=== PATIENT | male | born 1950 | race Caucasian/White ===

== ENCOUNTER 2019-12-11 05:08 | Day surgery (SDC) | payer MEDICARE, SELFPAY ==
[2019-12-11] VITALS (9 sets, daily range): BP systolic 143–160; BP diastolic 74–98; PULSE 62–81; RESP 12–20; TEMP 36.6; O2SAT 94–100; BMI 32.5
--- NOTE | 2019-12-11 10:00 | ECG_ITS ---
Measurements Intervals [place] Rate: 74 P: AL: 0 QRS: 44 QRSD: 105 T: 105 QT: 418 QTc: 464 Interpretive Statements ATRIAL FIBRILLATION VENTRICULAR PREMATURE COMPLEX ANTEROSEPTAL INFARCT, AGE INDETERMINATE BORDERLINE ST-T WAVE ABNORMALITY- INF/LAT LEADS BASELINE ARTIFACT- I, II, III, V1-V3 ABNORMAL ECG Electronically Signed On 12-11-2019 10:48:56 [employer] by Eliot Lacy D.O.
--- NOTE | 2019-12-11 10:02 | SUR.PREOP ---
1000 PATIENT ARRIVES TO [facility] [address] MAHAJAN. AND FAMILY AT BEDSIDE. ORIENTED TO UNIT, PROCEDURE EXPLAINED, ALL QUESTIONS ANSWERED, IV STARTED, LABS DRAWN AND SENT, VITALS OBTAINED, AND CONSENT SIGNED.
--- NOTE | 2019-12-11 10:20 | ECG_ITS ---
Measurements Intervals [place] Rate: 62 P: 39 CT: 211 QRS: 35 QRSD: 108 T: 80 QT: 476 QTc: 485 Interpretive Statements SINUS RHYTHM WITH FIRST DEGREE AV BLOCK VENTRICULAR PREMATURE COMPLEXES LEFT ATRIAL ENLARGEMENT ANTEROSEPTAL INFARCT, AGE INDETERMINATE BORDERLINE ST-T WAVE ABNORMALITY- LATERAL LEADS ABNORMAL ECG Electronically Signed On 12-11-2019 13:23:54 [employer] INTELLIGENCE by Eliot Lacy D.O.
[2019-12-11 10:33] LABS: Basophils Absolute Auto 0.1 K/mm3 (0.0-0.1); Basophils Percent Auto 0.7 % (0.2-1.2); Eosinophils Absolute Auto 0.4 K/mm3 (0-0.3); Eosinophils Percent Auto 5.4 % (0-4.4); Hematocrit 42.7 % (42.0-52.0); Hemoglobin 13.7 g/dL (14.0-18.0); Immature Granulocyte Absolute 0.01 K/mm3 (0.00-0.031); Immature Granulocyte Percent A 0.1 % (0-0.5); Lymphocytes Absolute Auto 1.43 K/mm3 (0.9-3.2); Lymphocytes Percent Auto 21.3 % (18.3-44.2); Mean Corpuscular HGB Conc 32.1 g/dl (32-36); Mean Corpuscular Hemoglobin 30.7 pg (26-34); Mean Corpuscular Volume 95.7 fl (80-100); Mean Platelet Volume 9.9 fl (7.4-10.4); Monocytes Absolute Auto 0.6 K/mm3 (0.1-0.6); Monocytes Percent Auto 9.1 % (2.6-8.5); Neutrophils Absolute Auto 4.3 K/mm3 (1.3-6.7); Neutrophils Percent Auto 63.4 % (45.5-73.1); Platelet Count Result 191 k/mm3 (150-375); Red Blood Count 4.46 M/mm3 (4.6-6.20); Red Cell Distribution Width 13.5 % (11.5-14.5); White Blood Count 6.7 K/mm3 (4.5-10.0)
[2019-12-11 11:19] LABS: Blood Urea Nitrogen 49 mg/dL (9-20); Calcium 8.6 mg/dL (8.4-10.2); Carbon Dioxide 21 mmol/L (22-30); Chloride 110 mmol/L (98-107); Estimated CRCL calculation 36 ml/min; Estimated Glomerular Filt Rate 27; Glucose 105 mg/dL (75-110); Potassium 4.6 mmol/L (3.4-5.0); Sodium 141 mmol/L (137-145)
--- NOTE | 2019-12-11 12:25 | P.HPUP_ITS ---
History and Physical Update Update Date/Time: 12/11/19 12:25 Patient who had cardioversion in July, successfully, but later went back and AFib in complained of feeling sluggish and having some ZAVALETA. He has been started on amiodarone and is here for another cardioversion. He has been compliant with the Eliquis and has not missed any doses. History of CAD, CABG, CKD. Reviewed risks and benefits of cardioversion. Risks include breathing problems, stroke. History and Physical has been reviewed, including an updated exam of the patient. There are NO changes in the patient's condition. Risks, benefits, and alternatives have been discussed and questions answered. Angel ryder agrees to proceed with procedure.
--- NOTE | 2019-12-11 12:26 | WPDMODSED ---
Moderate Sedation Note-Pt Data Patient Data Allergies Allergy/AdvReac Type Severity Reaction Status Date / Time morphine Allergy Mild TREMORS Unverified 07/18/19 13:52 Home Medications Medication Instructions Recorded Confirmed Type amiodarone 200 mg PO DAILY 12/11/19 12/11/19 History amlodipine 10 mg PO DAILY 12/11/19 12/11/19 History apixaban [Eliquis] 5 mg PO BID 12/11/19 12/11/19 History aspirin 81 mg PO DAILY 12/11/19 12/11/19 History atorvastatin 40 mg PO HS 12/11/19 12/11/19 History carvedilol 25 mg PO BID 12/11/19 12/11/19 History insulin lispro [Humalog U-100 See Rx Instructions .ROUTE .COMPLEX 12/11/19 12/11/19 History Insulin] losartan 100 mg PO DAILY 12/11/19 12/11/19 History torsemide 20 mg PO QAM 12/11/19 12/11/19 History Current Medications: Active Medications Sodium Chloride (Normal Saline Iv) 1,000 mls @ 30 mls/hr IV CONT .Q24H AURELIO Sedation/Anesthesia: No previous sedation/anesthesia problems (including family history). [facility] Social History Social History Spiritual care concerns: No Mod Sed Physical Exam Physical Exam Pre Procedural Exam: Normal: Appearance, Eyes, Ears, Nose, Neck, Throat, Airway, Lungs, Heart Size, Heart Rate, Heart Rhythm (Irregular), Neuro Exam, Abdomen, Extremities and Skin and Variation: Heart Rhythm (Irregular) Hours since solid foods: 12 Hours since liquid intake: 12 Internal Medicine - PN: Obj Da Vital Signs Vital Signs: Vital Signs - 24 hr 12/11/19 10:30 12/11/19 12:20 Temperature 36.6 C Pulse Rate 81 76 Respiratory Rate 12 17 Blood Pressure 158/98 H 160/92 H Pulse Oximetry 99 100 Meds/Results Medications: Active Medications Generic Name Dose Route Start Last Admin Trade Name Freq PRN Reason Stop Dose Admin Sodium Chloride 1,000 mls @ 30 mls/hr 12/11/19 06:25 Normal Saline Iv IV CONT .Q24H [facility] Labs CBC & Chem 7: 12/11/19 10:25 12/11/19 10:57 Labs: Laboratory Results - last 24 hr 12/11/19 12/11/19 10:25 10:57 WBC 6.7 RBC 4.46 L Hgb 13.7 L Hct 42.7 MCV 95.7 MCH 30.7 MCHC 32.1 RDW 13.5 Plt Count 191 MPV 9.9 Immature Gran % (Auto) 0.1 Neut % (Auto) 63.4 Lymph % (Auto) 21.3 [place] % (Auto) 9.1 H Eos % (Auto) 5.4 H Baso % (Auto) 0.7 Lymph # (Auto) 1.43 [place] # (Auto) 0.6 Eos # (Auto) 0.4 H Baso # (Auto) 0.1 Abs Immat Gran (auto) 0.01 Absolute Neuts (auto) 4.3 Absolute Nucleated RBC 0.0 Nucleated RBC % 0.0 Sodium 141 Potassium 4.6 Chloride 110 H Carbon Dioxide 21 L BUN 49 H Creatinine 2.40 H Estim Creat Clear Calc 36 Estimated GFR 27 L Glucose 105 Calcium 8.6 Magnesium 2.0 ASA Classification/Sedation ASA Classification/Sedation ASA Class: III Emergent: No Risks: Risks, benefits and alternatives explained and patient/family accepted plan for sedation. Patient re-evaluated immediately prior to sedation.
--- NOTE | 2019-12-11 12:42 | PM.PROC ---
Procedure Note - Detailed Date of procedure: 12/11/19 Pre-op diagnosis: A-FIB Post-op diagnosis: other (Successful cardioversion to NSR) Procedure performed: Conscious sedation new line elective electrical cardioversion Description of procedure: Conscious sedation: Assessment: The patient has no history of anesthesia problems. The patient's oropharynx is clear. The patient was deemed to be a good candidate for conscious sedation. The patient had continuous hemodynamic monitoring during the procedure. Start time: 1231 Completion time: 1241 Total conscious sedation time: 10 minutes Medications: Versed 3 mg, fentanyl 75 mcg IV push Trained observer: Bereket Maciel RN Outcome: The patient tolerated the procedure well with no complications. Cardioversion: After informed consent and the above conscious sedation, the patient underwent elective electrical synchronized cardioversion with 200 joules of biphasic energy and converted to normal sinus rhythm. There were no complications. Anesthesia: other (Conscious sedation) Surgeon: Shayna Matta MD Estimated blood loss (mL): 0 Drains: No Packing: No Pathology: none sent Complications: No immediate complications Condition: stable Disposition: observation Findings: Status post successful cardioversion from atrial fibrillation to sinus rhythm. 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 Hopefully will maintain NSR on amiodarone.
--- NOTE | 2019-12-11 14:00 | SUR.PHASEII ---
8261 Detailed written and verbal discharge instructions reviewed w patient and family at bedside, all verbalize understanding. IV dc'd. 1400 Pt taken out in wheelchair.
== END 2019-12-11 14:00 | disposition home or self-care (01) ==
PROVIDERS: PCP Nurse Practitioner Adult Health; Visit Provider Internal Medicine Cardiovascular Disease
PROC: 5A2204Z Restoration of Cardiac Rhythm, Single (ICD-10-PCS; principal; 2019-12-11 11:30)
DX: I48.0 Paroxysmal atrial fibrillation (principal); I25.10 Atherosclerotic heart disease of native coronary artery without angina pectoris; R06.09 Other forms of dyspnea; I12.9 Hypertensive chronic kidney disease with stage 1 through stage 4 chronic kidney disease, or unspecified chronic kidney disease; N18.4 Chronic kidney disease, stage 4 (severe); E11.22 Type 2 diabetes mellitus with diabetic chronic kidney disease; I25.2 Old myocardial infarction; I25.5 Ischemic cardiomyopathy; I49.3 Ventricular premature depolarization; E78.5 Hyperlipidemia, unspecified; Z79.4 Long term (current) use of insulin; Z79.82 Long term (current) use of aspirin; Z79.01 Long term (current) use of anticoagulants; Z95.1 Presence of aortocoronary bypass graft; Z79.02 Long term (current) use of antithrombotics/antiplatelets
CPT/HCPCS: 36415; 80048; 83735; 85025; 92960; 93005; J2250; J3010; J7040

== ENCOUNTER 2019-12-13 11:00 | Outpatient (RCR) | payer MEDICARE, SELFPAY ==
[2019-10-04 08:08] VITALS: BMI 34.3
[2019-10-04 08:10] VITALS: BMI 34.3
[2019-12-13 10:50] VITALS: BMI 34.3
[2019-12-13 10:54] VITALS: BMI 34.3
== END 2019-12-18 23:59 | disposition home or self-care (01) ==
LOC: ANHDMC 11:00
PROVIDERS: PCP Nurse Practitioner Adult Health; Visit Provider Internal Medicine Endocrinology, Diabetes & Metabolism
DX: E11.65 Type 2 diabetes mellitus with hyperglycemia (principal); Z71.3 Dietary counseling and surveillance; Z71.89 Other specified counseling
CPT/HCPCS: 97802; 97803; G0108; G0109

== ENCOUNTER 2019-12-20 14:30 | Outpatient (RCR) | payer MEDICARE, SELFPAY | END 2020-03-19 23:59 | disposition home or self-care (01) | LOC: ANHDMC 14:30 | PROVIDERS: PCP Nurse Practitioner Adult Health; Visit Provider Internal Medicine Endocrinology, Diabetes & Metabolism | DX: E11.65 Type 2 diabetes mellitus with hyperglycemia (principal); Z71.89 Other specified counseling | CPT/HCPCS: G0108 ==

== ENCOUNTER 2020-01-14 09:17 | Outpatient (CLI) | payer MEDICARE, SELFPAY ==
--- NOTE | 2020-01-16 23:19 | WPDPFTINT ---
PFT Interpretation PFT Interpretation: DOS: 01/14/2020 REQUESTING: Lindy León NP REASON FOR TESTING: Amiodarone monitoring; ZAVALETA PULMONARY FUNCTION TESTS Results are reproducible. Spirometry: Mild decrease in FEV1, 73% predicted, 2.4 L. Mild decrease in FVC, 68%. Normal FEV1%. No bronchodilator was given. Lung volumes: Normal TLC, 100%. Increased residual volume 147% consistent with moderate air trapping. Increased airway resistance. Diffusion: DLCO73%, mildly decreased. Flow volume loop: Unremarkable. IMPRESSION: Mild ventilatory impairment with moderate air trapping and increased airway resistance which suggests an obstructive process. Mild diffusion impairment. There is no prior testing to compare. A trial of bronchodilator therapy can be considered for dyspnea. Annmarie Valenzuela MD
== END 2020-01-14 09:18 | disposition home or self-care (01) ==
PROVIDERS: PCP Nurse Practitioner Adult Health; Visit Provider Nurse Practitioner Adult Health
DX: Z51.81 Encounter for therapeutic drug level monitoring (principal); Z79.899 Other long term (current) drug therapy; R94.2 Abnormal results of pulmonary function studies
CPT/HCPCS: 94375; 94726; 94729

== ENCOUNTER 2020-03-27 09:58 | Outpatient (CLI) | payer MEDICARE, SELFPAY ==
[2020-03-27 10:13] LABS: Basophils Absolute Auto 0.1 K/mm3 (0.0-0.1); Basophils Percent Auto 1.1 % (0.2-1.2); Eosinophils Absolute Auto 0.5 K/mm3 (0-0.3); Eosinophils Percent Auto 7.1 % (0-4.4); Hematocrit 40.9 % (42.0-52.0); Hemoglobin 13.4 g/dL (14.0-18.0); Immature Granulocyte Absolute 0.03 K/mm3 (0.00-0.031); Immature Granulocyte Percent A 0.5 % (0-0.5); Lymphocytes Absolute Auto 1.52 K/mm3 (0.9-3.2); Mean Corpuscular HGB Conc 32.8 g/dl (32-36); Mean Corpuscular Hemoglobin 31.2 pg (26-34); Mean Corpuscular Volume 95.3 fl (80-100); Mean Platelet Volume 9.4 fl (7.4-10.4); Monocytes Absolute Auto 0.8 K/mm3 (0.1-0.6); Monocytes Percent Auto 11.8 % (2.6-8.5); Neutrophils Absolute Auto 3.5 K/mm3 (1.3-6.7); Neutrophils Percent Auto 55.5 % (45.5-73.1); Platelet Count Result 171 k/mm3 (150-375); Red Blood Count 4.29 M/mm3 (4.6-6.20); Red Cell Distribution Width 14.2 % (11.5-14.5); White Blood Count 6.3 K/mm3 (4.5-10.0)
== END 2020-03-27 09:59 | disposition home or self-care (01) ==
LOC: ANHLAB 10:01
PROVIDERS: PCP Nurse Practitioner Adult Health; Visit Provider Nurse Practitioner Adult Health
DX: Z79.01 Long term (current) use of anticoagulants (principal)
CPT/HCPCS: 36415; 85025

== ENCOUNTER 2020-12-31 09:00 | Outpatient (RCR) | payer MEDICARE, SELFPAY ==
[2020-10-02 12:20] VITALS: PULSE 63
[2020-10-13 17:35] LABS: Glucose Point of Care 107 (65-105)
[2020-10-16 07:14] LABS: Glucose Point of Care 132 (65-105)
[2020-10-16 07:14] LABS: Glucose Point of Care 105 (65-105)
[2020-10-16 07:14] LABS: Glucose Point of Care 81 (65-105)
[2020-10-16 17:42] LABS: Glucose Point of Care 198 (65-105)
[2020-10-16 17:42] LABS: Glucose Point of Care 157 (65-105)
[2020-11-05 15:06] LABS: Glucose Point of Care 88 (65-105)
[2020-11-05 15:06] LABS: Glucose Point of Care 118 (65-105)
--- NOTE | 2020-12-04 07:55 | PCCPR ---
Miguel Ritchie called states having some plumbing work done at home will not make it in today.
[2020-12-17 10:42] LABS: Glucose Point of Care 320 (65-105)
--- NOTE | 2020-12-29 08:15 | PCCPR ---
absent today due to inclement weather
== END 2020-12-31 23:59 | disposition home or self-care (01) ==
LOC: ANHCPREHAB 09:00
PROVIDERS: PCP Nurse Practitioner Adult Health; Visit Provider Nurse Practitioner Adult Health
DX: Z95.5 Presence of coronary angioplasty implant and graft (principal)
CPT/HCPCS: 82948; 93798

== ENCOUNTER 2021-01-01 09:55 | Outpatient (RCR) | payer MEDICARE, SELFPAY ==
[2021-01-01 00:04] VITALS: PULSE 63
== END 2021-01-01 11:10 | disposition home or self-care (01) ==
LOC: ANHCPREHAB 09:55
PROVIDERS: PCP Nurse Practitioner Adult Health; Visit Provider Nurse Practitioner Adult Health
DX: Z95.5 Presence of coronary angioplasty implant and graft (principal)
CPT/HCPCS: 93798

== ENCOUNTER 2022-11-11 12:53 | Emergency (ER) | payer MEDICARE, SELFPAY ==
--- NOTE | 2022-11-11 13:15 | ED.URI ---
HPI - URI/Sore Throat General Chief Complaint: Upper Respiratory Infection Stated Complaint: flu Time Seen by Provider: 11/11/22 14:20 Source: patient, RN notes reviewed and old records reviewed Mode of arrival: ambulatory Limitations: no limitations History of Present Illness HPI Narrative: 72-year-old male presents to the [facility] with complaints of body aches, chills, generalized not feeling well for 5 to 6 days. Was told by his dialysis center he needed to ?find out what it is. ? Patient stating that he is feeling a little bit better than he has been. Related Data Home Medications Medication Instructions Recorded Confirmed amiodarone 200 mg tablet 200 mg PO DAILY 12/11/19 12/11/19 amlodipine 10 mg tablet 10 mg PO DAILY 12/11/19 12/11/19 apixaban 5 mg tablet (Eliquis) 5 mg PO BID 12/11/19 12/11/19 aspirin 81 mg chewable tablet 81 mg PO DAILY 12/11/19 12/11/19 atorvastatin 40 mg tablet 40 mg PO HS 12/11/19 12/11/19 carvedilol 25 mg tablet 37.5 mg PO BID 12/11/19 10/02/20 insulin lispro 100 unit/mL See Rx Instructions .Route .COMPLEX 12/11/19 12/11/19 subcutaneous solution (Humalog U-100 Insulin) bumetanide 1 mg tablet 1 mg 10/02/20 finasteride 5 mg tablet 5 mg DAILY 10/02/20 10/02/20 sodium bicarbonate 650 mg tablet 650 mg PO BID 10/02/20 10/02/20 tamsulosin 0.4 mg capsule 0.4 mg PO 10/02/20 tramadol 50 mg tablet 50 mg PO PRN Pain 10/02/20 chlorthalidone 25 mg tablet 25 mg PO DAILY 11/11/22 11/11/22 Allergies Allergy/AdvReac Type Severity Reaction Status Date / Time morphine Allergy Mild TREMORS Unverified 11/11/22 13:41 Review of Systems Review of Systems: All systems reviewed & are unremarkable except as noted in HPI and below Constitutional: Constitutional: Reports as per HPI, Reports chills and Reports fatigue Eyes: Eyes: Reports no additional eye complaints ENT: Reports system reviewed and no additional complaints, except as documented Cardiovascular: Cardiovascular: Reports no additional cardiovascular complaints, Denies chest pain and Denies dyspnea Respiratory: Respiratory: Reports no additional respiratory complaints, Denies chest congestion, Denies cough and Denies dyspnea Gastrointestinal: Gastrointestinal: Reports no additional gastrointestinal complaints, Denies abdominal pain, Denies nausea and Denies vomiting Musculoskeletal: Musculoskeletal: Reports no additional musculoskeletal complaints Integumentary/Breasts: Skin/Breast: Reports system reviewed and no additional complaints, except as docu Neurologic: Reports system reviewed and no additional complaints, except as documented Psychiatric: Psychiatric: Reports no additional psychiatric complaints Allergic/Immunologic: Allergic/Immunologic: Reports no additional allergic/immunologic complaints PMFSH Family History Family History Father No problems noted. Sibling Hypertension Cancer Grandparent Hypertension Diabetes mellitus Mother Ovarian cancer Sibling Cancer Social History Social History Smoking status: Never smoker Spiritual care concerns: No Comments At the time of my signature, I reviewed and agree with the nursing past medical, surgical, social, and family history. There is no relevant family history pertinent to the patient complaint. Exam Const: General: cooperative, healthy appearing, comfortable, no acute distress, well developed, alert and well nourished Nutritional Appearance: well nourished and obese Orientation/consciousness: patient oriented x3 Limitations: no limitations HENMT: Head: normal to inspection Ears: hearing grossly normal bilaterally and external ears normal Face/Nose/Sinus: Normal external nose present, Normal nares present, Normal nasal mucous membranes and turbinates present and normal facial exam Face and sinus: normal facial exam Mouth: Yes Normal oral and jordon
[2022-11-11 13:27] VITALS: BP 116/60; PULSE 68; RESP 23; TEMP 36.7; O2SAT 98
== END 2022-11-11 14:27 | disposition home or self-care (01) ==
PROVIDERS: Emergency Provider Nurse Practitioner; PCP Internal Medicine Nephrology
DX: J10.1 Influenza due to other identified influenza virus with other respiratory manifestations (principal); Z20.822 Contact with and (suspected) exposure to COVID-19; Z79.82 Long term (current) use of aspirin; I25.10 Atherosclerotic heart disease of native coronary artery without angina pectoris; Z95.5 Presence of coronary angioplasty implant and graft; E78.00 Pure hypercholesterolemia, unspecified; I25.2 Old myocardial infarction; J44.9 Chronic obstructive pulmonary disease, unspecified; I13.11 Hypertensive heart and chronic kidney disease without heart failure, with stage 5 chronic kidney disease, or end stage renal disease; E11.22 Type 2 diabetes mellitus with diabetic chronic kidney disease; N18.6 End stage renal disease; Z99.2 Dependence on renal dialysis; Z79.4 Long term (current) use of insulin
CPT/HCPCS: 87426; 87804; 99213; C9803; G0463

== ENCOUNTER 2023-02-11 09:26 | Outpatient (CLI) | payer MEDICARE, SELFPAY ==
--- NOTE | 2023-02-11 | ECHO_ITS ---
Patient Info Name: Erma Harmon Age: 72 years : 1950 Gender: Male Ht: 73 in Wt: 225 lbs BSA: 2.31 m2 HR: 87 bpm BP: 110 / 65 mmHg Heart Rhythm: Sinus Rhythm Exam Date: 02/11/2023 10:04 AM Exam Location: [facility] Patient Status: Outpatient Admit Date: 02/11/2023 Staff Ordering Physician: Shayna Matta MD Patron Attendant: Rafael Fleming, THEA, RT Attending Provider: Shayna Matta MD Referring Physician: Sigrid DUNCAN; Exam Type: CA echo doppler color flow Study Info Indications I35.0 - Nonrheumatic aortic (valve) stenosis Complete two-dimensional, color flow and Doppler transthoracic echocardiogram is performed. Strain analysis performed. Summary 1. Complete two-dimensional, color flow and Doppler transthoracic echocardiogram is performed. 2. Moderate concentric LVH with good systolic function and grade 1 diastolic noncompliance. 3. Mild aortic valve stenosis with calcification and immobilization of the right coronary cusp. 4. Overall mild aortic stenosis valve area of approximately 1.6 cm2. 5. Grade 1 diastolic noncompliance. Left Ventricle Left ventricular chamber dimension is normal. Left ventricular systolic function is normal, estimated at 55-60%. There is moderate concentric increased left ventricular wall thickness. The left ventricular diastolic function is grade I diastolic dysfunction. Right Ventricle Right ventricular chamber dimension is normal. Left Atria Left atrial chamber dimension is normal. Right Atria Right atrial chamber dimension is normal. Aortic Valve The aortic valve is trileaflet. There is mild aortic valve stenosis with a peak velocity of 240 cm/s, mean gradient of 14 mmHg, and aortic valve area of 1.9 cm2. There is no aortic valve regurgitation. Pulmonic Valve The pulmonic valve is not well visualized. Mitral Valve The mitral valve has normal leaflets. The mitral valve annulus is mildly calcified. Tricuspid Valve The tricuspid valve leaflets are normal. Pericardium/Pleural The pericardium appears normal. Aorta The aortic root size at the sinus of Valsalva is normal. Left Ventricular Outflow Tract Name Value Normal LVOT 2D LVOT Diameter 2.1 cm LVOT Doppler LVOT Peak Gradient 7 mmHg LVOT Mean Gradient 4 mmHg LVOT VTI 24 cm LVOT VTI/AV VTI Ratio 0.6 LVOT Stroke Volume 81 ml LVOT CO 6.5 l/min LVOT CI 2.8 l/min/m2 Mitral Valve Name Value Normal MV Doppler MV Decel [place] 357 cm/s2 MV PHT 52 ms MV Area (PHT) 4.2 cm2 4.0-5.0 MV Diastolic Function ---------
== END 2023-02-11 09:27 | disposition home or self-care (01) ==
PROVIDERS: Visit Provider Internal Medicine Cardiovascular Disease
DX: I35.0 Nonrheumatic aortic (valve) stenosis (principal)
CPT/HCPCS: 93306

== ENCOUNTER 2023-03-03 12:44 | Inpatient (IN) | payer MEDICARE, SELFPAY ==
--- NOTE | ~2023-03-03 | CT_ITS ---
Non-contrast CT scan of the Abdomen and Pelvis Clinical indication: Pain Technique: 2.5 mm axial scans were obtained through the abdomen and pelvis without intravenous or or al contrast. Dose reduction technique was used on this scan by utilizing automated exposure control a nd iterative reconstruction technique. The dose-length product (DLP) was 1330.69 mGy-cm. COMPARISON: 10/02/2019 Findings: Images through the lung bases reveal chronic scarring or atelectasis at the right middle l obe, unchanged. There is no evidence of renal or ureteral calculi. The kidneys and the ureters are nondilated. The liver, spleen, pancreas, and adrenals appear normal. Probable post cholecystectomy change versus contracted gallbladder with small stones. There is no aortic aneurysm. There is no evidence of bowel obstruction. Images through the pelvis were performed. There is no evidence of ascites or lymphadenopathy. There i s present in the urinary bladder. Prostate gland minimally enlarged. Advanced degenerative spondylosi s of the lumbar spine noted. Impression: Air in the urinary bladder. Correlate for iatrogenic air versus any possibility of infectious process . No distinct evidence to suggest fistula, but this would be an alternative consideration as well. Reviewed, dictated and finalized at location . Impression: Air in the urinary bladder. Correlate for iatrogenic air versus any possibility of infectious process. No distinct evidence to suggest fistula, but this would be an alternative consideration as well.
--- NOTE | ~2023-03-03 | CT_ITS ---
EXAMINATION: CT lumbar spine wo con DATE: 03/06/2023 12:49 INDICATION: Right-sided lumbar radiculopathy. TECHNIQUE: Computed tomography (CT) of the lumbar spine was performed without intravenous contrast. A utomated exposure control and iterative reconstruction technique were employed. The dose-length produ ct was 1302.71 mGy-cm. COMPARISON: None FINDINGS: There is 12 degrees levoscoliosis of lumbar spine. There is 3 mm retrolisthesis of L4 on L5 and L5 on S1. Vertebral body heights are normal. There is severely decreased disc height from L2-L3 through L5-S1 with endplate remodeling. Osseous central spinal canal is developmentally small in lumb ar spine. The following disc levels are specifically discussed: L1-L2: The disc is bulging. There is moderate bilateral facet joint osteoarthritis. There is mild jose daniel ateral neural foraminal stenosis. There is mild central canal stenosis. L2-L3: The disc is bulging. There is severe bilateral facet joint osteoarthritis. There is moderate b ilateral neural foraminal stenosis. There is moderate central canal stenosis. L3-L4: The disc is bulging. There is severe bilateral facet joint osteoarthritis. There is moderate b ilateral neural foraminal stenosis. There is severe central canal stenosis. L4-L5: The disc is bulging. There is severe bilateral facet joint osteoarthritis. There is moderate b ilateral neural foraminal stenosis. There is severe central canal stenosis. L5-S1: The disc is bulging. There is severe bilateral facet joint osteoarthritis. There is moderate b ilateral neural foraminal stenosis. There is moderate central canal stenosis. IMPRESSION: 1. Severe lumbar spondylosis. Reviewed, dictated and finalized at location A.
--- NOTE | ~2023-03-03 | XR_ITS ---
EXAM: XR hip RT min 2V DATE: 03/06/2023 12:55 HISTORY: pain, right hip radiating, no injury . COMPARISON: None available. FINDINGS: Normal mineralization. No fracture or dislocation. No lytic or blastic lesion. Severe supe rior right hip joint space narrowing, with likely [id number] contact. Moderate right hip osteophyto sis. Mild scattered pelvic enthesopathy. Degenerative change in the lower lumbar spine. No erosion or periosteal change. Atherosclerotic vascular calcification. IMPRESSION: Severe right hip osteoarthritis. Reviewed, dictated and finalized at location K.
[2023-03-03 13:19] VITALS: BP 122/64; PULSE 72; RESP 18; TEMP 35.7; O2SAT 96
[2023-03-03 15:03] LABS: Basophils Absolute Auto 0.1 K/mm3 (0.0-0.1); Basophils Percent Auto 1.2 % (0.2-1.2); Eosinophils Absolute Auto 0.3 K/mm3 (0-0.3); Eosinophils Percent Auto 4.2 % (0-4.4); Hematocrit 34.8 % (42.0-52.0); Hemoglobin 11.3 g/dL (14.0-18.0); Immature Granulocyte Absolute 0.03 K/mm3 (0.00-0.031); Immature Granulocyte Percent A 0.4 % (0-0.5); Lymphocytes Absolute Auto 1.42 K/mm3 (0.9-3.2); Lymphocytes Percent Auto 20.8 % (18.3-44.2); Mean Corpuscular HGB Conc 32.5 g/dl (32-36); Mean Corpuscular Hemoglobin 33.6 pg (26-34); Mean Corpuscular Volume 103.6 fl (80-100); Mean Platelet Volume 9.6 fl (7.4-10.4); Monocytes Absolute Auto 0.6 K/mm3 (0.1-0.6); Monocytes Percent Auto 8.6 % (2.6-8.5); Neutrophils Absolute Auto 4.4 K/mm3 (1.3-6.7); Neutrophils Percent Auto 64.8 % (45.5-73.1); Platelet Count Result 147 k/mm3 (150-375); Red Blood Count 3.36 M/mm3 (4.6-6.20); White Blood Count 6.8 K/mm3 (4.5-10.0)
[2023-03-03] MEDS: ACETAMINOPHEN 500 MG TABLET 1000 MG PO (15:09)
[2023-03-03] MEDS: CYCLOBENZAPRINE HCL 5 MG TABLET PO (15:09)
[2023-03-03 15:36] LABS: Appearance Urine Turbid (Clear); Bacteria Urine 4+ /hpf; Bilirubin Urine Negative (Negative); Blood Urine 2+ (Negative); Color Urine Yellow (Yellow); Glucose Urine UA Negative (Negative); Ketones Urine Negative (Negative); Leukocyte Esterase Ur 3+ LEU/UL (Negative); Mucus Urine Present /lpf; Need Manual Microscopic Reviewed; Nitrate Urine Negative (Negative); Non Pathogenic Casts >20; Protein Urine 2+ mg/dL (Negative); RBC Urine 0-2 /hpf (0-2); Specific Grav Ur 1.016 (1.001-1.035); Squamous Epithelial Cell Urine Few /hpf (Few); WBC Urine >100 /hpf; pH Urine 6.5 (5.0-9.0)
[2023-03-03 15:38] LABS: Add Urine Microscopic? YES
--- NOTE | 2023-03-03 15:56 | ED.GENADULT ---
HPI - General Adult General Chief complaint: Unspecified <TALYA Corral Last Filed: 03/03/23 19:37> Stated complaint: severe buttock pain, sciatica <TALYA Corral Last Filed: 03/03/23 19:37> Time Seen by Provider: 03/03/23 13:33 <TALYA Corral Last Filed: 03/03/23 19:37> Source: patient <TALYA Corral Last Filed: 03/03/23 19:37> Mode of arrival: ambulatory <TALYA Corral Last Filed: 03/03/23 19:37> Limitations: no limitations <TALYA Corral Last Filed: 03/03/23 19:37> History of Present Illness HPI narrative: Patient is a 73 y/o male who presents to the ED with c/o right lower back pain. Patient reports having intermittent pain in his right lower back, extending down his buttock and posterior leg for the past 2 weeks. He states pain is worse with standing upright, in the mornings, and with walking. He denies any fall or injury. He has been taking ibuprofen for this which does provide relief of the pain temporarily. Denies any fever, abdominal pain, nausea, vomiting. Denies any saddle anesthesia, numbness, weakness, bowel or bladder incontinence. Denies known history of sciatica. He does report history of end-stage renal disease on hemodialysis MWF, awaiting kidney transplant, history of numerous kidney stones and kidney infections. <TALYA Corral Last Filed: 03/03/23 19:37> Related Data Home medications: Home Medications Medication Instructions Recorded Confirmed amiodarone 200 mg tablet 200 mg PO HS 12/11/19 03/03/23 atorvastatin 40 mg tablet 40 mg PO HS 12/11/19 03/03/23 carvedilol 25 mg tablet 25 mg PO BID 12/11/19 03/03/23 insulin lispro 100 unit/mL See Rx Instructions .Route .COMPLEX 12/11/19 03/03/23 subcutaneous solution (Humalog U-100 Insulin) finasteride 5 mg tablet 5 mg PO HS 10/02/20 03/03/23 tamsulosin 0.4 mg capsule 0.4 mg PO HS 10/02/20 03/03/23 tramadol 50 mg tablet 50 mg PO DAILY PRN Pain 10/02/20 03/03/23 citalopram 20 mg tablet 20 mg PO DAILY 03/03/23 03/03/23 pramipexole 0.5 mg tablet 0.5 mg PO BID 03/03/23 03/03/23 sevelamer carbonate 800 mg tablet 800 mg PO TID 03/03/23 03/03/23 torsemide 20 mg tablet 40 mg PO DAILY 03/03/23 03/03/23 warfarin 5 mg tablet 5 mg PO HS 03/03/23 03/03/23 <Brenda Le PA-C - Last Filed: 03/03/23 19:37> Allergies/adverse reactions: Allergies Allergy/AdvReac Type Severity Reaction Status Date / Time morphine Allergy Mild TREMORS Verified 03/03/23 13:29 <Brenda Le PA-C - Last Filed: 03/03/23 19:37> Review of Systems Review of Systems: CONSTITUTIONAL: Denies fever, chills, or sweats. CARDIOVASCULAR: Denies chest pain. RESPIRATORY: Denies dyspnea. GASTROINTESTINAL: Denies abdominal pain, nausea, vomiting, or diarrhea. GENITOURINARY: See HPI. SKIN: Denies rash or itching. MUSCULOSKELETAL: See HPI. NEUROLOGIC: Denies tingling, numbness, or weakness. <TALYA Corral Last Filed: 03/03/23 19:37> All systems reviewed & are unremarkable except as noted in HPI and below <TALYA Corral Last Filed: 03/03/23 19:37> [facility] Past Medical History Medical History: Medical History Atrial fibrillation AV fistula 3 attempts BPH (benign prostatic hyperplasia) DM2 (diabetes mellitus, type 2) ESRD (end stage renal disease) on dialysis HLD (hyperlipidemia) HTN (hypertension) Obstructive sleep apnea Seizure disorder <TALYA Corral Last Filed: 03/03/23 19:37> Surgical History Surgical History: Surgical History H/O carpal tunnel repair H/O cataract extraction H/O cystoscopy H/O eye surgery H/O four vessel coronary artery bypass graft H/O heart artery stent X3 H/O shoulder surgery Left shoulder History of back surgery X3 History
[2023-03-03 16:06] LABS: Alanine Aminotransferase 18 U/L (6-50); Albumin Level 3.6 g/dL (3.5-5.1); Alkaline Phosphatase 66 U/L (38-126); Anion Gap 9 mmol/L (8-16); Aspartate Amino Transferase 19 U/L (17-59); Bilirubin,Total 0.6 mg/dL (0.2-1.3); Blood Urea Nitrogen 34 mg/dL (9-20); Calcium 7.4 mg/dL (8.4-10.2); Carbon Dioxide 27 mmol/L (22-30); Chloride 103 mmol/L (98-107); Estimated CRCL calculation 17 ml/min; Estimated Glomerular Filt Rate 14; Glucose 97 mg/dL (65-110); Potassium 4.2 mmol/L (3.4-5.0); Sodium 139 mmol/L (137-145)
[2023-03-03] MEDS: SODIUM CHLORIDE 0.9% IV 500 ML 999 ML IV CONT (17:28)
--- NOTE | 2023-03-03 17:28 | PC.NURSE ---
no cultures needed per provider before antibiotics.
[2023-03-03 18:41] VITALS: BP 128/79; PULSE 75; RESP 19; O2SAT 100
[2023-03-03 19:48] VITALS: BP 132/69; PULSE 75; O2SAT 95
[2023-03-03 20:40] VITALS: BP 143/63; PULSE 74; RESP 20; TEMP 36.7; O2SAT 97; BMI 27.9
--- NOTE | 2023-03-03 21:22 | PM.IMHP ---
H&P: HPI History of Present Illness Date/Time: 03/03/23 21:22 Chief Complaint: Severe buttock pain Narrative: This is a 73-year-old male patient who has end-stage renal disease he has dialysis on Tuesday. The patient stated they came to the emergency room for complaint of right lower back pain. He has been intermittent to his right lower back and extending down to his buttocks and posterior leg for the past 2 weeks. It is worse when he stands up and in the mornings of while walking. Patient denies any falls or injuries. The patient has been taking ibuprofen which does provide some relief but only temporary. The patient does have dialysis 3 days a week and is awaiting a renal transplant. Patient denies any nausea vomiting or diarrhea. He has no fever chills. Patient has had numerous kidney stones and kidney infections in the past. His H&H is 11.3 and 34.8. MCV is 103.6. Platelets are 147. The patient usually has an Omnipod for insulin but it was taken off today. The patient does not have his continues glucose monitor on today. Patient's BUN is 34 creatinine 4.2. His GFR is 14. The patient now has a Huizar catheter and is draining cloudy yellow urine. Patient has 3+ leukocyte esterase and greater than 100 rbc's. 4+ bacteria. Abdominal pelvis CT was read as air in the urinary bladder. Correlate for I a tonic air versus any possibility of infectious process. No distinct evidence to suggest fistula but this would be an alternative consideration as well. Urology and Nephrology have been consulted. The patient was started on Rocephin. He was given Tylenol, Flexeril and a L of IV fluids. The patient is being admitted to observation status on the date of service of 03/03/2023. Review of Systems Review of Systems: All systems reviewed & are unremarkable except as noted in HPI and below Constitutional: Constitutional: Reports as per HPI and Reports no additional constitutional complaints Eyes: Eyes: Reports as per HPI and Reports no additional eye complaints ENT: Reports system reviewed and no additional complaints, except as documented and Reports Normal hearing present Cardiovascular: Cardiovascular: Reports no additional cardiovascular complaints Respiratory: Respiratory: Reports no additional respiratory complaints and Reports no additional respiratory complaints Gastrointestinal: Gastrointestinal: Reports as per HPI and Reports no additional gastrointestinal complaints Musculoskeletal: Musculoskeletal: Reports no additional musculoskeletal complaints Integumentary/Breasts: Skin/Breast: Reports system reviewed and no additional complaints, except as docu and Reports as per HPI Neurologic: Reports system reviewed and no additional complaints, except as documented, Reports as per HPI and Reports Normal hearing present Psychiatric: Psychiatric: Reports no additional psychiatric complaints and Reports as per HPI Endocrine: Endocrine: Reports no additional endocrine complaints Hematologic/Lymphatic: Hematologic/Lymphatic: Reports no additional hematologic/lymphatic complaints Allergic/Immunologic: Allergic/Immunologic: Reports no additional allergic/immunologic complaints [facility] Past Medical History Medical History (Updated 03/03/23 @ 23:55 by Josette Washington NP) Atrial fibrillation AV fistula 3 attempts BPH (benign prostatic hyperplasia) DM2 (diabetes mellitus, type 2) ESRD (end stage renal disease) on dialysis HLD (hyperlipidemia) HTN (hypertension) Obstructive sleep apnea Seizure disorder Surgical History Surgical History (Updated 03/03/23 @ 23:57 by Josette Washington NP) H/O carpal tunnel repair H/O cataract extraction H/O cystoscopy H/O eye surgery H/O four vessel coronary artery bypass graft H/O heart artery stent X3 H/O shoulder surgery Left shoulder History of back surgery X3 History of bladder surgery History of parathyroid surgery S/P cubital tunnel release Family Histor
--- NOTE | 2023-03-03 21:30 | ADMGEN ---
This patient, Erma Harmon, was admitted to [facility] Surg Room 305-02. Patient/family oriented to hospital policies and general routines including ID bracelet, bed and alarms, visiting hours, pain management, procedures, bathroom and other care routines, personal items, smoking policy, room service/diet, and visiting hours. Information on how to activate the Rapid Response Team has been discussed. Patient/Family are encouraged to report perceived risks to care and to ask questions if they do not understand what they are told or what they should do.
[2023-03-03 22:42] LABS: Glucose Point of Care 167 mg/dl (65-105)
[2023-03-04] VITALS (19 sets, daily range): BP systolic 87–157; BP diastolic 48–99; PULSE 48–93; RESP 14–20; TEMP 36–37.2; O2SAT 94–99; BMI 27.9
[2023-03-04 00:16] LABS: INR 1.7; Prothrombin Time 19.3 Seconds (11.1-14.7)
[2023-03-04] MEDS: FINASTERIDE 5 MG TABLET PO ×2 (00:16→21:35)
[2023-03-04] MEDS: PRAMIPEXOLE 0.5 MG TABLET PO ×3 (00:16→16:01)
[2023-03-04] MEDS: ATORVASTATIN 40 MG TABLET PO ×2 (00:17→21:35)
[2023-03-04] MEDS: TAMSULOSIN HCL 0.4 MG CAPSULE PO ×2 (00:17→21:35)
[2023-03-04] MEDS: carvediloL 25 MG TABLET PO ×2 (00:17→08:57)
[2023-03-04] MEDS: WARFARIN (*PBKC) 5 MG TABLET PO ×2 (01:20→16:01)
[2023-03-04 07:07] LABS: Basophils Absolute Auto 0.1 K/mm3 (0.0-0.1); Eosinophils Absolute Auto 0.3 K/mm3 (0-0.3); Hematocrit 32.2 % (42.0-52.0); Hemoglobin 10.6 g/dL (14.0-18.0); Immature Granulocyte Absolute 0.03 K/mm3 (0.00-0.031); Immature Granulocyte Percent A 0.4 % (0-0.5); Lymphocytes Absolute Auto 1.21 K/mm3 (0.9-3.2); Lymphocytes Percent Auto 17.4 % (18.3-44.2); Mean Corpuscular HGB Conc 32.9 g/dl (32-36); Mean Corpuscular Hemoglobin 33.1 pg (26-34); Mean Corpuscular Volume 100.6 fl (80-100); Mean Platelet Volume 9.4 fl (7.4-10.4); Monocytes Absolute Auto 0.5 K/mm3 (0.1-0.6); Monocytes Percent Auto 7.6 % (2.6-8.5); Neutrophils Absolute Auto 4.8 K/mm3 (1.3-6.7); Neutrophils Percent Auto 69.6 % (45.5-73.1); Platelet Count Result 127 k/mm3 (150-375); Red Cell Distribution Width 14.9 % (11.5-14.5)
[2023-03-04 07:14] LABS: Hemoglobin A1C 6.9 % (<5.7)
[2023-03-04 07:17] LABS: Lactic Acid Reflex 0.6 mmol/L (0.7-2.0)
[2023-03-04 07:19] LABS: INR 1.8
[2023-03-04 07:22] LABS: Alanine Aminotransferase 22 U/L (6-50); Albumin Level 4.2 g/dL (3.5-5.1); Alkaline Phosphatase 77 U/L (38-126); Anion Gap 12 mmol/L (8-16); Aspartate Amino Transferase 21 U/L (17-59); Bilirubin,Total 0.6 mg/dL (0.2-1.3); Blood Urea Nitrogen 46 mg/dL (9-20); Calcium 8.5 mg/dL (8.4-10.2); Carbon Dioxide 30 mmol/L (22-30); Chloride 97 mmol/L (98-107); Estimated CRCL calculation 11 ml/min; Estimated Glomerular Filt Rate 9; Glucose 126 mg/dL (65-110); Magnesium 2.2 mg/dL (1.6-2.3); Potassium 4.9 mmol/L (3.4-5.0); Sodium 139 mmol/L (137-145)
[2023-03-04 07:49] LABS: Thyroid Stimulating Hormone Reflex 0.478 uIU/mL (0.465-4.68)
[2023-03-04 08:05] LABS: Glucose Point of Care 132 mg/dl (65-105)
[2023-03-04 08:06] LABS: Hepatitis B Surface Antigen Negative (Negative)
[2023-03-04 08:11] LABS: HAV RESULT Negative (Negative); Hepatitis B Core IgM Result Negative (Negative)
[2023-03-04 08:23] LABS: Hepatitis B Surface Anti Res Negative; Hepatitis C Virus Antibody Negative (Negative)
[2023-03-04] MEDS: SEVELAMER CARBONATE 800 MG TABLET PO ×2 (08:58→16:01)
[2023-03-04] MEDS: CITALOPRAM HYDROBROMIDE 20 MG TABLET PO (08:58)
[2023-03-04] MEDS: TORSEMIDE 20 MG TABLET 40 MG PO (08:58)
--- NOTE | 2023-03-04 09:58 | WPDURCON ---
Assessment and Plan Assessment and plan (1) Abnormal urinalysis: Code(s): R82.90 - Unspecified abnormal findings in urine Status: Acute Assessment and Plan: Huizar catheter is in place. Awaiting urine culture. When culture returns could likely be sent home on 10 days of oral antibiotics without a Huizar catheter (2) Pneumaturia: Code(s): R39.89 - Other symptoms and signs involving the genitourinary system Status: Acute Assessment and Plan: I viewed the radiology imaging. He has air within his bladder lumen. I am not so sure there was actually air within the bladder wall. The bladder is quite decompressed. He is clinically stable and not ill-appearing. See plan above Outpatient cystoscopy Urology Consult Note HPI Date Seen: 03/04/23 Requesting Physician: Rosangela Albert DO Primary Care Provider: Adri Singh, PLUMBING ENGINEER Consult Narrative Narrative: Erma Harmon is a 73 year old male whom think the request of the hospitalist and the ER for a radiologic abnormality. He came into the hospital with worsening pain in his hip which he felt was consistent with his sciatica. Upon further questioning he endorsed pneumaturia. This led to a CT scan showing air within the urinary bladder. I view the imaging myself. The bladder was rude decompressed. There was definitely air within the bladder lumen. It is very difficult to tell if there is air within the bladder wall which would be consistent with emphysematoius cystitis. He really has no significant urinary symptoms. He denies dysuria. He makes very little urine as he is on dialysis 3 times weekly. He has not endorsed fecal urea. He has no history of diverticulitis. He does note pneumoturia. He has had no fevers chills. He has had no blood in the urine Review of Systems Review of Systems: All systems reviewed & are unremarkable except as noted in HPI and below PMFSH Past Medical History Medical History Atrial fibrillation AV fistula 3 attempts BPH (benign prostatic hyperplasia) DM2 (diabetes mellitus, type 2) ESRD (end stage renal disease) on dialysis HLD (hyperlipidemia) HTN (hypertension) Obstructive sleep apnea Seizure disorder Surgical History Surgical History H/O carpal tunnel repair H/O cataract extraction H/O cystoscopy H/O eye surgery H/O four vessel coronary artery bypass graft H/O heart artery stent X3 H/O shoulder surgery Left shoulder History of back surgery X3 History of bladder surgery History of parathyroid surgery S/P cubital tunnel release Family History Family History Father No problems noted. Sibling Hypertension Cancer Grandparent Hypertension Diabetes mellitus Mother Ovarian cancer Sibling Cancer Social History Social History Social History: The patient has 5 children in the last child has Down syndrome. That child lives with him and his . 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 Code status full code Smoking status: Never smoker Alcohol intake: former Substance use: former Lack of Transportation: No Lack of Food: Never True Current Housing: I Have Housing Concerned About Future Housing: No Difficulty Paying Gas/Electric Bills: No Difficulty Paying for Meds: YES Currently Unemployed: No Education: High School Diploma/GED Difficulty w/ Childcare or Family Care: No Spiritual care concerns: No Meds Home Medications and Allergies Home Medications Medication Instructions Recorded Confirmed Type amiodarone 200 mg tablet 200 mg PO HS 12/11/19 03/03/23 History atorvastatin 40 mg tablet 40 m
--- NOTE | 2023-03-04 11:50 | PM.CNNEP ---
Assessment and Plan Assessment and plan (1) End stage renal disease: Code(s): N18.6 - End stage renal disease Status: Chronic Assessment and Plan: HD today continue M/W/F dialysis schedule while hospitalized follow electrolytes, volume status, and clearance (2) Urinary tract infection: Qualifiers: Hematuria presence: without hematuria Urinary tract infection type: acute cystitis Qualified Code(s): N30.00 - Acute cystitis without hematuria Code(s): N39.0 - Urinary tract infection, site not specified Status: Acute Assessment and Plan: as evidened by admission UA complicated by air in bladder as noted by imaging Urology recommendations noted follow culture data on antibiotic therapy (3) HTN (hypertension): Code(s): I10 - Essential (primary) hypertension Status: Chronic Assessment and Plan: reasonable control at this time follow trend of hemodynamics (4) Acute right-sided low back pain with right-sided sciatica: Code(s): M54.41 - Lumbago with sciatica, right side Status: Acute Assessment and Plan: pain control PT/OT as tolerated (5) Atrial fibrillation: Code(s): I48.91 - Unspecified atrial fibrillation Status: Chronic Assessment and Plan: continue rate control strategy on anticoagulation - follow INR (on coumadin) (6) DM2 (diabetes mellitus, type 2): Code(s): E11.9 - Type 2 diabetes mellitus without complications Status: Acute Assessment and Plan: follow accuchecks glycemic control per hospitalists I have continued to follow the patient with you while he remains hospitalized and make further recommendations during his hospital course. Thank you for allowing me to participate in the care this patient. History of Present Illness Reason for Consult Consult date: 03/04/23 Reason for consult: end stage renal disease Chief Complaint Chief complaint: emphysematous cystitis,esrd on hemodialysis History of Present Illness Narrative: The patient is a 73-year-old male with a past medical history as outlined below who presented to [facility] Emergency room with complaints of right lower back pain. The patient reports that he has been having right lower back pain that extends down to his buttocks and right posterior leg on and off for the last two weeks. He reports worsening of symptoms whenever he stands up in the morning as as well as with walking in general. He reports no recent falls or injuries and does state that the pain is mildly improved if he takes ibuprofen. No other reported subjective symptoms with regard to fevers, chills, nausea, vomiting, dizziness, or lightheadedness. Given the persistence of the symptoms as well as the worsening symptoms more recently, he presented to the emergency room for further assessment. Workup and evaluation in the emergency room demonstrated the patient to be hemodynamically stable and in no acute distress other than his mild pain issues. Routine blood test demonstrated labs consistent with his known history of end-stage renal disease with his CBC being unremarkable. His urinalysis was highly suggestive of a urinary tract infection with 3+ leukocyte esterase and greater than 100 red blood cells with 4+ bacteria. Imaging in the form of a CT scan of the Enalapril abdomen and pelvis demonstrated air in the urinary bladder with no evidence a fistula. After appropriate cultures were obtained, a Huizar catheter was placed and he was started on broad-spectrum IV antibiotic therapy. Urology was consulted from the ER given the imaging findings as mentioned. He was subsequently admitted to the hospital for further evaluation and therapy. Renal consultation was requested due to his end-stage renal disease. The patient normally dialyzes on a Tuesday, Tuesday, Tuesday dialysis schedule on care of Dr. Wesley Santiago at [facility]
--- NOTE | 2023-03-04 12:30 | P.PNIM_ITS ---
Progress Note: A&P Assessment and Plan (1) Urinary tract infection: Qualifiers: Hematuria presence: without hematuria Urinary tract infection type: acute cystitis Qualified Code(s): N30.00 - Acute cystitis without hematuria Code(s): N39.0 - Urinary tract infection, site not specified Status: Acute Assessment and Plan: * UA appeared infectious * Continue Rocephin for now * Blood and urine cultures are pending. * Abdominal pelvis CT was read as Air in the urinary bladder. Correlate for iatrogenic air versus any possibility of infectious process. No distinct evidence to suggest fistula, but this would be an alternative consideration as well. * Tailor antibiotics according to cultures and sensitivities * Check lactic. * Urology has been consulted (2) DM2 (diabetes mellitus, type 2): Code(s): E11.9 - Type 2 diabetes mellitus without complications Status: Acute Assessment and Plan: * Glucose 126 * Accu-Cheks AC and HS * sliding scale insulin * A1c 6.9 * Diabetes education * Hypoglycemic protocol * trend glucose * adjust therapy as indicated (3) Atrial fibrillation: Code(s): I48.91 - Unspecified atrial fibrillation Status: Acute Assessment and Plan: * Currently in normal sinus rhythm * Continue with amiodarone, Coreg, and Coumadin * PT 20.0 INR 1.8 * Continue to trend labs * Adjust therapy as indicated (4) Obstructive sleep apnea: Code(s): G47.33 - Obstructive sleep apnea (adult) (pediatric) Status: Acute Assessment and Plan: * Continue with home settings for BiPAP/CPAP (5) BPH (benign prostatic hyperplasia): Code(s): N40.0 - Benign prostatic hyperplasia without lower urinary tract symptoms Status: Acute Assessment and Plan: * Continue with Flomax and Proscar * Trend urine output * adjust therapy as indicated (6) Acute right-sided low back pain with right-sided sciatica: Code(s): M54.41 - Lumbago with sciatica, right side Status: Acute Assessment and Plan: * Tylenol, mirapex * Add tizanidine * Trend pain levels * add norco for further pain control (7) HLD (hyperlipidemia): Code(s): E78.5 - Hyperlipidemia, unspecified Status: Acute Assessment and Plan: * Continue with Lipitor (8) ESRD (end stage renal disease) on dialysis: Code(s): N18.6 - End stage renal disease; Z99.2 - Dependence on renal dialysis Status: Acute Assessment and Plan: * Nephrology has been consulted. * Dialysis is on Tuesday. * Continue to trend labs * BUN/Cr 46/6.40 * nephrology on board and to manage (9) HTN (hypertension): Code(s): I10 - Essential (primary) hypertension Status: Acute Assessment and Plan: * BP 97/48 * Continue with Coreg, Pacerone, Demadex * Trend BP * Adjust therapy as indicated Time Spent With Patient Time: 48 minutes Time with patient: Greater than 35 minutes Subjective Date/time seen: 03/04/23 1230 Interval history: 03/04/231229 patient was in dialysis when I went to see him. He c
--- NOTE | 2023-03-04 12:30 | PM.IMPN ---
Progress Note: A&P Assessment and Plan (1) Urinary tract infection: Qualifiers: Hematuria presence: without hematuria Urinary tract infection type: acute cystitis Qualified Code(s): N30.00 - Acute cystitis without hematuria Code(s): N39.0 - Urinary tract infection, site not specified Status: Acute Assessment and Plan: UA appeared infectious Continue Rocephin for now Blood and urine cultures are pending. Abdominal pelvis CT was read as Air in the urinary bladder. Correlate for iatrogenic air versus any possibility of infectious process. No distinct evidence to suggest fistula, but this would be an alternative consideration as well. Tailor antibiotics according to cultures and sensitivities Check lactic. Urology has been consulted (2) DM2 (diabetes mellitus, type 2): Code(s): E11.9 - Type 2 diabetes mellitus without complications Status: Acute Assessment and Plan: Glucose 126 Accu-Cheks AC and HS sliding scale insulin A1c 6.9 Diabetes education Hypoglycemic protocol trend glucose adjust therapy as indicated (3) Atrial fibrillation: Code(s): I48.91 - Unspecified atrial fibrillation Status: Acute Assessment and Plan: Currently in normal sinus rhythm Continue with amiodarone, Coreg, and Coumadin PT 20.0 INR 1.8 Continue to trend labs Adjust therapy as indicated (4) Obstructive sleep apnea: Code(s): G47.33 - Obstructive sleep apnea (adult) (pediatric) Status: Acute Assessment and Plan: Continue with home settings for BiPAP/CPAP (5) BPH (benign prostatic hyperplasia): Code(s): N40.0 - Benign prostatic hyperplasia without lower urinary tract symptoms Status: Acute Assessment and Plan: Continue with Flomax and Proscar Trend urine output adjust therapy as indicated (6) Acute right-sided low back pain with right-sided sciatica: Code(s): M54.41 - Lumbago with sciatica, right side Status: Acute Assessment and Plan: Tylenol, mirapex Add tizanidine Trend pain levels add norco for further pain control (7) HLD (hyperlipidemia): Code(s): E78.5 - Hyperlipidemia, unspecified Status: Acute Assessment and Plan: Continue with Lipitor (8) ESRD (end stage renal disease) on dialysis: Code(s): N18.6 - End stage renal disease; Z99.2 - Dependence on renal dialysis Status: Acute Assessment and Plan: Nephrology has been consulted. Dialysis is on Tuesday. Continue to trend labs BUN/Cr 46/6.40 nephrology on board and to manage (9) HTN (hypertension): Code(s): I10 - Essential (primary) hypertension Status: Acute Assessment and Plan: BP 97/48 Continue with Coreg, Pacerone, Demadex Trend BP Adjust therapy as indicated Time Spent With Patient Time: 48 minutes Time with patient: Greater than 35 minutes Subjective Date/time seen: 03/04/23 1230 Interval history: 03/04/231229 patient was in dialysis when I went to see him. He currently denies any current chest pain, shortness a breath, nausea, vomiting, diarrhea constipation. He is more focused on his sciatica pain which starts in his left buttocks and goes down his leg. He stated that he has not got much relief from it. Currently he is doing okay. Will at some further medications for better control. 03/03/23? 21:22 This is a 73-year-old male patient who has end-stage renal disease he has dialysis on Tuesday.? The patient stated they came to the emergency room for complaint of right lower back pain.? He has been intermittent to his right lower back and extending down to his buttocks and posterior leg for the past 2 weeks.? It is worse when he stands up and in the mornings of while wal
[2023-03-04] MEDS: ALBUMIN HUMAN 25% 12.5 GM/50ML 50 ML IVPB (13:19)
[2023-03-04 14:33] LABS: Glucose Point of Care 100 mg/dl (65-105)
[2023-03-04] MEDS: TIZANIDINE HCL 2 MG TABLET PO ×2 (15:59→21:33)
[2023-03-04 16:58] LABS: Glucose Point of Care 160 mg/dl (65-105)
[2023-03-04 21:26] LABS: Glucose Point of Care 186 mg/dl (65-105)
[2023-03-05] VITALS (7 sets, daily range): BP systolic 137–142; BP diastolic 62–69; PULSE 65–72; RESP 14–20; TEMP 36.1–36.8; O2SAT 94–98
[2023-03-05] MEDS: TIZANIDINE HCL 2 MG TABLET PO ×3 (04:35→18:28)
[2023-03-05 06:49] LABS: Basophils Absolute Auto 0.1 K/mm3 (0.0-0.1); Basophils Percent Auto 0.9 % (0.2-1.2); Eosinophils Absolute Auto 0.2 K/mm3 (0-0.3); Eosinophils Percent Auto 3.7 % (0-4.4); Hematocrit 29.9 % (42.0-52.0); Hemoglobin 9.7 g/dL (14.0-18.0); Immature Granulocyte Absolute 0.03 K/mm3 (0.00-0.031); Immature Granulocyte Percent A 0.5 % (0-0.5); Lymphocytes Absolute Auto 1.13 K/mm3 (0.9-3.2); Lymphocytes Percent Auto 17.4 % (18.3-44.2); Mean Corpuscular HGB Conc 32.4 g/dl (32-36); Mean Corpuscular Hemoglobin 33.6 pg (26-34); Mean Corpuscular Volume 103.5 fl (80-100); Mean Platelet Volume 9.2 fl (7.4-10.4); Monocytes Absolute Auto 0.6 K/mm3 (0.1-0.6); Monocytes Percent Auto 9.9 % (2.6-8.5); Neutrophils Absolute Auto 4.4 K/mm3 (1.3-6.7); Neutrophils Percent Auto 67.6 % (45.5-73.1); Platelet Count Result 114 k/mm3 (150-375); Red Blood Count 2.89 M/mm3 (4.6-6.20); Red Cell Distribution Width 14.9 % (11.5-14.5); White Blood Count 6.5 K/mm3 (4.5-10.0)
[2023-03-05 07:08] LABS: Prothrombin Time 21.6 Seconds (11.1-14.7)
[2023-03-05 08:38] LABS: Glucose Point of Care 130 mg/dl (65-105)
[2023-03-05 08:40] LABS: Alanine Aminotransferase 19 U/L (6-50); Albumin Level 3.7 g/dL (3.5-5.1); Alkaline Phosphatase 64 U/L (38-126); Anion Gap 6 mmol/L (8-16); Aspartate Amino Transferase 20 U/L (17-59); Bilirubin,Total 0.6 mg/dL (0.2-1.3); Blood Urea Nitrogen 31 mg/dL (9-20); Calcium 8.2 mg/dL (8.4-10.2); Carbon Dioxide 34 mmol/L (22-30); Chloride 99 mmol/L (98-107); Estimated CRCL calculation 15 ml/min; Estimated Glomerular Filt Rate 12; Glucose 133 mg/dL (65-110); Magnesium 2.1 mg/dL (1.6-2.3); Potassium 4.6 mmol/L (3.4-5.0); Sodium 139 mmol/L (137-145)
[2023-03-05] MEDS: INSULIN GLARGINE (*BKC) 100 UNITS/ML 12 UNITS SUB-Q (09:20)
[2023-03-05] MEDS: TORSEMIDE 20 MG TABLET 40 MG PO (09:23)
[2023-03-05] MEDS: CITALOPRAM HYDROBROMIDE 20 MG TABLET PO (09:24)
[2023-03-05] MEDS: SEVELAMER CARBONATE 800 MG TABLET PO ×3 (09:24→18:28)
[2023-03-05] MEDS: PRAMIPEXOLE 0.5 MG TABLET PO ×2 (09:24→18:28)
[2023-03-05] MEDS: carvediloL 25 MG TABLET PO ×2 (09:24→20:03)
--- NOTE | 2023-03-05 10:00 | PM.IMPN ---
Progress Note: A&P Assessment and Plan (1) Urinary tract infection: Qualifiers: Hematuria presence: without hematuria Urinary tract infection type: acute cystitis Qualified Code(s): N30.00 - Acute cystitis without hematuria Code(s): N39.0 - Urinary tract infection, site not specified Status: Acute Assessment and Plan: UA appeared infectious Continue Rocephin Blood culture no growth to date urine cultures grew ecoli Abdominal pelvis CT was read as Air in the urinary bladder. Correlate for iatrogenic air versus any possibility of infectious process. No distinct evidence to suggest fistula, but this would be an alternative consideration as well. Tailor antibiotics according to cultures and sensitivities Lactic acid 0.6 Urology has been consulted for air noted in the bladder Urology wants her to be treated for UTI (2) DM2 (diabetes mellitus, type 2): Code(s): E11.9 - Type 2 diabetes mellitus without complications Status: Acute Assessment and Plan: Glucose 133 Accu-Cheks AC and HS sliding scale insulin A1c 6.9 Diabetes education Hypoglycemic protocol trend glucose adjust therapy as indicated (3) Atrial fibrillation: Code(s): I48.91 - Unspecified atrial fibrillation Status: Chronic Assessment and Plan: Currently in normal sinus rhythm Continue with amiodarone, Coreg, and Coumadin PT 20.0 INR 1.8 Continue to trend labs Adjust therapy as indicated (4) Obstructive sleep apnea: Code(s): G47.33 - Obstructive sleep apnea (adult) (pediatric) Status: Acute Assessment and Plan: Continue with home settings for BiPAP/CPAP (5) BPH (benign prostatic hyperplasia): Code(s): N40.0 - Benign prostatic hyperplasia without lower urinary tract symptoms Status: Acute Assessment and Plan: Continue with Flomax and Proscar Trend urine output adjust therapy as indicated (6) Acute right-sided low back pain with right-sided sciatica: Code(s): M54.41 - Lumbago with sciatica, right side Status: Acute Assessment and Plan: Tylenol, mirapex Add tizanidine Trend pain levels add norco for further pain control Added gabapentin as well for neuropathic pain (7) HLD (hyperlipidemia): Code(s): E78.5 - Hyperlipidemia, unspecified Status: Acute Assessment and Plan: Continue with Lipitor (8) ESRD (end stage renal disease) on dialysis: Code(s): N18.6 - End stage renal disease; Z99.2 - Dependence on renal dialysis Status: Acute Assessment and Plan: Nephrology has been consulted. Dialysis is on Tuesday. Continue to trend labs BUN/Cr currently at 31/4.70 nephrology on board and to manage (9) HTN (hypertension): Code(s): I10 - Essential (primary) hypertension Status: Chronic Assessment and Plan: BP 137/62 Continue with Coreg, Pacerone, Demadex Trend BP Adjust therapy as indicated Time Spent With Patient Time: 51 minutes Time with patient: Greater than 35 minutes Subjective Date/time seen: 03/05/23 1000 Interval history: 03/05/23 1000 Patient stated that he is still having that sharp stabbing pain in his Right gluteal area that travels down his right leg. he did state that usually when he gets UTI he does feel in his groin area and has the same kind of pain. He also has some back pain. He denies any chest pain, shortness a breath, nausea, vomiting, diarrhea constipation. He is more worried that all of this is going to cause him not to get the kidney that he has been waiting for he also stated that he is still having some weakness. Cultures did grow E coli. Will start the patient on gabapentin for further comfort and support. 03/04/23 1230 patient was in
--- NOTE | 2023-03-05 10:00 | P.PNIM_ITS ---
Progress Note: A&P Assessment and Plan (1) Urinary tract infection: Qualifiers: Hematuria presence: without hematuria Urinary tract infection type: acute cystitis Qualified Code(s): N30.00 - Acute cystitis without hematuria Code(s): N39.0 - Urinary tract infection, site not specified Status: Acute Assessment and Plan: * UA appeared infectious * Continue Rocephin * Blood culture no growth to date * urine cultures grew ecoli * Abdominal pelvis CT was read as Air in the urinary bladder. Correlate for iatrogenic air versus any possibility of infectious process. No distinct evidence to suggest fistula, but this would be an alternative consideration as well. * Tailor antibiotics according to cultures and sensitivities * Lactic acid 0.6 * Urology has been consulted for air noted in the bladder * Urology wants her to be treated for UTI (2) DM2 (diabetes mellitus, type 2): Code(s): E11.9 - Type 2 diabetes mellitus without complications Status: Acute Assessment and Plan: * Glucose 133 * Accu-Cheks AC and HS * sliding scale insulin * A1c 6.9 * Diabetes education * Hypoglycemic protocol * trend glucose * adjust therapy as indicated (3) Atrial fibrillation: Code(s): I48.91 - Unspecified atrial fibrillation Status: Chronic Assessment and Plan: * Currently in normal sinus rhythm * Continue with amiodarone, Coreg, and Coumadin * PT 20.0 INR 1.8 * Continue to trend labs * Adjust therapy as indicated (4) Obstructive sleep apnea: Code(s): G47.33 - Obstructive sleep apnea (adult) (pediatric) Status: Acute Assessment and Plan: * Continue with home settings for BiPAP/CPAP (5) BPH (benign prostatic hyperplasia): Code(s): N40.0 - Benign prostatic hyperplasia without lower urinary tract symptoms Status: Acute Assessment and Plan: * Continue with Flomax and Proscar * Trend urine output * adjust therapy as indicated (6) Acute right-sided low back pain with right-sided sciatica: Code(s): M54.41 - Lumbago with sciatica, right side Status: Acute Assessment and Plan: * Tylenol, mirapex * Add tizanidine * Trend pain levels * add norco for further pain control * Added gabapentin as well for neuropathic pain (7) HLD (hyperlipidemia): Code(s): E78.5 - Hyperlipidemia, unspecified Status: Acute Assessment and Plan: * Continue with Lipitor (8) ESRD (end stage renal disease) on dialysis: Code(s): N18.6 - End stage renal disease; Z99.2 - Dependence on renal dialysis Status: Acute Assessment and Plan: * Nephrology has been consulted. * Dialysis is on Tuesday. * Continue to trend labs * BUN/Cr currently at 31/4.70 * nephrology on board and to manage (9) HTN (hypertension): Code(s): I10 - Essential (primary) hypertension Status: Chronic Assessment and Plan: * BP 137/62 * Continue with Coreg, Pacerone, Demadex * Trend BP * Adjust therapy as indicated Time Spent With Patient Time: 51 minutes Time with patient: Greater than 35 minutes
--- NOTE | 2023-03-05 10:35 | PM.PNNEP ---
Progress Note: A&P Assessment and Plan (1) End stage renal disease: Code(s): N18.6 - End stage renal disease Status: Chronic Assessment and Plan: HD due on Tuesday. continue M/W/ dialysis schedule while hospitalized Volume status looks okay. Electrolytes are good. (2) Urinary tract infection: Qualifiers: Hematuria presence: without hematuria Urinary tract infection type: acute cystitis Qualified Code(s): N30.00 - Acute cystitis without hematuria Code(s): N39.0 - Urinary tract infection, site not specified Status: Acute Assessment and Plan: as evidened by admission UA complicated by air in bladder as noted by imaging Urology recommendations noted Urine grew E coli. Sensitivities pending. on Ceftriaxone (3) HTN (hypertension): Code(s): I10 - Essential (primary) hypertension Status: Chronic Assessment and Plan: reasonable control at this time blood pressure ranging from 88-137. The 88 was at the end of his dialysis yesterday. Most blood pressures are in a reasonable range (4) Acute right-sided low back pain with right-sided sciatica: Code(s): M54.41 - Lumbago with sciatica, right side Status: Acute Assessment and Plan: pain control PT/OT as tolerated (5) Atrial fibrillation: Code(s): I48.91 - Unspecified atrial fibrillation Status: Chronic Assessment and Plan: continue rate control strategy INR 2.0 today (6) DM2 (diabetes mellitus, type 2): Code(s): E11.9 - Type 2 diabetes mellitus without complications Status: Acute Assessment and Plan: follow accuchecks glycemic control per hospitalists Subjective Date/time seen: 03/05/23 10:35 Interval history: patient feels okay except for his back pain. It starts in the right superior aspect of his buttock and radiates down the right leg. No shortness of breath or chest pain. Eating okay. He do well on dialysis yesterday. He is due for his next treatment on Tuesday Review of Systems Cardiovascular: Cardiovascular: Reports no additional cardiovascular complaints Respiratory: Respiratory: Reports no additional respiratory complaints Gastrointestinal: Gastrointestinal: Reports no additional gastrointestinal complaints Genitourinary: Genitourinary: Reports no additional male genitourinary complaints Exam Narrative: WDWN in NAD skin no rash head ncat lungs clear cor reg no rub abd BS+ nontender and soft ext no edema. Objective Data Vital Signs Vital Signs: Vital Signs - 24 hr 03/04/23 11:13 03/04/23 11:23 03/04/23 11:40 Temperature 97.9 F Pulse Rate 64 64 88 Respiratory Rate 14 Blood Pressure 124/69 110/66 100/64 Pulse Oximetry Oxygen Delivery 03/04/23 12:00 03/04/23 12:20 03/04/23 12:40 Temperature Pulse Rate 62 63 59 L Respiratory Rate Blood Pressure 124/60 87/56 L 88/52 L Pulse Oximetry Oxygen Delivery 03/04/23 13:00 03/04/23 13:20 03/04/23 14:00 Temperature Pulse Rate 61 63 74 Respiratory Rate Blood Pressure 97/48 L 110/60 147/58 H Pulse Oximetry Oxygen Delivery 03/04/23 13:40 03/04/23 14:20 03/04/23 14:40 Temperature Pulse Rate 80 78 92 Respiratory Rate Blood Pressure 122/99 H 122/75 141/97 H Pulse Oximetry Oxygen Delivery 03/04/23 15:02 03/04/23 15:42 03/04/23 14:00 Temperature 97.2 F L 97.6 F Pulse Rate 93 68 52 L Respiratory Rate 16 20 Blood Pressure 157/92 H 88/67 L 124/55 L Pulse Oximetry 95 Oxygen Delivery 03/04/23 21:45 03/04/23 21:45 03/04/23 20:00 Temperature 98.9 F Pulse Rate 51 L 48 L 48 L Respiratory Rate 16 16 Blood Pressure 105/57 L Pulse Oximetry 99 99 Oxygen Delivery Room Air 03/05/23 05:22 03/05/23 09:24 Temperature 98.3 F Pulse Rate 71 72 Respiratory Rate 14 Blood Pressure 137/62 Pulse Oximetry 98 Oxygen Delivery Intake/Output
[2023-03-05 12:06] LABS: Glucose Point of Care 152 mg/dl (65-105)
--- NOTE | 2023-03-05 12:26 | WPDUROPN2 ---
Progress Note: A&P Assessment and Plan (1) End stage renal disease: Code(s): N18.6 - End stage renal disease Status: Chronic Assessment and Plan: Per Nephrology (2) Urinary tract infection: Qualifiers: Hematuria presence: without hematuria Urinary tract infection type: acute cystitis Qualified Code(s): N30.00 - Acute cystitis without hematuria Code(s): N39.0 - Urinary tract infection, site not specified Status: Acute Assessment and Plan: DC Huizar, trial of void. Patient reports he voids 3-4x/day. Antibiotics per primary service preference, recommend 10 day course Follow up in office for cystoscopy. Subjective Subjective Date/Time Seen: 03/05/23 12:26 ELIZ, reports sciatica. He is excited for Huizar removal. Exam Narrative: Shawna WELLINGTON&Ox3 RRR eWOB S/NT/ND Huizar in place and draining clear yellow-tinged urine. Objective Data Vital Signs Vital Signs: Vital Signs - 24 hr 03/04/23 12:40 03/04/23 13:00 03/04/23 13:20 Temperature Pulse Rate 59 L 61 63 Respiratory Rate Blood Pressure 88/52 L 97/48 L 110/60 Pulse Oximetry Oxygen Delivery 03/04/23 14:00 03/04/23 13:40 03/04/23 14:20 Temperature Pulse Rate 74 80 78 Respiratory Rate Blood Pressure 147/58 H 122/99 H 122/75 Pulse Oximetry Oxygen Delivery 03/04/23 14:40 03/04/23 15:02 03/04/23 15:42 Temperature 97.2 F L Pulse Rate 92 93 68 Respiratory Rate 16 Blood Pressure 141/97 H 157/92 H 88/67 L Pulse Oximetry Oxygen Delivery 03/04/23 14:00 03/04/23 21:45 03/04/23 21:45 Temperature 97.6 F 98.9 F Pulse Rate 52 L 51 L 48 L Respiratory Rate 20 16 Blood Pressure 124/55 L 105/57 L Pulse Oximetry 95 99 Oxygen Delivery 03/04/23 20:00 03/05/23 05:22 03/05/23 09:24 Temperature 98.3 F Pulse Rate 48 L 71 72 Respiratory Rate 16 14 Blood Pressure 137/62 Pulse Oximetry 99 98 Oxygen Delivery Room Air Intake/Output Intake/Output: Intake & Output 03/02/23 03/03/23 03/04/23 03/05/23 23:59 23:59 23:59 23:59 Intake Total 550 470 440 Output Total 1066 50 Balance 550 -596 390 Meds/Results Medications: Active Medications Generic Name Dose Route Start Last Admin Trade Name Freq PRN Reason Stop Dose Admin Hydrocodone Bitart/Acetaminophen 1 tab 03/04/23 13:26 Hydrocodone/Acetaminophen (*Crx) 5-325 Mg Tablet PO Q4H PRN Pain Rated 4-10 Amiodarone HCl 200 mg 03/04/23 21:00 03/04/23 21:34 Amiodarone Hcl 200 Mg Tablet PO Not Given HS AURELIO Atorvastatin Calcium 40 mg 03/03/23 23:40 03/04/23 21:35 Atorvastatin 40 Mg Tablet PO 40 mg HS AURELIO Administration Carvedilol 25 mg 03/03/23 23:40 03/05/23 09:24 Carvedilol 25 Mg Tablet PO 25 mg Q12HR AURELIO Administration Citalopram Hydrobromide 20 mg 03/04/23 09:00 03/05/23 09:24 Citalopram Hydrobromide 20 Mg Tablet PO 20 mg DAILY AURELIO Administration Dextrose 12.5 gm 03/03/23 23:41 Dextrose 50% 25 Gm/50 Ml Syringe IV PUSH PRN PRN Hypoglycemia Protocol Finasteride 5 mg 03/03/23 23:40 03/04/23 21:35 Finasteride 5 Mg Tablet PO 5 mg HS AURELIO Administration Gabapentin 100 mg 03/05/23 13:00 Gabapentin 100 Mg Capsule PO TID AURELIO Glucagon 1 mg 03/03/23 23:41 Glucagon For Inj 1 Mg Vial IM PRN PRN Hypoglycemia Protocol Glucose 15 gm 03/03/23 23:41 Glucose Oral Gel 15 Gm Of Glucse In 37.5 Gm Tube PO PRN PRN Hypoglycemia Protocol Dextrose 1,000 mls @ 100 mls/hr 03/03/23 23:41 Dextrose 5% 1,000 Ml IVPB PRN PRN Hypoglycemia Protocol Ceftriaxone Sodium 1 gm in 50 mls @ 100 mls/hr 03/04/23 17:00 03/04/23 16:58 Rocephin 1 Gm/Ns 50 Ml IVPB Infused Q24H AURELIO Infusion Insulin Aspart 2 - 5 units 03/04/23 08:00 04/21/23 16:57 Insulin Aspart (*Bkc) 100 Units/Ml SUB-Q Not Given TIDWM [facility] Protocol Insulin Glargine 12 units 03/05
[2023-03-05] MEDS: GABAPENTIN 100 MG CAPSULE PO ×2 (13:29→18:28)
[2023-03-05 16:32] LABS: Glucose Point of Care 119 mg/dl (65-105)
[2023-03-05] MEDS: WARFARIN (*PBKC) 5 MG TABLET PO (18:28)
[2023-03-05] MEDS: AMIODARONE HCL 200 MG TABLET PO (19:59)
[2023-03-05] MEDS: FINASTERIDE 5 MG TABLET PO (19:59)
[2023-03-05] MEDS: HYDROcodone/acetaminophen (*CRX) 5-325 MG TABLET 1 TAB PO (20:01)
[2023-03-05] MEDS: ATORVASTATIN 40 MG TABLET PO (20:03)
[2023-03-05] MEDS: TAMSULOSIN HCL 0.4 MG CAPSULE PO (20:03)
[2023-03-05 20:18] LABS: Glucose Point of Care 157 mg/dl (65-105)
[2023-03-06] VITALS (7 sets, daily range): BP systolic 105–119; BP diastolic 55–63; PULSE 54–72; RESP 14–20; TEMP 35.9–37.1; O2SAT 93–98
[2023-03-06 06:13] LABS: Basophils Percent Auto 0.8 % (0.2-1.2); Eosinophils Absolute Auto 0.3 K/mm3 (0-0.3); Eosinophils Percent Auto 5.5 % (0-4.4); Hematocrit 30.1 % (42.0-52.0); Hemoglobin 9.6 g/dL (14.0-18.0); Immature Granulocyte Absolute 0.01 K/mm3 (0.00-0.031); Immature Granulocyte Percent A 0.2 % (0-0.5); Lymphocytes Absolute Auto 1.42 K/mm3 (0.9-3.2); Lymphocytes Percent Auto 28.7 % (18.3-44.2); Mean Corpuscular HGB Conc 31.9 g/dl (32-36); Mean Corpuscular Hemoglobin 33.3 pg (26-34); Mean Corpuscular Volume 104.5 fl (80-100); Mean Platelet Volume 9.7 fl (7.4-10.4); Monocytes Absolute Auto 0.6 K/mm3 (0.1-0.6); Monocytes Percent Auto 11.1 % (2.6-8.5); Neutrophils Absolute Auto 2.7 K/mm3 (1.3-6.7); Neutrophils Percent Auto 53.7 % (45.5-73.1); Platelet Count Result 120 k/mm3 (150-375); Red Blood Count 2.88 M/mm3 (4.6-6.20); Red Cell Distribution Width 14.9 % (11.5-14.5)
[2023-03-06 06:23] LABS: INR 2.1; Prothrombin Time 22.7 Seconds (11.1-14.7)
[2023-03-06 06:35] LABS: Alanine Aminotransferase 18 U/L (6-50); Albumin Level 3.9 g/dL (3.5-5.1); Alkaline Phosphatase 65 U/L (38-126); Anion Gap 10 mmol/L (8-16); Aspartate Amino Transferase 20 U/L (17-59); Bilirubin,Total 0.5 mg/dL (0.2-1.3); Blood Urea Nitrogen 47 mg/dL (9-20); Calcium 8.1 mg/dL (8.4-10.2); Carbon Dioxide 30 mmol/L (22-30); Chloride 99 mmol/L (98-107); Estimated CRCL calculation 13 ml/min; Estimated Glomerular Filt Rate 9; Glucose 100 mg/dL (65-110); Magnesium 2.3 mg/dL (1.6-2.3); Potassium 4.1 mmol/L (3.4-5.0); Sodium 139 mmol/L (137-145)
[2023-03-06 07:54] LABS: Glucose Point of Care 97 mg/dl (65-105)
[2023-03-06] MEDS: CITALOPRAM HYDROBROMIDE 20 MG TABLET PO (08:24)
[2023-03-06] MEDS: carvediloL 25 MG TABLET PO ×2 (08:24→21:30)
[2023-03-06] MEDS: GABAPENTIN 100 MG CAPSULE PO (08:24)
[2023-03-06] MEDS: PRAMIPEXOLE 0.5 MG TABLET PO ×2 (08:25→16:45)
[2023-03-06] MEDS: TORSEMIDE 20 MG TABLET 40 MG PO (08:25)
[2023-03-06] MEDS: HYDROcodone/acetaminophen (*CRX) 5-325 MG TABLET 1 TAB PO ×3 (08:25→21:32)
[2023-03-06] MEDS: SEVELAMER CARBONATE 800 MG TABLET PO ×3 (08:25→16:45)
--- NOTE | 2023-03-06 09:45 | P.PNIM_ITS ---
Progress Note: A&P Assessment and Plan (1) Urinary tract infection: Qualifiers: Hematuria presence: without hematuria Urinary tract infection type: acute cystitis Qualified Code(s): N30.00 - Acute cystitis without hematuria Code(s): N39.0 - Urinary tract infection, site not specified Status: Acute Assessment and Plan: * UA appeared infectious * Continue Rocephin * Blood culture no growth to date * urine cultures grew ecoli * Abdominal pelvis CT was read as Air in the urinary bladder. Correlate for iatrogenic air versus any possibility of infectious process. No distinct evidence to suggest fistula, but this would be an alternative consideration as well. * Tailor antibiotics according to cultures and sensitivities * Lactic acid 0.6 * Urology has been consulted for air noted in the bladder * Urology wants her to be treated for UTI (2) DM2 (diabetes mellitus, type 2): Code(s): E11.9 - Type 2 diabetes mellitus without complications Status: Acute Assessment and Plan: * Glucose 100 * Accu-Cheks AC and HS * sliding scale insulin * A1c 6.9 * Diabetes education * Hypoglycemic protocol * trend glucose * adjust therapy as indicated (3) Atrial fibrillation: Code(s): I48.91 - Unspecified atrial fibrillation Status: Chronic Assessment and Plan: * Currently in normal sinus rhythm * Continue with amiodarone, Coreg, and Coumadin * PT 20.0 INR 1.8 * Continue to trend labs * Adjust therapy as indicated (4) Obstructive sleep apnea: Code(s): G47.33 - Obstructive sleep apnea (adult) (pediatric) Status: Acute Assessment and Plan: * Continue with home settings for BiPAP/CPAP (5) BPH (benign prostatic hyperplasia): Code(s): N40.0 - Benign prostatic hyperplasia without lower urinary tract symptoms Status: Acute Assessment and Plan: * Continue with Flomax and Proscar * Trend urine output * adjust therapy as indicated (6) Acute right-sided low back pain with right-sided sciatica: Code(s): M54.41 - Lumbago with sciatica, right side Status: Acute Assessment and Plan: * Tylenol, mirapex * Continue tizanidine * Trend pain levels * continue norco for further pain control * continue gabapentin as well for neuropathic pain * hip pain still present * hip xray and lumbar spine ordered * encourage out of bed activities (7) HLD (hyperlipidemia): Code(s): E78.5 - Hyperlipidemia, unspecified Status: Acute Assessment and Plan: * Continue with Lipitor (8) ESRD (end stage renal disease) on dialysis: Code(s): N18.6 - End stage renal disease; Z99.2 - Dependence on renal dialysis Status: Acute Assessment and Plan: * Nephrology has been consulted. * Dialysis is on Tuesday. * Continue to trend labs * BUN/Cr currently at 47/6.10 * nephrology on board and to manage (9) HTN (hypertension): Code(s): I10 - Essential (primary) hypertension Status: Chronic Assessment and Plan: * BP 114/63 * Continue with Coreg, Pacerone, Demadex * Trend BP * Adjust therapy as indicated
--- NOTE | 2023-03-06 09:45 | PM.IMPN ---
Progress Note: A&P Assessment and Plan (1) Urinary tract infection: Qualifiers: Hematuria presence: without hematuria Urinary tract infection type: acute cystitis Qualified Code(s): N30.00 - Acute cystitis without hematuria Code(s): N39.0 - Urinary tract infection, site not specified Status: Acute Assessment and Plan: UA appeared infectious Continue Rocephin Blood culture no growth to date urine cultures grew ecoli Abdominal pelvis CT was read as Air in the urinary bladder. Correlate for iatrogenic air versus any possibility of infectious process. No distinct evidence to suggest fistula, but this would be an alternative consideration as well. Tailor antibiotics according to cultures and sensitivities Lactic acid 0.6 Urology has been consulted for air noted in the bladder Urology wants her to be treated for UTI (2) DM2 (diabetes mellitus, type 2): Code(s): E11.9 - Type 2 diabetes mellitus without complications Status: Acute Assessment and Plan: Glucose 100 Accu-Cheks AC and HS sliding scale insulin A1c 6.9 Diabetes education Hypoglycemic protocol trend glucose adjust therapy as indicated (3) Atrial fibrillation: Code(s): I48.91 - Unspecified atrial fibrillation Status: Chronic Assessment and Plan: Currently in normal sinus rhythm Continue with amiodarone, Coreg, and Coumadin PT 20.0 INR 1.8 Continue to trend labs Adjust therapy as indicated (4) Obstructive sleep apnea: Code(s): G47.33 - Obstructive sleep apnea (adult) (pediatric) Status: Acute Assessment and Plan: Continue with home settings for BiPAP/CPAP (5) BPH (benign prostatic hyperplasia): Code(s): N40.0 - Benign prostatic hyperplasia without lower urinary tract symptoms Status: Acute Assessment and Plan: Continue with Flomax and Proscar Trend urine output adjust therapy as indicated (6) Acute right-sided low back pain with right-sided sciatica: Code(s): M54.41 - Lumbago with sciatica, right side Status: Acute Assessment and Plan: Tylenol, mirapex Continue tizanidine Trend pain levels continue norco for further pain control continue gabapentin as well for neuropathic pain hip pain still present hip xray and lumbar spine ordered encourage out of bed activities (7) HLD (hyperlipidemia): Code(s): E78.5 - Hyperlipidemia, unspecified Status: Acute Assessment and Plan: Continue with Lipitor (8) ESRD (end stage renal disease) on dialysis: Code(s): N18.6 - End stage renal disease; Z99.2 - Dependence on renal dialysis Status: Acute Assessment and Plan: Nephrology has been consulted. Dialysis is on Tuesday. Continue to trend labs BUN/Cr currently at 47/6.10 nephrology on board and to manage (9) HTN (hypertension): Code(s): I10 - Essential (primary) hypertension Status: Chronic Assessment and Plan: BP 114/63 Continue with Coreg, Pacerone, Demadex Trend BP Adjust therapy as indicated Time Spent With Patient Time: 48 minutes Time with patient: Greater than 35 minutes Subjective Date/time seen: 03/06/23944 Interval history: 03/06/23944 patient is resting in bed. Patient states that he still having some pretty significant pain in the right gluteal area that goes down to his knee. He states that the pain is worse when he sits. Once again tried to massage the lower back area with no success of pain control. He denies any current chest pain, shortness a breath, nausea, vomiting, diarrhea constipation. Urine culture did grow E coli. Ordered heating pad and a CT. 03/05/23 1000 Patient stated that he is still having that sharp stabbing pain in his Right glut
--- NOTE | 2023-03-06 10:21 | P.PNNP_ITS ---
Progress Note: A&P Assessment and Plan (1) End stage renal disease: Code(s): N18.6 - End stage renal disease Status: Chronic Assessment and Plan: * HD due tomorrow * continue M/W/F dialysis schedule while hospitalized * Volume status looks okay. * Electrolytes are good. (2) Urinary tract infection: Qualifiers: Hematuria presence: without hematuria Urinary tract infection type: acute cystitis Qualified Code(s): N30.00 - Acute cystitis without hematuria Code(s): N39.0 - Urinary tract infection, site not specified Status: Acute Assessment and Plan: * as evidened by admission UA * complicated by air in bladder as noted by imaging * Urology recommendations noted * Urine grew E coli. * pansensitive. He is on Ceftriaxone (3) HTN (hypertension): Code(s): I10 - Essential (primary) hypertension Status: Chronic Assessment and Plan: * reasonable control at this time * blood pressure ranging from 88-137. The 88 was at the end of his dialysis yesterday. Most blood pressures are in a reasonable range (4) Acute right-sided low back pain with right-sided sciatica: Code(s): M54.41 - Lumbago with sciatica, right side Status: Acute Assessment and Plan: * pain control * PT/OT as tolerated (5) Atrial fibrillation: Code(s): I48.91 - Unspecified atrial fibrillation Status: Chronic Assessment and Plan: * continue rate control strategy * INR 2.1 today (6) DM2 (diabetes mellitus, type 2): Code(s): E11.9 - Type 2 diabetes mellitus without complications Status: Acute Assessment and Plan: * follow accuchecks * glycemic control per hospitalists Subjective Date/time seen: 03/06/23 10:21 Interval history: patient feels okay except for his back pain. It starts in the right superior aspect of his buttock and radiates down the right leg. he has had this before. Injections worked in the past. He went to [facility] for these. No shortness of breath or chest pain. Eating okay. He is due for dialysis tomorrow Exam Narrative: WDWN in NAD skin no rash head ncat lungs clear cor reg no rub abd BS+ nontender and soft ext no edema. Objective Data Vital Signs Vital Signs: Vital Signs - 24 hr 03/05/23 14:00 03/05/23 19:59 03/05/23 20:03 Temperature 97.0 F L Pulse Rate 65 67 67 Respiratory Rate 20 Blood Pressure 142/66 H Pulse Oximetry 98 Oxygen Delivery 03/05/23 22:00 03/05/23 23:17 03/06/23 01:54 Temperature 97.7 F Pulse Rate 67 67 72 Respiratory Rate 18 16 14 Blood Pressure 137/69 Pulse Oximetry 98 94 93 Oxygen Delivery Room Air Room Air 03/06/23 05:19 03/06/23 08:24 03/06/23 08:00 Temperature 98.8 F Pulse Rate 60 64 Respiratory Rate 16 Blood Pressure 114/63 Pulse Oximetry 94 Oxygen Delivery Room Air Intake/Output Intake/Output: Intake & Output 03/03/23 03/04/23 03/05/23 03/06/23 23:59 23:59 23:59 23:59 Intake Total 419 954 3974 500 Output Total 1066 450 0 Balance 550 -596 265 500 Meds/Results M
--- NOTE | 2023-03-06 10:21 | PM.PNNEP ---
Progress Note: A&P Assessment and Plan (1) End stage renal disease: Code(s): N18.6 - End stage renal disease Status: Chronic Assessment and Plan: HD due tomorrow continue M/W/F dialysis schedule while hospitalized Volume status looks okay. Electrolytes are good. (2) Urinary tract infection: Qualifiers: Hematuria presence: without hematuria Urinary tract infection type: acute cystitis Qualified Code(s): N30.00 - Acute cystitis without hematuria Code(s): N39.0 - Urinary tract infection, site not specified Status: Acute Assessment and Plan: as evidened by admission UA complicated by air in bladder as noted by imaging Urology recommendations noted Urine grew E coli. pansensitive. He is on Ceftriaxone (3) HTN (hypertension): Code(s): I10 - Essential (primary) hypertension Status: Chronic Assessment and Plan: reasonable control at this time blood pressure ranging from 88-137. The 88 was at the end of his dialysis yesterday. Most blood pressures are in a reasonable range (4) Acute right-sided low back pain with right-sided sciatica: Code(s): M54.41 - Lumbago with sciatica, right side Status: Acute Assessment and Plan: pain control PT/OT as tolerated (5) Atrial fibrillation: Code(s): I48.91 - Unspecified atrial fibrillation Status: Chronic Assessment and Plan: continue rate control strategy INR 2.1 today (6) DM2 (diabetes mellitus, type 2): Code(s): E11.9 - Type 2 diabetes mellitus without complications Status: Acute Assessment and Plan: follow accuchecks glycemic control per hospitalists Subjective Date/time seen: 03/06/23 10:21 Interval history: patient feels okay except for his back pain. It starts in the right superior aspect of his buttock and radiates down the right leg. he has had this before. Injections worked in the past. He went to [email or web address] for these. No shortness of breath or chest pain. Eating okay. He is due for dialysis tomorrow Exam Narrative: WDWN in NAD skin no rash head ncat lungs clear cor reg no rub abd BS+ nontender and soft ext no edema. Objective Data Vital Signs Vital Signs: Vital Signs - 24 hr 03/05/23 14:00 03/05/23 19:59 03/05/23 20:03 Temperature 97.0 F L Pulse Rate 65 67 67 Respiratory Rate 20 Blood Pressure 142/66 H Pulse Oximetry 98 Oxygen Delivery 03/05/23 22:00 03/05/23 23:17 03/06/23 01:54 Temperature 97.7 F Pulse Rate 67 67 72 Respiratory Rate 18 16 14 Blood Pressure 137/69 Pulse Oximetry 98 94 93 Oxygen Delivery Room Air Room Air 03/06/23 05:19 03/06/23 08:24 03/06/23 08:00 Temperature 98.8 F Pulse Rate 60 64 Respiratory Rate 16 Blood Pressure 114/63 Pulse Oximetry 94 Oxygen Delivery Room Air Intake/Output Intake/Output: Intake & Output 03/03/23 03/04/23 03/05/23 03/06/23 23:59 23:59 23:59 23:59 Intake Total 244 290 6551 500 Output Total 1066 450 0 Balance 550 -596 780 500 Meds/Results Medications: Active Medications Generic Name Dose Route Start Last Admin Trade Name Freq PRN Reason Stop Dose Admin Hydrocodone Bitart/Acetaminophen 1 tab 03/04/23 13:26 03/06/23 08:25 Hydrocodone/Acetaminophen (*Crx) 5-325 Mg Tablet PO 1 tab Q4H PRN Administration Pain Rated 4-10 Amiodarone HCl 200 mg 03/04/23 21:00 03/05/23 19:59 Amiodarone Hcl 200 Mg Tablet PO 200 mg HS AURELIO Administration Atorvastatin Calcium 40 mg 03/03/23 23:40 03/05/23 20:03 Atorvastatin 40 Mg Tablet PO 40 mg HS AURELIO Administration Carvedilol 25 mg 03/03/23 23:40 03/06/23 08:24 Carvedilol 25 Mg Tablet PO 25 mg Q12HR AURELIO Administration Citalopram Hydrobromide 20 mg 03/04/23 09:00 03/06/23 08:24 Citalopram Hydrobromide 20 Mg Tablet PO 20 mg DAILY AURELIO Administration Dextrose 12.5 gm 03/03/23 23:41
[2023-03-06 11:42] LABS: Glucose Point of Care 148 mg/dl (65-105)
[2023-03-06] MEDS: GABAPENTIN 100 MG CAPSULE 200 MG PO ×2 (12:14→16:45)
[2023-03-06] MEDS: INSULIN GLARGINE (*BKC) 100 UNITS/ML 12 UNITS SUB-Q (12:14)
[2023-03-06] MEDS: TIZANIDINE HCL 2 MG TABLET PO ×3 (12:15→21:32)
[2023-03-06] MEDS: WARFARIN (*PBKC) 5 MG TABLET PO (16:43)
[2023-03-06 16:51] LABS: Glucose Point of Care 138 mg/dl (65-105)
[2023-03-06 20:20] LABS: Glucose Point of Care 153 mg/dl (65-105)
[2023-03-06] MEDS: AMIODARONE HCL 200 MG TABLET PO (21:30)
[2023-03-06] MEDS: ATORVASTATIN 40 MG TABLET PO (21:30)
[2023-03-06] MEDS: FINASTERIDE 5 MG TABLET PO (21:30)
[2023-03-06] MEDS: TAMSULOSIN HCL 0.4 MG CAPSULE PO (21:30)
[2023-03-07] VITALS (17 sets, daily range): BP systolic 105–152; BP diastolic 51–103; PULSE 51–75; RESP 14–20; TEMP 35.8–37; O2SAT 94–98
[2023-03-07] MEDS: HYDROcodone/acetaminophen (*CRX) 5-325 MG TABLET 1 TAB PO (05:31)
[2023-03-07 06:24] LABS: Basophils Absolute Auto 0.1 K/mm3 (0.0-0.1); Basophils Percent Auto 1.2 % (0.2-1.2); Eosinophils Absolute Auto 0.3 K/mm3 (0-0.3); Eosinophils Percent Auto 5.8 % (0-4.4); Hematocrit 31.2 % (42.0-52.0); Hemoglobin 9.9 g/dL (14.0-18.0); Immature Granulocyte Absolute 0.02 K/mm3 (0.00-0.031); Immature Granulocyte Percent A 0.4 % (0-0.5); Lymphocytes Absolute Auto 1.33 K/mm3 (0.9-3.2); Lymphocytes Percent Auto 25.5 % (18.3-44.2); Mean Corpuscular HGB Conc 31.7 g/dl (32-36); Mean Corpuscular Hemoglobin 33.3 pg (26-34); Mean Corpuscular Volume 105.1 fl (80-100); Mean Platelet Volume 9.6 fl (7.4-10.4); Monocytes Absolute Auto 0.4 K/mm3 (0.1-0.6); Monocytes Percent Auto 8.3 % (2.6-8.5); Neutrophils Absolute Auto 3.1 K/mm3 (1.3-6.7); Neutrophils Percent Auto 58.8 % (45.5-73.1); Platelet Count Result 118 k/mm3 (150-375); Red Blood Count 2.97 M/mm3 (4.6-6.20); Red Cell Distribution Width 14.8 % (11.5-14.5); White Blood Count 5.2 K/mm3 (4.5-10.0)
[2023-03-07 06:27] LABS: INR 2.4; Prothrombin Time 25.6 Seconds (11.1-14.7)
[2023-03-07 06:34] LABS: Alanine Aminotransferase 18 U/L (6-50); Alkaline Phosphatase 62 U/L (38-126); Anion Gap 12 mmol/L (8-16); Aspartate Amino Transferase 18 U/L (17-59); Bilirubin,Total 0.5 mg/dL (0.2-1.3); Blood Urea Nitrogen 63 mg/dL (9-20); Calcium 8.1 mg/dL (8.4-10.2); Carbon Dioxide 26 mmol/L (22-30); Chloride 100 mmol/L (98-107); Estimated CRCL calculation 11 ml/min; Estimated Glomerular Filt Rate 7; Glucose 92 mg/dL (65-110); Magnesium 2.3 mg/dL (1.6-2.3); Phosphorus 8.5 mg/dL (2.5-4.5); Potassium 4.4 mmol/L (3.4-5.0); Sodium 138 mmol/L (137-145)
[2023-03-07 07:37] LABS: Glucose Point of Care 85 mg/dl (65-105)
--- NOTE | 2023-03-07 08:45 | PM.DS ---
DS: Admitting Diagnosis Discharge Date 03/07/23 0845 Admitting Diagnosis Acute UTI, degenerative disc and joint disease DS: Discharge Diagnosis Discharge Diagnosis (1) Urinary tract infection: Qualifiers: Hematuria presence: without hematuria Urinary tract infection type: acute cystitis Qualified Code(s): N30.00 - Acute cystitis without hematuria Code(s): N39.0 - Urinary tract infection, site not specified Status: Acute Assessment and Plan: UA appeared infectious Continue Rocephin Blood culture no growth to date urine cultures grew ecoli Abdominal pelvis CT was read as Air in the urinary bladder. Correlate for iatrogenic air versus any possibility of infectious process. No distinct evidence to suggest fistula, but this would be an alternative consideration as well. Tailor antibiotics according to cultures and sensitivities Lactic acid 0.6 Urology has been consulted for air noted in the bladder Urology wants her to be treated for UTI (2) DM2 (diabetes mellitus, type 2): Code(s): E11.9 - Type 2 diabetes mellitus without complications Status: Acute Assessment and Plan: Glucose 85 Accu-Cheks AC and HS sliding scale insulin A1c 6.9 Diabetes education Hypoglycemic protocol trend glucose adjust therapy as indicated (3) Atrial fibrillation: Code(s): I48.91 - Unspecified atrial fibrillation Status: Chronic Assessment and Plan: Currently in normal sinus rhythm Continue with amiodarone, Coreg, and Coumadin PT 20.0 INR 2.4 Continue to trend labs Adjust therapy as indicated (4) Obstructive sleep apnea: Code(s): G47.33 - Obstructive sleep apnea (adult) (pediatric) Status: Acute Assessment and Plan: Continue with home settings for BiPAP/CPAP (5) BPH (benign prostatic hyperplasia): Code(s): N40.0 - Benign prostatic hyperplasia without lower urinary tract symptoms Status: Acute Assessment and Plan: Continue with Flomax and Proscar Trend urine output adjust therapy as indicated (6) Acute right-sided low back pain with right-sided sciatica: Code(s): M54.41 - Lumbago with sciatica, right side Status: Acute Assessment and Plan: Tylenol, mirapex Continue tizanidine Trend pain levels continue norco for further pain control continue gabapentin as well for neuropathic pain hip pain still present hip xray shows severe osteoarthritis lumbar spine showed Severe lumbar spondylosis. encourage out of bed activities Start steroids (7) HLD (hyperlipidemia): Code(s): E78.5 - Hyperlipidemia, unspecified Status: Acute Assessment and Plan: Continue with Lipitor (8) ESRD (end stage renal disease) on dialysis: Code(s): N18.6 - End stage renal disease; Z99.2 - Dependence on renal dialysis Status: Acute Assessment and Plan: Nephrology has been consulted. Dialysis is on Tuesday. Continue to trend labs BUN/Cr currently at 63/7.40 nephrology on board and to manage (9) HTN (hypertension): Code(s): I10 - Essential (primary) hypertension Status: Chronic Assessment and Plan: BP 138/62 Continue with Coreg, Pacerone, Demadex Trend BP Adjust therapy as indicated DS: Summary Hospital Course Hospital Course: patient is a 73-year-old male with past medical history of end-stage renal disease on hemodialysis hypertension AFib who presented to the ED with complaints of right lower back pain. Patient patient stated that his back pain has been intermittent has been radiating down to his knee. It is mostly worse in the morning and when he gets up to sit up. CT of the lumbar spine along with hip x-ray was performed and showed severe osteoma arthritis and spondylolysis.
--- NOTE | 2023-03-07 08:45 | P.DS_ITS ---
DS: Admitting Diagnosis Discharge Date 03/07/23 0845 Admitting Diagnosis Acute UTI, degenerative disc and joint disease DS: Discharge Diagnosis Discharge Diagnosis (1) Urinary tract infection: Qualifiers: Hematuria presence: without hematuria Urinary tract infection type: acute cystitis Qualified Code(s): N30.00 - Acute cystitis without hematuria Code(s): N39.0 - Urinary tract infection, site not specified Status: Acute Assessment and Plan: * UA appeared infectious * Continue Rocephin * Blood culture no growth to date * urine cultures grew ecoli * Abdominal pelvis CT was read as Air in the urinary bladder. Correlate for iatrogenic air versus any possibility of infectious process. No distinct evidence to suggest fistula, but this would be an alternative consideration as well. * Tailor antibiotics according to cultures and sensitivities * Lactic acid 0.6 * Urology has been consulted for air noted in the bladder * Urology wants her to be treated for UTI (2) DM2 (diabetes mellitus, type 2): Code(s): E11.9 - Type 2 diabetes mellitus without complications Status: Acute Assessment and Plan: * Glucose 85 * Accu-Cheks AC and HS * sliding scale insulin * A1c 6.9 * Diabetes education * Hypoglycemic protocol * trend glucose * adjust therapy as indicated (3) Atrial fibrillation: Code(s): I48.91 - Unspecified atrial fibrillation Status: Chronic Assessment and Plan: * Currently in normal sinus rhythm * Continue with amiodarone, Coreg, and Coumadin * PT 20.0 INR 2.4 * Continue to trend labs * Adjust therapy as indicated (4) Obstructive sleep apnea: Code(s): G47.33 - Obstructive sleep apnea (adult) (pediatric) Status: Acute Assessment and Plan: * Continue with home settings for BiPAP/CPAP (5) BPH (benign prostatic hyperplasia): Code(s): N40.0 - Benign prostatic hyperplasia without lower urinary tract symptoms Status: Acute Assessment and Plan: * Continue with Flomax and Proscar * Trend urine output * adjust therapy as indicated (6) Acute right-sided low back pain with right-sided sciatica: Code(s): M54.41 - Lumbago with sciatica, right side Status: Acute Assessment and Plan: * Tylenol, mirapex * Continue tizanidine * Trend pain levels * continue norco for further pain control * continue gabapentin as well for neuropathic pain * hip pain still present * hip xray shows severe osteoarthritis * lumbar spine showed Severe lumbar spondylosis. * encourage out of bed activities * Start steroids (7) HLD (hyperlipidemia): Code(s): E78.5 - Hyperlipidemia, unspecified Status: Acute Assessment and Plan: * Continue with Lipitor (8) ESRD (end stage renal disease) on dialysis: Code(s): N18.6 - End stage renal disease; Z99.2 - Dependence on renal dialysis Status: Acute Assessment and Plan: * Nephrology has been consulted. * Dialysis is on Tuesday. * Continue to trend labs * BUN/Cr currently at 63/7.40 * nephrology on board and to manage (9) HTN (hypertension): Code(s): I10 - Essential (primary) hypertens
[2023-03-07] MEDS: methylPREDNISolone SOD SUCC 40 MG VIAL IV PUSH (09:35)
--- NOTE | 2023-03-07 10:07 | PM.PNNEP ---
Progress Note: A&P Assessment and Plan (1) End stage renal disease: Code(s): N18.6 - End stage renal disease Status: Chronic Assessment and Plan: HD today continue M/W/F dialysis schedule while hospitalized follow electrolytes, volume status, and clearance (2) Urinary tract infection: Qualifiers: Hematuria presence: without hematuria Urinary tract infection type: acute cystitis Qualified Code(s): N30.00 - Acute cystitis without hematuria Code(s): N39.0 - Urinary tract infection, site not specified Status: Acute Assessment and Plan: as evidened by admission UA complicated by air in bladder as noted by imaging Urology recommendations noted urine culture with E coli on antibiotics (3) HTN (hypertension): Code(s): I10 - Essential (primary) hypertension Status: Chronic Assessment and Plan: reasonable control at this time follow trend of hemodynamics (4) Acute right-sided low back pain with right-sided sciatica: Code(s): M54.41 - Lumbago with sciatica, right side Status: Acute Assessment and Plan: pain control PT/OT as tolerated (5) Atrial fibrillation: Code(s): I48.91 - Unspecified atrial fibrillation Status: Chronic Assessment and Plan: continue rate control strategy on coumadin - follow INR (6) DM2 (diabetes mellitus, type 2): Code(s): E11.9 - Type 2 diabetes mellitus without complications Status: Acute Assessment and Plan: follow accuchecks glycemic control per hospitalists Not opposed to discharge from renal perspective if otherwise medically stable. Will continue to follow. Subjective Date/time seen: 03/07/23 10:07 Chart reviewed since last seen -- tolerating dialysis treatment at the time of my visit (seen on HD at ~ 10:00AM); no apparent distress noted; no issues/events overnight or earlier this AM; still with some sciatic pain. Exam Narrative: General: elderly but WD/WN male in NAD Heart: normal S1 and S2; no rub Lungs: clear to auscultation Abdomen: soft, nontender, nondistended, positive bowel sounds Extremities: no cyanosis or clubbing; no edema Skin: warm and dry Objective Data Vital Signs Vital Signs: Vital Signs Temp Pulse Resp BP Pulse Ox O2 Del Method 03/07/23 08:00 Room Air 03/07/23 06:00 96.4 F L 54 L 20 138/62 98 03/07/23 04:31 75 14 94 Room Air 03/06/23 23:30 69 14 96 03/06/23 22:00 96.6 F L 57 L 20 119/55 L 98 03/06/23 21:30 57 L 03/06/23 21:30 57 L 03/06/23 14:00 98.0 F 54 L 16 105/63 96 Intake/Output Intake/Output: Intake & Output 03/04/23 03/05/23 03/06/23 03/07/23 23:59 23:59 23:59 23:59 Intake Total 470 1280 1110 220 Output Total 1066 450 290 400 Balance -596 830 820 -180 Meds/Results Medications: Active Medications Generic Name Dose Route Start Last Admin Trade Name Freq PRN Reason Stop Dose Admin Hydrocodone Bitart/Acetaminophen 1 tab 03/04/23 13:26 03/07/23 05:31 Hydrocodone/Acetaminophen (*Crx) 5-325 Mg Tablet PO 1 tab Q4H PRN Administration Pain Rated 4-10 Amiodarone HCl 200 mg 03/04/23 21:00 03/06/23 21:30 Amiodarone Hcl 200 Mg Tablet PO 200 mg HS AURELIO Administration Atorvastatin Calcium 40 mg 03/03/23 23:40 03/06/23 21:30 Atorvastatin 40 Mg Tablet PO 40 mg HS AURELIO Administration Carvedilol 25 mg 03/03/23 23:40 03/06/23 21:30 Carvedilol 25 Mg Tablet PO 25 mg Q12HR AURELIO Administration Citalopram Hydrobromide 20 mg 03/04/23 09:00 03/06/23 08:24 Citalopram Hydrobromide 20 Mg Tablet PO 20 mg DAILY AURELIO Administration Dextrose 12.5 gm 03/03/23 23:41 Dextrose 50% 25 Gm/50 Ml Syringe IV PUSH PRN PRN Hypoglycemia Protocol Epoetin Sunil-epbx 10,000 units 03/07/23 18:55 Epoetin Sunil-Epbx 10,000 Units/Ml Vial IV PUSH 03/07/23 18:56 ONCE ONE
[2023-03-07 11:42] LABS: Glucose Point of Care 81 mg/dl (65-105)
[2023-03-07] MEDS: EPOETIN ALFA-EPBX 10,000 UNITS/ML VIAL 10000 UNITS IV PUSH (12:18)
[2023-03-07] MEDS: SODIUM CHLORIDE 0.9% IV 1,000 ML 999 ML IV CONT (12:19)
[2023-03-07] MEDS: CITALOPRAM HYDROBROMIDE 20 MG TABLET PO (14:12)
[2023-03-07] MEDS: SEVELAMER CARBONATE 800 MG TABLET PO (14:12)
[2023-03-07] MEDS: TORSEMIDE 20 MG TABLET 40 MG PO (14:13)
[2023-03-07] MEDS: PRAMIPEXOLE 0.5 MG TABLET PO (14:13)
[2023-03-07] MEDS: carvediloL 25 MG TABLET PO (14:13)
[2023-03-07] MEDS: INSULIN GLARGINE (*BKC) 100 UNITS/ML 12 UNITS SUB-Q (14:13)
[2023-03-07] MEDS: GABAPENTIN 100 MG CAPSULE 200 MG PO (14:17)
== END 2023-03-07 14:35 | disposition home or self-care (01) | DRG 689 ==
LOC: ANHED 17:32 → ANH3MEDSUR 19:45
PROVIDERS: Internal Medicine Nephrology; Nurse Practitioner; Admitting Provider Student in an Organized Health Care Education/Training Program; Emergency Provider Physician Assistant; PCP Nurse Practitioner Family; Visit Provider Nurse Practitioner
DX: N39.0 Urinary tract infection, site not specified (principal); N18.6 End stage renal disease; I12.0 Hypertensive chronic kidney disease with stage 5 chronic kidney disease or end stage renal disease; I48.20 Chronic atrial fibrillation, unspecified; B96.20 Unspecified Escherichia coli [E. coli] as the cause of diseases classified elsewhere; G47.33 Obstructive sleep apnea (adult) (pediatric); E11.22 Type 2 diabetes mellitus with diabetic chronic kidney disease; G40.909 Epilepsy, unspecified, not intractable, without status epilepticus; N40.0 Benign prostatic hyperplasia without lower urinary tract symptoms; M54.41 Lumbago with sciatica, right side; M16.11 Unilateral primary osteoarthritis, right hip; M47.816 Spondylosis without myelopathy or radiculopathy, lumbar region; E78.5 Hyperlipidemia, unspecified; Z99.2 Dependence on renal dialysis; Z79.4 Long term (current) use of insulin; Z95.1 Presence of aortocoronary bypass graft; Z95.5 Presence of coronary angioplasty implant and graft
CPT/HCPCS: 36415; 72131; 73502; 74176; 80053; 80074; 81001; 82728; 82948; 83036; 83605; 83735; 84100; 84443; 85025; 85610; 86706; 87040; 87077; 87086; 87088; 87186; 87340; 96365; 96366; 96375; 99285; A9270; G0257; G0378; J0131; J0696; J1815; J2920; J7030; J7040; P9047; Q5105

== ENCOUNTER 2023-05-27 08:46 | Inpatient (IN) | payer MEDICARE, SELFPAY ==
[2023-05-27] VITALS (30 sets, daily range): BP systolic 91–119; BP diastolic 56–102; PULSE 89–103; RESP 15–35; TEMP 36.3–37; O2SAT 90–98; BMI 28.9
--- NOTE | ~2023-05-27 | CT_ITS ---
EXAMINATION: CT brain wo con DATE: 05/28/2023 17:55 INDICATION: Confusion. TECHNIQUE: Computed tomography (CT) of the head was performed without intravenous contrast. The mA wa s adjusted according to patient size. Iterative reconstruction technique was employed. The dose-lengt h product was 1135.00 mGy-cm. COMPARISON: Head CT 05/27/2023 FINDINGS: There is mild motion artifact. There is no intracranial hemorrhage, acute infarction, or ab normal intracranial mass lesion. There are scattered areas of low attenuation in the cerebral white m atter, which is within normal limits for the patient's age. The ventricles are normal in size. There are likely changes of ocular lens replacement surgeries. There is mild mucosal thickening in the para nasal sinuses. The mastoid air cells are normal. IMPRESSION: 1. Normal aging brain. Reviewed, dictated and finalized at location E. IMPRESSION: 1. Normal aging brain.
--- NOTE | ~2023-05-27 | XR_ITS ---
EXAMINATION: XR knee RT 3V DATE: 05/27/2023 09:51 INDICATION: Right knee pain TECHNIQUE: Three views of the right knee were obtained. COMPARISON: None. FINDINGS: Alignment is normal. No fracture or osteochondral lesion. There is tricompartmental osteoar thritis, moderate to severe in the medial compartment and moderate in the patellofemoral compartment. There is a large knee joint effusion. There is moderate medial soft tissue swelling of the knee. IMPRESSION: 1. Large knee joint effusion. 2. Tricompartmental osteoarthritis. 3. Medial knee soft tissue swelling. Reviewed, dictated and finalized at location B.
--- NOTE | ~2023-05-27 | CT_ITS ---
EXAMINATION: CT brain wo con DATE: 05/27/2023 09:40 INDICATION: Weakness. Frequent falls while on blood thinners. TECHNIQUE: Computed tomography (CT) of the head was performed without intravenous contrast. Sagittal and coronal reconstructions were performed. The mA was adjusted according to patient size. Iterative reconstruction technique was employed. The dose-length product was 681.00 mGy-cm. COMPARISON: head CT dated 06/28/2011 FINDINGS: No fracture. No acute intracranial hemorrhage, acute infarction or abnormal extra axial fluid collect ion. There is mild scattered white matter hypoattenuation consistent with chronic small vessel ischem ic disease. Ventricles are normal and symmetric. No mass/mass effect. Mild mucosal thickening scatte red throughout the paranasal sinuses with small mucous retention cyst in the right maxillary sinus. C hanges of bilateral intraocular lens replacement. The orbits and mastoid air cells are normal. Intra cranial calcified cerebral atherosclerosis is noted. IMPRESSION: 1. No fracture or acute intracranial process. 2. Mild scattered white matter hypoattenuation consistent with chronic small vessel ischemic disease. Reviewed, dictated and finalized at location A. IMPRESSION: 1. No fracture or acute intracranial process. 2. Mild scattered white matter hypoattenuation consistent with chronic small ve ssel ischemic disease.
--- NOTE | ~2023-05-27 | MR_ITS ---
EXAMINATION: MR brain/brain stem wo con DATE: 06/02/2023 13:54 INDICATION: Confusion. TECHNIQUE: Magnetic resonance imaging (MRI) of the brain and brainstem was performed without intraven ous contrast. COMPARISON: Head CT 05/28/2023 FINDINGS: There are scattered areas of nonspecific increased T2-weighted signal intensity in the cere bral white matter. There is no intracranial hemorrhage, acute infarction, or abnormal intracranial ma ss lesion. The ventricles are normal in size. There is a mucous retention cyst in right maxillary sin us. There is mild mucosal thickening in the ethmoid sinuses. The mastoid air cells are normal. There are likely changes of ocular lens replacement surgeries. IMPRESSION: 1. Mild nonspecific cerebral white matter disease, which likely represents chronic small vessel ische james disease. Reviewed, dictated and finalized at location A. IMPRESSION: 1. Mild nonspecific cerebral white matter disease, which likely represents egg separator jolie small vessel ischemic disease.
--- NOTE | ~2023-05-27 | XR_ITS ---
EXAMINATION: XR tibia fibula RT 2V INDICATION: Right leg pain after fall TECHNIQUE: Two views of the right tibia and fibula are obtained on four radiographs. COMPARISON: None available FINDINGS: Bone alignment is normal. There is no acute fracture. Mild deformity of the proximal fibula suggests prior fracture. There is tricompartmental osteoarthritis of the knee. Calcified atheroscler osis is noted. There is mild osteoarthritis of the ankle. IMPRESSION: 1. No acute osseous abnormality. Reviewed, dictated and finalized at location B.
--- NOTE | 2023-05-27 09:03 | ECG_ITS ---
Measurements Intervals [place] Rate: 87 P: 38 [place]: 204 QRS: 16 QRSD: 107 T: 74 QT: 373 QTc: 451 Interpretive Statements SINUS RHYTHM POSSIBLE LEFT ATRIAL ENLARGEMENT CANNOT RULE OUT SEPTAL INFARCT, AGE INDETERMINATE CONSIDER INFERIOR INFARCT, AGE INDETERMINATE BORDERLINE T WAVE ABNORMALITY- HIGH LATERAL LEADS BASELINE ARTIFACT- I, II, III, AVR, AVL, AVF, V1-V2 ABNORMAL ECG COMPARED TO ECG 12/11/2019 12:46:32 NO SIGNIFICANT CHANGES Electronically Signed On 05-30-2023 12:59:08 CDT by Eliot Lacy D.O.
--- NOTE | 2023-05-27 09:10 | ED.GENADULT ---
HPI - General Adult General Chief complaint: Weakness Stated complaint: weakness/ dialysis ? Time Seen by Provider: 05/27/23 08:54 Source: patient Mode of arrival: EMS Limitations: no limitations History of Present Illness HPI narrative: This is a 73-year-old male with PMH ESRD, A-fib, DM type II, HTN who presents to the ED with chief complaint of frequent falls over the past week. Patient states that specifically his right leg has been feeling weaker and causing him to fall while he transitions. He states that on Tuesday night he was trying to get out of the bathtub and he suffered a fall onto the right knee due to the weakness. He states has been going on for many years but certainly worse in the past week. He now reports right knee pain and right lower leg pain. He has history of neuropathy states he always has some sensory deficits in the bilateral lower extremities. He states that these episodes are not associated with any shortness of breath or chest pain. Denies any recent fevers, chills, cough, nausea, vomiting, abdominal pain, diarrhea, speech changes, LOC, vision changes. Denies any further site of pain or injury. Per chart review he has seizure disorder and his medical history, however he states this was as a child and he does not take any medications and has not had any seizures. States he is taking warfarin nightly. Patient sees a cap inspector in [place], Dr. Wesley Santiago. He participates in dialysis M// and is due today. Related Data Home Medications Medication Instructions Recorded Confirmed amiodarone 200 mg tablet 200 mg PO HS 12/11/19 05/27/23 atorvastatin 40 mg tablet 40 mg PO HS 12/11/19 05/27/23 insulin lispro 100 unit/mL See Rx Instructions .Route .COMPLEX 12/11/19 05/27/23 subcutaneous solution (Humalog U-100 Insulin) finasteride 5 mg tablet 5 mg PO HS 10/02/20 05/27/23 tamsulosin 0.4 mg capsule 0.4 mg PO HS 10/02/20 05/27/23 citalopram 20 mg tablet 20 mg PO DAILY 03/03/23 05/27/23 sevelamer carbonate 800 mg tablet 800 mg PO TID 03/03/23 05/27/23 warfarin 5 mg tablet 5 mg PO HS 03/03/23 05/27/23 Hectorol 2 mcg IV USEASDIRECTD 05/27/23 05/27/23 Mircera 60 mcg [id number] 05/27/23 05/27/23 ergocalciferol (vitamin D2) 1,250 1,250 unit PO WEEKLY 05/27/23 05/27/23 mcg (50,000 unit) capsule lidocaine 5 % topical patch 1 patch transdermal DAILY PRN Pain 05/27/23 05/27/23 pregabalin 50 mg capsule 50 mg PO DAILY 05/27/23 05/27/23 Allergies Allergy/AdvReac Type Severity Reaction Status Date / Time morphine Allergy Mild TREMORS Verified 05/27/23 08:54 [facility] Past Medical History Medical History (Updated 05/27/23 @ 16:08 by Josette Washington NP) Atrial fibrillation AV fistula 3 attempts BPH (benign prostatic hyperplasia) Depression with anxiety DM2 (diabetes mellitus, type 2) ESRD (end stage renal disease) on dialysis HLD (hyperlipidemia) HTN (hypertension) Obstructive sleep apnea Seizure disorder Surgical History Surgical History (Updated 05/27/23 @ 15:48 by Josette [place] NP) H/O carpal tunnel repair H/O cataract extraction H/O cystoscopy H/O eye surgery H/O four vessel coronary artery bypass graft H/O heart artery stent X3 H/O shoulder surgery Left shoulder History of back surgery X3 History of bladder surgery History of parathyroid surgery Hx of nephrostomy Many years ago S/P cubital tunnel release Family History Family History Father No problems noted. Sibling Hypertension Cancer Grandparent Hypertension Diabetes mellitus Mother Ovarian cancer Sibling Cancer Social History Social History Social History: The patient has 5 children in the last child has Down syndrome. That child lives with him and his . 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 His last
[2023-05-27 10:08] LABS: Basophils Percent Auto 0.1 % (0.2-1.2); Hematocrit 34.2 % (42.0-52.0); Hemoglobin 11.2 g/dL (14.0-18.0); Immature Granulocyte Absolute 0.04 K/mm3 (0.00-0.031); Immature Granulocyte Percent A 0.5 % (0-0.5); Lymphocytes Percent Auto 6.6 % (18.3-44.2); Mean Corpuscular HGB Conc 32.7 g/dl (32-36); Mean Corpuscular Hemoglobin 32.5 pg (26-34); Mean Corpuscular Volume 99.1 fl (80-100); Mean Platelet Volume 9.7 fl (7.4-10.4); Monocytes Absolute Auto 0.5 K/mm3 (0.1-0.6); Neutrophils Absolute Auto 6.5 K/mm3 (1.3-6.7); Neutrophils Percent Auto 85.8 % (45.5-73.1); Platelet Count Result 145 k/mm3 (150-375); Red Blood Count 3.45 M/mm3 (4.6-6.20); Red Cell Distribution Width 14.5 % (11.5-14.5); White Blood Count 7.6 K/mm3 (4.5-10.0)
[2023-05-27 10:12] LABS: INR 1.6; Prothrombin Time 20.6 Seconds (11.1-14.7)
[2023-05-27 10:13] LABS: Magnesium 2.1 mg/dL (1.6-2.3); Partial Thromboplastin Time 38.3 SECONDS (22.3-36.8)
[2023-05-27 10:14] LABS: Alanine Aminotransferase 158 U/L (6-50); Albumin Level 4.1 g/dL (3.5-5.1); Alkaline Phosphatase 127 U/L (38-126); Anion Gap 13 mmol/L (8-16); Aspartate Amino Transferase 74 U/L (17-59); Bilirubin,Total 1.2 mg/dL (0.2-1.3); Blood Urea Nitrogen 63 mg/dL (9-20); Calcium 8.5 mg/dL (8.4-10.2); Carbon Dioxide 27 mmol/L (22-30); Chloride 92 mmol/L (98-107); Estimated CRCL calculation 10 ml/min; Estimated Glomerular Filt Rate 8; Glucose 112 mg/dL (65-110); Potassium 4.5 mmol/L (3.4-5.0); Sodium 132 mmol/L (137-145)
--- NOTE | 2023-05-27 11:13 | PC.NURSE ---
Patient report received from CHARLETTE Mosqueda. All questions answered and care of patient assumed.
[2023-05-27 12:40] LABS: Appearance Urine Turbid (Clear); Bacteria Urine 4+ /hpf; Bilirubin Urine Negative (Negative); Blood Urine 2+ (Negative); Color Urine Yellow (Yellow); Glucose Urine UA Negative (Negative); Ketones Urine Negative (Negative); Leukocyte Esterase Ur 3+ LEU/UL (Negative); Nitrate Urine Negative (Negative); Non Pathogenic Casts 0-2; Protein Urine 2+ mg/dL (Negative); RBC Urine 0-2 /hpf (0-2); Specific Grav Ur 1.012 (1.001-1.035); Squamous Epithelial Cell Urine Occasional /hpf (Few); WBC Urine >100 /hpf; pH Urine 7.5 (5.0-9.0)
[2023-05-27 13:01] LABS: Add Urine Microscopic? YES
--- NOTE | 2023-05-27 13:07 | PM.IMHP ---
H&P: HPI History of Present Illness Date/Time: 05/27/23 13:07 Chief Complaint: Weakness Narrative: This is a 73-year-old male patient who has end-stage renal disease and has dialysis on Tuesday. The patient has not had his dialysis yet today. The patient has multiple scabs on his toes and tells me that he has been tripping and falling recently. The patient states that his right leg feels weaker than usual and he has been falling quite frequently. The patient was trying to get out of the bathtub on Tuesday and suffered a fall and landed on his right knee. The patient stated that he has been weak for years but the last week has been worse than normal. Patient denies any shortness of breath or chest pain. No fever chills. No nausea vomiting diarrhea. Patient takes Coumadin nightly. He denies hitting his head. H&H is limb 11.2-34.2. Platelets 145. BUN 63 and 7.0. AST 74, ALT 158, and alkaline phosphatase 127. His urine has 3+ leukocyte esterase and greater than 100 wbc's. The patient was started on Rocephin. The patient is being admitted to observation status on the date of service is 05/27/2023. Review of Systems Review of Systems: All systems reviewed & are unremarkable except as noted in HPI and below Constitutional: Constitutional: Reports as per HPI and Reports no additional constitutional complaints Eyes: Eyes: Reports as per HPI and Reports no additional eye complaints ENT: Reports system reviewed and no additional complaints, except as documented and Reports Normal hearing present Cardiovascular: Cardiovascular: Reports no additional cardiovascular complaints Respiratory: Respiratory: Reports no additional respiratory complaints and Reports no additional respiratory complaints Gastrointestinal: Gastrointestinal: Reports as per HPI and Reports no additional gastrointestinal complaints Musculoskeletal: Musculoskeletal: Reports no additional musculoskeletal complaints Integumentary/Breasts: Skin/Breast: Reports system reviewed and no additional complaints, except as docu and Reports as per HPI Neurologic: Reports system reviewed and no additional complaints, except as documented, Reports as per HPI and Reports Normal hearing present Psychiatric: Psychiatric: Reports no additional psychiatric complaints and Reports as per HPI Endocrine: Endocrine: Reports no additional endocrine complaints Hematologic/Lymphatic: Hematologic/Lymphatic: Reports no additional hematologic/lymphatic complaints Allergic/Immunologic: Allergic/Immunologic: Reports no additional allergic/immunologic complaints [facility] Past Medical History Medical History (Updated 05/27/23 @ 16:08 by Josette Washington NP) Atrial fibrillation AV fistula 3 attempts BPH (benign prostatic hyperplasia) Depression with anxiety DM2 (diabetes mellitus, type 2) ESRD (end stage renal disease) on dialysis HLD (hyperlipidemia) HTN (hypertension) Obstructive sleep apnea Seizure disorder Surgical History Surgical History (Updated 05/27/23 @ 15:48 by Josette Washington NP) H/O carpal tunnel repair H/O cataract extraction H/O cystoscopy H/O eye surgery H/O four vessel coronary artery bypass graft H/O heart artery stent X3 H/O shoulder surgery Left shoulder History of back surgery X3 History of bladder surgery History of parathyroid surgery Hx of nephrostomy Many years ago S/P cubital tunnel release Family History Family History Father No problems noted. Sibling Hypertension Cancer Grandparent Hypertension Diabetes mellitus Mother Ovarian cancer Sibling Cancer Social History Social History Social History: The patient has 5 children in the last child has Down syndrome. That child lives with him and his . 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
--- NOTE | 2023-05-27 15:41 | ADMGEN ---
This patient, Erma Harmon, was admitted to [facility] Room 306-01. Patient/family oriented to hospital policies and general routines including ID bracelet, bed and alarms, visiting hours, pain management, procedures, bathroom and other care routines, personal items, smoking policy, room service/diet, and visiting hours. Information on how to activate the Rapid Response Team has been discussed. Patient/Family are encouraged to report perceived risks to care and to ask questions if they do not understand what they are told or what they should do.
--- NOTE | 2023-05-27 16:07 | PCDIET ---
Nutrition note: Screen MST 3, -14-23 lb, +poor appetite. Per EMR, pt showing -10 lb weight loss/3 months, 4%/3 m - not meeting ASPEN criteria for malnutrition. Hemo dialysis pt. Ordering Nepro BID for poor appetite. Full assessment to follow.
[2023-05-27 16:27] LABS: Glucose Point of Care 119 mg/dl (65-105)
[2023-05-27 21:12] LABS: Glucose Point of Care 150 mg/dl (65-105)
[2023-05-27] MEDS: TAMSULOSIN HCL 0.4 MG CAPSULE PO (21:36)
[2023-05-27] MEDS: AMIODARONE HCL 200 MG TABLET PO (21:36)
[2023-05-27] MEDS: ATORVASTATIN 40 MG TABLET PO (21:36)
[2023-05-27] MEDS: FINASTERIDE 5 MG TABLET PO (21:36)
[2023-05-27] MEDS: WARFARIN (*PBKC) 5 MG TABLET PO (21:36)
[2023-05-28] VITALS (30 sets, daily range): BP systolic 88–128; BP diastolic 46–101; PULSE 81–151; RESP 18–22; TEMP 35.5–37.5; O2SAT 88–95
[2023-05-28 05:51] LABS: Hematocrit 28.3 % (42.0-52.0); Hemoglobin 9.6 g/dL (14.0-18.0); Mean Corpuscular HGB Conc 33.9 g/dl (32-36); Mean Corpuscular Hemoglobin 32.8 pg (26-34); Mean Corpuscular Volume 96.6 fl (80-100); Platelet Count Result 140 k/mm3 (150-375); Red Blood Count 2.93 M/mm3 (4.6-6.20); Red Cell Distribution Width 14.6 % (11.5-14.5); White Blood Count 6.9 K/mm3 (4.5-10.0)
[2023-05-28 06:01] LABS: INR 1.7; Prothrombin Time 20.7 Seconds (11.1-14.7)
[2023-05-28 06:10] LABS: Alanine Aminotransferase 90 U/L (6-50); Albumin Level 3.3 g/dL (3.5-5.1); Alkaline Phosphatase 84 U/L (38-126); Anion Gap 14 mmol/L (8-16); Aspartate Amino Transferase 57 U/L (17-59); Bilirubin,Total 0.9 mg/dL (0.2-1.3); Blood Urea Nitrogen 85 mg/dL (9-20); Calcium 8.1 mg/dL (8.4-10.2); Carbon Dioxide 26 mmol/L (22-30); Chloride 93 mmol/L (98-107); Estimated CRCL calculation 9 ml/min; Estimated Glomerular Filt Rate 7; Glucose 144 mg/dL (65-110); Magnesium 2.1 mg/dL (1.6-2.3); Phosphorus 7.3 mg/dL (2.5-4.5); Potassium 4.5 mmol/L (3.4-5.0); Sodium 133 mmol/L (137-145)
[2023-05-28 06:50] LABS: Band Neutrophils Percent 20 % (0-6); Lymphocytes Absolute Manual 0.27 K/mm3 (1.1-4.5); Monocytes Absolute Manual 0.34 K/mm3 (0.1-0.90); Monocytes Percent Manual 5 % (3-9); Neutrophils Absolute Manual 6.27 K/mm3 (1.3-6.7); Neutrophils Percent Manual 71 % (46-73); Platelet Estimate Adequate (Adequate); Total Cells Counted 100
[2023-05-28 06:51] LABS: Burr Cells 1+ (NORMAL); Schistocytes None Seen (NORMAL)
[2023-05-28 07:03] LABS: Thyroid Stimulating Hormone Reflex 0.365 uIU/mL (0.465-4.68)
[2023-05-28 07:19] LABS: Glucose Point of Care 147 mg/dl (65-105)
[2023-05-28 07:27] LABS: Hemoglobin A1C 6.9 % (<5.7)
[2023-05-28] MEDS: CITALOPRAM HYDROBROMIDE 20 MG TABLET PO (08:31)
[2023-05-28] MEDS: PREGABALIN (*CRX) 50 MG CAPSULE PO (08:32)
[2023-05-28] MEDS: SEVELAMER CARBONATE 800 MG TABLET PO ×3 (08:32→18:36)
[2023-05-28 10:51] LABS: Toxigenic C. Diff NEGATIVE (NEGATIVE)
[2023-05-28 11:39] LABS: Glucose Point of Care 150 mg/dl (65-105)
--- NOTE | 2023-05-28 12:20 | PM.CNNEP ---
Assessment and Plan Assessment and plan (1) ESRD (end stage renal disease) on dialysis: Code(s): N18.6 - End stage renal disease; Z99.2 - Dependence on renal dialysis Status: Acute Assessment and Plan: The patient has end-stage renal disease. This is most likely due to diabetes and hypertension. He was due for dialysis yesterday and came in because is unable to get to dialysis. He has been admitted and is getting physical therapy and occupational therapy and possibly placement. His electrolytes are okay. Volume status looks okay on exam. Will do dialysis today. Will do a 3K bath and will take off a little bit of fluid. (2) Acute right-sided low back pain with right-sided sciatica: Code(s): M54.41 - Lumbago with sciatica, right side Status: Acute Assessment and Plan: Patient has sciatica with right leg weakness. He is being evaluated for this. (3) HTN (hypertension): Code(s): I10 - Essential (primary) hypertension Status: Chronic Assessment and Plan: The patient has hypertension. His blood pressure is actually on the low side. He is not on any blood pressure medicines as an outpatient. His echo in January looked pretty good. Will check TSH and cortisol levels (4) Urinary tract infection: Qualifiers: Hematuria presence: without hematuria Urinary tract infection type: acute cystitis Qualified Code(s): N30.00 - Acute cystitis without hematuria Code(s): N39.0 - Urinary tract infection, site not specified Status: Acute Assessment and Plan: He has pyuria. He is getting antibiotics. Blood culture and urine cultures are pending (5) DM2 (diabetes mellitus, type 2): Code(s): E11.9 - Type 2 diabetes mellitus without complications Status: Acute Assessment and Plan: Management per hospitalists (6) Erythropoietin deficiency anemia: Code(s): D63.1 - Anemia in chronic kidney disease Status: Acute Assessment and Plan: Hemoglobin 9.6. Will give him some Epogen with dialysis (7) Renal osteodystrophy: Code(s): N25.0 - Renal osteodystrophy Status: Acute Assessment and Plan: Will check a phosphorus in the morning History of Present Illness Reason for Consult Consult date: 05/28/23 Chief Complaint Chief complaint: Right Leg Weakness/Frequent Falls History of Present Illness Narrative: Erma is a very pleasant 73-year-old gentleman who has multiple medical problems including end-stage renal disease on dialysis 3 times a week, av fistula, heart disease with coronary artery bypass graft in the past and a myocardial infarction in the past, atrial fibrillation, sleep apnea, seizure disorder. He normally dialyzes on Wednesdays and Fridays. He lives at home he has noted that his right leg is been weaker over the last few months. He has had more more trouble getting out of a chair and getting out of bed and so came to the emergency room. The patient did not get his dialysis yesterday. His labs were okay so he was admitted he is getting a social service consult for placement and is due for dialysis today. Patient denies any shortness of breath or chest pain. No skin rash or joint pains. No ENT or neurologic issues other than his weak right leg. He does have hyperlipidemia and is on atorvastatin for this. He has diabetes and is getting insulin for this. He has renal osteodystrophy and is getting sevelamer for this. He has atrial fibrillation in the and is getting his warfarin for this. His heart rate is under good control. Review of Systems Constitutional: Constitutional: Reports no additional constitutional complaints Eyes: Eyes: Reports no additional eye complaints ENT: Reports system reviewed and no additional complaints, except as documented Cardiovascular: Cardiovascular: Reports no additional cardiovascular complaints Respiratory: Respiratory: Reports no additional resp
[2023-05-28 12:27] LABS: Free T4 Free Thyroxine Reflex 2.84 ng/dL (0.78-2.19)
[2023-05-28 13:24] LABS: Hepatitis B Surface Antigen Negative (Negative)
--- NOTE | 2023-05-28 13:41 | PM.PNNEP ---
Subjective Date/time seen: 05/28/23 13:41 Interval history: patient is on dialysis and tolerating it well. Was seen at 1:15 p.m.. Objective Data Vital Signs Vital Signs: Vital Signs - 24 hr 05/27/23 14:55 05/27/23 16:01 05/27/23 15:48 Temperature 98.6 F Pulse Rate 92 90 Respiratory Rate 22 H Blood Pressure 91/65 L Pulse Oximetry 90 Oxygen Delivery Room Air 05/27/23 21:36 05/27/23 22:00 05/27/23 20:00 Temperature 97.4 F L Pulse Rate 93 93 Respiratory Rate 20 Blood Pressure 119/60 Pulse Oximetry 92 Oxygen Delivery Room Air 05/27/23 20:00 05/28/23 00:00 05/27/23 21:30 Temperature Pulse Rate 95 96 Respiratory Rate 19 Blood Pressure Pulse Oximetry Oxygen Delivery Autopap 05/28/23 02:25 05/28/23 04:00 05/28/23 06:00 Temperature 99.5 F Pulse Rate 95 85 Respiratory Rate 20 Blood Pressure 100/54 L Pulse Oximetry 94 Oxygen Delivery Autopap 05/28/23 08:30 05/28/23 08:32 05/28/23 08:01 Temperature Pulse Rate 94 Respiratory Rate Blood Pressure Pulse Oximetry Oxygen Delivery Room Air Room Air 05/28/23 12:48 05/28/23 13:10 05/28/23 12:40 Temperature 98.4 F Pulse Rate 95 118 H 94 Respiratory Rate 20 Blood Pressure 107/57 L 124/101 H 98/58 L Pulse Oximetry Oxygen Delivery Intake/Output Intake/Output: Intake & Output 05/25/23 05/26/23 05/27/23 05/28/23 23:59 23:59 23:59 23:59 Intake Total 100 240 Output Total 0 0 Balance 100 240 Meds/Results Medications: Active Medications Generic Name Dose Route Start Last Admin Trade Name Freq PRN Reason Stop Dose Admin Acetaminophen 650 mg 05/27/23 13:01 Acetaminophen 325 Mg Tablet PO Q4H PRN Mild Pain (1-3) or Fever Amiodarone HCl 200 mg 05/27/23 21:00 05/27/23 21:36 Amiodarone Hcl 200 Mg Tablet PO 200 mg HS AURELIO Administration Atorvastatin Calcium 40 mg 05/27/23 21:00 05/27/23 21:36 Atorvastatin 40 Mg Tablet PO 40 mg HS AURELIO Administration Citalopram Hydrobromide 20 mg 05/28/23 09:00 05/28/23 08:31 Citalopram Hydrobromide 20 Mg Tablet PO 20 mg DAILY AURELIO Administration Dextrose 12.5 gm 05/27/23 16:00 Dextrose 50% 25 Gm/50 Ml Syringe IV PUSH PRN PRN Hypoglycemia Protocol Epoetin Sunil-epbx 8,000 units 05/28/23 15:00 Epoetin Sunil-Epbx 4,000 Units/Ml Vial IV PUSH MOWEFR AURELIO Epoetin Sunil-epbx 2,000 units 05/28/23 15:00 Epoetin Sunil-Epbx 2,000 Units/Ml Vial IV PUSH MOWEFR AURELIO Ergocalciferol 1,250 units 06/01/23 09:00 Ergocalciferol 50,000 Units Capsule PO We@0900 AURELIO Finasteride 5 mg 05/27/23 21:00 05/27/23 21:36 Finasteride 5 Mg Tablet PO 5 mg HS AURELIO Administration Glucagon 1 mg 05/27/23 16:00 Glucagon For Inj 1 Mg Vial IM PRN PRN Hypoglycemia Protocol Glucose 15 gm 05/27/23 16:00 Glucose Oral Gel 15 Gm Of Glucse In 37.5 Gm Tube PO PRN PRN Hypoglycemia Protocol Ceftriaxone Sodium 1 gm in 50 mls @ 100 mls/hr 05/28/23 12:00 Rocephin 1 Gm/Ns 50 Ml IVPB NOON AURELIO Dextrose 1,000 mls @ 100 mls/hr 05/27/23 16:00 Dextrose 5% 1,000 Ml IVPB PRN PRN Hypoglycemia Protocol Albumin Human 50 mls @ 999 mls/hr 05/28/23 11:50 Albutein IVPB 05/29/23 11:49 Q10M PRN HYPOTENSION Insulin Aspart 1 - 2 units 05/27/23 21:00 05/27/23 21:30 Insulin Aspart (*Bkc) 100 Units/Ml SUB-Q Not Given HS AURELIO Protocol Insulin Aspart 2 - 5 units 05/27/23 17:00 05/28/23 11:52 Insulin Aspart (*Bkc) 100 Units/Ml SUB-Q Not Given TIDWM AURELIO Protocol Lidocaine 1 patch 05/27/23 19:41 Lidocaine 5% Patch TRANSDERM DAILY PRN Pain Lorazepam 0.5 mg 05/27/23 19:42 Lorazepam Inj (*Crx) 2 Mg/Ml Vial IV PUSH Q6H PRN Anxiety Pregabalin 50 mg 05/28/23 09:00 05/28/23 08:32 Pregabalin (*Crx) 50 Mg Capsule PO 50 mg DAILY AURELIO
[2023-05-28 13:46] LABS: Hepatitis B Surface Anti Res Positive
--- NOTE | 2023-05-28 14:02 | PM.IMPN ---
Progress Note: A&P Assessment and Plan (1) Urinary tract infection: Qualifiers: Hematuria presence: without hematuria Urinary tract infection type: acute cystitis Qualified Code(s): N30.00 - Acute cystitis without hematuria Code(s): N39.0 - Urinary tract infection, site not specified Status: Acute Assessment and Plan: Blood and urine cultures are pending. The patient was started on Rocephin. (2) DM2 (diabetes mellitus, type 2): Code(s): E11.9 - Type 2 diabetes mellitus without complications Status: Acute Assessment and Plan: Accu-Cheks AC and HS with sliding scale insulin. Continue with gabapentin for neuropathy. (3) Obstructive sleep apnea: Code(s): G47.33 - Obstructive sleep apnea (adult) (pediatric) Status: Acute Assessment and Plan: Continue with BiPAP/CPAP as per home settings. (4) BPH (benign prostatic hyperplasia): Code(s): N40.0 - Benign prostatic hyperplasia without lower urinary tract symptoms Status: Acute Assessment and Plan: Continue with Flomax (5) End stage renal disease: Code(s): N18.6 - End stage renal disease Status: Chronic Assessment and Plan: The patient has end-stage renal disease and is supposed to receive dialysis today. Nephrology has been consulted. (6) Frequent falls: Code(s): R29.6 - Repeated falls Status: Acute Assessment and Plan: PT OT evaluation of greatly be appreciated (7) HTN (hypertension): Code(s): I10 - Essential (primary) hypertension Status: Chronic Assessment and Plan: Continue with Coreg, amiodarone, (8) HLD (hyperlipidemia): Code(s): E78.5 - Hyperlipidemia, unspecified Status: Acute Assessment and Plan: Continue with atorvastatin (9) Atrial fibrillation: Code(s): I48.91 - Unspecified atrial fibrillation Status: Chronic Assessment and Plan: Patient's heart rate is controlled today. Continue with amiodarone and Coumadin. Daily PT INR. Patient's PT is 20.6 INR is 1.6. The patient is not therapeutic as of yet. Repeat daily PT INR. Give Coumadin tonight. (10) Depression with anxiety: Code(s): F41.8 - Other specified anxiety disorders Status: Acute Assessment and Plan: Continue with citalopram Plan 05/28/2023: Patient presented with frequent falls over past week. History of peripheral neuropathy. End-stage renal disease on hemodialysis Tuesday AFib type 2 diabetes hypertension anxiety depression obstructive sleep apnea seizure disorder on anticoagulation warfarin chronic right lower leg weakness evaluation reveals stable anemia which x-ray right and a large knee effusion tricompartmental arthritis. Medial knee soft tissue swelling. A CT with old ischemia without any acute abnormality. Admitted for PT OT evaluation UA with 3+ leukocyte esterase and greater than 100 wbc's. Started on Rocephin. Urine culture pending mild thrombocytopenia which is chronic. Subtherapeutic INR. Adjust Coumadin dosing. TSH mildly low. Mildly elevated LFTs as improved. Intermittently confused. Check ammonia level. A1c is 6.9. Subjective Date/time seen: 05/28/23 14:02 Interval history: Patient presented with frequent falls over past week. History of peripheral neuropathy. End-stage renal disease on hemodialysis Tuesday AFib type 2 diabetes hypertension anxiety depression obstructive sleep apnea seizure disorder on anticoagulation warfarin chronic right lower leg weakness evaluation reveals stable anemia which x-ray right and a large knee effusion tricompartmental arthritis. Medial knee soft tissue swelling. A CT with old ischemia without any acute abnormality. Admitted for PT OT evaluation UA with 3+ leukocyte esterase and greater than 100 wbc's. Started on Rocephin. Review of Systems Review of Systems: All systems reviewed & are unremarkable except
[2023-05-28] MEDS: SODIUM CHLORIDE 0.9% IV 1,000 ML 999 ML IV CONT (14:30)
[2023-05-28] MEDS: ALBUMIN HUMAN 25% 12.5 GM/50ML 50 ML 100 GM (14:30)
[2023-05-28] MEDS: EPOETIN ALFA-EPBX 4,000 UNITS/ML VIAL 8000 UNITS IV PUSH (14:30)
[2023-05-28] MEDS: EPOETIN ALFA-EPBX 2,000 UNITS/ML VIAL 2000 UNITS IV PUSH (14:31)
[2023-05-28 14:47] LABS: Ammonia < 9 umol/L (9-30)
[2023-05-28 15:35] LABS: Thyroid Stimulating Hormone Reflex 0.389 uIU/mL (0.465-4.68)
--- NOTE | 2023-05-28 15:58 | ECG_ITS ---
Measurements Intervals [place] Rate: 126 P: [place]: 0 QRS: -12 QRSD: 120 T: 79 QT: 304 QTc: 442 Interpretive Statements ATRIAL FIBRILLATION WITH RAPID VENTRICULAR RESPONSE INTRAVENTRICULAR CONDUCTION DELAY DELAYED PRECORDIAL R/S TRANSITION BORDERLINE ST-T WAVE ABNORMALITY- HIGH LATERAL LEADS BASELINE ARTIFACT- I, III, AVL, AVF ABNORMAL ECG COMPARED TO ECG 05/28/2023 16:24:02 ST (T WAVE) DEVIATION NOW PRESENT Electronically Signed On 05-29-2023 8:10:20 CDT by Eliot Lacy D.O.
[2023-05-28 16:39] LABS: Glucose Point of Care 114 mg/dl (65-105)
[2023-05-28 16:45] LABS: Free T4 Free Thyroxine Reflex 2.43 ng/dL (0.78-2.19)
[2023-05-28 17:13] LABS: Alveolar/Arterial O2 Gradient 92.4 mmHg; Base Excess ABG -3.1 mEq/l (+/-2.0); Fractional Inspired Oxygen 28 %; HCO3 ABG 20.3 mEq/l (22.0-26.0); Oxyhemoglobin 92.6 % THb (90.0-100.0); PCO2 ABG 30.8 mmHg (35.0-45.0); PO2 ABG 70.9 mmHg (80.0-100.0); PO2 FiO2 Ratio Arterial Blood 2.53 %; Total Hemoglobin 11.5 g/dL (12.0-18.0); pH ABG 7.436 (7.350-7.450)
[2023-05-28 17:15] LABS: Site Drawn RIGHT BRACHIAL
[2023-05-28] MEDS: ALBUMIN HUMAN 25% 25 GM/100 ML 100 ML IVPB (17:24)
[2023-05-28] MEDS: AMIODARONE HCL 200 MG TABLET PO (18:35)
--- NOTE | 2023-05-28 19:48 | PC.NURSE ---
Pt was A&O1 this morning. Pt ate minimal breakfast, and took medications without issue. Pt denied any pain and was resting well. Pt Vitals were within normal limits. Pt called and was concerned about dialysis. Provider was notified and provider stated he had already alerted dialysis that pt was here and needed to be dialyzed. Pt went to dialysis where they removed 1.5L. Pt was more confused and than earlier in the shift. Pt heart rate was up to 130's and 140's. Pt O2 was checked and pt was 88%. Pt blood pressure was taken and pt was 99/46. Pt had EKG done that showed Afib with RVR. Provider was notified by charge nurse. Pt was transferred to room and placed on 2L O2. Pt was also placed on continuous pulse ox. Pt heart rate continues to be high. Pt was given PO amiodarone and pt continues to have elevated heart rate. Pt had head CT done. Pt has albumin running. Pt did not receive antibiotic at noon due to being in dialysis. Pt has been assessed by hospitalist, Dr. Esquivel, orders per hospitalist. Pt was monitored for any other changes in status.
[2023-05-28] MEDS: WARFARIN (*PBKC) 5 MG TABLET PO (20:34)
[2023-05-28] MEDS: TAMSULOSIN HCL 0.4 MG CAPSULE PO (20:34)
[2023-05-28] MEDS: ATORVASTATIN 40 MG TABLET PO (20:34)
[2023-05-28] MEDS: FINASTERIDE 5 MG TABLET PO (20:34)
[2023-05-28 20:59] LABS: Glucose Point of Care 129 mg/dl (65-105)
--- NOTE | 2023-05-28 21:16 | ECG_ITS ---
Measurements Intervals [place] Rate: 120 P: [place]: 0 QRS: 5 QRSD: 114 T: 58 QT: 319 QTc: 451 Interpretive Statements ATRIAL FIBRILLATION WITH RAPID VENTRICULAR RESPONSE INTRAVENTRICULAR CONDUCTION DELAY DELAYED PRECORDIAL R/S TRANSITION CONSIDER INFERIOR INFARCT, AGE INDETERMINATE BASELINE ARTIFACT- I, II, III, AVR, AVL, AVF, V1-V3 ABNORMAL ECG COMPARED TO ECG 05/27/2023 09:03:55 ATRIAL FIBRILLATION NOW PRESENT Electronically Signed On 05-29-2023 7:53:53 CDT by Eliot aLcy D.O.
[2023-05-28] MEDS: AMIODARONE 360 MG/D5W 200 ML 360 MG/200 ML BAG 33.33 MG IV CONT (22:46)
[2023-05-28] MEDS: AMIODARONE 150 MG/D5W 100 ML 150 MG/100 ML BAG 600 MG IV CONT (22:47)
--- NOTE | 2023-05-28 23:15 | PM.EVENT ---
Event Note Event Note Event Note: S: Following dialysis the patient went into atrial fibrillation with rapid ventricular response blood pressures were soft. He was given IV albumin with improvement blood pressures however heart rate has been fluctuating between the 120s to 140s despite receiving p.o. amiodarone. O: Chronically ill-appearing gentleman in the semi-Peterson position in bed. He appears to be hallucinating, picking at things in the room. Pupils are approximately 3 mm and are reactive. Extraocular motions intact. Sclerae anicteric. Irregularly irregular rate and rhythm with rates in the 140s. Abdomen is soft and nontender with positive bowel sounds. No significant edema noted. Left upper extremity fistula with palpable thrill and bruit. A: Atrial fibrillation with rapid ventricular response and soft blood pressures. P: Transferred IMU for amiodarone bolus and drip. A total 35 minutes critical care time was spent attention of this patient.
--- NOTE | 2023-05-28 23:25 | PC.NURSE ---
This patient, Erma Harmon, was received from [[id number] ] on 05/28/23 at 2236 for iv antiarrythmic. Report received from Sherri OVALLES. Patient/family oriented to unit policies and routines.
[2023-05-29] VITALS (19 sets, daily range): BP systolic 95–114; BP diastolic 47–74; PULSE 62–128; RESP 18–22; TEMP 36–37.4; O2SAT 92–99
[2023-05-29 02:01] LABS: Glucose Point of Care 185 mg/dl (65-105)
[2023-05-29] MEDS: AMIODARONE 360 MG/D5W 200 ML 360 MG/200 ML BAG 16.67 MG IV CONT ×2 (04:26→16:05)
[2023-05-29 04:39] LABS: Basophils Percent Auto 0.4 % (0.2-1.2); Eosinophils Percent Auto 0.1 % (0-4.4); Hemoglobin 9.6 g/dL (14.0-18.0); Immature Granulocyte Absolute 0.03 K/mm3 (0.00-0.031); Immature Granulocyte Percent A 0.4 % (0-0.5); Lymphocytes Absolute Auto 0.37 K/mm3 (0.9-3.2); Lymphocytes Percent Auto 5.4 % (18.3-44.2); Mean Corpuscular HGB Conc 33.1 g/dl (32-36); Mean Corpuscular Hemoglobin 32.5 pg (26-34); Mean Corpuscular Volume 98.3 fl (80-100); Mean Platelet Volume 9.7 fl (7.4-10.4); Monocytes Absolute Auto 0.8 K/mm3 (0.1-0.6); Neutrophils Absolute Auto 5.6 K/mm3 (1.3-6.7); Neutrophils Percent Auto 82.7 % (45.5-73.1); Platelet Count Result 154 k/mm3 (150-375); Red Blood Count 2.95 M/mm3 (4.6-6.20); White Blood Count 6.8 K/mm3 (4.5-10.0)
[2023-05-29 05:00] LABS: Alanine Aminotransferase 89 U/L (6-50); Albumin Level 3.9 g/dL (3.5-5.1); Alkaline Phosphatase 84 U/L (38-126); Anion Gap 17 mmol/L (8-16); Aspartate Amino Transferase 157 U/L (17-59); Blood Urea Nitrogen 58 mg/dL (9-20); Calcium 8.7 mg/dL (8.4-10.2); Carbon Dioxide 23 mmol/L (22-30); Chloride 97 mmol/L (98-107); Estimated CRCL calculation 13 ml/min; Estimated Glomerular Filt Rate 11; Glucose 191 mg/dL (65-110); Magnesium 2.2 mg/dL (1.6-2.3); Potassium 4.2 mmol/L (3.4-5.0); Sodium 137 mmol/L (137-145)
--- NOTE | 2023-05-29 08:22 | PCPTNOTE ---
The patient treatment was not able to be completed on 05/29/23 08:22 due to elevated heart rate 122 bpm at rest. Will reassess as able to initiate therapy services
[2023-05-29 08:44] LABS: INR 2.3; Prothrombin Time 26.9 Seconds (11.1-14.7)
[2023-05-29 08:50] LABS: Glucose Point of Care 218 mg/dl (65-105)
[2023-05-29] MEDS: INSULIN ASPART (*BKC) 100 UNITS/ML SUB-Q ×4 (09:13→21:04)
[2023-05-29] MEDS: SEVELAMER CARBONATE 800 MG TABLET PO ×3 (09:14→17:49)
[2023-05-29] MEDS: CITALOPRAM HYDROBROMIDE 20 MG TABLET PO (09:14)
--- NOTE | 2023-05-29 11:52 | PM.PNNEP ---
Progress Note: A&P Assessment and Plan (1) ESRD (end stage renal disease) on dialysis: Code(s): N18.6 - End stage renal disease; Z99.2 - Dependence on renal dialysis Status: Acute Assessment and Plan: The patient has end-stage renal disease. This is most likely due to diabetes and hypertension. He is due for dialysis on Tuesday. He has been admitted and is getting physical therapy and occupational therapy and possibly placement. His pain is better. His electrolytes are okay. Volume status looks okay on exam. (2) Acute right-sided low back pain with right-sided sciatica: Code(s): M54.41 - Lumbago with sciatica, right side Status: Acute Assessment and Plan: Patient has sciatica with right leg weakness. He is being evaluated for this. Pain is improved (3) HTN (hypertension): Code(s): I10 - Essential (primary) hypertension Status: Chronic Assessment and Plan: The patient has hypertension. His blood pressure is actually on the low side. He is not on any blood pressure medicines as an outpatient. His echo in January looked pretty good. TSH is a little low. T4 is slightly high. The left hospitalists evaluate this. Cortisol levels are good. (4) Urinary tract infection: Qualifiers: Hematuria presence: without hematuria Urinary tract infection type: acute cystitis Qualified Code(s): N30.00 - Acute cystitis without hematuria Code(s): N39.0 - Urinary tract infection, site not specified Status: Acute Assessment and Plan: He has pyuria. He is getting Ceftriaxone Blood cultures are negative. Urine cultures show zabala sensitive E coli (5) DM2 (diabetes mellitus, type 2): Code(s): E11.9 - Type 2 diabetes mellitus without complications Status: Acute Assessment and Plan: Management per hospitalists (6) Erythropoietin deficiency anemia: Code(s): D63.1 - Anemia in chronic kidney disease Status: Acute Assessment and Plan: Hemoglobin 9.6. Will give him some Epogen with dialysis (7) Renal osteodystrophy: Code(s): N25.0 - Renal osteodystrophy Status: Acute Assessment and Plan: phosphorus level 6. He is getting sevelamer. Will follow this along Subjective Date/time seen: 05/29/23 11:52 Interval history: Erma is feeling better today. His pain is better. Eating pretty well. Review of Systems Cardiovascular: Cardiovascular: Reports no additional cardiovascular complaints Respiratory: Respiratory: Reports no additional respiratory complaints Gastrointestinal: Gastrointestinal: Reports no additional gastrointestinal complaints Genitourinary: Genitourinary: Reports no additional male genitourinary complaints Exam Narrative: WDWN in NAD skin no rash head ncat lungs clear cor reg no rub abd BS+ nontender and soft ext no edema. Objective Data Vital Signs Vital Signs: Vital Signs - 24 hr 05/28/23 12:48 05/28/23 13:10 05/28/23 12:40 Temperature 98.4 F Pulse Rate 95 118 H 94 Respiratory Rate 20 Blood Pressure 107/57 L 124/101 H 98/58 L Pulse Oximetry Oxygen Delivery Oxygen Flow Rate Fraction of Inspired Oxygen 05/28/23 13:30 05/28/23 13:50 05/28/23 12:03 Temperature Pulse Rate 125 H 91 100 Respiratory Rate Blood Pressure 126/97 H 128/53 L Pulse Oximetry Oxygen Delivery Oxygen Flow Rate Fraction of Inspired Oxygen 05/28/23 14:00 05/28/23 14:10 05/28/23 14:30 Temperature 98.4 F Pulse Rate 118 H 90 98 Respiratory Rate 20 Blood Pressure 124/101 H 96/49 L 107/55 L Pulse Oximetry 92 Oxygen Delivery Oxygen Flow Rate Fraction of Inspired Oxygen 05/28/23 14:50 05/28/23 15:10 05/28/23 15:30 Temperature Pulse Rate 98 99 99 Respiratory Rate Blood Pressure 103/63 101/60 94/50 L Pulse Oximetry Oxygen Delivery Oxygen Flow Rate Fraction of Inspired Ox
--- NOTE | 2023-05-29 12:12 | P.PNIM_ITS ---
Progress Note: A&P Assessment and Plan (1) Urinary tract infection: Qualifiers: Hematuria presence: without hematuria Urinary tract infection type: acute cystitis Qualified Code(s): N30.00 - Acute cystitis without hematuria Code(s): N39.0 - Urinary tract infection, site not specified Status: Acute (2) DM2 (diabetes mellitus, type 2): Code(s): E11.9 - Type 2 diabetes mellitus without complications Status: Acute (3) Obstructive sleep apnea: Code(s): G47.33 - Obstructive sleep apnea (adult) (pediatric) Status: Acute (4) BPH (benign prostatic hyperplasia): Code(s): N40.0 - Benign prostatic hyperplasia without lower urinary tract symptoms Status: Acute (5) End stage renal disease: Code(s): N18.6 - End stage renal disease Status: Chronic (6) Frequent falls: Code(s): R29.6 - Repeated falls Status: Acute (7) HTN (hypertension): Code(s): I10 - Essential (primary) hypertension Status: Chronic (8) HLD (hyperlipidemia): Code(s): E78.5 - Hyperlipidemia, unspecified Status: Acute (9) Atrial fibrillation: Code(s): I48.91 - Unspecified atrial fibrillation Status: Chronic (10) Depression with anxiety: Code(s): F41.8 - Other specified anxiety disorders Status: Acute Plan 05/28/2023: Patient presented with frequent falls over past week. History of peripheral neuropathy. End-stage renal disease on hemodialysis Tuesday AFib type 2 diabetes hypertension anxiety depression obstructive sleep apnea seizure disorder on anticoagulation warfarin chronic right lower leg weakness evaluation reveals stable anemia which x-ray right and a large knee effusion tricompartmental arthritis. Medial knee soft tissue swelling. A CT with old ischemia without any acute abnormality. Admitted for PT OT evaluation UA with 3+ leukocyte esterase and greater than 100 wbc's. Started on Rocephin. Urine culture pending mild thrombocytopenia which is chronic. Subtherapeutic INR. Adjust Coumadin dosing. TSH mildly low. Mildly elevated LFTs as improved. Intermittently confused. Check ammonia level. A1c is 6.9. 05/29/2023: Patient presented with frequent falls over past week. History of peripheral neuropathy. End-stage renal disease on hemodialysis Tuesday AFib type 2 diabetes hypertension anxiety depression obstructive sleep apnea seizure disorder on anticoagulation warfarin chronic right lower leg weakness evaluation reveals stable anemia which x-ray right and a large knee effusion tricompartmental arthritis. Medial knee soft tissue swelling. A CT with old ischemia without any acute abnormality. Admitted for PT OT evaluation UA with 3+ leukocyte esterase and greater than 100 wbc's. Started on Rocephin. Urine culture with E coli sensitive to ceftriaxone. Mild thrombocytopenia which is chronic. Subtherapeutic INR. Adjust Coumadin dosing. INR therapeutic today.. TSH mildly low. Mildly elevated LFTs as improved. Intermittently con fused. Ammonia level is negative. CT head is negative. A1c is 6.9. Post dialysis patient went into AFib with RVR. Hypotensive as well. TSH 0.389 his been taken off of carvedilol per family. Started amiodarone drip due to hypotension cardiology to see. Echo 02/11/2023 with moderate concentric LVH with grade 1 diastolic dysfunction mild aortic stenosis. Subjective Date/time seen: 05/29/23 12:12 Interval history: Patient presented with frequent falls over past week. History of peripheral neuropathy. End-stage renal disease on hemodialysis Tuesday AFib
--- NOTE | 2023-05-29 12:17 | PM.CNCAR ---
Assessment and Plan Assessment and plan (1) Atrial fibrillation: Code(s): I48.91 - Unspecified atrial fibrillation Status: Chronic Plan This is a 73-year-old man with underlying coronary artery disease surgical revascularization and paroxysmal atrial fibrillation. Condition is very complicated as he also has end-stage renal disease has renal transplant evaluation at [place] and is actually being scheduled for a living related donor transplant next month. He enters the hospital with severe lower extremity weakness resulting in frequent falling which is obviously very dangerous especially since he is anticoagulated. He was in sinus rhythm when he came into the hospital and has now gone back into atrial fib with which he appears to be hemodynamically not significantly embarrassed. Since he is chronically anticoagulated I would recommend continuing IV amiodarone for the time being. If he persists in atrial fib we will anticipate cardioverting him electrically during this hospitalization. Further evaluation of his lower extremity weakness is per the primary team. The possibility of amiodarone related peripheral neuropathy of course needs to be considered. He did have a follow-up left heart catheterization at [facility] in January of this year in anticipation at a/part of his transplant workup that procedure showed him to be well revascularized with patency of all of his grafts. Elie Martin MD [facility] History of Present Illness History of Present Illness Consult date/time: 05/29/23 12:17 Reason For Visit: Right Leg Weakness/Frequent Falls Narrative: This is a 73-year-old patient unknown to me prior to this encounter he is well known to my partner, Dr. Smith with a history of coronary artery disease with previous surgical revascularization and atrial fibrillation. 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 The patient was brought to the hospital several days ago by the family because of worsening problems with severe weakness of his lower extremities resulting in frequent falling that began with within the last several weeks. His is with him in the room and indicates that he has been falling about 5 or 6 times per week. He is extremely weak and his legs simply cannot hold him up any longer. His also indicates that his mental status seems to have changed he is a bit more confused and not lucid as far as his mental status is concerned. Because of these issues he was hospitalized several days ago. The etiology of the falling is not entirely known at this time. The patient was in sinus rhythm when he came to the hospital yesterday he reverted into atrial fib with RVR. With this he appears to be asymptomatic. He is receiving intravenous amiodarone and he has chronically anticoagulated with warfarin. In this setting I am asked to see him in consultation. The patient does respond to questions and is alert but is not entirely lucid. His provides a more reasonable history. His history of coronary disease dates back to 2018 when he was evaluated for exertional shortness of breath and was found to have significantly abnormal stress testing. Catheterization was done following which surgical revascularization was recommended. He received an TERENCE graft to the LAD a radial artery graft to the OM, saphenous vein graft to the PDA and a saphenous vein graft to the diagonal as a Y-graft constructed from the radial. He also has a history of atrial fibrillation which was initially felt to be a postop phenomenon and then has become more problematic. He has been maintained on amiodarone and has undergone cardioversion by Dr. Kessler back in November of 2019. Because of diabetes he has end-stage renal disease and is on hemodialysis. He is evaluated is a candidate for transplant at [facility]
[2023-05-29 12:31] LABS: Glucose Point of Care 253 mg/dl (65-105)
[2023-05-29] MEDS: PREGABALIN (*CRX) 50 MG CAPSULE PO (12:40)
[2023-05-29 17:44] LABS: Glucose Point of Care 250 mg/dl (65-105)
[2023-05-29 20:47] LABS: Glucose Point of Care 233 mg/dl (65-105)
[2023-05-29] MEDS: ATORVASTATIN 40 MG TABLET PO (20:56)
[2023-05-29] MEDS: WARFARIN (*PBKC) 5 MG TABLET PO (20:56)
[2023-05-29] MEDS: TAMSULOSIN HCL 0.4 MG CAPSULE PO (20:56)
[2023-05-29] MEDS: FINASTERIDE 5 MG TABLET PO (20:57)
[2023-05-30] VITALS (30 sets, daily range): BP systolic 87–120; BP diastolic 43–84; PULSE 76–118; RESP 14–22; TEMP 35.8–37.1; O2SAT 94–99; BMI 28.9
[2023-05-30] MEDS: AMIODARONE 360 MG/D5W 200 ML 360 MG/200 ML BAG 16.67 MG IV CONT ×2 (02:53→16:36)
[2023-05-30 04:56] LABS: Basophils Percent Auto 0.4 % (0.2-1.2); Eosinophils Absolute Auto 0.1 K/mm3 (0-0.3); Eosinophils Percent Auto 0.8 % (0-4.4); Hematocrit 30.6 % (42.0-52.0); Hemoglobin 10.4 g/dL (14.0-18.0); Immature Granulocyte Percent A 1.3 % (0-0.5); Lymphocytes Absolute Auto 0.47 K/mm3 (0.9-3.2); Lymphocytes Percent Auto 6.3 % (18.3-44.2); Mean Corpuscular Hemoglobin 32.8 pg (26-34); Mean Corpuscular Volume 96.5 fl (80-100); Mean Platelet Volume 9.5 fl (7.4-10.4); Monocytes Absolute Auto 0.9 K/mm3 (0.1-0.6); Monocytes Percent Auto 12.4 % (2.6-8.5); Neutrophils Absolute Auto 5.9 K/mm3 (1.3-6.7); Neutrophils Percent Auto 78.8 % (45.5-73.1); Platelet Count Result 164 k/mm3 (150-375); Red Blood Count 3.17 M/mm3 (4.6-6.20); Red Cell Distribution Width 14.7 % (11.5-14.5); White Blood Count 7.5 K/mm3 (4.5-10.0)
[2023-05-30 05:04] LABS: INR 2.3; Prothrombin Time 27.5 Seconds (11.1-14.7)
[2023-05-30 05:26] LABS: Alanine Aminotransferase 94 U/L (6-50); Albumin Level 3.5 g/dL (3.5-5.1); Alkaline Phosphatase 85 U/L (38-126); Anion Gap 22 mmol/L (8-16); Aspartate Amino Transferase 203 U/L (17-59); Bilirubin,Total 0.8 mg/dL (0.2-1.3); Blood Urea Nitrogen 86 mg/dL (9-20); Calcium 8.6 mg/dL (8.4-10.2); Carbon Dioxide 21 mmol/L (22-30); Chloride 95 mmol/L (98-107); Estimated CRCL calculation 10 ml/min; Estimated Glomerular Filt Rate 8; Glucose 195 mg/dL (65-110); Magnesium 2.4 mg/dL (1.6-2.3); Phosphorus 7.2 mg/dL (2.5-4.5); Potassium 3.9 mmol/L (3.4-5.0); Sodium 138 mmol/L (137-145)
[2023-05-30 08:01] LABS: Glucose Point of Care 191 mg/dl (65-105)
--- NOTE | 2023-05-30 08:11 | PM.PNNEP ---
Progress Note: A&P Assessment and Plan (1) ESRD (end stage renal disease) on dialysis: Code(s): N18.6 - End stage renal disease; Z99.2 - Dependence on renal dialysis Status: Acute Assessment and Plan: The patient has end-stage renal disease. This is most likely due to diabetes and hypertension. He is due for dialysis today. Orders were written and nurse has been notified. His electrolytes are okay. Volume status looks okay on exam. (2) Acute right-sided low back pain with right-sided sciatica: Code(s): M54.41 - Lumbago with sciatica, right side Status: Acute Assessment and Plan: Patient has sciatica with right leg weakness. He is being evaluated for this. Pain is improved (3) HTN (hypertension): Code(s): I10 - Essential (primary) hypertension Status: Chronic Assessment and Plan: The patient has hypertension. His blood pressure is actually on the low side. He is not on any blood pressure medicines as an outpatient. His echo in January looked pretty good. TSH is a little low. T4 is slightly high. I will let hospitalists evaluate this. Cortisol levels are good. (4) Urinary tract infection: Qualifiers: Hematuria presence: without hematuria Urinary tract infection type: acute cystitis Qualified Code(s): N30.00 - Acute cystitis without hematuria Code(s): N39.0 - Urinary tract infection, site not specified Status: Acute Assessment and Plan: He has pyuria. He is getting Ceftriaxone Blood cultures are negative. Urine cultures show zabala sensitive E coli (5) DM2 (diabetes mellitus, type 2): Code(s): E11.9 - Type 2 diabetes mellitus without complications Status: Acute Assessment and Plan: Management per hospitalists (6) Erythropoietin deficiency anemia: Code(s): D63.1 - Anemia in chronic kidney disease Status: Acute Assessment and Plan: Hemoglobin 9.6. Will give him some Epogen with dialysis (7) Renal osteodystrophy: Code(s): N25.0 - Renal osteodystrophy Status: Acute Assessment and Plan: phosphorus level 6. He is getting sevelamer. Will increase the dose to 1600. (8) Encephalopathy: Code(s): G93.40 - Encephalopathy, unspecified Status: Acute Assessment and Plan: He has waxing and waning mental status. Hold the Lyrica. Subjective Date/time seen: 05/30/23 08:11 Interval history: Erma is lying in bed. He is a little hard to awaken and is a little confused. His confusion has been waxing and waning over the last few days. I talked with Nursing. His is worried about the Lyrica which turns out to be a relatively new medication. I would agree with holding this. Exam Narrative: WDWN in NAD skin no rash or subQ nodules head ncat lungs clear cor reg no rub or gallop abd BS+ nontender and soft ext no edema. Objective Data Vital Signs Vital Signs: Vital Signs - 24 hr 05/29/23 08:26 05/29/23 10:00 05/29/23 11:58 Temperature Pulse Rate 118 H 113 H Respiratory Rate 22 H Blood Pressure Pulse Oximetry 92 92 Oxygen Delivery Nasal Cannula Nasal Cannula Oxygen Flow Rate 2 2 Fraction of Inspired Oxygen 28 05/29/23 12:00 05/29/23 16:05 05/29/23 16:00 Temperature Pulse Rate 94 108 H 111 H Respiratory Rate Blood Pressure Pulse Oximetry Oxygen Delivery Oxygen Flow Rate Fraction of Inspired Oxygen 05/29/23 16:00 05/29/23 16:00 05/29/23 12:05 Temperature 97.2 F L 97 F L Pulse Rate 111 H 102 H 110 H Respiratory Rate 20 20 22 H Blood Pressure 105/74 110/70 Pulse Oximetry 94 96 97 Oxygen Delivery Nasal Cannula Oxygen Flow Rate 2 Fraction of Inspired Oxygen 05/29/23 18:00 05/29/23 20:00 05/29/23 20:00 Temperature 99.2 F Pulse Rate 112 H 113 H Respiratory Rate 18 Blood Pressure 102/47 L Pulse Oximetry 96 96 Oxygen Delivery Nasal Cannula
--- NOTE | 2023-05-30 08:52 | PCPTNOTE ---
spoke with Dr. Barrios, who OK DC of bedrest orders. Will make RN aware.
--- NOTE | 2023-05-30 08:57 | PCPTNOTE ---
Attempted PT evaluation, patient is at dialysis. Will follow.
[2023-05-30] MEDS: SODIUM CHLORIDE 0.9% IV 1,000 ML 999 ML IV CONT (10:09)
[2023-05-30] MEDS: EPOETIN ALFA-EPBX 2,000 UNITS/ML VIAL 2000 UNITS IV PUSH (10:10)
[2023-05-30] MEDS: EPOETIN ALFA-EPBX 4,000 UNITS/ML VIAL 8000 UNITS IV PUSH (10:10)
[2023-05-30 12:41] LABS: Glucose Point of Care 114 mg/dl (65-105)
--- NOTE | 2023-05-30 15:20 | PM.IMPN ---
Progress Note: A&P Assessment and Plan (1) Urinary tract infection: Qualifiers: Hematuria presence: without hematuria Urinary tract infection type: acute cystitis Qualified Code(s): N30.00 - Acute cystitis without hematuria Code(s): N39.0 - Urinary tract infection, site not specified Status: Acute (2) DM2 (diabetes mellitus, type 2): Code(s): E11.9 - Type 2 diabetes mellitus without complications Status: Acute (3) Obstructive sleep apnea: Code(s): G47.33 - Obstructive sleep apnea (adult) (pediatric) Status: Acute (4) BPH (benign prostatic hyperplasia): Code(s): N40.0 - Benign prostatic hyperplasia without lower urinary tract symptoms Status: Acute (5) End stage renal disease: Code(s): N18.6 - End stage renal disease Status: Chronic (6) Frequent falls: Code(s): R29.6 - Repeated falls Status: Acute (7) HTN (hypertension): Code(s): I10 - Essential (primary) hypertension Status: Chronic (8) HLD (hyperlipidemia): Code(s): E78.5 - Hyperlipidemia, unspecified Status: Acute (9) Atrial fibrillation: Code(s): I48.91 - Unspecified atrial fibrillation Status: Chronic (10) Depression with anxiety: Code(s): F41.8 - Other specified anxiety disorders Status: Acute Plan 05/28/2023: Patient presented with frequent falls over past week. History of peripheral neuropathy. End-stage renal disease on hemodialysis Tuesday AFib type 2 diabetes hypertension anxiety depression obstructive sleep apnea seizure disorder on anticoagulation warfarin chronic right lower leg weakness evaluation reveals stable anemia which x-ray right and a large knee effusion tricompartmental arthritis. Medial knee soft tissue swelling. A CT with old ischemia without any acute abnormality. Admitted for PT OT evaluation UA with 3+ leukocyte esterase and greater than 100 wbc's. Started on Rocephin. Urine culture pending mild thrombocytopenia which is chronic. Subtherapeutic INR. Adjust Coumadin dosing. TSH mildly low. Mildly elevated LFTs as improved. Intermittently confused. Check ammonia level. A1c is 6.9. 05/29/2023: Patient presented with frequent falls over past week. History of peripheral neuropathy. End-stage renal disease on hemodialysis Tuesday AFib type 2 diabetes hypertension anxiety depression obstructive sleep apnea seizure disorder on anticoagulation warfarin chronic right lower leg weakness evaluation reveals stable anemia which x-ray right and a large knee effusion tricompartmental arthritis. Medial knee soft tissue swelling. A CT with old ischemia without any acute abnormality. Admitted for PT OT evaluation UA with 3+ leukocyte esterase and greater than 100 wbc's. Started on Rocephin. Urine culture with E coli sensitive to ceftriaxone. Mild thrombocytopenia which is chronic. Subtherapeutic INR. Adjust Coumadin dosing. INR therapeutic today.. TSH mildly low. Mildly elevated LFTs as improved. Intermittently confused. Ammonia level is negative. CT head is negative. A1c is 6.9. Post dialysis patient went into AFib with RVR. Hypotensive as well. TSH 0.389 his been taken off of carvedilol per family. Started amiodarone drip due to hypotension cardiology to see. Echo 02/11/2023 with moderate concentric LVH with grade 1 diastolic dysfunction mild aortic stenosis. 05/30/2023: Patient presented with frequent falls over past week. History of peripheral neuropathy. End-stage renal disease on hemodialysis Tuesday AFib type 2 diabetes hypertension anxiety depression obstructive sleep apnea seizure disorder on anticoagulation warfarin chronic right lower leg weakness evaluation reveals stable anemia which x-ray right and a large knee effusion tricompartmental arthritis. Medial knee soft tissue swelling. A CT with old ischemia without any acute abnormality. Admitted for PT OT
[2023-05-30 15:47] LABS: Glucose Point of Care 139 mg/dl (65-105)
[2023-05-30] MEDS: SEVELAMER CARBONATE 800 MG TABLET 1600 MG PO (17:34)
[2023-05-30] MEDS: AMOXICILLIN/CLAVULANATE K 500-125 MG TAB 1 TABLET PO ×2 (17:34→20:34)
[2023-05-30 20:30] LABS: Glucose Point of Care 237 mg/dl (65-105)
[2023-05-30] MEDS: ATORVASTATIN 40 MG TABLET PO (20:34)
[2023-05-30] MEDS: FINASTERIDE 5 MG TABLET PO (20:34)
[2023-05-30] MEDS: WARFARIN (*PBKC) 5 MG TABLET PO (20:34)
[2023-05-30] MEDS: TAMSULOSIN HCL 0.4 MG CAPSULE PO (20:34)
[2023-05-30] MEDS: INSULIN ASPART (*BKC) 100 UNITS/ML SUB-Q (20:35)
[2023-05-31] VITALS (17 sets, daily range): BP systolic 101–152; BP diastolic 47–66; PULSE 85–149; RESP 16–22; TEMP 36.2–36.7; O2SAT 93–100
[2023-05-31] MEDS: AMIODARONE 360 MG/D5W 200 ML 360 MG/200 ML BAG 16.67 MG IV CONT ×2 (03:39→13:34)
[2023-05-31 05:18] LABS: Basophils Percent Auto 0.3 % (0.2-1.2); Eosinophils Absolute Auto 0.2 K/mm3 (0-0.3); Hematocrit 29.4 % (42.0-52.0); Hemoglobin 10.2 g/dL (14.0-18.0); Immature Granulocyte Percent A 1.3 % (0-0.5); Lymphocytes Absolute Auto 0.61 K/mm3 (0.9-3.2); Mean Corpuscular HGB Conc 34.7 g/dl (32-36); Mean Corpuscular Hemoglobin 32.5 pg (26-34); Mean Corpuscular Volume 93.6 fl (80-100); Mean Platelet Volume 9.7 fl (7.4-10.4); Monocytes Absolute Auto 0.9 K/mm3 (0.1-0.6); Monocytes Percent Auto 11.7 % (2.6-8.5); Neutrophils Absolute Auto 5.7 K/mm3 (1.3-6.7); Neutrophils Percent Auto 75.7 % (45.5-73.1); Platelet Count Result 168 k/mm3 (150-375); Red Blood Count 3.14 M/mm3 (4.6-6.20); Red Cell Distribution Width 15.1 % (11.5-14.5); White Blood Count 7.6 K/mm3 (4.5-10.0)
[2023-05-31 05:27] LABS: INR 3.5; Prothrombin Time 38.1 Seconds (11.1-14.7)
[2023-05-31 05:32] LABS: Alanine Aminotransferase 98 U/L (6-50); Albumin Level 3.2 g/dL (3.5-5.1); Alkaline Phosphatase 85 U/L (38-126); Anion Gap 13 mmol/L (8-16); Aspartate Amino Transferase 186 U/L (17-59); Bilirubin,Total 0.8 mg/dL (0.2-1.3); Blood Urea Nitrogen 57 mg/dL (9-20); Calcium 8.5 mg/dL (8.4-10.2); Carbon Dioxide 24 mmol/L (22-30); Chloride 98 mmol/L (98-107); Estimated CRCL calculation 16 ml/min; Estimated Glomerular Filt Rate 13; Glucose 175 mg/dL (65-110); Magnesium 2.2 mg/dL (1.6-2.3); Phosphorus 4.9 mg/dL (2.5-4.5); Sodium 135 mmol/L (137-145)
[2023-05-31] MEDS: AMOXICILLIN/CLAVULANATE K 500-125 MG TAB 1 TABLET PO ×2 (08:16→20:45)
[2023-05-31] MEDS: CITALOPRAM HYDROBROMIDE 20 MG TABLET PO (08:16)
[2023-05-31] MEDS: SEVELAMER CARBONATE 800 MG TABLET 1600 MG PO ×2 (08:16→11:44)
[2023-05-31 08:25] LABS: Glucose Point of Care 197 mg/dl (65-105)
[2023-05-31] MEDS: INSULIN ASPART (*BKC) 100 UNITS/ML SUB-Q ×3 (11:50→21:33)
[2023-05-31 11:51] LABS: Glucose Point of Care 280 mg/dl (65-105)
--- NOTE | 2023-05-31 12:21 | PM.PNCARD ---
Progress Note: A&P Assessment and Plan (1) Atrial fibrillation: Code(s): I48.91 - Unspecified atrial fibrillation Status: Chronic Assessment and Plan: Paroxysmal atrial fibrillation on IV amiodarone now for several days. He remains in atrial fibrillation with rate generally in the low 100's. Since he is undergoing a living donor kidney transplant next month, preference would be to restore sinus rhythm. As such, plan is to proceed with cardioversion tomorrow with anesthesia. He does not require CHERYL as he is chronically anticoagulated. NPO after midnight in anticipation of this procedure tomorrow. Subjective Date/time seen: 05/31/23 12:21 Cardiology follow up for atrial fibrillation Interval history: Complaining of fatigue. Denies any palpitations, chest pain, shortness of breath. Review of Systems Review of Systems: All systems reviewed & are unremarkable except as noted in HPI and below Exam Const: General: comfortable Other: Well-developed well-nourished white male appears older than his stated age he is alert and responsive but is somewhat delirious HENMT: Mouth: Yes moist mucous membranes Eyes: Sclera: sclerae normal Neck: Neck: supple and no JVD Other: Carotid pulses bilaterally are unremarkable Resp: Effort & Inspection: normal respiratory effort Auscultation: clear to auscultation bilaterally Cardio: Rate: tachycardic Rhythm: abnormal rhythm irregularly irregular GI: Auscultation: normal bowel sounds Skin: General skin exam: normal color Neuro: Other: Alert and oriented x3 Extrem: Other: Adequate perfusion distally Objective Data Vital Signs Vital Signs: Vital Signs - 24 hr 05/30/23 14:00 05/30/23 15:49 05/30/23 16:00 Temperature 36.4 C Pulse Rate 91 87 101 H Respiratory Rate 20 Blood Pressure 118/71 Pulse Oximetry 96 Oxygen Delivery Oxygen Flow Rate 05/30/23 16:00 05/30/23 18:00 05/30/23 21:14 Temperature Pulse Rate 86 89 Respiratory Rate 20 Blood Pressure Pulse Oximetry 98 96 Oxygen Delivery Nasal Cannula Autopap Oxygen Flow Rate 2 05/30/23 20:00 05/31/23 00:00 05/31/23 00:00 Temperature 36.3 C L Pulse Rate 95 Respiratory Rate 20 Blood Pressure 113/54 L Pulse Oximetry 98 98 Oxygen Delivery Nasal Cannula CPAP Oxygen Flow Rate 2 05/30/23 20:00 05/31/23 01:28 05/30/23 22:00 Temperature Pulse Rate 93 93 Respiratory Rate 16 Blood Pressure Pulse Oximetry Oxygen Delivery Autopap Oxygen Flow Rate 05/31/23 00:00 05/31/23 02:00 05/31/23 04:00 Temperature Pulse Rate 89 95 90 Respiratory Rate Blood Pressure Pulse Oximetry Oxygen Delivery Oxygen Flow Rate 05/31/23 04:00 05/31/23 04:00 05/31/23 06:00 Temperature 36.7 C Pulse Rate 99 98 Respiratory Rate 22 H Blood Pressure 104/59 L Pulse Oximetry 98 93 Oxygen Delivery Nasal Cannula Oxygen Flow Rate 2 05/31/23 08:00 05/31/23 08:48 05/31/23 08:00 Temperature 36.6 C Pulse Rate 95 Respiratory Rate 18 Blood Pressure 115/57 L Pulse Oximetry 100 100 Oxygen Delivery Nasal Cannula Nasal Cannula Oxygen Flow Rate 2 2 05/31/23 08:00 05/31/23 10:00 Temperature Pulse Rate 102 H 102 H Respiratory Rate Blood Pressure Pulse Oximetry Oxygen Delivery Oxygen Flow Rate Intake/Output Intake/Output: Intake & Output 05/28/23 05/29/23 05/30/23 05/31/23 23:59 23:59 23:59 23:59 Intake Total 240 980 640 540 Output Total 1500 0 1200 350 Balance -1260 980 -560 190 Meds/Results Medications: Active Medications Generic Name Dose Route Start Last Admin Trade Name Freq PRN Reason Stop Dose Admin Acetaminophen 650 mg 05/27/23 13:01 Acetaminophen 325 Mg Tablet PO Q4H PRN Mild Pain (1-3) or Fever Amoxicillin/Clavulanate Potassium 1 tablet 05/30/23 12:30 05/31/23 08:16 Amoxicillin/Clavulanate K 500-125 Mg Tab PO 06/02/23
[2023-05-31] MEDS: HALOPERIDOL LACTATE 5 MG/ML VIAL 2 MG IM (12:43)
--- NOTE | 2023-05-31 13:00 | PC.NURSE ---
Pt became very combative and agitated after lunch trying to kick nursing staff became very physical with staff trying to climb out of his bed very not, is a very high fall risk has no safety awareness refusing education not re-directable telling nursing staff you are evil devils trying to harm me , pulling off all lines and tele throwing things, this nurse called Son Juvenal is at bedside at this time this nurse called Dr Esquivel made him aware and gave x1 order for Haloperidol 2 mg x1 IM to help clam him down, pt was refusing all vitals and lunch is aware of the medication that was given, aware of all risk of med as well. Pt is resting in bed now last BP 119/45, HR 112, SPO2 is 96% on 2 L NC.
--- NOTE | 2023-05-31 13:19 | PCPTNOTE ---
On 05/31/23, the student, BENY Redmond, provided care and completed [facility] documentation on this patient. I have reviewed the student's documentation and agree with the findings.
--- NOTE | 2023-05-31 14:37 | PC.NURSE ---
Re Byrd has been made aware of pt HR has been sustaining in the high 120s to 150s just now and CHAIR CANER will look at pt meds and put something in for him for better rate control, CHAIR CANER stated he is scheduled for a cardioversion in the am, so she doesnt want to be very aggressive at this time.
--- NOTE | 2023-05-31 15:26 | PM.PNNEP ---
Progress Note: A&P Assessment and Plan (1) ESRD (end stage renal disease) on dialysis: Code(s): N18.6 - End stage renal disease; Z99.2 - Dependence on renal dialysis Status: Acute Assessment and Plan: The patient has end-stage renal disease. This is most likely due to diabetes and hypertension. He is due for dialysis tomorrow. Volume status looks okay. His potassium and bicarbonate are okay. Will remove some fluid tomorrow, 1-2 L as tolerated. (2) Acute right-sided low back pain with right-sided sciatica: Code(s): M54.41 - Lumbago with sciatica, right side Status: Acute Assessment and Plan: Patient has sciatica with right leg weakness. He is being evaluated for this. Pain is better he is. He is mostly disturbed about his restless legs though. (3) HTN (hypertension): Code(s): I10 - Essential (primary) hypertension Status: Chronic Assessment and Plan: The patient has hypertension. His blood pressure has risen a bit. Now ranging about 100-120. His echo in January looked pretty good. TSH is a little low. T4 is slightly high. I will let hospitalists evaluate this. Cortisol levels are good. (4) Urinary tract infection: Qualifiers: Hematuria presence: without hematuria Urinary tract infection type: acute cystitis Qualified Code(s): N30.00 - Acute cystitis without hematuria Code(s): N39.0 - Urinary tract infection, site not specified Status: Acute Assessment and Plan: He has pyuria. Blood cultures are negative. Urine cultures show zabala sensitive E coli He is on ceftriaxone. He is afebrile. His white count is okay. (5) DM2 (diabetes mellitus, type 2): Code(s): E11.9 - Type 2 diabetes mellitus without complications Status: Acute Assessment and Plan: Management per hospitalists (6) Erythropoietin deficiency anemia: Code(s): D63.1 - Anemia in chronic kidney disease Status: Acute Assessment and Plan: Hemoglobin 9.6. He is getting Epogen epogen with dialysis (7) Renal osteodystrophy: Code(s): N25.0 - Renal osteodystrophy Status: Acute Assessment and Plan: phosphorus level is down to 4.9. He is on sevelamer 1600mg with meals. (8) Encephalopathy: Code(s): G93.40 - Encephalopathy, unspecified Status: Acute Assessment and Plan: Mental status seems better off the Lyrica. Subjective Date/time seen: 05/31/23 15:26 Interval history: Erma is lying in bed. is in the room. He is awake and alert and seems oriented but very fidgety. He usually takes ropinirole for his restless legs. Exam Narrative: WDWN in NAD skin no rash or subQ nodules head ncat lungs clear bilaterally cor reg no rub or gallop abd BS+ nontender and soft ext no edema or cyanosis. Objective Data Vital Signs Vital Signs: Vital Signs - 24 hr 05/30/23 15:49 05/30/23 16:00 05/30/23 16:00 Temperature 97.6 F Pulse Rate 87 101 H Respiratory Rate 20 Blood Pressure 118/71 Pulse Oximetry 96 98 Oxygen Delivery Nasal Cannula Oxygen Flow Rate 2 05/30/23 18:00 05/30/23 21:14 05/30/23 20:00 Temperature Pulse Rate 86 89 Respiratory Rate 20 Blood Pressure Pulse Oximetry 96 98 Oxygen Delivery Autopap Nasal Cannula Oxygen Flow Rate 2 05/31/23 00:00 05/31/23 00:00 05/30/23 20:00 Temperature 97.3 F L Pulse Rate 95 93 Respiratory Rate 20 Blood Pressure 113/54 L Pulse Oximetry 98 Oxygen Delivery CPAP Oxygen Flow Rate 05/31/23 01:28 05/30/23 22:00 05/31/23 00:00 Temperature Pulse Rate 93 89 Respiratory Rate 16 Blood Pressure Pulse Oximetry Oxygen Delivery Autopap Oxygen Flow Rate 05/31/23 02:00 05/31/23 04:00 05/31/23 04:00 Temperature Pulse Rate 95 90 Respiratory Rate Blood Pressure Pulse Oximetry 98 Oxygen Delivery Nasal Cannula Oxygen Fl
[2023-05-31 17:13] LABS: Glucose Point of Care 276 mg/dl (65-105)
[2023-05-31 20:30] LABS: Glucose Point of Care 294 mg/dl (65-105)
[2023-05-31] MEDS: ATORVASTATIN 40 MG TABLET PO (20:45)
[2023-05-31] MEDS: TAMSULOSIN HCL 0.4 MG CAPSULE PO (20:45)
[2023-05-31] MEDS: FINASTERIDE 5 MG TABLET PO (20:45)
[2023-05-31] MEDS: LORazepam INJ (*CRX) 2 MG/ML VIAL 1 MG IV PUSH (20:47)
[2023-05-31] MEDS: rOPINIRole HCL 0.25 MG TABLET PO (20:54)
[2023-06-01] VITALS (29 sets, daily range): BP systolic 90–164; BP diastolic 41–108; PULSE 55–123; RESP 18–30; TEMP 35.7–37; O2SAT 93–98
[2023-06-01] MEDS: AMIODARONE 360 MG/D5W 200 ML 360 MG/200 ML BAG 16.67 MG IV CONT (02:55)
[2023-06-01 05:41] LABS: Basophils Absolute Auto 0.1 K/mm3 (0.0-0.1); Basophils Percent Auto 0.5 % (0.2-1.2); Eosinophils Absolute Auto 0.2 K/mm3 (0-0.3); Eosinophils Percent Auto 1.7 % (0-4.4); Hemoglobin 10.2 g/dL (14.0-18.0); Immature Granulocyte Absolute 0.31 K/mm3 (0.00-0.031); Immature Granulocyte Percent A 2.9 % (0-0.5); Lymphocytes Percent Auto 8.5 % (18.3-44.2); Mean Corpuscular HGB Conc 35.2 g/dl (32-36); Mean Corpuscular Hemoglobin 32.2 pg (26-34); Mean Corpuscular Volume 91.5 fl (80-100); Mean Platelet Volume 10.1 fl (7.4-10.4); Monocytes Absolute Auto 0.9 K/mm3 (0.1-0.6); Monocytes Percent Auto 8.9 % (2.6-8.5); Neutrophils Absolute Auto 8.2 K/mm3 (1.3-6.7); Neutrophils Percent Auto 77.5 % (45.5-73.1); Platelet Count Result 197 k/mm3 (150-375); Red Blood Count 3.17 M/mm3 (4.6-6.20); Red Cell Distribution Width 15.2 % (11.5-14.5); White Blood Count 10.5 K/mm3 (4.5-10.0)
[2023-06-01 06:08] LABS: Alanine Aminotransferase 87 U/L (6-50); Albumin Level 3.3 g/dL (3.5-5.1); Alkaline Phosphatase 129 U/L (38-126); Anion Gap 19 mmol/L (8-16); Aspartate Amino Transferase 114 U/L (17-59); Bilirubin,Total 0.9 mg/dL (0.2-1.3); Blood Urea Nitrogen 84 mg/dL (9-20); Calcium 8.6 mg/dL (8.4-10.2); Carbon Dioxide 20 mmol/L (22-30); Chloride 93 mmol/L (98-107); Estimated CRCL calculation 11 ml/min; Estimated Glomerular Filt Rate 9; Glucose 280 mg/dL (65-110); Magnesium 2.3 mg/dL (1.6-2.3); Phosphorus 4.8 mg/dL (2.5-4.5); Potassium 4.1 mmol/L (3.4-5.0); Sodium 132 mmol/L (137-145)
[2023-06-01 06:18] LABS: Vancomycin Random 15.7 ug/mL (10-20)
[2023-06-01] MEDS: rOPINIRole HCL 0.25 MG TABLET PO ×3 (06:29→21:21)
--- NOTE | 2023-06-01 07:05 | PC.NURSE ---
The patient called and advised nursing that she would be taking her home medications because she can't wait an hour and that she can tell she is about to kick into afib. Myself and the CCT Daxa went in to attempt to convince the patient not to take it. She was very firm and took the meds despite being advised that it is against hospital policy and potentially harmful. Meds taken were reported to be sotalol 120mg and Diltiazem 240mg from her purse.
[2023-06-01 08:17] LABS: INR 5.1
--- NOTE | 2023-06-01 08:58 | PCPTNOTE ---
The patient treatment was not able to be completed on 06/01/2023 due to patient out of room. Will plan to continue treatment per plan of care.
[2023-06-01] MEDS: HEPARIN SODIUM 1,000 UNITS/ML VIAL 1000 UNITS IV PUSH (09:10)
[2023-06-01] MEDS: SODIUM CHLORIDE 0.9% IV 1,000 ML 999 ML IV CONT ×2 (09:12)
[2023-06-01] MEDS: HEPARIN SODIUM 1,000 UNITS/ML VIAL 500 UNITS IV PUSH ×2 (09:13→09:14)
[2023-06-01 09:21] LABS: Glucose Point of Care 294 mg/dl (65-105)
--- NOTE | 2023-06-01 10:48 | PM.IMPN ---
Progress Note: A&P Assessment and Plan (1) Atrial fibrillation: Code(s): I48.91 - Unspecified atrial fibrillation Status: Chronic Assessment and Plan: Appreciate cardiology input. Per Cardiology note from yesterday: Paroxysmal atrial fibrillation on IV amiodarone now for several days.? He remains in atrial fibrillation with rate generally in the low 100's.? Since he is undergoing a living donor kidney transplant next month, preference would be to restore sinus rhythm.? As such, plan is to proceed with cardioversion tomorrow with anesthesia.? He does not require CHERYL as he is chronically anticoagulated.? NPO after midnight in anticipation of this procedure tomorrow. 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 Will discuss with Cardiology regarding stopping amiodarone. (3) ESRD (end stage renal disease) on dialysis: Code(s): N18.6 - End stage renal disease; Z99.2 - Dependence on renal dialysis Status: Acute Assessment and Plan: The patient has end-stage renal disease. This is most likely due to diabetes and hypertension. Nephrology on board. Patient getting dialysis (4) HTN (hypertension): Code(s): I10 - Essential (primary) hypertension Status: Chronic Assessment and Plan: The patient has hypertension. His blood pressure has risen a bit. Now ranging about 100-120. His echo in January looked pretty good. TSH is a little low. T4 is slightly high. I will let hospitalists evaluate this. Cortisol levels are good. (5) Urinary tract infection: Qualifiers: Hematuria presence: without hematuria Urinary tract infection type: acute cystitis Qualified Code(s): N30.00 - Acute cystitis without hematuria Code(s): N39.0 - Urinary tract infection, site not specified Status: Acute Assessment and Plan: Blood cultures are negative. Urine cultures show zabala sensitive E coli He is on p.o. 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 States he is doing okay but appears uncomfortable to me Review of Systems Review of Systems: All systems reviewed & are unremarkable except as noted in HPI and below Exam Narrative: GENERAL: Well-appearing, well-nourished HEAD: Normocephalic, atraumatic. EYES: PERRLA and EOMI. ENT: Nares clear, no rhinorrhea or epistaxis.? Mucous membranes dry.? NECK: Supple.? No adenopathy or masses.? CHEST: No respiratory distress. Clear to auscultation. No wheezes rales or rhonchi HEART: Regular rate and rhythm.? No murmur heard.? Normal peripheral pulses. ABDOMEN: Soft, nontender, nondistended, normal active bowel sounds. MSK: RLE: Mild effusion to the right knee.? Mild bruising.? Moderate tenderness throughout the knee joint.? Mild tenderness to the anterior tibia distally.? No warmth or erythema.? No lesions or drainage. LLE: Benign SKIN: Warm, dry, mild bruising lower extremity. NEURO: Alert, No focal motor deficits PSYCH: Normal mood and affect. Objective Data Vital Signs Vital Signs: Vital Signs - 24 hr 05/31/23 12:00 05/31/23 12:00 05/31/23 14:00 Temperature Pulse Rate 112 H 131 H Respiratory Rate Blood Pressure Pulse Oximetry 93 Oxygen Delivery Nasal Cannula
[2023-06-01] MEDS: EPOETIN ALFA-EPBX 4,000 UNITS/ML VIAL 8000 UNITS IV PUSH (11:00)
[2023-06-01] MEDS: EPOETIN ALFA-EPBX 2,000 UNITS/ML VIAL 2000 UNITS IV PUSH (11:01)
[2023-06-01] MEDS: VANCOMYCIN 1,000 MG/NS 250 ML BAG 250 MG IVPB (11:01)
--- NOTE | 2023-06-01 11:40 | PM.PNCARD ---
Progress Note: A&P Assessment and Plan (1) Atrial fibrillation: Code(s): I48.91 - Unspecified atrial fibrillation Status: Chronic Assessment and Plan: Patient is in atrial fibrillation but will not do a cardioversion today the patient is already scheduled for a living donor renal transplant in less than 4 weeks. Therefore, I should not perform a cardioversion to restore sinus rhythm on him since he will not be able to complete his typical duration of recommended anticoagulation following cardioversion. He also has evidence of hyperthyroidism which may be related to amiodarone use. Will discontinue amiodarone and start him on some metoprolol for rate control starting at 25 mg p.o. b.i.d.. 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 (2) Supratherapeutic INR: Code(s): R79.1 - Abnormal coagulation profile Status: Acute Assessment and Plan: Will hold warfarin today as his INR is greater than 5. No active bleeding issues (3) ESRD (end stage renal disease) on dialysis: Code(s): N18.6 - End stage renal disease; Z99.2 - Dependence on renal dialysis Status: Acute (4) HTN (hypertension): Code(s): I10 - Essential (primary) hypertension Status: Chronic Assessment and Plan: Generally controlled Subjective Date/time seen: 06/01/23 11:40 Interval history: 73-year-old with complaining of fatigue. Date of service 06/01/2023: No chest pain, shortness of breath. Appears confused today. Seen in dialysis Review of Systems Constitutional: Constitutional: Denies body ache(s) ENT: Reports Normal hearing present Cardiovascular: Cardiovascular: Denies chest pain Respiratory: Respiratory: Denies dyspnea Gastrointestinal: Gastrointestinal: Denies abdominal pain Psychiatric: Psychiatric: Reports confusion Hematologic/Lymphatic: Hematologic/Lymphatic: Denies easy bleeding Exam Narrative: Appears older than stated age Const: General: comfortable Other: Well-developed well-nourished white male appears older than his stated age he is alert and responsive but is somewhat delirious HENMT: Mouth: Yes moist mucous membranes Eyes: Sclera: sclerae normal Neck: Neck: supple and no JVD Other: Carotid pulses bilaterally are unremarkable Resp: Effort & Inspection: normal respiratory effort Auscultation: clear to auscultation bilaterally Other: Breath sounds are grossly clear examination is somewhat difficult as he can not sit up for posterior auscultation Cardio: Rate: tachycardic Rhythm: abnormal rhythm irregularly irregular GI: Auscultation: normal bowel sounds Skin: General skin exam: normal color Neuro: Other: Alert and oriented x3 Extrem: Other: Adequate perfusion distally Objective Data Vital Signs Vital Signs: Vital Signs - 24 hr 05/31/23 12:00 05/31/23 12:00 05/31/23 14:00 Temperature Pulse Rate 112 H 131 H Respiratory Rate Blood Pressure Pulse Oximetry 93 Oxygen Delivery Nasal Cannula Oxygen Flow Rate 2 05/31/23 16:00 05/31/23 16:00 05/31/23 16:00 Temperature 36.4 C Pulse Rate 113 H 149 H Respiratory Rate 20 Blood Pressure 114/65 Pulse Oximetry 98 100 Oxygen Delivery Nasal Cannula Oxygen Flow Rate 2 05/31/23 18:00 05/31/23 20:39 05/31/23 21:42 Temperature 36.2 C L Pulse Rate 121 H 127 H Respiratory Rate 18 Blood Pressure 152/62 H 104/47 L Pulse Oximetry 97 Oxygen Delivery Oxygen Flow Rate 05/31/23 20:00 05/31/23 22:51 05/31/23 23:26 Temperature 36.3 C L Pulse Rate 85 96 Respiratory Rate 18 18 Blood Pressure 101/66 Pulse Oximetry 97 97 96 Oxygen Delivery Nasal Cannula Autopap Oxygen Flow Rate 2 05/31/23 20:00 05/31/23 22:00 06/01/23 00:00 Temperature
--- NOTE | 2023-06-01 13:21 | PM.PNNEP ---
Progress Note: A&P Assessment and Plan (1) ESRD (end stage renal disease) on dialysis: Code(s): N18.6 - End stage renal disease; Z99.2 - Dependence on renal dialysis Status: Acute Assessment and Plan: The patient has end-stage renal disease. This is most likely due to diabetes and hypertension. dialysis is underway. Volume status looks okay. Taking a small amount of fluid off. His potassium and bicarbonate are okay. (2) Acute right-sided low back pain with right-sided sciatica: Code(s): M54.41 - Lumbago with sciatica, right side Status: Acute Assessment and Plan: Patient has sciatica with right leg weakness. He is being evaluated for this. His pain is better. (3) HTN (hypertension): Code(s): I10 - Essential (primary) hypertension Status: Chronic Assessment and Plan: The patient has hypertension. His blood pressure Doing well in the 120s. (4) Urinary tract infection: Qualifiers: Hematuria presence: without hematuria Urinary tract infection type: acute cystitis Qualified Code(s): N30.00 - Acute cystitis without hematuria Code(s): N39.0 - Urinary tract infection, site not specified Status: Acute Assessment and Plan: UTI being treated with Augmentin (5) DM2 (diabetes mellitus, type 2): Code(s): E11.9 - Type 2 diabetes mellitus without complications Status: Acute Assessment and Plan: Management per hospitalists (6) Erythropoietin deficiency anemia: Code(s): D63.1 - Anemia in chronic kidney disease Status: Acute Assessment and Plan: Hemoglobin 10.2. He is getting Epogen epogen with dialysis (7) Renal osteodystrophy: Code(s): N25.0 - Renal osteodystrophy Status: Acute Assessment and Plan: phosphorus level is down to 4.8. He is on sevelamer 1600mg with meals. (8) Encephalopathy: Code(s): G93.40 - Encephalopathy, unspecified Status: Acute Assessment and Plan: Mental status waxes and wanes. on no suspicious medications. Ammonia level normal. CT brain unremarkable. Etiology unclear. Will let hospitalists evaluate this further Subjective Date/time seen: 06/01/23 13:21 Interval history: Erma is lying in bed. he is in dialysis and tolerating it well. He was seen at 10:10 a.m.. Blood pressure is doing pretty well. He is going for a CHERYL today so may have to come off early. Where being conservative with fluid removal today because we do not want to drop his pressure before the procedure. He is a bit confused today. Exam Narrative: WDWN confused male in NAD skin no rash or subQ nodules head ncat lungs clear bilaterally cor reg no rub or gallop abd BS+ nontender and soft ext no edema or cyanosis. Objective Data Vital Signs Vital Signs: Vital Signs - 24 hr 05/31/23 14:00 05/31/23 16:00 05/31/23 16:00 Temperature 97.6 F Pulse Rate 131 H 113 H Respiratory Rate 20 Blood Pressure 114/65 Pulse Oximetry 98 100 Oxygen Delivery Nasal Cannula Oxygen Flow Rate 2 05/31/23 16:00 05/31/23 18:00 05/31/23 20:39 Temperature 97.2 F L Pulse Rate 149 H 121 H 127 H Respiratory Rate 18 Blood Pressure 152/62 H Pulse Oximetry 97 Oxygen Delivery Oxygen Flow Rate 05/31/23 21:42 05/31/23 20:00 05/31/23 22:51 Temperature Pulse Rate 85 Respiratory Rate 18 Blood Pressure 104/47 L Pulse Oximetry 97 97 Oxygen Delivery Nasal Cannula Autopap Oxygen Flow Rate 2 05/31/23 23:26 05/31/23 20:00 05/31/23 22:00 Temperature 97.3 F L Pulse Rate 96 122 H 106 H Respiratory Rate 18 Blood Pressure 101/66 Pulse Oximetry 96 Oxygen Delivery Oxygen Flow Rate 06/01/23 00:00 06/01/23 00:00 06/01/23 01:25 Temperature Pulse Rate 113 H 88 Respiratory Rate 18 Blood Pressure Pulse Oximetry 96 96 Oxygen Delivery Autopap Autopap Oxygen Flow Rate
[2023-06-01] MEDS: SEVELAMER CARBONATE 800 MG TABLET 1600 MG PO ×2 (13:46→18:17)
[2023-06-01 13:50] LABS: Glucose Point of Care 131 mg/dl (65-105)
[2023-06-01] MEDS: CITALOPRAM HYDROBROMIDE 20 MG TABLET PO (14:53)
[2023-06-01] MEDS: ceFAZolin 1 GM/NS 50 ML 1 GM/50 ML BAG IVPB (14:54)
[2023-06-01 17:57] LABS: Glucose Point of Care 151 mg/dl (65-105)
[2023-06-01] MEDS: ERGOCALCIFEROL 50,000 UNITS CAPSULE 50000 UNITS PO (18:17)
[2023-06-01 20:11] LABS: Glucose Point of Care 245 mg/dl (65-105)
[2023-06-01] MEDS: ATORVASTATIN 40 MG TABLET PO (21:20)
[2023-06-01] MEDS: METOPROLOL TARTRATE 25 MG TABLET PO (21:21)
[2023-06-01] MEDS: INSULIN ASPART (*BKC) 100 UNITS/ML SUB-Q (21:21)
[2023-06-01] MEDS: TAMSULOSIN HCL 0.4 MG CAPSULE PO (21:21)
[2023-06-01] MEDS: FINASTERIDE 5 MG TABLET PO (21:21)
[2023-06-02] VITALS (14 sets, daily range): BP systolic 92–112; BP diastolic 48–88; PULSE 79–120; RESP 16–24; TEMP 36.4–37.2; O2SAT 86–96
[2023-06-02 04:53] LABS: INR 4.9; Prothrombin Time 50.1 Seconds (11.1-14.7)
[2023-06-02 05:18] LABS: Anion Gap 11 mmol/L (8-16); Blood Urea Nitrogen 57 mg/dL (9-20); Calcium 8.3 mg/dL (8.4-10.2); Carbon Dioxide 33 mmol/L (22-30); Chloride 93 mmol/L (98-107); Estimated CRCL calculation 18 ml/min; Estimated Glomerular Filt Rate 15; Glucose 279 mg/dL (65-110); Phosphorus 4.3 mg/dL (2.5-4.5); Potassium 3.9 mmol/L (3.4-5.0); Sodium 137 mmol/L (137-145)
[2023-06-02 08:02] LABS: Glucose Point of Care 267 mg/dl (65-105)
--- NOTE | 2023-06-02 08:35 | PM.IMPN ---
Progress Note: A&P Assessment and Plan (1) Atrial fibrillation: Code(s): I48.91 - Unspecified atrial fibrillation Status: Chronic Assessment and Plan: Appreciate cardiology input. Per Cardiology note from yesterday: Paroxysmal atrial fibrillation on IV amiodarone now for several days.? He remains in atrial fibrillation with rate generally in the low 100's.? Since he is undergoing a living donor kidney transplant next month, preference would be to restore sinus rhythm.? As such, plan is to proceed with cardioversion tomorrow with anesthesia.? He does not require CHERYL as he is chronically anticoagulated.? NPO after midnight in anticipation of this procedure tomorrow. 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 up to Cardiology evaluation regarding stopping amiodarone. (3) ESRD (end stage renal disease) on dialysis: Code(s): N18.6 - End stage renal disease; Z99.2 - Dependence on renal dialysis Status: Acute Assessment and Plan: The patient has end-stage renal disease. This is most likely due to diabetes and hypertension. Nephrology on board. Patient getting dialysis (4) HTN (hypertension): Code(s): I10 - Essential (primary) hypertension Status: Chronic Assessment and Plan: The patient has hypertension. His blood pressure has risen a bit. Now ranging about 100-120. His echo in January looked pretty good. TSH is a little low. T4 is slightly high. I will let hospitalists evaluate this. Cortisol levels are good. (5) Urinary tract infection: Qualifiers: Hematuria presence: without hematuria Urinary tract infection type: acute cystitis Qualified Code(s): N30.00 - Acute cystitis without hematuria Code(s): N39.0 - Urinary tract infection, site not specified Status: Acute Assessment and Plan: Blood cultures are negative. Urine cultures show zabala sensitive E coli He is on p.o. Augmentin now (6) DM2 (diabetes mellitus, type 2): Code(s): E11.9 - Type 2 diabetes mellitus without complications Status: Acute Assessment and Plan: Sliding scale insulin with Accu-Cheks AC and HS (7) Erythropoietin deficiency anemia: Code(s): D63.1 - Anemia in chronic kidney disease Status: Acute Assessment and Plan: He is getting Epogen epogen with dialysis Subjective Date/time seen: 06/02/23 08:35 Interval history: pt has no new issues or events o/n no sob and afeb. 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 Exam Narrative: GENERAL: Well-appearing, well-nourished HEAD: Normocephalic, atraumatic. EYES: PERRLA and EOMI. ENT: Nares clear, no rhinorrhea or epistaxis.? Mucous membranes dry.? NECK: Supple.? No adenopathy or masses.? CHEST: No respiratory distress. Clear to auscultation. No wheezes rales or rhonchi HEART: Regular rate and rhythm.? No murmur heard.? Normal peripheral pulses. ABDOMEN: Soft, nontender, nondistended, normal active bowel sounds. MSK: RLE: Mild effusion to the right knee.? Mild bruising.? Moderate tenderness throughout the knee joint.? Mild tenderness to the anterior tibia distally.? No warmth or erythema.? No lesions or drainage. LLE: Benign SKIN: Warm, dry, mild bruising lower extremity. NEURO: Alert, No focal motor deficits PSYCH: Normal mood and affect. Objective Data Vital Signs Vital Signs: Vital Signs - 24 hr 06/01/23 09:04 06/01/23 09:20 06/01/23 09:40 Temperature Pulse Rate 92 110 H 90 Respiratory Rate Blood Pressure 101/68 106/62 112/58 L Pulse Oximetry Oxygen Delivery Oxygen Flow Rate Fraction of Inspired Oxygen 06/01/23 10:00 0
[2023-06-02] MEDS: METOPROLOL TARTRATE 25 MG TABLET PO ×2 (10:06→21:16)
[2023-06-02] MEDS: CITALOPRAM HYDROBROMIDE 20 MG TABLET PO (10:07)
--- NOTE | 2023-06-02 10:45 | PM.PNCARD ---
Progress Note: A&P Assessment and Plan (1) Atrial fibrillation: Code(s): I48.91 - Unspecified atrial fibrillation Status: Chronic Assessment and Plan: Heart rate is reasonably controlled on metoprolol. Continue metoprolol tartrate 25 mg p.o. b.i.d.. Amiodarone was discontinued yesterday because of hyperthyroidism. Will not do a cardioversion as the patient is already scheduled for a living donor renal transplant in less than 4 weeks. Therefore, I should not perform a cardioversion to restore sinus rhythm on him since he will not be able to complete his typical duration of recommended anticoagulation following cardioversion. (2) Supratherapeutic INR: Code(s): R79.1 - Abnormal coagulation profile Status: Acute Assessment and Plan: INR still supratherapeutic but trending down to 4.9 today. Continue to hold warfarin. No active bleeding issues (3) ESRD (end stage renal disease) on dialysis: Code(s): N18.6 - End stage renal disease; Z99.2 - Dependence on renal dialysis Status: Acute (4) HTN (hypertension): Code(s): I10 - Essential (primary) hypertension Status: Chronic Assessment and Plan: Generally controlled Subjective Date/time seen: 06/02/23 10:45 Interval history: 73-year-old with complaining of fatigue. Date of service 06/01/2023: No chest pain, shortness of breath. Appears confused today. Seen in dialysis Date of service 06/02/2023: Still confused but more conversant and awake today. Denies any chest pain or shortness of breath Review of Systems Review of Systems: All systems reviewed & are unremarkable except as noted in HPI and below Constitutional: Constitutional: Denies body ache(s) ENT: Reports Normal hearing present Cardiovascular: Cardiovascular: Denies chest pain and Denies dyspnea Respiratory: Respiratory: Denies dyspnea Gastrointestinal: Gastrointestinal: Denies abdominal pain Neurologic: Reports Normal hearing present and Reports confusion Psychiatric: Psychiatric: Reports confusion Hematologic/Lymphatic: Hematologic/Lymphatic: Denies easy bleeding Exam Narrative: Appears older than stated age Const: General: comfortable and confusion Orientation/consciousness: confusion Other: Well-developed well-nourished white male appears older than his stated age he is alert and responsive but is somewhat delirious HENMT: Mouth: Yes moist mucous membranes Eyes: Sclera: sclerae normal Neck: Neck: supple and no JVD Other: Carotid pulses bilaterally are unremarkable Resp: Effort & Inspection: normal respiratory effort Auscultation: clear to auscultation bilaterally Other: Breath sounds are grossly clear examination is somewhat difficult as he can not sit up for posterior auscultation Cardio: Rate: regular rate Rhythm: abnormal rhythm irregularly irregular GI: Auscultation: normal bowel sounds Skin: General skin exam: normal color Neuro: General: confusion Cranial nerves: Yes Normal hearing present Other: Alert and oriented x3 Extrem: Other: Adequate perfusion distally Objective Data Vital Signs Vital Signs: Vital Signs - 24 hr 06/01/23 11:00 06/01/23 11:20 06/01/23 11:40 Temperature Pulse Rate 85 102 H 120 H Respiratory Rate Blood Pressure 99/41 L 95/67 L 117/99 H Pulse Oximetry Oxygen Delivery Oxygen Flow Rate Fraction of Inspired Oxygen 06/01/23 12:00 06/01/23 12:20 06/01/23 12:43 Temperature Pulse Rate 55 L 101 H 98 Respiratory Rate Blood Pressure 107/43 L 90/58 L 123/95 H Pulse Oximetry Oxygen Delivery Oxygen Flow Rate Fraction of Inspired Oxygen 06/01/23 13:16 06/01/23 12:00 06/01/23 12:00 Temperature 36.7 C Pulse Rate 94 117 H Respiratory Rate 20 Blood Pressure 120/93 H Pulse Oximetry 93 Oxygen Delivery Nasal Cannula Oxygen Flow Rate 2 Fraction of Inspired Oxygen 06/01/23 14:00 07
[2023-06-02 12:06] LABS: Glucose Point of Care 257 mg/dl (65-105)
[2023-06-02] MEDS: INSULIN ASPART (*BKC) 100 UNITS/ML SUB-Q ×3 (13:11→21:18)
[2023-06-02] MEDS: SEVELAMER CARBONATE 800 MG TABLET 1600 MG PO ×2 (13:12→17:29)
--- NOTE | 2023-06-02 13:35 | PM.PNNEP ---
Progress Note: A&P Assessment and Plan (1) ESRD (end stage renal disease) on dialysis: Code(s): N18.6 - End stage renal disease; Z99.2 - Dependence on renal dialysis Status: Acute Assessment and Plan: The patient has end-stage renal disease. This is most likely due to diabetes and hypertension. Due for dialysis tomorrow. Volume status looks okay. His potassium and bicarbonate are okay. (2) Acute right-sided low back pain with right-sided sciatica: Code(s): M54.41 - Lumbago with sciatica, right side Status: Acute Assessment and Plan: Patient has sciatica with right leg weakness. He is being evaluated for this. His pain is better. (3) HTN (hypertension): Code(s): I10 - Essential (primary) hypertension Status: Chronic Assessment and Plan: The patient has hypertension. Systolic is running between 90 and 120. (4) Urinary tract infection: Qualifiers: Hematuria presence: without hematuria Urinary tract infection type: acute cystitis Qualified Code(s): N30.00 - Acute cystitis without hematuria Code(s): N39.0 - Urinary tract infection, site not specified Status: Acute Assessment and Plan: UTI being treated with Augmentin (5) DM2 (diabetes mellitus, type 2): Code(s): E11.9 - Type 2 diabetes mellitus without complications Status: Acute Assessment and Plan: Management per hospitalists (6) Erythropoietin deficiency anemia: Code(s): D63.1 - Anemia in chronic kidney disease Status: Acute Assessment and Plan: Hemoglobin 10.2. He is getting Epogen epogen with dialysis (7) Renal osteodystrophy: Code(s): N25.0 - Renal osteodystrophy Status: Acute Assessment and Plan: phosphorus level is down to 4.3. He is on sevelamer 1600mg with meals. (8) Encephalopathy: Code(s): G93.40 - Encephalopathy, unspecified Status: Acute Assessment and Plan: Mental status waxes and wanes. on no suspicious medications. Ammonia level normal. CT brain unremarkable. Etiology unclear. Will let hospitalists evaluate this further. Subjective Date/time seen: 06/02/23 13:35 Interval history: Erma is lying in bed. He is flat in bed and his eyes are closed. He is not very interactive. Exam Narrative: WDWN confused male in NAD skin no rash or subQ nodules head ncat lungs clear to auscultation cor reg no rub or gallop abd BS+ nontender and soft ext no edema Objective Data Vital Signs Vital Signs: Vital Signs - 24 hr 06/01/23 14:00 06/01/23 14:10 06/01/23 16:00 Temperature 97.9 F 98.3 F Pulse Rate 123 H 115 H 115 H Respiratory Rate 20 20 Blood Pressure 90/53 L 110/61 Pulse Oximetry 93 96 Oxygen Delivery Oxygen Flow Rate Fraction of Inspired Oxygen 06/01/23 16:00 06/01/23 16:00 06/01/23 18:00 Temperature Pulse Rate 113 H 117 H Respiratory Rate Blood Pressure Pulse Oximetry 96 Oxygen Delivery Nasal Cannula Oxygen Flow Rate 2 Fraction of Inspired Oxygen 06/01/23 20:14 06/01/23 21:21 06/01/23 20:00 Temperature 97.1 F L Pulse Rate 119 H 90 Respiratory Rate 18 Blood Pressure 110/62 Pulse Oximetry 96 96 Oxygen Delivery Nasal Cannula Oxygen Flow Rate 2 Fraction of Inspired Oxygen 06/02/23 00:00 06/01/23 23:00 06/02/23 00:00 Temperature 99 F Pulse Rate 102 H 83 Respiratory Rate 22 H 30 H Blood Pressure 112/58 L Pulse Oximetry 96 98 96 Oxygen Delivery Autopap Nasal Cannula Oxygen Flow Rate 2 Fraction of Inspired Oxygen 06/01/23 20:00 06/02/23 00:00 06/01/23 23:00 Temperature Pulse Rate 100 79 Respiratory Rate Blood Pressure Pulse Oximetry 93 Oxygen Delivery Nasal Cannula Oxygen Flow Rate 2 Fraction of Inspired Oxygen 06/02/23 04:00 06/02/23 04:00 06/02/23 04:00 Temperature 98 F Pulse Rate 102 H 92 Respiratory
[2023-06-02 16:01] LABS: Glucose Point of Care 286 mg/dl (65-105)
[2023-06-02] MEDS: ceFAZolin 1 GM/NS 50 ML 1 GM/50 ML BAG IVPB (16:16)
[2023-06-02] MEDS: rOPINIRole HCL 0.25 MG TABLET PO ×2 (16:17→21:16)
[2023-06-02 19:37] LABS: Glucose Point of Care 294 mg/dl (65-105)
[2023-06-02] MEDS: ATORVASTATIN 40 MG TABLET PO (21:16)
[2023-06-02] MEDS: FINASTERIDE 5 MG TABLET PO (21:16)
[2023-06-02] MEDS: TAMSULOSIN HCL 0.4 MG CAPSULE PO (21:18)
[2023-06-03] VITALS (25 sets, daily range): BP systolic 86–167; BP diastolic 48–139; PULSE 67–141; RESP 15–20; TEMP 36.3–37; O2SAT 91–95
--- NOTE | 2023-06-03 07:06 | PC.NURSE ---
Paper documentation exists on this patient due to [facility] downtime on 06/03/23 from [id number] .
[2023-06-03 08:07] LABS: Glucose Point of Care 262 mg/dl (65-105)
--- NOTE | 2023-06-03 10:23 | PCPTNOTE ---
Attempted to see patient for PT, however patient was out of the room for dialysis.
--- NOTE | 2023-06-03 10:47 | PM.IMPN ---
Progress Note: A&P Assessment and Plan (1) Atrial fibrillation: Code(s): I48.91 - Unspecified atrial fibrillation Status: Chronic Assessment and Plan: Appreciate cardiology input. Heart rate is reasonably controlled on metoprolol.? Continue metoprolol tartrate 25 mg p.o. b.i.d..? Amiodarone was discontinued because of hyperthyroidism.? Milk Route Deliverer will not do a cardioversion as the patient is already scheduled for a living donor renal transplant in less than 4 weeks, should not perform a cardioversion to restore sinus rhythm on him since he will not be able to complete his typical duration of recommended anticoagulation following cardioversion. 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 Milk Route Deliverer stopped amiodarone. Will follow-up TSH and free T4 (3) ESRD (end stage renal disease) on dialysis: Code(s): N18.6 - End stage renal disease; Z99.2 - Dependence on renal dialysis Status: Acute Assessment and Plan: The patient has end-stage renal disease. This is most likely due to diabetes and hypertension. Nephrology on board. Patient getting dialysis (4) HTN (hypertension): Code(s): I10 - Essential (primary) hypertension Status: Chronic Assessment and Plan: The patient has hypertension. His echo in January looked pretty good. Currently blood pressure is soft None on hypertension medication (5) Urinary tract infection: Qualifiers: Hematuria presence: without hematuria Urinary tract infection type: acute cystitis Qualified Code(s): N30.00 - Acute cystitis without hematuria Code(s): N39.0 - Urinary tract infection, site not specified Status: Acute Assessment and Plan: Blood cultures are negative. Urine cultures show zabala sensitive E coli He is on p.o. Augmentin now (6) DM2 (diabetes mellitus, type 2): Code(s): E11.9 - Type 2 diabetes mellitus without complications Status: Acute Assessment and Plan: Sliding scale insulin with Accu-Cheks AC and HS (7) Erythropoietin deficiency anemia: Code(s): D63.1 - Anemia in chronic kidney disease Status: Acute Assessment and Plan: He is getting Epogen epogen with dialysis (8) Acute encephalopathy: Code(s): G93.40 - Encephalopathy, unspecified Status: Acute Assessment and Plan: Patient mental status fluctuates Neck today resulting from uremia, UTI, polypharmacy, dehydration Hold medication with sedative effect Treat UTI Patient underwent dialysis 06/03 Gentle IV fluid normal saline 50 mL/hour, monitor sign and symptom of fluid overload Subjective Date/time seen: 06/03/23 10:47 Interval history: pt has no new issues or events o/n no sob and afeb. Patient is a confused, patient looks dehydrated, dry mucous membrane, blood pressure soft Exam Narrative: GENERAL: Well-appearing, well-nourished HEAD: Normocephalic, atraumatic. EYES: PERRLA and EOMI. ENT: Nares clear, no rhinorrhea or epistaxis.? Mucous membranes dry.? NECK: Supple.? No adenopathy or masses.? CHEST: No respiratory distress. Clear to auscultation. No wheezes rales or rhonchi HEART: Regular rate and rhythm.? No murmur heard.? Normal peripheral pulses. ABDOMEN: Soft, nontender, nondistended, normal active bowel sounds. MSK: RLE: Mild effusion to the right knee.? Mild bruising.? Moderate tenderness throughout the knee joint.? Mild tenderness to the anterior tibia distally.? No warmth or erythema.? No lesions or drainage. LLE: Benign SKIN: Warm, dry, mild bruising lower extremity. NEURO: Alert, not orientated x3 today No focal motor deficits PSYCH: Normal mood and affect.
--- NOTE | 2023-06-03 11:06 | PM.PNNEP ---
Progress Note: A&P Assessment and Plan (1) ESRD (end stage renal disease) on dialysis: Code(s): N18.6 - End stage renal disease; Z99.2 - Dependence on renal dialysis Status: Acute Assessment and Plan: The patient has end-stage renal disease. This is most likely due to diabetes and hypertension. Dialysis is underway Volume status looks okay. If anything he might be a little dry. His potassium and bicarbonate are okay. (2) Acute right-sided low back pain with right-sided sciatica: Code(s): M54.41 - Lumbago with sciatica, right side Status: Acute Assessment and Plan: No complaints of pain right now (3) HTN (hypertension): Code(s): I10 - Essential (primary) hypertension Status: Chronic Assessment and Plan: The patient has hypertension. Systolic is running between 90 and 120. (4) Urinary tract infection: Qualifiers: Hematuria presence: without hematuria Urinary tract infection type: acute cystitis Qualified Code(s): N30.00 - Acute cystitis without hematuria Code(s): N39.0 - Urinary tract infection, site not specified Status: Acute Assessment and Plan: UTI being treated with Augmentin (5) DM2 (diabetes mellitus, type 2): Code(s): E11.9 - Type 2 diabetes mellitus without complications Status: Acute Assessment and Plan: Management per hospitalists (6) Erythropoietin deficiency anemia: Code(s): D63.1 - Anemia in chronic kidney disease Status: Acute Assessment and Plan: Hemoglobin 10.2. He is getting Epogen epogen with dialysis (7) Renal osteodystrophy: Code(s): N25.0 - Renal osteodystrophy Status: Acute Assessment and Plan: phosphorus level is down to 4.3. He is on sevelamer 1600mg with meals. (8) Encephalopathy: Code(s): G93.40 - Encephalopathy, unspecified Status: Acute Assessment and Plan: Mental status waxes and wanes. on no suspicious medications. Ammonia level normal. CT brain unremarkable. on no narcotics. Etiology unclear. Discussed with Dr Cleary. Subjective Date/time seen: 06/03/23 11:06 Interval history: Erma is lying in bed. He is flat in bed and his eyes are closed. He answers 1 word questions but that is all. He is on dialysis and tolerating it well. He was seen at 10:10 a.m. not much fluid is being removed. I do not think he is eating very much because of his mental status. He has no swelling in his lungs are clear. Exam Narrative: WDWN confused male in NAD skin no rash or subQ nodules head ncat lungs clear to auscultation cor reg no rub abd BS+ nontender and soft ext no edema or cyanosis Objective Data Vital Signs Vital Signs: Vital Signs - 24 hr 06/02/23 12:00 06/02/23 12:00 06/02/23 16:00 Temperature 97.5 F L 97.6 F Pulse Rate 101 H 120 H Respiratory Rate 24 H 18 Blood Pressure 106/88 92/48 L Pulse Oximetry 95 95 86 L Oxygen Delivery Nasal Cannula Oxygen Flow Rate 2 06/02/23 16:00 06/02/23 12:00 06/02/23 16:00 Temperature Pulse Rate 95 84 Respiratory Rate Blood Pressure Pulse Oximetry 96 Oxygen Delivery Nasal Cannula Oxygen Flow Rate 2 06/02/23 18:00 06/02/23 19:59 06/02/23 20:00 Temperature 97.9 F Pulse Rate 99 100 Respiratory Rate 22 H Blood Pressure 103/54 L Pulse Oximetry 94 94 Oxygen Delivery Nasal Cannula Oxygen Flow Rate 2 06/02/23 21:16 06/02/23 20:00 06/02/23 23:06 Temperature Pulse Rate 111 H 93 Respiratory Rate Blood Pressure Pulse Oximetry 94 Oxygen Delivery Nasal Cannula Oxygen Flow Rate 2 06/02/23 23:10 06/03/23 00:00 06/02/23 23:15 Temperature 97.9 F Pulse Rate 94 95 88 Respiratory Rate 18 22 H Blood Pressure 105/56 L Pulse Oximetry 95 96 Oxygen Delivery Autopap Oxygen Flow Rate 06/03/23 05:48 06/03/23 07:58 06/03/23 08:00 Temperature 97.9 F 97.
[2023-06-03] MEDS: EPOETIN ALFA 10,000 UNITS/ML VIAL 10000 UNITS IV PUSH (11:22)
[2023-06-03] MEDS: METOPROLOL TARTRATE 25 MG TABLET PO (11:30)
[2023-06-03 12:28] LABS: Glucose Point of Care 167 mg/dl (65-105)
--- NOTE | 2023-06-03 14:48 | PCPTNOTE ---
Attempted to see patient for PT, however patient was drowsy and having trouble keeping eyes open. Patient reported he had to go to the bathroom, however patient too drowsy to get up to commode. Assisted patient on bed zabala. Nursing aware.
[2023-06-03] MEDS: ceFAZolin 1 GM/NS 50 ML 1 GM/50 ML BAG IVPB (16:30)
[2023-06-03] MEDS: SODIUM CHLORIDE 0.9% IV 1,000 ML 50 ML IV CONT (16:31)
[2023-06-03 17:45] LABS: Glucose Point of Care 141 mg/dl (65-105)
--- NOTE | 2023-06-07 07:39 | PM.TDS ---
Transfer Discharge Sum: Prov Provider Date of admission: 05/28/23 17:56 Primary care physician: Adri Singh, REFUSE COLLECTOR SUPERVISOR Admitting clinician: Brandt Alberto MD Consults: 05/27/23 13:03 Consult to Physician Routine Comment: Consulting Provider: Mahad Domingo Reason for consultation: ESRD, dialysis M/W/F Has provider been notified: Yes 05/29/23 07:57 Consult to Physician Routine Comment: Consulting Provider: Elie Martin body recall instructor/MD group to consult: cardiology Reason for consultation: afib rvr Has provider been notified: Yes DS: Admitting Diagnosis Discharge Date 06/03/23 Admitting Diagnosis Atrial fibrillation, end-stage renal disease on dialysis, UTI, type 2 diabetes, DS: Discharge Diagnosis Discharge Diagnosis (1) Atrial fibrillation: Code(s): I48.91 - Unspecified atrial fibrillation Status: Chronic Assessment and Plan: Appreciate cardiology input. Heart rate is reasonably controlled on metoprolol.? Continue metoprolol tartrate 25 mg p.o. b.i.d..? Amiodarone was discontinued because of hyperthyroidism.? Tooth Polisher will not do a cardioversion as the patient is already scheduled for a living donor renal transplant in less than 4 weeks, should not perform a cardioversion to restore sinus rhythm on him since he will not be able to complete his typical duration of recommended anticoagulation following cardioversion. 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 Tooth Polisher stopped amiodarone. Will follow-up TSH and free T4 (3) ESRD (end stage renal disease) on dialysis: Code(s): N18.6 - End stage renal disease; Z99.2 - Dependence on renal dialysis Status: Acute Assessment and Plan: The patient has end-stage renal disease. This is most likely due to diabetes and hypertension. Nephrology on board. Patient getting dialysis (4) HTN (hypertension): Code(s): I10 - Essential (primary) hypertension Status: Chronic Assessment and Plan: The patient has hypertension. His echo in January looked pretty good. Currently blood pressure is soft None on hypertension medication (5) Urinary tract infection: Qualifiers: Hematuria presence: without hematuria Urinary tract infection type: acute cystitis Qualified Code(s): N30.00 - Acute cystitis without hematuria Code(s): N39.0 - Urinary tract infection, site not specified Status: Acute Assessment and Plan: Blood cultures are negative. Urine cultures show zabala sensitive E coli He is on p.o. Augmentin now (6) DM2 (diabetes mellitus, type 2): Code(s): E11.9 - Type 2 diabetes mellitus without complications Status: Acute Assessment and Plan: Sliding scale insulin with Accu-Cheks AC and HS (7) Erythropoietin deficiency anemia: Code(s): D63.1 - Anemia in chronic kidney disease Status: Acute Assessment and Plan: He is getting Epogen epogen with dialysis (8) Acute encephalopathy: Code(s): G93.40 - Encephalopathy, unspecified Status: Acute Assessment and Plan: Patient mental status fluctuates Neck today resulting from uremia, UTI, polypharmacy, dehydration Hold medication with sedative effect Treat UTI Patient underwent dialysis 06/03 Gentle IV fluid normal saline 50 mL/hour, monitor sign and symptom of fluid overload Transfer Discharge Sum: Med Medications Active and Home Medications: Home Medications amiodarone 200 mg tablet 200 mg PO HS 12/11/19 [History Confirmed 05/27/23] atorvastatin 40 mg tablet 40 mg PO HS 12/11/19 [History Confirmed 05/27/23] insulin lispro 100 unit/mL subcutane
== END 2023-06-03 18:55 | disposition short-term general hospital (02) | DRG 308 ==
LOC: ANHED 13:01 → ANH3MEDSUR 14:35 → ANHIMU 05-28 22:37
PROVIDERS: Internal Medicine; Internal Medicine Nephrology; Nurse Practitioner; Admitting Provider Family Medicine; Emergency Provider Physician Assistant; PCP Nurse Practitioner Family; Visit Provider Hospitalist
DX: I48.0 Paroxysmal atrial fibrillation (principal); N18.6 End stage renal disease; N39.0 Urinary tract infection, site not specified; I12.0 Hypertensive chronic kidney disease with stage 5 chronic kidney disease or end stage renal disease; G93.49 Other encephalopathy; D63.1 Anemia in chronic kidney disease; G47.33 Obstructive sleep apnea (adult) (pediatric); N25.0 Renal osteodystrophy; E11.22 Type 2 diabetes mellitus with diabetic chronic kidney disease; B96.20 Unspecified Escherichia coli [E. coli] as the cause of diseases classified elsewhere; E05.90 Thyrotoxicosis, unspecified without thyrotoxic crisis or storm; E86.0 Dehydration; T46.2X5A Adverse effect of other antidysrhythmic drugs, initial encounter; E11.42 Type 2 diabetes mellitus with diabetic polyneuropathy; E78.5 Hyperlipidemia, unspecified; Z53.09 Procedure and treatment not carried out because of other contraindication; G40.909 Epilepsy, unspecified, not intractable, without status epilepticus; R79.1 Abnormal coagulation profile; R29.6 Repeated falls; F41.8 Other specified anxiety disorders; M54.41 Lumbago with sciatica, right side; N40.0 Benign prostatic hyperplasia without lower urinary tract symptoms; Z99.2 Dependence on renal dialysis; Z95.5 Presence of coronary angioplasty implant and graft; Z95.1 Presence of aortocoronary bypass graft; I25.2 Old myocardial infarction
CPT/HCPCS: 36415; 36600; 70450; 70551; 73562; 73590; 80053; 80069; 80202; 81001; 82140; 82533; 82805; 82948; 83036; 83605; 83735; 84100; 84439; 84443; 85025; 85610; 85730; 86706; 87040; 87077; 87086; 87088; 87186; 87340; 87493; 93005; 96374; 96375; 97162; 97530; 99285; A9270; G0257; G0378; J0282; J0690; J0696; J1630; J1644; J1815; J2060; J3370; J7030; P9047; Q4081; Q5105

== ENCOUNTER 2023-09-08 13:11 | Inpatient (IN) | payer MEDICARE, SELFPAY ==
[2023-09-08] VITALS (42 sets, daily range): BP systolic 95–155; BP diastolic 53–113; PULSE 61–142; RESP 14–35; TEMP 33.3–36.4; O2SAT 92–100; BMI 22.3
--- NOTE | 2023-09-08 | ECG_ITS ---
Measurements Intervals [place] Rate: 128 P: [place]: 0 QRS: 28 QRSD: 115 T: -28 QT: 360 QTc: 526 Interpretive Statements ATRIAL FLUTTER/TACHYCARDIA WITH RAPID VENTRICULAR RESPONSE LOW QRS VOLTAGE IN EXTREMITY LEADS [QRS DEFLECTION < 0.5 mV IN LIMB LEADS] MODERATE T-WAVE ABNORMALITY, CONSIDER INFERIOR ISCHEMIA [-0.1+ mV T WAVE IN II/aVF] COMPARED TO ECG 05/28/2023 21:34:05 ATRIAL FLUTTER REPLACES ATRIAL FIBRILLATION Electronically Signed On 09-09-2023 7:27:14 CDT by Elie Martin M.D.
--- NOTE | ~2023-09-08 | XR_ITS ---
EXAMINATION: XR abdomen gastric tube insert DATE: 09/15/2023 10:52 INDICATION: Nasogastric tube placement. TECHNIQUE: A semierect view of the abdomen was obtained. COMPARISON: CT abdomen and pelvis 09/15/2023 FINDINGS: The nasogastric tube tip is in the stomach. Median sternotomy wires are noted. There is dis tention of the stomach, small bowel, and large bowel. IMPRESSION: 1. Nasogastric tube tip in the stomach. 2. Distention of the stomach and bowel, which may be secondary to adynamic ileus or less likely anal obstruction.. Reviewed, dictated and finalized at location E. IMPRESSION: 1. Nasogastric tube tip in the stomach. 2. Distention of the stomach and bowel, which may be secondary to adynamic ileu s or less likely anal obstruction..
--- NOTE | ~2023-09-08 | CT_ITS ---
EXAMINATION: CT brain wo con DATE: 09/09/2023 13:57 INDICATION: Altered mental status. TECHNIQUE: Computed tomography (CT) of the head was performed without intravenous contrast. The mA wa s adjusted according to patient size. Iterative reconstruction technique was employed. The dose-lengt h product was 605.33 mGy-cm. COMPARISON: Head CT 05/28/2023, brain MRI 06/02/2023 FINDINGS: There are scattered areas of low attenuation in the cerebral white matter. There is no intr acranial hemorrhage, acute infarction, or abnormal intracranial mass lesion. The ventricles are lisa l in size. There are likely changes of ocular lens replacement surgeries. There is a mucous retention cyst in right maxillary sinus. The mastoid air cells are normal. IMPRESSION: 1. Stable mild nonspecific cerebral white matter disease, which likely represents chronic small vesse l ischemic disease. Reviewed, dictated and finalized at location E. IMPRESSION: 1. Stable mild nonspecific cerebral white matter disease, which likely represen ts chronic small vessel ischemic disease.
--- NOTE | ~2023-09-08 | CT_ITS ---
EXAMINATION: CT abdomen pelvis wo con DATE: 09/15/2023 05:26 INDICATION: Vomiting. TECHNIQUE: Computed tomography (CT) of the abdomen and pelvis was performed without intravenous contr ast. Automated exposure control and iterative reconstruction technique were employed. The dose-length product was 1018.24 mGy-cm. COMPARISON: CT abdomen and pelvis 03/03/2023 FINDINGS: The visualized portions of the lung bases demonstrate mild atelectasis. There is bronchiect asis bilaterally. There is mild elevation of right hemidiaphragm. There is a trace right pleural effu mariusz. There is left atrial enlargement of the heart. There are coronary artery calcifications. There are changes of coronary artery bypass grafting. No pericardial effusion. There are calcifications of the aortic valve. The liver and spleen are normal. There are calcifications in the pancreas, consiste nt with chronic pancreatitis. The adrenal glands are normal. There is moderate atrophy of the kidneys . There is a 1.6 cm cyst in right kidney. There is diverticulosis of the colon without evidence of di verticulitis. The colon is distended. The appendix is not visualized. There are multiple dilated loop s of small bowel. The stomach is distended. There are widespread arterial calcifications. There are n o pathologically enlarged lymph nodes. There is no free intraperitoneal fluid. There is severe lumbar spondylosis. There are erosions at L2-L3. Lumbar levoscoliosis is noted. There is severe osteoarthri tis of the hips. IMPRESSION: 1. New erosions at L2-L3, consistent with discitis/osteomyelitis. 2. Dilated stomach and bowel, likely adynamic ileus. Rectal exam is recommended to exclude anal obstr uction. Reviewed, dictated and finalized at location E. IMPRESSION: 1. New erosions at L2-L3, consistent with discitis/osteomyelitis. 2. Dilated stomach and bowel, likely adynamic ileus. Rectal exam is recommended to exclude anal obstruction.
--- NOTE | ~2023-09-08 | CT_ITS ---
EXAMINATION: CT abdomen pelvis wo con DATE: 09/22/2023 12:49 INDICATION: Lower abdominal pain abdomen and pelvis TECHNIQUE: Computed tomography (CT) of the abdomen and pelvis was performed without intravenous contr ast. The dose-length product (DLP) was 1028.73 mGy-cm. Automated exposure control and iterative recon struction technique were employed. COMPARISON: 09/15/2023 FINDINGS: There are small pleural effusions, right greater than left, with associated passive atelect asis in the visualized lung bases. Cardiomegaly is noted. There are changes of coronary artery bypass grafting. The liver, spleen, and adrenal glands are normal. There are changes of cholecystectomy. Pu nctate calcifications of the pancreas are consistent with chronic pancreatitis. There is moderate atr ophy of the kidneys. There is calcified atherosclerosis of the aorta and many of the other arteries. No pathologically enlarged abdominal or pelvic lymph nodes are identified. Previously described stoma ch and small bowel distention has largely resolved. There is persistent moderate distention of the co mya with air-fluid levels. There is no free intraperitoneal gas. There is a small volume of ascites. Discitis with osteomyelitis is again noted at L2-3. There is severe lumbar spondylosis. IMPRESSION: 1. Persistent colonic distention with air-fluid levels which could reflect adynamic ileus. 2. Small pleural effusions with associated passive atelectasis in the visualized lung bases. Reviewed, dictated and finalized at location L. R SLICER IMPRESSION: 1. Persistent colonic distention with air-fluid levels which could reflect adyn amic ileus. 2. Small pleural effusions with associated passive atelectasis in the visualize d lung bases.
--- NOTE | ~2023-09-08 | XR_ITS ---
EXAMINATION: XR chest 2V DATE: 09/21/2023 14:57 INDICATION: Shortness of breath TECHNIQUE: Frontal and lateral views of the chest are obtained COMPARISON: 09/08/2023 FINDINGS: There are airspace opacities of the lung bases and right midlung zone with slight increase. There are small pleural effusions. No pneumothorax is identified. Cardiomegaly is noted. Median ster notomy wires and mediastinal surgical clips are seen, likely from prior coronary artery bypass grafti ng. There is moderate gaseous distention of the colon. IMPRESSION: 1. Small pleural effusions with airspace opacities of the lung bases and right midlung zone, consiste nt with atelectasis versus pneumonia. Reviewed, dictated and finalized at location B. PEDDLER IMPRESSION: 1. Small pleural effusions with airspace opacities of the lung bases and right midlung zone, consistent with atelectasis versus pneumonia.
--- NOTE | ~2023-09-08 | MR_ITS ---
EXAMINATION: MR lumbar spine wo con DATE: 09/18/2023 14:58 INDICATION: Low back pain with osteomyelitis. TECHNIQUE: Magnetic resonance imaging (MRI) of the lumbar spine was performed without intravenous con trast. Sequences included sagittal T2-weighted FSE, sagittal T2-weighted FS FSE, sagittal T1-weighted FSE, and axial T2-weighted FSE. COMPARISON: Lumbar spine CT dated 02/14/[address] abdomen and pelvis dated 09/15/2023 FINDINGS: 17 degrees lumbar levoscoliosis. Unchanged 3 mm retrolisthesis L4 on L5 and L5 on S1. There is homoge neous fluid signal replacing the disc in the widened L2-L3 disc space. There is geographic loss of th e normal T1 hyperintense marrow fat signal throughout the majority of the L2 and L3 vertebral bodies which along with the endplate erosions seen on the more recent CT consistent with discitis and osteom yelitis. Prominent increased fluid signal in the bilateral psoas muscles which may either reactive ed gela or myositis. No evident associated paraspinal or epidural abscess. Unchanged severe disc height l oss at L3-L4 and L4-L5, the former also with increased fluid signal and could not exclude additional early discitis. There is however no evident endplate erosions on prior CT or loss of T1 fat signal in the immediately adjacent bone to suggest additional osteomyelitis. Mild disc height loss at T11-T12 and T12-L1 and moderate disc height loss at L5-S1. The conus medullaris terminates at L1. There is no rmal signal in the caudal spinal cord. Likely postoperative scarring with a few foci of susceptibilit y artifact slightly to left of midline posterior to the lower lumbar spine with left-sided hemilamino tomies at L4-L5 and L5-S1. The following disc levels are specifically discussed: T11-T12: The disc does not extend beyond the endplate margin. There is moderate bilateral facet osteo arthritis. There is minimal bilateral neural foraminal stenosis. There is no central canal stenosis. T12-L1: Annular fissure and small left paracentral disc extrusion with disc material extending 5 mm c audal to the level of the superior endplate of L1. There is mild bilateral facet joint osteoarthritis . There is mild left neural foraminal stenosis. There is mild central canal stenosis. L1-L2: The disc does not extend beyond the endplate margin. There is hypertrophy of the ligamentum flavum. There is mild left and moderate right facet joint ost eoarthritis. There is mild bilateral neural foraminal stenosis. There is minimal central canal stenos is. L2-L3: There is mild bulging posteriorly of the intact peripheral margin of the disc. There is hypert rophy of the ligamentum flavum. There is mild left and moderate right facet joint osteoarthritis. The re is small amount of fluid within the bilateral facet joint spaces which could be reactive or relate d to associated septic arthritis. There is moderate left and moderate to severe right neural foramina l stenosis. There is moderate central canal stenosis. L3-L4: Disc is bulging. There is hypertrophy of the ligamentum flavum. There is moderate left and sev ere right facet joint osteoarthritis. There is moderate to severe left and moderate right neural fora melany stenosis. There is severe central canal stenosis. L4-L5: Posterior disc osteophyte complex with prominent central osteophyte arising from the posterior endplate of L4. There is hypertrophy of the right ligamentum flavum with left-sided hemilaminotomy w ith posterior decompression. There is moderate bilateral facet joint osteoarthritis. There is moderat e right and moderate to severe left neural foraminal stenosis. There is moderate central canal stenos is. L5-S1: Disc is bulging. There is severe bilateral facet joint osteoarthritis. There is a bilateral ne ural foraminal stenosis. Left-sided hemilaminotomy with posterior decompression. There is mild centra l canal stenosis along with narrowing of the lateral rec
--- NOTE | ~2023-09-08 | XR_ITS ---
XR foot LT 2V 09/08/2023 14:03 Indication: Left foot infection Procedure: 3 views left foot Comparison: No prior studies for comparison. Findings: Osteopenia. There is extensive atherosclerosis. Mild polyarticular osteoarthritis. Lisfranc joint intact. There are degenerative calcaneal enthesophytes. No fracture or traumatic malalignment. No evidence for osteomyelitis. Impression: 1: No acute bone or joint abnormality. Reviewed, dictated and finalized at location L. Impression: 1: No acute bone or joint abnormality.
--- NOTE | ~2023-09-08 | MR_ITS ---
EXAMINATION: MR thoracic spine wo con DATE: 09/18/2023 14:57 INDICATION: Low back pain concerning for osteomyelitis. TECHNIQUE: Magnetic resonance imaging (MRI) of the thoracic spine was performed without intravenous c ontrast. Sagittal localizer T1-weighted FSE of the cervicothoracic spine was obtained. Thoracic spine sequences included sagittal T2-weighted FSE, sagittal T1-weighted SE, Sagittal T2-weighted FS FSE, a nd axial T2-weighted FSE. COMPARISON: None FINDINGS: Alignment is normal. Minimal chronic likely physiologic anterior wedging at T10-T12 which is unchange d since abdomen CT dated 10/02/2019. Normal marrow signal. There are bridging osteophytes at multiple levels consistent with diffuse idiopathic skeletal hyperostosis (DISH). Mild disc height loss at T3- T4 through T9-T10 and disc desiccation without disc height loss [id number].Small left paracentral disc protrusion resulting in mild central canal stenosis at T1-T2. Moderate-sized right paracentral disc protrusions at T7-T8, T8-T9 which results in additional mild central canal stenosis with indentation of the right ventral surface of the cord at these levels. Multilevel moderate upper thoracic and mild lower thoracic facet osteoarthritis resulting in mild neural foraminal stenosis a few levels in the upper thoracic spine. There is normal spinal cord signal. Small right pleural effusion. Nonspecific l antione disease with increased signal in the dependent lower lobes. IMPRESSION: 1. Mild thoracic spondylosis. No evident osteomyelitis or other pathologic marrow replacing process. 2. Nonspecific lung disease in the bilateral lower lobes, most likely atelectasis and/or pneumonia wi th small right pleural effusion. Reviewed, dictated and finalized at location A. DRIER TENDER IMPRESSION: 1. Mild thoracic spondylosis. No evident osteomyelitis or other pathologic maico ow replacing process. 2. Nonspecific lung disease in the bilateral lower lobes, most likely atelectas is and/or pneumonia with small right pleural effusion.
--- NOTE | ~2023-09-08 | XR_ITS ---
XR chest 1V portable 09/08/2023 14:03 Indication: Altered mental status Procedure: AP portable chest Comparison: 06/03/2019 Findings: Status post median sternotomy for CABG. Patchy bilateral airspace disease. There is fissura l thickening on the right. Small right pleural effusion. Heart size normal. Impression: 1: Bilateral airspace disease predominantly basilar, suspicious for pneumonia. 2: Small right pleural effusion. 3: Chronic elevation of the right diaphragm. Reviewed, dictated and finalized at location L. Impression: 1: Bilateral airspace disease predominantly basilar, suspicious for pneumonia. 2: Small right pleural effusion. 3: Chronic elevation of the right diaphragm.
--- NOTE | ~2023-09-08 | US_ITS ---
EXAMINATION: US art doppler w lilly CESAR DATE: 09/08/2023 17:16 INDICATION: Discoloration of the left foot TECHNIQUE: Doppler waveforms of the arteries in the bilateral lower limbs as well as a left great toe pressure were obtained. Right great toe pressure and waveforms in the right lower leg were unable to be obtained due to right [id number] amputation. Pressures were not obtained at the brachial forrest nereida were in the lower extremities as negative the patient nor his were able to confirm or deny any prior asbestos surgery or stenting in the extremities. COMPARISON: None. FINDINGS: Biphasic waveforms with brisk systolic upstrokes are seen in the right common femoral and right super ficial femoral arteries. In the left lower limb biphasic waveforms with brisk systolic upstrokes are seen in the left common femoral, superficial femoral, popliteal, posterior tibial and dorsalis pedis arteries. Left great toe pressure of 59 mmHg. IMPRESSION: 1. Limited study as no history was obtained of potential prior vascular stenting to allow for obtaini ng of segmental pressures. Aphasic waveforms seen throughout the arteries of the left lower limb and the arteries of the right thigh with left great toe pressure of 59 mmHg. 2. Cardiac arrhythmia is present. Correlate with EKG. Reviewed, dictated and finalized at location A. IMPRESSION: 1. Limited study as no history was obtained of potential prior vascular stentin g to allow for obtaining of segmental pressures. Aphasic waveforms seen through out the arteries of the left lower limb and the arteries of the right thigh wit h left great toe pressure of 59 mmHg. 2. Cardiac arrhythmia is present. Correlate with EKG.
[2023-09-08] MEDS: LACTATED RINGERS 1,000 ML 999 ML IV CONT (13:40)
--- NOTE | 2023-09-08 13:40 | PC.NURSE ---
pt is restless and cannot currently comprehend staying still for ekg. unable to get accurate ekg at this time.
[2023-09-08 14:10] LABS: Appearance Urine Cloudy (Clear); Bacteria Urine None Seen /hpf; Bilirubin Urine Negative (Negative); Blood Urine 2+ (Negative); Color Urine Dark Yellow (Yellow); Glucose Urine UA Negative (Negative); Ketones Urine Negative (Negative); Leukocyte Esterase Ur 1+ LEU/UL (Negative); Need Manual Microscopic Reviewed; Nitrate Urine Negative (Negative); Non Pathogenic Casts 0-2; Protein Urine 2+ mg/dL (Negative); Specific Grav Ur 1.016 (1.001-1.035); Squamous Epithelial Cell Urine Occasional /hpf (Few); WBC Urine 0-5 /hpf; pH Urine 5.5 (5.0-9.0)
[2023-09-08 14:13] LABS: Add Urine Microscopic? YES
[2023-09-08] MEDS: LORazepam INJ (*CRX) 2 MG/ML VIAL 1 MG IV PUSH (14:26)
[2023-09-08 15:13] LABS: Basophils Absolute Auto 0.1 K/mm3 (0.0-0.1); Basophils Percent Auto 1.2 % (0.2-1.2); Eosinophils Absolute Auto 0.3 K/mm3 (0-0.3); Eosinophils Percent Auto 2.8 % (0-4.4); Hematocrit 36.3 % (42.0-52.0); Hemoglobin 11.1 g/dL (14.0-18.0); Immature Granulocyte Absolute 0.09 K/mm3 (0.00-0.031); Immature Granulocyte Percent A 0.9 % (0-0.5); Lymphocytes Absolute Auto 1.34 K/mm3 (0.9-3.2); Mean Corpuscular HGB Conc 30.6 g/dl (32-36); Mean Corpuscular Hemoglobin 32.2 pg (26-34); Mean Corpuscular Volume 105.2 fl (80-100); Mean Platelet Volume 8.7 fl (7.4-10.4); Monocytes Absolute Auto 0.6 K/mm3 (0.1-0.6); Monocytes Percent Auto 6.3 % (2.6-8.5); Neutrophils Absolute Auto 7.1 K/mm3 (1.3-6.7); Neutrophils Percent Auto 74.8 % (45.5-73.1); Platelet Count Result 374 k/mm3 (150-375); Red Blood Count 3.45 M/mm3 (4.6-6.20); Red Cell Distribution Width 18.2 % (11.5-14.5); White Blood Count 9.5 K/mm3 (4.5-10.0)
[2023-09-08 15:21] LABS: Alanine Aminotransferase 19 U/L (6-50); Alkaline Phosphatase 99 U/L (38-126); Anion Gap 20 mmol/L (8-16); Aspartate Amino Transferase 29 U/L (17-59); Bilirubin,Total 0.7 mg/dL (0.2-1.3); Blood Urea Nitrogen 75 mg/dL (9-20); Calcium 10.6 mg/dL (8.4-10.2); Carbon Dioxide 20 mmol/L (22-30); Chloride 106 mmol/L (98-107); Estimated CRCL calculation 9 ml/min; Estimated Glomerular Filt Rate 7; Glucose 162 mg/dL (65-110); Potassium 3.5 mmol/L (3.4-5.0); Sodium 146 mmol/L (137-145)
[2023-09-08 15:29] LABS: INR 2.2; Prothrombin Time 25.7 Seconds (11.1-14.7)
[2023-09-08 15:31] LABS: Partial Thromboplastin Time 37.3 SECONDS (22.3-36.8)
[2023-09-08 15:33] LABS: Anisocytosis 1+ (NORMAL); Macrocytosis 1+ (NORMAL); Platelet Estimate Adequate (Adequate)
[2023-09-08 15:34] LABS: Ovalocytes 1+ (NORMAL); Schistocytes None Seen (NORMAL)
[2023-09-08 15:48] LABS: Influenza A QL RT-PCR Negative (Negative); Influenza B QL RT-PCR Negative (Negative); RSV RNA, RT-PCR Negative (Negative); SARS-CoV-2 RNA PCR Negative (Negative)
[2023-09-08] MEDS: AZITHROMYCIN 500 MG/NS 250 ML 500 MG/250 ML BAG 250 MG IVPB (17:25)
--- NOTE | 2023-09-08 19:03 | PC.NURSE ---
pt has unstaged bed sore on coccyx. dressing was last changed @1900 09/08.
--- NOTE | 2023-09-08 19:06 | ED.AMS ---
HPI - Altered Mental Status General Chief Complaint: Altered Mental Status Stated Complaint: AMS Time Seen by Provider: 09/08/23 13:15 History of Present Illness HPI narrative: Patient recently been discharged from rehab 2 days ago and went home, since he had been home his has been having a lot of trouble trying to take care of him and he has become more confused and difficult to take care of. Related Data Home Medications Medication Instructions Recorded Confirmed amiodarone 200 mg tablet 200 mg PO HS 12/11/19 05/27/23 atorvastatin 40 mg tablet 40 mg PO HS 12/11/19 05/27/23 insulin lispro 100 unit/mL See Rx Instructions .Route .COMPLEX 12/11/19 05/27/23 subcutaneous solution (Humalog U-100 Insulin) finasteride 5 mg tablet 5 mg PO HS 10/02/20 05/27/23 tamsulosin 0.4 mg capsule 0.4 mg PO HS 10/02/20 05/27/23 citalopram 20 mg tablet 20 mg PO DAILY 03/03/23 05/27/23 sevelamer carbonate 800 mg tablet 800 mg PO TID 03/03/23 05/27/23 warfarin 5 mg tablet 5 mg PO HS 03/03/23 05/27/23 Hectorol 2 mcg IV USEASDIRECTD 05/27/23 05/27/23 Mircera 60 mcg E1LYEXN 05/27/23 05/27/23 ergocalciferol (vitamin D2) 1,250 1,250 unit PO WEEKLY 05/27/23 05/27/23 mcg (50,000 unit) capsule lidocaine 5 % topical patch 1 patch transdermal DAILY PRN Pain 05/27/23 05/27/23 pregabalin 50 mg capsule 50 mg PO DAILY 05/27/23 05/27/23 Allergies Allergy/AdvReac Type Severity Reaction Status Date / Time morphine Allergy Mild TREMORS Verified 05/27/23 08:54 Review of Systems Review of Systems: CONST: No fever. HEENT: No sore throat C/V: No chest pain RESP: No cough GI: No abdominal pain BACK: Back pain, chronic : No dysuria. M/S: No joint pain. SKIN: Darkened skin left foot NEURO: [No headache or focal numbness or weakness] PSYCH: [No depression] [facility] Past Medical History Medical History Atrial fibrillation AV fistula 3 attempts BPH (benign prostatic hyperplasia) Depression with anxiety DM2 (diabetes mellitus, type 2) ESRD (end stage renal disease) on dialysis HLD (hyperlipidemia) HTN (hypertension) Obstructive sleep apnea Seizure disorder Surgical History Surgical History H/O carpal tunnel repair H/O cataract extraction H/O cystoscopy H/O eye surgery H/O four vessel coronary artery bypass graft H/O heart artery stent X3 H/O shoulder surgery Left shoulder History of back surgery X3 History of bladder surgery History of parathyroid surgery Hx of nephrostomy Many years ago S/P cubital tunnel release Family History Family History Father No problems noted. Sibling Hypertension Cancer Grandparent Hypertension Diabetes mellitus Mother Ovarian cancer Sibling Cancer Social History Social History Social History: The patient has 5 children in the last child has Down syndrome. That child lives with him and his . 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 Code status full code Smoking status: Never smoker Alcohol intake: former Substance use: never Lack of Transportation: No Lack of Food: Sometimes True Current Housing: I Have Housing Concerned About Future Housing: No Difficulty Paying Gas/Electric Bills: YES Difficulty Paying for Meds: YES Currently Unemployed: No Education: High School Diploma/GED Difficulty w/ Childcare or Family Care: YES Spiritual care concerns: No Exam Narrative: EXAMINATION OF ORGAN SYSTEMS/BODY AREAS: Constitutional: Vital signs per nursing GENERAL: Appears uncomfortable, moaning HEAD: Normal with no signs of head trauma. EYES: EOMI, conjunctiva normal ENT: Hearing grossly intact LUNGS: No
--- NOTE | 2023-09-08 19:24 | PM.IMHP ---
H&P: HPI History of Present Illness Date/Time: 09/08/23 19:24 Chief Complaint: Altered mental status Narrative: This is a 73-year-old male with past medical history significant for coronary artery disease status post coronary artery bypass grafting, end-stage renal disease on hemodialysis, atrial fibrillation, type 2 diabetes mellitus, obstructive sleep apnea, seizure disorder. Patient was brought for evaluation to the emergency room due to altered mental status, generalized weakness, states that has becoming increasingly taxing and cumbersome to care for him at home. At the time of my visit I was unable to obtain any history as patient is stuporous. Blood preliminary workup was significant for chest x-ray with infiltrates. Patient also with left lower extremity distal wounds necrotic ulcers. Patient has been admitted for further evaluation management and treatment. XR chest 1V portable 09/08/2023 14:03 Indication: Altered mental status Procedure: AP portable chest Comparison: 06/03/2019 Findings: Status post median sternotomy for CABG. Patchy bilateral airspace disease. There is fissural thickening on the right. Small right pleural effusion. Heart size normal. Impression: 1: Bilateral airspace disease predominantly basilar, suspicious for pneumonia. 2:? Small right pleural effusion. 3: Chronic elevation of the right diaphragm. XR foot LT 2V 09/08/2023 14:03 Indication: Left foot infection Procedure: 3 views left foot Comparison: No prior studies for comparison. Findings: Osteopenia. There is extensive atherosclerosis. Mild polyarticular osteoarthritis. Lisfranc joint intact. There are degenerative calcaneal enthesophytes. No fracture or traumatic malalignment. No evidence for osteomyelitis. Impression: 1: No acute bone or joint abnormality. EXAMINATION: US art doppler w press LE DATE: 09/08/2023 17:16 INDICATION: Discoloration of the left foot TECHNIQUE: Doppler waveforms of the arteries in the bilateral lower limbs as well as a left great toe pressure were obtained. Right great toe pressure and waveforms in the right lower leg were unable to be obtained due to right [id number] amputation. Pressures were not obtained at the brachial arteries were in the lower extremities as negative the patient nor his were able to confirm or deny any prior asbestos surgery or stenting in the extremities. COMPARISON: None. FINDINGS: Biphasic waveforms with brisk systolic upstrokes are seen in the right common femoral and right superficial femoral arteries. In the left lower limb biphasic waveforms with brisk systolic upstrokes are seen in the left common femoral, superficial femoral, popliteal, posterior tibial and dorsalis pedis arteries. Left great toe pressure of 59 mmHg. IMPRESSION: 1. Limited study as no history was obtained of potential prior vascular stenting to allow for obtaining of segmental pressures. Aphasic waveforms seen throughout the arteries of the left lower limb and the arteries of the right thigh with left great toe pressure of 59 mmHg. 2. Cardiac arrhythmia is present. Correlate with EKG. Review of Systems Review of Systems: ROS unobtainable: Yes unobtainable due to mental status (Stuporous) [facility] Past Medical History Medical History Atrial fibrillation AV fistula 3 attempts BPH (benign prostatic hyperplasia) Depression with anxiety DM2 (diabetes mellitus, type 2) ESRD (end stage renal disease) on dialysis HLD (hyperlipidemia) HTN (hypertension) Obstructive sleep apnea Seizure disorder Surgical History Surgical History H/O carpal tunnel repair H/O cataract extraction H/O cystoscopy H/O eye surgery H/O four vessel coronary artery bypass graft H/O heart artery stent X3 H/O shoulder surgery Left shoulder History of back surgery X3 History of bladder jannet
[2023-09-08] MEDS: LORazepam INJ (*CRX) 2 MG/ML VIAL 0.5 MG IV PUSH (19:35)
--- NOTE | 2023-09-08 21:54 | ADMGEN ---
This patient, Erma Harmon, was admitted to [facility] Surg Room 324-01. Patient/family oriented to hospital policies and general routines including ID bracelet, bed and alarms, visiting hours, pain management, procedures, bathroom and other care routines, personal items, smoking policy, room service/diet, and visiting hours. Information on how to activate the Rapid Response Team has been discussed. Patient/Family are encouraged to report perceived risks to care and to ask questions if they do not understand what they are told or what they should do.
[2023-09-09] VITALS (22 sets, daily range): BP systolic 93–137; BP diastolic 30–90; PULSE 64–135; RESP 16–22; TEMP 36.4–37.6; O2SAT 95–100; BMI 22.3
[2023-09-09] MEDS: AZITHROMYCIN 500 MG/NS 250 ML 500 MG/250 ML BAG 250 MG IVPB (03:47)
[2023-09-09] MEDS: CEFEPIME 0.5 GM in DEXTROSE 5% IN WATER 50 ML IVPB (05:06)
[2023-09-09 06:28] LABS: MRSA (PCR) NOT DETECTED (NOT DETECTE)
[2023-09-09 06:49] LABS: Basophils Absolute Auto 0.1 K/mm3 (0.0-0.1); Basophils Percent Auto 0.8 % (0.2-1.2); Eosinophils Absolute Auto 0.3 K/mm3 (0-0.3); Eosinophils Percent Auto 3.4 % (0-4.4); Hematocrit 32.1 % (42.0-52.0); Hemoglobin 9.8 g/dL (14.0-18.0); Immature Granulocyte Absolute 0.07 K/mm3 (0.00-0.031); Immature Granulocyte Percent A 0.7 % (0-0.5); Lymphocytes Absolute Auto 1.97 K/mm3 (0.9-3.2); Lymphocytes Percent Auto 20.7 % (18.3-44.2); Mean Corpuscular HGB Conc 30.5 g/dl (32-36); Mean Corpuscular Hemoglobin 32.3 pg (26-34); Mean Corpuscular Volume 105.9 fl (80-100); Monocytes Absolute Auto 0.6 K/mm3 (0.1-0.6); Monocytes Percent Auto 6.7 % (2.6-8.5); Neutrophils Absolute Auto 6.4 K/mm3 (1.3-6.7); Neutrophils Percent Auto 67.7 % (45.5-73.1); Platelet Count Result 355 k/mm3 (150-375); Red Blood Count 3.03 M/mm3 (4.6-6.20); Red Cell Distribution Width 18.2 % (11.5-14.5); White Blood Count 9.5 K/mm3 (4.5-10.0)
[2023-09-09 07:13] LABS: Alanine Aminotransferase 17 U/L (6-50); Albumin Level 3.7 g/dL (3.5-5.1); Alkaline Phosphatase 76 U/L (38-126); Anion Gap 19 mmol/L (8-16); Aspartate Amino Transferase 34 U/L (17-59); Bilirubin,Total 0.8 mg/dL (0.2-1.3); Blood Urea Nitrogen 85 mg/dL (9-20); Calcium 9.7 mg/dL (8.4-10.2); Carbon Dioxide 17 mmol/L (22-30); Chloride 109 mmol/L (98-107); Estimated CRCL calculation 8 ml/min; Estimated Glomerular Filt Rate 6; Glucose 167 mg/dL (65-110); Potassium 3.9 mmol/L (3.4-5.0); Sodium 145 mmol/L (137-145)
[2023-09-09 07:30] LABS: Platelet Estimate Adequate (Adequate)
[2023-09-09 07:31] LABS: Anisocytosis 1+ (NORMAL); Macrocytosis 1+ (NORMAL); Schistocytes None Seen (NORMAL)
[2023-09-09 07:48] LABS: Hepatitis B Surface Antigen Negative (Negative)
[2023-09-09 08:06] LABS: Hepatitis B Surface Anti Res Negative
[2023-09-09] MEDS: MICONAZOLE NITRATE 2% CREAM 30 GM TUBE 1 APPLIC TOPICAL ×2 (08:21→21:08)
[2023-09-09] MEDS: ASPIRIN 81 MG ENTERIC TABLET PO (08:21)
[2023-09-09] MEDS: APIXABAN 5 MG TABLET PO ×2 (08:21→21:08)
[2023-09-09] MEDS: ACETAMINOPHEN 500 MG TABLET PO (08:21)
[2023-09-09] MEDS: SENNA/DOCUSATE SODIUM TABLET 1 TAB PO ×2 (08:21→21:08)
[2023-09-09] MEDS: SEVELAMER CARBONATE 800 MG TABLET PO ×2 (08:21→17:00)
[2023-09-09] MEDS: PRAMIPEXOLE 0.5 MG TABLET PO ×2 (08:24→21:08)
--- NOTE | 2023-09-09 09:30 | P.CONNP_ITS ---
Assessment and Plan Assessment and plan (1) End stage renal disease: Code(s): N18.6 - End stage renal disease Status: Chronic Assessment and Plan: * HD today * continue outpatient schedule of // * missed treatment on Tuesday this week (did no have appropriate equipment for parish lift to be moved to chair in dialysis unit) * outpatient dialysis done at [facility] under the care of Dr. Wesley Santiago * follow electrolytes, volume status, and clearance (2) Altered mental status: Code(s): R41.82 - Altered mental status, unspecified Status: Acute Assessment and Plan: * thought to be secondary to infection (pneumonia +/- left foot wounds +/- decubitus ulcer) * possible component of uremia (since missed a dialysis treatment)? * follow culture data * on antibiotics * check CT of head * follow mentation (3) Pneumonia: Code(s): J18.9 - Pneumonia, unspecified organism Status: Acute Assessment and Plan: * suspect based on imaging to date * on broad-spectrum antibiotics * follow cultures * monitor respiratory status (4) Atrial fibrillation: Code(s): I48.91 - Unspecified atrial fibrillation Status: Chronic Assessment and Plan: * rate control strategy * already on anticoagulation (5) Anemia: Code(s): D64.9 - Anemia, unspecified Status: Chronic Assessment and Plan: * due to ESRD and acute illness * Epogen with HD * follow trend of H/H (6) HTN (hypertension): Code(s): I10 - Essential (primary) hypertension Status: Chronic Assessment and Plan: * reasonable control * follow trend of hemodynaics (7) DM2 (diabetes mellitus, type 2): Code(s): E11.9 - Type 2 diabetes mellitus without complications Status: Chronic Assessment and Plan: * follow accu-cheks * glycemic control per hospitalists I will continue to follow the patient with you while he remains hospitalized and make further recommendations as deemed necessary. Thank you for allowing me to participate in the care of this patient. History of Present Illness Reason for Consult Consult date: 09/09/23 Reason for consult: end stage renal disease Chief Complaint Chief complaint: Decub Ulcer, PNA History of Present Illness Narrative: Most of the information that I have obtained is from review of the electronic medical record as well as discussion with his outpatient dialysis unit as the patient is confused and unable to provide me with much history regarding the events that led to his presentation to [facility] Emergency Room. The patient is a 73-year-old male with a past medical history as outlined below who presented to [facility] Emergency room for further assessment of altered mental status and generalized weakness. The patient was just recently discharged from rehab after extensive hospitaliza tions over the last three months. 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 In any case, I believe he was last in rehab in [facility] where they
--- NOTE | 2023-09-09 09:30 | PM.CNNEP ---
Assessment and Plan Assessment and plan (1) End stage renal disease: Code(s): N18.6 - End stage renal disease Status: Chronic Assessment and Plan: HD today continue outpatient schedule of M/W/F missed treatment on Tuesday this week (did no have appropriate equipment for parish lift to be moved to chair in dialysis unit) outpatient dialysis done at [facility] under the care of Dr. Wesley Santiago follow electrolytes, volume status, and clearance (2) Altered mental status: Code(s): R41.82 - Altered mental status, unspecified Status: Acute Assessment and Plan: thought to be secondary to infection (pneumonia +/- left foot wounds +/- decubitus ulcer) possible component of uremia (since missed a dialysis treatment)? follow culture data on antibiotics check CT of head follow mentation (3) Pneumonia: Code(s): J18.9 - Pneumonia, unspecified organism Status: Acute Assessment and Plan: suspect based on imaging to date on broad-spectrum antibiotics follow cultures monitor respiratory status (4) Atrial fibrillation: Code(s): I48.91 - Unspecified atrial fibrillation Status: Chronic Assessment and Plan: rate control strategy already on anticoagulation (5) Anemia: Code(s): D64.9 - Anemia, unspecified Status: Chronic Assessment and Plan: due to ESRD and acute illness Epogen with HD follow trend of H/H (6) HTN (hypertension): Code(s): I10 - Essential (primary) hypertension Status: Chronic Assessment and Plan: reasonable control follow trend of hemodynaics (7) DM2 (diabetes mellitus, type 2): Code(s): E11.9 - Type 2 diabetes mellitus without complications Status: Chronic Assessment and Plan: follow accu-cheks glycemic control per hospitalists I will continue to follow the patient with you while he remains hospitalized and make further recommendations as deemed necessary. Thank you for allowing me to participate in the care of this patient. History of Present Illness Reason for Consult Consult date: 09/09/23 Reason for consult: end stage renal disease Chief Complaint Chief complaint: Decub Ulcer, PNA History of Present Illness Narrative: Most of the information that I have obtained is from review of the electronic medical record as well as discussion with his outpatient dialysis unit as the patient is confused and unable to provide me with much history regarding the events that led to his presentation to [facility] Emergency Room. The patient is a 73-year-old male with a past medical history as outlined below who presented to [facility] Emergency room for further assessment of altered mental status and generalized weakness. The patient was just recently discharged from rehab after extensive hospitalizations over the last three months. 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 In any case, I believe he was last in rehab in [facility] where they were doing his dialysis treatments at the facility due to his bed-bound status. His last reported dialysis treatment therapy was on Tuesday prior to his discharge. Since he has been at home, his family has noted that his mentation is not where it should be and his overall physical status has worsened despite the fact that he was just discharged from acute rehabilitation. His has been unable to care for him due to h
--- NOTE | 2023-09-09 09:52 | PC.NURSE ---
Pt's , Megan, called wanting an update. I returned her call at the earliest opportunity. I answered her questions. She was concerned about a list of pt's meds and said she would bring it in again this afternoon.
--- NOTE | 2023-09-09 10:03 | PM.IMPN ---
Progress Note: A&P Assessment and Plan (1) Altered mental status: Code(s): R41.82 - Altered mental status, unspecified Status: Acute (2) Pneumonia: Code(s): J18.9 - Pneumonia, unspecified organism Status: Acute (3) Acute encephalopathy: Code(s): G93.40 - Encephalopathy, unspecified Status: Acute Plan 73M w/ PMH BPH, HTN, NIDDM, ESRD MWF, HLD, DWAYNE, seizure disorder, a fib on eliquis, depression and anxiety presents from home. He was released a few days prior from rehab, was in our facility prior to that for weakness. He is again weak, and altered. The reports she cannot care for him, this has been going on for 4 months and she is tired. The pt admitted for weakness and HCAP. 1) acute encephalopathy - toxic likely. will also obtain CT head as that was not done on admission 2) HCAP - cefepime vancomycin started 09/08. continue. - f/u blood cultures 3) weakness - when more alert, consult PT/OT and prepare for d/c to rehab again. if not, will consult hospice as he does qualify. I spoke with the who reports she cannot care for him anymore. she has a disabled daughter as well. the son is helping out at home. she also did clarify the pt would like to be DNR 4) HTN - resume home meds 5) ESRD MWF - resume dialysis, received today. - nephrology on consult 6) seizure disorder - ctm 7) a fib on eliquis - cont tele monitor. cont eliquis 8) NIDDM - accuchecks and sliding scale. FEN: saline lock IV GI prophylaxis: not indicated DVT prophylaxis: on eliquis Lines: pIV and fistula Code Status: DNR Dispo: guarded. hospice discussion started with , will revisit based on his course here. More than 35 minutes spent on chart review, patient interaction and assessment and plan. Subjective Date/time seen: 09/09/23 10:03 Interval history: NAOE. pt seen in dialysis room. he appears extremely lethargic. he can barely utter his name to me, does not know where he is. he cannot produce complaints otherwise. Review of Systems Review of Systems: All systems reviewed & are unremarkable except as noted in HPI and below Exam Const: General: no acute distress HENMT: Mouth: Yes dry mucous membranes Other: poor dentition. unkempt Eyes: Pupils: Equal, round and reactive pupils present Resp: Effort & Inspection: abnormal respiratory effort Other: poor respiratory effort Cardio: Rate: regular rate Rhythm: regular rhythm GI: GI Palp: Yes Soft to palpation and No Tenderness to palpation present (GI) Auscultation: normal bowel sounds Extrem: General: no edema Objective Data Vital Signs Vital Signs: Vital Signs - 24 hr 09/08/23 13:10 09/08/23 13:10 09/08/23 13:39 Temperature 97.5 F L Pulse Rate 142 H 129 H Respiratory Rate 32 H 20 Blood Pressure 122/84 Pulse Oximetry 92 92 Oxygen Delivery Nasal Cannula Nasal Cannula Oxygen Flow Rate 4 4 09/08/23 13:45 09/08/23 13:46 09/08/23 13:47 Temperature Pulse Rate 137 H 128 H 141 H Respiratory Rate 25 H 24 H 26 H Blood Pressure 123/106 H Pulse Oximetry 96 96 95 Oxygen Delivery Oxygen Flow Rate 09/08/23 14:19 09/08/23 14:18 09/08/23 15:24 Temperature Pulse Rate 125 H 134 H Respiratory Rate 27 H 16 Blood Pressure 120/55 L Pulse Oximetry 100 100 Oxygen Delivery Oxygen Flow Rate 09/08/23 15:00 09/08/23 15:46 09/08/23 15:49 Temperature Pulse Rate 123 H 114 H Respiratory Rate 17 Blood Pressure 136/68 Pulse Oximetry 100 Oxygen Delivery Oxygen Flow Rate 09/08/23 16:00 09/08/23 16:03 09/08/23 16:15 Temperature Pulse Rate 97 122 H 97 Respiratory Rate 16 18 14 Blood Pressure 95/65 L Pulse Oximetry 100 100 100 Oxygen Delivery Oxygen Flow Rate 09/08/23 16:16 09/08/23 16:17 09/08/23 16:30 Temperature Pulse Rate 96 98 104 H Respiratory Rate 15 14 14 Blood Pressure 96/53 L Pulse Oximetry 100 100 100 Oxygen Delivery
--- NOTE | 2023-09-09 10:22 | PC.NURSE ---
I contacted Dr. Castillo to clarify his order for pt to be placed on telemetry. I explained that we do not have a tele spot open on our unit. Additionally, I explained that med-surg does Q4 tele and IMU does Q2. Dr. Castillo had concerns about the fact that the tele was not being continuously monitored by a staff member and that he could not order for a pt to be placed on telemetry at any given time. I explained that we can see if some of the other pts could be removed from tele to free up a space at which time pt could be placed on tele; however, there is no spot for pt at this time. I made the charge nurse aware of the situation. Dr. Castillo clearly stated that he did not want the tele order discontinued but it was permissible to change it to Q4 so tht pt may remain in med-surg.
[2023-09-09] MEDS: EPOETIN ALFA-EPBX 10,000 UNITS/ML VIAL 10000 UNITS IV PUSH (10:44)
[2023-09-09 13:04] LABS: Glucose Point of Care 104 mg/dl (65-105)
[2023-09-09 16:23] LABS: Glucose Point of Care 134 mg/dl (65-105)
[2023-09-09] MEDS: MIDODRINE HCL 10 MG TABLET 20 MG PO (17:00)
[2023-09-09 18:58] LABS: Vancomycin Random 11.8 ug/mL (10-20)
[2023-09-09] MEDS: VANCOMYCIN 750 MG/NS 250 ML 750 MG/250 ML BAG 250 MG IVPB (20:41)
[2023-09-09 20:49] LABS: Glucose Point of Care 273 mg/dl (65-105)
[2023-09-09] MEDS: ATORVASTATIN 40 MG TABLET PO (21:08)
[2023-09-09] MEDS: FINASTERIDE 5 MG TABLET PO (21:08)
[2023-09-10] VITALS (10 sets, daily range): BP systolic 129–148; BP diastolic 63–79; PULSE 87–130; RESP 16–18; TEMP 35.9–36.3; O2SAT 94–100
[2023-09-10] MEDS: CEFEPIME 0.5 GM in DEXTROSE 5% IN WATER 50 ML IVPB (05:14)
[2023-09-10 06:57] LABS: Basophils Absolute Auto 0.1 K/mm3 (0.0-0.1); Eosinophils Absolute Auto 0.3 K/mm3 (0-0.3); Eosinophils Percent Auto 3.3 % (0-4.4); Hematocrit 33.2 % (42.0-52.0); Immature Granulocyte Absolute 0.06 K/mm3 (0.00-0.031); Immature Granulocyte Percent A 0.7 % (0-0.5); Lymphocytes Absolute Auto 2.08 K/mm3 (0.9-3.2); Lymphocytes Percent Auto 23.4 % (18.3-44.2); Mean Corpuscular HGB Conc 30.1 g/dl (32-36); Mean Corpuscular Hemoglobin 31.8 pg (26-34); Mean Corpuscular Volume 105.7 fl (80-100); Mean Platelet Volume 8.8 fl (7.4-10.4); Monocytes Percent Auto 10.7 % (2.6-8.5); Neutrophils Absolute Auto 5.4 K/mm3 (1.3-6.7); Neutrophils Percent Auto 60.9 % (45.5-73.1); Platelet Count Result 353 k/mm3 (150-375); Red Blood Count 3.14 M/mm3 (4.6-6.20); Red Cell Distribution Width 18.1 % (11.5-14.5); White Blood Count 8.9 K/mm3 (4.5-10.0)
[2023-09-10 07:25] LABS: Anion Gap 12 mmol/L (8-16); Blood Urea Nitrogen 33 mg/dL (9-20); Carbon Dioxide 25 mmol/L (22-30); Chloride 105 mmol/L (98-107); Estimated CRCL calculation 15 ml/min; Estimated Glomerular Filt Rate 14; Glucose 167 mg/dL (65-110); Potassium 2.8 mmol/L (3.4-5.0); Sodium 142 mmol/L (137-145)
[2023-09-10 07:46] LABS: Glucose Point of Care 159 mg/dl (65-105)
[2023-09-10 08:10] LABS: Anisocytosis 1+ (NORMAL); Burr Cells 1+ (NORMAL); Platelet Estimate Adequate (Adequate); Schistocytes None Seen (NORMAL)
[2023-09-10] MEDS: AZITHROMYCIN 500 MG/NS 250 ML 500 MG/250 ML BAG 250 MG IVPB (08:14)
[2023-09-10 08:40] LABS: Procalcitonin 1.6 ng/mL
[2023-09-10] MEDS: MIDODRINE HCL 10 MG TABLET 20 MG PO ×3 (11:26→18:42)
[2023-09-10] MEDS: ASPIRIN 81 MG ENTERIC TABLET PO (11:27)
[2023-09-10] MEDS: SENNA/DOCUSATE SODIUM TABLET 1 TAB PO ×2 (11:27→20:23)
[2023-09-10] MEDS: SEVELAMER CARBONATE 800 MG TABLET PO ×3 (11:27→18:42)
[2023-09-10] MEDS: PRAMIPEXOLE 0.5 MG TABLET PO ×2 (11:28→20:23)
[2023-09-10] MEDS: APIXABAN 5 MG TABLET PO ×2 (11:28→20:23)
[2023-09-10 11:29] LABS: Glucose Point of Care 261 mg/dl (65-105)
[2023-09-10] MEDS: INSULIN ASPART (*BKC) 100 UNITS/ML SUB-Q (11:39)
--- NOTE | 2023-09-10 13:16 | PM.PNNEP ---
Progress Note: A&P Assessment and Plan (1) End stage renal disease: Code(s): N18.6 - End stage renal disease Status: Chronic Assessment and Plan: HD yesterday continue outpatient schedule of M/W/F missed treatment on Tuesday (09/07) this week (did no have appropriate equipment for parish lift to be moved to chair in dialysis unit) outpatient dialysis done at [facility] under the care of Dr. Wesley Santiago follow electrolytes, volume status, and clearance (2) Altered mental status: Code(s): R41.82 - Altered mental status, unspecified Status: Acute Assessment and Plan: still confused but more awake/alert thought to be secondary to infection (pneumonia +/- left foot wounds +/- decubitus ulcer) possible component of uremia (since missed a dialysis treatment)? follow culture data on antibiotics CT of head noted follow mentation (3) Pneumonia: Code(s): J18.9 - Pneumonia, unspecified organism Status: Acute Assessment and Plan: suspect based on imaging to date on broad-spectrum antibiotics follow cultures monitor respiratory status (4) Atrial fibrillation: Code(s): I48.91 - Unspecified atrial fibrillation Status: Chronic Assessment and Plan: rate control strategy already on anticoagulation (5) Anemia: Code(s): D64.9 - Anemia, unspecified Status: Chronic Assessment and Plan: due to ESRD and acute illness Epogen with HD follow trend of H/H (6) HTN (hypertension): Code(s): I10 - Essential (primary) hypertension Status: Chronic Assessment and Plan: reasonable control follow trend of hemodynaics (7) DM2 (diabetes mellitus, type 2): Code(s): E11.9 - Type 2 diabetes mellitus without complications Status: Chronic Assessment and Plan: follow accu-cheks glycemic control per hospitalists Will continue to follow. Subjective Date/time seen: 09/10/23 13:26 Interval history: Follow-up for end stage renal disease on hemodialysis. Tolerated hemodialysis yesterday although fluid removal was limited due to intradialytic hypotension; still confused but more awake/alert at the time of my visit; no apparent distress voiced at this time; no issues/eents overnight or earlier this morning. Exam Narrative: General: chronically ill appearing male in NAD Heart: normal S1 and S2; no rub Lungs: coarse breath sounds Abdomen: soft, nontender, nondistended, positive bowel sounds Extremities: no cyanosis or clubbing; right AKA Skin: left foot dark with necrotic toe wounds Objective Data Vital Signs Vital Signs: Vital Signs Temp Pulse Resp BP Pulse Ox O2 Del Method O2 Flow Rate 09/10/23 13:00 97.3 F L 94 18 148/66 H 100 09/10/23 07:56 94 Room Air 09/10/23 06:00 97 F L 119 H 18 137/79 98 09/10/23 04:00 112 H 09/10/23 00:00 109 H 09/09/23 20:00 128 H 09/09/23 20:00 135 H 16 100 Nasal Cannula 4 09/09/23 22:00 97.8 F 135 H 16 132/76 100 Intake/Output Intake/Output: Intake & Output 09/07/23 09/08/23 09/09/23 09/10/23 23:59 23:59 23:59 23:59 Intake Total 1300 965 950 Output Total 40 908 Balance 1260 57 950 Meds/Results Medications: Active Medications Generic Name Dose Route Start Last Admin Trade Name Freq PRN Reason Stop Dose Admin Acetaminophen 500 mg 09/09/23 01:19 09/10/23 13:59 Acetaminophen 500 Mg Tablet PO 500 mg Q6H PRN Administration Pain 1-6 Apixaban 5 mg 09/09/23 09:00 09/10/23 11:28 Apixaban 5 Mg Tablet PO 5 mg Q12HR AURELIO Administration Aspirin 81 mg 09/09/23 09:00 09/10/23 11:27 Aspirin 81 Mg Enteric Tablet PO 10/09/23 08:59 81 mg DAILY AURELIO Administration Atorvastatin Calcium 40 mg 09/09/23 21:00 09/09/23 21:08 Atorvastatin 40 Mg Tablet PO 40 mg HS AURELIO Administration Dextrose 12.5
--- NOTE | 2023-09-10 13:16 | P.PNNP_ITS ---
Progress Note: A&P Assessment and Plan (1) End stage renal disease: Code(s): N18.6 - End stage renal disease Status: Chronic Assessment and Plan: * HD yesterday * continue outpatient schedule of // * missed treatment on Tuesday (09/07) this week (did no have appropriate equipment for parish lift to be moved to chair in dialysis unit) * outpatient dialysis done at [facility] under the care of Dr. Wesley Santiago * follow electrolytes, volume status, and clearance (2) Altered mental status: Code(s): R41.82 - Altered mental status, unspecified Status: Acute Assessment and Plan: * still confused but more awake/alert * thought to be secondary to infection (pneumonia +/- left foot wounds +/- decubitus ulcer) * possible component of uremia (since missed a dialysis treatment)? * follow culture data * on antibiotics * CT of head noted * follow mentation (3) Pneumonia: Code(s): J18.9 - Pneumonia, unspecified organism Status: Acute Assessment and Plan: * suspect based on imaging to date * on broad-spectrum antibiotics * follow cultures * monitor respiratory status (4) Atrial fibrillation: Code(s): I48.91 - Unspecified atrial fibrillation Status: Chronic Assessment and Plan: * rate control strategy * already on anticoagulation (5) Anemia: Code(s): D64.9 - Anemia, unspecified Status: Chronic Assessment and Plan: * due to ESRD and acute illness * Epogen with HD * follow trend of H/H (6) HTN (hypertension): Code(s): I10 - Essential (primary) hypertension Status: Chronic Assessment and Plan: * reasonable control * follow trend of hemodynaics (7) DM2 (diabetes mellitus, type 2): Code(s): E11.9 - Type 2 diabetes mellitus without complications Status: Chronic Assessment and Plan: * follow accu-cheks * glycemic control per hospitalists Will continue to follow. Subjective Date/time seen: 09/10/23 13:26 Interval history: Follow-up for end stage renal disease on hemodialysis. Tolerated hemodialysis yesterday although fluid removal was limited due to intradialytic hypotension; still confused but more awake/alert at the time of my visit; no apparent distress voiced at this time; no issues/eents overnight or earlier this morning. Exam Narrative: General: chronically ill appearing male in NAD Heart: normal S1 and S2; no rub Lungs: coarse breath sounds Abdomen: soft, nontender, nondistended, positive bowel sounds Extremities: no cyanosis or clubbing; right AKA Skin: left foot dark with necrotic toe wounds Objective Data Vital Signs Vital Signs: Vital Signs Temp Pulse Resp BP Pulse Ox O2 Del Method O2 Flow Rate 09/10/23 13:00 97.3 F L 94 18 148/66 H 100 09/10/23 07:56 94 Room Air 09/10/23 06:00 97 F L 119 H 18 137/79 98 09/10/23 04:00 112 H 09/10/23 00:00 109 H 09/09/23 20:00 128 H 09/09/23 20:00 135 H 16 100 Nasal Cannula 4 09/09/23 22:00 97.8 F 135 H 16 132/76 100 Intake/Output Intake/Output: Intake & Output 09/07/23 09/08/23 09/09/23 09/10/23 23:59 23:59 23:59 23:59 Intake Tota
--- NOTE | 2023-09-10 13:34 | PM.IMPN ---
Progress Note: A&P Assessment and Plan (1) Altered mental status: Code(s): R41.82 - Altered mental status, unspecified Status: Acute (2) Anemia: Code(s): D64.9 - Anemia, unspecified Status: Chronic (3) ESRD (end stage renal disease) on dialysis: Code(s): N18.6 - End stage renal disease; Z99.2 - Dependence on renal dialysis Status: Acute (4) Pneumonia: Code(s): J18.9 - Pneumonia, unspecified organism Status: Acute Plan Plan 73M w/ PMH BPH, HTN, NIDDM, ESRD MWF, HLD, DWAYNE, seizure disorder, a fib on eliquis, depression and anxiety presents from home. He was released a few days prior from rehab, was in our facility prior to that for weakness. He is again weak, and altered. The reports she cannot care for him, this has been going on for 4 months and she is tired. His cognition has also decline for many months. The pt admitted for weakness and HCAP. 1) acute encephalopathy - no evidence of acute CVA on CT head - likely 2/2 to pneumonia. mental status greatly improved, not quite yet back to baseline, but he has been declining progressively over the months. 2) HCAP - cefepime vancomycin started 09/08. continue. - procalcitonin 1.5 today. repeat in AM and consider de escalating if he continues to improve - f/u blood cultures 3) weakness - improved. PT/OT and plan for SNF placement for rehab. 4) HTN - resume home meds 5) ESRD MWF - resume dialysis, received on 09/09 - hypokalemia. suggested by nephrology to give 40meq PO one time dose. will recheck this evening and again in the AM - nephrology on consult 6) seizure disorder - ctm, no seizure activity 7) a fib on eliquis - cont tele monitor. cont eliquis 8) NIDDM - accuchecks and sliding scale. FEN: saline lock IV GI prophylaxis: not indicated DVT prophylaxis: on eliquis Lines: pIV and fistula Code Status: DNR Dispo: guarded. hospice discussion started with . he has improved so will continue with PT/OT and hope to d'c him to SNF for rehab. More than 35 minutes spent on chart review, patient interaction and assessment and plan. Subjective Date/time seen: 09/10/23 13:34 Interval history: NAOE. patient is greatly improved. A&Ox1 only, but his stupor has resolved. he has no complaints. daughter and in room. discussion held for at least 15 minutes. reports she would like him to go to rehab to get stronger. he has had a progressive decline in cognitive function for many months now since his right leg amputation. Review of Systems Review of Systems: All systems reviewed & are unremarkable except as noted in HPI and below Exam Const: General: comfortable Other: very weak. will not sit up or even roll to participate with lung exam. Resp: Effort & Inspection: normal respiratory effort Cardio: Rate: regular rate Rhythm: regular rhythm GI: GI Palp: Yes Soft to palpation Auscultation: normal bowel sounds Extrem: General: no edema Objective Data Vital Signs Vital Signs: Vital Signs - 24 hr 09/09/23 14:00 09/09/23 16:00 09/09/23 22:00 Temperature 99.6 F 97.8 F Pulse Rate 135 H 116 H 135 H Respiratory Rate 18 16 Blood Pressure 101/65 132/76 Pulse Oximetry 100 100 Oxygen Delivery Oxygen Flow Rate Fraction of Inspired Oxygen 09/09/23 20:00 09/09/23 20:00 09/10/23 00:00 Temperature Pulse Rate 135 H 128 H 109 H Respiratory Rate 16 Blood Pressure Pulse Oximetry 100 Oxygen Delivery Nasal Cannula Oxygen Flow Rate 4 Fraction of Inspired Oxygen 09/10/23 04:00 09/10/23 06:00 09/10/23 07:56 Temperature 97 F L Pulse Rate 112 H 119 H Respiratory Rate 18 Blood Pressure 137/79 Pulse Oximetry 98 94 Oxygen Delivery Room Air Oxygen Flow Rate Fraction of Inspired Oxygen 21 Intake/Output Intake/Output: Intake & Output 09/07/23 09/08/23 09/09/23 09/10/23 23:59 23:59 23:59 23:59 Intake Total 1300 965 950 Output Total 40
[2023-09-10] MEDS: POTASSIUM CHLORIDE 20 MEQ ER TABLET PO (13:56)
[2023-09-10] MEDS: ACETAMINOPHEN 500 MG TABLET PO (13:59)
[2023-09-10 16:15] LABS: Glucose Point of Care 134 mg/dl (65-105)
[2023-09-10 19:40] LABS: Anion Gap 12 mmol/L (8-16); Blood Urea Nitrogen 41 mg/dL (9-20); Calcium 10.2 mg/dL (8.4-10.2); Carbon Dioxide 25 mmol/L (22-30); Chloride 105 mmol/L (98-107); Estimated CRCL calculation 13 ml/min; Estimated Glomerular Filt Rate 11; Glucose 174 mg/dL (65-110); Potassium 2.9 mmol/L (3.4-5.0); Sodium 142 mmol/L (137-145)
[2023-09-10] MEDS: FINASTERIDE 5 MG TABLET PO (20:23)
[2023-09-10] MEDS: ATORVASTATIN 40 MG TABLET PO (20:23)
[2023-09-10 21:33] LABS: Glucose Point of Care 282 mg/dl (65-105)
[2023-09-11] VITALS (10 sets, daily range): BP systolic 124–138; BP diastolic 66–76; PULSE 69–105; RESP 16–18; TEMP 36.1–36.6; O2SAT 97–99
[2023-09-11] MEDS: CEFEPIME 0.5 GM in DEXTROSE 5% IN WATER 50 ML IVPB (03:12)
[2023-09-11] MEDS: AZITHROMYCIN 500 MG/NS 250 ML 500 MG/250 ML BAG 250 MG IVPB (05:43)
[2023-09-11 07:24] LABS: Basophils Absolute Auto 0.1 K/mm3 (0.0-0.1); Basophils Percent Auto 0.9 % (0.2-1.2); Eosinophils Absolute Auto 0.5 K/mm3 (0-0.3); Eosinophils Percent Auto 4.8 % (0-4.4); Hematocrit 32.2 % (42.0-52.0); Hemoglobin 9.8 g/dL (14.0-18.0); Immature Granulocyte Absolute 0.05 K/mm3 (0.00-0.031); Immature Granulocyte Percent A 0.5 % (0-0.5); Lymphocytes Percent Auto 23.1 % (18.3-44.2); Mean Corpuscular HGB Conc 30.4 g/dl (32-36); Mean Corpuscular Hemoglobin 31.7 pg (26-34); Mean Corpuscular Volume 104.2 fl (80-100); Mean Platelet Volume 8.8 fl (7.4-10.4); Monocytes Percent Auto 10.1 % (2.6-8.5); Neutrophils Absolute Auto 5.8 K/mm3 (1.3-6.7); Neutrophils Percent Auto 60.6 % (45.5-73.1); Platelet Count Result 358 k/mm3 (150-375); Red Blood Count 3.09 M/mm3 (4.6-6.20); Red Cell Distribution Width 17.8 % (11.5-14.5); White Blood Count 9.5 K/mm3 (4.5-10.0)
[2023-09-11 07:33] LABS: Anion Gap 14 mmol/L (8-16); Blood Urea Nitrogen 44 mg/dL (9-20); Carbon Dioxide 21 mmol/L (22-30); Chloride 107 mmol/L (98-107); Estimated CRCL calculation 11 ml/min; Estimated Glomerular Filt Rate 9; Glucose 153 mg/dL (65-110); Magnesium 2.4 mg/dL (1.6-2.3); Potassium 2.9 mmol/L (3.4-5.0); Sodium 142 mmol/L (137-145)
[2023-09-11 07:54] LABS: Glucose Point of Care 148 mg/dl (65-105)
[2023-09-11 08:08] LABS: Procalcitonin 1.7 ng/mL
[2023-09-11] MEDS: SENNA/DOCUSATE SODIUM TABLET 1 TAB PO ×2 (09:48→21:09)
[2023-09-11] MEDS: SEVELAMER CARBONATE 800 MG TABLET PO ×3 (09:48→16:55)
[2023-09-11] MEDS: PRAMIPEXOLE 0.5 MG TABLET PO ×2 (09:48→21:09)
[2023-09-11] MEDS: APIXABAN 5 MG TABLET PO ×2 (09:48→21:09)
[2023-09-11] MEDS: ASPIRIN 81 MG ENTERIC TABLET PO (09:49)
[2023-09-11] MEDS: MIDODRINE HCL 10 MG TABLET 20 MG PO ×3 (09:49→16:55)
--- NOTE | 2023-09-11 10:01 | PM.IMPN ---
Progress Note: A&P Assessment and Plan (1) Altered mental status: Code(s): R41.82 - Altered mental status, unspecified Status: Acute (2) Anemia: Code(s): D64.9 - Anemia, unspecified Status: Chronic (3) ESRD (end stage renal disease) on dialysis: Code(s): N18.6 - End stage renal disease; Z99.2 - Dependence on renal dialysis Status: Acute (4) Pneumonia: Code(s): J18.9 - Pneumonia, unspecified organism Status: Acute Plan Plan 73M w/ PMH BPH, HTN, NIDDM, ESRD MWF, HLD, DWAYNE, seizure disorder, a fib on eliquis, depression and anxiety presents from home. He was released a few days prior from rehab, was in our facility prior to that for weakness. He is again weak, and altered. The reports she cannot care for him, this has been going on for 4 months and she is tired. His cognition has also decline for many months. The pt admitted for weakness and HCAP. 1) acute encephalopathy - no evidence of acute CVA on CT head - likely 2/2 to pneumonia. mental status has come back to baseline over 3 days whereas on admission he couldn't even repeat his name. magnificent improvement. 2) HCAP - cefepime vancomycin started 09/08. continue for another day considering procal went up. check procal again in AM - f/u blood cultures, NGTD 3) weakness - improved. PT/OT and plan for SNF placement for rehab. 4) HTN - resume home meds 5) ESRD MWF - resume dialysis, received on 09/09 - hypokalemia on 09/10. again low on 09/11, give another KCL tab 20meq and recheck in PM. dialysis tomorrow. - nephrology on consult 6) seizure disorder - ctm, no seizure activity 7) a fib on eliquis - cont tele monitor. cont eliquis 8) NIDDM - accuchecks and sliding scale. FEN: saline lock IV GI prophylaxis: not indicated DVT prophylaxis: on eliquis Lines: pIV and fistula Code Status: DNR Dispo: stable and improved. plan for d/c to rehab. More than 35 minutes spent on chart review, patient interaction and assessment and plan. Subjective Date/time seen: 09/11/23 10:01 Interval history: NAOE. son is in the room today. he is agreeable with plan after discussion was held. pt, as his usual, claims he will go home, but is redirected by myself and son that he is in dire need of acute rehab or he will not be able to sustain fpc. pt then agrees. much less confused than yesterday as well. Review of Systems Review of Systems: All systems reviewed & are unremarkable except as noted in HPI and below Exam Const: General: comfortable and no acute distress Other: A&Ox4 today Neck: Neck: supple Resp: Effort & Inspection: normal respiratory effort Auscultation: rales (scant, diffuse) Cardio: Rate: regular rate Rhythm: regular rhythm GI: GI Palp: Yes Soft to palpation Auscultation: normal bowel sounds Extrem: General: no edema Objective Data Vital Signs Vital Signs: Vital Signs - 24 hr 09/10/23 14:00 09/10/23 10:50 09/10/23 12:00 Temperature 97.3 F L Pulse Rate 94 112 H Respiratory Rate 18 Blood Pressure 148/66 H Pulse Oximetry 100 Oxygen Delivery Room Air Fraction of Inspired Oxygen 09/10/23 16:00 09/10/23 22:00 09/11/23 00:00 Temperature 96.6 F L Pulse Rate 107 H 87 91 Respiratory Rate 16 Blood Pressure 129/63 Pulse Oximetry 97 Oxygen Delivery Fraction of Inspired Oxygen 09/10/23 20:00 09/10/23 20:00 09/11/23 00:35 Temperature Pulse Rate 107 H 91 Respiratory Rate 16 Blood Pressure Pulse Oximetry 97 97 Oxygen Delivery Room Air Fraction of Inspired Oxygen 21 09/11/23 04:00 09/11/23 05:05 Temperature 96.9 F L Pulse Rate 105 H 70 Respiratory Rate 16 Blood Pressure 124/67 Pulse Oximetry 99 Oxygen Delivery Fraction of Inspired Oxygen Intake/Output Intake/Output: Intake & Output 09/08/23 09/09/23 09/10/23 09/11/23 23:59 23:59 23:59 23:59 Intake Total 0156 104 3469 250 Output Total 40 908 Bal
[2023-09-11 11:16] LABS: Glucose Point of Care 262 mg/dl (65-105)
--- NOTE | 2023-09-11 12:30 | P.PNNP_ITS ---
Progress Note: A&P Assessment and Plan (1) End stage renal disease: Code(s): N18.6 - End stage renal disease Status: Chronic Assessment and Plan: * HD yesterday * continue outpatient schedule of // * missed treatment on Tuesday (09/07) this week (did no have appropriate equipment for parish lift to be moved to chair in dialysis unit) * outpatient dialysis done at [facility] under the care of Dr. Wesley Santiago * follow electrolytes, volume status, and clearance (2) Altered mental status: Code(s): R41.82 - Altered mental status, unspecified Status: Acute Assessment and Plan: * still confused but much more awake/alert * thought to be secondary to infection (pneumonia +/- left foot wounds +/- decubitus ulcer) * possible component of uremia (since missed a dialysis treatment)? * follow culture data * on antibiotics * CT of head noted * follow mentation (3) Pneumonia: Code(s): J18.9 - Pneumonia, unspecified organism Status: Acute Assessment and Plan: * suspect based on imaging to date * on broad-spectrum antibiotics * follow cultures * monitor respiratory status (4) Atrial fibrillation: Code(s): I48.91 - Unspecified atrial fibrillation Status: Chronic Assessment and Plan: * rate control strategy * already on anticoagulation (5) Anemia: Code(s): D64.9 - Anemia, unspecified Status: Chronic Assessment and Plan: * due to ESRD and acute illness * Epogen with HD * follow trend of H/H (6) HTN (hypertension): Code(s): I10 - Essential (primary) hypertension Status: Chronic Assessment and Plan: * reasonable control * follow trend of hemodynaics (7) DM2 (diabetes mellitus, type 2): Code(s): E11.9 - Type 2 diabetes mellitus without complications Status: Chronic Assessment and Plan: * follow accu-cheks * glycemic control per hospitalists Will continue to follow. Subjective Date/time seen: 09/11/23 12:30 Interval history: Follow-up for end stage renal disease on hemodialysis. Mental status has improved significantly -- more awake and alert as well as conversive but still somewhat confused; and daughter confirm this; no issues/events overnight or earlier today; no apparent distress noted; states did not eat much of his lunch but nursing reports he did eat better with breakfast. Exam Narrative: General: chronically ill appearing male in NAD Heart: normal S1 and S2; no rub Lungs: coarse breath sounds Abdomen: soft, nontender, nondistended, positive bowel sounds Extremities: no cyanosis or clubbing; right AKA Skin: left foot dark with necrotic toe wounds Objective Data Vital Signs Vital Signs: Vital Signs Temp Pulse Resp BP Pulse Ox O2 Del Method FiO2 09/11/23 12:00 97.9 F 69 17 138/66 98 09/11/23 05:05 96.9 F L 70 16 124/67 99 09/11/23 04:00 105 H 09/11/23 00:35 97 09/10/23 20:00 91 16 97 Room Air 21 09/10/23 20:00 107 H 09/11/23 00:00 91 09/10/23 22:00 96.6 F L 87 16 129/63 97 09/10/23 16:00 107 H Intake/Output Intake/Output: Intake & Output 09/08/23 09/09/23 10
--- NOTE | 2023-09-11 12:30 | PM.PNNEP ---
Progress Note: A&P Assessment and Plan (1) End stage renal disease: Code(s): N18.6 - End stage renal disease Status: Chronic Assessment and Plan: HD yesterday continue outpatient schedule of M/W/F missed treatment on Tuesday (09/07) this week (did no have appropriate equipment for parish lift to be moved to chair in dialysis unit) outpatient dialysis done at [facility] under the care of Dr. Wesley Santiago follow electrolytes, volume status, and clearance (2) Altered mental status: Code(s): R41.82 - Altered mental status, unspecified Status: Acute Assessment and Plan: still confused but much more awake/alert thought to be secondary to infection (pneumonia +/- left foot wounds +/- decubitus ulcer) possible component of uremia (since missed a dialysis treatment)? follow culture data on antibiotics CT of head noted follow mentation (3) Pneumonia: Code(s): J18.9 - Pneumonia, unspecified organism Status: Acute Assessment and Plan: suspect based on imaging to date on broad-spectrum antibiotics follow cultures monitor respiratory status (4) Atrial fibrillation: Code(s): I48.91 - Unspecified atrial fibrillation Status: Chronic Assessment and Plan: rate control strategy already on anticoagulation (5) Anemia: Code(s): D64.9 - Anemia, unspecified Status: Chronic Assessment and Plan: due to ESRD and acute illness Epogen with HD follow trend of H/H (6) HTN (hypertension): Code(s): I10 - Essential (primary) hypertension Status: Chronic Assessment and Plan: reasonable control follow trend of hemodynaics (7) DM2 (diabetes mellitus, type 2): Code(s): E11.9 - Type 2 diabetes mellitus without complications Status: Chronic Assessment and Plan: follow accu-cheks glycemic control per hospitalists Will continue to follow. Subjective Date/time seen: 09/11/23 12:30 Interval history: Follow-up for end stage renal disease on hemodialysis. Mental status has improved significantly -- more awake and alert as well as conversive but still somewhat confused; and daughter confirm this; no issues/events overnight or earlier today; no apparent distress noted; states did not eat much of his lunch but nursing reports he did eat better with breakfast. Exam Narrative: General: chronically ill appearing male in NAD Heart: normal S1 and S2; no rub Lungs: coarse breath sounds Abdomen: soft, nontender, nondistended, positive bowel sounds Extremities: no cyanosis or clubbing; right AKA Skin: left foot dark with necrotic toe wounds Objective Data Vital Signs Vital Signs: Vital Signs Temp Pulse Resp BP Pulse Ox O2 Del Method FiO2 09/11/23 12:00 97.9 F 69 17 138/66 98 09/11/23 05:05 96.9 F L 70 16 124/67 99 09/11/23 04:00 105 H 09/11/23 00:35 97 09/10/23 20:00 91 16 97 Room Air 21 09/10/23 20:00 107 H 09/11/23 00:00 91 09/10/23 22:00 96.6 F L 87 16 129/63 97 09/10/23 16:00 107 H Intake/Output Intake/Output: Intake & Output 09/08/23 09/09/23 09/10/23 09/11/23 23:59 23:59 23:59 23:59 Intake Total 1454 790 9115 250 Output Total 40 908 500 Balance 1260 57 1772 -250 Meds/Results Medications: Active Medications Generic Name Dose Route Start Last Admin Trade Name Freq PRN Reason Stop Dose Admin Acetaminophen 500 mg 09/09/23 01:19 09/11/23 12:56 Acetaminophen 500 Mg Tablet PO 500 mg Q6H PRN Administration Pain 1-6 Apixaban 5 mg 09/09/23 09:00 09/11/23 09:48 Apixaban 5 Mg Tablet PO 5 mg Q12HR AURELIO Administration Aspirin 81 mg 09/09/23 09:00 09/11/23 09:49 Aspirin 81 Mg Enteric Tablet PO 10/09/23 08:59 81 mg DAILY AURELIO Administration Atorvastatin Calcium 40 mg 09/09/23 21:00 09/10/23 20:23 Atorvastat
[2023-09-11] MEDS: POTASSIUM CHLORIDE 20 MEQ ER TABLET PO ×3 (12:44→16:57)
[2023-09-11] MEDS: INSULIN ASPART (*BKC) 100 UNITS/ML SUB-Q (12:46)
[2023-09-11] MEDS: ACETAMINOPHEN 500 MG TABLET PO (12:56)
[2023-09-11 15:10] LABS: Phosphorus 3.6 mg/dL (2.5-4.5)
[2023-09-11 16:39] LABS: Glucose Point of Care 118 mg/dl (65-105)
[2023-09-11 20:55] LABS: Glucose Point of Care 139 mg/dl (65-105)
[2023-09-11] MEDS: ATORVASTATIN 40 MG TABLET PO (21:09)
[2023-09-11] MEDS: FINASTERIDE 5 MG TABLET PO (21:09)
[2023-09-12] VITALS (29 sets, daily range): BP systolic 82–172; BP diastolic 37–157; PULSE 66–157; RESP 16–22; TEMP 36–37.4; O2SAT 97–100
[2023-09-12] MEDS: CEFEPIME 0.5 GM in DEXTROSE 5% IN WATER 50 ML IVPB (04:42)
[2023-09-12 06:36] LABS: Hematocrit 33.5 % (42.0-52.0); Hemoglobin 10.5 g/dL (14.0-18.0); Mean Corpuscular HGB Conc 31.3 g/dl (32-36); Mean Corpuscular Hemoglobin 32.7 pg (26-34); Mean Corpuscular Volume 104.4 fl (80-100); Platelet Count Result 356 k/mm3 (150-375); Red Blood Count 3.21 M/mm3 (4.6-6.20); Red Cell Distribution Width 17.5 % (11.5-14.5); White Blood Count 10.7 K/mm3 (4.5-10.0)
[2023-09-12 06:37] LABS: Basophils Absolute Auto 0.1 K/mm3 (0.0-0.1); Basophils Percent Auto 1.2 % (0.2-1.2); Eosinophils Absolute Auto 0.6 K/mm3 (0-0.3); Eosinophils Percent Auto 5.4 % (0-4.4); Immature Granulocyte Absolute 0.06 K/mm3 (0.00-0.031); Immature Granulocyte Percent A 0.6 % (0-0.5); Lymphocytes Absolute Auto 2.77 K/mm3 (0.9-3.2); Mean Platelet Volume 8.8 fl (7.4-10.4); Monocytes Absolute Auto 0.9 K/mm3 (0.1-0.6); Monocytes Percent Auto 8.1 % (2.6-8.5); Neutrophils Absolute Auto 6.3 K/mm3 (1.3-6.7); Neutrophils Percent Auto 58.7 % (45.5-73.1)
[2023-09-12 06:51] LABS: Albumin Level 3.5 g/dL (3.5-5.1); Anion Gap 13 mmol/L (8-16); Blood Urea Nitrogen 55 mg/dL (9-20); Calcium 9.9 mg/dL (8.4-10.2); Carbon Dioxide 21 mmol/L (22-30); Chloride 108 mmol/L (98-107); Estimated CRCL calculation 9 ml/min; Estimated Glomerular Filt Rate 7; Glucose 134 mg/dL (65-110); Magnesium 2.5 mg/dL (1.6-2.3); Phosphorus 4.3 mg/dL (2.5-4.5); Potassium 3.5 mmol/L (3.4-5.0); Sodium 142 mmol/L (137-145)
[2023-09-12 07:06] LABS: Vancomycin Random 9.4 ug/mL (10-20)
[2023-09-12 07:48] LABS: Glucose Point of Care 137 mg/dl (65-105)
--- NOTE | 2023-09-12 08:52 | PC.NURSE ---
Dr Castillo on floor ans notified of patient in dialysis on tele with Hr fluctuating 130's 140's afib/flutter. Bp 137/81.
--- NOTE | 2023-09-12 09:31 | P.PNNP_ITS ---
Progress Note: A&P Assessment and Plan (1) End stage renal disease: Code(s): N18.6 - End stage renal disease Status: Chronic Assessment and Plan: * HD today * continue outpatient schedule of M/W/ * outpatient dialysis done at [facility] under the care of Dr. Wesley Santiago * follow electrolytes, volume status, and clearance (2) Altered mental status: Code(s): R41.82 - Altered mental status, unspecified Status: Acute Assessment and Plan: * still confused (and continues to fluctuate) * thought to be secondary to infection (pneumonia +/- left foot wounds +/- decubitus ulcer) * possible component of uremia (since missed a dialysis treatment)? * follow culture data * on antibiotics * CT of head noted * follow mentation (3) Pneumonia: Code(s): J18.9 - Pneumonia, unspecified organism Status: Acute Assessment and Plan: * suspect based on imaging to date * on broad-spectrum antibiotics * follow cultures * monitor respiratory status (4) Atrial fibrillation: Code(s): I48.91 - Unspecified atrial fibrillation Status: Chronic Assessment and Plan: * rate control strategy * already on anticoagulation (5) Anemia: Code(s): D64.9 - Anemia, unspecified Status: Chronic Assessment and Plan: * due to ESRD and acute illness * Epogen with HD * follow trend of H/H (6) HTN (hypertension): Code(s): I10 - Essential (primary) hypertension Status: Chronic Assessment and Plan: * reasonable control * follow trend of hemodynaics (7) DM2 (diabetes mellitus, type 2): Code(s): E11.9 - Type 2 diabetes mellitus without complications Status: Chronic Assessment and Plan: * follow accu-cheks * glycemic control per hospitalists Will continue to follow. Subjective Date/time seen: 09/12/23 09:31 Interval history: Follow-up for end stage renal disease on hemodialysis. Tolerating dialysis treatment at the time my visit (seen on HD at 9:15AM); fluctuating hemodynamics and heart rate at this time and doing better with small fluid boluses; confused currently but in no apparent distress. Exam Narrative: General: chronically ill appearing male in NAD Heart: normal S1 and S2; no rub Lungs: clear anteriorly Abdomen: soft, nontender, nondistended, positive bowel sounds Extremities: no cyanosis or clubbing; right AKA Skin: left foot dark with necrotic toe wounds noted Objective Data Vital Signs Vital Signs: Vital Signs Temp Pulse Resp BP Pulse Ox O2 Del Method 09/12/23 09:30 120 H 82/51 L 09/12/23 10:03 123 H 172/157 H 09/12/23 09:00 124 H 123/81 09/12/23 09:03 146 H 09/12/23 10:15 147 H 149/94 H 09/12/23 09:45 120 H 111/69 09/12/23 08:45 143 H 127/37 L 09/12/23 08:38 87 137/81 09/12/23 08:35 98.1 F 85 18 132/68 09/12/23 08:00 100 Room Air 09/12/23 06:00 96.8 F L 66 16 147/77 H 100 09/12/23 04:00 90 09/11/23 22:00 97.2 F L 96 18 132/76 99 09/11/23 20:00 84 09/11/23 16:09 90 09/11/23 16:01 98 09/11/23 14:00 97.9 F 69 17 138/66 98 Intake/Output Intake/Output
--- NOTE | 2023-09-12 09:31 | PM.PNNEP ---
Progress Note: A&P Assessment and Plan (1) End stage renal disease: Code(s): N18.6 - End stage renal disease Status: Chronic Assessment and Plan: HD today continue outpatient schedule of M/W/ outpatient dialysis done at [facility] under the care of Dr. Wesley Santiago follow electrolytes, volume status, and clearance (2) Altered mental status: Code(s): R41.82 - Altered mental status, unspecified Status: Acute Assessment and Plan: still confused (and continues to fluctuate) thought to be secondary to infection (pneumonia +/- left foot wounds +/- decubitus ulcer) possible component of uremia (since missed a dialysis treatment)? follow culture data on antibiotics CT of head noted follow mentation (3) Pneumonia: Code(s): J18.9 - Pneumonia, unspecified organism Status: Acute Assessment and Plan: suspect based on imaging to date on broad-spectrum antibiotics follow cultures monitor respiratory status (4) Atrial fibrillation: Code(s): I48.91 - Unspecified atrial fibrillation Status: Chronic Assessment and Plan: rate control strategy already on anticoagulation (5) Anemia: Code(s): D64.9 - Anemia, unspecified Status: Chronic Assessment and Plan: due to ESRD and acute illness Epogen with HD follow trend of H/H (6) HTN (hypertension): Code(s): I10 - Essential (primary) hypertension Status: Chronic Assessment and Plan: reasonable control follow trend of hemodynaics (7) DM2 (diabetes mellitus, type 2): Code(s): E11.9 - Type 2 diabetes mellitus without complications Status: Chronic Assessment and Plan: follow accu-cheks glycemic control per hospitalists Will continue to follow. Subjective Date/time seen: 09/12/23 09:31 Interval history: Follow-up for end stage renal disease on hemodialysis. Tolerating dialysis treatment at the time my visit (seen on HD at 9:15AM); fluctuating hemodynamics and heart rate at this time and doing better with small fluid boluses; confused currently but in no apparent distress. Exam Narrative: General: chronically ill appearing male in NAD Heart: normal S1 and S2; no rub Lungs: clear anteriorly Abdomen: soft, nontender, nondistended, positive bowel sounds Extremities: no cyanosis or clubbing; right AKA Skin: left foot dark with necrotic toe wounds noted Objective Data Vital Signs Vital Signs: Vital Signs Temp Pulse Resp BP Pulse Ox O2 Del Method 09/12/23 09:30 120 H 82/51 L 09/12/23 10:03 123 H 172/157 H 09/12/23 09:00 124 H 123/81 09/12/23 09:03 146 H 09/12/23 10:15 147 H 149/94 H 09/12/23 09:45 120 H 111/69 09/12/23 08:45 143 H 127/37 L 09/12/23 08:38 87 137/81 09/12/23 08:35 98.1 F 85 18 132/68 09/12/23 08:00 100 Room Air 09/12/23 06:00 96.8 F L 66 16 147/77 H 100 09/12/23 04:00 90 09/11/23 22:00 97.2 F L 96 18 132/76 99 09/11/23 20:00 84 09/11/23 16:09 90 09/11/23 16:01 98 09/11/23 14:00 97.9 F 69 17 138/66 98 Intake/Output Intake/Output: Intake & Output 09/09/23 09/10/23 09/11/23 09/12/23 23:59 23:59 23:59 23:59 Intake Total 965 1772 1050 100 Output Total 908 500 Balance 57 1772 550 100 Meds/Results Medications: Active Medications Generic Name Dose Route Start Last Admin Trade Name Ammonq PRN Reason Stop Dose Admin Acetaminophen 500 mg 09/09/23 01:19 09/11/23 12:56 Acetaminophen 500 Mg Tablet PO 500 mg Q6H PRN Administration Pain 1-6 Apixaban 5 mg 09/09/23 09:00 09/11/23 21:09 Apixaban 5 Mg Tablet PO 5 mg Q12HR AURELIO Administration Aspirin 81 mg 09/09/23 09:00 09/11/23 09:49 Aspirin 81 Mg Enteric Tablet PO 10/09/23 08:59 81 mg DAILY AURELIO Administration Atorvastatin Calcium 40 mg 09/09/23 21:0
--- NOTE | 2023-09-12 10:43 | PM.IMPN ---
Progress Note: A&P Assessment and Plan (1) Altered mental status: Code(s): R41.82 - Altered mental status, unspecified Status: Acute (2) Anemia: Code(s): D64.9 - Anemia, unspecified Status: Chronic (3) ESRD (end stage renal disease) on dialysis: Code(s): N18.6 - End stage renal disease; Z99.2 - Dependence on renal dialysis Status: Acute (4) Pneumonia: Code(s): J18.9 - Pneumonia, unspecified organism Status: Acute Plan Plan 73M w/ PMH BPH, HTN, NIDDM, ESRD MWF, HLD, DWAYNE, seizure disorder, a fib on eliquis, depression and anxiety presents from home. Pt was released recenlty from rehab and then returned home. noted he was too weak to get up again. She notes he has been progressively declining for many months and doesn't think she can take care of him anymore. They have a special needs child at home as well. Admitted on 09/08 for weakness and HCAP 1) acute encephalopathy - no evidence of acute CVA on CT head - likely 2/2 to pneumonia and multiple comorbiddites. he waxes and wanes and is sensitive to blood pressure changes and dehydration. overall he is improved. 2) HCAP - cefepime vancomycin started 09/08. continue for another day considering procal went up and leukocytosis again on 09/12. check procal again in AM - f/u blood cultures, NGTD 3) weakness - improved. PT/OT and plan for SNF placement for rehab. 4) HTN - resume home meds 5) ESRD MWF - resume dialysis, received on 09/09 and 09/12 - 09/12 during dialysis low BP and a fib w/ RVR to 150. he responded to small 250cc bolus, gave 500cc total ultimately. no fluid taken off during dialysis, decision made with Dr. Jaquez - hypokalemia, gave gentle doses of PO KCL. resolved. - nephrology on consult 6) seizure disorder - ctm, no seizure activity 7) a fib on eliquis - cont tele monitor. cont eliquis - 09/12 developed a fib rvr 2/2 hypovolemia. responded to fluids. 8) hypovolemia - cautious IV fluid administration. responded to fluids on 09/12. monitor tele and vitals. 9) NIDDM - accuchecks and sliding scale. FEN: saline lock IV GI prophylaxis: not indicated DVT prophylaxis: on eliquis Lines: pIV and fistula Code Status: DNR Dispo: improved, but needs more monitoring of HCAP, leukocytosis, volume status. plan to d/c to rehab again. More than 35 minutes spent on chart review, patient interaction and assessment and plan. Subjective Date/time seen: 09/12/23 10:43 Interval history: patient seen in dialysis. he is slightly confused again, appears very dry at the mouth. a fib with RVR into 140's with low BP. his BP and HR improved with small 250cc bolus. he is a poor historian at the moment but denies complaints including chest pain or shortness of breath Review of Systems Review of Systems: All systems reviewed & are unremarkable except as noted in HPI and below Exam Const: General: comfortable and no acute distress HENMT: Mouth: No moist mucous membranes and Yes dry mucous membranes Eyes: Pupils: Equal, round and reactive pupils present Resp: Effort & Inspection: normal respiratory effort Auscultation: clear to auscultation bilaterally Cardio: Rate: tachycardic GI: GI Palp: Yes Soft to palpation Auscultation: normal bowel sounds Extrem: General: no edema Objective Data Vital Signs Vital Signs: Vital Signs - 24 hr 09/11/23 14:00 09/11/23 16:01 09/11/23 16:09 Temperature 97.9 F Pulse Rate 69 98 90 Respiratory Rate 17 Blood Pressure 138/66 Pulse Oximetry 98 Oxygen Delivery 09/11/23 20:00 09/11/23 22:00 09/12/23 04:00 Temperature 97.2 F L Pulse Rate 84 96 90 Respiratory Rate 18 Blood Pressure 132/76 Pulse Oximetry 99 Oxygen Delivery 09/12/23 06:00 09/12/23 08:00 09/12/23 08:35 Temperature 96.8 F L 98.1 F Pulse Rate 66 85 Respiratory Rate 16 18 Blood Pressure 147/77 H 132/68 Pulse Oximetry 100 100 Oxygen Delivery Room Air 09/12/23 0
[2023-09-12 11:31] LABS: Glucose Point of Care 105 mg/dl (65-105)
[2023-09-12] MEDS: EPOETIN ALFA-EPBX 10,000 UNITS/ML VIAL 10000 UNITS IV PUSH (11:55)
[2023-09-12] MEDS: SODIUM CHLORIDE 0.9% IV 1,000 ML 999 ML IV CONT (11:56)
[2023-09-12] MEDS: PRAMIPEXOLE 0.5 MG TABLET PO ×2 (12:28→21:07)
[2023-09-12] MEDS: SENNA/DOCUSATE SODIUM TABLET 1 TAB PO ×2 (12:28→21:09)
[2023-09-12] MEDS: ASPIRIN 81 MG ENTERIC TABLET PO (12:28)
[2023-09-12] MEDS: MIDODRINE HCL 10 MG TABLET 20 MG PO ×2 (12:28→16:45)
[2023-09-12] MEDS: APIXABAN 5 MG TABLET PO ×2 (12:28→21:08)
[2023-09-12] MEDS: SEVELAMER CARBONATE 800 MG TABLET PO ×2 (12:29→16:45)
[2023-09-12] MEDS: SODIUM CHLORIDE 0.9% IV 250 ML 999 ML IV CONT (13:22)
--- NOTE | 2023-09-12 13:39 | PC.NURSE ---
1315 Dr Castillo notified of patient back from dialysis and heart rate still in 140's bp 96/72 RA sat 95%. Patient restless and agitated, keeps picking at iv and left hand dressing. at bedside.
[2023-09-12] MEDS: METOPROLOL TARTRATE INJ 5 MG/5 ML VIAL 2.5 MG IV PUSH (15:05)
[2023-09-12 16:29] LABS: Glucose Point of Care 104 mg/dl (65-105)
[2023-09-12] MEDS: VANCOMYCIN 750 MG/NS 250 ML 750 MG/250 ML BAG 250 MG IVPB (16:46)
[2023-09-12] MEDS: METOPROLOL TARTRATE 12.5 MG TABLET PO (21:08)
[2023-09-12] MEDS: FINASTERIDE 5 MG TABLET PO (21:09)
[2023-09-12] MEDS: ATORVASTATIN 40 MG TABLET PO (21:09)
[2023-09-12 21:26] LABS: Glucose Point of Care 149 mg/dl (65-105)
[2023-09-13] VITALS (7 sets, daily range): BP systolic 106–126; BP diastolic 59–91; PULSE 64–115; RESP 12–20; TEMP 36.4–36.8; O2SAT 97–98
[2023-09-13] MEDS: CEFEPIME 0.5 GM in DEXTROSE 5% IN WATER 50 ML IVPB (04:37)
[2023-09-13] MEDS: METOPROLOL TARTRATE 12.5 MG TABLET PO ×2 (08:00→21:03)
[2023-09-13] MEDS: APIXABAN 5 MG TABLET PO ×2 (08:00→21:02)
[2023-09-13] MEDS: SENNA/DOCUSATE SODIUM TABLET 1 TAB PO ×2 (08:00→21:06)
[2023-09-13] MEDS: MIDODRINE HCL 10 MG TABLET 20 MG PO ×3 (08:00→16:05)
[2023-09-13] MEDS: ASPIRIN 81 MG ENTERIC TABLET PO (08:00)
[2023-09-13] MEDS: SEVELAMER CARBONATE 800 MG TABLET PO ×3 (08:00→16:05)
[2023-09-13] MEDS: PRAMIPEXOLE 0.5 MG TABLET PO ×2 (08:00→21:06)
[2023-09-13 08:02] LABS: Glucose Point of Care 186 mg/dl (65-105)
[2023-09-13 09:22] LABS: Basophils Absolute Auto 0.1 K/mm3 (0.0-0.1); Eosinophils Absolute Auto 0.3 K/mm3 (0-0.3); Eosinophils Percent Auto 3.3 % (0-4.4); Hematocrit 37.6 % (42.0-52.0); Hemoglobin 11.4 g/dL (14.0-18.0); Immature Granulocyte Absolute 0.04 K/mm3 (0.00-0.031); Immature Granulocyte Percent A 0.5 % (0-0.5); Lymphocytes Absolute Auto 2.07 K/mm3 (0.9-3.2); Lymphocytes Percent Auto 24.7 % (18.3-44.2); Mean Corpuscular HGB Conc 30.3 g/dl (32-36); Mean Corpuscular Hemoglobin 32.4 pg (26-34); Mean Corpuscular Volume 106.8 fl (80-100); Monocytes Absolute Auto 0.7 K/mm3 (0.1-0.6); Monocytes Percent Auto 8.6 % (2.6-8.5); Neutrophils Absolute Auto 5.2 K/mm3 (1.3-6.7); Neutrophils Percent Auto 61.9 % (45.5-73.1); Platelet Count Result 371 k/mm3 (150-375); Red Blood Count 3.52 M/mm3 (4.6-6.20); Red Cell Distribution Width 18.4 % (11.5-14.5); White Blood Count 8.4 K/mm3 (4.5-10.0)
[2023-09-13 09:34] LABS: Albumin Level 3.7 g/dL (3.5-5.1); Anion Gap 10 mmol/L (8-16); Blood Urea Nitrogen 31 mg/dL (9-20); Calcium 9.6 mg/dL (8.4-10.2); Carbon Dioxide 31 mmol/L (22-30); Chloride 99 mmol/L (98-107); Estimated CRCL calculation 16 ml/min; Estimated Glomerular Filt Rate 14; Glucose 169 mg/dL (65-110); Potassium 2.7 mmol/L (3.4-5.0); Sodium 140 mmol/L (137-145)
--- NOTE | 2023-09-13 10:09 | PM.PNNEP ---
Progress Note: A&P Assessment and Plan (1) End stage renal disease: Code(s): N18.6 - End stage renal disease Status: Chronic Assessment and Plan: HD tomorrow continue outpatient schedule of M/W/ outpatient dialysis done at [facility] under the care of Dr. Wesley Santiago follow electrolytes, volume status, and clearance (2) Altered mental status: Code(s): R41.82 - Altered mental status, unspecified Status: Acute Assessment and Plan: still confused (and continues to fluctuate) thought to be secondary to infection (pneumonia +/- left foot wounds +/- decubitus ulcer) possible component of uremia (since missed a dialysis treatment)? follow culture data on antibiotics CT of head noted follow mentation (3) Hypokalemia: Code(s): E87.6 - Hypokalemia Status: Acute Assessment and Plan: suspect due to poor oral intake liberalize diet replete PRN follow repeat K+ levels (4) Pneumonia: Code(s): J18.9 - Pneumonia, unspecified organism Status: Acute Assessment and Plan: suspect based on imaging to date on broad-spectrum antibiotics follow cultures monitor respiratory status (5) Atrial fibrillation: Code(s): I48.91 - Unspecified atrial fibrillation Status: Chronic Assessment and Plan: rate control strategy already on anticoagulation (6) Anemia: Code(s): D64.9 - Anemia, unspecified Status: Chronic Assessment and Plan: due to ESRD and acute illness Epogen with HD follow trend of H/H (7) HTN (hypertension): Code(s): I10 - Essential (primary) hypertension Status: Chronic Assessment and Plan: reasonable control follow trend of hemodynaics (8) DM2 (diabetes mellitus, type 2): Code(s): E11.9 - Type 2 diabetes mellitus without complications Status: Chronic Assessment and Plan: follow accu-cheks glycemic control per hospitalists Will continue to follow. Subjective Date/time seen: 09/13/23 10:09 Interval history: Follow-up for end stage renal disease on hemodialysis. Tolerated dialysis treatment yesterday but had issues with tachycaridac (afib) and hypotension that seems to improve with fluid boluses during HD treatment; still confused at the time of my visit but still more awake/alert than on admission. Exam Narrative: General: chronically ill appearing male in [place] Heart: normal S1 and S2; no rub Lungs: clear anteriorly Abdomen: soft, nontender, nondistended, positive bowel sounds Extremities: no cyanosis or clubbing; right AKA Skin: left foot - dark with necrotic toe wounds present Objective Data Vital Signs Vital Signs: Vital Signs Temp Pulse Resp BP Pulse Ox O2 Del Method 09/13/23 08:00 85 09/13/23 08:00 Room Air 09/13/23 08:00 88 09/13/23 06:00 97.8 F 90 20 125/59 L 98 09/13/23 04:00 95 09/13/23 00:00 115 H 09/12/23 21:08 103 H 09/12/23 21:12 97.6 F 72 16 114/60 97 09/12/23 21:08 72 09/12/23 16:00 91 09/12/23 15:05 115 H 09/12/23 14:26 112/80 09/12/23 14:00 88/75 L 09/12/23 12:00 156 H 09/12/23 12:46 98/72 L 09/12/23 12:07 98.1 F 157 H 22 H 129/92 H 09/12/23 12:02 141 H 126/60 09/12/23 11:45 155 H 98/69 L Intake/Output Intake/Output: Intake & Output 09/10/23 09/11/23 09/12/23 09/13/23 23:59 23:59 23:59 23:59 Intake Total 1772 1050 980 220 Output Total 500 390 Balance 1772 550 590 220 Meds/Results Medications: Active Medications Generic Name Dose Route Start Last Admin Trade Name Freq PRN Reason Stop Dose Admin Acetaminophen 500 mg 09/09/23 01:19 09/11/23 12:56 Acetaminophen 500 Mg Tablet PO 500 mg Q6H PRN Administration Pain 1-6 Apixaban 5 mg 09/09/23 09:00 09/13/23 08:00 Apixaban 5 Mg Tablet PO 5 mg Q
--- NOTE | 2023-09-13 10:09 | P.PNNP_ITS ---
Progress Note: A&P Assessment and Plan (1) End stage renal disease: Code(s): N18.6 - End stage renal disease Status: Chronic Assessment and Plan: * HD tomorrow * continue outpatient schedule of M// * outpatient dialysis done at [facility] under the care of Dr. Wesley Santiago * follow electrolytes, volume status, and clearance (2) Altered mental status: Code(s): R41.82 - Altered mental status, unspecified Status: Acute Assessment and Plan: * still confused (and continues to fluctuate) * thought to be secondary to infection (pneumonia +/- left foot wounds +/- decubitus ulcer) * possible component of uremia (since missed a dialysis treatment)? * follow culture data * on antibiotics * CT of head noted * follow mentation (3) Hypokalemia: Code(s): E87.6 - Hypokalemia Status: Acute Assessment and Plan: * suspect due to poor oral intake * liberalize diet * replete PRN * follow repeat K+ levels (4) Pneumonia: Code(s): J18.9 - Pneumonia, unspecified organism Status: Acute Assessment and Plan: * suspect based on imaging to date * on broad-spectrum antibiotics * follow cultures * monitor respiratory status (5) Atrial fibrillation: Code(s): I48.91 - Unspecified atrial fibrillation Status: Chronic Assessment and Plan: * rate control strategy * already on anticoagulation (6) Anemia: Code(s): D64.9 - Anemia, unspecified Status: Chronic Assessment and Plan: * due to ESRD and acute illness * Epogen with HD * follow trend of H/H (7) HTN (hypertension): Code(s): I10 - Essential (primary) hypertension Status: Chronic Assessment and Plan: * reasonable control * follow trend of hemodynaics (8) DM2 (diabetes mellitus, type 2): Code(s): E11.9 - Type 2 diabetes mellitus without complications Status: Chronic Assessment and Plan: * follow accu-cheks * glycemic control per hospitalists Will continue to follow. Subjective Date/time seen: 09/13/23 10:09 Interval history: Follow-up for end stage renal disease on hemodialysis. Tolerated dialysis treatment yesterday but had issues with tachycaridac (afib) and hypotension that seems to improve with fluid boluses during HD treatment; still confused at the time of my visit but still more awake/alert than on admission. Exam 2 Narrative: General: chronically ill appearing male in NAD Heart: normal S1 and S2; no rub Lungs: clear anteriorly Abdomen: soft, nontender, nondistended, positive bowel sounds Extremities: no cyanosis or clubbing; right AKA Skin: left foot - dark with necrotic toe wounds present Objective Data Vital Signs Vital Signs: Vital Signs Temp Pulse Resp BP Pulse Ox O2 Del Method 09/13/23 08:00 85 09/13/23 08:00 Room Air 09/13/23 08:00 88 09/13/23 06:00 97.8 F 90 20 125/59 L 98 09/13/23 04:00 95 09/13/23 00:00 115 H 09/12/23 21:08 103 H 09/12/23 21:12 97.6 F 72 16 114/60 97 09/12/23 21:08 72 09/12/23 16:00 91 09/12/23 15:05 115 H 09/12/23 14:26 112/80 09/12/23 14:00 88/75 L 09/12/23 1
[2023-09-13 10:11] LABS: Procalcitonin 1.6 ng/mL
[2023-09-13] MEDS: POTASSIUM CHLORIDE 20 MEQ PACKET (FOR LIQUID) 40 MEQ PO ×2 (10:22→16:05)
--- NOTE | 2023-09-13 10:40 | PCNFU ---
Nutrition Follow-Up Complete: Increased nutrient needs related to dialysis as evidenced by ESRD with hemodialysis Goal:PO intake 75% of meals Pt progressing towards goal. Continue with same goal. Pt current nutrition is Heart healthy, ensure compact BID, nutrition ice cream BID. Nutrition recommendation: Add BALBINA BID for wound healing Last recorded weight is 76 kg. Bowel Motility: +BM 09/09 Labs Reviewed: BUN:31, CR:4.3, Glu:169 Meds Noted: novolog, eliquis Skin: new pressure area to sacrum Additional Notes: Pt continues on a heart healthy diet, intake varied from 25-75%, noted supplements in place. Also noted new area of skin breakdown. Recommend BALBINA BID for wound healing. Monitor intake, wt, labs. Follow up in 5 days.
[2023-09-13 11:03] LABS: Anisocytosis 1+ (NORMAL); Platelet Estimate Adequate (Adequate); Schistocytes None Seen (NORMAL)
[2023-09-13 12:14] LABS: Glucose Point of Care 200 mg/dl (65-105)
--- NOTE | 2023-09-13 13:40 | PM.IMPN ---
Progress Note: A&P Assessment and Plan (1) Altered mental status: Code(s): R41.82 - Altered mental status, unspecified Status: Acute Assessment and Plan: SEE BELOW (2) Anemia: Code(s): D64.9 - Anemia, unspecified Status: Chronic (3) ESRD (end stage renal disease) on dialysis: Code(s): N18.6 - End stage renal disease; Z99.2 - Dependence on renal dialysis Status: Acute (4) Pneumonia: Code(s): J18.9 - Pneumonia, unspecified organism Status: Acute Plan 1) acute encephalopathy - no evidence of acute CVA on CT head - likely 2/2 to pneumonia - slow improvement - pt is on iv vanc and cef 2) HCAP - cefepime vancomycin started 09/08. - f/u blood cultures 3) weakness - improved. PT/OT and plan for SNF placement for rehab. 4) HTN - resume home meds 5) ESRD MWF - resume dialysis, received on 09/09 and 09/12 - nephrology on consult 6) seizure disorder - no seizure activity 7) a fib on eliquis - cont tele monitor. cont eliquis - 09/12 developed a fib rvr 2/2 hypovolemia. responded to fluids. 9) NIDDM - accuchecks and sliding scale. 10) Severe hypokalemia add potassium supplements rpt BMP in 4 hours 11) H/o Of left lower extremity wounds old and drying up Subjective Date/time seen: 09/13/23 13:40 Interval history: 73-year-old male with past medical history significant for coronary artery disease status post coronary artery bypass grafting, end-stage renal disease on hemodialysis, atrial fibrillation, type 2 diabetes mellitus, obstructive sleep apnea, seizure disorder.? Patient was brought for evaluation to the emergency room due to altered mental status, generalized weakness, states that has becoming increasingly taxing and cumbersome to care for him at home.? Admitted on 09/08 for weakness and HCAP Pt still appears confused today Review of Systems Review of Systems: Disoriented x3 Exam Const: General: comfortable, no acute distress, well developed, ill appearing, average body habitus, underweight and other (Stuporous) Nutritional Appearance: average body habitus and underweight Orientation/consciousness: patient oriented x3 Other: A&Ox4 today Eyes: General: appearance normal, both eyes and all related structures Pupils: Equal, round and reactive pupils present EOM: EOMs intact bilaterally Resp: Effort & Inspection: normal respiratory effort and able to speak in complete sentences Auscultation: clear to auscultation bilaterally and rales (scant, diffuse) Other: poor respiratory effort Cardio: Jugular venous distension: no JVD Rate: regular rate and tachycardic Rhythm: regular rhythm Heart sounds: S1 normal heart sound present and S2 normal heart sound present GI: Inspection: scaphoid Auscultation: normal bowel sounds Skin: General skin exam: wounds noted (Left lower extremity distal necrotic ulcers to the toes) Rashes: no rashes Wounds: wounds noted (Left lower extremity distal necrotic ulcers to the toes) Neuro: General: patient oriented x3, no focal motor deficits, Unable to assess gait and other (Stuporous) Cranial nerves: Yes Equal, round and reactive pupils present, Yes Bilaterally intact EOM present, Yes facial symmetry and Yes Midline tongue present Cognition (Neuro): abnormal cognition (Stuporous) Gait exam (Neuro): Unable to assess gait Motor exam (neuro): abnormal movements noted Extrem: General: normal to inspection, full ROM, no joint enlargement, no pedal edema and no edema Other: Right AKA Left lower extremity distal necrotic wounds to the toes Objective Data Vital Signs Vital Signs: Vital Signs - 24 hr 09/12/23 14:00 09/12/23 14:26 09/12/23 15:05 Temperature Pulse Rate 115 H Respiratory Rate Blood Pressure 88/75 L 112/80 Pulse Oximetry Oxygen Delivery 09/12/23 16:00 09/12/23 21:08 09/12/23 21:12 Temperature 36.4 C Pulse Rate 91 72 72
[2023-09-13 16:51] LABS: Glucose Point of Care 172 mg/dl (65-105)
[2023-09-13 17:15] LABS: Anion Gap 13 mmol/L (8-16); Blood Urea Nitrogen 38 mg/dL (9-20); Calcium 9.7 mg/dL (8.4-10.2); Carbon Dioxide 27 mmol/L (22-30); Chloride 102 mmol/L (98-107); Estimated CRCL calculation 14 ml/min; Estimated Glomerular Filt Rate 12; Glucose 168 mg/dL (65-110); Potassium 4.4 mmol/L (3.4-5.0); Sodium 142 mmol/L (137-145)
[2023-09-13 20:25] LABS: Glucose Point of Care 203 mg/dl (65-105)
[2023-09-13] MEDS: FINASTERIDE 5 MG TABLET PO (21:06)
[2023-09-13] MEDS: ATORVASTATIN 40 MG TABLET PO (21:06)
[2023-09-14] VITALS (23 sets, daily range): BP systolic 83–160; BP diastolic 56–86; PULSE 54–139; RESP 14–20; TEMP 36.2–37.2; O2SAT 96–99
[2023-09-14] MEDS: CEFEPIME 0.5 GM in DEXTROSE 5% IN WATER 50 ML IVPB (03:04)
[2023-09-14 06:46] LABS: Albumin Level 3.9 g/dL (3.5-5.1); Anion Gap 10 mmol/L (8-16); Blood Urea Nitrogen 43 mg/dL (9-20); Calcium 9.9 mg/dL (8.4-10.2); Carbon Dioxide 29 mmol/L (22-30); Chloride 99 mmol/L (98-107); Estimated CRCL calculation 12 ml/min; Estimated Glomerular Filt Rate 10; Glucose 186 mg/dL (65-110); Phosphorus 4.9 mg/dL (2.5-4.5); Potassium 3.2 mmol/L (3.4-5.0); Sodium 138 mmol/L (137-145)
[2023-09-14 07:14] LABS: Vancomycin Random 14.4 ug/mL (10-20)
[2023-09-14 08:05] LABS: Glucose Point of Care 183 mg/dl (65-105)
[2023-09-14] MEDS: MIDODRINE HCL 10 MG TABLET 20 MG PO ×3 (08:38→18:44)
[2023-09-14 11:43] LABS: Glucose Point of Care 121 mg/dl (65-105)
[2023-09-14] MEDS: SODIUM CHLORIDE 0.9% IV 1,000 ML 999 ML IV CONT (11:54)
--- NOTE | 2023-09-14 12:01 | P.PNNP_ITS ---
Progress Note: A&P Assessment and Plan (1) End stage renal disease: Code(s): N18.6 - End stage renal disease Status: Chronic Assessment and Plan: * HD today * continue outpatient schedule of M/W/ * outpatient dialysis done at [facility] under the care of Dr. Wesley Santiago * follow electrolytes, volume status, and clearance (2) Altered mental status: Code(s): R41.82 - Altered mental status, unspecified Status: Acute Assessment and Plan: * still confused (and continues to fluctuate) * thought to be secondary to infection (pneumonia +/- left foot wounds +/- decubitus ulcer) * possible component of uremia (since missed a dialysis treatment)? * follow culture data * on antibiotics * CT of head noted * follow mentation (3) Hypokalemia: Code(s): E87.6 - Hypokalemia Status: Acute Assessment and Plan: * suspect due to poor oral intake * liberalize diet * replete PRN and adjust dialysis to compensate * follow repeat K+ levels (4) Pneumonia: Code(s): J18.9 - Pneumonia, unspecified organism Status: Acute Assessment and Plan: * suspect based on imaging to date * on antibiotics * follow cultures * monitor respiratory status (5) Atrial fibrillation: Code(s): I48.91 - Unspecified atrial fibrillation Status: Chronic Assessment and Plan: * rate control strategy * already on anticoagulation (6) Anemia: Code(s): D64.9 - Anemia, unspecified Status: Chronic Assessment and Plan: * due to ESRD and acute illness * Epogen with HD * follow trend of H/H (7) HTN (hypertension): Code(s): I10 - Essential (primary) hypertension Status: Chronic Assessment and Plan: * reasonable control * follow trend of hemodynaics (8) DM2 (diabetes mellitus, type 2): Code(s): E11.9 - Type 2 diabetes mellitus without complications Status: Chronic Assessment and Plan: * follow accu-cheks * glycemic control per hospitalists Will continue to follow. Subjective Date/time seen: 09/14/23 12:01 Interval history: Follow-up for end stage renal disease on hemodialysis. Tolerating dialysis treatment at the time of my visit (seen on HD at 11:50AM); still remains confused and with poor oral intake; no apparent distress noted; no issues/events overnight or earlier this morning. Exam Narrative: General: chronically ill appearing male in NAD Heart: normal S1 and S2; no rub Lungs: clear anteriorly Abdomen: soft, nontender, nondistended, positive bowel sounds Extremities: no cyanosis or clubbing; right AKA Skin: left foot - dark with necrotic toe wounds apparent Objective Data Vital Signs Vital Signs: Vital Signs Temp Pulse Resp BP Pulse Ox O2 Del Method 09/14/23 12:00 90 101/78 09/14/23 11:45 86 160/70 H 09/14/23 11:30 76 129/86 09/14/23 11:15 104 H 98/58 L 09/14/23 08:30 Room Air 09/14/23 10:45 92 106/64 09/14/23 10:00 82 97/68 L 09/14/23 11:00 67 86/60 L 09/14/23 10:15 65 113/64 09/14/23 10:30 82 97/68 L 09/14/23 09:45 67 114/63 09/14/23 09:30 77 99/77 L 09/14/23 09:15 82 117/76
--- NOTE | 2023-09-14 12:01 | PM.PNNEP ---
Progress Note: A&P Assessment and Plan (1) End stage renal disease: Code(s): N18.6 - End stage renal disease Status: Chronic Assessment and Plan: HD today continue outpatient schedule of M// outpatient dialysis done at [facility] under the care of Dr. Wesley Santiago follow electrolytes, volume status, and clearance (2) Altered mental status: Code(s): R41.82 - Altered mental status, unspecified Status: Acute Assessment and Plan: still confused (and continues to fluctuate) thought to be secondary to infection (pneumonia +/- left foot wounds +/- decubitus ulcer) possible component of uremia (since missed a dialysis treatment)? follow culture data on antibiotics CT of head noted follow mentation (3) Hypokalemia: Code(s): E87.6 - Hypokalemia Status: Acute Assessment and Plan: suspect due to poor oral intake liberalize diet replete PRN and adjust dialysis to compensate follow repeat K+ levels (4) Pneumonia: Code(s): J18.9 - Pneumonia, unspecified organism Status: Acute Assessment and Plan: suspect based on imaging to date on antibiotics follow cultures monitor respiratory status (5) Atrial fibrillation: Code(s): I48.91 - Unspecified atrial fibrillation Status: Chronic Assessment and Plan: rate control strategy already on anticoagulation (6) Anemia: Code(s): D64.9 - Anemia, unspecified Status: Chronic Assessment and Plan: due to ESRD and acute illness Epogen with HD follow trend of H/H (7) HTN (hypertension): Code(s): I10 - Essential (primary) hypertension Status: Chronic Assessment and Plan: reasonable control follow trend of hemodynaics (8) DM2 (diabetes mellitus, type 2): Code(s): E11.9 - Type 2 diabetes mellitus without complications Status: Chronic Assessment and Plan: follow accu-cheks glycemic control per hospitalists Will continue to follow. Subjective Date/time seen: 09/14/23 12:01 Interval history: Follow-up for end stage renal disease on hemodialysis. Tolerating dialysis treatment at the time of my visit (seen on HD at 11:50AM); still remains confused and with poor oral intake; no apparent distress noted; no issues/events overnight or earlier this morning. Exam Narrative: General: chronically ill appearing male in NAD Heart: normal S1 and S2; no rub Lungs: clear anteriorly Abdomen: soft, nontender, nondistended, positive bowel sounds Extremities: no cyanosis or clubbing; right AKA Skin: left foot - dark with necrotic toe wounds apparent Objective Data Vital Signs Vital Signs: Vital Signs Temp Pulse Resp BP Pulse Ox O2 Del Method 09/14/23 12:00 90 101/78 09/14/23 11:45 86 160/70 H 09/14/23 11:30 76 129/86 09/14/23 11:15 104 H 98/58 L 09/14/23 08:30 Room Air 09/14/23 10:45 92 106/64 09/14/23 10:00 82 97/68 L 09/14/23 11:00 67 86/60 L 09/14/23 10:15 65 113/64 09/14/23 10:30 82 97/68 L 09/14/23 09:45 67 114/63 09/14/23 09:30 77 99/77 L 09/14/23 09:15 82 117/76 09/14/23 08:50 97.5 F L 83 14 125/76 09/14/23 08:58 74 102/72 09/14/23 06:00 97.1 F L 63 16 125/71 99 09/13/23 22:00 98.3 F 67 18 126/91 H 97 09/13/23 21:03 64 Intake/Output Intake/Output: Intake & Output 09/11/23 09/12/23 09/13/23 09/14/23 23:59 23:59 23:59 23:59 Intake Total 1050 980 810 268 Output Total 500 390 0 Balance 550 590 810 268 Meds/Results Medications: Active Medications Generic Name Dose Route Start Last Admin Trade Name Freq PRN Reason Stop Dose Admin Acetaminophen 500 mg 09/09/23 01:19 09/11/23 12:56 Acetaminophen 500 Mg Tablet PO 500 mg Q6H PRN Administration Pain 1-6 Apixaban 5 mg 09/09/23 09:00 09/14/23 13:16 Ap
[2023-09-14] MEDS: ASPIRIN 81 MG ENTERIC TABLET PO (13:15)
[2023-09-14] MEDS: SEVELAMER CARBONATE 800 MG TABLET PO ×2 (13:15→18:44)
[2023-09-14] MEDS: METOPROLOL TARTRATE 12.5 MG TABLET PO (13:16)
[2023-09-14] MEDS: APIXABAN 5 MG TABLET PO ×2 (13:16→20:14)
[2023-09-14] MEDS: PRAMIPEXOLE 0.5 MG TABLET PO ×2 (13:17→20:14)
[2023-09-14] MEDS: SENNA/DOCUSATE SODIUM TABLET 1 TAB PO ×2 (13:17→20:14)
[2023-09-14] MEDS: CITALOPRAM HYDROBROMIDE 20 MG TABLET PO (13:17)
[2023-09-14] MEDS: POTASSIUM CHLORIDE 20 MEQ PACKET (FOR LIQUID) 40 MEQ PO ×2 (13:18→18:44)
--- NOTE | 2023-09-14 14:26 | PM.IMPN ---
Progress Note: A&P Assessment and Plan (1) Altered mental status: Code(s): R41.82 - Altered mental status, unspecified Status: Acute Assessment and Plan: SEE BELOW (2) Anemia: Code(s): D64.9 - Anemia, unspecified Status: Chronic (3) ESRD (end stage renal disease) on dialysis: Code(s): N18.6 - End stage renal disease; Z99.2 - Dependence on renal dialysis Status: Acute (4) Pneumonia: Code(s): J18.9 - Pneumonia, unspecified organism Status: Acute Plan 1) acute encephalopathy - no evidence of acute CVA on CT head - likely 2/2 to pneumonia - slow improvement - pt is on iv vanc and cef will transition to iv zosyn - consult neurology for ongoing confusion 2) HCAP - cefepime vancomycin started 09/08. transition to iv zosyn - f/u blood cultures 3) weakness - improved. PT/OT and plan for SNF placement for rehab. 4) HTN - resume home meds 5) ESRD MWF - resume dialysis, received on 09/09 and 09/12 - nephrology on consult 6) seizure disorder - no seizure activity 7) a fib on eliquis - cont tele monitor. cont eliquis - 09/12 developed a fib rvr 2/2 hypovolemia. responded to fluids. 9) NIDDM - accuchecks and sliding scale. 10) Severe hypokalemia add potassium supplements rpt BMP in 4 hours pt has ESRD 11) H/o Of left lower extremity wounds old and drying up Subjective Date/time seen: 09/14/23 14:26 Interval history: 73-year-old male with past medical history significant for coronary artery disease status post coronary artery bypass grafting, end-stage renal disease on hemodialysis, atrial fibrillation, type 2 diabetes mellitus, obstructive sleep apnea, seizure disorder.? Patient was brought for evaluation to the emergency room due to altered mental status, generalized weakness, states that has becoming increasingly taxing and cumbersome to care for him at home.? Admitted on 09/08 for weakness and HCAP Pt still appears confused today neurology consulted to see patient Pt seen in dialysis pt still appears confused tried contacting her voice mail is full Review of Systems Review of Systems: Ongoing confusion Exam Const: General: comfortable, no acute distress, well developed, ill appearing, average body habitus, underweight and other (Stuporous) Nutritional Appearance: average body habitus and underweight Orientation/consciousness: patient oriented x3 Other: A&Ox4 today Resp: Effort & Inspection: normal respiratory effort and able to speak in complete sentences Auscultation: clear to auscultation bilaterally and rales (scant, diffuse) Other: poor respiratory effort Cardio: Jugular venous distension: no JVD Rate: regular rate and tachycardic Rhythm: regular rhythm Heart sounds: S1 normal heart sound present and S2 normal heart sound present GI: Inspection: scaphoid Auscultation: normal bowel sounds Skin: General skin exam: wounds noted (Left lower extremity distal necrotic ulcers to the toes) Rashes: no rashes Wounds: wounds noted (Left lower extremity distal necrotic ulcers to the toes) Neuro: General: patient oriented x3, no focal motor deficits, Unable to assess gait and other (Stuporous) Cranial nerves: Yes Equal, round and reactive pupils present, Yes Bilaterally intact EOM present, Yes facial symmetry and Yes Midline tongue present Cognition (Neuro): abnormal cognition (Stuporous) Gait exam (Neuro): Unable to assess gait Motor exam (neuro): abnormal movements noted Extrem: General: normal to inspection, full ROM, no joint enlargement, no pedal edema and no edema Other: Right AKA Left lower extremity distal necrotic wounds to the toes Objective Data Vital Signs Vital Signs: Vital Signs - 24 hr 09/13/23 21:03 09/13/23 22:00 09/14/23 06:00 Temperature 36.8 C 36.2 C L Pulse Rate 64 67 63 Respiratory Rate 18 16 Blood Pressure 126/91 H 125/71 Pulse Oximetry 97 99 O
--- NOTE | 2023-09-14 14:32 | PM.IMPN ---
Progress Note: A&P Assessment and Plan (1) Altered mental status: Code(s): R41.82 - Altered mental status, unspecified Status: Acute Assessment and Plan: SEE BELOW (2) Anemia: Code(s): D64.9 - Anemia, unspecified Status: Chronic (3) ESRD (end stage renal disease) on dialysis: Code(s): N18.6 - End stage renal disease; Z99.2 - Dependence on renal dialysis Status: Acute (4) Pneumonia: Code(s): J18.9 - Pneumonia, unspecified organism Status: Acute Plan 1) acute encephalopathy - no evidence of acute CVA on CT head - likely 2/2 to pneumonia - slow improvement - pt was on iv vanc and cef now on iv zosyn - consult neurology for ongoing confusion 2) HCAP - cefepime vancomycin started 09/08. transition to iv zosyn - f/u blood cultures, cultures rpted on 09/15 3) weakness - improved. PT/OT and plan for SNF placement for rehab once medically better 4) HTN - resume home meds 5) ESRD MWF - resume dialysis, received on 09/09 and 09/12 - nephrology on consult 6) seizure disorder - no seizure activity 7) a fib on eliquis - cont tele monitor. cont eliquis 9) NIDDM - accuchecks and sliding scale. 10) Severe hypokalemia add potassium supplements pt has ESRD 11) H/o Of left lower extremity wounds old and drying up 12) ileus NG tube inserted to wall suction NPO IV fluids at a slow rate pt had ct abdomen and pelvis Surgery consulted 13) Likely OM in spine MRI spine when more stable BCx2 Echo ordered Cardiology consult for possible CHERYL Subjective Date/time seen: 09/14/23 14:32 Interval history: 73-year-old male with past medical history significant for coronary artery disease status post coronary artery bypass grafting, end-stage renal disease on hemodialysis, atrial fibrillation, type 2 diabetes mellitus, obstructive sleep apnea, seizure disorder.? Patient was brought for evaluation to the emergency room due to altered mental status, generalized weakness, states that has becoming increasingly taxing and cumbersome to care for him at home.? Admitted on 09/08 for weakness and HCAP Pt still appears confused today Pt has been vomiting all night Abdomen is distended Pt had urgent CT abdomen Surgery also seen patient ct abdomen shows New erosions at L2-L3, consistent with discitis/osteomyelitis. Pt will need work up for OM Review of Systems Review of Systems: Confused poor historian Exam Const: General: comfortable, no acute distress, well developed, ill appearing, average body habitus, underweight and other (Stuporous) Nutritional Appearance: average body habitus and underweight Orientation/consciousness: patient oriented x3 Other: A&Ox4 today Eyes: General: appearance normal, both eyes and all related structures Pupils: Equal, round and reactive pupils present EOM: EOMs intact bilaterally Resp: Effort & Inspection: normal respiratory effort and able to speak in complete sentences Auscultation: clear to auscultation bilaterally and rales (scant, diffuse) Other: poor respiratory effort Cardio: Jugular venous distension: no JVD Rate: regular rate and tachycardic Rhythm: regular rhythm Heart sounds: S1 normal heart sound present and S2 normal heart sound present GI: Inspection: scaphoid Auscultation: normal bowel sounds Skin: General skin exam: wounds noted (Left lower extremity distal necrotic ulcers to the toes) Rashes: no rashes Wounds: wounds noted (Left lower extremity distal necrotic ulcers to the toes) Neuro: General: patient oriented x3, no focal motor deficits, Unable to assess gait and other (Stuporous) Cranial nerves: Yes Equal, round and reactive pupils present, Yes Bilaterally intact EOM present, Yes facial symmetry and Yes Midline tongue present Cognition (Neuro): abnormal cognition (Stuporous) Gait exam (Neuro): Unable to assess gait Motor exam (neuro): abnormal move
--- NOTE | 2023-09-14 14:52 | WPDNEURCNPN ---
Consult date: 09/14/23 HPI: Erma Harmon is a 73 year old male Admitted to the hospital on September 08, 2023 with information that he was discharged from rehab 2 days ago and has been experiencing significant difficulties in taking care of himself and has also become increasingly confused. He has been taking multiple medications particularly amiodarone 200 mg at night atorvastatin 40 mg at night lispro insulin finasteride 5 mg at night tamsulosin 0.4 mg at night citalopram 20 mg daily Coumadin 5 mg at night Ms. Samuels 60 microvolt amplitude 2 weeks and pregabalin 50 mg capsules daily. He is reportedly allergic to morphine has ongoing history of atrial fibrillation, type 2 diabetes mellitus, anxiety with depression, hypertension, obstructive sleep apnea, and seizure disorder, his never a smoker, former alcohol intake her, and initial exam in the emergency room documented him to be with anxious affect and being uncomfortable, his vital signs were normal particularly he was afebrile, CBC revealed WBC 9.5 and hemoglobin 11.1, basic metabolic panel was with BUN of 75 creatinine of 7.90 and glucose 162, his radiological investigations included CT scan of the head on 09/09 with nonspecific white matter disease but no bleed no hydrocephalus no space-occupying lesion and Doppler study of the lower extremities were limited and cardiac arrhythmia was noted during the study. He has had MRI of the brain in May of this year which was negative. At present he is being continued on apixaban 5 mg q.12 hours with aspirin 81 mg daily, atorvastatin 40 mg daily ,in addition to Mirapex 0.5 mg q.12 hours ,midodrine 20 mg 3 times a day metoprolol 12.5 mg q.12 hours citalopram 20 mg daily and insulin accordingly. since admission he has had nephrology consultation for ongoing end-stage renal disease with change in the mental status is attributed to infection recently had been advised to continue the dialysis which will be done tomorrow but he has been noted Henny confused raising the possibility of secondary intracranial bleed or metabolic encephalopathy or infection infection. His most recent blood culture has been negative. Neuro consult has been obtained for the altered mental status in addition to all other underlying medical problems as outlined. He is already on Zosyn 2.25 g q.8 hours and has been taken of cefepime, vancomycin, Hilda drain, Review of Systems Review of Systems: All systems reviewed & are unremarkable except as noted in HPI and below PMFSH Past Medical History Medical History Atrial fibrillation AV fistula 3 attempts BPH (benign prostatic hyperplasia) Depression with anxiety DM2 (diabetes mellitus, type 2) ESRD (end stage renal disease) on dialysis HLD (hyperlipidemia) HTN (hypertension) Obstructive sleep apnea Seizure disorder Surgical History Surgical History H/O carpal tunnel repair H/O cataract extraction H/O cystoscopy H/O eye surgery H/O four vessel coronary artery bypass graft H/O heart artery stent X3 H/O shoulder surgery Left shoulder History of back surgery X3 History of bladder surgery History of parathyroid surgery Hx of nephrostomy Many years ago S/P cubital tunnel release Family History Family History Father No problems noted. Sibling Hypertension Cancer Grandparent Hypertension Diabetes mellitus Mother Ovarian cancer Sibling Cancer Social History Social History Social History: The patient has 5 children in the last child has Down syndrome. That child lives with him and his . 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 Code status full code Smoking status: Luis A
--- NOTE | 2023-09-14 15:24 | WPDNEURCNPN ---
Assessment and Plan Assessment and plan (1) Altered mental status: Code(s): R41.82 - Altered mental status, unspecified Status: Acute Plan Considering that he is receiving multiple medications including baclofen, citalopram, pramipexole, I would be reluctant to add any medication as his family already think that is improving followup mental status examination if any worsening as documented we can try different medication but for the time being I did not make any changes Consult date: 09/14/23 HPI: Erma Harmon is a 73 year old male [facility] Past Medical History Medical History Atrial fibrillation AV fistula 3 attempts BPH (benign prostatic hyperplasia) Depression with anxiety DM2 (diabetes mellitus, type 2) ESRD (end stage renal disease) on dialysis HLD (hyperlipidemia) HTN (hypertension) Obstructive sleep apnea Seizure disorder Surgical History Surgical History H/O carpal tunnel repair H/O cataract extraction H/O cystoscopy H/O eye surgery H/O four vessel coronary artery bypass graft H/O heart artery stent X3 H/O shoulder surgery Left shoulder History of back surgery X3 History of bladder surgery History of parathyroid surgery Hx of nephrostomy Many years ago S/P cubital tunnel release Family History Family History Father No problems noted. Sibling Hypertension Cancer Grandparent Hypertension Diabetes mellitus Mother Ovarian cancer Sibling Cancer Social History Social History Social History: The patient has 5 children in the last child has Down syndrome. That child lives with him and his . 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 Code status full code Smoking status: Never smoker Alcohol intake: never Substance use: never Lack of Transportation: No Lack of Food: Sometimes True Current Housing: I Have Housing Concerned About Future Housing: No Difficulty Paying Gas/Electric Bills: YES Difficulty Paying for Meds: YES Currently Unemployed: No Education: High School Diploma/GED Difficulty w/ Childcare or Family Care: YES Spiritual care concerns: No Meds Home Medications and Allergies Home Medications Medication Instructions Recorded Confirmed Type atorvastatin 40 mg tablet 40 mg PO HS 12/11/19 09/08/23 History finasteride 5 mg tablet 5 mg PO HS 10/02/20 09/08/23 History citalopram 20 mg tablet 20 mg PO DAILY 03/03/23 09/08/23 History sevelamer carbonate 800 mg tablet 800 mg PO TID 03/03/23 09/08/23 History acetaminophen 500 mg tablet 500 mg PO Q6H PRN Pain 1-6 09/08/23 09/08/23 History apixaban 5 mg tablet (Eliquis) 5 mg PO BID 09/08/23 09/08/23 History aspirin 81 mg tablet 81 mg PO DAILY 09/08/23 09/08/23 History baclofen 5 mg tablet 5 mg PO BID 09/08/23 09/08/23 History epoetin albert-epbx 3,000 unit/mL 3,000 unit subcut 3XW anemia 09/08/23 09/08/23 History injection solution (Retacrit) miconazole nitrate 2 % topical 1 applic topical BID 09/08/23 09/08/23 History cream potassium chloride 20 mEq 20 meq PO BID 09/08/23 09/08/23 History tablet,extended release pramipexole 0.5 mg tablet (Mirapex) 0.5 mg PO BID 09/08/23 09/08/23 History sennosides 8.6 mg-docusate sodium 1 tab-cap PO BID 09/08/23 09/08/23 History 50 mg tablet tramadol 50 mg tablet 50 mg PO Q8H PRN Pain 4-10 09/08/23 09/08/23 History midodrine 10 mg tablet 20 mg PO TID 09/09/23 09/09/23 History Allergies Allergy/AdvReac Type Severity Reaction Status Date / Time morphine Allergy Mild TREMORS Verified 05/27/23 08:54 Vital Signs Vital Signs - 24 hr 09/13/23 21:03 09/13/23 22:00 09/14/23 06:00 Temperature
[2023-09-14 16:49] LABS: Glucose Point of Care 164 mg/dl (65-105)
[2023-09-14] MEDS: ONDANSETRON INJ 4 MG/2 ML VIAL IV PUSH ×2 (18:42→23:27)
--- NOTE | 2023-09-14 19:17 | PC.NURSE ---
On 09/14/23, the GREASER OPERATOR, Amanda Mar, provided care and completed [employer] documentation on this patient. I have reviewed the GREASER OPERATOR's documentation and agree with the findings.
[2023-09-14] MEDS: ATORVASTATIN 40 MG TABLET PO (20:14)
[2023-09-14] MEDS: FINASTERIDE 5 MG TABLET PO (20:14)
[2023-09-14 21:12] LABS: Glucose Point of Care 166 mg/dl (65-105)
[2023-09-14] MEDS: PIPERACILLIN/TAZ 2.25G/NS 50ML 2.25 GM/50 ML BAG IVPB (21:34)
--- NOTE | 2023-09-14 23:49 | PC.NURSE ---
pt continues to forcefully vomit, zofran given with no relieve, call MD Canas inquired about promethazine 25 mg IM once for vomiting.
[2023-09-15] VITALS (11 sets, daily range): BP systolic 102–121; BP diastolic 69–93; PULSE 86–130; RESP 18–24; TEMP 35.9–36.5; O2SAT 97–100
--- NOTE | 2023-09-15 | ECHO_ITS ---
Patient Info Name: Erma Harmon Age: 73 years : 1950 Gender: Male Ht: 72 in Wt: 166 lbs BSA: 1.95 m2 HR: 133 bpm BP: 162 / 86 mmHg Heart Rhythm: Sinus Rhythm Technical Quality: Poor Exam Date: 09/15/2023 4:19 PM Exam Location: Echo Lab Exam Room: 324 Patient Status: Inpatient Admit Date: 09/08/2023 Staff Ordering Physician: Shabnam Foss MD Field Contact Technician: Tessa Bradley RDCS Attending Provider: Calin Peoples MD Referring Physician: Prudence PABON; Exam Type: CA echo limited w contrast Study Info Indications - eval for possible leonid OM IN BACK CAD CABG AMS Limited two-dimensional transthoracic echocardiogram is performed with contrast. Contrast/Agitated Saline Contrast/Ag. Saline: Definity Amount: 2.00 ml Administered By: Tessa Bradley [facility] Existing IV Access: Yes IV Access Condition: patent with no signs of infiltration Reason for Poor Study: patient body habitus Summary 1. Left ventricular systolic function is low normal, estimated at 50-55%. 2. Left ventricular chamber dimension is normal. 3. There is mildly increased left ventricular wall thickness. 4. There is moderate aortic valve stenosis with a peak velocity of 204 cm/s, mean gradient of 10 mmHg, and aortic valve area of 1.4 cm2. 5. There is severe aortic valve calcification. 6. The mitral valve has thickened leaflets. 7. There is mild mitral valve regurgitation. 8. There is mild tricuspid valve regurgitation. Left Ventricle Left ventricular systolic function is low normal, estimated at 50-55%. Left ventricular chamber dimension is normal. There is mildly increased left ventricular wall thickness. Right Ventricle Right ventricular chamber dimension is normal. Right ventricular systolic function is normal. Left Atria Left atrial chamber dimension is normal. Right Atria Right atrial chamber dimension is normal. Atrial Septum Intact interatrial septum visualized by color flow imaging. Aortic Valve The aortic valve is trileaflet. There is moderate aortic valve stenosis with a peak velocity of 204 cm/s, mean gradient of 10 mmHg, and aortic valve area of 1.4 cm2. There is trace aortic valve regurgitation. There is severe aortic valve calcification. Pulmonic Valve The pulmonic valve is normal. Mitral Valve The mitral valve has thickened leaflets. There is mild mitral valve regurgitation. Tricuspid Valve The tricuspid valve leaflets are normal. There is mild tricuspid valve regurgitation. Pericardium/Pleural The pericardium appears normal. There is no pericardial effusion. Aorta The aortic root size at the sinus of Valsalva is normal. Left Ventricular Outflow Tract Name Value Normal LVOT 2D LVOT Diameter 2.1 cm LVOT Doppler LVOT Peak Gradient 3 mmHg LVOT Mean Gradient 2 mmHg LVOT VTI 10 cm LVOT VTI/AV VTI Ratio 0.4 LVOT Stroke Volume 37 ml LVOT CO 12.5 l/min LVOT CI 6.4 l/min/m2 Aortic Valve
[2023-09-15] MEDS: PROMETHAZINE HCL 25 MG/ML AMPUL IM (00:03)
[2023-09-15] MEDS: ONDANSETRON INJ 4 MG/2 ML VIAL IV PUSH (04:26)
--- NOTE | 2023-09-15 04:55 | PC.NURSE ---
increase HR 122 reported to Md Canas pt continues to have n&v, Iv metoprolol 5mg IV once ordered, Iv benadryl 12.5 mg once, and reglan 10 mg once IV ordered for patient.
[2023-09-15] MEDS: METOCLOPRAMIDE HCL INJ 10 MG/2 ML VIAL IV PUSH (05:04)
[2023-09-15] MEDS: PIPERACILLIN/TAZ 2.25G/NS 50ML 2.25 GM/50 ML BAG IVPB ×3 (05:04→22:03)
[2023-09-15] MEDS: diphenhydrAMINE HCl INJ 50 MG/ML VIAL 12.5 MG IV PUSH (05:04)
[2023-09-15] MEDS: METOPROLOL TARTRATE INJ 5 MG/5 ML VIAL IV PUSH (05:04)
--- NOTE | 2023-09-15 05:31 | PC.NURSE ---
ct scan completed for persistent vomiting this shift.
--- NOTE | 2023-09-15 06:06 | PC.NURSE ---
informed MD Canas about CT abdomen results
[2023-09-15 06:17] LABS: Basophils Percent Auto 0.3 % (0.2-1.2); Eosinophils Percent Auto 0.3 % (0-4.4); Hematocrit 40.2 % (42.0-52.0); Hemoglobin 12.1 g/dL (14.0-18.0); Immature Granulocyte Absolute 0.05 K/mm3 (0.00-0.031); Immature Granulocyte Percent A 0.3 % (0-0.5); Lymphocytes Absolute Auto 1.71 K/mm3 (0.9-3.2); Lymphocytes Percent Auto 11.7 % (18.3-44.2); Mean Corpuscular HGB Conc 30.1 g/dl (32-36); Mean Corpuscular Hemoglobin 32.4 pg (26-34); Mean Corpuscular Volume 107.5 fl (80-100); Mean Platelet Volume 8.7 fl (7.4-10.4); Monocytes Absolute Auto 0.7 K/mm3 (0.1-0.6); Monocytes Percent Auto 4.7 % (2.6-8.5); Neutrophils Percent Auto 82.7 % (45.5-73.1); Platelet Count Result 382 k/mm3 (150-375); Red Blood Count 3.74 M/mm3 (4.6-6.20); Red Cell Distribution Width 18.5 % (11.5-14.5); White Blood Count 14.6 K/mm3 (4.5-10.0)
--- NOTE | 2023-09-15 06:23 | PC.NURSE ---
pt seen at bedside by Md Canas
[2023-09-15 06:33] LABS: Anion Gap 13 mmol/L (8-16); Blood Urea Nitrogen 25 mg/dL (9-20); Calcium 9.6 mg/dL (8.4-10.2); Carbon Dioxide 31 mmol/L (22-30); Chloride 96 mmol/L (98-107); Estimated CRCL calculation 19 ml/min; Estimated Glomerular Filt Rate 17; Glucose 223 mg/dL (65-110); Magnesium 2.1 mg/dL (1.6-2.3); Phosphorus 4.1 mg/dL (2.5-4.5); Potassium 3.9 mmol/L (3.4-5.0); Sodium 140 mmol/L (137-145)
[2023-09-15 06:42] LABS: Anisocytosis 2+ (NORMAL); Macrocytosis 1+ (NORMAL); Platelet Estimate Adequate (Adequate); Schistocytes None Seen (NORMAL)
--- NOTE | 2023-09-15 07:10 | P.PNCROSS_ITS ---
Event Note Event Note Event Note: patient had about 2-3 episodes of vomiting at night and he was given Zofran, Ph energan and Reglan. After the last episode, CT scan fo the abdomen was done raz to abdominal distension which i'm sure if this is worsening, and results showed dilated loops of small bowl with stomach with no obvious obstruction suspicious of adynamic ileus, also showed discitis of the L2/L3 that is new. patient has been stable since he received Reglan, Abdomen is not tender, i recommended General surgery consult and also to pass NG tube if patient vomits again. Considering Discitis, patient is already on broad spectrum antibiotics. Consider bone biopsy if this is in keeping with patient's goal of care.
[2023-09-15 07:28] LABS: Glucose Point of Care 205 mg/dl (65-105)
[2023-09-15 11:37] LABS: Glucose Point of Care 235 mg/dl (65-105)
--- NOTE | 2023-09-15 12:51 | PM.CNGS ---
Assessment and Plan Assessment and plan (1) Ileus: Code(s): K56.7 - Ileus, unspecified Status: Acute Assessment and Plan: Patient developed vomiting overnight and had a CT scan of the abdomen and pelvis that showed dilated stomach, small bowel, and large bowel consistent with an ileus, but cannot rule out anal obstruction. No significant findings on rectal exam. I was unable to reach any firm stool to disimpact and no palpable mass. I discussed the case with Dr. Jara. We will continue NG tube decompression and bowel rest for now. Could consider bowel stimulation versus proceeding with a Hypaque enema. Dr. Jara will be evaluating the patient as well. Will continue to follow along. (2) Ulcer of left foot: Code(s): L97.529 - Non-pressure chronic ulcer of other part of left foot with unspecified severity Status: Acute Assessment and Plan: Patient has a right AKA and he has multiple small ulcers on the 1st through 4th toe and foot that have a firm, dry black eschar. There are no signs of infection and they appear to be stable. Continue local wound care for now. Continue waffle boot. (3) Pneumonia: Code(s): J18.9 - Pneumonia, unspecified organism Status: Acute Assessment and Plan: Continue antibiotics per primary service. (4) ESRD (end stage renal disease) on dialysis: Code(s): N18.6 - End stage renal disease; Z99.2 - Dependence on renal dialysis Status: Acute Assessment and Plan: Nephrology following. (5) Discitis of lumbar region: Code(s): M46.46 - Discitis, unspecified, lumbar region Status: Acute Assessment and Plan: Noted on CT abdomen and pelvis as a new finding since February, management per primary service. (6) Anemia: Code(s): D64.9 - Anemia, unspecified Status: Chronic (7) DM2 (diabetes mellitus, type 2): Code(s): E11.9 - Type 2 diabetes mellitus without complications Status: Chronic (8) Atrial fibrillation: Code(s): I48.91 - Unspecified atrial fibrillation Status: Chronic (9) Anticoagulant long-term use: Code(s): Z79.01 - half-way (current) use of anticoagulants Status: Acute Plan I have discussed the patient's case and plan of care with Dr. Jara. History of Present Illness Consult details Consult date: 09/15/23 Reason for consult: other (Ileus) Requesting physician: Latisha Canas MD Narrative: This is a 73-year-old man with a history of atrial fibrillation on Eliquis, CAD s/p CABG, type 2 diabetes mellitus, ESRD on hemodialysis, and multiple other medical problems, who we have been asked to see in surgical consultation for an ileus. The patient was brought to the ER for altered mental status from home and admitted on 09/08/23 for community-acquired pneumonia. He also has a history of a right above knee amputation and was found to have multiple ulcers on his left foot. He apparently was recently discharged from rehab to home with his and she was having issues taking care of him on her own. He has been receiving dialysis for his ESRD and being treated for the pneumonia with IV antibiotics. Wound care was consulted for his left foot ulcers and they are doing dressing changes with Vaseline gauze and covered with dry kerlex gauze. Last night, the patient began vomiting and subsequently a CT scan of the abdomen and pelvis was ordered. This showed stomach, small bowel, and large bowel dilation consistent with an ileus, but cannot exclude anal obstruction, and new erosions at L2-L3 consistent with discitis/osteomyelitis. Recommended digital rectal exam. Our service has been consulted. NG tube ordered and has been placed. He has had over 1 liter out of his NG tube already this morning. He denies flatus, but he is also confused and history is limited. Per nursing, he did have a bowel movement 2 days ago. He is not currently receiving any narcotics. He is basically bedridden with his amputat
--- NOTE | 2023-09-15 13:50 | PM.PNNEP ---
Progress Note: A&P Assessment and Plan (1) End stage renal disease: Code(s): N18.6 - End stage renal disease Status: Chronic Assessment and Plan: HD tomorrow continue outpatient schedule of M// outpatient dialysis done at [facility] under the care of Dr. Wesley Santiago follow electrolytes, volume status, and clearance (2) Altered mental status: Code(s): R41.82 - Altered mental status, unspecified Status: Acute Assessment and Plan: still confused (and continues to fluctuate) thought to be secondary to infection (pneumonia +/- left foot wounds +/- decubitus ulcer) follow culture data on antibiotics CT of head noted follow mentation (3) Hypokalemia: Code(s): E87.6 - Hypokalemia Status: Acute Assessment and Plan: suspect due to poor oral intake liberalize diet replete PRN and adjust dialysis to compensate follow repeat K+ levels (4) Ileus: Code(s): K56.7 - Ileus, unspecified Status: Acute Assessment and Plan: as noted by recent imaging NGT in place Surgery following (5) Discitis of lumbar region: Code(s): M46.46 - Discitis, unspecified, lumbar region Status: Acute Assessment and Plan: incidental finding of CT imaging already on antibiotic therapy culture data noted further testing needed -- bone biopsy? (6) Pneumonia: Code(s): J18.9 - Pneumonia, unspecified organism Status: Acute Assessment and Plan: suspect based on imaging to date on antibiotics follow cultures monitor respiratory status (7) Atrial fibrillation: Code(s): I48.91 - Unspecified atrial fibrillation Status: Chronic Assessment and Plan: rate control strategy already on anticoagulation (8) Anemia: Code(s): D64.9 - Anemia, unspecified Status: Chronic Assessment and Plan: due to ESRD and acute illness Epogen with HD follow trend of H/H (9) HTN (hypertension): Code(s): I10 - Essential (primary) hypertension Status: Chronic Assessment and Plan: reasonable control follow trend of hemodynaics (10) DM2 (diabetes mellitus, type 2): Code(s): E11.9 - Type 2 diabetes mellitus without complications Status: Chronic Assessment and Plan: follow accu-cheks glycemic control per hospitalists Will continue to follow. Subjective Date/time seen: 09/15/23 13:50 Interval history: Follow-up for end stage renal disease on hemodialysis. Tolerated dialysis treatment yesterday without any issues or problems; overnight, persistent nausea and vomiting despite IV antiemetics; subsequet CT scan of abd/pelvis suggestive of ileus along with incidental finding of discitis; NG tube placed with ~ 1L output; Surgery consulted with recommendations noted. Exam Narrative: General: chronically ill appearing male in NAD Heart: normal S1 and S2; no rub Lungs: clear anteriorly Abdomen: soft, nontender, distended, hypoactive bowel sounds Extremities: no cyanosis or clubbing; right AKA Skin: left foot - dark with necrotic toe wounds apparent Objective Data Vital Signs Vital Signs: Vital Signs Temp Pulse Resp BP Pulse Ox O2 Del Method FiO2 09/15/23 13:50 97.7 F 130 H 20 102/86 100 09/15/23 12:14 110/70 09/15/23 11:28 110/70 09/15/23 08:00 100 Room Air 09/15/23 06:06 96.7 F L 86 24 H 121/93 H 100 Room Air 09/15/23 05:04 122 H 09/15/23 04:56 96.7 F L 122 H 24 H 121/93 H 100 Room Air 09/15/23 04:48 122 H 09/15/23 04:45 96.7 F L 24 H 121/93 H 100 09/14/23 19:46 54 L 18 96 Room Air 21 09/14/23 19:36 54 L 09/14/23 19:35 97.7 F 54 L 18 111/56 L 96 Intake/Output Intake/Output: Intake & Output 09/12/23 09/13/23 09/14/23 09/15/23 23:59 23:59 23:59 23:59 Intake Total 980 810 436 972 Output Total 390
--- NOTE | 2023-09-15 13:50 | P.PNNP_ITS ---
Progress Note: A&P Assessment and Plan (1) End stage renal disease: Code(s): N18.6 - End stage renal disease Status: Chronic Assessment and Plan: * HD tomorrow * continue outpatient schedule of // * outpatient dialysis done at [facility] under the care of Dr. Wesley Santiago * follow electrolytes, volume status, and clearance (2) Altered mental status: Code(s): R41.82 - Altered mental status, unspecified Status: Acute Assessment and Plan: * still confused (and continues to fluctuate) * thought to be secondary to infection (pneumonia +/- left foot wounds +/- decubitus ulcer) * follow culture data * on antibiotics * CT of head noted * follow mentation (3) Hypokalemia: Code(s): E87.6 - Hypokalemia Status: Acute Assessment and Plan: * suspect due to poor oral intake * liberalize diet * replete PRN and adjust dialysis to compensate * follow repeat K+ levels (4) Ileus: Code(s): K56.7 - Ileus, unspecified Status: Acute Assessment and Plan: * as noted by recent imaging * NGT in place * Surgery following (5) Discitis of lumbar region: Code(s): M46.46 - Discitis, unspecified, lumbar region Status: Acute Assessment and Plan: * incidental finding of CT imaging * already on antibiotic therapy * culture data noted * further testing needed -- bone biopsy? (6) Pneumonia: Code(s): J18.9 - Pneumonia, unspecified organism Status: Acute Assessment and Plan: * suspect based on imaging to date * on antibiotics * follow cultures * monitor respiratory status (7) Atrial fibrillation: Code(s): I48.91 - Unspecified atrial fibrillation Status: Chronic Assessment and Plan: * rate control strategy * already on anticoagulation (8) Anemia: Code(s): D64.9 - Anemia, unspecified Status: Chronic Assessment and Plan: * due to ESRD and acute illness * Epogen with HD * follow trend of H/H (9) HTN (hypertension): Code(s): I10 - Essential (primary) hypertension Status: Chronic Assessment and Plan: * reasonable control * follow trend of hemodynaics (10) DM2 (diabetes mellitus, type 2): Code(s): E11.9 - Type 2 diabetes mellitus without complications Status: Chronic Assessment and Plan: * follow accu-cheks * glycemic control per hospitalists Will continue to follow. Subjective Date/time seen: 09/15/23 13:50 Interval history: Follow-up for end stage renal disease on hemodialysis. Tolerated dialysis treatment yesterday without any issues or problems; overnight, persistent nausea and vomiting despite IV antiemetics; subsequet CT s can of abd/pelvis suggestive of ileus along with incidental finding of discitis; NG tube placed with ~ 1L output; Surgery consulted with recommendations noted. Exam Narrative: General: chronically ill appearing male in NAD Heart: normal S1 and S2; no rub Lungs: clear anteriorly Abdomen: soft, nontender, distended, hypoactive bowel sounds Extremities: no cyanosis or clubbing; right AKA Skin: left foot - dark with necrotic toe wounds apparent Objective Data Vital Signs Vital Signs: Vital Signs Temp Pulse Resp BP Pulse Ox O2 Del Method FiO2 09/15/23
--- NOTE | 2023-09-15 15:01 | PC.NURSE ---
Dr Jara on floor and notified of ng tube slightly dark blood tinged in line.
[2023-09-15] MEDS: SODIUM CHLORIDE 0.9% IV 1,000 ML 50 ML IV CONT (15:09)
--- NOTE | 2023-09-15 16:03 | PC.NURSE ---
Dr Foss notified of heart rate 120-130 and unable to do mri screening patient is confused and is unsue of what surgeries patient has had and if he has any metal in his body.
[2023-09-15] MEDS: METOPROLOL TARTRATE INJ 5 MG/5 ML VIAL 2.5 MG IV PUSH (16:30)
[2023-09-15] MEDS: PERFLUTREN LIPID MICROSPHERES 1.5 ML VIAL DILUTED TO 10 ML TOTAL VOLUME IV PUSH (16:40)
[2023-09-15 16:42] LABS: Glucose Point of Care 205 mg/dl (65-105)
--- NOTE | 2023-09-15 16:49 | IVDEFINITY ---
Prior to administration of IV Definity the patient was educated on the risks and benefits of the imaging enhancing agent including potential adverse side effects. The patient verbalized understanding. Allergies were verified. No exclusion criteria were identified and at least one of the following inclusion criteria were met: 1) physician request, 2) patient technically difficult to image (per the [place] [employer] guidelines of two or more segments not discernable within the apical view), or 3) questionable left ventricular function. ?
[2023-09-15 20:13] LABS: Glucose Point of Care 180 mg/dl (65-105)
[2023-09-15] MEDS: APIXABAN 5 MG TABLET PO (22:04)
[2023-09-15] MEDS: PANTOPRAZOLE SODIUM IV 40 MG VIAL IV PUSH (22:04)
[2023-09-15] MEDS: SENNA/DOCUSATE SODIUM TABLET 1 TAB PO (22:05)
[2023-09-15] MEDS: ATORVASTATIN 40 MG TABLET PO (22:05)
[2023-09-15] MEDS: PRAMIPEXOLE 0.5 MG TABLET PO (22:05)
[2023-09-15] MEDS: METOPROLOL TARTRATE 12.5 MG TABLET PO (22:05)
[2023-09-15] MEDS: FINASTERIDE 5 MG TABLET PO (22:06)
[2023-09-16] VITALS (22 sets, daily range): BP systolic 88–145; BP diastolic 22–77; PULSE 115–136; RESP 17–20; TEMP 7.4–37.2; O2SAT 95–100
[2023-09-16] MEDS: PIPERACILLIN/TAZ 2.25G/NS 50ML 2.25 GM/50 ML BAG IVPB ×3 (06:02→22:24)
[2023-09-16 06:59] LABS: Hematocrit 33.5 % (42.0-52.0); Hemoglobin 10.7 g/dL (14.0-18.0); Mean Corpuscular HGB Conc 31.9 g/dl (32-36); Mean Corpuscular Hemoglobin 33.9 pg (26-34); Mean Platelet Volume 9.2 fl (7.4-10.4); Platelet Count Result 321 k/mm3 (150-375); Red Blood Count 3.16 M/mm3 (4.6-6.20); Red Cell Distribution Width 18.6 % (11.5-14.5); White Blood Count 10.9 K/mm3 (4.5-10.0)
[2023-09-16 07:13] LABS: Alanine Aminotransferase 14 U/L (6-50); Albumin Level 3.4 g/dL (3.5-5.1); Alkaline Phosphatase 85 U/L (38-126); Anion Gap 14 mmol/L (8-16); Aspartate Amino Transferase 23 U/L (17-59); Bilirubin,Total 0.8 mg/dL (0.2-1.3); Blood Urea Nitrogen 43 mg/dL (9-20); Calcium 9.1 mg/dL (8.4-10.2); Carbon Dioxide 26 mmol/L (22-30); Chloride 102 mmol/L (98-107); Estimated CRCL calculation 13 ml/min; Estimated Glomerular Filt Rate 11; Glucose 182 mg/dL (65-110); Potassium 3.6 mmol/L (3.4-5.0); Sodium 142 mmol/L (137-145)
--- NOTE | 2023-09-16 07:23 | PC.NURSE ---
PT. pulled out NG tube about 0400 this morning called GI exchange and was told to leave NG out for now. PT. now has a sitter in room.
[2023-09-16 07:46] LABS: CRP 16.6 mg/dL (<1.0)
[2023-09-16 07:51] LABS: Procalcitonin 1.9 ng/mL
[2023-09-16 08:12] LABS: Glucose Point of Care 160 mg/dl (65-105)
[2023-09-16] MEDS: PANTOPRAZOLE SODIUM IV 40 MG VIAL IV PUSH ×2 (10:53→20:36)
--- NOTE | 2023-09-16 10:58 | PC.NURSE ---
Dr Foss on floor and notified og hr in 130's and bp 90/60. Did not give prn ib lopressor dur to low bp
--- NOTE | 2023-09-16 11:32 | PM.CNCAR ---
Assessment and Plan Assessment and plan (1) Altered mental status: Code(s): R41.82 - Altered mental status, unspecified Status: Acute Assessment and Plan: Likely related to underlying pneumonia, sacral decubitus ulcer, possible sepsis (2) Discitis of lumbar region: Code(s): M46.46 - Discitis, unspecified, lumbar region Status: Acute Assessment and Plan: He likely needs neurosurgical evaluation. Continue antibiotics. Regarding need for CHERYL, will obviously need long-term antibiotics anyway.. Await blood cultures. Echocardiogram is personally reviewed and is a Difficult quality study and there is certainly thickening of the aortic and mitral valves but no obvious vegetation. I question if a CHERYL is going to change much in his particular case but can perform when more stable. He obviously has a multitude of sources for possible bacteremia (3) Anticoagulant long-term use: Code(s): Z79.01 - long term care administrator (current) use of anticoagulants Status: Acute Assessment and Plan: On Eliquis (4) ESRD (end stage renal disease) on dialysis: Code(s): N18.6 - End stage renal disease; Z99.2 - Dependence on renal dialysis Status: Acute Assessment and Plan: On dialysis (5) Atrial fibrillation: Code(s): I48.91 - Unspecified atrial fibrillation Status: Chronic Assessment and Plan: On anticoagulation (6) CAD (coronary artery disease): Code(s): I25.10 - Atherosclerotic heart disease of [place] coronary artery without angina pectoris Status: Acute Assessment and Plan: No clear anginal symptoms at present. Resume statin when able History of Present Illness History of Present Illness Consult date/time: 09/16/23 11:32 Requesting physician: Shabnam Foss MD Consult reason: Other (Diskitis, osteomyelitis, consider CHERYL) Reason For Visit: Decub Ulcer, PNA Narrative: Reason for consultation: Osteomyelitis and diskitis, consider CHERYL Requesting provider: Dr. Foss Date of service 09/16/2023 History 73-year-old male with a multitude of health problems including coronary disease status post revascularization, PAF, end-stage renal disease, status post renal transplant, status post right AKA, chronic decubitus ulcers, of lower extremity foot wounds who presented to the hospital because of altered mental status. He also has generalized weakness. Patient's states he has been increasingly more difficult to take care of the home. Patient himself does answer questions but is confused and obviously somewhat delirious. The process of having an initial workup though was noted to be issues at L2 and L3 and concern for diskitis/osteomyelitis. Cardiology consultation is therefore requested for consideration of a CHERYL. Patient denies any chest pain, shortness of breath. No syncope or presyncope. Patient was found have an ileus had an NG in place is currently on broad-spectrum antibiotics. Review of Systems Review of Systems: All systems reviewed & are unremarkable except as noted in HPI and below Constitutional: Constitutional: Reports weakness Eyes: Eyes: Denies blurry vision ENT: Reports Normal hearing present Cardiovascular: Cardiovascular: Denies chest pain Respiratory: Respiratory: Denies hemoptysis Gastrointestinal: Gastrointestinal: Denies abdominal pain and Reports bloating Genitourinary: Genitourinary: Denies hematuria Musculoskeletal: Musculoskeletal: Denies arthralgias Integumentary/Breasts: Skin/Breast: Reports wounds Neurologic: Reports Abnormal speech present Psychiatric: Psychiatric: Reports confusion Endocrine: Endocrine: Denies excessive sweating Hematologic/Lymphatic: Hematologic/Lymphatic: Denies easy bleeding Allergic/Immunologic: Allergic/Immunologic: Denies GI upset with certain foods PMFSH Past Medical History Medical History Atrial fibrillat
--- NOTE | 2023-09-16 11:50 | PCOTNOTE ---
Per RN, Patient has a sitter, has been hallucinating and not appropriate for therapy services this date.
--- NOTE | 2023-09-16 12:06 | PM.PNGS ---
Progress Note: A&P Assessment and Plan (1) Ileus: Code(s): K56.7 - Ileus, unspecified Status: Acute Assessment and Plan: Although still a little distended, he is much improved. He has some bowel sounds and is having bowel movements. He is hungry and would like to eat. Will go ahead and try him on full liquids. Subjective Subjective Date/Time Seen: 09/16/23 12:06 Patient reports: feels better, pain is less (Denies abdominal pain), bowel movement and afebrile Interval history: Patient pulled out NG tube last night. It was not replaced per hospitalist order. Patient has had bowel movement today and does feel better. He is hungry and would like to eat. Review of Systems Review of Systems: All systems reviewed & are unremarkable except as noted in HPI and below (HPI) Exam Const: General: comfortable, no acute distress and awake GI: Inspection: distended and other (Less distended than yesterday.) GI Palp: Yes Soft to palpation, Yes Tenderness to palpation present (GI) (Mild diffuse tenderness, no guarding or rebound), No Guarding due to palpation present (GI), Yes No hepatosplenomegaly present, No Hernia present, No Palpable mass present and No Rebound tenderness present Auscultation: normal bowel sounds Objective Data Vital Signs Vital Signs: Vital Signs - 24 hr 09/15/23 12:14 09/15/23 13:58 09/15/23 16:30 Temperature 36.5 C Pulse Rate 130 H 130 H Respiratory Rate 20 Blood Pressure 110/70 102/86 Pulse Oximetry 100 Oxygen Delivery 09/15/23 21:00 09/16/23 04:51 09/16/23 08:59 Temperature 36.5 C 36.6 C Pulse Rate 130 H 131 H 131 H Respiratory Rate 18 18 Blood Pressure 107/69 111/77 90/60 L Pulse Oximetry 97 95 Oxygen Delivery 09/16/23 08:00 Temperature Pulse Rate Respiratory Rate Blood Pressure Pulse Oximetry 95 Oxygen Delivery Room Air Intake/Output Intake/Output: Intake & Output 09/13/23 09/14/23 09/15/23 09/16/23 23:59 23:59 23:59 23:59 Intake Total 640 449 9922 Output Total 0 900 Balance 810 436 122 Meds/Results Medications: Active Medications Generic Name Dose Route Start Last Admin Trade Name Beth PRN Reason Stop Dose Admin Acetaminophen 500 mg 09/09/23 01:19 09/11/23 12:56 Acetaminophen 500 Mg Tablet PO 500 mg Q6H PRN Administration Pain 1-6 Apixaban 5 mg 09/09/23 09:00 09/16/23 10:49 Apixaban 5 Mg Tablet PO Not Given Q12HR AURELIO Aspirin 81 mg 09/09/23 09:00 09/16/23 10:49 Aspirin 81 Mg Enteric Tablet PO 10/09/23 08:59 Not Given DAILY AURELIO Atorvastatin Calcium 40 mg 09/09/23 21:00 09/15/23 22:05 Atorvastatin 40 Mg Tablet PO 40 mg HS AURELIO Administration Citalopram Hydrobromide 20 mg 09/14/23 09:00 09/16/23 10:49 Citalopram Hydrobromide 20 Mg Tablet PO Not Given DAILY AURELIO Dextrose 12.5 gm 09/09/23 10:11 Dextrose 50% 25 Gm/50 Ml Syringe IV PUSH PRN PRN Hypoglycemia Protocol Finasteride 5 mg 09/09/23 21:00 09/15/23 22:06 Finasteride 5 Mg Tablet PO 5 mg HS AURELIO Administration Glucagon 1 mg 09/09/23 10:11 Glucagon For Inj 1 Mg Vial IM PRN PRN Hypoglycemia Protocol Glucose 15 gm 09/09/23 10:11 Glucose Oral Gel 15 Gm Of Glucse In 37.5 Gm Tube PO PRN PRN Hypoglycemia Protocol Albumin Human 50 mls @ 999 mls/hr 09/09/23 06:29 Albutein IVPB 10/09/23 06:28 Q10M PRN HYPOTENSION Dextrose 1,000 mls @ 100 mls/hr 09/09/23 10:11 Dextrose 5% 1,000 Ml IVPB PRN PRN Hypoglycemia Protocol Piperacillin Sod/Tazobactam Sod 2.25 gm in 50 mls @ 100 mls/hr 09/14/23 22:00 09/16/23 06:02 Zosyn 2.25 Gm/Ns 50 Ml IVPB 100 mls/hr Q8HR AURELIO Administration Sodium Chloride 1,000 mls @ 50 mls/hr 09/15/23 15:00 09/15/23 15:09 Normal Saline Iv IV CONT 50 mls/hr .Q20H AURELIO Administration Insulin Aspart 2 - 5 units 09/09/23 12:00 09/16/23 08:57 Insulin Aspart (*[facility])
[2023-09-16 12:08] LABS: Glucose Point of Care 143 mg/dl (65-105)
[2023-09-16] MEDS: SEVELAMER CARBONATE 800 MG TABLET PO ×2 (12:20→17:43)
[2023-09-16] MEDS: MIDODRINE HCL 10 MG TABLET 20 MG PO ×2 (12:20→17:43)
--- NOTE | 2023-09-16 13:31 | PM.IMPN ---
Progress Note: A&P Assessment and Plan (1) Altered mental status: Code(s): R41.82 - Altered mental status, unspecified Status: Acute Assessment and Plan: SEE BELOW (2) Anemia: Code(s): D64.9 - Anemia, unspecified Status: Chronic (3) ESRD (end stage renal disease) on dialysis: Code(s): N18.6 - End stage renal disease; Z99.2 - Dependence on renal dialysis Status: Acute (4) Pneumonia: Code(s): J18.9 - Pneumonia, unspecified organism Status: Acute Plan 1) acute encephalopathy - no evidence of acute CVA on CT head - likely 2/2 to pneumonia - and OM just found out ! - slow improvement - consult neurology for ongoing confusion - Echo completed, MRI back awaiting. - pt started on iv vancomycin and continued on iv zosyn 2) HCAP - see above - f/u blood cultures, cultures rpted on 09/15 3) weakness - improved. PT/OT and plan for SNF placement for rehab once medically better 4) HTN - resume home meds 5) ESRD MWF - resume dialysis, received on 09/09 and 09/12 - nephrology on consult 6) seizure disorder - no seizure activity 7) a fib on eliquis - cont tele monitor. cont eliquis 9) NIDDM - accuchecks and sliding scale. 10) Severe hypokalemia add potassium supplements pt has ESRD 11) H/o Of left lower extremity wounds old and drying up 12) ileus Pt pulled out his NG NPO IV fluids at a slow rate pt had ct abdomen and pelvis Surgery consulted 13) Likely OM in spine MRI spine when more stable BCx2 Echo ordered Cardiology consult for possible CHERYL started on iv vancomycin Subjective Date/time seen: 09/16/23 13:31 Interval history: 73-year-old male with past medical history significant for coronary artery disease status post coronary artery bypass grafting, end-stage renal disease on hemodialysis, atrial fibrillation, type 2 diabetes mellitus, obstructive sleep apnea, seizure disorder.? Patient was brought for evaluation to the emergency room due to altered mental status, generalized weakness. D/w son stating pt has been in hospitals for 3 months had his amputation roughly one month ago Admitted here on 09/08 for weakness and HCAP Pt still appears confused today Pt has been vomiting all night Abdomen is distended Pt had urgent CT abdomen Surgery also seen patient treated for ileus pt pulled out his NG doing ok on iv fluids still npo Ct abdomen also showed New erosions at L2-L3, consistent with discitis/osteomyelitis. Sp echocardiogram, cardiology consult for CHERYL, MRI back ordered IV vancomycin started Review of Systems Review of Systems: Confused Multiple comorbidities Exam Const: General: comfortable, no acute distress, well developed, ill appearing, average body habitus, underweight and other (Stuporous) Nutritional Appearance: average body habitus and underweight Orientation/consciousness: patient oriented x3 Other: A&Ox4 today Eyes: General: appearance normal, both eyes and all related structures Pupils: Equal, round and reactive pupils present EOM: EOMs intact bilaterally Resp: Effort & Inspection: normal respiratory effort and able to speak in complete sentences Auscultation: clear to auscultation bilaterally and rales (scant, diffuse) Other: poor respiratory effort Cardio: Jugular venous distension: no JVD Rate: regular rate and tachycardic Rhythm: regular rhythm Heart sounds: S1 normal heart sound present and S2 normal heart sound present GI: Inspection: scaphoid Auscultation: normal bowel sounds Skin: General skin exam: wounds noted (Left lower extremity distal necrotic ulcers to the toes) Rashes: no rashes Wounds: wounds noted (Left lower extremity distal necrotic ulcers to the toes) Neuro: General: patient oriented x3, no focal motor deficits, Unable to assess gait and other (Stuporous) Cranial nerves: Yes Equal, round and reactive pupils present, Yes Bilat
--- NOTE | 2023-09-16 13:35 | PCPTNOTE ---
The patient treatment was not able to be completed today. RN advised PT patient was not appropriate to be seen due to increased confusion and inability to follow directions. Will plan to continue treatment per plan of care.
[2023-09-16] MEDS: ALBUMIN HUMAN 25% 12.5 GM/50ML 50 ML IVPB (13:57)
--- NOTE | 2023-09-16 14:15 | P.PNNP_ITS ---
Progress Note: A&P Assessment and Plan (1) End stage renal disease: Code(s): N18.6 - End stage renal disease Status: Chronic Assessment and Plan: * HD today * continue outpatient schedule of // * outpatient dialysis done at [facility] under the care of Dr. Wesley Santiago * follow electrolytes, volume status, and clearance (2) Altered mental status: Code(s): R41.82 - Altered mental status, unspecified Status: Acute Assessment and Plan: * still confused (and continues to fluctuate) * thought to be secondary to infection (pneumonia +/- left foot wounds +/- decubitus ulcer) * follow culture data * on antibiotics * CT of head noted * follow mentation (3) Hypokalemia: Code(s): E87.6 - Hypokalemia Status: Acute Assessment and Plan: * suspect due to poor oral intake * liberalize diet * replete PRN and adjust dialysis to compensate * follow repeat K+ levels (4) Ileus: Code(s): K56.7 - Ileus, unspecified Status: Acute Assessment and Plan: * as noted by recent imaging * NGT was in place but patient removed it overnight * plan advancement in diet * Surgery following (5) Discitis of lumbar region: Code(s): M46.46 - Discitis, unspecified, lumbar region Status: Acute Assessment and Plan: * incidental finding of CT imaging * already on antibiotic therapy * culture data noted * further testing needed?? (6) Pneumonia: Code(s): J18.9 - Pneumonia, unspecified organism Status: Acute Assessment and Plan: * suspect based on imaging to date * on antibiotics * follow cultures * monitor respiratory status (7) Atrial fibrillation: Code(s): I48.91 - Unspecified atrial fibrillation Status: Chronic Assessment and Plan: * rate control strategy * already on anticoagulation (8) Anemia: Code(s): D64.9 - Anemia, unspecified Status: Chronic Assessment and Plan: * due to ESRD and acute illness * Epogen with HD * follow trend of H/H (9) HTN (hypertension): Code(s): I10 - Essential (primary) hypertension Status: Chronic Assessment and Plan: * reasonable control * follow trend of hemodynaics (10) DM2 (diabetes mellitus, type 2): Code(s): E11.9 - Type 2 diabetes mellitus without complications Status: Chronic Assessment and Plan: * follow accu-cheks * glycemic control per hospitalists Will continue to follow. Subjective Date/time seen: 09/16/23 14:15 Interval history: Follow-up for end stage renal disease on hemodialysis. Tolerating dialysis treatment at the time of my visit (seen on HD at 2:05PM); still remains confused currently; pulled his NG tube out overnight -- however, abdomen seems less distended so diet being slowly advanced. Exam Narrative: General: chronically ill appearing male in NAD Heart: normal S1 and S2; no rub Lungs: clear anteriorly Abdomen: soft, nontender, mildly distended, hypoactive bowel sounds Extremities: no cyanosis or clubbing; right AKA Skin: left foot - dark with necrotic toe wounds apparent Objective Data Vital Signs Vital Signs: Vital Signs Temp Pulse Resp BP Pulse Ox O2 Del Method O2 Flow Rate 09/16/23 14:15 136 H 101/47 L
--- NOTE | 2023-09-16 14:15 | PM.PNNEP ---
Progress Note: A&P Assessment and Plan (1) End stage renal disease: Code(s): N18.6 - End stage renal disease Status: Chronic Assessment and Plan: HD today continue outpatient schedule of M/W/ outpatient dialysis done at [facility] under the care of Dr. Wesley Santiago follow electrolytes, volume status, and clearance (2) Altered mental status: Code(s): R41.82 - Altered mental status, unspecified Status: Acute Assessment and Plan: still confused (and continues to fluctuate) thought to be secondary to infection (pneumonia +/- left foot wounds +/- decubitus ulcer) follow culture data on antibiotics CT of head noted follow mentation (3) Hypokalemia: Code(s): E87.6 - Hypokalemia Status: Acute Assessment and Plan: suspect due to poor oral intake liberalize diet replete PRN and adjust dialysis to compensate follow repeat K+ levels (4) Ileus: Code(s): K56.7 - Ileus, unspecified Status: Acute Assessment and Plan: as noted by recent imaging NGT was in place but patient removed it overnight plan advancement in diet Surgery following (5) Discitis of lumbar region: Code(s): M46.46 - Discitis, unspecified, lumbar region Status: Acute Assessment and Plan: incidental finding of CT imaging already on antibiotic therapy culture data noted further testing needed?? (6) Pneumonia: Code(s): J18.9 - Pneumonia, unspecified organism Status: Acute Assessment and Plan: suspect based on imaging to date on antibiotics follow cultures monitor respiratory status (7) Atrial fibrillation: Code(s): I48.91 - Unspecified atrial fibrillation Status: Chronic Assessment and Plan: rate control strategy already on anticoagulation (8) Anemia: Code(s): D64.9 - Anemia, unspecified Status: Chronic Assessment and Plan: due to ESRD and acute illness Epogen with HD follow trend of H/H (9) HTN (hypertension): Code(s): I10 - Essential (primary) hypertension Status: Chronic Assessment and Plan: reasonable control follow trend of hemodynaics (10) DM2 (diabetes mellitus, type 2): Code(s): E11.9 - Type 2 diabetes mellitus without complications Status: Chronic Assessment and Plan: follow accu-cheks glycemic control per hospitalists Will continue to follow. Subjective Date/time seen: 09/16/23 14:15 Interval history: Follow-up for end stage renal disease on hemodialysis. Tolerating dialysis treatment at the time of my visit (seen on HD at 2:05PM); still remains confused currently; pulled his NG tube out overnight -- however, abdomen seems less distended so diet being slowly advanced. Exam Narrative: General: chronically ill appearing male in NAD Heart: normal S1 and S2; no rub Lungs: clear anteriorly Abdomen: soft, nontender, mildly distended, hypoactive bowel sounds Extremities: no cyanosis or clubbing; right AKA Skin: left foot - dark with necrotic toe wounds apparent Objective Data Vital Signs Vital Signs: Vital Signs Temp Pulse Resp BP Pulse Ox O2 Del Method O2 Flow Rate 09/16/23 14:15 136 H 101/47 L 09/16/23 14:00 133 H 105/57 L 09/16/23 13:44 130 H 97/55 L 09/16/23 13:34 98.2 F 130 H 18 95/22 L 09/16/23 13:34 0 09/16/23 08:00 95 Room Air 09/16/23 08:59 131 H 90/60 L 09/16/23 04:51 97.9 F 131 H 18 111/77 95 09/15/23 21:00 97.7 F 130 H 18 107/69 97 Intake/Output Intake/Output: Intake & Output 09/13/23 09/14/23 09/15/23 09/16/23 23:59 23:59 23:59 23:59 Intake Total 021 306 8269 980 Output Total 0 900 0 Balance 810 436 122 980 Meds/Results Medications: Active Medications Generic Name Dose Route Start Last Admin Trade Name Freq PRN Reason Stop Dose Admin Acetaminophe
[2023-09-16] MEDS: ALBUMIN HUMAN 25% 12.5 GM/50ML 150 ML 50 GM (14:16)
[2023-09-16 14:51] LABS: Vancomycin Random 8.3 ug/mL (10-20)
[2023-09-16] MEDS: POTASSIUM CHLORIDE 20 MEQ PACKET (FOR LIQUID) 40 MEQ PO (17:43)
[2023-09-16 17:56] LABS: Glucose Point of Care 98 mg/dl (65-105)
[2023-09-16] MEDS: VANCOMYCIN 1,000 MG/NS 250 ML 1,000 MG/250 ML BAG 100 MG IVPB (18:10)
[2023-09-16 20:35] LABS: Glucose Point of Care 105 mg/dl (65-105)
[2023-09-16] MEDS: APIXABAN 5 MG TABLET PO (20:37)
[2023-09-16] MEDS: ATORVASTATIN 40 MG TABLET PO (20:38)
[2023-09-16] MEDS: SODIUM CHLORIDE 0.9% IV 1,000 ML 50 ML IV CONT (22:23)
[2023-09-16] MEDS: METOPROLOL TARTRATE 12.5 MG TABLET PO (22:24)
[2023-09-17] VITALS (8 sets, daily range): BP systolic 96–112; BP diastolic 61–80; PULSE 93–104; RESP 16–20; TEMP 35.6–36.8; O2SAT 96–98
[2023-09-17] MEDS: PIPERACILLIN/TAZ 2.25G/NS 50ML 2.25 GM/50 ML BAG IVPB ×3 (05:04→21:07)
[2023-09-17 08:09] LABS: Glucose Point of Care 86 mg/dl (65-105)
--- NOTE | 2023-09-17 09:35 | PM.PNGS ---
Progress Note: A&P Assessment and Plan (1) Ileus: Code(s): K56.7 - Ileus, unspecified Status: Acute Assessment and Plan: improving, exam benign, ADAT Subjective Subjective Date/Time Seen: 09/17/23 09:35 Interval history: no acute issues, a little lethargic, confused this am (?baseline), no abd pain, no N/V Review of Systems Review of Systems: All systems reviewed & are unremarkable except as noted in HPI and below Exam Const: General: cooperative, no acute distress, confusion, ill appearing, lethargic and tired appearing Resp: Auscultation: clear to auscultation bilaterally Cardio: Rate: regular rate Rhythm: regular rhythm GI: Inspection: normal to inspection and distended GI Palp: No abdominal tenderness, Yes Soft to palpation, No Tenderness to palpation present (GI), No Guarding due to palpation present (GI) and No Rigid due to palpation Objective Data Vital Signs Vital Signs: Vital Signs - 24 hr 09/16/23 13:34 09/16/23 13:34 09/16/23 13:44 Temperature 36.8 C Pulse Rate 130 H 130 H Respiratory Rate 18 Blood Pressure 95/22 L 97/55 L Pulse Oximetry Oxygen Delivery Oxygen Flow Rate 0 Fraction of Inspired Oxygen 0 09/16/23 14:00 09/16/23 14:20 09/16/23 14:40 Temperature Pulse Rate 133 H 136 H 135 H Respiratory Rate Blood Pressure 105/57 L 101/47 L 102/72 Pulse Oximetry Oxygen Delivery Oxygen Flow Rate Fraction of Inspired Oxygen 09/16/23 15:00 09/16/23 15:20 09/16/23 15:40 Temperature Pulse Rate 133 H 132 H 133 H Respiratory Rate Blood Pressure 104/62 92/55 L 92/62 L Pulse Oximetry Oxygen Delivery Oxygen Flow Rate Fraction of Inspired Oxygen 09/16/23 16:00 09/16/23 16:20 09/16/23 16:40 Temperature Pulse Rate 135 H 135 H 120 H Respiratory Rate Blood Pressure 88/40 L 108/57 L 125/55 L Pulse Oximetry Oxygen Delivery Oxygen Flow Rate Fraction of Inspired Oxygen 09/16/23 17:00 09/16/23 17:15 09/16/23 17:40 Temperature 36.9 C Pulse Rate 136 H 131 H 130 H Respiratory Rate 18 Blood Pressure 145/65 H 99/59 L 90/49 L Pulse Oximetry Oxygen Delivery Oxygen Flow Rate Fraction of Inspired Oxygen 09/16/23 17:55 09/16/23 20:00 09/16/23 21:08 Temperature 37.2 C Pulse Rate 115 H Respiratory Rate 17 Blood Pressure 100/61 96/56 L Pulse Oximetry 100 Oxygen Delivery Room Air Oxygen Flow Rate Fraction of Inspired Oxygen 0 09/16/23 22:24 09/16/23 22:00 09/16/23 20:40 Temperature 35.7 C L Pulse Rate 120 H 127 H Respiratory Rate 20 Blood Pressure 92/57 L Pulse Oximetry 100 100 Oxygen Delivery Room Air Oxygen Flow Rate Fraction of Inspired Oxygen 09/17/23 00:57 09/17/23 00:58 09/17/23 05:01 Temperature 35.9 C L Pulse Rate 104 H 93 Respiratory Rate 20 Blood Pressure 96/61 L 102/62 Pulse Oximetry 96 Oxygen Delivery Oxygen Flow Rate Fraction of Inspired Oxygen Intake/Output Intake/Output: Intake & Output 09/14/23 09/15/23 09/16/23 09/17/23 23:59 23:59 23:59 23:59 Intake Total 436 1022 2440 25 Output Total 0 900 0 Balance 296 322 8857 25 Meds/Results Medications: Active Medications Generic Name Dose Route Start Last Admin Trade Name Freq PRN Reason Stop Dose Admin Acetaminophen 500 mg 09/09/23 01:19 09/11/23 12:56 Acetaminophen 500 Mg Tablet PO 500 mg Q6H PRN Administration Pain 1-6 Apixaban 5 mg 09/09/23 09:00 09/16/23 20:37 Apixaban 5 Mg Tablet PO 5 mg Q12HR AURELIO Administration Aspirin 81 mg 09/09/23 09:00 09/16/23 10:49 Aspirin 81 Mg Enteric Tablet PO 10/09/23 08:59 Not Given DAILY AURELIO Atorvastatin Calcium 40 mg 09/09/23 21:00 09/16/23 20:38 Atorvastatin 40 Mg Tablet PO 40 mg HS AURELIO Administration Citalopram Hydrobromide 20 mg 09/14/23 09:00 09/16/23 10:49 Citalopram Hydrobromide 20 Mg Tablet PO Not Given DAILY AURELIO Dextrose
--- NOTE | 2023-09-17 10:14 | PM.PNCARD ---
Progress Note: A&P Assessment and Plan (1) Altered mental status: Code(s): R41.82 - Altered mental status, unspecified Status: Acute Assessment and Plan: Likely related to underlying pneumonia, sacral decubitus ulcer, possible sepsis (2) Discitis of lumbar region: Code(s): M46.46 - Discitis, unspecified, lumbar region Status: Acute Assessment and Plan: He likely needs neurosurgical evaluation. Continue antibiotics. Regarding need for CHERYL, will obviously need long-term antibiotics anyway.. MRI of spine has been performed but results pending. Await blood cultures. Echocardiogram is personally reviewed and is a Difficult quality study and there is certainly thickening of the aortic and mitral valves but no obvious vegetation. I question if a CHERYL is going to change much in his particular case but can perform when more stable. 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 Continue metoprolol and up titrate as need be (6) CAD (coronary artery disease): Code(s): I25.10 - Atherosclerotic heart disease of [place] coronary artery without angina pectoris Status: Acute Assessment and Plan: No clear anginal symptoms at present. Back on statin since taking p.o. Subjective Date/time seen: 09/17/23 10:14 Interval history: 73-year-old admitted for altered mental status Date of service 05/17/2023: Still confused. No chest pain. Review of Systems Review of Systems: All systems reviewed & are unremarkable except as noted in HPI and below Constitutional: Constitutional: Denies excessive sweating and Reports weakness Eyes: Eyes: Denies blurry vision ENT: Reports Normal hearing present Cardiovascular: Cardiovascular: Denies chest pain Respiratory: Respiratory: Denies hemoptysis Gastrointestinal: Gastrointestinal: Denies abdominal pain and Reports bloating Genitourinary: Genitourinary: Denies hematuria Musculoskeletal: Musculoskeletal: Denies arthralgias Integumentary/Breasts: Skin/Breast: Reports wounds Neurologic: Reports Normal hearing present, Reports Abnormal speech present, Reports confusion and Reports weakness Psychiatric: Psychiatric: Reports confusion Endocrine: Endocrine: Denies excessive sweating Hematologic/Lymphatic: Hematologic/Lymphatic: Denies easy bleeding Allergic/Immunologic: Allergic/Immunologic: Denies GI upset with certain foods Exam Narrative: Patient is awake alert but confused. Appears older than stated age Const: General: comfortable, no acute distress and confusion Orientation/consciousness: confusion HENMT: Face/Nose/Sinus: Normal nares present Mouth: Yes dry mucous membranes Eyes: Sclera: sclerae normal Neck: Neck: supple and no JVD Carotids: no bruits Chest: Other: No reproducible chest wall pain to palpation Resp: Effort & Inspection: normal respiratory effort Auscultation: crackles Cardio: Rate: regular rate Rhythm: abnormal rhythm irregularly irregular Heart sounds: Murmur heart sound present GI: Inspection: non-distended Skin: General skin exam: normal color and wounds noted Wounds: wounds noted Neuro: General: confusion Cranial nerves: Yes Normal hearing present Speech: normal speech (Mumbled speech) and Abnormal speech present Motor exam (neuro): Abnormal motor strength present (Decreased strength overall) Extrem: General: no edema Other: Status post right AKA.
[2023-09-17] MEDS: MIDODRINE HCL 10 MG TABLET 20 MG PO ×3 (10:19→17:20)
[2023-09-17] MEDS: POTASSIUM CHLORIDE 20 MEQ PACKET (FOR LIQUID) 40 MEQ PO ×2 (10:19→17:20)
[2023-09-17] MEDS: PRAMIPEXOLE 0.5 MG TABLET PO ×2 (10:20→20:31)
[2023-09-17] MEDS: METOPROLOL TARTRATE 12.5 MG TABLET PO ×2 (10:20→20:31)
[2023-09-17] MEDS: CITALOPRAM HYDROBROMIDE 20 MG TABLET PO (10:20)
[2023-09-17] MEDS: ASPIRIN 81 MG ENTERIC TABLET PO (10:20)
[2023-09-17] MEDS: SENNA/DOCUSATE SODIUM TABLET 1 TAB PO ×2 (10:20→20:31)
[2023-09-17] MEDS: SEVELAMER CARBONATE 800 MG TABLET PO ×3 (10:20→17:20)
[2023-09-17] MEDS: APIXABAN 5 MG TABLET PO ×2 (10:20→20:31)
[2023-09-17 12:10] LABS: Glucose Point of Care 187 mg/dl (65-105)
--- NOTE | 2023-09-17 12:50 | WPDNEURCNPN ---
Consult date: 09/17/23 HPI: Erma Harmon is a 73 year old male Seen initially on September 14, 2023 for the complaints of change in the mental status at that particular time he was receiving multiple medications. Also had the history of atrial fibrillation, av fistula, end-stage renal disease for which he is on on dialysis, and obstructive sleep apnea, and also seizure disorder. At present is saving apixaban 5 mg twice a day with aspirin 81 mg daily and atorvastatin 40 mg at night in addition to baclofen, citalopram, Sherrie drain, pramipexole, at present he is CBC shows no leukocytosis hemoglobin is 10.7 with platelet count of 321 but his MCV is 106.0 with RBCs 3.16 and hemoglobin 10.7 he is scheduled to have the lumbar spine MRI for the suspicions of the disc infection. Patient has been raised regarding the possibility of change in mental status. Renal ch he has end-stage renal disease on dialysis on a Tuesday and Tuesday PMF Past Medical History Medical History Atrial fibrillation AV fistula 3 attempts BPH (benign prostatic hyperplasia) Depression with anxiety DM2 (diabetes mellitus, type 2) ESRD (end stage renal disease) on dialysis HLD (hyperlipidemia) HTN (hypertension) Obstructive sleep apnea Seizure disorder Surgical History Surgical History H/O carpal tunnel repair H/O cataract extraction H/O cystoscopy H/O eye surgery H/O four vessel coronary artery bypass graft H/O heart artery stent X3 H/O shoulder surgery Left shoulder History of back surgery X3 History of bladder surgery History of parathyroid surgery Hx of nephrostomy Many years ago S/P cubital tunnel release Family History Family History Father No problems noted. Sibling Hypertension Cancer Grandparent Hypertension Diabetes mellitus Mother Ovarian cancer Sibling Cancer Social History Social History Social History: The patient has 5 children in the last child has Down syndrome. That child lives with him and his . 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 Code status full code Smoking status: Never smoker Alcohol intake: never Substance use: never Lack of Transportation: No Lack of Food: Sometimes True Current Housing: I Have Housing Concerned About Future Housing: No Difficulty Paying Gas/Electric Bills: YES Difficulty Paying for Meds: YES Currently Unemployed: No Education: High School Diploma/GED Difficulty w/ Childcare or Family Care: YES Spiritual care concerns: No Meds Home Medications and Allergies Home Medications Medication Instructions Recorded Confirmed Type atorvastatin 40 mg tablet 40 mg PO HS 12/11/19 09/08/23 History finasteride 5 mg tablet 5 mg PO HS 10/02/20 09/08/23 History citalopram 20 mg tablet 20 mg PO DAILY 03/03/23 09/08/23 History sevelamer carbonate 800 mg tablet 800 mg PO TID 03/03/23 09/08/23 History acetaminophen 500 mg tablet 500 mg PO Q6H PRN Pain 1-6 09/08/23 09/08/23 History apixaban 5 mg tablet (Eliquis) 5 mg PO BID 09/08/23 09/08/23 History aspirin 81 mg tablet 81 mg PO DAILY 09/08/23 09/08/23 History baclofen 5 mg tablet 5 mg PO BID 09/08/23 09/08/23 History epoetin albert-epbx 3,000 unit/mL 3,000 unit subcut 3XW anemia 09/08/23 09/08/23 History injection solution (Retacrit) miconazole nitrate 2 % topical 1 applic topical BID 09/08/23 09/08/23 History cream potassium chloride 20 mEq 20 meq PO BID 09/08/23 09/08/23 History tablet,extended release pramipexole 0.5 mg tablet (Mirapex) 0.5 mg PO BID 09/08/23 09/08/23 History sennosides 8.6 mg-docusate sodium 1 tab-cap PO BID 09/08/23 09/08/23 History 52
[2023-09-17] MEDS: PANTOPRAZOLE SODIUM IV 40 MG VIAL IV PUSH ×2 (12:55→21:07)
--- NOTE | 2023-09-17 14:25 | P.PNNP_ITS ---
Progress Note: A&P Assessment and Plan (1) End stage renal disease: Code(s): N18.6 - End stage renal disease Status: Chronic Assessment and Plan: * HD was done yesterday. * Will do the next 1 per his outpatient schedule on Tuesday. * outpatient dialysis done at [facility] under the care of Dr. Wesley Santiago * Volume status looks okay. * Potassium has been fine. * Will check labs in the morning (2) Altered mental status: Code(s): R41.82 - Altered mental status, unspecified Status: Acute Assessment and Plan: * still confused (and continues to fluctuate) * thought to be secondary to infection (pneumonia +/- left foot wounds +/- decubitus ulcer) * Blood cultures are negative * on vancomycin plus Zosyn. * CT of head shows nothing acute * follow mentation (3) Hypokalemia: Code(s): E87.6 - Hypokalemia Status: Acute Assessment and Plan: * suspect due to poor oral intake * On a regular diet. * Check a potassium tomorrow. (4) Ileus: Code(s): K56.7 - Ileus, unspecified Status: Acute Assessment and Plan: * as noted by recent imaging * NGT was in place but patient removed it overnight * Dietary orders per surgery. * Surgery following (5) Discitis of lumbar region: Code(s): M46.46 - Discitis, unspecified, lumbar region Status: Acute Assessment and Plan: * incidental finding of CT imaging * already on antibiotic therapy * culture data noted * further testing needed?? (6) Pneumonia: Code(s): J18.9 - Pneumonia, unspecified organism Status: Acute Assessment and Plan: * suspect based on imaging to date * on above meds as listed. * monitor respiratory status (7) Atrial fibrillation: Code(s): I48.91 - Unspecified atrial fibrillation Status: Chronic Assessment and Plan: * rate control strategy * Rhythm is regular today. * already on anticoagulation (8) Anemia: Code(s): D64.9 - Anemia, unspecified Status: Chronic Assessment and Plan: * due to ESRD and acute illness * Epogen with HD * Hemoglobin target at 10.7 yesterday. (9) HTN (hypertension): Code(s): I10 - Essential (primary) hypertension Status: Chronic Assessment and Plan: * Systolic ranging between 96 and 1 O2 today. (10) DM2 (diabetes mellitus, type 2): Code(s): E11.9 - Type 2 diabetes mellitus without complications Status: Chronic Assessment and Plan: * follow accu-cheks * glycemic control per hospitalists Subjective Date/time seen: 09/17/23 14:25 Interval history: Patient is comfortable in bed. He seems confused. is in the room. Exam Narrative: General: chronically ill appearing male in NAD Heart: normal S1 and S2; no rub or gallop Lungs: clear anteriorly Abdomen: soft, nontender, mildly distended, hypoactive bowel sounds Extremities: right AKA Skin: left foot - dark with necrotic toe wounds apparent Objective Data Vital Signs Vital Signs: Vital Signs - 24 hr 09/16/23 14:40 09/16/23 15:00 09/16/23 15:20 Temperature Pulse Rate 135 H 133 H 132 H Respiratory Rate Blood Pressure 102/72 104/62 92/55 L Pulse Oximetry Oxygen Delivery Fraction of Inspired Ox
--- NOTE | 2023-09-17 14:25 | PM.PNNEP ---
Progress Note: A&P Assessment and Plan (1) End stage renal disease: Code(s): N18.6 - End stage renal disease Status: Chronic Assessment and Plan: HD was done yesterday. Will do the next 1 per his outpatient schedule on Tuesday. outpatient dialysis done at [facility] under the care of Dr. Wesley Santiago Volume status looks okay. Potassium has been fine. Will check labs in the morning (2) Altered mental status: Code(s): R41.82 - Altered mental status, unspecified Status: Acute Assessment and Plan: still confused (and continues to fluctuate) thought to be secondary to infection (pneumonia +/- left foot wounds +/- decubitus ulcer) Blood cultures are negative on vancomycin plus Zosyn. CT of head shows nothing acute follow mentation (3) Hypokalemia: Code(s): E87.6 - Hypokalemia Status: Acute Assessment and Plan: suspect due to poor oral intake On a regular diet. Check a potassium tomorrow. (4) Ileus: Code(s): K56.7 - Ileus, unspecified Status: Acute Assessment and Plan: as noted by recent imaging NGT was in place but patient removed it overnight Dietary orders per surgery. Surgery following (5) Discitis of lumbar region: Code(s): M46.46 - Discitis, unspecified, lumbar region Status: Acute Assessment and Plan: incidental finding of CT imaging already on antibiotic therapy culture data noted further testing needed?? (6) Pneumonia: Code(s): J18.9 - Pneumonia, unspecified organism Status: Acute Assessment and Plan: suspect based on imaging to date on above meds as listed. monitor respiratory status (7) Atrial fibrillation: Code(s): I48.91 - Unspecified atrial fibrillation Status: Chronic Assessment and Plan: rate control strategy Rhythm is regular today. already on anticoagulation (8) Anemia: Code(s): D64.9 - Anemia, unspecified Status: Chronic Assessment and Plan: due to ESRD and acute illness Epogen with HD Hemoglobin target at 10.7 yesterday. (9) HTN (hypertension): Code(s): I10 - Essential (primary) hypertension Status: Chronic Assessment and Plan: Systolic ranging between 96 and 1 O2 today. (10) DM2 (diabetes mellitus, type 2): Code(s): E11.9 - Type 2 diabetes mellitus without complications Status: Chronic Assessment and Plan: follow accu-cheks glycemic control per hospitalists Subjective Date/time seen: 09/17/23 14:25 Interval history: Patient is comfortable in bed. He seems confused. is in the room. Exam Narrative: General: chronically ill appearing male in NAD Heart: normal S1 and S2; no rub or gallop Lungs: clear anteriorly Abdomen: soft, nontender, mildly distended, hypoactive bowel sounds Extremities: right AKA Skin: left foot - dark with necrotic toe wounds apparent Objective Data Vital Signs Vital Signs: Vital Signs - 24 hr 09/16/23 14:40 09/16/23 15:00 09/16/23 15:20 Temperature Pulse Rate 135 H 133 H 132 H Respiratory Rate Blood Pressure 102/72 104/62 92/55 L Pulse Oximetry Oxygen Delivery Fraction of Inspired Oxygen 09/16/23 15:40 09/16/23 16:00 09/16/23 16:20 Temperature Pulse Rate 133 H 135 H 135 H Respiratory Rate Blood Pressure 92/62 L 88/40 L 108/57 L Pulse Oximetry Oxygen Delivery Fraction of Inspired Oxygen 09/16/23 16:40 09/16/23 17:00 09/16/23 17:15 Temperature Pulse Rate 120 H 136 H 131 H Respiratory Rate Blood Pressure 125/55 L 145/65 H 99/59 L Pulse Oximetry Oxygen Delivery Fraction of Inspired Oxygen 09/16/23 17:40 09/16/23 17:55 09/16/23 20:00 Temperature 98.5 F 99.0 F Pulse Rate 130 H 115 H Respiratory Rate 18 17 Blood Pressure 90/49 L 100/61 Pulse Oximetry 100 Oxygen Delivery Room Air Fraction of
--- NOTE | 2023-09-17 15:27 | PM.IMPN ---
Progress Note: A&P Assessment and Plan (1) Pneumonia: Code(s): J18.9 - Pneumonia, unspecified organism Status: Acute Assessment and Plan: Continue vancomycin and Zosyn (2) Encephalopathy: Code(s): G93.40 - Encephalopathy, unspecified Status: Acute Assessment and Plan: Likely due to acute infection and end-stage renal disease (3) DM2 (diabetes mellitus, type 2): Code(s): E11.9 - Type 2 diabetes mellitus without complications Status: Chronic Assessment and Plan: 09/17/2023 blood sugar control adequate (4) Ileus: Code(s): K56.7 - Ileus, unspecified Status: Acute Assessment and Plan: Likely due to acute infection Clinically resolving (5) Discitis of lumbar region: Code(s): M46.46 - Discitis, unspecified, lumbar region Status: Acute Assessment and Plan: Continue vancomycin and Zosyn MRI of LS spine pending (6) ESRD (end stage renal disease) on dialysis: Code(s): N18.6 - End stage renal disease; Z99.2 - Dependence on renal dialysis Status: Acute Assessment and Plan: Continue dialysis Tuesday (7) Ulcer of left foot: Code(s): L97.529 - Non-pressure chronic ulcer of other part of left foot with unspecified severity Status: Acute Assessment and Plan: Continue dressing changes and antibiotics (8) CAD (coronary artery disease): Code(s): I25.10 - Atherosclerotic heart disease of [place] coronary artery without angina pectoris Status: Acute Assessment and Plan: Without anginal symptoms at present (9) Atrial fibrillation: Code(s): I48.91 - Unspecified atrial fibrillation Status: Chronic Assessment and Plan: Continue long-term anticoagulation Subjective Date/time seen: 09/17/23 15:27 Interval history: Still confused. Denied pain is of breath. Tolerating full liquids. Bowels moved yesterday. Denied complains of some discomfort in his hip girdle but mild and somewhat aggravated by light better with changing position. Review of Systems Review of Systems: All systems reviewed & are unremarkable except as noted in HPI and below Exam Narrative: Elderly gentleman lying comfortably in his hospital bed. Right AKA stump intact. Bandaging over the and toes of left lower extremity. Head normocephalic. Sclerae nonicteric. Pupils equal and reactive. Oral mucosa pink and moist. Neck without JVD. Chest with slightly coarse breath sounds and normal effort. Heart with normal S1 and S2, regular rate, soft 2/6 systolic ejection murmur right upper sternal border. Extremities without edema. Abdomen protuberant but soft with bowel sounds present, nontender, no palpable mass or organomegaly. Musculoskeletal right AKA otherwise no significant deformities. Neurologic cranial nerves intact to inspection. Tone and strength symmetric both upper extremities intact in left lower extremity as well. Psychiatric alert. Oriented to person only. Thought the year was 193. Objective Data Vital Signs Vital Signs: Vital Signs - 24 hr 09/16/23 15:40 09/16/23 16:00 09/16/23 16:20 Temperature Pulse Rate 133 H 135 H 135 H Respiratory Rate Blood Pressure 92/62 L 88/40 L 108/57 L Pulse Oximetry Oxygen Delivery Fraction of Inspired Oxygen 09/16/23 16:40 09/16/23 17:00 09/16/23 17:15 Temperature Pulse Rate 120 H 136 H 131 H Respiratory Rate Blood Pressure 125/55 L 145/65 H 99/59 L Pulse Oximetry Oxygen Delivery Fraction of Inspired Oxygen 09/16/23 17:40 09/16/23 17:55 09/16/23 20:00 Temperature 98.5 F 99.0 F Pulse Rate 130 H 115 H Respiratory Rate 18 17 Blood Pressure 90/49 L 100/61 Pulse Oximetry 100 Oxygen Delivery Room Air Fraction of Inspired Oxygen 0 09/16/23 21:08 09/16/23 22:24 09/16/23 22:00 Temperature 96.3 F L Pulse Rate 120 H 127 H Respiratory Rate 20 Blood Pressure
[2023-09-17 18:26] LABS: Glucose Point of Care 139 mg/dl (65-105)
[2023-09-17] MEDS: FINASTERIDE 5 MG TABLET PO (20:31)
[2023-09-17] MEDS: ATORVASTATIN 40 MG TABLET PO (20:31)
[2023-09-17 20:44] LABS: Glucose Point of Care 171 mg/dl (65-105)
[2023-09-17] MEDS: SODIUM CHLORIDE 0.9% IV 1,000 ML 50 ML IV CONT (21:28)
[2023-09-18] VITALS (7 sets, daily range): BP systolic 104–125; BP diastolic 64–72; PULSE 56–98; RESP 16–28; TEMP 35.9–37.1; O2SAT 96–100
--- NOTE | 2023-09-18 01:20 | PC.NURSE ---
Daylight Savings Time For Daylight Savings Time Ending in the Fall - Clocks are moved back. For Daylight Savings Time Beginning in the Spring - Clocks are moved ahead. For [facility], the time of change occurs at 0200 hrs. Time is taken from the cafeteria food server. This entry on the patient's chart recognizes the change in time reflected during documentation. Example: 2 entries for vital signs may be charted for 0200 hrs.
[2023-09-18] MEDS: PIPERACILLIN/TAZ 2.25G/NS 50ML 2.25 GM/50 ML BAG IVPB ×3 (05:18→21:04)
--- NOTE | 2023-09-18 05:50 | PC.NURSE ---
kirstin informed this Rn that RR 32, rechecked RR 24, paused fluids and informed MD Laird.
[2023-09-18 06:47] LABS: Hematocrit 36.7 % (42.0-52.0); Hemoglobin 11.1 g/dL (14.0-18.0); Mean Corpuscular HGB Conc 30.2 g/dl (32-36); Mean Corpuscular Hemoglobin 32.6 pg (26-34); Mean Corpuscular Volume 107.9 fl (80-100); Platelet Count Result 275 k/mm3 (150-375); White Blood Count 8.6 K/mm3 (4.5-10.0)
[2023-09-18 07:07] LABS: Albumin Level 3.3 g/dL (3.5-5.1); Anion Gap 11 mmol/L (8-16); Blood Urea Nitrogen 30 mg/dL (9-20); Calcium 8.7 mg/dL (8.4-10.2); Carbon Dioxide 26 mmol/L (22-30); Chloride 106 mmol/L (98-107); Estimated CRCL calculation 18 ml/min; Estimated Glomerular Filt Rate 16; Glucose 146 mg/dL (65-110); Phosphorus 3.2 mg/dL (2.5-4.5); Potassium 3.1 mmol/L (3.4-5.0); Sodium 143 mmol/L (137-145)
[2023-09-18 08:10] LABS: Glucose Point of Care 135 mg/dl (65-105)
--- NOTE | 2023-09-18 09:18 | PM.PNGS ---
Progress Note: A&P Assessment and Plan (1) Ileus: Code(s): K56.7 - Ileus, unspecified Status: Acute Assessment and Plan: resolving, estefanía full liquids, exam benign, will ADAT, no acute surgical issues, will s/o, call c?s, issues Subjective Subjective Date/Time Seen: 09/18/23 09:18 Interval history: feels ok, estefanía full liquids, +bowel fxn Review of Systems Review of Systems: All systems reviewed & are unremarkable except as noted in HPI and below Exam Const: General: cooperative, comfortable and no acute distress Resp: Auscultation: diminished lung sounds Cardio: Rate: regular rate Rhythm: regular rhythm GI: Inspection: normal to inspection and distended GI Palp: No abdominal tenderness, Yes Soft to palpation, No Tenderness to palpation present (GI), No Guarding due to palpation present (GI) and No Rigid due to palpation Objective Data Vital Signs Vital Signs: Vital Signs - 24 hr 09/17/23 14:05 09/17/23 19:25 09/17/23 20:31 Temperature 36.8 C Pulse Rate 99 98 Respiratory Rate 16 Blood Pressure 106/80 Pulse Oximetry 98 98 Oxygen Delivery Room Air Fraction of Inspired Oxygen 0 09/17/23 20:07 09/18/23 04:50 Temperature 35.6 C L 35.9 C L Pulse Rate 98 91 Respiratory Rate 20 20 Blood Pressure 112/77 123/72 Pulse Oximetry 97 98 Oxygen Delivery Fraction of Inspired Oxygen Intake/Output Intake/Output: Intake & Output 09/15/23 09/16/23 09/17/23 09/18/23 23:59 23:59 23:59 22:59 Intake Total 1022 2440 2265 50 Output Total 900 0 Balance 122 2440 2265 50 Meds/Results Medications: Active Medications Generic Name Dose Route Start Last Admin Trade Name Freq PRN Reason Stop Dose Admin Acetaminophen 500 mg 09/09/23 01:19 09/11/23 12:56 Acetaminophen 500 Mg Tablet PO 500 mg Q6H PRN Administration Pain 1-6 Apixaban 5 mg 09/09/23 09:00 09/17/23 20:31 Apixaban 5 Mg Tablet PO 5 mg Q12HR AURELIO Administration Aspirin 81 mg 09/09/23 09:00 09/17/23 10:20 Aspirin 81 Mg Enteric Tablet PO 10/09/23 08:59 81 mg DAILY AURELIO Administration Atorvastatin Calcium 40 mg 09/09/23 21:00 09/17/23 20:31 Atorvastatin 40 Mg Tablet PO 40 mg HS AURELIO Administration Citalopram Hydrobromide 20 mg 09/14/23 09:00 09/17/23 10:20 Citalopram Hydrobromide 20 Mg Tablet PO 20 mg DAILY AURELIO Administration Dextrose 12.5 gm 09/09/23 10:11 Dextrose 50% 25 Gm/50 Ml Syringe IV PUSH PRN PRN Hypoglycemia Protocol Finasteride 5 mg 09/09/23 21:00 09/17/23 20:31 Finasteride 5 Mg Tablet PO 5 mg HS AURELIO Administration Glucagon 1 mg 09/09/23 10:11 Glucagon For Inj 1 Mg Vial IM PRN PRN Hypoglycemia Protocol Glucose 15 gm 09/09/23 10:11 Glucose Oral Gel 15 Gm Of Glucse In 37.5 Gm Tube PO PRN PRN Hypoglycemia Protocol Albumin Human 50 mls @ 999 mls/hr 09/09/23 06:29 09/16/23 13:57 Albutein IVPB 10/09/23 06:28 999 mls/hr Q10M PRN Administration HYPOTENSION Dextrose 1,000 mls @ 100 mls/hr 09/09/23 10:11 Dextrose 5% 1,000 Ml IVPB PRN PRN Hypoglycemia Protocol Piperacillin Sod/Tazobactam Sod 2.25 gm in 50 mls @ 100 mls/hr 09/14/23 22:00 09/18/23 05:18 Zosyn 2.25 Gm/Ns 50 Ml IVPB 100 mls/hr Q8HR AURELIO Administration Sodium Chloride 1,000 mls @ 50 mls/hr 09/15/23 15:00 09/17/23 21:28 Normal Saline Iv IV CONT 50 mls/hr .Q20H AURELIO Administration Insulin Aspart 2 - 5 units 09/09/23 12:00 09/17/23 18:12 Insulin Aspart (*Bkc) 100 Units/Ml SUB-Q Not Given TIDWM AURELIO Protocol Metoprolol Tartrate 12.5 mg 09/12/23 21:00 09/17/23 20:31 Metoprolol Tartrate 12.5 Mg Tablet PO 12.5 mg Q12HR AURELIO Administration Metoprolol Tartrate 2.5 mg 09/15/23 16:01 09/15/23 16:30 Metoprolol Tartrate Inj 5 Mg/5 Ml Vial IV PUSH 2.5 mg Q6H PRN Administration Tachyarrhythmias Miconazole Nitrate 1 applic 09/09/
[2023-09-18] MEDS: ASPIRIN 81 MG ENTERIC TABLET PO (09:45)
[2023-09-18] MEDS: CITALOPRAM HYDROBROMIDE 20 MG TABLET PO (09:45)
[2023-09-18] MEDS: POTASSIUM CHLORIDE 20 MEQ ER TABLET 40 MEQ PO (09:45)
[2023-09-18] MEDS: MIDODRINE HCL 10 MG TABLET 20 MG PO ×3 (09:46→16:33)
[2023-09-18] MEDS: SENNA/DOCUSATE SODIUM TABLET 1 TAB PO (09:46)
[2023-09-18] MEDS: APIXABAN 5 MG TABLET PO ×2 (09:46→20:28)
[2023-09-18] MEDS: PRAMIPEXOLE 0.5 MG TABLET PO ×2 (09:46→20:28)
[2023-09-18] MEDS: SEVELAMER CARBONATE 800 MG TABLET PO ×3 (09:46→16:33)
[2023-09-18] MEDS: POTASSIUM CHLORIDE 20 MEQ PACKET (FOR LIQUID) 40 MEQ PO ×2 (09:46→16:34)
[2023-09-18] MEDS: METOPROLOL TARTRATE 12.5 MG TABLET PO ×2 (09:47→20:28)
[2023-09-18] MEDS: PANTOPRAZOLE SODIUM IV 40 MG VIAL IV PUSH ×2 (09:53→21:04)
[2023-09-18 12:34] LABS: Glucose Point of Care 164 mg/dl (65-105)
--- NOTE | 2023-09-18 12:48 | PM.IMPN ---
Progress Note: A&P Assessment and Plan (1) Pneumonia: Code(s): J18.9 - Pneumonia, unspecified organism Status: Acute Assessment and Plan: Continue vancomycin and Zosyn (2) Encephalopathy: Code(s): G93.40 - Encephalopathy, unspecified Status: Acute Assessment and Plan: Likely due to acute infection and end-stage renal disease (3) DM2 (diabetes mellitus, type 2): Code(s): E11.9 - Type 2 diabetes mellitus without complications Status: Chronic Assessment and Plan: 09/17/2023 blood sugar control adequate (4) Ileus: Code(s): K56.7 - Ileus, unspecified Status: Acute Assessment and Plan: Likely due to acute infection Clinically resolving (5) Discitis of lumbar region: Code(s): M46.46 - Discitis, unspecified, lumbar region Status: Acute Assessment and Plan: Continue vancomycin and Zosyn MRI of t-spine and LS spine reports pending (6) ESRD (end stage renal disease) on dialysis: Code(s): N18.6 - End stage renal disease; Z99.2 - Dependence on renal dialysis Status: Acute Assessment and Plan: Continue dialysis Tuesday (7) Ulcer of left foot: Code(s): L97.529 - Non-pressure chronic ulcer of other part of left foot with unspecified severity Status: Acute Assessment and Plan: Continue dressing changes and antibiotics (8) CAD (coronary artery disease): Code(s): I25.10 - Atherosclerotic heart disease of [place] coronary artery without angina pectoris Status: Acute Assessment and Plan: Without anginal symptoms at present (9) Atrial fibrillation: Code(s): I48.91 - Unspecified atrial fibrillation Status: Chronic Assessment and Plan: Continue long-term anticoagulation Subjective Date/time seen: 09/18/23 12:48 Interval history: Still confused. Denied chest pain or dyspnea. Tolerating full liquids. Bowels moved. C/o of some discomfort in his hip girdle but mild and somewhat aggravated by lying still and better with changing position. Review of Systems Review of Systems: All systems reviewed & are unremarkable except as noted in HPI and below Exam Narrative: Elderly gentleman lying comfortably in his hospital bed. Right AKA stump intact. Bandaging over the and toes of left lower extremity. Head normocephalic. Sclerae nonicteric. Pupils equal and reactive. Oral mucosa pink and moist. Neck without JVD. Chest with slightly coarse breath sounds and normal effort. Heart with normal S1 and S2, regular rate, soft 2/6 systolic ejection murmur right upper sternal border. Extremities without edema. Abdomen protuberant but soft with bowel sounds present, nontender, no palpable mass or organomegaly. Musculoskeletal right AKA otherwise no significant deformities. Neurologic cranial nerves intact to inspection. Tone and strength symmetric both upper extremities intact in left lower extremity as well. Psychiatric alert. Oriented to person only. But pleasant and cooperative. Objective Data Vital Signs Vital Signs: Vital Signs - 24 hr 09/17/23 14:05 09/17/23 19:25 09/17/23 20:31 Temperature 98.2 F Pulse Rate 99 98 Respiratory Rate 16 Blood Pressure 106/80 Pulse Oximetry 98 98 Oxygen Delivery Room Air Fraction of Inspired Oxygen 0 09/17/23 20:07 09/18/23 04:50 09/18/23 09:47 Temperature 96.1 F L 96.7 F L Pulse Rate 98 91 68 Respiratory Rate 20 20 Blood Pressure 112/77 123/72 Pulse Oximetry 97 98 Oxygen Delivery Fraction of Inspired Oxygen 09/18/23 09:35 Temperature Pulse Rate Respiratory Rate Blood Pressure Pulse Oximetry 96 Oxygen Delivery Room Air Fraction of Inspired Oxygen Intake/Output Intake/Output: Intake & Output 09/15/23 09/16/23 09/17/23 09/18/23 23:59 23:59 23:59 22:59 Intake Total 1022 2440 2265 290 Output Total 900 0 Balance 122 2440 2265 290 Meds/Resu
[2023-09-18] MEDS: ACETAMINOPHEN 500 MG TABLET PO (12:52)
[2023-09-18] MEDS: SODIUM CHLORIDE 0.9% IV 1,000 ML 50 ML IV CONT (13:35)
--- NOTE | 2023-09-18 13:42 | P.PNNP_ITS ---
Progress Note: A&P Assessment and Plan (1) End stage renal disease: Code(s): N18.6 - End stage renal disease Status: Chronic Assessment and Plan: * HD was done Tuesday. * Will write orders for dialysis for tomorrow. * outpatient dialysis done at [facility] under the care of Dr. Wesley Santiago * Volume status looks okay. * Potassium 3.1 today. Probably because he is not eating well. * He is getting potassium supplements. * Will check labs in the morning (2) Altered mental status: Code(s): R41.82 - Altered mental status, unspecified Status: Acute Assessment and Plan: * still confused (and continues to fluctuate) * thought to be secondary to infection (pneumonia +/- left foot wounds +/- decubitus ulcer) * Blood cultures are negative * on vancomycin plus Zosyn. * CT of head shows nothing acute * Mentation is about the same. (3) Hypokalemia: Code(s): E87.6 - Hypokalemia Status: Acute Assessment and Plan: * suspect due to poor oral intake * On a regular diet. * Getting potassium supplement * Check level in the morning (4) Ileus: Code(s): K56.7 - Ileus, unspecified Status: Acute Assessment and Plan: * as noted by recent imaging * NGT was in place but patient removed it overnight * Dietary orders per surgery. * Surgery following (5) Discitis of lumbar region: Code(s): M46.46 - Discitis, unspecified, lumbar region Status: Acute Assessment and Plan: * On antibiotics (6) Pneumonia: Code(s): J18.9 - Pneumonia, unspecified organism Status: Acute Assessment and Plan: * suspect based on imaging to date * on above meds as listed. * Seems to be breathing comfortably right now. (7) Atrial fibrillation: Code(s): I48.91 - Unspecified atrial fibrillation Status: Chronic Assessment and Plan: * Heart rate is good. * Rhythm is regular * already on anticoagulation (8) Anemia: Code(s): D64.9 - Anemia, unspecified Status: Chronic Assessment and Plan: * due to ESRD and acute illness * Epogen with HD * Hemoglobin 11.1 today * if still high consider holding EPO tomorrow (9) HTN (hypertension): Code(s): I10 - Essential (primary) hypertension Status: Chronic Assessment and Plan: * Systolic ranging between 102 and 123 today. (10) DM2 (diabetes mellitus, type 2): Code(s): E11.9 - Type 2 diabetes mellitus without complications Status: Chronic Assessment and Plan: * follow accu-cheks * glycemic control per hospitalists Subjective Date/time seen: 09/18/23 13:42 Interval history: Patient is resting comfortably in bed. His is in the room. The patient has worn out because he had an MRI this morning. He has lunch in front of him but has not started eating. He does not have a very good appetite. Exam Narrative: General: chronically ill appearing male in NAD Heart: normal S1 and S2; no rub or gallop Lungs: clear bilaterally Abdomen: soft, nontender, mildly distended, hypoactive bowel sounds Extremities: right AKA Skin: left foot bandaged Objective Data Vital Signs Vital Signs: Vital Signs - 24 hr 09/17/23 19:25 09/17/23 20:31 09/17/23 20:07 Temperature 96.1 F L Pulse Rate 98
--- NOTE | 2023-09-18 13:42 | PM.PNNEP ---
Progress Note: A&P Assessment and Plan (1) End stage renal disease: Code(s): N18.6 - End stage renal disease Status: Chronic Assessment and Plan: HD was done Tuesday. Will write orders for dialysis for tomorrow. outpatient dialysis done at [facility] under the care of Dr. Wesley Santiago Volume status looks okay. Potassium 3.1 today. Probably because he is not eating well. He is getting potassium supplements. Will check labs in the morning (2) Altered mental status: Code(s): R41.82 - Altered mental status, unspecified Status: Acute Assessment and Plan: still confused (and continues to fluctuate) thought to be secondary to infection (pneumonia +/- left foot wounds +/- decubitus ulcer) Blood cultures are negative on vancomycin plus Zosyn. CT of head shows nothing acute Mentation is about the same. (3) Hypokalemia: Code(s): E87.6 - Hypokalemia Status: Acute Assessment and Plan: suspect due to poor oral intake On a regular diet. Getting potassium supplement Check level in the morning (4) Ileus: Code(s): K56.7 - Ileus, unspecified Status: Acute Assessment and Plan: as noted by recent imaging NGT was in place but patient removed it overnight Dietary orders per surgery. Surgery following (5) Discitis of lumbar region: Code(s): M46.46 - Discitis, unspecified, lumbar region Status: Acute Assessment and Plan: On antibiotics (6) Pneumonia: Code(s): J18.9 - Pneumonia, unspecified organism Status: Acute Assessment and Plan: suspect based on imaging to date on above meds as listed. Seems to be breathing comfortably right now. (7) Atrial fibrillation: Code(s): I48.91 - Unspecified atrial fibrillation Status: Chronic Assessment and Plan: Heart rate is good. Rhythm is regular already on anticoagulation (8) Anemia: Code(s): D64.9 - Anemia, unspecified Status: Chronic Assessment and Plan: due to ESRD and acute illness Epogen with HD Hemoglobin 11.1 today if still high consider holding EPO tomorrow (9) HTN (hypertension): Code(s): I10 - Essential (primary) hypertension Status: Chronic Assessment and Plan: Systolic ranging between 102 and 123 today. (10) DM2 (diabetes mellitus, type 2): Code(s): E11.9 - Type 2 diabetes mellitus without complications Status: Chronic Assessment and Plan: follow accu-cheks glycemic control per hospitalists Subjective Date/time seen: 09/18/23 13:42 Interval history: Patient is resting comfortably in bed. His is in the room. The patient has worn out because he had an MRI this morning. He has lunch in front of him but has not started eating. He does not have a very good appetite. Exam Narrative: General: chronically ill appearing male in NAD Heart: normal S1 and S2; no rub or gallop Lungs: clear bilaterally Abdomen: soft, nontender, mildly distended, hypoactive bowel sounds Extremities: right AKA Skin: left foot bandaged Objective Data Vital Signs Vital Signs: Vital Signs - 24 hr 09/17/23 19:25 09/17/23 20:31 09/17/23 20:07 Temperature 96.1 F L Pulse Rate 98 98 Respiratory Rate 20 Blood Pressure 112/77 Pulse Oximetry 98 97 Oxygen Delivery Room Air Fraction of Inspired Oxygen 0 09/18/23 04:50 09/18/23 09:47 09/18/23 09:35 Temperature 96.7 F L Pulse Rate 91 68 Respiratory Rate 20 Blood Pressure 123/72 Pulse Oximetry 98 96 Oxygen Delivery Room Air Fraction of Inspired Oxygen Intake/Output Intake/Output: Intake & Output 09/15/23 09/16/23 09/17/23 09/18/23 23:59 23:59 23:59 22:59 Intake Total 1022 2440 2265 1340 Output Total 900 0 Balance 122 2440 2265 1340 Meds/Results Medications: Active Medications Generic Name Dose Route Start Last
[2023-09-18 16:47] LABS: Glucose Point of Care 147 mg/dl (65-105)
[2023-09-18] MEDS: FINASTERIDE 5 MG TABLET PO (20:28)
[2023-09-18] MEDS: ATORVASTATIN 40 MG TABLET PO (20:28)
[2023-09-18 20:29] LABS: Glucose Point of Care 210 mg/dl (65-105)
[2023-09-19] VITALS (21 sets, daily range): BP systolic 91–125; BP diastolic 37–76; PULSE 51–135; RESP 16–20; TEMP 35.6–37; O2SAT 95–98
[2023-09-19] MEDS: PIPERACILLIN/TAZ 2.25G/NS 50ML 2.25 GM/50 ML BAG IVPB ×2 (05:02→13:25)
[2023-09-19 05:39] LABS: Hemoglobin 11.8 g/dL (14.0-18.0); Mean Corpuscular HGB Conc 30.3 g/dl (32-36); Mean Corpuscular Hemoglobin 32.9 pg (26-34); Mean Corpuscular Volume 108.6 fl (80-100); Mean Platelet Volume 8.6 fl (7.4-10.4); Platelet Count Result 276 k/mm3 (150-375); Red Blood Count 3.59 M/mm3 (4.6-6.20); Red Cell Distribution Width 17.3 % (11.5-14.5); White Blood Count 8.8 K/mm3 (4.5-10.0)
[2023-09-19 05:53] LABS: Albumin Level 3.2 g/dL (3.5-5.1); Anion Gap 13 mmol/L (8-16); Blood Urea Nitrogen 37 mg/dL (9-20); Calcium 8.4 mg/dL (8.4-10.2); Carbon Dioxide 16 mmol/L (22-30); Chloride 111 mmol/L (98-107); Estimated CRCL calculation 15 ml/min; Estimated Glomerular Filt Rate 13; Glucose 135 mg/dL (65-110); Magnesium 2.2 mg/dL (1.6-2.3); Phosphorus 3.4 mg/dL (2.5-4.5); Potassium 3.4 mmol/L (3.4-5.0); Sodium 140 mmol/L (137-145)
[2023-09-19 06:01] LABS: Vancomycin Random 13.7 ug/mL (10-20)
[2023-09-19 07:57] LABS: Glucose Point of Care 131 mg/dl (65-105)
[2023-09-19] MEDS: MIDODRINE HCL 10 MG TABLET 20 MG PO ×3 (08:36→17:29)
[2023-09-19] MEDS: ALBUMIN HUMAN 25% 12.5 GM/50ML 50 ML IVPB ×2 (09:01→10:25)
--- NOTE | 2023-09-19 09:26 | PM.IMPN ---
Progress Note: A&P Assessment and Plan (1) Pneumonia: Code(s): J18.9 - Pneumonia, unspecified organism Status: Acute Assessment and Plan: Continue vancomycin and Zosyn (2) Encephalopathy: Code(s): G93.40 - Encephalopathy, unspecified Status: Acute Assessment and Plan: Likely due to acute infection and end-stage renal disease (3) DM2 (diabetes mellitus, type 2): Code(s): E11.9 - Type 2 diabetes mellitus without complications Status: Chronic Assessment and Plan: 09/17/2023 blood sugar control adequate (4) Ileus: Code(s): K56.7 - Ileus, unspecified Status: Acute Assessment and Plan: Likely due to acute infection Clinically resolving (5) Discitis of lumbar region: Code(s): M46.46 - Discitis, unspecified, lumbar region Status: Acute Assessment and Plan: Continue vancomycin and Zosyn MRI of t-spine 1. Mild thoracic spondylosis. No evident osteomyelitis or other pathologic marrow replacing process. 2. Nonspecific lung disease in the bilateral lower lobes, most likely atelectasis and/or pneumonia with small right pleural effusion. LS spine reports 1. L2-L3 discitis with osteolysis involving significant portions of the L2 and L3 vertebral bodies. No evident paraspinal or epidural abscess. 2. Severe lumbar spondylosis Consult orthopedic surgeon for evaluation and management (6) ESRD (end stage renal disease) on dialysis: Code(s): N18.6 - End stage renal disease; Z99.2 - Dependence on renal dialysis Status: Acute Assessment and Plan: Continue dialysis Tuesday (7) Ulcer of left foot: Code(s): L97.529 - Non-pressure chronic ulcer of other part of left foot with unspecified severity Status: Acute Assessment and Plan: Continue dressing changes and antibiotics (8) CAD (coronary artery disease): Code(s): I25.10 - Atherosclerotic heart disease of [place] coronary artery without angina pectoris Status: Acute Assessment and Plan: Without anginal symptoms at present (9) Atrial fibrillation: Code(s): I48.91 - Unspecified atrial fibrillation Status: Chronic Assessment and Plan: Continue long-term anticoagulation Subjective Date/time seen: 09/19/23 09:26 Interval history: I saw exam patient today when patient was on dialysis. Patient denies chest pain dyspnea, but still has back pain, worse with movement. patient denies focal weakness Exam Narrative: Elderly gentleman lying comfortably in his hospital bed. Right AKA stump intact. Bandaging over the and toes of left lower extremity. Head normocephalic. Sclerae nonicteric. Pupils equal and reactive. Oral mucosa pink and moist. Neck without JVD. Chest with slightly coarse breath sounds and normal effort. Heart with normal S1 and S2, regular rate, soft 2/6 systolic ejection murmur right upper sternal border. Extremities without edema. Abdomen protuberant but soft with bowel sounds present, nontender, no palpable mass or organomegaly. Musculoskeletal right AKA otherwise no significant deformities. Neurologic cranial nerves intact to inspection. Tone and strength symmetric both upper extremities intact in left lower extremity as well. Psychiatric alert. Oriented to person only. But pleasant and cooperative. Objective Data Vital Signs Vital Signs: Vital Signs - 24 hr 09/18/23 09:47 09/18/23 09:35 09/18/23 14:00 Temperature 97.7 F Pulse Rate 68 98 Respiratory Rate 28 H Blood Pressure 104/67 Pulse Oximetry 96 100 Oxygen Delivery Room Air Fraction of Inspired Oxygen 09/18/23 19:30 09/18/23 20:28 09/18/23 22:00 Temperature 98.7 F Pulse Rate 74 56 L Respiratory Rate 16 Blood Pressure 125/64 Pulse Oximetry 100 99 Oxygen Delivery Room Air Fraction of Inspired Oxygen 0 09/19/23 06:00 Temperature 96.1 F L Pulse Rate 91 Respiratory Rat
--- NOTE | 2023-09-19 10:00 | PM.PNNEP ---
Progress Note: A&P Assessment and Plan (1) End stage renal disease: Code(s): N18.6 - End stage renal disease Status: Chronic Assessment and Plan: HD today continue M/W/ outpatient dialysis schedule outpatient dialysis done at [facility] under the care of Dr. Wesley Santiago follow electrolytes, volume status, and clearance (2) Altered mental status: Code(s): R41.82 - Altered mental status, unspecified Status: Acute Assessment and Plan: still confused (and continues to fluctuate) thought to be secondary to infection (pneumonia +/- left foot wounds +/- decubitus ulcer) blood cultures are negative on antibiotics CT of head shows nothing acute continue supportive therapy (3) Hypokalemia: Code(s): E87.6 - Hypokalemia Status: Acute Assessment and Plan: suspect due to poor oral intake on a regular diet getting potassium supplement adjust dialysis to compensate as well follow trend (4) Ileus: Code(s): K56.7 - Ileus, unspecified Status: Acute Assessment and Plan: better if not resolved as noted by recent imaging advance diet as tolerated Surgery signed off (5) Discitis of lumbar region: Code(s): M46.46 - Discitis, unspecified, lumbar region Status: Acute Assessment and Plan: on antibiotics lumbar MRI results notef further intervention?? (6) Pneumonia: Code(s): J18.9 - Pneumonia, unspecified organism Status: Acute Assessment and Plan: suspect based on imaging on admission on antibiotics respiratory status stable (7) Atrial fibrillation: Code(s): I48.91 - Unspecified atrial fibrillation Status: Chronic Assessment and Plan: rate control strategy already on anticoagulation (8) Anemia: Code(s): D64.9 - Anemia, unspecified Status: Chronic Assessment and Plan: due to ESRD and acute illness Epogen with HD follow trend of H/H (9) HTN (hypertension): Code(s): I10 - Essential (primary) hypertension Status: Chronic Assessment and Plan: well controlled follow trend of hemodynamics (10) DM2 (diabetes mellitus, type 2): Code(s): E11.9 - Type 2 diabetes mellitus without complications Status: Chronic Assessment and Plan: follow accu-cheks glycemic control per hospitalists Will continue to follow. Subjective Date/time seen: 09/19/23 10:00 Interval history: Follow-up for end stage renal disease on hemodialysis. Tolerating dialysis treatment at the time of my visit (seen on HD at 9:50PAM); still remains confused currently but in no apparent distress; respiratory status seems stable; no issues/events overnight or earlier this morning. Exam Narrative: General: chronically ill appearing male in NAD Heart: normal S1 and S2; no rub Lungs: clear bilaterally Abdomen: soft, nontender, mildly distended, hypoactive bowel sounds Extremities: no cyanosis or clubbing; s/p right AKA Skin: left foot dressing in place Objective Data Vital Signs Vital Signs: Vital Signs Temp Pulse Resp BP Pulse Ox O2 Del Method O2 Flow Rate 09/19/23 08:43 97.5 F L 113 H 16 108/75 09/19/23 08:43 0 09/19/23 06:00 96.1 F L 91 18 122/73 96 09/18/23 22:00 98.7 F 56 L 16 125/64 99 09/18/23 20:28 74 09/18/23 19:30 100 Room Air 09/18/23 14:00 97.7 F 98 28 H 104/67 100 Intake/Output Intake/Output: Intake & Output 09/17/23 09/18/23 09/18/23 09/19/23 00:59 00:59 23:59 23:59 Intake Total 350 Output Total Balance 350 Meds/Results Medications: Active Medications Generic Name Dose Route Start Last Admin Trade Name Freq PRN Reason Stop Dose Admin Acetaminophen 500 mg 09/09/23 01:19 09/18/23 12:52 Acetaminophen 500 Mg Tablet PO 500 mg Q6H PRN Administration Pain 1-6 Apixaban 5 m
--- NOTE | 2023-09-19 10:00 | P.PNNP_ITS ---
Progress Note: A&P Assessment and Plan (1) End stage renal disease: Code(s): N18.6 - End stage renal disease Status: Chronic Assessment and Plan: * HD today * continue M// outpatient dialysis schedule * outpatient dialysis done at [facility] under the care of Dr. Wesley Santiago * follow electrolytes, volume status, and clearance (2) Altered mental status: Code(s): R41.82 - Altered mental status, unspecified Status: Acute Assessment and Plan: * still confused (and continues to fluctuate) * thought to be secondary to infection (pneumonia +/- left foot wounds +/- decubitus ulcer) * blood cultures are negative * on antibiotics * CT of head shows nothing acute * continue supportive therapy (3) Hypokalemia: Code(s): E87.6 - Hypokalemia Status: Acute Assessment and Plan: * suspect due to poor oral intake * on a regular diet * getting potassium supplement * adjust dialysis to compensate as well * follow trend (4) Ileus: Code(s): K56.7 - Ileus, unspecified Status: Acute Assessment and Plan: * better if not resolved * as noted by recent imaging * advance diet as tolerated * Surgery signed off (5) Discitis of lumbar region: Code(s): M46.46 - Discitis, unspecified, lumbar region Status: Acute Assessment and Plan: * on antibiotics * lumbar MRI results notef * further intervention?? (6) Pneumonia: Code(s): J18.9 - Pneumonia, unspecified organism Status: Acute Assessment and Plan: * suspect based on imaging on admission * on antibiotics * respiratory status stable (7) Atrial fibrillation: Code(s): I48.91 - Unspecified atrial fibrillation Status: Chronic Assessment and Plan: * rate control strategy * already on anticoagulation (8) Anemia: Code(s): D64.9 - Anemia, unspecified Status: Chronic Assessment and Plan: * due to ESRD and acute illness * Epogen with HD * follow trend of H/H (9) HTN (hypertension): Code(s): I10 - Essential (primary) hypertension Status: Chronic Assessment and Plan: * well controlled * follow trend of hemodynamics (10) DM2 (diabetes mellitus, type 2): Code(s): E11.9 - Type 2 diabetes mellitus without complications Status: Chronic Assessment and Plan: * follow accu-cheks * glycemic control per hospitalists Will continue to follow. Subjective Date/time seen: 09/19/23 10:00 Interval history: Follow-up for end stage renal disease on hemodialysis. Tolerating dialysis treatment at the time of my visit (seen on HD at 9:50PAM); still remains confused currently but in no apparent distress; respiratory status seems stable; no issues/events overnight or earlier this morning. Exam Narrative: General: chronically ill appearing male in NAD Heart: normal S1 and S2; no rub Lungs: clear bilaterally Abdomen: soft, nontender, mildly distended, hypoactive bowel sounds Extremities: no cyanosis or clubbing; s/p right AKA Skin: left foot dressing in place Objective Data Vital Signs Vital Signs: Vital Signs Temp Pulse Resp BP Pulse Ox O2 Del Method O2 Flow Rate 09/19/23 08:43 97.5 F L 113 H 16 108/75 09/19/23 08:43 0
--- NOTE | 2023-09-19 10:43 | PCPTNOTE ---
The patient treatment was not able to be completed at this time due to patient out of room in dialysis. Will plan to continue treatment per plan of care.
--- NOTE | 2023-09-19 11:18 | PCNFU ---
Nutrition Follow-Up Complete: Increased nutrient needs related to dialysis as evidenced by ESRD with hemodialysis Goal:PO intake 75% of meals. Pt is occassionally meeting goal, continue with same goal. Pt current nutrition is Diabetic consistent carb, Ensure compact BID. Nutrition recommendation: continue with current plan of care Last recorded weight is 80.5 kg. Bowel Motility: +BM 09/18 Labs Reviewed: Hgb:11.8, HCT:39, Alb:3.2, BUN:37, Cr:4.6, Glu:131 Meds Noted: eliquis, novolog, zofran, KCL Skin: multiple diabetic ulcers, friction to sacrum Additional Notes: Pt is on a diabetic consistent carb diet, intake varied from 25-75% of meals, Pt is dialysis during assessment. Encourage po intake of meals and supplements. Monitor intake, wt, labs. Follow up in 5 days.
[2023-09-19] MEDS: POTASSIUM CHLORIDE 20 MEQ PACKET (FOR LIQUID) 40 MEQ PO ×2 (13:05→17:29)
[2023-09-19] MEDS: APIXABAN 5 MG TABLET PO ×2 (13:06→20:27)
[2023-09-19] MEDS: METOPROLOL TARTRATE 12.5 MG TABLET PO ×2 (13:06→20:27)
[2023-09-19] MEDS: PRAMIPEXOLE 0.5 MG TABLET PO ×2 (13:06→20:27)
[2023-09-19] MEDS: CITALOPRAM HYDROBROMIDE 20 MG TABLET PO (13:06)
[2023-09-19] MEDS: ASPIRIN 81 MG ENTERIC TABLET PO (13:09)
[2023-09-19] MEDS: SENNA/DOCUSATE SODIUM TABLET 1 TAB PO ×2 (13:09→20:27)
[2023-09-19] MEDS: SEVELAMER CARBONATE 800 MG TABLET PO ×2 (13:10→17:29)
[2023-09-19] MEDS: PANTOPRAZOLE SODIUM IV 40 MG VIAL IV PUSH ×2 (13:10→20:28)
[2023-09-19 13:15] LABS: Glucose Point of Care 135 mg/dl (65-105)
[2023-09-19 16:45] LABS: Glucose Point of Care 160 mg/dl (65-105)
[2023-09-19] MEDS: VANCOMYCIN 1,000 MG/NS 250 ML 1,000 MG/250 ML BAG 250 MG IVPB (17:29)
--- NOTE | 2023-09-19 17:47 | PC.NURSE ---
Dr. Cleary notified that Neurosurgery did not accept the consult. He recommended the patient be transferred to a hospital with an infectious disease doctor where he can have more testing. Dr. Cleary notified of this.
[2023-09-19] MEDS: CEFEPIME 1 GM/NS 50 ML 1 GM/50 ML BAG IVPB (19:56)
[2023-09-19] MEDS: FINASTERIDE 5 MG TABLET PO (20:28)
[2023-09-19] MEDS: SODIUM CHLORIDE 0.9% INJ 10 ML (20:28)
[2023-09-19] MEDS: ATORVASTATIN 40 MG TABLET PO (20:28)
[2023-09-19] MEDS: ACETAMINOPHEN 500 MG TABLET PO (20:33)
[2023-09-19 22:02] LABS: Glucose Point of Care 113 mg/dl (65-105)
[2023-09-20 06:00] VITALS: BP 119/69; PULSE 87; RESP 16; TEMP 36.2; O2SAT 95
[2023-09-20 07:14] LABS: Basophils Absolute Auto 0.1 K/mm3 (0.0-0.1); Basophils Percent Auto 0.9 % (0.2-1.2); Eosinophils Absolute Auto 0.5 K/mm3 (0-0.3); Eosinophils Percent Auto 5.3 % (0-4.4); Hematocrit 38.4 % (42.0-52.0); Hemoglobin 11.2 g/dL (14.0-18.0); Immature Granulocyte Absolute 0.12 K/mm3 (0.00-0.031); Immature Granulocyte Percent A 1.3 % (0-0.5); Lymphocytes Absolute Auto 2.22 K/mm3 (0.9-3.2); Lymphocytes Percent Auto 24.2 % (18.3-44.2); Mean Corpuscular HGB Conc 29.2 g/dl (32-36); Mean Corpuscular Hemoglobin 32.1 pg (26-34); Monocytes Absolute Auto 0.9 K/mm3 (0.1-0.6); Monocytes Percent Auto 9.5 % (2.6-8.5); Neutrophils Absolute Auto 5.4 K/mm3 (1.3-6.7); Neutrophils Percent Auto 58.8 % (45.5-73.1); Platelet Count Result 282 k/mm3 (150-375); Red Blood Count 3.49 M/mm3 (4.6-6.20); Red Cell Distribution Width 17.5 % (11.5-14.5); White Blood Count 9.2 K/mm3 (4.5-10.0)
[2023-09-20 07:27] LABS: Alanine Aminotransferase 11 U/L (6-50); Albumin Level 3.3 g/dL (3.5-5.1); Alkaline Phosphatase 70 U/L (38-126); Anion Gap 10 mmol/L (8-16); Aspartate Amino Transferase 21 U/L (17-59); Bilirubin,Total 0.7 mg/dL (0.2-1.3); Blood Urea Nitrogen 22 mg/dL (9-20); Calcium 8.3 mg/dL (8.4-10.2); Carbon Dioxide 21 mmol/L (22-30); Chloride 108 mmol/L (98-107); Estimated CRCL calculation 21 ml/min; Estimated Glomerular Filt Rate 19; Glucose 96 mg/dL (65-110); Potassium 3.3 mmol/L (3.4-5.0); Sodium 139 mmol/L (137-145)
[2023-09-20 08:38] LABS: Glucose Point of Care 84 mg/dl (65-105)
[2023-09-20 08:49] VITALS: PULSE 107
[2023-09-20] MEDS: CITALOPRAM HYDROBROMIDE 20 MG TABLET PO (08:49)
[2023-09-20] MEDS: MIDODRINE HCL 10 MG TABLET 20 MG PO ×3 (08:49→17:06)
[2023-09-20] MEDS: POTASSIUM CHLORIDE 20 MEQ PACKET (FOR LIQUID) 40 MEQ PO ×2 (08:49→17:07)
[2023-09-20] MEDS: PRAMIPEXOLE 0.5 MG TABLET PO ×2 (08:49→20:46)
[2023-09-20] MEDS: SENNA/DOCUSATE SODIUM TABLET 1 TAB PO ×2 (08:49→20:46)
[2023-09-20] MEDS: METOPROLOL TARTRATE 12.5 MG TABLET PO ×2 (08:49→20:46)
[2023-09-20] MEDS: APIXABAN 5 MG TABLET PO ×2 (08:49→20:46)
[2023-09-20] MEDS: SEVELAMER CARBONATE 800 MG TABLET PO ×3 (08:49→17:07)
[2023-09-20] MEDS: ASPIRIN 81 MG ENTERIC TABLET PO (08:49)
[2023-09-20] MEDS: PANTOPRAZOLE SODIUM IV 40 MG VIAL IV PUSH ×2 (08:52→20:54)
--- NOTE | 2023-09-20 09:04 | PM.IMPN ---
Progress Note: A&P Assessment and Plan (1) Pneumonia: Code(s): J18.9 - Pneumonia, unspecified organism Status: Acute Assessment and Plan: Continue vancomycin and Zosyn (2) Encephalopathy: Code(s): G93.40 - Encephalopathy, unspecified Status: Acute Assessment and Plan: Likely due to acute infection and end-stage renal disease (3) DM2 (diabetes mellitus, type 2): Code(s): E11.9 - Type 2 diabetes mellitus without complications Status: Chronic Assessment and Plan: 09/17/2023 blood sugar control adequate (4) Ileus: Code(s): K56.7 - Ileus, unspecified Status: Acute Assessment and Plan: Likely due to acute infection Clinically resolving (5) Discitis of lumbar region: Code(s): M46.46 - Discitis, unspecified, lumbar region Status: Acute Assessment and Plan: on vancomycin started on 09/21 and zosyn on 09/14- change to cefepime 09/19 Blood culture May 27 grew Staphylococcus aureus, susceptible to vancomycin Blood cultures on 06/01 09/08 and 09/15 have been negative MRI of t-spine 1. Mild thoracic spondylosis. No evident osteomyelitis or other pathologic marrow replacing process. 2. Nonspecific lung disease in the bilateral lower lobes, most likely atelectasis and/or pneumonia with small right pleural effusion. LS spine reports 1. L2-L3 discitis with osteolysis involving significant portions of the L2 and L3 vertebral bodies. No evident paraspinal or epidural abscess. 2. Severe lumbar spondylosis Consult neurosurgeon for evaluation and management (6) ESRD (end stage renal disease) on dialysis: Code(s): N18.6 - End stage renal disease; Z99.2 - Dependence on renal dialysis Status: Acute Assessment and Plan: Continue dialysis Tuesday (7) Ulcer of left foot: Code(s): L97.529 - Non-pressure chronic ulcer of other part of left foot with unspecified severity Status: Acute Assessment and Plan: stage II sacral to be good ulcer Continue dressing changes per wound care (8) CAD (coronary artery disease): Code(s): I25.10 - Atherosclerotic heart disease of [place] coronary artery without angina pectoris Status: Acute Assessment and Plan: Without anginal symptoms at present (9) Atrial fibrillation: Code(s): I48.91 - Unspecified atrial fibrillation Status: Chronic Assessment and Plan: Continue long-term anticoagulation Eliquis 5 mg q.12 hours p.o. metoprolol 12.5 mg b.i.d. p.o., the Subjective Date/time seen: 09/20/23 09:04 Interval history: I saw and examined patient today. Patient still has back pain, patient denies chest pain, shortness of breath, Patient is afebrile over the night. Patient also denies abdomen pain, nausea vomiting diarrhea Exam Narrative: No obvious distress, Sclerae nonicteric. Pupils equal and reactive. Oral mucosa pink and moist. PERRLA Neck without JVD. Chest with slightly coarse breath sounds and normal effort. Heart with normal S1 and S2, regular rate, soft 2/6 systolic ejection murmur right upper sternal border. Extremities without edema. Right above knee amputation Abdomen protuberant but soft with bowel sounds present, nontender, no palpable mass or organomegaly. Skin: Sacral stage II decubitus ulcer Musculoskeletal right AKA otherwise no significant deformities. Low back tenderness Neurologic cranial nerves intact to inspection. Tone and strength symmetric both upper extremities intact in left lower extremity as well. Psychiatric alert. Oriented to person only. But pleasant and cooperative. Objective Data Vital Signs Vital Signs: Vital Signs - 24 hr 09/19/23 09:20 09/19/23 09:40 09/19/23 10:00 Temperature Pulse Rate 104 H 129 H 81 Respiratory Rate Blood Pressure 100/60 107/70 92/43 L Pulse Oximetry Oxygen Delivery 09/19/23 10:20 09/19/23 10:40 09/19/23
--- NOTE | 2023-09-20 10:55 | P.PNNP_ITS ---
Progress Note: A&P Assessment and Plan (1) End stage renal disease: Code(s): N18.6 - End stage renal disease Status: Chronic Assessment and Plan: * HD tomorrow * continue M// outpatient dialysis schedule * outpatient dialysis done at [facility] under the care of Dr. Wesley Santiago * follow electrolytes, volume status, and clearance (2) Altered mental status: Code(s): R41.82 - Altered mental status, unspecified Status: Acute Assessment and Plan: * still confused (and continues to fluctuate) * thought to be secondary to infection (pneumonia +/- left foot wounds +/- decubitus ulcer) * blood cultures are negative * on antibiotics * CT of head shows nothing acute * continue supportive therapy (3) Hypokalemia: Code(s): E87.6 - Hypokalemia Status: Acute Assessment and Plan: * suspect due to poor oral intake * on a regular diet * getting potassium supplements * adjust dialysis to compensate as well * follow trend (4) Ileus: Code(s): K56.7 - Ileus, unspecified Status: Acute Assessment and Plan: * better if not resolved * as noted by previous imaging * advance diet as tolerated * Surgery signed off (5) Discitis of lumbar region: Code(s): M46.46 - Discitis, unspecified, lumbar region Status: Acute Assessment and Plan: * on antibiotics * lumbar MRI results notef * further intervention?? (6) Pneumonia: Code(s): J18.9 - Pneumonia, unspecified organism Status: Acute Assessment and Plan: * suspect based on imaging on admission * on antibiotics * respiratory status stable (7) Atrial fibrillation: Code(s): I48.91 - Unspecified atrial fibrillation Status: Chronic Assessment and Plan: * rate control strategy * already on anticoagulation (8) Anemia: Code(s): D64.9 - Anemia, unspecified Status: Chronic Assessment and Plan: * due to ESRD and acute illness * Epogen with HD * follow trend of H/H (9) HTN (hypertension): Code(s): I10 - Essential (primary) hypertension Status: Chronic Assessment and Plan: * well controlled * follow trend of hemodynamics (10) DM2 (diabetes mellitus, type 2): Code(s): E11.9 - Type 2 diabetes mellitus without complications Status: Chronic Assessment and Plan: * follow accu-cheks * glycemic control per hospitalists Will continue to follow. Subjective Date/time seen: 09/20/23 10:24 Interval history: Follow-up for end stage renal disease on hemodialysis. Tolerated dialysis treatment yesterday without any issues or problems; no acute distress but still with on/off confusion at the time of my visit; no issues/events overnight or earlier this morning. Exam Narrative: General: chronically ill appearing male in NAD Heart: normal S1 and S2; no rub Lungs: clear bilaterally Abdomen: soft, nontender, hypoactive bowel sounds Extremities: no cyanosis or clubbing; s/p right AKA Skin: left foot dressing present Objective Data Vital Signs Vital Signs: Vital Signs Temp Pulse Resp BP Pulse Ox O2 Del Method 09/20/23 08:49 107 H 09/20/23 06:00 97.2 F L 87 16 119/69 95 09/19/23 20:00 95 Room Air
--- NOTE | 2023-09-20 10:55 | PM.PNNEP ---
Progress Note: A&P Assessment and Plan (1) End stage renal disease: Code(s): N18.6 - End stage renal disease Status: Chronic Assessment and Plan: HD tomorrow continue M/W/ outpatient dialysis schedule outpatient dialysis done at [facility] under the care of Dr. Wesley Santiago follow electrolytes, volume status, and clearance (2) Altered mental status: Code(s): R41.82 - Altered mental status, unspecified Status: Acute Assessment and Plan: still confused (and continues to fluctuate) thought to be secondary to infection (pneumonia +/- left foot wounds +/- decubitus ulcer) blood cultures are negative on antibiotics CT of head shows nothing acute continue supportive therapy (3) Hypokalemia: Code(s): E87.6 - Hypokalemia Status: Acute Assessment and Plan: suspect due to poor oral intake on a regular diet getting potassium supplements adjust dialysis to compensate as well follow trend (4) Ileus: Code(s): K56.7 - Ileus, unspecified Status: Acute Assessment and Plan: better if not resolved as noted by previous imaging advance diet as tolerated Surgery signed off (5) Discitis of lumbar region: Code(s): M46.46 - Discitis, unspecified, lumbar region Status: Acute Assessment and Plan: on antibiotics lumbar MRI results notef further intervention?? (6) Pneumonia: Code(s): J18.9 - Pneumonia, unspecified organism Status: Acute Assessment and Plan: suspect based on imaging on admission on antibiotics respiratory status stable (7) Atrial fibrillation: Code(s): I48.91 - Unspecified atrial fibrillation Status: Chronic Assessment and Plan: rate control strategy already on anticoagulation (8) Anemia: Code(s): D64.9 - Anemia, unspecified Status: Chronic Assessment and Plan: due to ESRD and acute illness Epogen with HD follow trend of H/H (9) HTN (hypertension): Code(s): I10 - Essential (primary) hypertension Status: Chronic Assessment and Plan: well controlled follow trend of hemodynamics (10) DM2 (diabetes mellitus, type 2): Code(s): E11.9 - Type 2 diabetes mellitus without complications Status: Chronic Assessment and Plan: follow accu-cheks glycemic control per hospitalists Will continue to follow. Subjective Date/time seen: 09/20/23 10:24 Interval history: Follow-up for end stage renal disease on hemodialysis. Tolerated dialysis treatment yesterday without any issues or problems; no acute distress but still with on/off confusion at the time of my visit; no issues/events overnight or earlier this morning. Exam Narrative: General: chronically ill appearing male in NAD Heart: normal S1 and S2; no rub Lungs: clear bilaterally Abdomen: soft, nontender, hypoactive bowel sounds Extremities: no cyanosis or clubbing; s/p right AKA Skin: left foot dressing present Objective Data Vital Signs Vital Signs: Vital Signs Temp Pulse Resp BP Pulse Ox O2 Del Method 09/20/23 08:49 107 H 09/20/23 06:00 97.2 F L 87 16 119/69 95 09/19/23 20:00 95 Room Air 09/19/23 22:00 98.1 F 84 16 114/62 97 09/19/23 20:27 55 L 09/19/23 18:33 101 H 09/19/23 14:00 96.8 F L 51 L 20 111/58 L 98 09/19/23 13:15 Room Air 09/19/23 12:56 98.1 F 130 H 16 124/76 09/19/23 12:24 135 H 115/68 09/19/23 13:06 110 H 09/19/23 12:00 135 H 119/74 09/19/23 11:40 135 H 114/74 Intake/Output Intake/Output: Intake & Output 09/18/23 09/18/23 09/19/23 09/20/23 00:59 23:59 23:59 23:59 Intake Total 636 100 Output Total 1000 Balance -364 100 Meds/Results Medications: Active Medications Generic Name Dose Route Start Last Admin Trade Name Freq PRN Reason Stop Dose Admin
[2023-09-20 11:46] LABS: Glucose Point of Care 105 mg/dl (65-105)
--- NOTE | 2023-09-20 11:47 | PM.PNCARD ---
Progress Note: A&P Assessment and Plan (1) Discitis of lumbar region: Code(s): M46.46 - Discitis, unspecified, lumbar region Status: Acute Assessment and Plan: MRI showing L2-L3 discitis. Neurosurgery consulted. We are consulted for consideration of CHERYL. His transthoracic echocardiogram did not show obvious vegetation although it was a difficult study. However, his blood cultures are negative. Also, patient does not meet criteria for infective endocarditis based on Healy criteria. As blood cultures are negative and patient does not meet Healy criteria for IE, CHERYL not indicated at this time. Cardiology will sign off at this time. Please call us back if needed. (2) Anticoagulant long-term use: Code(s): Z79.01 - long term care pharmacist (current) use of anticoagulants Status: Acute Assessment and Plan: Continue Eliquis (3) ESRD (end stage renal disease) on dialysis: Code(s): N18.6 - End stage renal disease; Z99.2 - Dependence on renal dialysis Status: Acute Assessment and Plan: On dialysis (4) Atrial fibrillation: Code(s): I48.91 - Unspecified atrial fibrillation Status: Chronic Assessment and Plan: Continue Metoprolol and Eliquis (5) CAD (coronary artery disease): Code(s): I25.10 - Atherosclerotic heart disease of [place] coronary artery without angina pectoris Status: Acute Assessment and Plan: Continue ASA and statin Subjective Date/time seen: 09/20/23 11:47 Interval history: Reason for consult: Consideration of CHERYL HPI: 73-year-old male with a multitude of health problems including coronary disease status post revascularization, PAF, end-stage renal disease, status post renal transplant, status post right AKA, chronic decubitus ulcers, of lower extremity foot wounds who presented to the hospital because of altered mental status.? He also has generalized weakness.? Patient's states he has been increasingly more difficult to take care of the home.? Patient himself does answer questions but is confused and obviously somewhat delirious.? The process of having an initial workup though was noted to be issues at L2 and L3 and concern for diskitis/osteomyelitis.? Cardiology consultation is therefore requested for consideration of a CHERYL.? Patient denies any chest pain, shortness of breath.? No syncope or presyncope.? Patient was found have an ileus had an NG in place is currently on broad-spectrum antibiotics. Date of service 09/17: Still confused.? No chest pain. Date of service 09/20: Feels okay. No cardiac complaints. Review of Systems Review of Systems: No chest pain, palpitations, shortness of breath Exam Const: General: no acute distress Eyes: General: appearance normal, both eyes and all related structures Sclera: sclerae normal Resp: Effort & Inspection: normal respiratory effort Cardio: Rhythm: abnormal rhythm irregularly irregular Neuro: Speech: normal speech Psych: Mental Status: mental status grossly normal Affect: normal affect Objective Data Vital Signs Vital Signs: Vital Signs - 24 hr 09/19/23 12:00 09/19/23 13:06 09/19/23 12:24 Temperature Pulse Rate 135 H 110 H 135 H Respiratory Rate Blood Pressure 119/74 115/68 Pulse Oximetry Oxygen Delivery 09/19/23 12:56 09/19/23 13:15 09/19/23 14:00 Temperature 36.7 C 36.0 C L Pulse Rate 130 H 51 L Respiratory Rate 16 20 Blood Pressure 124/76 111/58 L Pulse Oximetry 98 Oxygen Delivery Room Air 09/19/23 18:33 09/19/23 20:27 09/19/23 22:00 Temperature 36.7 C Pulse Rate 101 H 55 L 84 Respiratory Rate 16 Blood Pressure 114/62 Pulse Oximetry 97 Oxygen Delivery 09/19/23 20:00 09/20/23 06:00 09/20/23 08:49 Temperature 36.2 C L Pulse Rate 87 107 H Respiratory Rate 16 Blood Pressure 119/69 Pulse Oximetry 95 95 Oxygen Delivery Room Air Intake/Output Intake/Output: Intake & Output 09/18/23 1
[2023-09-20 14:00] VITALS: BP 124/83; PULSE 99; RESP 18; TEMP 36.4; O2SAT 100
[2023-09-20 16:52] LABS: Glucose Point of Care 132 mg/dl (65-105)
[2023-09-20] MEDS: SODIUM CHLORIDE 0.9% IV 1,000 ML 50 ML IV CONT (17:06)
[2023-09-20] MEDS: CEFEPIME 1 GM/NS 50 ML 1 GM/50 ML BAG IVPB (17:07)
--- NOTE | 2023-09-20 17:40 | WPDNEUROSGCN ---
Assessment and Plan Assessment and plan (1) Discitis of lumbar region: Code(s): M46.46 - Discitis, unspecified, lumbar region Status: Acute Plan Mr. Sanchez is a 73-year-old gentleman with back pain perhaps related to an L2-3 diskitis. This seems to have progressed radiographically since his last imaging in May. It is impossible to know whether a diskitis exists without biopsying the interspace. This could also be useful to drain fluid from the disc space to aid in treatment. It could also narrow down the pathogen although he has had positive blood cultures and an infection which has gone on for some time. Therefore, this is probably the same pathogen that he has been dealing with all along. There is no clear indication for surgery with regards to the diskitis. The stenosis at L3-4 could be operated on but since he is not ambulatory it is probably not useful to do so. Consult date: 09/20/23 Reason for consult: Back pain, possible diskitis HPI: Erma Sanchez is a 73 year old male with a history of bacteremia and infections involving multiple areas of his body. Most specifically this has involved the right knee. He has had a below hip anti taken because of this infection and inability to control it. He has not been able to return home in several months and has been in a snf facility prior to the current admission. He is admitted with the same problems but has a specific pain in his low back. Recent imaging demonstrates fluid within the disc space and the facet joints bilaterally at the L2-3 level. He also has severe stenosis at L3-4 below this. However, he is now nonambulatory because of the amputation of his right leg. He does not report specific issues in his left lower extremity. He does not have new bowel or bladder difficulties. It is regarding this radiographic abnormality that I am consulted. Review of Systems Review of Systems: Patient denies shortness of breath, cough, nausea, vomiting, weight loss, weight gain. He has back pain as described above. He has had a recent amputation of his right leg. His review of systems is otherwise negative. This is on 12 systems. [facility] Past Medical History Medical History Atrial fibrillation AV fistula 3 attempts BPH (benign prostatic hyperplasia) Depression with anxiety DM2 (diabetes mellitus, type 2) ESRD (end stage renal disease) on dialysis HLD (hyperlipidemia) HTN (hypertension) Obstructive sleep apnea Seizure disorder Surgical History Surgical History H/O carpal tunnel repair H/O cataract extraction H/O cystoscopy H/O eye surgery H/O four vessel coronary artery bypass graft H/O heart artery stent X3 H/O shoulder surgery Left shoulder History of back surgery X3 History of bladder surgery History of parathyroid surgery Hx of nephrostomy Many years ago S/P cubital tunnel release Family History Family History Father No problems noted. Sibling Hypertension Cancer Grandparent Hypertension Diabetes mellitus Mother Ovarian cancer Sibling Cancer Social History Social History Social History: The patient has 5 children in the last child has Down syndrome. That child lives with him and his . 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 Code status full code Smoking status: Never smoker Alcohol intake: never Substance use: never Lack of Transportation: No Lack of Food: Sometimes True Current Housing: I Have Housing Concerned About Future Housing: No Difficulty Paying Gas/Electric Bills: YES Difficulty Paying for Meds: YES Currently Unemployed: No Edu
[2023-09-20 20:39] LABS: Glucose Point of Care 151 mg/dl (65-105)
[2023-09-20] MEDS: ACETAMINOPHEN 500 MG TABLET PO (20:45)
[2023-09-20] MEDS: FINASTERIDE 5 MG TABLET PO (20:46)
[2023-09-20] MEDS: ATORVASTATIN 40 MG TABLET PO (20:46)
[2023-09-20 21:36] VITALS: BP 126/65; PULSE 93; RESP 13; TEMP 36.4; O2SAT 95
[2023-09-21] VITALS (21 sets, daily range): BP systolic 96–136; BP diastolic 44–87; PULSE 76–135; RESP 14–18; TEMP 36.1–37; O2SAT 94–98
[2023-09-21 05:52] LABS: Vancomycin Random 14.4 ug/mL (10-20)
[2023-09-21 06:33] LABS: Anion Gap 7 mmol/L (8-16); Blood Urea Nitrogen 26 mg/dL (9-20); Calcium 6.9 mg/dL (8.4-10.2); Carbon Dioxide 17 mmol/L (22-30); Chloride 114 mmol/L (98-107); Estimated CRCL calculation 20 ml/min; Estimated Glomerular Filt Rate 18; Glucose 102 mg/dL (65-110); Potassium 2.3 mmol/L (3.4-5.0); Sodium 138 mmol/L (137-145)
[2023-09-21 08:07] LABS: Glucose Point of Care 101 mg/dl (65-105)
--- NOTE | 2023-09-21 09:28 | PM.IMPN ---
Progress Note: A&P Assessment and Plan (1) Pneumonia: Code(s): J18.9 - Pneumonia, unspecified organism Status: Acute Assessment and Plan: Continue vancomycin and Zosyn (2) Encephalopathy: Code(s): G93.40 - Encephalopathy, unspecified Status: Acute Assessment and Plan: Likely due to acute infection and end-stage renal disease (3) DM2 (diabetes mellitus, type 2): Code(s): E11.9 - Type 2 diabetes mellitus without complications Status: Chronic Assessment and Plan: 09/17/2023 blood sugar control adequate (4) Ileus: Code(s): K56.7 - Ileus, unspecified Status: Acute Assessment and Plan: Likely due to acute infection Clinically resolving (5) Discitis of lumbar region: Code(s): M46.46 - Discitis, unspecified, lumbar region Status: Acute Assessment and Plan: on vancomycin started on 09/21 and zosyn on 09/14- change to cefepime 09/19 Blood culture May 27 grew Staphylococcus aureus, susceptible to vancomycin Blood cultures on 06/01 09/08 and 09/15 have been negative MRI of t-spine 1. Mild thoracic spondylosis. No evident osteomyelitis or other pathologic marrow replacing process. 2. Nonspecific lung disease in the bilateral lower lobes, most likely atelectasis and/or pneumonia with small right pleural effusion. LS spine reports 1. L2-L3 discitis with osteolysis involving significant portions of the L2 and L3 vertebral bodies. No evident paraspinal or epidural abscess. 2. Severe lumbar spondylosis Consult neurosurgeon for evaluation and management Appreciate neurosurgeon consultation, neurosurgeon considers it is impossible to know whether a diskitis exists without biopsying the interspace. Neurosurgeon also considers there is no clear indication for surgery with regards to the diskitis.? The stenosis at L3-4 could be operated on but since he is not ambulatory it is probably not useful to do so. (6) ESRD (end stage renal disease) on dialysis: Code(s): N18.6 - End stage renal disease; Z99.2 - Dependence on renal dialysis Status: Acute Assessment and Plan: Continue dialysis Tuesday (7) Ulcer of left foot: Code(s): L97.529 - Non-pressure chronic ulcer of other part of left foot with unspecified severity Status: Acute Assessment and Plan: stage II sacral to be good ulcer Continue dressing changes per wound care (8) CAD (coronary artery disease): Code(s): I25.10 - Atherosclerotic heart disease of [place] coronary artery without angina pectoris Status: Acute Assessment and Plan: Without anginal symptoms at present (9) Atrial fibrillation: Code(s): I48.91 - Unspecified atrial fibrillation Status: Chronic Assessment and Plan: Continue long-term anticoagulation Eliquis 5 mg q.12 hours p.o. metoprolol 12.5 mg b.i.d. p.o., the Subjective Date/time seen: 09/21/23 09:28 Interval history: Patient has no no issues/events overnight to report. Still has back pain worse with movement, tolerable on medication. Patient has no chest pain, shortness of breath. Potassium 2.3 a.m., repleted with potassium chloride p.o. and IV, patient dialysis Exam Narrative: No obvious distress, Sclerae nonicteric. Pupils equal and reactive. Oral mucosa pink and moist. PERRLA Neck without JVD. Chest with slightly coarse breath sounds and normal effort. Heart with normal S1 and S2, regular rate, soft 2/6 systolic ejection murmur right upper sternal border. Extremities without edema. Right above knee amputation Abdomen protuberant but soft with bowel sounds present, nontender, no palpable mass or organomegaly. Skin: Sacral stage II decubitus ulcer Musculoskeletal right AKA otherwise no significant deformities. Low back tenderness Neurologic cranial nerves intact to inspection. Tone and strength symmetric both upper extremities intact in left lower ext
--- NOTE | 2023-09-21 09:30 | PCPTNOTE ---
The patient treatment was not able to be completed due to patient out of room for dialysis. Will plan to continue treatment per plan of care.
--- NOTE | 2023-09-21 09:55 | P.PNNP_ITS ---
Progress Note: A&P Assessment and Plan (1) End stage renal disease: Code(s): N18.6 - End stage renal disease Status: Chronic Assessment and Plan: * HD today * continue M// outpatient dialysis schedule * outpatient dialysis done at [facility] under the care of Dr. Wesley Santiago * follow electrolytes, volume status, and clearance (2) Altered mental status: Code(s): R41.82 - Altered mental status, unspecified Status: Acute Assessment and Plan: * still confused (and continues to fluctuate) * thought to be secondary to infection (pneumonia +/- left foot wounds +/- decubitus ulcer) * blood cultures are negative * on antibiotics * CT of head shows nothing acute * continue supportive therapy (3) Hypokalemia: Code(s): E87.6 - Hypokalemia Status: Acute Assessment and Plan: * suspect due to poor oral intake * on a regular diet * getting potassium supplements * adjust dialysis to compensate as well * follow trend (4) Discitis of lumbar region: Code(s): M46.46 - Discitis, unspecified, lumbar region Status: Acute Assessment and Plan: * on antibiotics * lumbar MRI results noted * Neurosurgery recommendations reviewed (5) Pneumonia: Code(s): J18.9 - Pneumonia, unspecified organism Status: Acute Assessment and Plan: * suspect based on imaging on admission * on antibiotics (has likely completed treatment for this) * respiratory status stable (6) Atrial fibrillation: Code(s): I48.91 - Unspecified atrial fibrillation Status: Chronic Assessment and Plan: * rate control strategy * already on anticoagulation (7) Anemia: Code(s): D64.9 - Anemia, unspecified Status: Chronic Assessment and Plan: * due to ESRD and acute illness * Epogen with HD * follow trend of H/H (8) HTN (hypertension): Code(s): I10 - Essential (primary) hypertension Status: Chronic Assessment and Plan: * well controlled * follow trend of hemodynamics (9) DM2 (diabetes mellitus, type 2): Code(s): E11.9 - Type 2 diabetes mellitus without complications Status: Chronic Assessment and Plan: * follow accu-cheks * glycemic control per hospitalists Will continue to follow. Subjective Date/time seen: 09/21/23 09:55 Interval history: Follow-up for end stage renal disease on hemodialysis. Tolerating dialysis treatment at the time of my visit (seen on HD at 9:45AM); K+ extremely low this AM so given IV replacement and already on oral supplementation with adjustments in dialysis done to compensate as well; no apparent distress but continues to remain confused; no issues/events overnight to report. Exam Narrative: General: somewhat chronically ill appearing male in NAD Heart: normal S1 and S2; no rub Lungs: clear bilaterally Abdomen: soft, nontender, hypoactive bowel sounds Extremities: no cyanosis or clubbing; s/p right AKA Skin: left foot dressing present Objective Data Vital Signs Vital Signs: Vital Signs Temp Pulse Resp BP Pulse Ox O2 Del Method 09/21/23 09:45 103 H 115/63 09/21/23 09:30 98 129/52 L 09/21/23 09:15 100 115/69 09/21/23 09:00 98 130/64 09/21/23 08:49 93 118/65
--- NOTE | 2023-09-21 09:55 | PM.PNNEP ---
Progress Note: A&P Assessment and Plan (1) End stage renal disease: Code(s): N18.6 - End stage renal disease Status: Chronic Assessment and Plan: HD today continue M/W/F outpatient dialysis schedule outpatient dialysis done at [facility] under the care of Dr. Wesley Santiago follow electrolytes, volume status, and clearance (2) Altered mental status: Code(s): R41.82 - Altered mental status, unspecified Status: Acute Assessment and Plan: still confused (and continues to fluctuate) thought to be secondary to infection (pneumonia +/- left foot wounds +/- decubitus ulcer) blood cultures are negative on antibiotics CT of head shows nothing acute continue supportive therapy (3) Hypokalemia: Code(s): E87.6 - Hypokalemia Status: Acute Assessment and Plan: suspect due to poor oral intake on a regular diet getting potassium supplements adjust dialysis to compensate as well follow trend (4) Discitis of lumbar region: Code(s): M46.46 - Discitis, unspecified, lumbar region Status: Acute Assessment and Plan: on antibiotics lumbar MRI results noted Neurosurgery recommendations reviewed (5) Pneumonia: Code(s): J18.9 - Pneumonia, unspecified organism Status: Acute Assessment and Plan: suspect based on imaging on admission on antibiotics (has likely completed treatment for this) respiratory status stable (6) Atrial fibrillation: Code(s): I48.91 - Unspecified atrial fibrillation Status: Chronic Assessment and Plan: rate control strategy already on anticoagulation (7) Anemia: Code(s): D64.9 - Anemia, unspecified Status: Chronic Assessment and Plan: due to ESRD and acute illness Epogen with HD follow trend of H/H (8) HTN (hypertension): Code(s): I10 - Essential (primary) hypertension Status: Chronic Assessment and Plan: well controlled follow trend of hemodynamics (9) DM2 (diabetes mellitus, type 2): Code(s): E11.9 - Type 2 diabetes mellitus without complications Status: Chronic Assessment and Plan: follow accu-cheks glycemic control per hospitalists Will continue to follow. Subjective Date/time seen: 09/21/23 09:55 Interval history: Follow-up for end stage renal disease on hemodialysis. Tolerating dialysis treatment at the time of my visit (seen on HD at 9:45AM); K+ extremely low this AM so given IV replacement and already on oral supplementation with adjustments in dialysis done to compensate as well; no apparent distress but continues to remain confused; no issues/events overnight to report. Exam Narrative: General: somewhat chronically ill appearing male in NAD Heart: normal S1 and S2; no rub Lungs: clear bilaterally Abdomen: soft, nontender, hypoactive bowel sounds Extremities: no cyanosis or clubbing; s/p right AKA Skin: left foot dressing present Objective Data Vital Signs Vital Signs: Vital Signs Temp Pulse Resp BP Pulse Ox O2 Del Method 09/21/23 09:45 103 H 115/63 09/21/23 09:30 98 129/52 L 09/21/23 09:15 100 115/69 09/21/23 09:00 98 130/64 09/21/23 08:49 93 118/65 09/21/23 08:40 97.6 F 97 18 131/68 09/21/23 05:50 96.9 F L 99 14 125/70 94 09/20/23 21:36 97.5 F L 93 13 126/65 95 09/20/23 19:31 Room Air 09/20/23 14:00 97.6 F 99 18 124/83 100 Intake/Output Intake/Output: Intake & Output 09/18/23 09/19/23 09/20/23 09/21/23 23:59 23:59 23:59 23:59 Intake Total 1686 270 500 Output Total 1000 Balance 686 270 500 Meds/Results Medications: Active Medications Generic Name Dose Route Start Last Admin Trade Name Freq PRN Reason Stop Dose Admin Acetaminophen 500 mg 09/09/23 01:19 09/20/23 20:45 Acetaminophen 500 Mg Tablet PO 500 mg Q6H PRN Administrat
[2023-09-21 13:15] LABS: Glucose Point of Care 76 mg/dl (65-105)
[2023-09-21] MEDS: POTASSIUM CHLORIDE INJ 40 MEQ in SODIUM CHLORIDE 0.9% IV 500 ML 130 MEQ IVPB (13:37)
[2023-09-21] MEDS: MIDODRINE HCL 10 MG TABLET 20 MG PO ×2 (13:39→16:54)
[2023-09-21] MEDS: SEVELAMER CARBONATE 800 MG TABLET PO ×2 (13:40→16:54)
--- NOTE | 2023-09-21 15:04 | WPDNEUROPN ---
Subjective Date/time seen: 09/21/23 15:04 Interval history: 73 years old initially evaluated for the change in the mental status when he condition also he had the history of atrial fibrillation with end-stage renal disease and is on dialysis in addition carries a diagnosis of sleep apnea and seizure disorder, evaluation during hospitalization included the MRI of the a spine including lumbar area which showed L2-3 diskitis with osteolysis involving significant portion of the L2 and L3 vertebral bodies but no evidence of paraspinal or epidural abscess though there was significant lumbar spondylosis, neurosurgical consultation was obtained there has been some progression in the diskitis radiologically consideration says drainage of the fluid the further classify the infection but there was no clear indication for surgery and the surgical intervention for the stenosis at L3-4 was not recommended because of the nonambulatory status patient is on apixaban 5mg q.12 hours, aspirin 81mg daily, atorvastatin 40mg at night, Mirapex 0.5mg q.12 hours, midodrine 20mg 3 times a day for the orthostatic symptomatology in addition to insulin therapy and cefepime and vancomycin antibiotics. Patient remains awake alert very verbal and communicative understand the situation fairly well and daughter in happened to be in the room all the pros and cons of these neurosurgical opinion were also discussed with them he will definitely benefit from the continuation of the medication and ongoing physical therapy Objective Data Vital Signs Vital Signs: Vital Signs - 24 hr 09/20/23 19:31 09/20/23 21:36 09/21/23 05:50 Temperature 36.4 C L 36.1 C L Pulse Rate 93 99 Respiratory Rate 13 14 Blood Pressure 126/65 125/70 Pulse Oximetry 95 94 Oxygen Delivery Room Air 09/21/23 08:40 09/21/23 08:49 09/21/23 09:00 Temperature 36.4 C Pulse Rate 97 93 98 Respiratory Rate 18 Blood Pressure 131/68 118/65 130/64 Pulse Oximetry Oxygen Delivery 09/21/23 09:15 09/21/23 09:30 09/21/23 09:45 Temperature Pulse Rate 100 98 103 H Respiratory Rate Blood Pressure 115/69 129/52 L 115/63 Pulse Oximetry Oxygen Delivery 09/21/23 10:00 09/21/23 10:15 09/21/23 10:30 Temperature Pulse Rate 103 H 111 H 76 Respiratory Rate Blood Pressure 109/56 L 104/56 L 108/57 L Pulse Oximetry Oxygen Delivery 09/21/23 10:45 09/21/23 11:00 09/21/23 12:57 Temperature 36.4 C L Pulse Rate 112 H 133 H 130 H Respiratory Rate 18 Blood Pressure 120/62 115/69 96/44 L Pulse Oximetry Oxygen Delivery 09/21/23 11:15 09/21/23 11:30 09/21/23 11:45 Temperature Pulse Rate 135 H 122 H 133 H Respiratory Rate Blood Pressure 115/67 105/53 L 97/50 L Pulse Oximetry Oxygen Delivery 09/21/23 12:00 09/21/23 12:15 09/21/23 12:22 Temperature Pulse Rate 133 H 133 H 123 H Respiratory Rate Blood Pressure 122/76 102/63 127/67 Pulse Oximetry Oxygen Delivery 09/21/23 14:00 Temperature 36.7 C Pulse Rate 112 H Respiratory Rate 18 Blood Pressure 111/63 Pulse Oximetry 98 Oxygen Delivery Intake/Output Intake/Output: Intake & Output 09/18/23 09/19/23 09/20/23 09/21/23 23:59 23:59 23:59 23:59 Intake Total 1686 270 500 Output Total 1000 500 Balance 686 270 0 Meds/Results Medications: Active Medications Generic Name Dose Route Start Last Admin Trade Name Freq PRN Reason Stop Dose Admin Acetaminophen 500 mg 09/09/23 01:19 09/20/23 20:45 Acetaminophen 500 Mg Tablet PO 500 mg Q6H PRN Administration Pain 1-6 Apixaban 5 mg 09/09/23 09:00 09/21/23 13:19 Apixaban 5 Mg Tablet PO Not Given Q12HR AURELIO Aspirin 81 mg 09/09/23 09:00 09/21/23 13:19 Aspirin 81 Mg Enteric Tablet PO 10/09/23 08:59 Not Given DAILY AURELIO Atorvastatin Calcium 40 mg 09/09/23 21:00 09/20/23 20:46 Atorvastatin 40 Mg Tablet PO 40 mg HS AURELIO Administration Citalopram Hydrobromide 20 mg
[2023-09-21] MEDS: POTASSIUM CHLORIDE 20 MEQ PACKET (FOR LIQUID) 40 MEQ PO (16:56)
[2023-09-21 17:02] LABS: Glucose Point of Care 114 mg/dl (65-105)
[2023-09-21] MEDS: ACETAMINOPHEN 500 MG TABLET PO (17:05)
[2023-09-21] MEDS: CEFEPIME 1 GM/NS 50 ML 1 GM/50 ML BAG IVPB (18:04)
--- NOTE | 2023-09-21 18:28 | WPDNEUROSGPN ---
Progress Note: A&P Assessment and Plan (1) Discitis of lumbar region: Code(s): M46.46 - Discitis, unspecified, lumbar region Status: Acute Assessment and Plan: Erma is a 73-year-old gentleman with an L2-3 diskitis which has progressed despite antibiotic treatment and aggressive management. His treatment has been scattered as he is presented to many hospitals and had treatment in several. I am concerned about her ability to treat his overall disease at this hospital given the absence of steady infectious disease consultation services. I therefore recommend that he be transferred to a facility that can perform the interventional radiology procedures necessary to access, drain and or biopsy the L2-3 disc space and obtain an Infectious Disease consult. Subjective Date/time seen: 09/21/23 18:28 Interval history: Mr. Harmon is the same today. He has not changed since I last saw him last night. He continues to complain of back pain. He is not having new neurologic or constitutional issues. Exam Narrative: Strength in the left lower extremity is normal throughout.? He is able to lift his leg off the bed and keep it straight at the knee.? Dorsiflexion and plantar flexion are normal.? Sensation is decreased distally in the left lower extremity from the ankle down.? His otherwise normal in the left lower extremity.? His back is nontender Objective Data Vital Signs Vital Signs: Vital Signs - 24 hr 09/20/23 19:31 09/20/23 21:36 09/21/23 05:50 Temperature 97.5 F L 96.9 F L Pulse Rate 93 99 Respiratory Rate 13 14 Blood Pressure 126/65 125/70 Pulse Oximetry 95 94 Oxygen Delivery Room Air 09/21/23 08:40 09/21/23 08:49 09/21/23 09:00 Temperature 97.6 F Pulse Rate 97 93 98 Respiratory Rate 18 Blood Pressure 131/68 118/65 130/64 Pulse Oximetry Oxygen Delivery 09/21/23 09:15 09/21/23 09:30 09/21/23 09:45 Temperature Pulse Rate 100 98 103 H Respiratory Rate Blood Pressure 115/69 129/52 L 115/63 Pulse Oximetry Oxygen Delivery 09/21/23 10:00 09/21/23 10:15 09/21/23 10:30 Temperature Pulse Rate 103 H 111 H 76 Respiratory Rate Blood Pressure 109/56 L 104/56 L 108/57 L Pulse Oximetry Oxygen Delivery 09/21/23 10:45 09/21/23 11:00 09/21/23 12:57 Temperature 97.5 F L Pulse Rate 112 H 133 H 130 H Respiratory Rate 18 Blood Pressure 120/62 115/69 96/44 L Pulse Oximetry Oxygen Delivery 09/21/23 11:15 09/21/23 11:30 09/21/23 11:45 Temperature Pulse Rate 135 H 122 H 133 H Respiratory Rate Blood Pressure 115/67 105/53 L 97/50 L Pulse Oximetry Oxygen Delivery 09/21/23 12:00 09/21/23 12:15 09/21/23 12:22 Temperature Pulse Rate 133 H 133 H 123 H Respiratory Rate Blood Pressure 122/76 102/63 127/67 Pulse Oximetry Oxygen Delivery 09/21/23 14:00 Temperature 98.1 F Pulse Rate 112 H Respiratory Rate 18 Blood Pressure 111/63 Pulse Oximetry 98 Oxygen Delivery Intake/Output Intake/Output: Intake & Output 09/18/23 09/19/23 09/20/23 09/21/23 23:59 23:59 23:59 23:59 Intake Total 1686 320 618 Output Total 1000 500 Balance 686 320 118 Meds/Results Medications: Active Medications Generic Name Dose Route Start Last Admin Trade Name Freq PRN Reason Stop Dose Admin Acetaminophen 500 mg 09/09/23 01:19 09/21/23 17:05 Acetaminophen 500 Mg Tablet PO 500 mg Q6H PRN Administration Pain 1-6 Apixaban 5 mg 09/09/23 09:00 09/21/23 13:19 Apixaban 5 Mg Tablet PO Not Given Q12HR AURELIO Aspirin 81 mg 09/09/23 09:00 09/21/23 13:19 Aspirin 81 Mg Enteric Tablet PO 10/09/23 08:59 Not Given DAILY AURELIO Atorvastatin Calcium 40 mg 09/09/23 21:00 09/20/23 20:46 Atorvastatin 40 Mg Tablet PO 40 mg HS AURELIO Administration Citalopram Hydrobromide 20 mg 09/14/23 09:00 09/21/23 13:37 Citalopram Hydrobromide 20 Mg Tablet PO Not Given DAILY AURELIO Dextro
[2023-09-21] MEDS: METOPROLOL TARTRATE 12.5 MG TABLET PO (20:42)
[2023-09-21] MEDS: SENNA/DOCUSATE SODIUM TABLET 1 TAB PO (20:42)
[2023-09-21] MEDS: APIXABAN 5 MG TABLET PO (20:42)
[2023-09-21] MEDS: PANTOPRAZOLE SODIUM IV 40 MG VIAL IV PUSH (20:42)
[2023-09-21] MEDS: PRAMIPEXOLE 0.5 MG TABLET PO (20:42)
[2023-09-21] MEDS: FINASTERIDE 5 MG TABLET PO (20:42)
[2023-09-21] MEDS: ATORVASTATIN 40 MG TABLET PO (20:42)
[2023-09-21 21:45] LABS: Glucose Point of Care 124 mg/dl (65-105)
[2023-09-21] MEDS: VANCOMYCIN 1,000 MG/NS 250 ML 1,000 MG/250 ML BAG 250 MG IVPB (22:52)
[2023-09-22] MEDS: SODIUM CHLORIDE 0.9% IV 1,000 ML 50 ML IV CONT (05:50)
[2023-09-22 05:52] LABS: Basophils Absolute Auto 0.1 K/mm3 (0.0-0.1); Basophils Percent Auto 0.9 % (0.2-1.2); Eosinophils Absolute Auto 0.4 K/mm3 (0-0.3); Eosinophils Percent Auto 5.1 % (0-4.4); Hematocrit 33.5 % (42.0-52.0); Hemoglobin 10.2 g/dL (14.0-18.0); Immature Granulocyte Absolute 0.08 K/mm3 (0.00-0.031); Lymphocytes Absolute Auto 1.59 K/mm3 (0.9-3.2); Lymphocytes Percent Auto 20.8 % (18.3-44.2); Mean Corpuscular HGB Conc 30.4 g/dl (32-36); Mean Corpuscular Hemoglobin 32.3 pg (26-34); Mean Platelet Volume 8.6 fl (7.4-10.4); Monocytes Absolute Auto 0.9 K/mm3 (0.1-0.6); Monocytes Percent Auto 11.9 % (2.6-8.5); Neutrophils Absolute Auto 4.6 K/mm3 (1.3-6.7); Neutrophils Percent Auto 60.3 % (45.5-73.1); Platelet Count Result 245 k/mm3 (150-375); Red Blood Count 3.16 M/mm3 (4.6-6.20); Red Cell Distribution Width 17.2 % (11.5-14.5); White Blood Count 7.6 K/mm3 (4.5-10.0)
[2023-09-22 06:00] VITALS: BP 118/47; PULSE 62; RESP 18; TEMP 36.3; O2SAT 96
[2023-09-22 06:03] LABS: Alanine Aminotransferase 11 U/L (6-50); Albumin Level 2.8 g/dL (3.5-5.1); Alkaline Phosphatase 71 U/L (38-126); Anion Gap 7 mmol/L (8-16); Aspartate Amino Transferase 22 U/L (17-59); Bilirubin,Total 0.5 mg/dL (0.2-1.3); Blood Urea Nitrogen 18 mg/dL (9-20); Calcium 8.7 mg/dL (8.4-10.2); Carbon Dioxide 23 mmol/L (22-30); Chloride 109 mmol/L (98-107); Estimated CRCL calculation 25 ml/min; Estimated Glomerular Filt Rate 23; Glucose 144 mg/dL (65-110); Phosphorus 2.6 mg/dL (2.5-4.5); Potassium 3.5 mmol/L (3.4-5.0); Sodium 139 mmol/L (137-145)
[2023-09-22 06:50] LABS: Anisocytosis 1+ (NORMAL); Macrocytosis 1+ (NORMAL); Platelet Estimate Adequate (Adequate); Schistocytes None Seen (NORMAL)
--- NOTE | 2023-09-22 08:00 | PM.IMPN ---
Progress Note: A&P Assessment and Plan (1) Pneumonia: Code(s): J18.9 - Pneumonia, unspecified organism Status: Acute Assessment and Plan: Continue vancomycin and Zosyn (2) Encephalopathy: Code(s): G93.40 - Encephalopathy, unspecified Status: Acute Assessment and Plan: Likely due to acute infection and end-stage renal disease (3) DM2 (diabetes mellitus, type 2): Code(s): E11.9 - Type 2 diabetes mellitus without complications Status: Chronic Assessment and Plan: 09/17/2023 blood sugar control adequate (4) Ileus: Code(s): K56.7 - Ileus, unspecified Status: Acute Assessment and Plan: Likely due to acute infection Clinically resolving (5) Discitis of lumbar region: Code(s): M46.46 - Discitis, unspecified, lumbar region Status: Acute Assessment and Plan: on vancomycin started on 09/21 and zosyn on 09/14- change to cefepime 09/19 Blood culture May 27 grew Staphylococcus aureus, susceptible to vancomycin Blood cultures on 06/01 09/08 and 09/15 have been negative MRI of t-spine 1. Mild thoracic spondylosis. No evident osteomyelitis or other pathologic marrow replacing process. 2. Nonspecific lung disease in the bilateral lower lobes, most likely atelectasis and/or pneumonia with small right pleural effusion. LS spine reports 1. L2-L3 discitis with osteolysis involving significant portions of the L2 and L3 vertebral bodies. No evident paraspinal or epidural abscess. 2. Severe lumbar spondylosis Consult neurosurgeon for evaluation and management Appreciate neurosurgeon consultation, neurosurgeon considers it is impossible to know whether a diskitis exists without biopsying the interspace. Neurosurgeon also considers there is no clear indication for surgery with regards to the diskitis.? The stenosis at L3-4 could be operated on but since he is not ambulatory it is probably not useful to do so. on 09/21 Neurosurgery evaluate patient again, recommends to transfer patient to hospital where can not provide id consultation and biopsy of the diskitis (6) ESRD (end stage renal disease) on dialysis: Code(s): N18.6 - End stage renal disease; Z99.2 - Dependence on renal dialysis Status: Acute Assessment and Plan: Continue dialysis Tuesday (7) Ulcer of left foot: Code(s): L97.529 - Non-pressure chronic ulcer of other part of left foot with unspecified severity Status: Acute Assessment and Plan: stage II sacral to be good ulcer Continue dressing changes per wound care (8) CAD (coronary artery disease): Code(s): I25.10 - Atherosclerotic heart disease of [place] coronary artery without angina pectoris Status: Acute Assessment and Plan: Without anginal symptoms at present (9) Atrial fibrillation: Code(s): I48.91 - Unspecified atrial fibrillation Status: Chronic Assessment and Plan: Continue long-term anticoagulation Eliquis 5 mg q.12 hours p.o. metoprolol 12.5 mg b.i.d. p.o., the Subjective Date/time seen: 09/22/23 08:00 Interval history: Patient denies chest pain, shortness breast, but continues to complain of back pain. Patient had a dialysis yesterday, patient is afebrile, blood pressure stable Exam Narrative: No obvious distress, Sclerae nonicteric. Pupils equal and reactive. Oral mucosa pink and moist. PERRLA Neck without JVD. Chest with slightly coarse breath sounds and normal effort. Heart with normal S1 and S2, regular rate, soft 2/6 systolic ejection murmur right upper sternal border. Extremities without edema. Right above knee amputation Abdomen protuberant but soft with bowel sounds present, nontender, no palpable mass or organomegaly. Skin: Sacral stage II decubitus ulcer Musculoskeletal right AKA otherwise no significant deformities. Low back tenderness Neurologic cranial nerves intact to inspection. Tone and str
[2023-09-22 08:01] LABS: Glucose Point of Care 136 mg/dl (65-105)
[2023-09-22] MEDS: APIXABAN 5 MG TABLET PO (09:36)
[2023-09-22] MEDS: MIDODRINE HCL 10 MG TABLET 20 MG PO ×3 (09:36→16:15)
[2023-09-22] MEDS: POTASSIUM CHLORIDE 20 MEQ PACKET (FOR LIQUID) 40 MEQ PO ×2 (09:36→16:15)
[2023-09-22] MEDS: CITALOPRAM HYDROBROMIDE 20 MG TABLET PO (09:36)
[2023-09-22] MEDS: PRAMIPEXOLE 0.5 MG TABLET PO (09:36)
[2023-09-22] MEDS: ASPIRIN 81 MG ENTERIC TABLET PO (09:36)
[2023-09-22] MEDS: SEVELAMER CARBONATE 800 MG TABLET PO ×3 (09:36→16:15)
[2023-09-22] MEDS: PANTOPRAZOLE SODIUM IV 40 MG VIAL IV PUSH (09:36)
[2023-09-22 09:46] VITALS: PULSE 72
[2023-09-22] MEDS: METOPROLOL TARTRATE 12.5 MG TABLET PO (09:46)
--- NOTE | 2023-09-22 11:05 | PCOTNOTE ---
Per RN, wait until this afternoon, RN wanting to have a conversation with MD about Patient. Will check back at a later time.
[2023-09-22 12:14] LABS: Glucose Point of Care 147 mg/dl (65-105)
[2023-09-22] MEDS: ACETAMINOPHEN 500 MG TABLET PO (13:15)
--- NOTE | 2023-09-22 13:20 | PCOTNOTE ---
Per RN, Patient not appropriate for therapy this afternoon, Patient is also having increased pain and can not tolerate.
--- NOTE | 2023-09-22 13:55 | P.PNNP_ITS ---
Progress Note: A&P Assessment and Plan (1) End stage renal disease: Code(s): N18.6 - End stage renal disease Status: Chronic Assessment and Plan: * HD tomorrow * continue M/W/ outpatient dialysis schedule * outpatient dialysis done at [facility] under the care of Dr. Wesley Santiago * follow electrolytes, volume status, and clearance (2) Altered mental status: Code(s): R41.82 - Altered mental status, unspecified Status: Acute Assessment and Plan: * still confused (and continues to fluctuate) * thought to be secondary to infection (pneumonia +/- left foot wounds +/- decubitus ulcer) * blood cultures are negative * on antibiotics * CT of head shows nothing acute * continue supportive therapy (3) Hypokalemia: Code(s): E87.6 - Hypokalemia Status: Acute Assessment and Plan: * suspect due to poor oral intake * on a regular diet * getting potassium supplements * adjust dialysis to compensate as well * follow trend (4) Discitis of lumbar region: Code(s): M46.46 - Discitis, unspecified, lumbar region Status: Acute Assessment and Plan: * on antibiotics * lumbar MRI results noted * Neurosurgery recommendations reviewed (5) Pneumonia: Code(s): J18.9 - Pneumonia, unspecified organism Status: Acute Assessment and Plan: * suspect based on imaging on admission * on antibiotics (has likely completed treatment for this) * respiratory status stable (6) Atrial fibrillation: Code(s): I48.91 - Unspecified atrial fibrillation Status: Chronic Assessment and Plan: * rate control strategy * already on anticoagulation (7) Anemia: Code(s): D64.9 - Anemia, unspecified Status: Chronic Assessment and Plan: * due to ESRD and acute illness * Epogen with HD * follow trend of H/H (8) HTN (hypertension): Code(s): I10 - Essential (primary) hypertension Status: Chronic Assessment and Plan: * well controlled * follow trend of hemodynamics (9) DM2 (diabetes mellitus, type 2): Code(s): E11.9 - Type 2 diabetes mellitus without complications Status: Chronic Assessment and Plan: * follow accu-cheks * glycemic control per hospitalists Will continue to follow. Subjective Date/time seen: 09/22/23 13:55 Interval history: Follow-up for end stage renal disease on hemodialysis. Tolerated dialysis treatment yesterday without any issues or problems; remains intermittently confused with his only real complaint that of on/off back pain as well as abdominal bloating; no other events overnight or earlier this AM; no events overnight or earlier this morning. Exam Narrative: General: somewhat chronically ill appearing male in NAD Heart: normal S1 and S2; no rub Lungs: clear bilaterally Abdomen: soft, nontender, hypoactive bowel sounds Extremities: no cyanosis or clubbing; s/p right AKA Skin: left foot dressings in place Objective Data Vital Signs Vital Signs: Vital Signs Temp Pulse Resp BP Pulse Ox O2 Del Method 09/22/23 09:46 72 09/22/23 06:00 97.4 F L 62 18 118/47 L 96 09/21/23 22:00 97.7 F 83 16 136/87 98 09/21/23 20:00 Room Air Intake/Output Intake/Output:
--- NOTE | 2023-09-22 13:55 | PM.PNNEP ---
Progress Note: A&P Assessment and Plan (1) End stage renal disease: Code(s): N18.6 - End stage renal disease Status: Chronic Assessment and Plan: HD tomorrow continue M/W/F outpatient dialysis schedule outpatient dialysis done at [facility] under the care of Dr. Wesley Santiago follow electrolytes, volume status, and clearance (2) Altered mental status: Code(s): R41.82 - Altered mental status, unspecified Status: Acute Assessment and Plan: still confused (and continues to fluctuate) thought to be secondary to infection (pneumonia +/- left foot wounds +/- decubitus ulcer) blood cultures are negative on antibiotics CT of head shows nothing acute continue supportive therapy (3) Hypokalemia: Code(s): E87.6 - Hypokalemia Status: Acute Assessment and Plan: suspect due to poor oral intake on a regular diet getting potassium supplements adjust dialysis to compensate as well follow trend (4) Discitis of lumbar region: Code(s): M46.46 - Discitis, unspecified, lumbar region Status: Acute Assessment and Plan: on antibiotics lumbar MRI results noted Neurosurgery recommendations reviewed (5) Pneumonia: Code(s): J18.9 - Pneumonia, unspecified organism Status: Acute Assessment and Plan: suspect based on imaging on admission on antibiotics (has likely completed treatment for this) respiratory status stable (6) Atrial fibrillation: Code(s): I48.91 - Unspecified atrial fibrillation Status: Chronic Assessment and Plan: rate control strategy already on anticoagulation (7) Anemia: Code(s): D64.9 - Anemia, unspecified Status: Chronic Assessment and Plan: due to ESRD and acute illness Epogen with HD follow trend of H/H (8) HTN (hypertension): Code(s): I10 - Essential (primary) hypertension Status: Chronic Assessment and Plan: well controlled follow trend of hemodynamics (9) DM2 (diabetes mellitus, type 2): Code(s): E11.9 - Type 2 diabetes mellitus without complications Status: Chronic Assessment and Plan: follow accu-cheks glycemic control per hospitalists Will continue to follow. Subjective Date/time seen: 09/22/23 13:55 Interval history: Follow-up for end stage renal disease on hemodialysis. Tolerated dialysis treatment yesterday without any issues or problems; remains intermittently confused with his only real complaint that of on/off back pain as well as abdominal bloating; no other events overnight or earlier this AM; no events overnight or earlier this morning. Exam Narrative: General: somewhat chronically ill appearing male in NAD Heart: normal S1 and S2; no rub Lungs: clear bilaterally Abdomen: soft, nontender, hypoactive bowel sounds Extremities: no cyanosis or clubbing; s/p right AKA Skin: left foot dressings in place Objective Data Vital Signs Vital Signs: Vital Signs Temp Pulse Resp BP Pulse Ox O2 Del Method 09/22/23 09:46 72 09/22/23 06:00 97.4 F L 62 18 118/47 L 96 09/21/23 22:00 97.7 F 83 16 136/87 98 09/21/23 20:00 Room Air Intake/Output Intake/Output: Intake & Output 09/19/23 09/20/23 09/21/23 09/22/23 23:59 23:59 23:59 23:59 Intake Total 2038 485 9598 480 Output Total 1000 500 0 Balance 820 422 7332 480 Meds/Results Medications: Active Medications Generic Name Dose Route Start Last Admin Trade Name Freq PRN Reason Stop Dose Admin Acetaminophen 500 mg 09/09/23 01:19 09/22/23 13:15 Acetaminophen 500 Mg Tablet PO 500 mg Q6H PRN Administration Pain 1-6 Apixaban 5 mg 09/09/23 09:00 09/22/23 09:36 Apixaban 5 Mg Tablet PO 5 mg Q12HR AURELIO Administration Aspirin 81 mg 09/09/23 09:00 09/22/23 09:36 Aspirin 81 Mg Enteric Tablet PO 10/09/23 08:59 81 mg DAILY AURELIO
[2023-09-22 14:00] VITALS: BP 131/52; PULSE 64; RESP 18; TEMP 36.3; O2SAT 100
--- NOTE | 2023-09-22 15:03 | PCPTNOTE ---
RN reports patient is having increased pain today and unable to tolerate therapy. Plan to continue PT per plan of care.
[2023-09-22 17:01] LABS: Glucose Point of Care 142 mg/dl (65-105)
[2023-09-22] MEDS: CEFEPIME 1 GM/NS 50 ML 1 GM/50 ML BAG IVPB (17:41)
--- NOTE | 2023-09-22 19:14 | PC.NURSE ---
Pt being transferred to [facility] for higher level of care. Pt consented to transfer due to pt mentation changing to A/Ox1 this afternooon. Report called to CHARLETTE Anderson at [facility]. He will go to room 606-1, accepted by Ricky NIEVES.
--- NOTE | 2023-09-23 07:55 | P.TS_ITS ---
Transfer Discharge Sum: Prov Provider Date of admission: 09/08/23 18:18 Primary care physician: Adri Singh, SOFTWARE SECURITY ARCHITECT Admitting clinician: Calin Peoples MD Consults: 09/08/23 18:19 Consult to Physician Routine Comment: Consulting Provider: Kaushik Jaquez Reason for consultation: n: HD Has provider been notified: Yes 09/14/23 Consult to Physician Routine Comment: Spoke to 09.14.23 @ [phone] (,) Consulting Provider: Jignesh Russell community arts officer/MD group to consult: NEUROLOGY Reason for consultation: AMS Has provider been notified: Yes 09/15/23 Consult to Physician Routine Comment: spoke to office @[phone] (,) Consulting Provider: Armando Jara community arts officer/MD group to consult: nat Reason for consultation: adynamic ileus abnormal CT scan Has provider been notified: Yes Consult to Physician Routine Comment: spoke to exchange @[phone] ([facility]) Consulting Provider: Liz Au community arts officer/ group to consult: cardiology Reason for consultation: cardiology- leonid later when more stable Has provider been notified: Yes 09/19/23 Consult to Physician Routine Comment: Called Dr zapata 09.19.23 @ [phone] (,) Consulting Provider: Delvis Palomo community arts officer/ group to consult: On-call orthopedic surgeon - I called Cole 09.19.23 @ [phone] (,) he instructed to consult Neurosurgery. with neurosurgery office 09.20.23 @ [phone]--/ Office returned call- Dr Palomo is in facility and will see patient today. 09.20.23 Reason for consultation: L2-L3 discitis with osteolysis involving significant portions of the L2 and Has provider been notified: Yes 09/20/23 Consult to Physician Routine Comment: DUPLICATE CONSULT Consulting Provider: Delvis Palomo community arts officer/ group to consult: On-call neurosurgeon Reason for consultation: L2-L3 discitis with osteolysis involving significant portions of the L2 L3 Has provider been notified: Yes DS: Admitting Diagnosis Discharge Date 09/22/23 Admitting Diagnosis (1) Pneumonia: ?Code(s): J18.9 - Pneumonia, unspecified organism ?Status:?Acute ?Assessment and Plan: * Continue vancomycin and Zosyn(2) Encephalopathy: ?Code(s): G93.40 - Encephalopathy, unspecified ?Status:?Acute ?Assessment and Plan: * Likely due to acute infection and end-stage renal disease(3) DM2 (diabetes mellitus, type 2): ?Code(s): E11.9 - Type 2 diabetes mellitus without complications ?Status:?Chronic ?Assessment and Plan: * 09/17/2023 blood sugar control adequate(4) Ileus: ?Code(s): K56.7 - Ileus, unspecified ?Status:?Acute ?Assessment and Plan: * Likely due to acute infection * Clinically resolving(5) Discitis of lumbar region: ?Code(s): M46.46 - Discitis, unspecified, lumbar region ?Status:?Acute DS: Discharge Diagnosis Discharge Diagnosis (1) Pneumonia: Code(s): J18.9 - Pneumonia, unspecified organism Status: Acute Assessment and Plan: * Continue vancomycin and Zosyn (2) Encephalopathy: Code(s): G93.40 - Encephalopathy, unspecified Status: Acute Assessment and Plan: * Likely due to acute infection and end-stage renal disease (3) DM2 (diabetes mellitus, type 2): Code
--- NOTE | 2023-09-23 07:55 | PM.TDS ---
Transfer Discharge Sum: Prov Provider Date of admission: 09/08/23 18:18 Primary care physician: Adri Singh, BOX PERSON Admitting clinician: Calin Peoples MD Consults: 09/08/23 18:19 Consult to Physician Routine Comment: Consulting Provider: Kaushik Jaquez Reason for consultation: n: HD Has provider been notified: Yes 09/14/23 Consult to Physician Routine Comment: Spoke to 09.14.23 @ [phone] (,) Consulting Provider: Jignesh Russell call box wirer/MD group to consult: NEUROLOGY Reason for consultation: AMS Has provider been notified: Yes 09/15/23 Consult to Physician Routine Comment: spoke to office @[phone] (,) Consulting Provider: Armando Jara call box wirer/MD group to consult: nat Reason for consultation: adynamic ileus abnormal CT scan Has provider been notified: Yes Consult to Physician Routine Comment: spoke to exchange @[phone] ([facility]) Consulting Provider: Liz Au call box wirer/ group to consult: cardiology Reason for consultation: cardiology- leonid later when more stable Has provider been notified: Yes 09/19/23 Consult to Physician Routine Comment: Called Dr zapata 09.19.23 @ [phone] (,) Consulting Provider: Delvis Palomo call box wirer/ group to consult: On-call orthopedic surgeon - I called Cole 09.19.23 @ 1709 (,) he instructed to consult Neurosurgery. with neurosurgery office 09.20.23 @ [phone]--/ Office returned call- Dr Palomo is in facility and will see patient today. 09.20.23 Reason for consultation: L2-L3 discitis with osteolysis involving significant portions of the L2 and Has provider been notified: Yes 09/20/23 Consult to Physician Routine Comment: DUPLICATE CONSULT Consulting Provider: Delvis Palomo call box wirer/ group to consult: On-call neurosurgeon Reason for consultation: L2-L3 discitis with osteolysis involving significant portions of the L2 L3 Has provider been notified: Yes DS: Admitting Diagnosis Discharge Date 09/22/23 Admitting Diagnosis (1) Pneumonia: ?Code(s): J18.9 - Pneumonia, unspecified organism ?Status:?Acute ?Assessment and Plan: Continue vancomycin and Zosyn(2) Encephalopathy: ?Code(s): G93.40 - Encephalopathy, unspecified ?Status:?Acute ?Assessment and Plan: Likely due to acute infection and end-stage renal disease(3) DM2 (diabetes mellitus, type 2): ?Code(s): E11.9 - Type 2 diabetes mellitus without complications ?Status:?Chronic ?Assessment and Plan: 09/17/2023 blood sugar control adequate(4) Ileus: ?Code(s): K56.7 - Ileus, unspecified ?Status:?Acute ?Assessment and Plan: Likely due to acute infection Clinically resolving(5) Discitis of lumbar region: ?Code(s): M46.46 - Discitis, unspecified, lumbar region ?Status:?Acute DS: Discharge Diagnosis Discharge Diagnosis (1) Pneumonia: Code(s): J18.9 - Pneumonia, unspecified organism Status: Acute Assessment and Plan: Continue vancomycin and Zosyn (2) Encephalopathy: Code(s): G93.40 - Encephalopathy, unspecified Status: Acute Assessment and Plan: Likely due to acute infection and end-stage renal disease (3) DM2 (diabetes mellitus, type 2): Code(s): E11.9 - Type 2 diabetes mellitus without complications Status: Chronic Assessment and Plan: 09/17/2023 blood sugar control adequate (4) Ileus: Code(s): K56.7 - Ileus, unspecified Status: Acute Assessment and Plan: Likely due to acute infection Clinically resolving (5) Discitis of lumbar region: Code(s): M46.46 - Discitis, unspecified, lumbar region Status: Acute Assessment and Plan: on vancomycin started on 09/21 and zosyn on change to cefepime 09/19 Blood culture May 27 grew Staphylococcus a
== END 2023-09-22 19:50 | disposition short-term general hospital (02) | DRG 193 ==
LOC: ANHED 19:56 → ANH3MEDSUR 20:08
PROVIDERS: Emergency Medicine; Family Medicine; General Practice; Internal Medicine; Internal Medicine Nephrology; Student in an Organized Health Care Education/Training Program; Admitting Provider Internal Medicine; Emergency Provider Emergency Medicine; PCP Nurse Practitioner Family; Visit Provider Hospitalist
DX: J18.9 Pneumonia, unspecified organism (principal); N18.6 End stage renal disease; I12.0 Hypertensive chronic kidney disease with stage 5 chronic kidney disease or end stage renal disease; I48.20 Chronic atrial fibrillation, unspecified; K56.7 Ileus, unspecified; G93.49 Other encephalopathy; E11.22 Type 2 diabetes mellitus with diabetic chronic kidney disease; G40.909 Epilepsy, unspecified, not intractable, without status epilepticus; N40.0 Benign prostatic hyperplasia without lower urinary tract symptoms; E86.1 Hypovolemia; F41.8 Other specified anxiety disorders; E87.6 Hypokalemia; D63.1 Anemia in chronic kidney disease; M46.46 Discitis, unspecified, lumbar region; L89.152 Pressure ulcer of sacral region, stage 2; L97.529 Non-pressure chronic ulcer of other part of left foot with unspecified severity; G47.33 Obstructive sleep apnea (adult) (pediatric); Z20.822 Contact with and (suspected) exposure to COVID-19; Z66 Do not resuscitate; Z99.2 Dependence on renal dialysis; Z95.1 Presence of aortocoronary bypass graft; Z95.5 Presence of coronary angioplasty implant and graft; Z79.01 Long term (current) use of anticoagulants
CPT/HCPCS: 36415; 70450; 71045; 71046; 72146; 72148; 73620; 74176; 80048; 80053; 80069; 80202; 81001; 82948; 83605; 83735; 84100; 84132; 84145; 85025; 85027; 85610; 85730; 86140; 86706; 87040; 87340; 87637; 87641; 93005; 93308; 93923; 96361; 96365; 96367; 96375; 97110; 97161; 97165; 97530; 97535; 99285; A9270; C8924; C9113; G0257; J0456; J0692; J0696; J1200; J1815; J2060; J2405; J2543; J2550; J2765; J3370; J3480; J7030; J7040; J7050; J7120; P9047; Q5105; Q9957

== ENCOUNTER 2023-10-19 11:39 | Inpatient (IN) | payer MEDICARE, SELFPAY ==
[2023-10-19] VITALS (27 sets, daily range): BP systolic 94–125; BP diastolic 56–79; PULSE 64–109; RESP 14–24; TEMP 36.4–36.6; O2SAT 96–100
--- NOTE | ~2023-10-19 | XR_ITS ---
Supine and upright views of the abdomen Clinical history: Abdominal distention Findings: There is diffuse gaseous distention of bowel loops, including large and small bowel loops. No evidence for free air. No abnormal mass lesion or calcification is seen. Osseous structures are in tact. Impression: Diffuse gaseous distention of large and small bowel is. Consider generalized ileus. Reviewed, dictated and finalized at [facility]. UNITY ARTIST Impression: Diffuse gaseous distention of large and small bowel is. Consider generalized il eus.
--- NOTE | ~2023-10-19 | CT_ITS ---
EXAMINATION: CT brain wo con DATE: 10/24/2023 14:53 INDICATION: Neurologic status change TECHNIQUE: Computed tomography (CT) of the head was performed without intravenous contrast. Sagittal and coronal reconstructions were performed. The mA was adjusted according to patient size. Iterative reconstruction technique was employed. The dose-length product was 681.00 mGy-cm. COMPARISON: head CT dated 10/19/2023 FINDINGS: No acute intracranial hemorrhage, acute infarction or abnormal extra axial fluid collection. There is mild scattered white matter hypoattenuation consistent with chronic small vessel ischemic disease. S ymmetric prominence of the sulci consistent with mild age-appropriate diffuse cerebral volume loss. Ventricles are normal and symmetric. No mass/mass effect. Changes of bilateral intraocular lens repla cement. The orbits and mastoid air cells are normal. Small mucous retention cyst in the right maxilla ry sinus. Intracranial calcified cerebral atherosclerosis is noted. IMPRESSION: 1. Stable appearance of age-related changes including mild diffuse volume loss and mild scattered whi te matter hypoattenuation consistent with chronic small vessel ischemic disease. No acute intracrania l process. Reviewed, dictated and finalized at location A. DENCE MANAGER IMPRESSION: 1. Stable appearance of age-related changes including mild diffuse volume loss and mild scattered white matter hypoattenuation consistent with chronic small v essel ischemic disease. No acute intracranial process.
--- NOTE | ~2023-10-19 | XR_ITS ---
EXAMINATION: XR chest 1V portable Exam Date/Time: 10/19/2023 18:15 PHYSICIAN ASSISTANT CERTIFIED HISTORY: SY CATH IN CHEST Comparison: 09/21/2023. RESULT: Lines, tubes, and devices: New right IJ central line, terminating in the upper superior vena cava. I ntact sternotomy wires Lungs and pleura: Linear interface in the right apex, with the appearance of a skin fold rather than a pleural line. Alignment is crowding. Linear bibasilar opacities. Cardiomediastinal silhouette: Stable. Other: No acute osseous or upper abdominal finding. IMPRESSION: Presumed skinfold simulating a small right apical pneumothorax. Consider repeat imaging in the uprigh t position. Right IJ central line terminating in the upper SVC. Results reported telephonically to Freida Paniagua RN by Dr. Collado at 6:58 PM on 10/19/2023. Reviewed, dictated and finalized at location K. ICIAN ASSISTANT CERTIFIED IMPRESSION: Presumed skinfold simulating a small right apical pneumothorax. Consider repeat imaging in the upright position. Right IJ central line terminating in the upper SVC. Results reported telephonically to Freida Paniagua RN by Dr. Collado at 6:58 P M on 10/19/2023.
--- NOTE | ~2023-10-19 | XR_ITS ---
EXAMINATION: XR chest 1V portable INDICATION: Shortness of breath and weakness TECHNIQUE: Portable AP chest at 0813 hours COMPARISON: 10/19/2023 FINDINGS: There is chronic elevation of the right hemidiaphragm. Bibasilar airspace opacities are unc hanged. No pleural effusion or pneumothorax. Median sternotomy wires and mediastinal surgical clips a re seen, likely from prior coronary artery bypass grafting. A right internal jugular central venous c atheter ends with its tip in the proximal superior vena cava. IMPRESSION: 1. Stable bibasilar airspace opacities, consistent with atelectasis versus scarring. Reviewed, dictated and finalized at location B. TESY BOOTH CASHIER IMPRESSION: 1. Stable bibasilar airspace opacities, consistent with atelectasis versus scar ring.
--- NOTE | ~2023-10-19 | XR_ITS ---
EXAMINATION: XR chest 1V portable Exam Date/Time: 10/19/2023 19:10 CASH POSTER HISTORY: R/O PNEUMO Comparison: Same date at 6:25 PM. RESULT: Lines, tubes, and devices: Right IJ central line in stable position. Stable intact sternotomy wires. Lungs and pleura: No pneumothorax. Persistent linear bibasilar atelectasis/scar and low volumes. Cardiomediastinal silhouette: Stable. Other: No acute osseous or upper abdominal finding. IMPRESSION: No acute cardiopulmonary process. The prior radiograph findings were likely related to artifact from a skin fold. Reviewed, dictated and finalized at location K. POSTER IMPRESSION: No acute cardiopulmonary process. The prior radiograph findings were likely rel ated to artifact from a skin fold.
--- NOTE | ~2023-10-19 | CT_ITS ---
EXAMINATION: CT BRAIN W/O DATE: 10/19/2023 12:40 INDICATION: Altered mental status TECHNIQUE: Computed tomography (CT) of the head was performed without intravenous contrast. The dose- length product was 605.33 mGy-cm. Automated exposure control and iterative reconstruction technique w ere employed. COMPARISON: CT dated 09/09/2023 FINDINGS: Normal brain parenchymal volume for age. Normal whitney-white differentiation. No acute intrac ranial hemorrhage, infarction, mass or mass effect. There are scattered mild periventricular and subc ortical white matter changes, most likely related to small vessel ischemic disease (microangiopathy). There is intracranial atherosclerosis. No ventriculomegaly or midline shift. Midline sagittal images demonstrate a normal corpus callosum, c raniovertebral junction and sella turcica. Basilar cisterns are patent. Paranasal sinuses and mastoids are pneumatized. No depressed skull fractures. IMPRESSION: 1. No acute intracranial abnormality. Reviewed, dictated and finalized at location B. IC RELATIONS INTERN
--- NOTE | 2023-10-19 11:48 | ECG_ITS ---
Measurements Intervals [place] Rate: 87 P: IA: 0 QRS: -24 QRSD: 114 T: 247 QT: 406 QTc: 490 Interpretive Statements ATRIAL FLUTTER/TACHYCARDIA WITH ABERRANT CONDUCTION OR VENTRICULAR PREMATURE COMPLEXES LOW QRS VOLTAGE IN EXTREMITY LEADS [QRS DEFLECTION < 0.5 mV IN LIMB LEADS] POOR R-WAVE PROGRESSION, CANNOT RULE OUT OLD aNTEROSEPTAL MYOCARDIAL INFARCTION VF] COMPARED TO ECG 09/08/2023 14:35:50 NO SIGNIFICANT CHANGE Electronically Signed On 10-19-2023 12:12:45 BUSINESS INITIATIVES MANAGER by Shayna Matta M.D.
[2023-10-19 12:11] LABS: Basophils Absolute Auto 0.1 K/mm3 (0.0-0.1); Basophils Percent Auto 1.5 % (0.2-1.2); Eosinophils Absolute Auto 0.2 K/mm3 (0-0.3); Eosinophils Percent Auto 2.5 % (0-4.4); Hematocrit 34.7 % (42.0-52.0); Hemoglobin 11.1 g/dL (14.0-18.0); Immature Granulocyte Absolute 0.03 K/mm3 (0.00-0.031); Immature Granulocyte Percent A 0.4 % (0-0.5); Lymphocytes Absolute Auto 1.96 K/mm3 (0.9-3.2); Mean Corpuscular Hemoglobin 32.8 pg (26-34); Mean Corpuscular Volume 102.7 fl (80-100); Mean Platelet Volume 10.2 fl (7.4-10.4); Monocytes Absolute Auto 0.8 K/mm3 (0.1-0.6); Monocytes Percent Auto 10.8 % (2.6-8.5); Neutrophils Absolute Auto 4.4 K/mm3 (1.3-6.7); Neutrophils Percent Auto 58.8 % (45.5-73.1); Platelet Count Result 208 k/mm3 (150-375); Red Blood Count 3.38 M/mm3 (4.6-6.20); Red Cell Distribution Width 18.2 % (11.5-14.5); White Blood Count 7.5 K/mm3 (4.5-10.0)
--- NOTE | 2023-10-19 12:21 | ED.AMS ---
HPI - Altered Mental Status General Chief Complaint: Altered Mental Status Stated Complaint: AMS Time Seen by Provider: 10/19/23 12:16 Source: patient and family Mode of arrival: EMS Limitations: no limitations History of Present Illness HPI narrative: 73 years old white male came from residential by ambulance because of confusion, lethargic and of. Last time was seen by his last night was telling me that patient looks different this morning and disoriented. Patient is disoriented to his age only. Otherwise normal. Complaining of bedsores pain. He denies any fever, chills, nausea, vomiting. Patient is supposed to go to dialysis today. Could not do it because of the lethargy. Patient is DNR. Related Data Home Medications Medication Instructions Recorded Confirmed atorvastatin 40 mg tablet 40 mg PO HS 12/11/19 09/08/23 finasteride 5 mg tablet 5 mg PO HS 10/02/20 09/08/23 citalopram 20 mg tablet 20 mg PO DAILY 03/03/23 09/08/23 sevelamer carbonate 800 mg tablet 800 mg PO TID 03/03/23 09/08/23 acetaminophen 500 mg tablet 500 mg PO Q6H PRN Pain 1-6 09/08/23 09/08/23 apixaban 5 mg tablet (Eliquis) 5 mg PO BID 09/08/23 09/08/23 aspirin 81 mg tablet 81 mg PO DAILY 09/08/23 09/08/23 baclofen 5 mg tablet 5 mg PO BID 09/08/23 09/08/23 epoetin albert-epbx 3,000 unit/mL 3,000 unit subcut 3XW anemia 09/08/23 09/08/23 injection solution (Retacrit) miconazole nitrate 2 % topical 1 applic topical BID 09/08/23 09/08/23 cream potassium chloride 20 mEq 20 meq PO BID 09/08/23 09/08/23 tablet,extended release pramipexole 0.5 mg tablet (Mirapex) 0.5 mg PO BID 09/08/23 09/08/23 sennosides 8.6 mg-docusate sodium 1 tab-cap PO BID 09/08/23 09/08/23 50 mg tablet tramadol 50 mg tablet 50 mg PO Q8H PRN Pain 4-10 09/08/23 09/08/23 midodrine 10 mg tablet 20 mg PO TID 09/09/23 09/09/23 Allergies Allergy/AdvReac Type Severity Reaction Status Date / Time morphine Allergy Mild TREMORS Verified 05/27/23 08:54 Review of Systems Review of Systems: All systems reviewed & are unremarkable except as noted in HPI and below PMFSH Past Medical History Medical History Atrial fibrillation AV fistula 3 attempts BPH (benign prostatic hyperplasia) Depression with anxiety DM2 (diabetes mellitus, type 2) ESRD (end stage renal disease) on dialysis HLD (hyperlipidemia) HTN (hypertension) Obstructive sleep apnea Seizure disorder Surgical History Surgical History H/O carpal tunnel repair H/O cataract extraction H/O cystoscopy H/O eye surgery H/O four vessel coronary artery bypass graft H/O heart artery stent X3 H/O shoulder surgery Left shoulder History of back surgery X3 History of bladder surgery History of parathyroid surgery Hx of nephrostomy Many years ago S/P cubital tunnel release Family History Family History Father No problems noted. Sibling Hypertension Cancer Grandparent Hypertension Diabetes mellitus Mother Ovarian cancer Sibling Cancer Social History Social History Social History: The patient has 5 children in the last child has Down syndrome. That child lives with him and his . 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 Code status full code Smoking status: Never smoker Alcohol intake: never Substance use: never Lack of Transportation: No Lack of Food: Sometimes True Current Housing: I Have Housing Concerned About Future Housing: No Difficulty Paying Gas/Electric Bills: YES Difficulty Paying for Meds: YES Currently Unemployed: No Education: High School Diploma/GED Difficulty w/ Childcare or Family Care: YES Spiritual care concerns: No
[2023-10-19 12:23] LABS: INR 2.3; Prothrombin Time 27.2 Seconds (11.1-14.7)
[2023-10-19 12:24] LABS: Partial Thromboplastin Time 42.1 SECONDS (22.3-36.8)
[2023-10-19 13:17] LABS: Alanine Aminotransferase 15 U/L (6-50); Albumin Level 3.2 g/dL (3.5-5.1); Alkaline Phosphatase 100 U/L (38-126); Anion Gap 12 mmol/L (8-16); Aspartate Amino Transferase 34 U/L (17-59); Bilirubin,Total 0.7 mg/dL (0.2-1.3); Blood Urea Nitrogen 30 mg/dL (9-20); Calcium 8.5 mg/dL (8.4-10.2); Carbon Dioxide 30 mmol/L (22-30); Chloride 96 mmol/L (98-107); Estimated CRCL calculation 17 ml/min; Estimated Glomerular Filt Rate 14; Glucose 75 mg/dL (65-110); Potassium 2.4 mmol/L (3.4-5.0); Sodium 138 mmol/L (137-145)
[2023-10-19] MEDS: POTASSIUM CHLORIDE INJ 40 MEQ in SODIUM CHLORIDE 0.9% IV 500 ML 130 MEQ IVPB (13:52)
[2023-10-19 14:18] LABS: Appearance Urine Turbid (Clear); Bacteria Urine None Seen /hpf; Bilirubin Urine Negative (Negative); Blood Urine 3+ (Negative); Color Urine Dark Yellow (Yellow); Glucose Urine UA Negative (Negative); Ketones Urine Trace mg/dL (Negative); Leukocyte Esterase Ur 2+ LEU/UL (Negative); Need Manual Microscopic Reviewed; Nitrate Urine Negative (Negative); Non Pathogenic Casts 0-2; Protein Urine 2+ mg/dL (Negative); RBC Urine >100 /hpf (0-2); Specific Grav Ur 1.016 (1.001-1.035); Squamous Epithelial Cell Urine Few /hpf (Few); Urobilinogen Urine 0.2 mg/dL (<2.0)
[2023-10-19 14:22] LABS: Add Urine Microscopic? YES
[2023-10-19] MEDS: POTASSIUM CHLORIDE 20 MEQ ER TABLET 40 MEQ PO (14:42)
--- NOTE | 2023-10-19 17:04 | ADMGEN ---
This patient, Erma Harmon, was admitted to 3 [facility] Surg Room 315-01. Patient/family oriented to hospital policies and general routines including ID bracelet, bed and alarms, visiting hours, pain management, procedures, bathroom and other care routines, personal items, smoking policy, room service/diet, and visiting hours. Information on how to activate the Rapid Response Team has been discussed. Patient/Family are encouraged to report perceived risks to care and to ask questions if they do not understand what they are told or what they should do.
--- NOTE | 2023-10-19 20:20 | PM.IMHP ---
H&P: HPI History of Present Illness Date/Time: 10/19/23 20:20 Chief Complaint: AMS Narrative: THIS IS A 73-YEAR-OLD MALE WITH PAST MEDICAL HISTORY SIGNIFICANT FOR END-STAGE RENAL DISEASE ON HEMODIALYSIS, PATIENT WAS BROUGHT TO THE EMERGENCY ROOM FOR EVALUATION DUE TO CONCERNS FOR ALTERED MENTAL STATUS ACCORDING TO . AT THE TIME OF MY VISIT PATIENT WAS UNABLE TO PROVIDE ANY HISTORY DUE TO DELIRIUM. PRELIMINARY WORKUP WAS SIGNIFICANT FOR URINALYSIS WITH NUMEROUS WBCS PRESENT, POTASSIUM 2.8. EXAMINATION: CT BRAIN W/O DATE: 10/19/2023 12:40 INDICATION: Altered mental status TECHNIQUE: Computed tomography (CT) of the head was performed without intravenous contrast. The dose-length product was 605.33 mGy-cm. Automated exposure control and iterative reconstruction technique were employed. COMPARISON: CT dated 09/09/2023 FINDINGS: Normal brain parenchymal volume for age. Normal whitney-white differentiation. No acute intracranial hemorrhage, infarction, mass or mass effect. There are scattered mild periventricular and subcortical white matter changes, most likely related to small vessel ischemic disease (microangiopathy). There is intracranial atherosclerosis. No ventriculomegaly or midline shift. Midline sagittal images demonstrate a normal corpus callosum, craniovertebral junction and sella turcica. Basilar cisterns are patent. Paranasal sinuses and mastoids are pneumatized. No depressed skull fractures. IMPRESSION: 1. No acute intracranial abnormality. EXAMINATION:? XR chest 1V portable Exam Date/Time:? 10/19/2023 18:15 ADVERTISING CLERK HISTORY: SY CATH IN CHEST ? Comparison:? 09/21/2023. RESULT: Lines, tubes, and devices:? New right IJ central line, terminating in the upper superior vena cava. Intact sternotomy wires Lungs and pleura:? Linear interface in the right apex, with the appearance of a skin fold rather than a pleural line. Alignment is crowding. Linear bibasilar opacities. Cardiomediastinal silhouette:? Stable. Other:? No acute osseous or upper abdominal finding. ? IMPRESSION: Presumed skinfold simulating a small right apical pneumothorax. Consider repeat imaging in the upright position. Right IJ central line terminating in the upper SVC. EXAMINATION:? XR chest 1V portable Exam Date/Time:? 10/19/2023 19:10 ADVERTISING CLERK HISTORY: R/O PNEUMO ? Comparison:? Same date at 6:25 PM. RESULT: Lines, tubes, and devices:? Right IJ central line in stable position. Stable intact sternotomy wires. Lungs and pleura:? No pneumothorax. Persistent linear bibasilar atelectasis/scar and low volumes. Cardiomediastinal silhouette:? Stable. Other:? No acute osseous or upper abdominal finding. ? IMPRESSION: No acute cardiopulmonary process. The prior radiograph findings were likely related to artifact from a skin fold. Review of Systems Review of Systems: ROS unobtainable: Yes unobtainable due to mental status (confusion/delirium) [facility] Past Medical History Medical History Atrial fibrillation AV fistula 3 attempts BPH (benign prostatic hyperplasia) Depression with anxiety DM2 (diabetes mellitus, type 2) ESRD (end stage renal disease) on dialysis HLD (hyperlipidemia) HTN (hypertension) Obstructive sleep apnea Seizure disorder Surgical History Surgical History H/O carpal tunnel repair H/O cataract extraction H/O cystoscopy H/O eye surgery H/O four vessel coronary artery bypass graft H/O heart artery stent X3 H/O shoulder surgery Left shoulder History of back surgery X3 History of bladder surgery History of parathyroid surgery Hx of nephrostomy Many years ago S/P cubital tunnel release Family History Family History Father No problems noted. Sibling Hypertension Cancer Grandparent Hypertension Diabetes mellitus Mother Ovarian cancer
[2023-10-19 21:07] LABS: Glucose Point of Care 91 mg/dl (65-105)
[2023-10-20] VITALS (20 sets, daily range): BP systolic 104–161; BP diastolic 36–89; PULSE 67–123; RESP 13–18; TEMP 36.2–37; O2SAT 92–97; BMI 22.7
[2023-10-20 06:59] LABS: Basophils Absolute Auto 0.1 K/mm3 (0.0-0.1); Basophils Percent Auto 1.4 % (0.2-1.2); Eosinophils Absolute Auto 0.2 K/mm3 (0-0.3); Eosinophils Percent Auto 2.7 % (0-4.4); Hematocrit 30.9 % (42.0-52.0); Hemoglobin 9.9 g/dL (14.0-18.0); Immature Granulocyte Absolute 0.04 K/mm3 (0.00-0.031); Immature Granulocyte Percent A 0.6 % (0-0.5); Lymphocytes Absolute Auto 2.01 K/mm3 (0.9-3.2); Lymphocytes Percent Auto 28.6 % (18.3-44.2); Mean Corpuscular Hemoglobin 32.6 pg (26-34); Mean Corpuscular Volume 101.6 fl (80-100); Mean Platelet Volume 9.4 fl (7.4-10.4); Monocytes Absolute Auto 0.8 K/mm3 (0.1-0.6); Neutrophils Absolute Auto 3.9 K/mm3 (1.3-6.7); Neutrophils Percent Auto 55.7 % (45.5-73.1); Platelet Count Result 187 k/mm3 (150-375); Red Blood Count 3.04 M/mm3 (4.6-6.20); Red Cell Distribution Width 17.4 % (11.5-14.5)
[2023-10-20 07:15] LABS: Alanine Aminotransferase 15 U/L (6-50); Alkaline Phosphatase 93 U/L (38-126); Anion Gap 10 mmol/L (8-16); Aspartate Amino Transferase 32 U/L (17-59); Bilirubin,Total 0.7 mg/dL (0.2-1.3); Blood Urea Nitrogen 37 mg/dL (9-20); Calcium 8.5 mg/dL (8.4-10.2); Carbon Dioxide 28 mmol/L (22-30); Chloride 102 mmol/L (98-107); Estimated CRCL calculation 14 ml/min; Estimated Glomerular Filt Rate 11; Glucose 63 mg/dL (65-110); Phosphorus 4.5 mg/dL (2.5-4.5); Potassium 3.2 mmol/L (3.4-5.0); Sodium 140 mmol/L (137-145)
[2023-10-20 09:06] LABS: Hepatitis B Surface Antigen Negative (Negative)
[2023-10-20 09:24] LABS: Hepatitis B Surface Anti Res Negative
[2023-10-20] MEDS: PRAMIPEXOLE 0.5 MG TABLET PO ×2 (09:29→16:38)
[2023-10-20] MEDS: POTASSIUM CHLORIDE 20 MEQ ER TABLET 40 MEQ PO ×2 (09:29→16:38)
[2023-10-20] MEDS: SEVELAMER CARBONATE 800 MG TABLET PO ×3 (09:29→16:38)
[2023-10-20] MEDS: ASPIRIN 81 MG ENTERIC TABLET PO (09:29)
[2023-10-20] MEDS: APIXABAN 5 MG TABLET PO ×2 (09:29→20:39)
[2023-10-20] MEDS: calcitrioL 0.25 MCG CAPSULE PO (09:29)
[2023-10-20] MEDS: MIDODRINE HCL 10 MG TABLET 20 MG PO ×3 (09:29→16:38)
[2023-10-20] MEDS: DRONEDARONE HCL 400 MG TABLET PO ×2 (09:30→20:36)
--- NOTE | 2023-10-20 10:32 | PM.CNNEP ---
Assessment and Plan Assessment and plan (1) End stage renal disease: Code(s): N18.6 - End stage renal disease Status: Chronic Assessment and Plan: HD today resume outpatient schedule of M/W/F tomorrow follow electrolytes, volume status, and clearance (2) Altered mental status: Code(s): R41.82 - Altered mental status, unspecified Status: Acute Assessment and Plan: has baseline confusion worse due to infection (possible UTI) follow mentation (3) Acute hypokalemia: Code(s): E87.6 - Hypokalemia Status: Acute Assessment and Plan: related to poor oral nutrition/oral intake replace as needed liberalize diet adjust potassium bath with dialysis (4) Urinary tract infection: Code(s): N39.0 - Urinary tract infection, site not specified Status: Acute Assessment and Plan: admission UA suggestive does have some residual renal function with urine production follow-up on urine culture HOWEVER, was on outpatient IV antibiotics already (IV cefepime with HD) (5) Discitis of lumbar region: Code(s): M46.46 - Discitis, unspecified, lumbar region Status: Chronic Assessment and Plan: evaluated at [facility] on previous hospitalization on outpatient antibiotic therapy (IV cefepime with outpatient dialysis) (6) Atrial fibrillation: Code(s): I48.91 - Unspecified atrial fibrillation Status: Chronic Assessment and Plan: rate control strategy already on anticoagulation (7) Anemia: Code(s): D64.9 - Anemia, unspecified Status: Chronic Assessment and Plan: due to ESRD and acute illness Epogen with HD follow trend of H/H (8) HTN (hypertension): Code(s): I10 - Essential (primary) hypertension Status: Chronic Assessment and Plan: reasonable control follow trend of hemodynaics (9) DM2 (diabetes mellitus, type 2): Code(s): E11.9 - Type 2 diabetes mellitus without complications Status: Chronic Assessment and Plan: follow accu-cheks glycemic control per hospitalists I will continue to follow the patient with you while he remains hospitalized and make further recommendations as deemed necessary. Thank you for allowing me to participate in the care of this patient. History of Present Illness Reason for Consult Consult date: 10/20/23 Reason for consult: end stage renal disease Chief Complaint Chief complaint: weakness,urinary tract infection,hypokalemia,hemod History of Present Illness Narrative: Most of the information that I have obtained is from review of the electronic medical record as well as discussion with the ER physician yesterday evening as the patient is unable to provide me with any history as to the reason for his presentation to the hospital due to his altered mental status /confusion. The patient is a 73-year-old male with an extensive past medical history as outlined below who was transferred to [facility] Emergency room from his nursing facility for further evaluation of lethargy and confusion.The patient himself does not have any acute complaints voiced other than pain associated with some of his bedsores. He reports no fevers, chills nausea or vomiting. It should be noted that the patient has some baseline confusion so his unclear how much more confused / lethargic he was in comparison to baseline that led to his transfer to the ER. Workup and evaluation in the emergency room demonstrated the patient to be hemodynamically stable and in no acute distress. Routine blood work demonstrated labs consistent with his known history of end-stage renal disease although he was noted to be quite hypokalemic with a potassium of 2.8 his urinalysis was somewhat suggestive of a possible urinary tract infection as well. Given these laboratory findings in conjunction with his complex medical history as well as his altered mental status
--- NOTE | 2023-10-20 10:32 | P.CONNP_ITS ---
Assessment and Plan Assessment and plan (1) End stage renal disease: Code(s): N18.6 - End stage renal disease Status: Chronic Assessment and Plan: * HD today * resume outpatient schedule of M// tomorrow * follow electrolytes, volume status, and clearance (2) Altered mental status: Code(s): R41.82 - Altered mental status, unspecified Status: Acute Assessment and Plan: * has baseline confusion * worse due to infection (possible UTI) * follow mentation (3) Acute hypokalemia: Code(s): E87.6 - Hypokalemia Status: Acute Assessment and Plan: * related to poor oral nutrition/oral intake * replace as needed * liberalize diet * adjust potassium bath with dialysis (4) Urinary tract infection: Code(s): N39.0 - Urinary tract infection, site not specified Status: Acute Assessment and Plan: * admission UA suggestive * does have some residual renal function with urine production * follow-up on urine culture * HOWEVER, was on outpatient IV antibiotics already (IV cefepime with HD) (5) Discitis of lumbar region: Code(s): M46.46 - Discitis, unspecified, lumbar region Status: Chronic Assessment and Plan: * evaluated at [facility] on previous hospitalization * on outpatient antibiotic therapy (IV cefepime with outpatient dialysis) (6) Atrial fibrillation: Code(s): I48.91 - Unspecified atrial fibrillation Status: Chronic Assessment and Plan: * rate control strategy * already on anticoagulation (7) Anemia: Code(s): D64.9 - Anemia, unspecified Status: Chronic Assessment and Plan: * due to ESRD and acute illness * Epogen with HD * follow trend of H/H (8) HTN (hypertension): Code(s): I10 - Essential (primary) hypertension Status: Chronic Assessment and Plan: * reasonable control * follow trend of hemodynaics (9) DM2 (diabetes mellitus, type 2): Code(s): E11.9 - Type 2 diabetes mellitus without complications Status: Chronic Assessment and Plan: * follow accu-cheks * glycemic control per hospitalists I will continue to follow the patient with you while he remains hospitalized and make further recommendations as deemed necessary. Thank you for allowing me to participate in the care of this patient. History of Present Illness Reason for Consult Consult date: 10/20/23 Reason for consult: end stage renal disease Chief Complaint Chief complaint: weakness,urinary tract infection,hypokalemia,hemod History of Present Illness Narrative: Most of the information that I have obtained is from review of the electronic medical record as well as discussion with the ER physician yesterday evening as the patient is unable to provide me with any history as to the reason for his presentation to the hospital due to his altered mental status /confusion. The patient is a 73-year-old male with an extensive past medical history as outlined below who was transferred to [facility] Emergency room from his nursing facility for further evaluation of lethargy and confusion.The patient himself does not have any acute complaints voiced other than pain associated with some of his bedsores. He reports no fevers, chills nausea or vomiting. It should be noted that the patient has some baseline confusion so his unclear how much more confused / lethargic he was in comparison to baseline that led to his transfer to the ER. Workup and evaluation in the emergency room demonstrated
--- NOTE | 2023-10-20 15:50 | PM.IMPN ---
Progress Note: A&P Assessment and Plan (1) Urinary tract infection: Code(s): N39.0 - Urinary tract infection, site not specified Status: Acute Assessment and Plan: Rocephin, UA culture pending (2) Acute hypokalemia: Code(s): E87.6 - Hypokalemia Status: Acute Assessment and Plan: 3.2 this am, will replace as needed and trend labs (3) Weakness: Code(s): R53.1 - Weakness Status: Acute Assessment and Plan: likely due to chronic illness and secondary UTI infection (4) CAD (coronary artery disease): Code(s): I25.10 - Atherosclerotic heart disease of [place] coronary artery without angina pectoris Status: Chronic (5) Altered mental status: Code(s): R41.82 - Altered mental status, unspecified Status: Acute Assessment and Plan: CT brain negative for acute process CXR negative likely due to UTI BC pending (6) ESRD (end stage renal disease) on dialysis: Code(s): N18.6 - End stage renal disease; Z99.2 - Dependence on renal dialysis Status: Chronic Assessment and Plan: nephrology consulted for hemodialysis needs (7) DM2 (diabetes mellitus, type 2): Code(s): E11.9 - Type 2 diabetes mellitus without complications Status: Chronic Assessment and Plan: insulin, accuchecks, hypoglycemic protocol (8) Atrial fibrillation: Code(s): I48.91 - Unspecified atrial fibrillation Status: Chronic Assessment and Plan: rate controlled, anticoagulated Subjective Date/time seen: 10/20/23 15:50 Interval history: Patient is alert and oriented to himself and the year this morning, but did not know he was here at [place]. He is in no acute stress this morning, but appears chronically ill. He is a poor historian, unsure of his mental status baseline. He denies pain this am. Nephrology consulted for his ESRD. Will continue to monitor response to Rocephin and hypokalemia. Review of Systems Review of Systems: ROS unobtainable: Yes unobtainable due to mental status (confusion/delirium) Exam Const: General: comfortable, no acute distress, alert, awake, ill appearing acutely and average body habitus Nutritional Appearance: average body habitus Orientation/consciousness: oriented to person HENMT: Head: normal to inspection, normocephalic and atraumatic Mouth: Yes moist mucous membranes Eyes: General: appearance normal, both eyes and all related structures Pupils: Equal, round and reactive pupils present EOM: EOMs intact bilaterally Neck: Neck: full ROM, no lymphadenopathy and no JVD Thyroid: thyroid normal Lymphatic: no lymphadenopathy noted Resp: Effort & Inspection: normal respiratory effort and able to speak in complete sentences Auscultation: clear to auscultation bilaterally Cardio: Jugular venous distension: no JVD Rate: regular rate Rhythm: regular rhythm Heart sounds: S1 normal heart sound present and S2 normal heart sound present GI: Inspection: distended, no visible herniation, no visible pulsation and No visible peristalsis Auscultation: Hyperactive bowel sounds present Skin: Rashes: no rashes Wounds: no wounds Neuro: General: oriented to person and Unable to assess gait Cognition (Neuro): abnormal cognition (DELIRIUM/CONFUSION) Other: right leg below the knee amputation. Extrem: General: normal exam except as noted and no pedal edema Psych: Affect: normal affect Objective Data Vital Signs Vital Signs: Vital Signs - 24 hr 10/19/23 16:00 10/19/23 16:01 10/19/23 16:15 Temperature Pulse Rate 99 97 94 Respiratory Rate 21 H 21 H 24 H Blood Pressure 102/67 Pulse Oximetry Oxygen Delivery 10/19/23 16:16 10/19/23 16:30 10/19/23 16:31 Temperature Pulse Rate 97 96 95 Respiratory Rate 23 H 17 23 H Blood Pressure 105/68 96/56 L Pulse Oximetry Oxygen Delivery 10/19/23 17:10 10/19/23 21:53 10/19/23 20:00 Temperature 98 F 97
[2023-10-20 17:30] LABS: Glucose Point of Care 81 mg/dl (65-105)
[2023-10-20] MEDS: CEFEPIME 1 GM/NS 50 ML 1 GM/50 ML BAG IVPB (17:42)
[2023-10-20] MEDS: PREGABALIN (*CRX) 50 MG CAPSULE PO (20:39)
[2023-10-20 21:13] LABS: Glucose Point of Care 83 mg/dl (65-105)
[2023-10-21] VITALS (23 sets, daily range): BP systolic 90–141; BP diastolic 30–77; PULSE 92–128; RESP 14–20; TEMP 36.1–37.2; O2SAT 79–98
[2023-10-21 06:06] LABS: Alveolar/Arterial O2 Gradient 92.4 mmHg; Base Excess ABG 1.4 mEq/l (+/-2.0); Carboxyhemoglobin 0.3 % THb (0-2.0); Fractional Inspired Oxygen 28 %; HCO3 ABG 24.8 mEq/l (22.0-26.0); Oxygen Content ABG 14.1 %vol (16.0-22.0); Oxygen Saturation ABG 94.5 % (95.0-100.0); PCO2 ABG 34.4 mmHg (35.0-45.0); PO2 ABG 66.7 mmHg (80.0-100.0); PO2 FiO2 Ratio Arterial Blood 2.38 %; Reduced Hemoglobin 7.7 %THb (0-5.0); Total Hemoglobin 10.9 g/dL (12.0-18.0); pH ABG 7.475 (7.350-7.450)
[2023-10-21 06:08] LABS: Modified Allen's Test Pass; Site Drawn RIGHT RADIAL
[2023-10-21 06:09] LABS: Device NASAL CANNULA
[2023-10-21 07:08] LABS: Basophils Absolute Auto 0.1 K/mm3 (0.0-0.1); Basophils Percent Auto 1.1 % (0.2-1.2); Eosinophils Absolute Auto 0.1 K/mm3 (0-0.3); Eosinophils Percent Auto 0.9 % (0-4.4); Hematocrit 33.3 % (42.0-52.0); Hemoglobin 10.3 g/dL (14.0-18.0); Immature Granulocyte Absolute 0.05 K/mm3 (0.00-0.031); Immature Granulocyte Percent A 0.6 % (0-0.5); Lymphocytes Absolute Auto 1.57 K/mm3 (0.9-3.2); Lymphocytes Percent Auto 18.6 % (18.3-44.2); Mean Corpuscular HGB Conc 30.9 g/dl (32-36); Mean Corpuscular Hemoglobin 32.9 pg (26-34); Mean Corpuscular Volume 106.4 fl (80-100); Mean Platelet Volume 9.6 fl (7.4-10.4); Monocytes Absolute Auto 0.8 K/mm3 (0.1-0.6); Monocytes Percent Auto 9.3 % (2.6-8.5); Neutrophils Absolute Auto 5.9 K/mm3 (1.3-6.7); Neutrophils Percent Auto 69.5 % (45.5-73.1); Platelet Count Result 199 k/mm3 (150-375); Red Blood Count 3.13 M/mm3 (4.6-6.20); Red Cell Distribution Width 17.9 % (11.5-14.5); White Blood Count 8.5 K/mm3 (4.5-10.0)
[2023-10-21 07:21] LABS: Albumin Level 3.2 g/dL (3.5-5.1); Anion Gap 12 mmol/L (8-16); Blood Urea Nitrogen 21 mg/dL (9-20); Calcium 8.6 mg/dL (8.4-10.2); Carbon Dioxide 24 mmol/L (22-30); Chloride 106 mmol/L (98-107); Estimated CRCL calculation 22 ml/min; Estimated Glomerular Filt Rate 19; Glucose 73 mg/dL (65-110); Phosphorus 3.6 mg/dL (2.5-4.5); Potassium 4.3 mmol/L (3.4-5.0); Sodium 142 mmol/L (137-145)
[2023-10-21 08:19] LABS: Burr Cells 1+ (NORMAL); Platelet Estimate Adequate (Adequate); Poikilocytosis 1+ (NORMAL); Schistocytes None Seen (NORMAL)
[2023-10-21 08:20] LABS: Glucose Point of Care 70 mg/dl (65-105)
[2023-10-21] MEDS: calcitrioL 0.25 MCG CAPSULE PO (09:21)
[2023-10-21] MEDS: PRAMIPEXOLE 0.5 MG TABLET PO ×2 (09:21→18:10)
[2023-10-21] MEDS: MIDODRINE HCL 10 MG TABLET 20 MG PO ×3 (09:21→18:11)
[2023-10-21] MEDS: POTASSIUM CHLORIDE 20 MEQ ER TABLET 40 MEQ PO ×2 (09:21→18:10)
[2023-10-21] MEDS: SEVELAMER CARBONATE 800 MG TABLET PO ×3 (09:21→18:10)
[2023-10-21] MEDS: APIXABAN 5 MG TABLET PO ×2 (09:21→20:56)
[2023-10-21] MEDS: DRONEDARONE HCL 400 MG TABLET PO ×2 (09:21→20:56)
[2023-10-21] MEDS: ASPIRIN 81 MG ENTERIC TABLET PO (09:22)
--- NOTE | 2023-10-21 09:37 | PCPTNOTE ---
Addendum entered by Lara Giordano, PT 10/21/23 10:04: Spoke with Hospitalist, Kiah Macdonald APRN, in person regarding Bedrest orders. Hospitalist OK removal of bedrest orders. RN aware. Original Note: Pt has active bedrest orders - attempted to contact hospitalist regarding bedrest orders, but hospitalist did not answer.
--- NOTE | 2023-10-21 10:30 | P.PNNP_ITS ---
Progress Note: A&P Assessment and Plan (1) End stage renal disease: Code(s): N18.6 - End stage renal disease Status: Chronic Assessment and Plan: * HD today * continue outpatient schedule of M/W/F dialysis * follow electrolytes, volume status, and clearance (2) Altered mental status: Code(s): R41.82 - Altered mental status, unspecified Status: Acute Assessment and Plan: * has baseline confusion * worse due to infection (?) versus fluctuations in baseline confusion? * follow mentation (3) Acute hypokalemia: Code(s): E87.6 - Hypokalemia Status: Acute Assessment and Plan: * related to poor oral nutrition/oral intake * replace as needed * liberalized diet * adjust potassium bath with dialysis (4) Urinary tract infection: Code(s): N39.0 - Urinary tract infection, site not specified Status: Acute Assessment and Plan: * admission UA suggestive * does have some residual renal function with urine production * follow-up on urine culture - no growth to date * HOWEVER, was on outpatient IV antibiotics already (IV cefepime with HD) (5) Discitis of lumbar region: Code(s): M46.46 - Discitis, unspecified, lumbar region Status: Chronic Assessment and Plan: * evaluated at [facility] on previous hospitalization * on outpatient antibiotic therapy (IV cefepime with outpatient dialysis) (6) Atrial fibrillation: Code(s): I48.91 - Unspecified atrial fibrillation Status: Chronic Assessment and Plan: * rate control strategy * already on anticoagulation (7) Anemia: Code(s): D64.9 - Anemia, unspecified Status: Chronic Assessment and Plan: * due to ESRD and acute illness * Epogen with HD * follow trend of H/H (8) HTN (hypertension): Code(s): I10 - Essential (primary) hypertension Status: Chronic Assessment and Plan: * reasonable control * follow trend of hemodynaics (9) DM2 (diabetes mellitus, type 2): Code(s): E11.9 - Type 2 diabetes mellitus without complications Status: Chronic Assessment and Plan: * follow accu-cheks * glycemic control per hospitalists Will continue to follow. Subjective Date/time seen: 10/21/23 10:30 Interval history: Follow-up for end stage renal disease on hemodialysis. Tolerating dialysis treatment at the time of my visit (seen on HD at 10:20AM); tolerated dialysis treatment yesterday without any issue or problems; mentation seems about the same; no other issues/events overnight or earlier this AM. Exam Narrative: General: somewhat chronically ill appearing male in NAD Heart: normal S1 and S2; no rub Lungs: clear bilaterally Abdomen: soft, nontender, positive bowel sounds Extremities: no cyanosis or clubbing; s/p right AKA Skin: warm and dry Objective Data Vital Signs Vital Signs: Vital Signs Temp Pulse Resp BP Pulse Ox O2 Del Method O2 Flow Rate 10/21/23 10:30 99 95/41 L 10/21/23 10:15 106 H 106/50 L 10/21/23 10:00 106 H 109/65 10/21/23 10:45 98 101/48 L 10/21/23 09:58 92 98/47 L 10/21/23 09:58 3 10/21/23 09:47 98 F 107 H 14 106/68 10/21/23 06:00 96.9 F L 110 H 14 106/65 90 10/20/23 20:00 Room Air
--- NOTE | 2023-10-21 10:30 | PM.PNNEP ---
Progress Note: A&P Assessment and Plan (1) End stage renal disease: Code(s): N18.6 - End stage renal disease Status: Chronic Assessment and Plan: HD today continue outpatient schedule of M/W/F dialysis follow electrolytes, volume status, and clearance (2) Altered mental status: Code(s): R41.82 - Altered mental status, unspecified Status: Acute Assessment and Plan: has baseline confusion worse due to infection (?) versus fluctuations in baseline confusion? follow mentation (3) Acute hypokalemia: Code(s): E87.6 - Hypokalemia Status: Acute Assessment and Plan: related to poor oral nutrition/oral intake replace as needed liberalized diet adjust potassium bath with dialysis (4) Urinary tract infection: Code(s): N39.0 - Urinary tract infection, site not specified Status: Acute Assessment and Plan: admission UA suggestive does have some residual renal function with urine production follow-up on urine culture - no growth to date HOWEVER, was on outpatient IV antibiotics already (IV cefepime with HD) (5) Discitis of lumbar region: Code(s): M46.46 - Discitis, unspecified, lumbar region Status: Chronic Assessment and Plan: evaluated at [facility] on previous hospitalization on outpatient antibiotic therapy (IV cefepime with outpatient dialysis) (6) Atrial fibrillation: Code(s): I48.91 - Unspecified atrial fibrillation Status: Chronic Assessment and Plan: rate control strategy already on anticoagulation (7) Anemia: Code(s): D64.9 - Anemia, unspecified Status: Chronic Assessment and Plan: due to ESRD and acute illness Epogen with HD follow trend of H/H (8) HTN (hypertension): Code(s): I10 - Essential (primary) hypertension Status: Chronic Assessment and Plan: reasonable control follow trend of hemodynaics (9) DM2 (diabetes mellitus, type 2): Code(s): E11.9 - Type 2 diabetes mellitus without complications Status: Chronic Assessment and Plan: follow accu-cheks glycemic control per hospitalists Will continue to follow. Subjective Date/time seen: 10/21/23 10:30 Interval history: Follow-up for end stage renal disease on hemodialysis. Tolerating dialysis treatment at the time of my visit (seen on HD at 10:20AM); tolerated dialysis treatment yesterday without any issue or problems; mentation seems about the same; no other issues/events overnight or earlier this AM. Exam Narrative: General: somewhat chronically ill appearing male in NAD Heart: normal S1 and S2; no rub Lungs: clear bilaterally Abdomen: soft, nontender, positive bowel sounds Extremities: no cyanosis or clubbing; s/p right AKA Skin: warm and dry Objective Data Vital Signs Vital Signs: Vital Signs Temp Pulse Resp BP Pulse Ox O2 Del Method O2 Flow Rate 10/21/23 10:30 99 95/41 L 10/21/23 10:15 106 H 106/50 L 10/21/23 10:00 106 H 109/65 10/21/23 10:45 98 101/48 L 10/21/23 09:58 92 98/47 L 10/21/23 09:58 3 10/21/23 09:47 98 F 107 H 14 106/68 10/21/23 06:00 96.9 F L 110 H 14 106/65 90 10/20/23 20:00 Room Air 10/20/23 21:32 97.1 F L 83 13 116/89 93 10/20/23 20:36 83 10/20/23 13:04 99 139/64 10/20/23 13:00 89 133/60 10/20/23 13:33 97.4 F L 89 18 161/81 H 10/20/23 12:45 77 131/36 L 10/20/23 14:00 97.3 F L 67 18 113/84 97 10/20/23 12:30 119 H 112/62 10/20/23 12:15 103 H 105/49 L Intake/Output Intake/Output: Intake & Output 10/18/23 10/19/23 10/20/23 10/21/23 23:59 23:59 23:59 23:59 Intake Total 650 1028 618 Output Total 100 0 Balance 550 1028 618 Meds/Results Medications: Active Medications Generic Name Dose Route Start Last Admin Trade Name Freq PRN Reason Sto
[2023-10-21] MEDS: EPOETIN ALFA-EPBX 4,000 UNITS/ML VIAL 4000 UNITS IV PUSH (10:52)
[2023-10-21 12:28] LABS: Glucose Point of Care 86 mg/dl (65-105)
--- NOTE | 2023-10-21 13:44 | PM.IMPN ---
Progress Note: A&P Assessment and Plan (1) Urinary tract infection: Code(s): N39.0 - Urinary tract infection, site not specified Status: Acute Assessment and Plan: Rocephin, UA culture pending (2) Acute hypokalemia: Code(s): E87.6 - Hypokalemia Status: Acute Assessment and Plan: 4.2 this am, will replace as needed and trend labs (3) Weakness: Code(s): R53.1 - Weakness Status: Acute Assessment and Plan: likely due to chronic illness and secondary UTI infection PT/OT ordered to continue working with him inpatient (4) CAD (coronary artery disease): Code(s): I25.10 - Atherosclerotic heart disease of [place] coronary artery without angina pectoris Status: Chronic (5) Altered mental status: Code(s): R41.82 - Altered mental status, unspecified Status: Acute Assessment and Plan: CT brain negative for acute process CXR negative likely due to UTI BC pending (6) ESRD (end stage renal disease) on dialysis: Code(s): N18.6 - End stage renal disease; Z99.2 - Dependence on renal dialysis Status: Chronic Assessment and Plan: nephrology consulted for hemodialysis needs receiving dialysis today (7) DM2 (diabetes mellitus, type 2): Code(s): E11.9 - Type 2 diabetes mellitus without complications Status: Chronic Assessment and Plan: insulin, accuchecks, hypoglycemic protocol (8) Atrial fibrillation: Code(s): I48.91 - Unspecified atrial fibrillation Status: Chronic Assessment and Plan: rate controlled, anticoagulated Subjective Date/time seen: 10/21/23 13:44 Interval history: Patient is alert and oriented this morning, getting ready to eat breakfast. He is in no acute stress this morning, but appears chronically ill. He is a poor historian, unsure of his mental status baseline. He denies pain this am. He will be going to hemodialysis this morning after breakfast. Nephrology consulted for his ESRD. Will continue to monitor response to Rocephin. PT/OT ordered to continue working with him while inpatient. Review of Systems Review of Systems: All systems reviewed & are unremarkable except as noted in HPI and below Exam Const: General: comfortable, no acute distress, alert, awake and ill appearing acutely Orientation/consciousness: oriented to person HENMT: Head: normal to inspection, normocephalic and atraumatic Mouth: Yes moist mucous membranes Eyes: General: appearance normal, both eyes and all related structures Pupils: Equal, round and reactive pupils present EOM: EOMs intact bilaterally Neck: Neck: no lymphadenopathy and no JVD Lymphatic: no lymphadenopathy noted Resp: Effort & Inspection: normal respiratory effort and able to speak in complete sentences Auscultation: clear to auscultation bilaterally Cardio: Jugular venous distension: no JVD Rate: regular rate Rhythm: regular rhythm Heart sounds: S1 normal heart sound present and S2 normal heart sound present GI: Inspection: distended, no visible herniation, no visible pulsation and No visible peristalsis Auscultation: Hyperactive bowel sounds present Skin: Rashes: no rashes Wounds: no wounds Neuro: General: oriented to person, moves all extremities, no focal motor deficits and Unable to assess gait Cranial nerves: Yes CN's II-XII intact bilaterally and Yes Equal, round and reactive pupils present Cognition (Neuro): abnormal cognition (DELIRIUM/CONFUSION) Speech: normal speech Gait exam (Neuro): Unable to assess gait Other: right leg below the knee amputation. Extrem: General: normal exam except as noted, no joint enlargement and no pedal edema Psych: Affect: normal affect Objective Data Vital Signs Vital Signs: Vital Signs - 24 hr 10/20/23 14:00 10/20/23 20:36 10/20/23 21:32 Temperature 97.3 F L 97.1 F L Pulse Rate 67 83 83 Respiratory Rate 18 13 Blood Pressure 113/84 116/89 P
[2023-10-21 16:23] LABS: Glucose Point of Care 99 mg/dl (65-105)
[2023-10-21] MEDS: CEFEPIME 1 GM/NS 50 ML 1 GM/50 ML BAG IVPB (17:31)
[2023-10-21] MEDS: ACETAMINOPHEN 325 MG TABLET 650 MG PO (20:55)
[2023-10-21] MEDS: PREGABALIN (*CRX) 50 MG CAPSULE PO (20:55)
[2023-10-21 20:58] LABS: Glucose Point of Care 108 mg/dl (65-105)
[2023-10-22] VITALS (7 sets, daily range): BP systolic 100–105; BP diastolic 57–74; PULSE 61–130; RESP 12–16; TEMP 36.1–36.3; O2SAT 95–100
[2023-10-22 07:35] LABS: Hematocrit 34.8 % (42.0-52.0); Hemoglobin 10.7 g/dL (14.0-18.0); Mean Corpuscular HGB Conc 30.7 g/dl (32-36); Mean Corpuscular Hemoglobin 32.9 pg (26-34); Mean Corpuscular Volume 107.1 fl (80-100); Mean Platelet Volume 9.5 fl (7.4-10.4); Platelet Count Result 202 k/mm3 (150-375); Red Blood Count 3.25 M/mm3 (4.6-6.20); Red Cell Distribution Width 17.7 % (11.5-14.5); White Blood Count 5.5 K/mm3 (4.5-10.0)
[2023-10-22 07:47] LABS: Albumin Level 3.3 g/dL (3.5-5.1); Anion Gap 9 mmol/L (8-16); Blood Urea Nitrogen 18 mg/dL (9-20); Carbon Dioxide 27 mmol/L (22-30); Chloride 106 mmol/L (98-107); Estimated CRCL calculation 27 ml/min; Estimated Glomerular Filt Rate 27; Glucose 72 mg/dL (65-110); Phosphorus 2.8 mg/dL (2.5-4.5); Potassium 4.1 mmol/L (3.4-5.0); Sodium 142 mmol/L (137-145)
[2023-10-22 08:07] LABS: Glucose Point of Care 75 mg/dl (65-105)
[2023-10-22] MEDS: MIDODRINE HCL 10 MG TABLET 20 MG PO ×3 (08:21→17:49)
[2023-10-22] MEDS: POTASSIUM CHLORIDE 20 MEQ ER TABLET 40 MEQ PO ×2 (08:22→17:49)
[2023-10-22] MEDS: DRONEDARONE HCL 400 MG TABLET PO ×2 (08:22→22:01)
[2023-10-22] MEDS: SEVELAMER CARBONATE 800 MG TABLET PO ×3 (08:22→17:48)
[2023-10-22] MEDS: ASPIRIN 81 MG ENTERIC TABLET PO (08:22)
[2023-10-22] MEDS: calcitrioL 0.25 MCG CAPSULE PO (08:30)
[2023-10-22] MEDS: APIXABAN 5 MG TABLET PO ×2 (08:30→22:01)
[2023-10-22] MEDS: PRAMIPEXOLE 0.5 MG TABLET PO ×2 (08:30→17:49)
[2023-10-22 11:35] LABS: Glucose Point of Care 136 mg/dl (65-105)
--- NOTE | 2023-10-22 14:37 | PM.IMPN ---
Progress Note: A&P Assessment and Plan (1) Urinary tract infection: Code(s): N39.0 - Urinary tract infection, site not specified Status: Resolved Assessment and Plan: Correction not on Rocephin, he has been on cefepime from previous provider continued on admission UA culture negative (2) Acute hypokalemia: Code(s): E87.6 - Hypokalemia Status: Acute Assessment and Plan: 4.1 this am, will replace as needed and trend labs (3) Weakness: Code(s): R53.1 - Weakness Status: Acute Assessment and Plan: likely due to chronic illness and secondary UTI infection PT/OT ordered to continue working with him inpatient (4) CAD (coronary artery disease): Code(s): I25.10 - Atherosclerotic heart disease of [place] coronary artery without angina pectoris Status: Chronic (5) Altered mental status: Code(s): R41.82 - Altered mental status, unspecified Status: Acute Assessment and Plan: CT brain negative for acute process CXR negative UA culture negative BC pending (6) ESRD (end stage renal disease) on dialysis: Code(s): N18.6 - End stage renal disease; Z99.2 - Dependence on renal dialysis Status: Chronic Assessment and Plan: nephrology following receiving dialysis M/W/F (7) DM2 (diabetes mellitus, type 2): Code(s): E11.9 - Type 2 diabetes mellitus without complications Status: Chronic Assessment and Plan: insulin, accuchecks, hypoglycemic protocol (8) Atrial fibrillation: Code(s): I48.91 - Unspecified atrial fibrillation Status: Chronic Assessment and Plan: rate controlled, anticoagulated Subjective Date/time seen: 10/22/23 14:37 Interval history: Patient is alert and oriented this morning. He is in no acute stress this morning, but appears chronically ill. He denies pain this am. He completed hemodialysis yesterday with no issues overnight. Nephrology following. Correction to previous charting he is NOT on Rocephin, he was admitted with continued cefepime from previous provider and has continued while inpatient here. His UA culture came back negative. PT/OT ordered to continue working with him while inpatient. Review of Systems Review of Systems: All systems reviewed & are unremarkable except as noted in HPI and below ROS unobtainable: Yes unobtainable due to mental status (confusion/delirium) Exam Const: General: comfortable, no acute distress, well developed, alert, awake, ill appearing acutely, average body habitus and other (DELIRIOUS) Nutritional Appearance: average body habitus Orientation/consciousness: oriented to person and patient oriented x3 HENMT: Head: normal to inspection, normocephalic and atraumatic Ears: hearing grossly normal bilaterally Face/Nose/Sinus: normal facial exam Face and sinus: normal facial exam Mouth: Yes moist mucous membranes Eyes: General: appearance normal, both eyes and all related structures Pupils: Equal, round and reactive pupils present EOM: EOMs intact bilaterally Neck: Neck: full ROM, no lymphadenopathy and no JVD Thyroid: thyroid normal Lymphatic: no lymphadenopathy noted Resp: Effort & Inspection: normal respiratory effort and able to speak in complete sentences Auscultation: clear to auscultation bilaterally Cardio: Jugular venous distension: no JVD Rate: regular rate Rhythm: regular rhythm Heart sounds: S1 normal heart sound present and S2 normal heart sound present GI: Inspection: distended, no visible herniation, no visible pulsation and No visible peristalsis Auscultation: Hyperactive bowel sounds present : General: Yes deferred Skin: Rashes: no rashes Wounds: no wounds Neuro: General: oriented to person, patient oriented x3, moves all extremities, no focal motor deficits, CN's II-XI intact bilaterally and Unable to assess gait Cranial nerves: Yes CN's II-XII intact bilaterally and Yes Equal, round and re
--- NOTE | 2023-10-22 15:33 | P.PNNP_ITS ---
Progress Note: A&P Assessment and Plan (1) End stage renal disease: Code(s): N18.6 - End stage renal disease Status: Chronic Assessment and Plan: * HD due on Tuesday. * Volume status looks okay. * Electrolytes look good (2) Altered mental status: Code(s): R41.82 - Altered mental status, unspecified Status: Acute Assessment and Plan: * has baseline confusion * worse due to infection (?) versus fluctuations in baseline confusion? * Mentation seems at his baseline (3) Acute hypokalemia: Code(s): E87.6 - Hypokalemia Status: Acute Assessment and Plan: * related to poor oral nutrition/oral intake * replace as needed * liberalized diet * potassium good today. (4) Urinary tract infection: Code(s): N39.0 - Urinary tract infection, site not specified Status: Resolved Assessment and Plan: * admission UA suggestive * does have some residual renal function with urine production * follow-up on urine culture - no growth to date * HOWEVER, was on outpatient IV antibiotics already (IV cefepime with HD) (5) Discitis of lumbar region: Code(s): M46.46 - Discitis, unspecified, lumbar region Status: Chronic Assessment and Plan: * evaluated at [facility] on previous hospitalization * on outpatient antibiotic therapy (IV cefepime with outpatient dialysis) (6) Atrial fibrillation: Code(s): I48.91 - Unspecified atrial fibrillation Status: Chronic Assessment and Plan: * Heart rate looks good * already on anticoagulation (7) Anemia: Code(s): D64.9 - Anemia, unspecified Status: Chronic Assessment and Plan: * due to ESRD and acute illness * Epogen with HD * hemoglobin target at 10.7 (8) HTN (hypertension): Code(s): I10 - Essential (primary) hypertension Status: Chronic Assessment and Plan: * systolic between 101 30 * follow trend of hemodynaics (9) DM2 (diabetes mellitus, type 2): Code(s): E11.9 - Type 2 diabetes mellitus without complications Status: Chronic Assessment and Plan: * follow accu-cheks * glycemic control per hospitalists Subjective Date/time seen: 10/22/23 15:33 Interval history: Erma is feeling about the same. No chest pain or shortness of breath Review of Systems Cardiovascular: Cardiovascular: Reports no additional cardiovascular complaints Respiratory: Respiratory: Reports no additional respiratory complaints Gastrointestinal: Gastrointestinal: Reports no additional gastrointestinal complaints Genitourinary: Genitourinary: Reports no additional male genitourinary complaints Exam Narrative: WDWN in NAD skin no rash head ncat lungs clear cor irreg no rub abd BS+ nontender and soft ext no edema. Objective Data Vital Signs Vital Signs: Vital Signs - 24 hr 10/21/23 20:40 10/21/23 20:00 10/22/23 04:40 Temperature 98.9 F 97.4 F L Pulse Rate 116 H 125 H Respiratory Rate 18 16 Blood Pressure 141/77 H 100/74 Pulse Oximetry 98 100 Oxygen Delivery Room Air 10/22/23 08:22 10/22/23 08:38 10/22/23 14:00 Temperature 97.4 F L Pulse Rate 85 130 H Respiratory Rate 16 Blood Pressure 10
--- NOTE | 2023-10-22 15:33 | PM.PNNEP ---
Progress Note: A&P Assessment and Plan (1) End stage renal disease: Code(s): N18.6 - End stage renal disease Status: Chronic Assessment and Plan: HD due on Tuesday. Volume status looks okay. Electrolytes look good (2) Altered mental status: Code(s): R41.82 - Altered mental status, unspecified Status: Acute Assessment and Plan: has baseline confusion worse due to infection (?) versus fluctuations in baseline confusion? Mentation seems at his baseline (3) Acute hypokalemia: Code(s): E87.6 - Hypokalemia Status: Acute Assessment and Plan: related to poor oral nutrition/oral intake replace as needed liberalized diet potassium good today. (4) Urinary tract infection: Code(s): N39.0 - Urinary tract infection, site not specified Status: Resolved Assessment and Plan: admission UA suggestive does have some residual renal function with urine production follow-up on urine culture - no growth to date HOWEVER, was on outpatient IV antibiotics already (IV cefepime with HD) (5) Discitis of lumbar region: Code(s): M46.46 - Discitis, unspecified, lumbar region Status: Chronic Assessment and Plan: evaluated at [facility] on previous hospitalization on outpatient antibiotic therapy (IV cefepime with outpatient dialysis) (6) Atrial fibrillation: Code(s): I48.91 - Unspecified atrial fibrillation Status: Chronic Assessment and Plan: Heart rate looks good already on anticoagulation (7) Anemia: Code(s): D64.9 - Anemia, unspecified Status: Chronic Assessment and Plan: due to ESRD and acute illness Epogen with HD hemoglobin target at 10.7 (8) HTN (hypertension): Code(s): I10 - Essential (primary) hypertension Status: Chronic Assessment and Plan: systolic between 101 30 follow trend of hemodynaics (9) DM2 (diabetes mellitus, type 2): Code(s): E11.9 - Type 2 diabetes mellitus without complications Status: Chronic Assessment and Plan: follow accu-cheks glycemic control per hospitalists Subjective Date/time seen: 10/22/23 15:33 Interval history: Erma is feeling about the same. No chest pain or shortness of breath Review of Systems Cardiovascular: Cardiovascular: Reports no additional cardiovascular complaints Respiratory: Respiratory: Reports no additional respiratory complaints Gastrointestinal: Gastrointestinal: Reports no additional gastrointestinal complaints Genitourinary: Genitourinary: Reports no additional male genitourinary complaints Exam Narrative: WDWN in NAD skin no rash head ncat lungs clear cor irreg no rub abd BS+ nontender and soft ext no edema. Objective Data Vital Signs Vital Signs: Vital Signs - 24 hr 10/21/23 20:40 10/21/23 20:00 10/22/23 04:40 Temperature 98.9 F 97.4 F L Pulse Rate 116 H 125 H Respiratory Rate 18 16 Blood Pressure 141/77 H 100/74 Pulse Oximetry 98 100 Oxygen Delivery Room Air 10/22/23 08:22 10/22/23 08:38 10/22/23 14:00 Temperature 97.4 F L Pulse Rate 85 130 H Respiratory Rate 16 Blood Pressure 102/57 L Pulse Oximetry 98 95 Oxygen Delivery Room Air Intake/Output Intake/Output: Intake & Output 10/19/23 10/20/23 10/21/23 10/22/23 23:59 23:59 23:59 23:59 Intake Total 650 1028 1528 660 Output Total 100 0 500 900 Balance 550 1028 1028 -240 Meds/Results Medications: Active Medications Generic Name Dose Route Start Last Admin Trade Name Freq PRN Reason Stop Dose Admin Acetaminophen 650 mg 10/20/23 01:22 10/21/23 20:55 Acetaminophen 325 Mg Tablet PO 650 mg Q6H PRN Administration Pain 1-6 Apixaban 5 mg 10/20/23 09:00 10/22/23 08:30 Apixaban 5 Mg Tablet PO 5 mg Q12HR AURELIO Administration Aspirin 81 mg 10/20/23 09:00 10/22/23 08:22 Aspirin 81 Mg Enteric Tablet PO
[2023-10-22 16:31] LABS: Glucose Point of Care 119 mg/dl (65-105)
[2023-10-22] MEDS: CEFEPIME 1 GM/NS 50 ML 1 GM/50 ML BAG IVPB (17:46)
[2023-10-22 20:52] LABS: Glucose Point of Care 108 mg/dl (65-105)
[2023-10-22] MEDS: PREGABALIN (*CRX) 50 MG CAPSULE PO (22:02)
[2023-10-23] VITALS (8 sets, daily range): BP systolic 80–111; BP diastolic 57–63; PULSE 64–124; RESP 13–22; TEMP 36.1–36.6; O2SAT 91–97; BMI 10.0
[2023-10-23 07:53] LABS: Basophils Absolute Auto 0.1 K/mm3 (0.0-0.1); Basophils Percent Auto 1.1 % (0.2-1.2); Eosinophils Absolute Auto 0.2 K/mm3 (0-0.3); Hematocrit 33.7 % (42.0-52.0); Hemoglobin 10.6 g/dL (14.0-18.0); Immature Granulocyte Absolute 0.02 K/mm3 (0.00-0.031); Immature Granulocyte Percent A 0.4 % (0-0.5); Lymphocytes Absolute Auto 1.75 K/mm3 (0.9-3.2); Lymphocytes Percent Auto 38.8 % (18.3-44.2); Mean Corpuscular HGB Conc 31.5 g/dl (32-36); Mean Corpuscular Hemoglobin 33.4 pg (26-34); Mean Corpuscular Volume 106.3 fl (80-100); Mean Platelet Volume 9.3 fl (7.4-10.4); Monocytes Absolute Auto 0.6 K/mm3 (0.1-0.6); Monocytes Percent Auto 13.3 % (2.6-8.5); Neutrophils Absolute Auto 1.9 K/mm3 (1.3-6.7); Neutrophils Percent Auto 42.4 % (45.5-73.1); Platelet Count Result 204 k/mm3 (150-375); Red Blood Count 3.17 M/mm3 (4.6-6.20); Red Cell Distribution Width 17.3 % (11.5-14.5); White Blood Count 4.5 K/mm3 (4.5-10.0)
[2023-10-23 07:57] LABS: Glucose Point of Care 105 mg/dl (65-105)
[2023-10-23 08:25] LABS: Albumin Level 2.9 g/dL (3.5-5.1); Anion Gap 7 mmol/L (8-16); Blood Urea Nitrogen 34 mg/dL (9-20); Carbon Dioxide 25 mmol/L (22-30); Chloride 109 mmol/L (98-107); Estimated CRCL calculation 20 ml/min; Estimated Glomerular Filt Rate 19; Glucose 96 mg/dL (65-110); Phosphorus 3.4 mg/dL (2.5-4.5); Potassium 4.2 mmol/L (3.4-5.0); Sodium 141 mmol/L (137-145)
[2023-10-23] MEDS: calcitrioL 0.25 MCG CAPSULE PO (09:48)
[2023-10-23] MEDS: MIDODRINE HCL 10 MG TABLET 20 MG PO ×3 (09:49→17:18)
[2023-10-23] MEDS: PRAMIPEXOLE 0.5 MG TABLET PO ×2 (09:49→17:17)
[2023-10-23] MEDS: SEVELAMER CARBONATE 800 MG TABLET PO ×3 (09:49→17:17)
[2023-10-23] MEDS: APIXABAN 5 MG TABLET PO ×2 (09:49→20:37)
[2023-10-23] MEDS: ACETAMINOPHEN 325 MG TABLET 650 MG PO (09:49)
[2023-10-23] MEDS: ASPIRIN 81 MG ENTERIC TABLET PO (09:49)
[2023-10-23] MEDS: SODIUM CHLORIDE 0.9% IV 500 ML 999 ML IV CONT (11:05)
[2023-10-23 11:43] LABS: Glucose Point of Care 176 mg/dl (65-105)
--- NOTE | 2023-10-23 13:12 | P.PNNP_ITS ---
Progress Note: A&P Assessment and Plan (1) End stage renal disease: Code(s): N18.6 - End stage renal disease Status: Chronic Assessment and Plan: * HD due on Tuesday. * no signs of excess fluid. * bp is up and down in the 80s and 100s. discussed with RADHA Macdonald. okay to give NS 250cc at a time up to a liter to bring the bp back up. He isn't eating very well, and may be behind in fluid. * Electrolytes look good (2) Altered mental status: Code(s): R41.82 - Altered mental status, unspecified Status: Acute Assessment and Plan: * has baseline confusion * worse due to infection (?) versus fluctuations in baseline confusion? * Mentation seems at his baseline (3) Acute hypokalemia: Code(s): E87.6 - Hypokalemia Status: Acute Assessment and Plan: * related to poor oral nutrition/oral intake * replace as needed * liberalized diet * potassium good today. (4) Urinary tract infection: Code(s): N39.0 - Urinary tract infection, site not specified Status: Resolved Assessment and Plan: * admission UA suggestive * does have some residual renal function with urine production * follow-up on urine culture - no growth to date * HOWEVER, was on outpatient IV antibiotics already (IV cefepime with HD) (5) Discitis of lumbar region: Code(s): M46.46 - Discitis, unspecified, lumbar region Status: Chronic Assessment and Plan: * evaluated at [facility] on previous hospitalization * on outpatient antibiotic therapy (IV cefepime with outpatient dialysis) (6) Atrial fibrillation: Code(s): I48.91 - Unspecified atrial fibrillation Status: Chronic Assessment and Plan: * Heart rate in the 70s * already on anticoagulation (7) Anemia: Code(s): D64.9 - Anemia, unspecified Status: Chronic Assessment and Plan: * due to ESRD and acute illness * Epogen with HD * hemoglobin target at 10.6 (8) HTN (hypertension): Code(s): I10 - Essential (primary) hypertension Status: Chronic Assessment and Plan: * systolic between 101 30 * follow trend of hemodynaics (9) DM2 (diabetes mellitus, type 2): Code(s): E11.9 - Type 2 diabetes mellitus without complications Status: Chronic Assessment and Plan: * follow accu-cheks * glycemic control per hospitalists Subjective Date/time seen: 10/23/23 13:12 Interval history: tired. not hungry Exam Narrative: WDWN in NAD skin no rash head ncat lungs clear cor irreg no rub abd BS+ nontender and soft ext no edema. Objective Data Vital Signs Vital Signs: Vital Signs - 24 hr 10/22/23 14:00 10/22/23 21:49 10/22/23 22:01 Temperature 97.4 F L 96.9 F L Pulse Rate 130 H 61 61 Respiratory Rate 16 12 Blood Pressure 102/57 L 105/61 Pulse Oximetry 95 100 Oxygen Delivery 10/22/23 20:00 10/23/23 05:41 10/23/23 10:24 Temperature 96.9 F L 96.9 F L Pulse Rate 61 64 116 H Respiratory Rate 12 14 16 Blood Pressure 100/63 86/57 L Pulse Oximetry 100 92 93 Oxygen Delivery Room Air 10/23/23 11:54 10/23/23 12:59 Temperature 97.6 F Pulse Rate 116 H 96 Respiratory Rate 16 Blood Pressure
--- NOTE | 2023-10-23 13:12 | PM.PNNEP ---
Progress Note: A&P Assessment and Plan (1) End stage renal disease: Code(s): N18.6 - End stage renal disease Status: Chronic Assessment and Plan: HD due on Tuesday. no signs of excess fluid. bp is up and down in the 80s and 100s. discussed with RADHA Macdonald. okay to give NS 250cc at a time up to a liter to bring the bp back up. He isn't eating very well, and may be behind in fluid. Electrolytes look good (2) Altered mental status: Code(s): R41.82 - Altered mental status, unspecified Status: Acute Assessment and Plan: has baseline confusion worse due to infection (?) versus fluctuations in baseline confusion? Mentation seems at his baseline (3) Acute hypokalemia: Code(s): E87.6 - Hypokalemia Status: Acute Assessment and Plan: related to poor oral nutrition/oral intake replace as needed liberalized diet potassium good today. (4) Urinary tract infection: Code(s): N39.0 - Urinary tract infection, site not specified Status: Resolved Assessment and Plan: admission UA suggestive does have some residual renal function with urine production follow-up on urine culture - no growth to date HOWEVER, was on outpatient IV antibiotics already (IV cefepime with HD) (5) Discitis of lumbar region: Code(s): M46.46 - Discitis, unspecified, lumbar region Status: Chronic Assessment and Plan: evaluated at [facility] on previous hospitalization on outpatient antibiotic therapy (IV cefepime with outpatient dialysis) (6) Atrial fibrillation: Code(s): I48.91 - Unspecified atrial fibrillation Status: Chronic Assessment and Plan: Heart rate in the 70s already on anticoagulation (7) Anemia: Code(s): D64.9 - Anemia, unspecified Status: Chronic Assessment and Plan: due to ESRD and acute illness Epogen with HD hemoglobin target at 10.6 (8) HTN (hypertension): Code(s): I10 - Essential (primary) hypertension Status: Chronic Assessment and Plan: systolic between 101 30 follow trend of hemodynaics (9) DM2 (diabetes mellitus, type 2): Code(s): E11.9 - Type 2 diabetes mellitus without complications Status: Chronic Assessment and Plan: follow accu-cheks glycemic control per hospitalists Subjective Date/time seen: 10/23/23 13:12 Interval history: tired. not hungry Exam Narrative: WDWN in NAD skin no rash head ncat lungs clear cor irreg no rub abd BS+ nontender and soft ext no edema. Objective Data Vital Signs Vital Signs: Vital Signs - 24 hr 10/22/23 14:00 10/22/23 21:49 10/22/23 22:01 Temperature 97.4 F L 96.9 F L Pulse Rate 130 H 61 61 Respiratory Rate 16 12 Blood Pressure 102/57 L 105/61 Pulse Oximetry 95 100 Oxygen Delivery 10/22/23 20:00 10/23/23 05:41 10/23/23 10:24 Temperature 96.9 F L 96.9 F L Pulse Rate 61 64 116 H Respiratory Rate 12 14 16 Blood Pressure 100/63 86/57 L Pulse Oximetry 100 92 93 Oxygen Delivery Room Air 10/23/23 11:54 10/23/23 12:59 Temperature 97.6 F Pulse Rate 116 H 96 Respiratory Rate 16 Blood Pressure 90/60 L 83/57 L Pulse Oximetry 93 Oxygen Delivery Intake/Output Intake/Output: Intake & Output 10/20/23 10/21/23 10/22/23 10/23/23 23:59 23:59 23:59 23:59 Intake Total 1028 1578 1550 1360 Output Total 0 500 900 Balance 1028 3329 837 7076 Meds/Results Medications: Active Medications Generic Name Dose Route Start Last Admin Trade Name Freq PRN Reason Stop Dose Admin Acetaminophen 650 mg 10/20/23 01:22 10/23/23 09:49 Acetaminophen 325 Mg Tablet PO 650 mg Q6H PRN Administration Pain 1-6 Apixaban 5 mg 10/20/23 09:00 10/23/23 09:49 Apixaban 5 Mg Tablet PO 5 mg Q12HR AURELIO Administration Aspirin 81 mg 10/20/23 09:00 10/23/23 09:49 Aspirin 81 Mg Enteric Tablet PO 11/19/23 08:59 81 mg DAILY AURELIO
[2023-10-23] MEDS: SODIUM CHLORIDE 0.9% IV 250 ML IV CONT (14:02)
--- NOTE | 2023-10-23 14:24 | PM.IMPN ---
Progress Note: A&P Assessment and Plan (1) Urinary tract infection: Code(s): N39.0 - Urinary tract infection, site not specified Status: Resolved Assessment and Plan: he has been on cefepime from previous provider continued on admission UA culture negative (2) Acute hypokalemia: Code(s): E87.6 - Hypokalemia Status: Acute Assessment and Plan: stable at this time, will replace as needed and trend labs (3) Weakness: Code(s): R53.1 - Weakness Status: Acute Assessment and Plan: likely due to chronic illness PT/OT ordered to continue working with him inpatient (4) CAD (coronary artery disease): Code(s): I25.10 - Atherosclerotic heart disease of [place] coronary artery without angina pectoris Status: Chronic (5) Altered mental status: Code(s): R41.82 - Altered mental status, unspecified Status: Acute Assessment and Plan: CT brain negative for acute process CXR negative UA culture negative BC pending (6) ESRD (end stage renal disease) on dialysis: Code(s): N18.6 - End stage renal disease; Z99.2 - Dependence on renal dialysis Status: Chronic Assessment and Plan: nephrology following receiving dialysis M/W/F soft BP today in 90's-80's systolic. 500 ml bolus given with no improvement. 250 ml at a time now per nephrology. (7) DM2 (diabetes mellitus, type 2): Code(s): E11.9 - Type 2 diabetes mellitus without complications Status: Chronic Assessment and Plan: insulin, accuchecks, hypoglycemic protocol (8) Atrial fibrillation: Code(s): I48.91 - Unspecified atrial fibrillation Status: Chronic Assessment and Plan: rate controlled, anticoagulated Subjective Date/time seen: 10/23/23 14:24 Interval history: Patient is alert and oriented x3 this morning. He is in no acute stress this morning, but appears chronically ill. He denies pain this am. His temperature is low, but he denies feeling cold. His BP has been very soft this morning and into this afternoon. 500 ml bolus given with no improvement. Nephrology following. Okay to give 250 ml fluids at a time. Will continue to closely monitor. Review of Systems Review of Systems: All systems reviewed & are unremarkable except as noted in HPI and below ROS unobtainable: Yes unobtainable due to mental status (confusion/delirium) Exam Const: General: comfortable, no acute distress, well developed, alert, awake, ill appearing acutely and other (DELIRIOUS) Nutritional Appearance: average body habitus Orientation/consciousness: patient oriented x3 HENMT: Head: normal to inspection, normocephalic and atraumatic Ears: hearing grossly normal bilaterally Face/Nose/Sinus: normal facial exam Face and sinus: normal facial exam Mouth: Yes moist mucous membranes Eyes: General: appearance normal, both eyes and all related structures Pupils: Equal, round and reactive pupils present EOM: EOMs intact bilaterally Neck: Neck: full ROM and no lymphadenopathy Lymphatic: no lymphadenopathy noted Resp: Effort & Inspection: normal respiratory effort and able to speak in complete sentences Auscultation: clear to auscultation bilaterally Cardio: Rate: regular rate Rhythm: regular rhythm Heart sounds: S1 normal heart sound present and S2 normal heart sound present GI: Inspection: distended, no visible herniation, no visible pulsation and No visible peristalsis Auscultation: normal bowel sounds Neuro: General: patient oriented x3, no focal motor deficits and Unable to assess gait Cranial nerves: Yes Equal, round and reactive pupils present Cognition (Neuro): normal cognition Speech: normal speech Gait exam (Neuro): Unable to assess gait Other: right leg below the knee amputation. Extrem: General: normal exam except as noted, no joint enlargement and no pedal edema Other: right leg amputation below the knee Psych:
[2023-10-23 16:32] LABS: Glucose Point of Care 122 mg/dl (65-105)
--- NOTE | 2023-10-23 16:32 | PC.NURSE ---
Patient and spouse unable to recall which day of the week Vitamin D is taken. Unable to complete medication reconciliation at this time.
[2023-10-23] MEDS: CEFEPIME 1 GM/NS 50 ML 1 GM/50 ML BAG IVPB (17:21)
[2023-10-23] MEDS: PREGABALIN (*CRX) 50 MG CAPSULE PO (20:37)
[2023-10-23 21:17] LABS: Glucose Point of Care 129 mg/dl (65-105)
[2023-10-24] VITALS (21 sets, daily range): BP systolic 76–115; BP diastolic 32–67; PULSE 74–127; RESP 15–20; TEMP 35.7–37; O2SAT 92–96
[2023-10-24 06:41] LABS: Albumin Level 2.6 g/dL (3.5-5.1); Anion Gap 8 mmol/L (8-16); Blood Urea Nitrogen 60 mg/dL (9-20); Calcium 9.2 mg/dL (8.4-10.2); Carbon Dioxide 23 mmol/L (22-30); Chloride 109 mmol/L (98-107); Estimated CRCL calculation 19 ml/min; Estimated Glomerular Filt Rate 16; Glucose 88 mg/dL (65-110); Phosphorus 3.5 mg/dL (2.5-4.5); Potassium 4.1 mmol/L (3.4-5.0); Sodium 140 mmol/L (137-145)
[2023-10-24 07:56] LABS: Basophils Absolute Auto 0.1 K/mm3 (0.0-0.1); Basophils Percent Auto 1.1 % (0.2-1.2); Eosinophils Absolute Auto 0.3 K/mm3 (0-0.3); Eosinophils Percent Auto 4.7 % (0-4.4); Hematocrit 32.5 % (42.0-52.0); Hemoglobin 9.9 g/dL (14.0-18.0); Immature Granulocyte Absolute 0.03 K/mm3 (0.00-0.031); Immature Granulocyte Percent A 0.6 % (0-0.5); Lymphocytes Absolute Auto 2.06 K/mm3 (0.9-3.2); Lymphocytes Percent Auto 38.4 % (18.3-44.2); Mean Corpuscular HGB Conc 30.5 g/dl (32-36); Mean Corpuscular Hemoglobin 32.6 pg (26-34); Mean Corpuscular Volume 106.9 fl (80-100); Mean Platelet Volume 9.7 fl (7.4-10.4); Monocytes Absolute Auto 0.6 K/mm3 (0.1-0.6); Monocytes Percent Auto 11.9 % (2.6-8.5); Neutrophils Absolute Auto 2.3 K/mm3 (1.3-6.7); Neutrophils Percent Auto 43.3 % (45.5-73.1); Nucleated Red Blood Cells Perc 0.4 % (0.0-0.2); Platelet Count Result 193 k/mm3 (150-375); Red Blood Count 3.04 M/mm3 (4.6-6.20); Red Cell Distribution Width 17.2 % (11.5-14.5); White Blood Count 5.4 K/mm3 (4.5-10.0)
[2023-10-24 07:58] LABS: Glucose Point of Care 89 mg/dl (65-105)
[2023-10-24 08:06] LABS: Anion Gap 8 mmol/L (8-16); Blood Urea Nitrogen 59 mg/dL (9-20); Calcium 8.9 mg/dL (8.4-10.2); Carbon Dioxide 23 mmol/L (22-30); Chloride 110 mmol/L (98-107); Estimated CRCL calculation 18 ml/min; Estimated Glomerular Filt Rate 15; Glucose 87 mg/dL (65-110); Potassium 4.2 mmol/L (3.4-5.0); Sodium 141 mmol/L (137-145)
[2023-10-24] MEDS: ASPIRIN 81 MG ENTERIC TABLET PO (08:36)
[2023-10-24] MEDS: calcitrioL 0.25 MCG CAPSULE PO (08:36)
[2023-10-24] MEDS: APIXABAN 5 MG TABLET PO ×2 (08:36→23:18)
[2023-10-24] MEDS: POTASSIUM CHLORIDE 20 MEQ ER TABLET 40 MEQ PO ×2 (08:36→17:36)
[2023-10-24] MEDS: MIDODRINE HCL 10 MG TABLET 20 MG PO ×3 (08:36→17:35)
[2023-10-24] MEDS: SEVELAMER CARBONATE 800 MG TABLET PO ×2 (08:42→13:04)
[2023-10-24] MEDS: PRAMIPEXOLE 0.5 MG TABLET PO ×2 (08:42→17:36)
[2023-10-24 09:03] LABS: Platelet Estimate Adequate (Adequate)
[2023-10-24 09:06] LABS: Burr Cells 2+ (NORMAL)
[2023-10-24 09:07] LABS: Polychromasia 1+ (NORMAL); Schistocytes None Seen (NORMAL)
[2023-10-24 11:40] LABS: Glucose Point of Care 90 mg/dl (65-105)
[2023-10-24] MEDS: SODIUM CHLORIDE 0.9% IV 1,000 ML 75 ML IV CONT (13:04)
[2023-10-24] MEDS: ERGOCALCIFEROL 50,000 UNITS CAPSULE 50000 UNITS PO (13:05)
--- NOTE | 2023-10-24 14:43 | PM.IMPN ---
Progress Note: A&P Assessment and Plan (1) Urinary tract infection: Code(s): N39.0 - Urinary tract infection, site not specified Status: Resolved Assessment and Plan: he has been on cefepime from previous provider continued on admission UA culture negative may repeat UA due to cognitive status change (2) Acute hypokalemia: Code(s): E87.6 - Hypokalemia Status: Acute Assessment and Plan: stable at this time, will replace as needed and trend labs (3) Weakness: Code(s): R53.1 - Weakness Status: Acute Assessment and Plan: likely due to chronic illness PT/OT ordered to continue working with him inpatient (4) CAD (coronary artery disease): Code(s): I25.10 - Atherosclerotic heart disease of [place] coronary artery without angina pectoris Status: Chronic (5) Altered mental status: Code(s): R41.82 - Altered mental status, unspecified Status: Acute Assessment and Plan: CT brain 10/19 negative for acute process CXR negative UA culture negative BC pending repeat CXR 10/23 negative and unchanged repeat CT brain ordered for 10/24 (6) ESRD (end stage renal disease) on dialysis: Code(s): N18.6 - End stage renal disease; Z99.2 - Dependence on renal dialysis Status: Chronic Assessment and Plan: nephrology following receiving dialysis M/W/F gentle IVF rehydration as he is likely dry (7) DM2 (diabetes mellitus, type 2): Code(s): E11.9 - Type 2 diabetes mellitus without complications Status: Chronic Assessment and Plan: insulin, accuchecks, hypoglycemic protocol (8) Atrial fibrillation: Code(s): I48.91 - Unspecified atrial fibrillation Status: Chronic Assessment and Plan: rate controlled, anticoagulated Subjective Date/time seen: 10/24/23 14:43 Interval history: Patient is alert and oriented to self only this morning. He has had a change in cognition since yesterday although no indication as to why. Repeat CXR was unchanged with no acute process. He is in no acute stress this morning, but appears chronically ill. He continues to deny pain His BP has been soft, but improved with fluids yesterday. Spoke with nephrology who is also following and will give gentle rehydration and repeat CT brain for his change in neurostatus. His baseline at this point is unknown, but he has a pattern of decompensation and for his cognition to wax and wane. Supposed to have dialysis on Mondays. Will continue to closely monitor. Review of Systems Review of Systems: ROS unobtainable: Yes unobtainable due to mental status (confusion/delirium) Exam Const: General: comfortable, no acute distress, well developed, alert, awake, ill appearing acutely, average body habitus and other (DELIRIOUS) Nutritional Appearance: average body habitus Orientation/consciousness: oriented to person and patient oriented x3 HENMT: Head: normal to inspection, normocephalic and atraumatic Ears: hearing grossly normal bilaterally Face/Nose/Sinus: normal facial exam Face and sinus: normal facial exam Mouth: Yes moist mucous membranes Eyes: General: appearance normal, both eyes and all related structures Pupils: Equal, round and reactive pupils present EOM: EOMs intact bilaterally Neck: Neck: full ROM, no lymphadenopathy and no JVD Thyroid: thyroid normal Lymphatic: no lymphadenopathy noted Resp: Effort & Inspection: normal respiratory effort and able to speak in complete sentences Auscultation: clear to auscultation bilaterally Cardio: Jugular venous distension: no JVD Rate: regular rate Rhythm: regular rhythm Heart sounds: S1 normal heart sound present and S2 normal heart sound present GI: Inspection: distended, no visible herniation, no visible pulsation and No visible peristalsis Auscultation: normal bowel sounds and Hyperactive bowel sounds present : General: Yes deferred Skin: Rashes: no rash
[2023-10-24 16:47] LABS: Glucose Point of Care 112 mg/dl (65-105)
--- NOTE | 2023-10-24 18:41 | PM.PNNEP ---
Progress Note: A&P Assessment and Plan (1) End stage renal disease: Code(s): N18.6 - End stage renal disease Status: Chronic Assessment and Plan: HD today continue M/W/ outpatient dialysis schedule follow electrolytes, volume status, and clearance (2) Altered mental status: Code(s): R41.82 - Altered mental status, unspecified Status: Acute Assessment and Plan: has baseline confusion worse due to infection (?) versus just fluctuations in baseline confusion? repeat CT scan of head noted (3) Acute hypokalemia: Code(s): E87.6 - Hypokalemia Status: Acute Assessment and Plan: resolved related to poor oral nutrition/oral intake replace as needed liberalized diet (4) Urinary tract infection: Code(s): N39.0 - Urinary tract infection, site not specified Status: Resolved Assessment and Plan: admission UA suggestive does have some residual renal function with urine production follow-up on urine culture - no growth to date HOWEVER, was on outpatient IV antibiotics already (IV cefepime with HD) (5) Discitis of lumbar region: Code(s): M46.46 - Discitis, unspecified, lumbar region Status: Chronic Assessment and Plan: evaluated at [facility] on previous hospitalization on outpatient antibiotic therapy (IV cefepime with outpatient dialysis) (6) Atrial fibrillation: Code(s): I48.91 - Unspecified atrial fibrillation Status: Chronic Assessment and Plan: rate control strategy already on anticoagulation (7) Anemia: Code(s): D64.9 - Anemia, unspecified Status: Chronic Assessment and Plan: due to ESRD and acute illness Epogen with HD follow H/H (8) HTN (hypertension): Code(s): I10 - Essential (primary) hypertension Status: Chronic Assessment and Plan: bouts of hypotension noted not opposed to PRN fluid boluses given hypotension - suspect ongoing poor oral intake/hydration follow trend of hemodynamics (9) DM2 (diabetes mellitus, type 2): Code(s): E11.9 - Type 2 diabetes mellitus without complications Status: Chronic Assessment and Plan: follow accu-cheks glycemic control per hospitalists Will oontinue to follow. Subjective Date/time seen: 10/24/23 18:41 Interval history: Follow-up for end stage renal disease on hemodialysis. Tolerating dialysis treatment at the time of my visit (seen on HD at 6:30AM); fluctuating mentation in association with bouts of hypotension earlier today; Exam Narrative: General: somewhat chronically ill appearing male in NAD Heart: normal S1 and S2; no rub Lungs: clear bilaterally Abdomen: soft, nontender, positive bowel sounds Extremities: no cyanosis or clubbing; s/p right AKA Skin: warm and dry Objective Data Vital Signs Vital Signs: Vital Signs Temp Pulse Resp BP Pulse Ox O2 Del Method 10/24/23 18:30 75 87/56 L 10/24/23 18:15 85 106/59 L 10/24/23 17:59 94 93/47 L 10/24/23 14:00 96.3 F L 79 17 115/52 L 92 10/24/23 08:00 Room Air 10/24/23 05:19 97.7 F 84 15 105/54 L 96 Intake/Output Intake/Output: Intake & Output 10/21/23 10/22/23 10/23/23 10/24/23 23:59 23:59 23:59 23:59 Intake Total 1578 1550 2418 684 Output Total 500 900 600 Balance 0789 165 1791 84 Meds/Results Medications: Active Medications Generic Name Dose Route Start Last Admin Trade Name Freq PRN Reason Stop Dose Admin Acetaminophen 650 mg 10/20/23 01:22 10/23/23 09:49 Acetaminophen 325 Mg Tablet PO 650 mg Q6H PRN Administration Pain 1-6 Apixaban 5 mg 10/20/23 09:00 10/24/23 08:36 Apixaban 5 Mg Tablet PO 5 mg Q12HR AURELIO Administration Aspirin 81 mg 10/20/23 09:00 10/24/23 08:36 Aspirin 81 Mg Enteric Tablet PO 11/19/23 08:59 81 mg DAILY AURELIO Administration Calcitriol 0.25 mcg 10/20/23 09:00 10/24
--- NOTE | 2023-10-24 18:41 | P.PNNP_ITS ---
Progress Note: A&P Assessment and Plan (1) End stage renal disease: Code(s): N18.6 - End stage renal disease Status: Chronic Assessment and Plan: * HD today * continue M/W/ outpatient dialysis schedule * follow electrolytes, volume status, and clearance (2) Altered mental status: Code(s): R41.82 - Altered mental status, unspecified Status: Acute Assessment and Plan: * has baseline confusion * worse due to infection (?) versus just fluctuations in baseline confusion? * repeat CT scan of head noted (3) Acute hypokalemia: Code(s): E87.6 - Hypokalemia Status: Acute Assessment and Plan: * resolved * related to poor oral nutrition/oral intake * replace as needed * liberalized diet (4) Urinary tract infection: Code(s): N39.0 - Urinary tract infection, site not specified Status: Resolved Assessment and Plan: * admission UA suggestive * does have some residual renal function with urine production * follow-up on urine culture - no growth to date * HOWEVER, was on outpatient IV antibiotics already (IV cefepime with HD) (5) Discitis of lumbar region: Code(s): M46.46 - Discitis, unspecified, lumbar region Status: Chronic Assessment and Plan: * evaluated at [facility] on previous hospitalization * on outpatient antibiotic therapy (IV cefepime with outpatient dialysis) (6) Atrial fibrillation: Code(s): I48.91 - Unspecified atrial fibrillation Status: Chronic Assessment and Plan: * rate control strategy * already on anticoagulation (7) Anemia: Code(s): D64.9 - Anemia, unspecified Status: Chronic Assessment and Plan: * due to ESRD and acute illness * Epogen with HD * follow H/H (8) HTN (hypertension): Code(s): I10 - Essential (primary) hypertension Status: Chronic Assessment and Plan: * bouts of hypotension noted * not opposed to PRN fluid boluses given hypotension - suspect ongoing poor oral intake/hydration * follow trend of hemodynamics (9) DM2 (diabetes mellitus, type 2): Code(s): E11.9 - Type 2 diabetes mellitus without complications Status: Chronic Assessment and Plan: * follow accu-cheks * glycemic control per hospitalists Will oontinue to follow. Subjective Date/time seen: 10/24/23 18:41 Interval history: Follow-up for end stage renal disease on hemodialysis. Tolerating dialysis treatment at the time of my visit (seen on HD at 6:30AM); fluctuating mentation in association with bouts of hypotension earlier today; Exam Narrative: General: somewhat chronically ill appearing male in NAD Heart: normal S1 and S2; no rub Lungs: clear bilaterally Abdomen: soft, nontender, positive bowel sounds Extremities: no cyanosis or clubbing; s/p right AKA Skin: warm and dry Objective Data Vital Signs Vital Signs: Vital Signs Temp Pulse Resp BP Pulse Ox O2 Del Method 10/24/23 18:30 75 87/56 L 10/24/23 18:15 85 106/59 L 10/24/23 17:59 94 93/47 L 10/24/23 14:00 96.3 F L 79 17 115/52 L 92 10/24/23 08:00 Room Air 10/24/23 05:19 97.7 F 84 15 105/54 L 96 Intake/Output Intake/Output: Intake & Output
[2023-10-24] MEDS: ALBUMIN HUMAN 25% 12.5 GM/50ML 50 ML IVPB (18:57)
[2023-10-24 21:06] LABS: Glucose Point of Care 101 mg/dl (65-105)
[2023-10-24] MEDS: PREGABALIN (*CRX) 50 MG CAPSULE PO (23:18)
[2023-10-24] MEDS: CEFEPIME 1 GM/NS 50 ML 1 GM/50 ML BAG IVPB (23:27)
[2023-10-25 04:03] VITALS: BP 94/55; PULSE 97; RESP 16; TEMP 36.6; O2SAT 90
[2023-10-25 07:42] LABS: Basophils Percent Auto 0.7 % (0.2-1.2); Eosinophils Absolute Auto 0.1 K/mm3 (0-0.3); Eosinophils Percent Auto 3.1 % (0-4.4); Hemoglobin 9.2 g/dL (14.0-18.0); Immature Granulocyte Absolute 0.03 K/mm3 (0.00-0.031); Immature Granulocyte Percent A 0.7 % (0-0.5); Lymphocytes Absolute Auto 1.74 K/mm3 (0.9-3.2); Lymphocytes Percent Auto 37.9 % (18.3-44.2); Mean Corpuscular HGB Conc 31.7 g/dl (32-36); Mean Corpuscular Hemoglobin 32.7 pg (26-34); Mean Corpuscular Volume 103.2 fl (80-100); Mean Platelet Volume 9.7 fl (7.4-10.4); Monocytes Absolute Auto 0.4 K/mm3 (0.1-0.6); Monocytes Percent Auto 8.7 % (2.6-8.5); Neutrophils Absolute Auto 2.3 K/mm3 (1.3-6.7); Neutrophils Percent Auto 48.9 % (45.5-73.1); Nucleated Red Blood Cells Perc 0.4 % (0.0-0.2); Platelet Count Result 176 k/mm3 (150-375); Red Blood Count 2.81 M/mm3 (4.6-6.20); Red Cell Distribution Width 16.9 % (11.5-14.5); White Blood Count 4.6 K/mm3 (4.5-10.0)
[2023-10-25 07:57] LABS: Glucose Point of Care 80 mg/dl (65-105)
[2023-10-25 08:11] LABS: Albumin Level 2.4 g/dL (3.5-5.1); Anion Gap 7 mmol/L (8-16); Blood Urea Nitrogen 35 mg/dL (9-20); Calcium 8.3 mg/dL (8.4-10.2); Carbon Dioxide 27 mmol/L (22-30); Chloride 105 mmol/L (98-107); Estimated CRCL calculation 28 ml/min; Estimated Glomerular Filt Rate 27; Glucose 71 mg/dL (65-110); Magnesium 1.9 mg/dL (1.6-2.3); Phosphorus 1.8 mg/dL (2.5-4.5); Potassium 2.7 mmol/L (3.4-5.0); Sodium 139 mmol/L (137-145)
[2023-10-25] MEDS: APIXABAN 5 MG TABLET PO ×2 (08:33→20:44)
[2023-10-25] MEDS: POTASSIUM CHLORIDE 20 MEQ ER TABLET 40 MEQ PO ×2 (08:33→16:33)
[2023-10-25] MEDS: PRAMIPEXOLE 0.5 MG TABLET PO ×2 (08:33→16:33)
[2023-10-25] MEDS: SEVELAMER CARBONATE 800 MG TABLET PO ×3 (08:33→16:33)
[2023-10-25] MEDS: ASPIRIN 81 MG ENTERIC TABLET PO (08:33)
[2023-10-25] MEDS: MIDODRINE HCL 10 MG TABLET 20 MG PO ×3 (08:33→16:33)
[2023-10-25] MEDS: calcitrioL 0.25 MCG CAPSULE PO (08:33)
[2023-10-25 10:00] VITALS: BMI 10.0
--- NOTE | 2023-10-25 10:56 | PCNFU ---
Nutrition Follow-Up Complete: Increased nutrient needs related to altered skin integrity as evidenced by DTPI to buttocks Goal:PO intake 75% of meals and supplements Pt progressing towards goal, continue with current goal. Pt current nutrition is Renal, Nepro and BALBINA BID. Nutrition recommendation: continue with current plan of care Last recorded weight is 77.1 kg. Bowel Motility: +BM 10/23 Labs Reviewed: Hgb:9.2, HCT:29, Alb:2.4, K:2.7, BUN:35, cr:2.4 Meds Noted: eliquis, KCL, novolog Skin: DTPI to L buttocks, DM foot ulcer Additional Notes: Pt continues on a renal diet, intake varied from ranges from 25-75%, supplements in place per order. Encourage po intake of meals and supplements. Monitor intake, wt, labs, skin. Follow up in 5 days.
[2023-10-25 11:40] LABS: Glucose Point of Care 119 mg/dl (65-105)
--- NOTE | 2023-10-25 12:01 | PM.PNNEP ---
Progress Note: A&P Assessment and Plan (1) End stage renal disease: Code(s): N18.6 - End stage renal disease Status: Chronic Assessment and Plan: HD tomorrow continue M/W/F outpatient dialysis schedule follow electrolytes, volume status, and clearance ok to stop phosphorus binders given low phosphorus (2) Altered mental status: Code(s): R41.82 - Altered mental status, unspecified Status: Acute Assessment and Plan: has baseline confusion furthermore, he waxes and wanes with his mentation at baseline worse due to infection (?) versus just fluctuations in baseline confusion? repeat CT scan of head noted continue supportive therapy (3) Acute hypokalemia: Code(s): E87.6 - Hypokalemia Status: Acute Assessment and Plan: also fluctuates related to poor oral nutrition/oral intake replace as needed and on chronic supplementation liberalize diet (4) Urinary tract infection: Code(s): N39.0 - Urinary tract infection, site not specified Status: Resolved Assessment and Plan: admission UA suggestive does have some residual renal function with urine production urine culture with no growth to date HOWEVER, was on outpatient IV antibiotics already (IV cefepime with HD for #5) (5) Discitis of lumbar region: Code(s): M46.46 - Discitis, unspecified, lumbar region Status: Chronic Assessment and Plan: evaluated at [facility] on previous hospitalization on outpatient antibiotic therapy (IV cefepime with outpatient dialysis) (6) Atrial fibrillation: Code(s): I48.91 - Unspecified atrial fibrillation Status: Chronic Assessment and Plan: rate control strategy already on anticoagulation (7) Anemia: Code(s): D64.9 - Anemia, unspecified Status: Chronic Assessment and Plan: due to ESRD and acute illness Epogen with HD follow H/H (8) HTN (hypertension): Code(s): I10 - Essential (primary) hypertension Status: Chronic Assessment and Plan: bouts of hypotension noted not opposed to PRN fluid boluses given hypotension - suspect ongoing poor oral intake/hydration on midodrine already follow trend of hemodynamics (9) DM2 (diabetes mellitus, type 2): Code(s): E11.9 - Type 2 diabetes mellitus without complications Status: Chronic Assessment and Plan: follow accu-cheks glycemic control per hospitalists Will oontinue to follow. Subjective Date/time seen: 10/25/23 12:01 Interval history: Follow-up for end stage renal disease on hemodialysis. Tolerated dialysis treatment yesterday without any issues or problems; mentation seems better today in comparison to yesterday (but his baseline mental status waxes/wanes even at baseline); BP remains soft but on midodrine and getting IVFs since his oral intake/nutrition is poor at baseline as well. Exam Narrative: General: somewhat chronically ill appearing male in NAD Heart: normal S1 and S2; no rub Lungs: clear bilaterally Abdomen: soft, nontender, positive bowel sounds Extremities: no cyanosis or clubbing; s/p right AKA Skin: warm and intact Objective Data Vital Signs Vital Signs: Vital Signs Temp Pulse Resp BP Pulse Ox O2 Del Method 10/25/23 08:00 Room Air 10/25/23 04:03 97.8 F 97 16 94/55 L 90 10/24/23 20:00 102 H 18 92 Room Air 10/24/23 22:25 97.9 F 102 H 18 92 10/24/23 21:31 100 98/46 L 10/24/23 21:00 78 88/32 L 10/24/23 20:30 127 H 108/67 10/24/23 20:15 98 88/58 L 10/24/23 19:30 74 94/54 L 10/24/23 19:15 93 92/50 L 10/24/23 19:00 93 86/42 L 10/24/23 18:45 90 88/49 L 10/24/23 21:34 97.9 F 104 H 20 107/55 L 10/24/23 21:15 106 H 86/42 L 10/24/23 20:45 99 76/50 L 10/24/23 20:00 100 100/55 L 10/24/23 19:45 81 93/48 L 10/24/23 17:49 97.9 F
--- NOTE | 2023-10-25 12:01 | P.PNNP_ITS ---
Progress Note: A&P Assessment and Plan (1) End stage renal disease: Code(s): N18.6 - End stage renal disease Status: Chronic Assessment and Plan: * HD tomorrow * continue M/W/ outpatient dialysis schedule * follow electrolytes, volume status, and clearance * ok to stop phosphorus binders given low phosphorus (2) Altered mental status: Code(s): R41.82 - Altered mental status, unspecified Status: Acute Assessment and Plan: * has baseline confusion * furthermore, he waxes and wanes with his mentation at baseline * worse due to infection (?) versus just fluctuations in baseline confusion? * repeat CT scan of head noted * continue supportive therapy (3) Acute hypokalemia: Code(s): E87.6 - Hypokalemia Status: Acute Assessment and Plan: * also fluctuates * related to poor oral nutrition/oral intake * replace as needed and on chronic supplementation * liberalize diet (4) Urinary tract infection: Code(s): N39.0 - Urinary tract infection, site not specified Status: Resolved Assessment and Plan: * admission UA suggestive * does have some residual renal function with urine production * urine culture with no growth to date * HOWEVER, was on outpatient IV antibiotics already (IV cefepime with HD for #5) (5) Discitis of lumbar region: Code(s): M46.46 - Discitis, unspecified, lumbar region Status: Chronic Assessment and Plan: * evaluated at [facility] on previous hospitalization * on outpatient antibiotic therapy (IV cefepime with outpatient dialysis) (6) Atrial fibrillation: Code(s): I48.91 - Unspecified atrial fibrillation Status: Chronic Assessment and Plan: * rate control strategy * already on anticoagulation (7) Anemia: Code(s): D64.9 - Anemia, unspecified Status: Chronic Assessment and Plan: * due to ESRD and acute illness * Epogen with HD * follow H/H (8) HTN (hypertension): Code(s): I10 - Essential (primary) hypertension Status: Chronic Assessment and Plan: * bouts of hypotension noted * not opposed to PRN fluid boluses given hypotension - suspect ongoing poor oral intake/hydration * on midodrine already * follow trend of hemodynamics (9) DM2 (diabetes mellitus, type 2): Code(s): E11.9 - Type 2 diabetes mellitus without complications Status: Chronic Assessment and Plan: * follow accu-cheks * glycemic control per hospitalists Will oontinue to follow. Subjective Date/time seen: 10/25/23 12:01 Interval history: Follow-up for end stage renal disease on hemodialysis. Tolerated dialysis treatment yesterday without any issues or problems; mentation seems better today in comparison to yesterday (but his baseline mental status waxes/wanes even at baseline); BP remains soft but on midodrine and getting IVFs since his oral intake/nutrition is poor at baseline as well. Exam Narrative: General: somewhat chronically ill appearing male in NAD Heart: normal S1 and S2; no rub Lungs: clear bilaterally Abdomen: soft, nontender, positive bowel sounds Extremities: no cyanosis or clubbing; s/p right AKA Skin: warm and intact Objective Data Vital Signs Vital Signs: Vital Signs Temp Pulse Resp BP Pulse Ox O2 Del Method 10/25/23 08:00 Room
[2023-10-25] MEDS: SODIUM CHLORIDE 0.9% IV 1,000 ML 50 ML IV CONT (12:37)
[2023-10-25 14:00] VITALS: BP 90/52; PULSE 52; RESP 16; TEMP 35.6; O2SAT 98
[2023-10-25 14:45] VITALS: BP 90/52
--- NOTE | 2023-10-25 15:35 | PM.IMPN ---
Progress Note: A&P Assessment and Plan (1) Urinary tract infection: Code(s): N39.0 - Urinary tract infection, site not specified Status: Resolved Assessment and Plan: he has been on cefepime from previous provider continued on admission UA culture negative may repeat UA due to cognitive status change (2) Acute hypokalemia: Code(s): E87.6 - Hypokalemia Status: Acute Assessment and Plan: K+ 2.7 this am, receiving 40 PO BID will recheck in am, up to 3.0 this afternoon prior to second dose (3) Weakness: Code(s): R53.1 - Weakness Status: Acute Assessment and Plan: likely due to chronic illness PT/OT ordered to continue working with him inpatient (4) CAD (coronary artery disease): Code(s): I25.10 - Atherosclerotic heart disease of [place] coronary artery without angina pectoris Status: Chronic (5) Altered mental status: Code(s): R41.82 - Altered mental status, unspecified Status: Acute Assessment and Plan: CT brain 10/19 negative for acute process CXR negative UA culture negative BC pending repeat CXR 10/23 negative and unchanged repeat CT brain unchanged with no acute process (6) ESRD (end stage renal disease) on dialysis: Code(s): N18.6 - End stage renal disease; Z99.2 - Dependence on renal dialysis Status: Chronic Assessment and Plan: nephrology following receiving dialysis M/W/F gentle IVF rehydration as he is likely dry (7) DM2 (diabetes mellitus, type 2): Code(s): E11.9 - Type 2 diabetes mellitus without complications Status: Chronic Assessment and Plan: insulin, accuchecks, hypoglycemic protocol (8) Atrial fibrillation: Code(s): I48.91 - Unspecified atrial fibrillation Status: Chronic Assessment and Plan: rate controlled, anticoagulated Subjective Date/time seen: 10/25/23 15:35 Interval history: Patient is alert and oriented x3 this morning. He has mild improvement in cognition since yesterday. He is in no acute stress this morning, but appears chronically ill. He continues to deny pain His BP has been soft, but improved with fluids yesterday. Will continue to give gentle fluid to keep BP stable. CT brain was negative for any acute process. His baseline at this point is unknown, but he has a pattern of decompensation and for his cognition to wax and wane. Had dialysis late yesterday. Potassium low this morning, but responding to PO. Will continue to closely monitor. Review of Systems Review of Systems: All systems reviewed & are unremarkable except as noted in HPI and below Exam Const: General: comfortable, no acute distress, alert, awake, ill appearing acutely and other (DELIRIOUS) Orientation/consciousness: patient oriented x3 HENMT: Head: normal to inspection, normocephalic and atraumatic Mouth: Yes moist mucous membranes Eyes: Pupils: Equal, round and reactive pupils present EOM: EOMs intact bilaterally Neck: Neck: no lymphadenopathy Lymphatic: no lymphadenopathy noted Resp: Effort & Inspection: normal respiratory effort and able to speak in complete sentences Auscultation: clear to auscultation bilaterally Cardio: Rate: regular rate Rhythm: regular rhythm Heart sounds: S1 normal heart sound present and S2 normal heart sound present GI: Inspection: distended, no visible herniation, no visible pulsation and No visible peristalsis Auscultation: normal bowel sounds Skin: Rashes: no rashes Wounds: no wounds Neuro: General: patient oriented x3, no focal motor deficits and Unable to assess gait Cognition (Neuro): normal cognition and abnormal cognition (DELIRIUM/CONFUSION) Speech: normal speech Gait exam (Neuro): Unable to assess gait Other: right leg below the knee amputation. Extrem: General: normal exam except as noted, no joint enlargement and no pedal edema Other: right leg amputation below the knee Psych
[2023-10-25 16:27] VITALS: BP 94/57
[2023-10-25] MEDS: SODIUM CHLORIDE 0.9% IV 250 ML 100 ML IV CONT (16:31)
[2023-10-25 17:28] LABS: Glucose Point of Care 86 mg/dl (65-105)
[2023-10-25] MEDS: CEFEPIME 1 GM/NS 50 ML 1 GM/50 ML BAG IVPB (17:52)
[2023-10-25] MEDS: PREGABALIN (*CRX) 50 MG CAPSULE PO (20:44)
[2023-10-25 22:00] VITALS: BP 93/55; PULSE 63; RESP 16; TEMP 36.2; O2SAT 99
[2023-10-25 22:11] LABS: Glucose Point of Care 91 mg/dl (65-105)
[2023-10-26] VITALS (21 sets, daily range): BP systolic 85–111; BP diastolic 50–62; PULSE 70–115; RESP 14–20; TEMP 36.2–37; O2SAT 97–100
[2023-10-26 07:09] LABS: Basophils Percent Auto 0.8 % (0.2-1.2); Eosinophils Absolute Auto 0.2 K/mm3 (0-0.3); Hematocrit 32.9 % (42.0-52.0); Hemoglobin 10.3 g/dL (14.0-18.0); Immature Granulocyte Absolute 0.04 K/mm3 (0.00-0.031); Immature Granulocyte Percent A 0.8 % (0-0.5); Lymphocytes Percent Auto 38.5 % (18.3-44.2); Mean Corpuscular HGB Conc 31.3 g/dl (32-36); Mean Corpuscular Hemoglobin 32.9 pg (26-34); Mean Corpuscular Volume 105.1 fl (80-100); Mean Platelet Volume 9.8 fl (7.4-10.4); Monocytes Absolute Auto 0.4 K/mm3 (0.1-0.6); Monocytes Percent Auto 8.9 % (2.6-8.5); Neutrophils Absolute Auto 2.4 K/mm3 (1.3-6.7); Platelet Count Result 172 k/mm3 (150-375); Red Blood Count 3.13 M/mm3 (4.6-6.20); Red Cell Distribution Width 17.2 % (11.5-14.5); White Blood Count 4.9 K/mm3 (4.5-10.0)
[2023-10-26 07:24] LABS: Albumin Level 2.7 g/dL (3.5-5.1); Anion Gap 7 mmol/L (8-16); Blood Urea Nitrogen 54 mg/dL (9-20); Calcium 8.3 mg/dL (8.4-10.2); Carbon Dioxide 23 mmol/L (22-30); Chloride 110 mmol/L (98-107); Estimated CRCL calculation 21 ml/min; Estimated Glomerular Filt Rate 19; Glucose 64 mg/dL (65-110); Phosphorus 2.5 mg/dL (2.5-4.5); Potassium 2.8 mmol/L (3.4-5.0); Sodium 140 mmol/L (137-145)
[2023-10-26] MEDS: MIDODRINE HCL 10 MG TABLET 20 MG PO ×3 (07:35→16:21)
[2023-10-26] MEDS: POTASSIUM CHLORIDE 20 MEQ ER TABLET 40 MEQ PO ×3 (07:41→20:34)
[2023-10-26 07:43] LABS: Glucose Point of Care 70 mg/dl (65-105)
--- NOTE | 2023-10-26 07:51 | PC.NURSE ---
To Dialysis per hospital bed.
[2023-10-26 07:53] LABS: Anisocytosis 1+ (NORMAL); Platelet Estimate Adequate (Adequate)
[2023-10-26 07:54] LABS: Burr Cells 1+ (NORMAL); Schistocytes None Seen (NORMAL)
--- NOTE | 2023-10-26 08:00 | PC.NURSE ---
Morning medications not administered while patient is in Dialysis.
[2023-10-26] MEDS: SODIUM CHLORIDE 0.9% IV 1,000 ML 999 ML IV CONT (10:13)
[2023-10-26] MEDS: EPOETIN ALFA-EPBX 10,000 UNITS/ML VIAL 10000 UNITS IV PUSH ×2 (10:13→10:19)
--- NOTE | 2023-10-26 10:58 | P.PNIM_ITS ---
Progress Note: A&P Assessment and Plan (1) Urinary tract infection: Code(s): N39.0 - Urinary tract infection, site not specified Status: Resolved Assessment and Plan: 10/25/23: * he has been on cefepime from previous provider continued on admission * UA culture negative * may repeat UA due to cognitive status change 10/26/23: * Urine culture is negative * He was previously on cefepime by another provider, however I am not seeing need for the cefepime to continue and will discontinue at this time * I will check a procalcitonin. (2) Acute hypokalemia: Code(s): E87.6 - Hypokalemia Status: Acute Assessment and Plan: 10/25/23: * K+ 2.7 this am, receiving 40 PO BID * will recheck in am, up to 3.0 this afternoon prior to second dose 10/26/23: * Potassium this morning 2.8, patient had a K+ bath with HD today. Will check repeat BMP now. * Continue to trend labs. (3) Weakness: Code(s): R53.1 - Weakness Status: Acute Assessment and Plan: 10/25/23: * likely due to chronic illness * PT/OT ordered to continue working with him inpatient 10/26/23: * Continue PT/OT (4) CAD (coronary artery disease): Code(s): I25.10 - Atherosclerotic heart disease of [place] coronary artery without angina pectoris Status: Chronic Assessment and Plan: 10/26/23: * Continue home meds (5) Altered mental status: Code(s): R41.82 - Altered mental status, unspecified Status: Acute Assessment and Plan: 10/25/23: * CT brain 10/19 negative for acute process * CXR negative * UA culture negative * BC pending * repeat CXR 10/23 negative and unchanged * repeat CT brain unchanged with no acute process 10/26/23: * Blood cultures negative * Urine cultures negative, stopped cefepime as this can contribute to the patients AMS * Patient is alert and oriented x3 currently (6) ESRD (end stage renal disease) on dialysis: Code(s): N18.6 - End stage renal disease; Z99.2 - Dependence on renal dialysis Status: Chronic Assessment and Plan: 10/25/23: * nephrology following * receiving dialysis M/W/F * gentle IVF rehydration as he is likely dry 10/26/23: * Nephrology following * HD today, removed 331ml today * BUN 54, creatinine 3.30 (7) DM2 (diabetes mellitus, type 2): Code(s): E11.9 - Type 2 diabetes mellitus without complications Status: Chronic Assessment and Plan: 10/25/23: * insulin, accu-checks, hypoglycemic protocol 10/26/23: * BG ranging 64-88 * No change to current treatment plan * Continue renal dialysis diet (8) Atrial fibrillation: Code(s): I48.91 - Unspecified atrial fibrillation Status: Chronic Assessment and Plan: 10/25/23: * rate controlled, anticoagulated 10/26/23: * no change to current treatment plan. Time Spent With Patient Time with patient: Greater than 35 minutes Subjective Date/time seen: 10/26/23 10:58 Interval history: This is a 73 year old male who presented to the hospital on 10/19/23 with altered mental status. Work up in hospital included a chest x-ray which showed stable bibasilar airspace opacities, consistent with atelectasis versus scarring. He also had a head CT which showed stable appearing age-related changes including mild diffuse volume loss and mild scattered white matter low attenuation consistent with chronic small-vessel ischemic disease, no acute intracranial process. UA showed 2+ protein
--- NOTE | 2023-10-26 10:58 | PM.IMPN ---
Progress Note: A&P Assessment and Plan (1) Urinary tract infection: Code(s): N39.0 - Urinary tract infection, site not specified Status: Resolved Assessment and Plan: 10/25/23: he has been on cefepime from previous provider continued on admission UA culture negative may repeat UA due to cognitive status change 10/26/23: Urine culture is negative He was previously on cefepime by another provider, however I am not seeing need for the cefepime to continue and will discontinue at this time I will check a procalcitonin. (2) Acute hypokalemia: Code(s): E87.6 - Hypokalemia Status: Acute Assessment and Plan: 10/25/23: K+ 2.7 this am, receiving 40 PO BID will recheck in am, up to 3.0 this afternoon prior to second dose 10/26/23: Potassium this morning 2.8, patient had a K+ bath with HD today. Will check repeat BMP now. Continue to trend labs. (3) Weakness: Code(s): R53.1 - Weakness Status: Acute Assessment and Plan: 10/25/23: likely due to chronic illness PT/OT ordered to continue working with him inpatient 10/26/23: Continue PT/OT (4) CAD (coronary artery disease): Code(s): I25.10 - Atherosclerotic heart disease of [place] coronary artery without angina pectoris Status: Chronic Assessment and Plan: 10/26/23: Continue home meds (5) Altered mental status: Code(s): R41.82 - Altered mental status, unspecified Status: Acute Assessment and Plan: 10/25/23: CT brain 10/19 negative for acute process CXR negative UA culture negative BC pending repeat CXR 10/23 negative and unchanged repeat CT brain unchanged with no acute process 10/26/23: Blood cultures negative Urine cultures negative, stopped cefepime as this can contribute to the patients AMS Patient is alert and oriented x3 currently (6) ESRD (end stage renal disease) on dialysis: Code(s): N18.6 - End stage renal disease; Z99.2 - Dependence on renal dialysis Status: Chronic Assessment and Plan: 10/25/23: nephrology following receiving dialysis M/W/F gentle IVF rehydration as he is likely dry 10/26/23: Nephrology following HD today, removed 331ml today BUN 54, creatinine 3.30 (7) DM2 (diabetes mellitus, type 2): Code(s): E11.9 - Type 2 diabetes mellitus without complications Status: Chronic Assessment and Plan: 10/25/23: insulin, accu-checks, hypoglycemic protocol 10/26/23: BG ranging 64-88 No change to current treatment plan Continue renal dialysis diet (8) Atrial fibrillation: Code(s): I48.91 - Unspecified atrial fibrillation Status: Chronic Assessment and Plan: 10/25/23: rate controlled, anticoagulated 10/26/23: no change to current treatment plan. Time Spent With Patient Time with patient: Greater than 35 minutes Subjective Date/time seen: 10/26/23 10:58 Interval history: This is a 73 year old male who presented to the hospital on 10/19/23 with altered mental status. Work up in hospital included a chest x-ray which showed stable bibasilar airspace opacities, consistent with atelectasis versus scarring. He also had a head CT which showed stable appearing age-related changes including mild diffuse volume loss and mild scattered white matter low attenuation consistent with chronic small-vessel ischemic disease, no acute intracranial process. UA showed 2+ protein, trace ketones, 3+ blood, 2+ leukocytes, greater than 100 urine RBC's, 11-20 urine wbc's. Blood cultures showing no growth on day 5 which is the final read. Urine culture showing no growth on the final read. EKG was showing atrial flutter with a rate of 87. Nephrology was consulted for dialysis needs. On examination today patient is alert and oriented x3, lying in the bed. Patient denies any fever, chills, nausea, vomiting, diarrhea, abdominal pain, Labs today reveal WBC 4.9, Hgb 10.3, Hct 32.9,
--- NOTE | 2023-10-26 11:30 | PM.PNNEP ---
Progress Note: A&P Assessment and Plan (1) End stage renal disease: Code(s): N18.6 - End stage renal disease Status: Chronic Assessment and Plan: HD tomorrow continue M/W/F outpatient dialysis schedule follow electrolytes, volume status, and clearance ok to stop phosphorus binders given low phosphorus (2) Altered mental status: Code(s): R41.82 - Altered mental status, unspecified Status: Acute Assessment and Plan: has baseline confusion furthermore, he waxes and wanes with his mentation at baseline worse due to infection (?) versus just fluctuations in baseline confusion? repeat CT scan of head noted continue supportive therapy (3) Acute hypokalemia: Code(s): E87.6 - Hypokalemia Status: Acute Assessment and Plan: also fluctuates related to poor oral nutrition/oral intake replace as needed and on chronic supplementation adjust dialysis bath to compensate as well liberalize diet (4) Urinary tract infection: Code(s): N39.0 - Urinary tract infection, site not specified Status: Resolved Assessment and Plan: admission UA suggestive does have some residual renal function with urine production urine culture with no growth to date HOWEVER, was on outpatient IV antibiotics already (IV cefepime with HD for #5) (5) Discitis of lumbar region: Code(s): M46.46 - Discitis, unspecified, lumbar region Status: Chronic Assessment and Plan: evaluated at [facility] on previous hospitalization on outpatient antibiotic therapy (IV cefepime with outpatient dialysis) (6) Atrial fibrillation: Code(s): I48.91 - Unspecified atrial fibrillation Status: Chronic Assessment and Plan: rate control strategy already on anticoagulation (7) Anemia: Code(s): D64.9 - Anemia, unspecified Status: Chronic Assessment and Plan: due to ESRD and acute illness Epogen with HD follow H/H (8) HTN (hypertension): Code(s): I10 - Essential (primary) hypertension Status: Chronic Assessment and Plan: bouts of hypotension noted not opposed to PRN fluid boluses given hypotension - suspect ongoing poor oral intake/hydration on midodrine already follow trend of hemodynamics (9) DM2 (diabetes mellitus, type 2): Code(s): E11.9 - Type 2 diabetes mellitus without complications Status: Chronic Assessment and Plan: follow accu-cheks glycemic control per hospitalists Will oontinue to follow. Subjective Date/time seen: 12/13/23 11:30 Interval history: Follow-up for end stage renal disease on hemodialysis. Tolerating dialysis treatment at the time of my visit (seen on HD at 11:20AM); menation seems relatively stable as are his hemodynamics; no apparent distress noted; no issues overnight or earlier this morning. Exam Narrative: General: somewhat chronically ill appearing male in NAD Heart: normal S1 and S2; no rub Lungs: clear bilaterally Abdomen: soft, nontender, positive bowel sounds Extremities: no cyanosis or clubbing; s/p right AKA Skin: no rash or nodules Objective Data Vital Signs Vital Signs: Vital Signs Temp Pulse Resp BP Pulse Ox O2 Del Method 10/26/23 11:15 115 H 109/57 L 10/26/23 11:00 109 H 94/51 L 10/26/23 10:45 109 H 85/51 L 10/26/23 10:30 110 H 100/55 L 10/26/23 10:15 103 H 100/55 L 10/26/23 10:00 100 95/56 L 10/26/23 09:45 86 99/62 L 10/26/23 09:30 81 93/60 L 10/26/23 09:15 73 104/57 L 10/26/23 09:11 70 93/50 L 10/26/23 09:01 98 87/57 L 10/26/23 08:45 92 96/54 L 10/26/23 08:15 79 100/59 L 10/26/23 07:50 97.7 F 80 14 109/55 L 10/26/23 08:30 88 111/60 10/26/23 08:02 73 105/55 L 10/26/23 08:00 Room Air 10/26/23 06:00 97.6 F 87 14 108/58 L 99 Intake/Output Intake/Output: Intak
--- NOTE | 2023-10-26 11:30 | P.PNNP_ITS ---
Progress Note: A&P Assessment and Plan (1) End stage renal disease: Code(s): N18.6 - End stage renal disease Status: Chronic Assessment and Plan: * HD tomorrow * continue M/W/ outpatient dialysis schedule * follow electrolytes, volume status, and clearance * ok to stop phosphorus binders given low phosphorus (2) Altered mental status: Code(s): R41.82 - Altered mental status, unspecified Status: Acute Assessment and Plan: * has baseline confusion * furthermore, he waxes and wanes with his mentation at baseline * worse due to infection (?) versus just fluctuations in baseline confusion? * repeat CT scan of head noted * continue supportive therapy (3) Acute hypokalemia: Code(s): E87.6 - Hypokalemia Status: Acute Assessment and Plan: * also fluctuates * related to poor oral nutrition/oral intake * replace as needed and on chronic supplementation * adjust dialysis bath to compensate as well * liberalize diet (4) Urinary tract infection: Code(s): N39.0 - Urinary tract infection, site not specified Status: Resolved Assessment and Plan: * admission UA suggestive * does have some residual renal function with urine production * urine culture with no growth to date * HOWEVER, was on outpatient IV antibiotics already (IV cefepime with HD for #5) (5) Discitis of lumbar region: Code(s): M46.46 - Discitis, unspecified, lumbar region Status: Chronic Assessment and Plan: * evaluated at [facility] on previous hospitalization * on outpatient antibiotic therapy (IV cefepime with outpatient dialysis) (6) Atrial fibrillation: Code(s): I48.91 - Unspecified atrial fibrillation Status: Chronic Assessment and Plan: * rate control strategy * already on anticoagulation (7) Anemia: Code(s): D64.9 - Anemia, unspecified Status: Chronic Assessment and Plan: * due to ESRD and acute illness * Epogen with HD * follow H/H (8) HTN (hypertension): Code(s): I10 - Essential (primary) hypertension Status: Chronic Assessment and Plan: * bouts of hypotension noted * not opposed to PRN fluid boluses given hypotension - suspect ongoing poor oral intake/hydration * on midodrine already * follow trend of hemodynamics (9) DM2 (diabetes mellitus, type 2): Code(s): E11.9 - Type 2 diabetes mellitus without complications Status: Chronic Assessment and Plan: * follow accu-cheks * glycemic control per hospitalists Will oontinue to follow. Subjective Date/time seen: 10/26/23 11:30 Interval history: Follow-up for end stage renal disease on hemodialysis. Tolerating dialysis treatment at the time of my visit (seen on HD at 11:20AM); menation seems relatively stable as are his hemodynamics; no apparent distress noted; no issues overnight or earlier this morning. Exam Narrative: General: somewhat chronically ill appearing male in NAD Heart: normal S1 and S2; no rub Lungs: clear bilaterally Abdomen: soft, nontender, positive bowel sounds Extremities: no cyanosis or clubbing; s/p right AKA Skin: no rash or nodules Objective Data Vital Signs Vital Signs: Vital Signs Temp Pulse Resp BP Pulse Ox O2 Del Method 10/26/23 11:15 115 H 109/57 L 10/26/23 11:00
[2023-10-26 11:33] LABS: Glucose Point of Care 70 mg/dl (65-105)
--- NOTE | 2023-10-26 11:50 | PC.NURSE ---
Returned to room per hospital bed from Dialysis.
[2023-10-26] MEDS: PRAMIPEXOLE 0.5 MG TABLET PO ×2 (12:03→16:21)
[2023-10-26] MEDS: calcitrioL 0.25 MCG CAPSULE PO (12:03)
[2023-10-26] MEDS: ASPIRIN 81 MG ENTERIC TABLET PO (12:03)
[2023-10-26] MEDS: SEVELAMER CARBONATE 800 MG TABLET PO ×3 (12:03→16:21)
[2023-10-26] MEDS: APIXABAN 5 MG TABLET PO ×2 (12:03→20:35)
[2023-10-26] MEDS: SODIUM CHLORIDE 0.9% IV 1,000 ML 50 ML IV CONT (13:32)
[2023-10-26 16:42] LABS: Glucose Point of Care 88 mg/dl (65-105)
[2023-10-26] MEDS: CEFEPIME 1 GM/NS 50 ML 1 GM/50 ML BAG IVPB (17:05)
[2023-10-26 18:59] LABS: Anion Gap 3 mmol/L (8-16); Blood Urea Nitrogen 23 mg/dL (9-20); Calcium 7.7 mg/dL (8.4-10.2); Carbon Dioxide 30 mmol/L (22-30); Chloride 104 mmol/L (98-107); Estimated CRCL calculation 40 ml/min; Estimated Glomerular Filt Rate 40; Glucose 85 mg/dL (65-110); Potassium 2.8 mmol/L (3.4-5.0); Sodium 137 mmol/L (137-145)
[2023-10-26 20:31] LABS: Glucose Point of Care 93 mg/dl (65-105)
[2023-10-26] MEDS: PREGABALIN (*CRX) 50 MG CAPSULE PO (20:34)
[2023-10-26] MEDS: ATORVASTATIN 40 MG TABLET PO (20:34)
[2023-10-27 06:00] VITALS: BP 117/73; PULSE 100; RESP 16; TEMP 36; O2SAT 93
[2023-10-27 07:49] LABS: Alanine Aminotransferase 12 U/L (6-50); Albumin Level 2.5 g/dL (3.5-5.1); Alkaline Phosphatase 88 U/L (38-126); Anion Gap 5 mmol/L (8-16); Aspartate Amino Transferase 23 U/L (17-59); Bilirubin,Total 0.5 mg/dL (0.2-1.3); Blood Urea Nitrogen 28 mg/dL (9-20); Carbon Dioxide 27 mmol/L (22-30); Chloride 106 mmol/L (98-107); Estimated CRCL calculation 27 ml/min; Estimated Glomerular Filt Rate 24; Glucose 73 mg/dL (65-110); Potassium 3.7 mmol/L (3.4-5.0); Sodium 138 mmol/L (137-145)
[2023-10-27 07:50] LABS: Basophils Absolute Auto 0.1 K/mm3 (0.0-0.1); Basophils Percent Auto 1.1 % (0.2-1.2); Eosinophils Absolute Auto 0.2 K/mm3 (0-0.3); Hematocrit 31.3 % (42.0-52.0); Hemoglobin 9.9 g/dL (14.0-18.0); Immature Granulocyte Absolute 0.05 K/mm3 (0.00-0.031); Lymphocytes Absolute Auto 1.66 K/mm3 (0.9-3.2); Lymphocytes Percent Auto 31.8 % (18.3-44.2); Mean Corpuscular HGB Conc 31.6 g/dl (32-36); Mean Corpuscular Hemoglobin 32.9 pg (26-34); Mean Platelet Volume 9.8 fl (7.4-10.4); Monocytes Absolute Auto 0.6 K/mm3 (0.1-0.6); Monocytes Percent Auto 11.3 % (2.6-8.5); Neutrophils Absolute Auto 2.7 K/mm3 (1.3-6.7); Neutrophils Percent Auto 50.8 % (45.5-73.1); Platelet Count Result 180 k/mm3 (150-375); Red Blood Count 3.01 M/mm3 (4.6-6.20); Red Cell Distribution Width 17.4 % (11.5-14.5); White Blood Count 5.2 K/mm3 (4.5-10.0)
[2023-10-27 07:59] LABS: Glucose Point of Care 77 mg/dl (65-105)
[2023-10-27 09:33] LABS: Procalcitonin 1.1 ng/mL
[2023-10-27] MEDS: SEVELAMER CARBONATE 800 MG TABLET PO ×3 (09:38→17:37)
[2023-10-27] MEDS: PRAMIPEXOLE 0.5 MG TABLET PO ×2 (09:38→17:37)
[2023-10-27] MEDS: calcitrioL 0.25 MCG CAPSULE PO (09:39)
[2023-10-27] MEDS: ASPIRIN 81 MG ENTERIC TABLET PO (09:39)
[2023-10-27] MEDS: SPIRONOLACTONE 25 MG TABLET PO (09:40)
[2023-10-27] MEDS: CYANOCOBALAMIN 1,000 MCG TABLET 1000 MCG PO (09:40)
[2023-10-27] MEDS: APIXABAN 5 MG TABLET PO ×2 (09:40→20:09)
[2023-10-27] MEDS: MIDODRINE HCL 10 MG TABLET 20 MG PO ×3 (09:40→17:36)
[2023-10-27] MEDS: polyethylene glycoL 3350 17 GM POWD.PACK PO (09:41)
[2023-10-27] MEDS: CITALOPRAM HYDROBROMIDE 20 MG TABLET PO (09:41)
[2023-10-27] MEDS: LIDOCAINE 5% PATCH 1 PATCH TRANSDERM (09:41)
[2023-10-27] MEDS: POTASSIUM CHLORIDE 20 MEQ ER TABLET 40 MEQ PO ×2 (09:42→17:37)
[2023-10-27 11:55] LABS: Glucose Point of Care 175 mg/dl (65-105)
[2023-10-27 14:00] VITALS: BP 119/68; PULSE 100; RESP 18; TEMP 35.7; O2SAT 97
--- NOTE | 2023-10-27 15:20 | PM.DS ---
DS: Admitting Diagnosis Discharge Date 10/27/23 Admitting Diagnosis urinary tract infection acute hypokalemia weakness coronary artery disease altered mental status end-stage renal on dialysis atrial fibrillation type 2 diabetes mellitus DS: Discharge Diagnosis Discharge Diagnosis (1) Urinary tract infection: Code(s): N39.0 - Urinary tract infection, site not specified Status: Resolved (2) Acute hypokalemia: Code(s): E87.6 - Hypokalemia Status: Acute (3) Weakness: Code(s): R53.1 - Weakness Status: Acute (4) CAD (coronary artery disease): Code(s): I25.10 - Atherosclerotic heart disease of [place] coronary artery without angina pectoris Status: Chronic (5) Altered mental status: Code(s): R41.82 - Altered mental status, unspecified Status: Acute (6) ESRD (end stage renal disease) on dialysis: Code(s): N18.6 - End stage renal disease; Z99.2 - Dependence on renal dialysis Status: Chronic (7) DM2 (diabetes mellitus, type 2): Code(s): E11.9 - Type 2 diabetes mellitus without complications Status: Chronic (8) Atrial fibrillation: Code(s): I48.91 - Unspecified atrial fibrillation Status: Chronic DS: Summary Hospital Course Reason for hospitalization: altered mental status end-stage renal disease on dialysis Hospital Course: This is a 73 year old male who presented to the hospital on 10/19/23 with altered mental status. Work up in hospital included a chest x-ray which showed stable bibasilar airspace opacities, consistent with atelectasis versus scarring.? He also had a head CT which showed stable appearing age-related changes including mild diffuse volume loss and mild scattered white matter low attenuation consistent with chronic small-vessel ischemic disease, no acute intracranial process.? UA showed 2+ protein, trace ketones, 3+ blood, 2+ leukocytes, greater than 100 urine RBC's, 11-20 urine wbc's.? Blood cultures showing no growth on day 5 which is the final read.? Urine culture showing no growth on the final read.? EKG was showing atrial flutter with a rate of 87.? Nephrology was consulted for dialysis needs. examination today patient is alert and oriented x3, lying in the bed. He denies any fevers, chills, nausea,diarrhea, abdominal pain, shortness a breath, chest pain. Labs today reveal hemoglobin 9 point, hematocrit 30.3, sodium level 138, potassium is now up to 3.7 BUN 28, creatinine 2.6, procalcitonin 1.1. patient is stable for discharge back to his facility. He will need to follow up with his primary care 1 week. final diagnosis: altered mental status, end-stage renal disease on dialysis, hypokalemia Status at Discharge Cognitive/behavioral status at discharge: A & O x3 Functional status at discharge: wheelchair bound Overall status at discharge: patient is progressing back to baseline Time Spent with Patient Time attestation: Total time spent providing and/or coordinating discharge services: Time spent: Greater than 30 minutes Exam Narrative: General: In no acute distress, well nourished Head: atraumatic, no encephalopathy Eyes: EOMI, PERRLA, sclera clear ENT: moist mucous membranes, nasal passages clear Neck: supple, no JVD, no adenopathy, trachea midline Cardiac: Normal S1 and S2. No murmur, gallops or friction rubs, peripheral pulses intact. Respiratory: Lungs clear to auscultation, no adventitious lung sounds Gastrointestinal: soft, non-distended, non-tender, normoactive bowel sounds. : On HD, left upper arm fistula Extremities: Right leg [id number] amputation, moves all other extremities well Skin: clean, dry, intact. No wounds or lesions. Neuro: Alert and oriented x4, cranial nerves intact, no neuro deficits. Psych: normal mood, normal affect, interactive DS: Data Data Completed and Pending Completed studies during hospitalization: chest x-ray head CT Pending studies at dischar
[2023-10-27 15:30] LABS: SARS-CoV-2 RNA PCR Negative (Negative)
[2023-10-27 16:33] LABS: Glucose Point of Care 115 mg/dl (65-105)
[2023-10-27] MEDS: CEFEPIME 1 GM/NS 50 ML 1 GM/50 ML BAG IVPB (18:39)
[2023-10-27] MEDS: PREGABALIN (*CRX) 50 MG CAPSULE PO (20:09)
[2023-10-27] MEDS: ATORVASTATIN 40 MG TABLET PO (20:09)
--- NOTE | 2023-10-27 20:29 | ECG_ITS ---
Measurements Intervals [place] Rate: 122 P: 253 WI: 233 QRS: 127 QRSD: 139 T: 0 QT: 325 QTc: 463 Interpretive Statements ATYPICAL ATRIAL FLUTTER WITH RAPID VENTRICULAR RESPONSE INDETERMINATE AXIS INTRAVENTRICULAR CONDUCTION DELAY [130+ ms QRS DURATION] POOR R-WAVE PROGRESSION/CANNOT EXCLUDE PREVIOUS ANTEROSEPTAL VT ABNORMAL ECG COMPARED TO ECG 10/19/2023 11:46:42 VENTRICULAR RESPONSE TO ATRIAL FLUTTER IS INCREASED Electronically Signed On 10-28-2023 14:00:11 PV DESIGN AND INSTALLATION TECHNICIAN by Elie Martin M.D.
[2023-10-27 21:10] VITALS: BP 99/76; PULSE 84; RESP 14; TEMP 35.8; O2SAT 98
[2023-10-27 21:43] LABS: Glucose Point of Care 113 mg/dl (65-105)
== END 2023-10-27 21:15 | DRG 689 ==
LOC: ANHED 14:44 → ANH3MEDSUR 16:29
PROVIDERS: Emergency Medicine; Internal Medicine Nephrology; Nurse Practitioner; Admitting Provider Internal Medicine; Emergency Provider Emergency Medicine; PCP Nurse Practitioner Family; Visit Provider Nurse Practitioner Acute Care
DX: N39.0 Urinary tract infection, site not specified (principal); N18.6 End stage renal disease; I12.0 Hypertensive chronic kidney disease with stage 5 chronic kidney disease or end stage renal disease; G93.40 Encephalopathy, unspecified; M46.26 Osteomyelitis of vertebra, lumbar region; I48.92 Unspecified atrial flutter; D63.1 Anemia in chronic kidney disease; E87.6 Hypokalemia; E11.22 Type 2 diabetes mellitus with diabetic chronic kidney disease; E78.5 Hyperlipidemia, unspecified; F41.8 Other specified anxiety disorders; G47.33 Obstructive sleep apnea (adult) (pediatric); G40.909 Epilepsy, unspecified, not intractable, without status epilepticus; I48.91 Unspecified atrial fibrillation; I25.10 Atherosclerotic heart disease of native coronary artery without angina pectoris; I95.9 Hypotension, unspecified; M46.46 Discitis, unspecified, lumbar region; N40.0 Benign prostatic hyperplasia without lower urinary tract symptoms; R41.0 Disorientation, unspecified; Z11.52 Encounter for screening for COVID-19; Z79.4 Long term (current) use of insulin; Z99.2 Dependence on renal dialysis; Z89.611 Acquired absence of right leg above knee; Z66 Do not resuscitate; Z79.01 Long term (current) use of anticoagulants; Z79.82 Long term (current) use of aspirin; Z98.49 Cataract extraction status, unspecified eye; Z95.1 Presence of aortocoronary bypass graft; Z95.5 Presence of coronary angioplasty implant and graft
CPT/HCPCS: 36415; 36600; 70450; 71045; 74018; 80048; 80053; 80069; 81001; 82375; 82805; 82948; 83050; 83735; 84100; 84132; 84145; 85025; 85027; 85610; 85730; 86706; 87040; 87086; 87340; 87635; 93005; 96365; 96375; 97110; 97161; 97166; 97530; 97535; 99285; A9270; G0257; G0378; J0692; J0696; J3480; J7030; J7040; J7050; P9047; Q5105

== ENCOUNTER 2023-11-16 15:41 | Inpatient (IN) | payer MEDICARE, SELFPAY ==
[2023-11-16] VITALS (29 sets, daily range): BP systolic 83–113; BP diastolic 50–78; PULSE 77–95; RESP 15–20; TEMP 36.7; O2SAT 85–100
--- NOTE | ~2023-11-16 | XR_ITS ---
XR_FLGTUBINS_CR DATE: 11/19/2023 13:22 INDICATION: Difficulty placing NG tube TECHNIQUE: Fluoroscopy was provided during attempted nasogastric tube insertion bilaterally. 0.8 minutes fluoroscopy time DAP: 1.225 One image COMPARISON: None FINDINGS: The nurse attempted to place a nasogastric tube side of the nose, but passage of the tube w as blocked at the posterior nasal cavity bilaterally. IMPRESSION: Unsuccessful attempted nasogastric tube placement by nurse, with obstruction to passage i n the posterior nasal cavity bilaterally Reviewed, dictated and finalized at [facility]. Reviewed, dictated and finalized at location A. MAINTENANCE WORKER IMPRESSION: Unsuccessful attempted nasogastric tube placement by nurse, with ob struction to passage in the posterior nasal cavity bilaterally
--- NOTE | ~2023-11-16 | XR_ITS ---
EXAMINATION: XR chest 1V DATE: 11/16/2023 17:28 INDICATION: Altered mental status. TECHNIQUE: A single frontal view of the chest was obtained. COMPARISON: Chest single view 10/24/2023, CT abdomen and pelvis 09/22/2023 FINDINGS: There is chronic marked elevation of right hemidiaphragm. There are airspace opacities in t he lower lung zones, likely atelectasis. No pleural effusion or pneumothorax. Cardiomegaly is noted. Median sternotomy wires and mediastinal surgical clips are seen, likely from prior coronary artery by pass grafting. A right internal jugular central venous catheter is seen with tip in the superior vena cava. The colon is distended. IMPRESSION: 1. Chronic marked elevation of right hemidiaphragm. 2. Airspace opacities in the lower lung zones, likely atelectasis. 3. Cardiomegaly. 4. Distention of the colon again seen, consistent with adynamic ileus. Reviewed, dictated and finalized at location E. ICIAN SURGEON
--- NOTE | ~2023-11-16 | XR_ITS ---
XR abdomen/kub 1V DATE: 11/20/2023 10:30 INDICATION: Pseudoobstruction TECHNIQUE: 2 supine AP views on 11/20/2023 1017 hours COMPARISON: 11/18/2023 KUB at 1012 hours 11/16/2023 CT abdomen pelvis FINDINGS: Persistent prominent gaseous distention of the small and large bowel. Rotatory levoscoliosis and severe multilevel degenerative disease of the lumbar spine. Degenerative s purring of the lower thoracic spine. IMPRESSION: Persistent prominent gaseous distention of small and large bowel Reviewed, dictated and finalized at [facility]. Reviewed, dictated and finalized at location A. TIC TECHNICIAN
--- NOTE | ~2023-11-16 | XR_ITS ---
Portable chest x-ray Comparison: 11/16/2023 Clinical History: Shortness of breath Findings: Right-sided central venous line is unchanged. There is extensive right basilar and right p erihilar hazy airspace consolidation. Probable minimal left pleural effusion. Cardiomediastinal silh ouette is stable. Bones and soft tissues are unremarkable. Impression: Interval development of extensive hazy right basilar and perihilar airspace insufflation. Correlate f or asymmetric pulmonary edema versus pneumonia. Minimal left pleural effusion. Stable support line. Reviewed, dictated and finalized at location . BERRY CHECKER Impression: Interval development of extensive hazy right basilar and perihilar airspace ins ufflation. Correlate for asymmetric pulmonary edema versus pneumonia. Minimal left pleural effusion. Stable support line.
--- NOTE | ~2023-11-16 | CT_ITS ---
EXAMINATION: CT abdomen pelvis wo con DATE: 11/16/2023 18:48 INDICATION: Abdominal distention. TECHNIQUE: Computed tomography (CT) of the abdomen and pelvis was performed without intravenous contr ast. Automated exposure control and iterative reconstruction technique were employed. The dose-length product was 857.08 mGy-cm. COMPARISON: CT abdomen and pelvis 09/22/2023 low lumbar spine MRI 09/18/2023 FINDINGS: The visualized portions of the lung bases demonstrate moderate-sized right and small left p leural effusions. There is dependent atelectasis bilaterally. The heart size is normal. There are cor onary artery calcifications. There are calcifications aortic valve. There are changes of coronary art kayla bypass grafting. No pericardial effusion. The liver and spleen are normal. The gallbladder is abs ent. Calcifications in the pancreas are consistent with chronic pancreatitis. The adrenal glands are normal. There is mild atrophy of the kidneys. There is a 10 mm cyst in right kidney. There is diverti culosis of the colon without evidence of diverticulitis. The colon is distended. There is liquid stoo l in the colon suggestive of diarrhea. The appendix is not visualized. There is a small volume of asc ites. There is calcified atherosclerosis of the aorta and many of the other arteries. There are no pa thologically enlarged lymph nodes. Body wall edema is noted. There is severe lumbar spondylosis. Ther e are erosions at L2-L3, consistent with discitis/osteoarthritis. IMPRESSION: 1. Dilated colon, consistent with adynamic ileus. 2. Discitis/osteomyelitis at L2-L3, slightly worsened from 09/22/2023. 3. Moderate-sized right and small left pleural effusions. 4. Small volume of ascites. Reviewed, dictated and finalized at location E. ERTY DISPOSAL OFFICER
--- NOTE | ~2023-11-16 | CT_ITS ---
EXAMINATION: CT brain wo con DATE: 11/16/2023 17:21 INDICATION: Mental status change. TECHNIQUE: Computed tomography (CT) of the head was performed without intravenous contrast. The mA wa s adjusted according to patient size. Iterative reconstruction technique was employed. The dose-lengt h product was 681.00 mGy-cm. COMPARISON: Head CT 10/24/2023 FINDINGS: There are scattered areas of low attenuation in the cerebral white matter, which is within normal limits for the patient's age. There is no intracranial hemorrhage, acute infarction, or abnorm al intracranial mass lesion. The ventricles are normal in size. There is mild mucosal thickening in t he paranasal sinuses. The mastoid air cells are normal. There are likely changes of ocular lens repla cement surgeries. IMPRESSION: 1. Normal aging brain. Reviewed, dictated and finalized at location E. EGE OF EDUCATION DEAN IMPRESSION: 1. Normal aging brain.
--- NOTE | ~2023-11-16 | XR_ITS ---
Portable chest x-ray Comparison: 11/20/2023 Clinical History: Shortness of breath Findings: Stable right-sided central venous line. There is hazy bibasilar airspace disease and quest ionable minimal pleural effusions. Cardiomediastinal silhouette is stable. Bones and soft tissues ar e unremarkable. Impression: Bibasilar pulmonary edema/atelectasis versus infection. Correlate clinically. Probable minimal pleural effusions. Stable support line. Reviewed, dictated and finalized at location . ND SERVICE EQUIPMENT MECHANIC Impression: Bibasilar pulmonary edema/atelectasis versus infection. Correlate clinically. Probable minimal pleural effusions. Stable support line.
--- NOTE | ~2023-11-16 | XR_ITS ---
EXAMINATION: XR abdomen/kub 1V DATE: 11/18/2023 22:24 INDICATION: Intestinal pseudoobstruction. TECHNIQUE: A supine view of the abdomen on 3 radiographs was obtained. COMPARISON: CT abdomen and pelvis 11/16/2023 FINDINGS: There is dilated small and large bowel. A catheter overlies the bladder. Median sternotomy wires are noted. IMPRESSION: 1. Dilated small and large bowel, consistent with adynamic ileus. Reviewed, dictated and finalized at location E. P MANAGER
--- NOTE | 2023-11-16 15:55 | ED.AMS ---
HPI - Altered Mental Status General Chief Complaint: Altered Mental Status Stated Complaint: AMS, AFIB RVR Time Seen by Provider: 11/16/23 15:51 History of Present Illness HPI narrative: Patient is a 73-year-old male with history of ESRD on hemodialysis here today from hemodialysis for some confusion. Patient denies feeling confused at all, states that he just has ?a wacky personality ?. Per EMS they were initially called for AFib with RVR however he appeared to be in sinus rhythm when I arrived and family want him transported for some confusion. Patient notes that he does have a cough which began yesterday, nonproductive in nature. Denies any chest pain, shortness of breath, abdominal pain or distension. He states that he does not regularly produce a large amount of urine so he is unsure if he has had any urinary symptoms. He gets dialyzed with a fistula in his left upper arm, had 3 of his 3.5 hr run before being transferred to the ED. Related Data Home Medications Medication Instructions Recorded Confirmed atorvastatin 40 mg tablet 40 mg PO HS 12/11/19 10/19/23 citalopram 20 mg tablet 20 mg PO DAILY 03/03/23 10/19/23 sevelamer carbonate 800 mg tablet 800 mg PO TID 03/03/23 10/19/23 acetaminophen 500 mg tablet 650 mg PO Q6H PRN Pain 1-6 09/08/23 10/19/23 apixaban 5 mg tablet (Eliquis) 5 mg PO BID 09/08/23 10/19/23 aspirin 81 mg tablet 81 mg PO DAILY 09/08/23 10/19/23 pramipexole 0.5 mg tablet (Mirapex) 0.5 mg PO BID 09/08/23 10/19/23 midodrine 10 mg tablet 20 mg PO TID 09/09/23 10/19/23 [place] 3 mg PO HS 10/19/23 10/19/23 calcitriol 0.25 mcg capsule 0.25 mcg PO DAILY 10/19/23 10/19/23 (Rocaltrol) cefepime 1 gram intravenous 1 g IV 3XW 10/19/23 10/19/23 solution citalopram 20 mg tablet 20 mg PO DAILY 10/19/23 10/19/23 cyanocobalamin (vitamin B-12) 100 1,000 mcg PO DAILY 10/19/23 10/19/23 mcg tablet cyclobenzaprine 5 mg PO Q8H PRN Spasms 10/19/23 10/19/23 dronedarone 400 mg tablet 400 mg PO BID 10/19/23 10/19/23 ergocalciferol (vitamin D2) 50,000 50,000 unit PO WEEKLY 10/19/23 10/19/23 unit tablet insulin lispro 100 unit/mL 1 sliding scale dose subcut 10/19/23 10/19/23 subcutaneous pen USEASDIRECTD lidocaine 5 % topical patch 1 patch transdermal DAILY 10/19/23 10/19/23 (Lidoderm) loperamide 2 mg capsule 2 mg PO QID 10/19/23 10/19/23 polyethylene glycol 3350 17 17 g PO DAILY 10/19/23 10/19/23 gram/dose oral powder (Miralax) pregabalin 50 mg capsule 50 mg PO HS 10/19/23 10/19/23 spironolactone 25 mg tablet 25 mg PO DAILY 10/19/23 10/19/23 Allergies Allergy/AdvReac Type Severity Reaction Status Date / Time morphine Allergy Mild TREMORS Verified 10/19/23 17:18 Review of Systems Review of Systems: All systems reviewed & are unremarkable except as noted in HPI and below PMFSH Past Medical History Medical History Atrial fibrillation AV fistula 3 attempts BPH (benign prostatic hyperplasia) Depression with anxiety DM2 (diabetes mellitus, type 2) ESRD (end stage renal disease) on dialysis HLD (hyperlipidemia) HTN (hypertension) Obstructive sleep apnea Seizure disorder Surgical History Surgical History H/O carpal tunnel repair H/O cataract extraction H/O cystoscopy H/O eye surgery H/O four vessel coronary artery bypass graft H/O heart artery stent X3 H/O shoulder surgery Left shoulder History of back surgery X3 History of bladder surgery History of parathyroid surgery Hx of nephrostomy Many years ago S/P cubital tunnel release Family History Family History Father No problems noted. Sibling Hypertension Cancer Grandparent Hypertension Diabetes mellitus Mother Ovarian cancer Sibling Cancer Social History Social History Social History: The patient has 5 children in the
--- NOTE | 2023-11-16 15:58 | ECG_ITS ---
Measurements Intervals [place] Rate: 86 P: -14 DC: 143 QRS: 18 QRSD: 106 T: 102 QT: 449 QTc: 539 Interpretive Statements SINUS OR ECTOPIC ATRIAL RHYTHM LEFT ATRIAL ENLARGEMENT LOW VOLTAGE IN LIMB LEADS CANNOT RULE OUT SEPTAL INFARCT, AGE INDETERMINATE BORDERLINE ST-T WAVE ABNORMALITY- DIFFUSE LEADS BASELINE ARTIFACT- I, II, III, AVR, AVL, AVF, V1-V6 ABNORMAL ECG COMPARED TO ECG 10/27/2023 20:50:36 SINUS RHYTHM NOW PRESENT Electronically Signed On 11-16-2023 16:18:41 ARMAMENT INSTALLER by Eliot Lacy D.O.
[2023-11-16 16:27] LABS: Basophils Percent Auto 1.3 % (0.2-1.2); Eosinophils Absolute Auto 0.1 K/mm3 (0-0.3); Eosinophils Percent Auto 3.5 % (0-4.4); Hematocrit 30.6 % (42.0-52.0); Immature Granulocyte Absolute 0.02 K/mm3 (0.00-0.031); Immature Granulocyte Percent A 0.6 % (0-0.5); Lymphocytes Absolute Auto 0.88 K/mm3 (0.9-3.2); Lymphocytes Percent Auto 27.9 % (18.3-44.2); Mean Corpuscular HGB Conc 32.7 g/dl (32-36); Mean Corpuscular Hemoglobin 31.9 pg (26-34); Mean Corpuscular Volume 97.8 fl (80-100); Mean Platelet Volume 9.4 fl (7.4-10.4); Monocytes Absolute Auto 0.3 K/mm3 (0.1-0.6); Monocytes Percent Auto 8.3 % (2.6-8.5); Neutrophils Absolute Auto 1.8 K/mm3 (1.3-6.7); Neutrophils Percent Auto 58.4 % (45.5-73.1); Platelet Count Result 221 k/mm3 (150-375); Red Blood Count 3.13 M/mm3 (4.6-6.20); Red Cell Distribution Width 16.5 % (11.5-14.5); White Blood Count 3.2 K/mm3 (4.5-10.0)
[2023-11-16 16:28] LABS: Glucose Point of Care 80 mg/dl (65-105)
[2023-11-16 16:35] LABS: Ammonia < 9 umol/L (9-30); Ethanol < 10 mg/dL (<10)
[2023-11-16 16:40] LABS: Lactic Acid Reflex 1.6 mmol/L (0.7-2.0)
[2023-11-16 16:42] LABS: Prothrombin Time 23.7 Seconds (11.1-14.7)
[2023-11-16 16:43] LABS: Partial Thromboplastin Time 54.8 SECONDS (22.3-36.8)
[2023-11-16 17:05] LABS: Appearance Urine Cloudy (Clear); Bacteria Urine None Seen /hpf; Bilirubin Urine 1+ (Negative); Blood Urine 3+ (Negative); Color Urine Dark Yellow (Yellow); Glucose Urine UA Negative (Negative); Ketones Urine Negative (Negative); Leukocyte Esterase Ur 1+ LEU/UL (Negative); Need Manual Microscopic Reviewed; Nitrate Urine Negative (Negative); Non Pathogenic Casts 0-2; Protein Urine 2+ mg/dL (Negative); RBC Urine >100 /hpf (0-2); Specific Grav Ur 1.012 (1.001-1.035); Squamous Epithelial Cell Urine Few /hpf (Few); Urobilinogen Urine 0.2 mg/dL (<2.0); WBC Urine 0-5 /hpf; pH Urine 6.5 (5.0-9.0)
[2023-11-16 17:10] LABS: Add Urine Microscopic? YES
[2023-11-16 17:31] LABS: Influenza A QL RT-PCR Negative (Negative); Influenza B QL RT-PCR Negative (Negative); RSV RNA, RT-PCR Negative (Negative); SARS-CoV-2 RNA PCR Positive (Negative)
[2023-11-16 18:10] LABS: Alanine Aminotransferase 19 U/L (6-50); Albumin Level 2.6 g/dL (3.5-5.1); Alkaline Phosphatase 96 U/L (38-126); Anion Gap 4 mmol/L (8-16); Aspartate Amino Transferase 40 U/L (17-59); Bilirubin,Total 0.7 mg/dL (0.2-1.3); Blood Urea Nitrogen 16 mg/dL (9-20); Calcium 7.9 mg/dL (8.4-10.2); Carbon Dioxide 39 mmol/L (22-30); Chloride 91 mmol/L (98-107); Estimated CRCL calculation 36 ml/min; Estimated Glomerular Filt Rate 35; Glucose 83 mg/dL (65-110); Potassium 2.4 mmol/L (3.4-5.0); Sodium 134 mmol/L (137-145)
[2023-11-16 18:36] LABS: Troponin I 0.038 ng/mL (0.000-0.034)
[2023-11-16] MEDS: SODIUM CHLORIDE 0.9% IV 500 ML 999 ML IV CONT ×2 (19:27→20:46)
[2023-11-16 22:30] LABS: Troponin I 0.037 ng/mL (0.000-0.034)
--- NOTE | 2023-11-16 23:18 | PM.IMHP ---
H&P: HPI History of Present Illness Date/Time: 11/16/23 23:18 Chief Complaint: Patient brought in to the ER for evaluation from hemodialysis for evaluation of altered mental status and confusion Narrative: He is an unfortunate male with multiple chronic medical issues who is getting in and out of the hospitals for the last 6 months. He was in the hemodialysis today for his ESRD where he was not acting appropriately hence EMS was called and he was sent to the ER for evaluation. He was confused on arrival and slowly improved while he was in the ER. He had a cough that developed yesterday. Workup was done which showed him to be COVID positive. He became hypoxic and was started on oxygen 4 L via nasal cannula which is slowly being weaned off. CT scan shows adynamic Ileus and known diskitis/osteomyelitis. He is being treated for osteomyelitis of the spine at [facility] and is currently on IV antibiotics. His back pain has significantly improved and he does not complain of any back pain. He had minimally elevated troponin of 0.037 and 0.038. He is not complaining of any chest pain. His potassium level was depleted at 2.4 which is being replaced. 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 Given his chronic medical issues and the fact that he is being admitted mainly in [facility] and [facility] over the last 6 months off and on, we tried our best to transfer the patient to [facility] but was not accepted by his neurosurgeon or the hospitalist. He is being admitted here for medical management, Nephrology evaluation COVID-19 treatment and close follow-up. Review of Systems Review of Systems: 14 systems were reviewed with pertinent positives and negatives per HPI. Except as documented in the HPI/progress notes, all other systems were reviewed and are negative. All systems reviewed & are unremarkable except as noted in HPI and below [facility] Past Medical History Medical History Atrial fibrillation AV fistula 3 attempts BPH (benign prostatic hyperplasia) Depression with anxiety DM2 (diabetes mellitus, type 2) ESRD (end stage renal disease) on dialysis HLD (hyperlipidemia) HTN (hypertension) Obstructive sleep apnea Seizure disorder Surgical History Surgical History H/O carpal tunnel repair H/O cataract extraction H/O cystoscopy H/O eye surgery H/O four vessel coronary artery bypass graft H/O heart artery stent X3 H/O shoulder surgery Left shoulder History of back surgery X3 History of bladder surgery History of parathyroid surgery Hx of nephrostomy Many years ago S/P cubital tunnel release Family History Family History Father No problems noted. Sibling Hypertension Cancer Grandparent Hypertension Diabetes mellitus Mother Ovarian cancer Sibling Cancer Social History Social History Social History: The patient has 5 children in the last child has Down syndrome. That child lives with him and his . 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 Code status full code Smoking status: Never smoker Alcohol intake: never Substance use: never Substance use type: does not use Lack of Transportation: No Lack of Food: Sometimes True Current Housing: I Have Housing Concerned About Future Housing: No Difficulty Paying Gas/Electric Bills: YES Difficulty Paying for Meds: YES Currently Unemployed: No Education: High School Diploma/GED Difficulty w/ Childcare or Family Care: YES Spiritual care concerns: No Meds Home Medicati
[2023-11-17] VITALS (23 sets, daily range): BP systolic 90–135; BP diastolic 50–78; PULSE 67–86; RESP 14–23; TEMP 36.3–37.1; O2SAT 90–100; BMI 16.5; BMI 21.8
--- NOTE | 2023-11-17 00:37 | PC.NURSE ---
00:[address] Ramirez regarding hypotension and hjypokalemia. New order received.
[2023-11-17] MEDS: POTASSIUM CHLORIDE INJ 40 MEQ in SODIUM CHLORIDE 0.9% IV 500 ML 130 MEQ IVPB (00:48)
[2023-11-17] MEDS: REMDESIVIR 200 MG/NS 250 ML 200 MG/250 ML BAG 250 MG IVPB (02:09)
--- NOTE | 2023-11-17 02:29 | ADMIMU ---
This patient, Erma Harmon, was admitted to IMU status, and placed in Intensive Care Unit-4. Patient/family oriented to hospital policies and general routines including ID bracelet, bed and alarms, visiting hours, pain management, procedures, bathroom and other care routines, personal items, smoking policy, room service/diet, and visiting hours. Valuables list has been completed. Information on how to activate the Rapid Response Team has been discussed. Patient/Family are encouraged to report perceived risks to care and to ask questions if they do not understand what they are told or what they should do.
--- NOTE | 2023-11-17 02:59 | PC.NURSE ---
Per the patient and his , his meds have not changed since last admission here in October. Med list obtained from discharge paperwork from prior admission.
[2023-11-17 04:19] LABS: Basophils Percent Auto 1.1 % (0.2-1.2); Eosinophils Percent Auto 0.7 % (0-4.4); Hematocrit 23.9 % (42.0-52.0); Hemoglobin 7.7 g/dL (14.0-18.0); Immature Granulocyte Absolute 0.04 K/mm3 (0.00-0.031); Immature Granulocyte Percent A 1.4 % (0-0.5); Lymphocytes Absolute Auto 0.57 K/mm3 (0.9-3.2); Lymphocytes Percent Auto 20.7 % (18.3-44.2); Mean Corpuscular HGB Conc 32.2 g/dl (32-36); Mean Corpuscular Hemoglobin 32.4 pg (26-34); Mean Corpuscular Volume 100.4 fl (80-100); Mean Platelet Volume 9.8 fl (7.4-10.4); Monocytes Absolute Auto 0.3 K/mm3 (0.1-0.6); Neutrophils Absolute Auto 1.8 K/mm3 (1.3-6.7); Neutrophils Percent Auto 64.1 % (45.5-73.1); Platelet Count Result 160 k/mm3 (150-375); Red Blood Count 2.38 M/mm3 (4.6-6.20); White Blood Count 2.8 K/mm3 (4.5-10.0)
[2023-11-17 04:36] LABS: Anion Gap 8 mmol/L (8-16); Blood Urea Nitrogen 22 mg/dL (9-20); Calcium 7.3 mg/dL (8.4-10.2); Carbon Dioxide 30 mmol/L (22-30); Chloride 98 mmol/L (98-107); Estimated CRCL calculation 22 ml/min; Estimated Glomerular Filt Rate 28; Glucose 75 mg/dL (65-110); Potassium 2.3 mmol/L (3.4-5.0); Sodium 136 mmol/L (137-145)
[2023-11-17 04:58] LABS: Troponin I 0.041 ng/mL (0.000-0.034)
[2023-11-17] MEDS: POTASSIUM CHLORIDE 20 MEQ ER TABLET 40 MEQ PO (05:39)
[2023-11-17] MEDS: KCL 40 MEQ/WATER 100 ML 100 ML 25 ML IVPB (05:40)
--- NOTE | 2023-11-17 06:53 | PC.NURSE ---
After speaking with the facility that the patient came from ([facility]), it was discovered that the patient's cefepime ended on 11/03. The discharge paperwork stated that it should run until 11/18. This RN has notified the dog breeder and the day hospitalist office about this discrepancy. The oncoming RN will be notified as well.
--- NOTE | 2023-11-17 07:21 | ECG_ITS ---
Measurements Intervals [place] Rate: 71 P: -12 [place]: 140 QRS: 6 QRSD: 109 T: 120 QT: 421 QTc: 459 Interpretive Statements SINUS RHYTHM VENTRICULAR PREMATURE COMPLEX POSSIBLE LEFT ATRIAL ENLARGEMENT LOW QRS VOLTAGE IN PRECORDIAL LEADS CONSIDER INFERIOR INFARCT, AGE INDETERMINATE ANTEROSEPTAL INFARCT, AGE INDETERMINATE BORDERLINE ST-T WAVE ABNORMALITY- ANTEROLAT/HIGH LAT LEADS ABNORMAL ECG COMPARED TO ECG 11/16/2023 15:55:37 SINUS RHYTHM NOW PRESENT Electronically Signed On 11-17-2023 7:34:34 VIBRATORY PILE DRIVER by Eliot Lacy D.O.
[2023-11-17 07:37] LABS: Glucose Point of Care 112 mg/dl (65-105)
[2023-11-17] MEDS: PRAMIPEXOLE 0.5 MG TABLET PO ×2 (09:04→16:55)
[2023-11-17] MEDS: APIXABAN 2.5 MG TABLET PO ×2 (09:04→16:55)
[2023-11-17] MEDS: DRONEDARONE HCL 400 MG TABLET PO ×2 (09:04→16:55)
[2023-11-17] MEDS: SEVELAMER CARBONATE 800 MG TABLET PO ×2 (09:04→16:55)
[2023-11-17] MEDS: CYANOCOBALAMIN 1,000 MCG TABLET 1000 MCG PO (09:05)
[2023-11-17] MEDS: LIDOCAINE 5% PATCH 1 PATCH TRANSDERM (09:05)
[2023-11-17] MEDS: LOPERAMIDE HCL 2 MG CAPSULE PO (09:05)
[2023-11-17] MEDS: ASPIRIN 81 MG CHEWABLE TABLET PO (09:05)
[2023-11-17] MEDS: calcitrioL 0.25 MCG CAPSULE PO (09:05)
[2023-11-17] MEDS: CITALOPRAM HYDROBROMIDE 20 MG TABLET PO (09:05)
[2023-11-17] MEDS: MIDODRINE HCL 10 MG TABLET 20 MG PO ×3 (09:06→16:56)
[2023-11-17 12:18] LABS: Glucose Point of Care 100 mg/dl (65-105)
--- NOTE | 2023-11-17 12:35 | P.CONNP_ITS ---
Assessment and Plan Assessment and plan (1) End stage renal disease: Code(s): N18.6 - End stage renal disease Status: Chronic Assessment and Plan: * HD tomorrow * continue outpatient schedule of M/W/F tomorrow * follow electrolytes, volume status, and clearance (2) COVID: Code(s): U07.1 - COVID-19 Status: Acute Assessment and Plan: * requiring supplemental oxygen * wean as tolerated * continue decadron and remdesevir per protocol * respiratory isolation * continue supportive therapy (3) Altered mental status: Code(s): R41.82 - Altered mental status, unspecified Status: Acute Assessment and Plan: * has baseline confusion * worse due to infection/COVID * follow mentation (4) Adynamic ileus: Code(s): K56.0 - Paralytic ileus Status: Chronic Assessment and Plan: * as noted by admission imaging * NPO at this time * noted issue on previous hospitalization * Surgery consulted (5) Acute hypokalemia: Code(s): E87.6 - Hypokalemia Status: Acute Assessment and Plan: * related to poor oral nutrition/oral intake * replace as needed * liberalize diet * adjust potassium bath with dialysis (6) Atrial fibrillation: Code(s): I48.91 - Unspecified atrial fibrillation Status: Chronic Assessment and Plan: * rate control strategy * already on anticoagulation (7) Anemia: Code(s): D64.9 - Anemia, unspecified Status: Chronic Assessment and Plan: * due to ESRD and acute illness * Epogen with HD * follow trend of H/H (8) HTN (hypertension): Code(s): I10 - Essential (primary) hypertension Status: Chronic Assessment and Plan: * reasonable control * follow trend of hemodynaics (9) DM2 (diabetes mellitus, type 2): Code(s): E11.9 - Type 2 diabetes mellitus without complications Status: Chronic Assessment and Plan: * follow accu-cheks * glycemic control per hospitalists I will continue to follow the patient with you while he remains hospitalized and make further recommendations as deemed necessary. Thank you for allowing me to participate in the care of this patient. History of Present Illness Reason for Consult Consult date: 11/17/23 Reason for consult: end stage renal disease Chief Complaint Chief complaint: COVID, Ileus, Hypoxic Respiratory Failure History of Present Illness Narrative: Most of the information that I have obtained is from review of the electronic medical record as well as discussion with his outpatient dialysis unit yesterday as the patient is unable to provide me with any history as to the reason for his presentation to the hospital due to his altered mental status/confusion. The patient is a 73-year-old male with an extensive past medical history as outlined below who was transferred to [facility] Emergency room from outpatient dialysis unit for further evaluation of lethargy and confusion. The patient presented yesterday to his outpatient dialysis unit f or his regularly scheduled dialysis treatment. It was noted by the dialysis nursing staff that the patient's mentation was significantly altered in comparison to his baseline. This change in his mental status was confirmed by his as well. Given the concerns for possible acute infection or some other etiology to his change in mentation, he was sent to the emergency room for further assessment. Upon arrival to the emergency room, the gustavo
--- NOTE | 2023-11-17 12:35 | PM.CNNEP ---
Assessment and Plan Assessment and plan (1) End stage renal disease: Code(s): N18.6 - End stage renal disease Status: Chronic Assessment and Plan: HD tomorrow continue outpatient schedule of M/W/F tomorrow follow electrolytes, volume status, and clearance (2) COVID: Code(s): U07.1 - COVID-19 Status: Acute Assessment and Plan: requiring supplemental oxygen wean as tolerated continue decadron and remdesevir per protocol respiratory isolation continue supportive therapy (3) Altered mental status: Code(s): R41.82 - Altered mental status, unspecified Status: Acute Assessment and Plan: has baseline confusion worse due to infection/COVID follow mentation (4) Adynamic ileus: Code(s): K56.0 - Paralytic ileus Status: Chronic Assessment and Plan: as noted by admission imaging NPO at this time noted issue on previous hospitalization Surgery consulted (5) Acute hypokalemia: Code(s): E87.6 - Hypokalemia Status: Acute Assessment and Plan: related to poor oral nutrition/oral intake replace as needed liberalize diet adjust potassium bath with dialysis (6) Atrial fibrillation: Code(s): I48.91 - Unspecified atrial fibrillation Status: Chronic Assessment and Plan: rate control strategy already on anticoagulation (7) Anemia: Code(s): D64.9 - Anemia, unspecified Status: Chronic Assessment and Plan: due to ESRD and acute illness Epogen with HD follow trend of H/H (8) HTN (hypertension): Code(s): I10 - Essential (primary) hypertension Status: Chronic Assessment and Plan: reasonable control follow trend of hemodynaics (9) DM2 (diabetes mellitus, type 2): Code(s): E11.9 - Type 2 diabetes mellitus without complications Status: Chronic Assessment and Plan: follow accu-cheks glycemic control per hospitalists I will continue to follow the patient with you while he remains hospitalized and make further recommendations as deemed necessary. Thank you for allowing me to participate in the care of this patient. History of Present Illness Reason for Consult Consult date: 11/17/23 Reason for consult: end stage renal disease Chief Complaint Chief complaint: COVID, Ileus, Hypoxic Respiratory Failure History of Present Illness Narrative: Most of the information that I have obtained is from review of the electronic medical record as well as discussion with his outpatient dialysis unit yesterday as the patient is unable to provide me with any history as to the reason for his presentation to the hospital due to his altered mental status/confusion. The patient is a 73-year-old male with an extensive past medical history as outlined below who was transferred to [facility] Emergency room from outpatient dialysis unit for further evaluation of lethargy and confusion. The patient presented yesterday to his outpatient dialysis unit for his regularly scheduled dialysis treatment. It was noted by the dialysis nursing staff that the patient's mentation was significantly altered in comparison to his baseline. This change in his mental status was confirmed by his as well. Given the concerns for possible acute infection or some other etiology to his change in mentation, he was sent to the emergency room for further assessment. Upon arrival to the emergency room, the patient was still somewhat confused but throughout his stay, his mentation seems to slowly improve if not get close to baseline. Subsequent workup and evaluation at that time demonstrated the patient was hypoxic and was requiring supplemental oxygen to maintain his oxygen saturations. Subsequent viral testing demonstrated that the patient was COVID-19 positive. Routine blood work demonstrated labs consistent with his known history of end-stage renal disease
--- NOTE | 2023-11-17 16:34 | PM.IMPN ---
Subjective Date/time seen: 11/17/23 16:34 Interval history: 73M w/ PMH CAD s/p CABG, ESRD on HD MWF, a fib on eliquis, IDDM, DWAYNE, seizure disorder, BPH, depression with anxiety, HTN, HLD, s/p right BKA, diskitis, presents with acute confusion at hemodialysis, admitted on 11/16/23 # acute encephalopathy - now A&Ox3. the patient has recurrent confusion when going to dialysis. prior workup unrevealing. CT brain this admission w/o acute abnormalities. continue to monitor. possible Covid encephalopathy playing a role this time # COVID 19 with acute hypoxic respiratory failure - currently on 2L NC. wean as tolerated. - cont decadron and remdesevir - follow CRP, although pt does have diskitis # ileus - discovered on CT. abdomen is distended but non tender. on miralax. dc'ed imodium. general surgery consulted and we appreciate their assistance - protonix daily # diskitis at L2-L3 - attempt to transfer patient back to [facility] on admission unsuccessful. That appears to have been the correct attempt as repeat CT this admission reveals worsened diskitis since last imaging on 09/22/23. records from last admission at [facility] requested. there has possibly been medication underutilization when he was dc'ed back to his regular living. will restart cefepime. blood cultures pending. follow CRP and ESR although the usefulness may be hard to ascertain as the patient has COVID as well. another attempt at transfer may be necessary # elevated troponins -flat, the pt denies chest pain # hypokalemia - recheck now. replace cautiously. to go for HD again tomorrow # ESRD on HD MWF - nephrology consulted, likely dialysis again tomorrow Tuesday11/18/23 # chronic anemia - HB on 11/17 05/20. transfuse 1 unit - goal HB > 8.0 as pt has CAD FEN: saline lock IV, NPO GI prophylaxis: protonix 40mg IV qday DVT prophylaxis: on apixaban 2.5mg po bid Lines: pIV Code Status: DNR Dispo: guarded More than 35 minutes spent on chart review, patient interaction and assessment and plan. Objective Data Vital Signs Vital Signs: Vital Signs - 24 hr 11/16/23 16:49 11/16/23 18:26 11/16/23 18:37 Temperature Pulse Rate 95 94 Respiratory Rate 18 Blood Pressure 91/58 L Pulse Oximetry 85 L 97 Oxygen Delivery Nasal Cannula Oxygen Flow Rate 4 11/16/23 18:25 11/16/23 18:27 11/16/23 18:30 Temperature Pulse Rate 94 94 94 Respiratory Rate 18 15 Blood Pressure 91/58 L Pulse Oximetry Oxygen Delivery Oxygen Flow Rate 11/16/23 19:15 11/16/23 19:30 11/16/23 19:31 Temperature Pulse Rate 87 86 86 Respiratory Rate 16 Blood Pressure 89/54 L Pulse Oximetry 100 100 Oxygen Delivery Oxygen Flow Rate 11/16/23 19:46 11/16/23 19:10 11/16/23 20:09 Temperature Pulse Rate 85 83 Respiratory Rate 18 Blood Pressure Pulse Oximetry 99 100 99 Oxygen Delivery Nasal Cannula Oxygen Flow Rate 2 11/16/23 20:23 11/16/23 20:30 11/16/23 20:31 Temperature Pulse Rate 83 83 84 Respiratory Rate 19 20 Blood Pressure 83/54 L Pulse Oximetry 100 100 100 Oxygen Delivery Oxygen Flow Rate 11/16/23 20:51 11/16/23 21:00 11/16/23 21:01 Temperature Pulse Rate 81 89 81 Respiratory Rate 20 17 Blood Pressure 91/50 L 91/50 L Pulse Oximetry 98 Oxygen Delivery Oxygen Flow Rate 11/16/23 21:35 11/16/23 21:45 11/16/23 22:01 Temperature Pulse Rate 81 80 77 Respiratory Rate 19 19 Blood Pressure 92/78 L Pulse Oximetry 99 98 Oxygen Delivery Oxygen Flow Rate 11/16/23 22:02 11/16/23 22:15 11/16/23 22:30 Temperature Pulse Rate 79 86 80 Respiratory Rate 20 19 19 Blood Pressure Pulse Oximetry 100 100 100 Oxygen Delivery Oxygen Flow Rate 11/16/23 23:09 11/16/23 23:15 11/16/23 23:33 Temperature Pulse Rate 80 78 77 Respiratory Rate 16 17 17 Blood Pressure Pulse Oximetry 100 100 100 Oxygen Delivery Oxygen Flow Rate 11/16/23 23:48 11/17/23 00:01 11/17/23 00:02 Te
[2023-11-17 16:48] LABS: Anion Gap 6 mmol/L (8-16); Blood Urea Nitrogen 29 mg/dL (9-20); Calcium 7.8 mg/dL (8.4-10.2); Carbon Dioxide 34 mmol/L (22-30); Chloride 97 mmol/L (98-107); Estimated CRCL calculation 24 ml/min; Estimated Glomerular Filt Rate 23; Glucose 90 mg/dL (65-110); Magnesium 1.9 mg/dL (1.6-2.3); Potassium 2.9 mmol/L (3.4-5.0); Sodium 137 mmol/L (137-145)
--- NOTE | 2023-11-17 18:10 | PM.CNGS ---
Assessment and Plan Assessment and plan (1) Adynamic ileus: Code(s): K56.0 - Paralytic ileus Status: Chronic Assessment and Plan: The patient's admission in September, October, and presently all show significant adynamic ileus. The only time it was treated was in September when a nasogastric tube was inserted and large volumes of fluid removed. He did respond and was able to be eating again but readmitted in early October and plain films then are showed again much dilatation of large and small bowel consistent with significant adynamic ileus similar to September and currently. This is not a surgical condition. If patient should become acidotic, developed abdominal pain, or show some signs of ischemia or perforation, we would be happy to see him. Since he is not vomiting, I would hold off on nasogastric tube. If this does happen, NG tube should be placed. It would likely be best to have GI see him. I suspect this adynamic ileus is multifactorial due to his renal failure, cerebrovascular disease, cardiac and peripheral vascular disease as well as chronic back pain. Thank you for asking us to see him. I really have nothing else to offer unless his condition should change. (2) Altered mental status: Code(s): R41.82 - Altered mental status, unspecified Status: Acute Assessment and Plan: Continues to occur about monthly. Etiology unclear. (3) COVID: Code(s): U07.1 - COVID-19 Status: Acute Assessment and Plan: Currently COVID positive which is new. He is under isolation but does not seem to be having symptoms. 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 (5) ESRD (end stage renal disease) on dialysis: Code(s): N18.6 - End stage renal disease; Z99.2 - Dependence on renal dialysis Status: Chronic History of Present Illness Consult details Consult date: 11/17/23 Reason for consult: other (Ileus) Requesting physician: Annette Castillo MD Narrative: Patient is an unfortunate 73-year-old man who was admitted through the emergency room yesterday with confusion or mental status changes while on dialysis. He was also noted to have atrial fib with rapid ventricular rate. He is known to have atrial fibrillation and is on chronic anticoagulation. By the time he came to the emergency room, he was back in sinus rhythm. He was diagnosed with confusion or possibly encephalopathy. He was also noted to be COVID-19 positive by PCR. Chest x-ray in the emergency room showed very dilated colon. A CT scan of the abdomen and pelvis was done and showed dilated small and large bowel consistent with ileus. He is in the IMU and is being monitored. When I saw him, he did not really know that his abdomen was distended. He denies any abdominal pain, nausea, or vomiting. He tells me he would like to eat. I reviewed his CT scan and it does show very dilated small and large bowel with quite a bit of stool in the cecum and ascending colon. The patient is noted by reviewing past records to have been admitted to the hospital 6 times in the last 8 months. I had seen him in September, during that admission, for abdominal ileus. His films were very similar to those taken yesterday. He was treated with a nasogastric tube and had a large output and resumed oral intake. Patient was next admitted in early October. No mention of ileus in this hospitalization was made. However, review of plain abdominal films from 10/20/2023, shows another massive adynamic ileus very similar to the 1 in September and the 1 at present. He is noted to take 17 g of MiraLax daily while at home. He also takes Imodium 2 mg 4 times a day. 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 He has had numerous surgeries including coronary stenting follow
[2023-11-17] MEDS: PREGABALIN (*CRX) 50 MG CAPSULE PO (20:09)
[2023-11-17] MEDS: ATORVASTATIN 40 MG TABLET PO (20:09)
[2023-11-17] MEDS: MELATONIN 3 MG TABLET PO (20:09)
[2023-11-17 20:24] LABS: Glucose Point of Care 72 mg/dl (65-105)
[2023-11-17 20:24] LABS: Glucose Point of Care 85 mg/dl (65-105)
[2023-11-17] MEDS: REMDESIVIR 100 MG/NS 250 ML 100 MG/250 ML BAG 250 MG IVPB (21:00)
[2023-11-17] MEDS: SODIUM CHLORIDE 0.9% IV 250 ML 30 ML IV CONT (21:00)
[2023-11-17 22:30] LABS: Glucose Point of Care 77 mg/dl (65-105)
[2023-11-18] VITALS (29 sets, daily range): BP systolic 73–132; BP diastolic 53–77; PULSE 64–109; RESP 14–20; TEMP 35.9–37.4; O2SAT 94–100
[2023-11-18 04:51] LABS: Basophils Percent Auto 0.2 % (0.2-1.2); Hematocrit 28.4 % (42.0-52.0); Hemoglobin 9.3 g/dL (14.0-18.0); Immature Granulocyte Absolute 0.02 K/mm3 (0.00-0.031); Immature Granulocyte Percent A 0.4 % (0-0.5); Lymphocytes Absolute Auto 1.05 K/mm3 (0.9-3.2); Mean Corpuscular HGB Conc 32.7 g/dl (32-36); Mean Corpuscular Hemoglobin 31.7 pg (26-34); Mean Corpuscular Volume 96.9 fl (80-100); Mean Platelet Volume 9.2 fl (7.4-10.4); Monocytes Absolute Auto 0.4 K/mm3 (0.1-0.6); Monocytes Percent Auto 8.8 % (2.6-8.5); Neutrophils Absolute Auto 3.3 K/mm3 (1.3-6.7); Neutrophils Percent Auto 68.6 % (45.5-73.1); Platelet Count Result 189 k/mm3 (150-375); Red Blood Count 2.93 M/mm3 (4.6-6.20); Red Cell Distribution Width 17.1 % (11.5-14.5); White Blood Count 4.8 K/mm3 (4.5-10.0)
[2023-11-18 05:02] LABS: Anion Gap 7 mmol/L (8-16); Blood Urea Nitrogen 34 mg/dL (9-20); CRP 8.5 mg/dL (<1.0); Calcium 7.8 mg/dL (8.4-10.2); Carbon Dioxide 32 mmol/L (22-30); Chloride 98 mmol/L (98-107); Estimated CRCL calculation 22 ml/min; Estimated Glomerular Filt Rate 21; Glucose 75 mg/dL (65-110); Phosphorus 4.3 mg/dL (2.5-4.5); Potassium 3.2 mmol/L (3.4-5.0); Sodium 137 mmol/L (137-145)
[2023-11-18 05:35] LABS: Procalcitonin 0.9 ng/mL
[2023-11-18 05:41] LABS: Erythrocyte Sedimentation Rate 21 mm/hr (0-20)
[2023-11-18 06:12] LABS: Hepatitis B Surface Antigen Negative (Negative)
[2023-11-18 06:30] LABS: Hepatitis B Surface Anti Res Negative
[2023-11-18 07:38] LABS: Glucose Point of Care 85 mg/dl (65-105)
[2023-11-18] MEDS: calcitrioL 0.25 MCG CAPSULE PO (09:17)
[2023-11-18] MEDS: DRONEDARONE HCL 400 MG TABLET PO (09:17)
[2023-11-18] MEDS: APIXABAN 2.5 MG TABLET PO (09:17)
[2023-11-18] MEDS: ASPIRIN 81 MG CHEWABLE TABLET PO (09:17)
[2023-11-18] MEDS: polyethylene glycoL 3350 17 GM POWD.PACK PO (09:17)
[2023-11-18] MEDS: PRAMIPEXOLE 0.5 MG TABLET PO (09:17)
[2023-11-18] MEDS: CITALOPRAM HYDROBROMIDE 20 MG TABLET PO (09:17)
[2023-11-18] MEDS: SEVELAMER CARBONATE 800 MG TABLET PO (09:17)
[2023-11-18] MEDS: CYANOCOBALAMIN 1,000 MCG TABLET 1000 MCG PO (09:17)
[2023-11-18] MEDS: LIDOCAINE 5% PATCH 1 PATCH TRANSDERM (09:18)
[2023-11-18] MEDS: MIDODRINE HCL 10 MG TABLET 20 MG PO ×2 (09:18→12:44)
[2023-11-18] MEDS: PANTOPRAZOLE SODIUM IV 40 MG VIAL IV PUSH (09:19)
[2023-11-18 13:04] LABS: Glucose Point of Care 78 mg/dl (65-105)
--- NOTE | 2023-11-18 15:25 | WPDGICN ---
Assessment and Plan Assessment and plan (1) COVID: Code(s): U07.1 - COVID-19 Status: Acute Assessment and Plan: this was diagnosed on admission 2 days ago (2) Adynamic ileus: Code(s): K56.0 - Paralytic ileus Status: Chronic Assessment and Plan: CT scan 2 days ago shows a dilated colon consistent with ileus. He has palpably dilated loops of bowel. NG tube has not yet been placed. I will order that immediately. He will need daily KUB. We may need to perform a colonic decompression. He denies chronic constipation, states he has a bowel movement usually once a day. I have reviewed his CT scan. The official reading is: IMPRESSION: 1. Dilated colon, consistent with adynamic ileus. 2. Discitis/osteomyelitis at L2-L3, slightly worsened from 09/22/2023. 3. Moderate-sized right and small left pleural effusions. 4. Small volume of ascites. (3) Elevated troponin: Code(s): R79.89 - Other specified abnormal findings of blood chemistry Status: Acute (4) Acute hypokalemia: Code(s): E87.6 - Hypokalemia Status: Acute Assessment and Plan: Potassium was down to 2.3. I see that last month and also was in the 2s when he was hospitalized. This may have something to do with his ileus. (5) Altered mental status: Code(s): R41.82 - Altered mental status, unspecified Status: Acute Assessment and Plan: He is confused as to when he got here. He recalls driving some more and then ending up here in the hospital. (6) Hemodialysis patient: Code(s): Z99.2 - Dependence on renal dialysis Status: Acute Assessment and Plan: He has been on hemodialysis for few years, according to him. His history is not quite reliable however. 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 INR today is 2.0. Plan insert NG tube immediately. Dulcolax suppository to mobilize and stimulate: Peristalsis KUB now and daily to monitor progress if colonic dilatation worsens, he may need decompression GI Consult Note Consult date/time: 11/18/23 15:25 HPI: Erma Harmon is a 73 year old male Who was admitted last night with COVID and has a severe ileus. He states that he does not recall how he got here he does remember driving home from somewhere yesterday and the next thing he knew he was here in the hospital. Has bruises on his extremities be states that these have been there and do dialysis, not a new a recent injury. I am asked to see him because he has developed what appears to be an adynamic ileus. He does have end-stage renal disease for which she has been on dialysis for a while. He was found to be hypoxic and was started on nasal O2. CT scan shows ileus and diskitis or osteomyelitis. Apparently he has been treated for osteomyelitis at [facility] and is chronically on intravenous antibiotics. Potassium level was very low at 2.4 Review of Systems Review of Systems: All systems reviewed & are unremarkable except as noted in HPI and below PMFSH Past Medical History Medical History Atrial fibrillation AV fistula 3 attempts BPH (benign prostatic hyperplasia) Depression with anxiety DM2 (diabetes mellitus, type 2) ESRD (end stage renal disease) on dialysis HLD (hyperlipidemia) HTN (hypertension) Obstructive sleep apnea Seizure disorder Surgical History Surgical History H/O carpal tunnel repair H/O cataract extraction H/O cystoscopy H/O eye surgery H/O four vessel coronary artery bypass graft H/O heart artery stent X3 H/O shoulder surgery Left shoulder History of back surgery X3 History of bladder surgery History of parathyroid surgery Hx of nep
--- NOTE | 2023-11-18 15:51 | PC.NURSE ---
pt went to dialysis department, to their isolation room via bed and two assist at this time, [id number]
--- NOTE | 2023-11-18 16:20 | PM.PNNEP ---
Progress Note: A&P Assessment and Plan (1) End stage renal disease: Code(s): N18.6 - End stage renal disease Status: Chronic Assessment and Plan: HD today continue M/W/F outpatient dialysis schedule follow electrolytes, volume status, and clearance (2) Altered mental status: Code(s): R41.82 - Altered mental status, unspecified Status: Acute Assessment and Plan: has baseline confusion furthermore, he waxes and wanes with his mentation at baseline repeat CT scan of head noted continue supportive therapy (3) COVID: Code(s): U07.1 - COVID-19 Status: Acute Assessment and Plan: seems to be doing better but still requiring oxygen continue supplemental oxygen and wean as tolerated on decadron and remdesevir per protocol follow CXR and respiratory status (4) Adynamic ileus: Code(s): K56.0 - Paralytic ileus Status: Chronic Assessment and Plan: chronic issue as noted by evaluation to date Surgery and GI recommendations noted NPO at this time on TPN support any further intervnetion needed(?) (5) Acute hypokalemia: Code(s): E87.6 - Hypokalemia Status: Acute Assessment and Plan: also fluctuates related to poor oral nutrition/oral intake replace as needed and on chronic supplementation adjust dialysis bath to compensate as well liberalize diet (but NPO) (6) Atrial fibrillation: Code(s): I48.91 - Unspecified atrial fibrillation Status: Chronic Assessment and Plan: rate control strategy already on anticoagulation (7) Anemia: Code(s): D64.9 - Anemia, unspecified Status: Chronic Assessment and Plan: due to ESRD and acute illness Epogen with HD PRBC transfusion per protocol follow H/H (8) HTN (hypertension): Code(s): I10 - Essential (primary) hypertension Status: Chronic Assessment and Plan: despite history, BP runs soft/on the low side on midodrine already follow trend of hemodynamics (9) DM2 (diabetes mellitus, type 2): Code(s): E11.9 - Type 2 diabetes mellitus without complications Status: Chronic Assessment and Plan: follow accu-cheks glycemic control per hospitalists Will oontinue to follow. Subjective Date/time seen: 11/18/23 16:20 Interval history: Follow-up for end stage renal disease on hemodialysis. Tolerated dialysis treatment at the time of my visit (seen on HD at 4:10PM); seen by Surgery and well as Gastroenterolgy for ileus with recommendations noted; no apparent dsitress noted. Exam Narrative: General: somewhat chronically ill appearing male in NAD Heart: normal S1 and S2; no rub Lungs: clear bilaterally Abdomen: soft, nontender, positive bowel sounds Extremities: no cyanosis or clubbing; s/p right AKA Skin: warm and dry Objective Data Vital Signs Vital Signs: Vital Signs Temp Pulse Resp BP Pulse Ox O2 Del Method O2 Flow Rate 11/18/23 14:00 70 11/18/23 12:00 69 11/18/23 12:00 70 16 100 Nasal Cannula 3 11/18/23 12:00 96.9 F L 70 16 110/61 100 11/18/23 10:00 109 H 11/18/23 08:00 67 20 100 Nasal Cannula 3 11/18/23 08:00 67 11/18/23 07:44 96.6 F L 69 20 106/60 100 11/18/23 07:36 69 11/18/23 04:00 65 17 100 Nasal Cannula 3 11/18/23 04:00 96.7 F L 65 17 119/53 L 100 11/18/23 02:00 66 11/18/23 00:00 67 11/18/23 00:00 97.1 F L 70 18 121/62 97 11/18/23 00:00 70 17 100 Nasal Cannula 3 11/18/23 00:33 97.1 F L 67 18 128/77 100 11/18/23 00:14 97.1 F L 75 17 132/62 100 11/17/23 23:14 97.3 F L 68 23 H 134/62 100 11/17/23 22:14 97.3 F L 80 17 129/69 93 11/17/23 21:14 97.3 F L 68 17 129/69 93 11/17/23 22:00 80 11/17/23 20:00 71 11/17/23 21:13 97.4 F L 69 18 133/62 93 11/17/23 20:00
--- NOTE | 2023-11-18 16:20 | P.PNNP_ITS ---
Progress Note: A&P Assessment and Plan (1) End stage renal disease: Code(s): N18.6 - End stage renal disease Status: Chronic Assessment and Plan: * HD today * continue M/W/ outpatient dialysis schedule * follow electrolytes, volume status, and clearance (2) Altered mental status: Code(s): R41.82 - Altered mental status, unspecified Status: Acute Assessment and Plan: * has baseline confusion * furthermore, he waxes and wanes with his mentation at baseline * repeat CT scan of head noted * continue supportive therapy (3) COVID: Code(s): U07.1 - COVID-19 Status: Acute Assessment and Plan: * seems to be doing better but still requiring oxygen * continue supplemental oxygen and wean as tolerated * on decadron and remdesevir per protocol * follow CXR and respiratory status (4) Adynamic ileus: Code(s): K56.0 - Paralytic ileus Status: Chronic Assessment and Plan: * chronic issue as noted by evaluation to date * Surgery and GI recommendations noted * NPO at this time * on TPN support * any further intervnetion needed(?) (5) Acute hypokalemia: Code(s): E87.6 - Hypokalemia Status: Acute Assessment and Plan: * also fluctuates * related to poor oral nutrition/oral intake * replace as needed and on chronic supplementation * adjust dialysis bath to compensate as well * liberalize diet (but NPO) (6) Atrial fibrillation: Code(s): I48.91 - Unspecified atrial fibrillation Status: Chronic Assessment and Plan: * rate control strategy * already on anticoagulation (7) Anemia: Code(s): D64.9 - Anemia, unspecified Status: Chronic Assessment and Plan: * due to ESRD and acute illness * Epogen with HD * PRBC transfusion per protocol * follow H/H (8) HTN (hypertension): Code(s): I10 - Essential (primary) hypertension Status: Chronic Assessment and Plan: * despite history, BP runs soft/on the low side * on midodrine already * follow trend of hemodynamics (9) DM2 (diabetes mellitus, type 2): Code(s): E11.9 - Type 2 diabetes mellitus without complications Status: Chronic Assessment and Plan: * follow accu-cheks * glycemic control per hospitalists Will oontinue to follow. Subjective Date/time seen: 11/18/23 16:20 Interval history: Follow-up for end stage renal disease on hemodialysis. Tolerated dialysis treatment at the time of my visit (seen on HD at 4:10PM); seen by Surgery and well as Gastroenterolgy for ileus with recommendations noted; no apparent dsitress noted. Exam Narrative: General: somewhat chronically ill appearing male in NAD Heart: normal S1 and S2; no rub Lungs: clear bilaterally Abdomen: soft, nontender, positive bowel sounds Extremities: no cyanosis or clubbing; s/p right AKA Skin: warm and dry Objective Data Vital Signs Vital Signs: Vital Signs Temp Pulse Resp BP Pulse Ox O2 Del Method O2 Flow Rate 11/18/23 14:00 70 11/18/23 12:00 69 11/18/23 12:00 70 16 100 Nasal Cannula 3 11/18/23 12:00 96.9 F L 70 16 110/61 100 11/18/23 10:00 109 H 11/18/23 08:00 67 20 100 Nasal Cannula 3 11/18/23 08:00 67
--- NOTE | 2023-11-18 17:04 | PM.IMPN ---
Progress Note: A&P Assessment and Plan (1) COVID: Code(s): U07.1 - COVID-19 Status: Acute (2) Discitis of lumbar region: Code(s): M46.46 - Discitis, unspecified, lumbar region Status: Acute (3) Acute hypokalemia: Code(s): E87.6 - Hypokalemia Status: Acute (4) Adynamic ileus: Code(s): K56.0 - Paralytic ileus Status: Chronic (5) Acute hypoxemic respiratory failure: Code(s): J96.01 - Acute respiratory failure with hypoxia Status: Acute Plan cont o2 supplementation, decadron and remdesevir. cont HD per nephrology GI consult appreciated, NG tube being placed, monitor for need to decompress bowels. the pt is otherwise stable. Subjective Date/time seen: 11/18/23 17:04 Interval history: naoe. the patient has no complaints, same as yesterday. he denies BM, denies abdominal pain, nausea, vomiting, pain anywhere, Review of Systems Review of Systems: All systems reviewed & are unremarkable except as noted in HPI and below (subjective) Exam Const: General: comfortable and no acute distress Eyes: Pupils: Equal, round and reactive pupils present Resp: Effort & Inspection: normal respiratory effort Auscultation: clear to auscultation bilaterally Cardio: Rate: regular rate Rhythm: regular rhythm Heart sounds: no gallops, no murmurs and no rubs GI: Inspection: distended GI Palp: Yes Soft to palpation and No Tenderness to palpation present (GI) Other: hypertympanic BS Objective Data Vital Signs Vital Signs: Vital Signs - 24 hr 11/17/23 18:00 11/17/23 20:58 11/17/23 20:00 Temperature 97.5 F L Pulse Rate 67 70 70 Respiratory Rate 17 17 Blood Pressure 135/60 Pulse Oximetry 90 93 Oxygen Delivery Nasal Cannula Oxygen Flow Rate 2 11/17/23 20:00 11/17/23 21:13 11/17/23 20:00 Temperature 97.8 F 97.4 F L Pulse Rate 67 69 71 Respiratory Rate 17 18 Blood Pressure 127/60 133/62 Pulse Oximetry 100 93 Oxygen Delivery Oxygen Flow Rate 11/17/23 22:00 11/17/23 21:14 11/17/23 22:14 Temperature 97.3 F L 97.3 F L Pulse Rate 80 68 80 Respiratory Rate 17 17 Blood Pressure 129/69 129/69 Pulse Oximetry 93 93 Oxygen Delivery Oxygen Flow Rate 11/17/23 23:14 11/18/23 00:14 11/18/23 00:33 Temperature 97.3 F L 97.1 F L 97.1 F L Pulse Rate 68 75 67 Respiratory Rate 23 H 17 18 Blood Pressure 134/62 132/62 128/77 Pulse Oximetry 100 100 100 Oxygen Delivery Oxygen Flow Rate 11/18/23 00:00 11/18/23 00:00 11/18/23 00:00 Temperature 97.1 F L Pulse Rate 70 70 67 Respiratory Rate 17 18 Blood Pressure 121/62 Pulse Oximetry 100 97 Oxygen Delivery Nasal Cannula Oxygen Flow Rate 3 11/18/23 02:00 11/18/23 04:00 11/18/23 04:00 Temperature 96.7 F L Pulse Rate 66 65 65 Respiratory Rate 17 17 Blood Pressure 119/53 L Pulse Oximetry 100 100 Oxygen Delivery Nasal Cannula Oxygen Flow Rate 3 11/18/23 07:36 11/18/23 07:44 11/18/23 08:00 Temperature 96.6 F L Pulse Rate 69 69 67 Respiratory Rate 20 Blood Pressure 106/60 Pulse Oximetry 100 Oxygen Delivery Oxygen Flow Rate 11/18/23 08:00 11/18/23 10:00 11/18/23 12:00 Temperature 96.9 F L Pulse Rate 67 109 H 70 Respiratory Rate 20 16 Blood Pressure 110/61 Pulse Oximetry 100 100 Oxygen Delivery Nasal Cannula Oxygen Flow Rate 3 11/18/23 12:00 11/18/23 12:00 11/18/23 14:00 Temperature Pulse Rate 70 69 70 Respiratory Rate 16 Blood Pressure Pulse Oximetry 100 Oxygen Delivery Nasal Cannula Oxygen Flow Rate 3 Intake/Output Intake/Output: Intake & Output 11/15/23 11/16/23 11/17/23 11/18/23 23:59 23:59 23:59 23:59 Intake Total 1000 200 350 Output Total 300 250 100 Balance 700 -50 250 Meds/Results Medications: Active Medications Generic Name Dose Route Start Last Admin Trade Name Freq PRN Reason Stop Dose Admin Acetaminophen 650 mg 11/17/23 03:14 Acetaminophe
[2023-11-18] MEDS: EPOETIN ALFA-EPBX 10,000 UNITS/ML VIAL 10000 UNITS IV PUSH (17:36)
[2023-11-18 18:12] LABS: Lactic Acid Reflex < 0.5 mmol/L (0.7-2.0)
[2023-11-18] MEDS: CEFEPIME 1 GM/NS 50 ML 1 GM/50 ML BAG IVPB (20:59)
[2023-11-18] MEDS: PREGABALIN (*CRX) 50 MG CAPSULE PO (20:59)
[2023-11-18] MEDS: MELATONIN 3 MG TABLET PO (20:59)
[2023-11-18] MEDS: ATORVASTATIN 40 MG TABLET PO (20:59)
[2023-11-18] MEDS: BISACODYL 10 MG SUPPOSITORY RECTAL (20:59)
[2023-11-18] MEDS: REMDESIVIR 100 MG/NS 250 ML 100 MG/250 ML BAG 250 MG IVPB (22:04)
--- NOTE | 2023-11-18 22:30 | PC.NURSE ---
This RN and 2nd RN attempted to insert NG tube into right and left nostrils without success. Patient stated he has had a NG tube in the past and they had difficulty then as well. KUB obtained as ordered.
[2023-11-18 23:59] LABS: Glucose Point of Care 70 mg/dl (65-105)
[2023-11-19] VITALS (15 sets, daily range): BP systolic 97–127; BP diastolic 45–61; PULSE 70–98; RESP 16–21; TEMP 36.3–36.7; O2SAT 91–99
[2023-11-19] MEDS: DEXTROSE 50% 25 GM/50 ML SYRINGE IV PUSH ×2 (05:33→21:15)
[2023-11-19 06:01] LABS: Glucose Point of Care 101 mg/dl (65-105)
[2023-11-19 06:01] LABS: Glucose Point of Care 69 mg/dl (65-105)
[2023-11-19 06:02] LABS: Hematocrit 27.1 % (42.0-52.0); Hemoglobin 8.5 g/dL (14.0-18.0); Immature Granulocyte Absolute 0.03 K/mm3 (0.00-0.031); Immature Granulocyte Percent A 0.6 % (0-0.5); Lymphocytes Absolute Auto 0.86 K/mm3 (0.9-3.2); Mean Corpuscular HGB Conc 31.4 g/dl (32-36); Mean Corpuscular Hemoglobin 31.6 pg (26-34); Mean Corpuscular Volume 100.7 fl (80-100); Mean Platelet Volume 9.2 fl (7.4-10.4); Monocytes Absolute Auto 0.2 K/mm3 (0.1-0.6); Monocytes Percent Auto 4.5 % (2.6-8.5); Neutrophils Absolute Auto 4.2 K/mm3 (1.3-6.7); Neutrophils Percent Auto 78.9 % (45.5-73.1); Platelet Count Result 185 k/mm3 (150-375); Red Blood Count 2.69 M/mm3 (4.6-6.20); Red Cell Distribution Width 18.1 % (11.5-14.5); White Blood Count 5.4 K/mm3 (4.5-10.0)
[2023-11-19 06:08] LABS: Anion Gap 4 mmol/L (8-16); Blood Urea Nitrogen 21 mg/dL (9-20); Calcium 8.1 mg/dL (8.4-10.2); Carbon Dioxide 30 mmol/L (22-30); Chloride 104 mmol/L (98-107); Estimated CRCL calculation 35 ml/min; Estimated Glomerular Filt Rate 35; Glucose 108 mg/dL (65-110); Potassium 3.7 mmol/L (3.4-5.0); Sodium 138 mmol/L (137-145)
[2023-11-19] MEDS: APIXABAN 2.5 MG TABLET PO ×2 (08:52→18:23)
[2023-11-19] MEDS: MIDODRINE HCL 10 MG TABLET 20 MG PO ×3 (08:52→18:23)
[2023-11-19] MEDS: ASPIRIN 81 MG CHEWABLE TABLET PO (08:52)
[2023-11-19] MEDS: DRONEDARONE HCL 400 MG TABLET PO ×2 (08:52→18:23)
[2023-11-19] MEDS: PANTOPRAZOLE SODIUM IV 40 MG VIAL IV PUSH (08:53)
[2023-11-19 09:10] LABS: Glucose Point of Care 99 mg/dl (65-105)
--- NOTE | 2023-11-19 09:16 | PM.PNNEP ---
Progress Note: A&P Assessment and Plan (1) End stage renal disease: Code(s): N18.6 - End stage renal disease Status: Chronic Assessment and Plan: HD yesterday continue M/W/ outpatient dialysis schedule follow electrolytes, volume status, and clearance (2) Altered mental status: Code(s): R41.82 - Altered mental status, unspecified Status: Acute Assessment and Plan: has baseline confusion furthermore, he waxes and wanes with his mentation at baseline repeat CT scan of head noted continue supportive therapy (3) COVID: Code(s): U07.1 - COVID-19 Status: Acute Assessment and Plan: seems to be doing better but still requiring oxygen continue supplemental oxygen and wean as tolerated on decadron and remdesevir per protocol follow CXR and respiratory status (4) Adynamic ileus: Code(s): K56.0 - Paralytic ileus Status: Chronic Assessment and Plan: chronic issue as noted by evaluation to date Surgery and GI recommendations noted NPO at this time NG tube to be placed (5) Acute hypokalemia: Code(s): E87.6 - Hypokalemia Status: Acute Assessment and Plan: also fluctuates related to poor oral nutrition/oral intake replace as needed and on chronic supplementation adjust dialysis bath to compensate as well liberalize diet (but NPO) (6) Atrial fibrillation: Code(s): I48.91 - Unspecified atrial fibrillation Status: Chronic Assessment and Plan: rate control strategy already on anticoagulation (7) Anemia: Code(s): D64.9 - Anemia, unspecified Status: Chronic Assessment and Plan: due to ESRD and acute illness Epogen with HD PRBC transfusion per protocol follow H/H (8) HTN (hypertension): Code(s): I10 - Essential (primary) hypertension Status: Chronic Assessment and Plan: despite history, BP runs soft/on the low side on midodrine already follow trend of hemodynamics (9) DM2 (diabetes mellitus, type 2): Code(s): E11.9 - Type 2 diabetes mellitus without complications Status: Chronic Assessment and Plan: follow accu-cheks glycemic control per hospitalists Will oontinue to follow. Subjective Date/time seen: 11/19/23 09:16 Interval history: Follow-up for end stage renal disease on hemodialysis. Tolerated hemodialysis treatment yesterday afternoon without any issues or problems; nursing was unable to place NG tube yesterdays despite numerous attempts; noted plans for Radiology to try and place NG tube. Exam Narrative: General: somewhat chronically ill appearing male in NAD Heart: normal S1 and S2; no rub Lungs: coarse breath sounds Abdomen: soft, nontender, positive bowel sounds Extremities: no cyanosis or clubbing; s/p right AKA Skin: warm and intact Objective Data Vital Signs Vital Signs: Vital Signs Temp Pulse Resp BP Pulse Ox O2 Del Method O2 Flow Rate 11/19/23 09:00 72 11/19/23 08:52 76 11/19/23 08:00 97.6 F 71 17 124/57 L 93 11/19/23 08:00 70 11/19/23 06:00 73 11/19/23 04:00 97.9 F 74 18 106/45 L 96 Nasal Cannula 2 11/19/23 04:00 74 11/19/23 02:00 76 11/19/23 00:00 98.1 F 73 19 108/59 L 96 11/19/23 00:00 96 Nasal Cannula 2 11/19/23 00:00 73 11/18/23 22:00 79 11/18/23 20:00 97.7 F 70 19 106/59 L 94 11/18/23 20:00 94 Nasal Cannula 3 11/18/23 20:00 70 11/18/23 19:09 75 94/63 L 11/18/23 19:00 75 73/59 L 11/18/23 18:45 72 98/59 L 11/18/23 18:30 73 101/57 L 11/18/23 18:15 71 115/66 11/18/23 18:00 73 106/60 11/18/23 17:45 74 105/58 L 11/18/23 17:30 70 100/65 11/18/23 17:15 70 98/57 L 11/18/23 16:45 72 101/60 11/18/23 16:30 72 82/67 L 11/18/23 16:15 71 99/61 L
--- NOTE | 2023-11-19 09:16 | P.PNNP_ITS ---
Progress Note: A&P Assessment and Plan (1) End stage renal disease: Code(s): N18.6 - End stage renal disease Status: Chronic Assessment and Plan: * HD yesterday * continue M/W/ outpatient dialysis schedule * follow electrolytes, volume status, and clearance (2) Altered mental status: Code(s): R41.82 - Altered mental status, unspecified Status: Acute Assessment and Plan: * has baseline confusion * furthermore, he waxes and wanes with his mentation at baseline * repeat CT scan of head noted * continue supportive therapy (3) COVID: Code(s): U07.1 - COVID-19 Status: Acute Assessment and Plan: * seems to be doing better but still requiring oxygen * continue supplemental oxygen and wean as tolerated * on decadron and remdesevir per protocol * follow CXR and respiratory status (4) Adynamic ileus: Code(s): K56.0 - Paralytic ileus Status: Chronic Assessment and Plan: * chronic issue as noted by evaluation to date * Surgery and GI recommendations noted * NPO at this time * NG tube to be placed (5) Acute hypokalemia: Code(s): E87.6 - Hypokalemia Status: Acute Assessment and Plan: * also fluctuates * related to poor oral nutrition/oral intake * replace as needed and on chronic supplementation * adjust dialysis bath to compensate as well * liberalize diet (but NPO) (6) Atrial fibrillation: Code(s): I48.91 - Unspecified atrial fibrillation Status: Chronic Assessment and Plan: * rate control strategy * already on anticoagulation (7) Anemia: Code(s): D64.9 - Anemia, unspecified Status: Chronic Assessment and Plan: * due to ESRD and acute illness * Epogen with HD * PRBC transfusion per protocol * follow H/H (8) HTN (hypertension): Code(s): I10 - Essential (primary) hypertension Status: Chronic Assessment and Plan: * despite history, BP runs soft/on the low side * on midodrine already * follow trend of hemodynamics (9) DM2 (diabetes mellitus, type 2): Code(s): E11.9 - Type 2 diabetes mellitus without complications Status: Chronic Assessment and Plan: * follow accu-cheks * glycemic control per hospitalists Will oontinue to follow. Subjective Date/time seen: 11/19/23 09:16 Interval history: Follow-up for end stage renal disease on hemodialysis. Tolerated hemodialysis treatment yesterday afternoon without any issues or problems; nursing was unable to place NG tube yesterdays despite numerous attempts; noted plans for Radiology to try and place NG tube. Exam Narrative: General: somewhat chronically ill appearing male in NAD Heart: normal S1 and S2; no rub Lungs: coarse breath sounds Abdomen: soft, nontender, positive bowel sounds Extremities: no cyanosis or clubbing; s/p right AKA Skin: warm and intact Objective Data Vital Signs Vital Signs: Vital Signs Temp Pulse Resp BP Pulse Ox O2 Del Method O2 Flow Rate 11/19/23 09:00 72 11/19/23 08:52 76 11/19/23 08:00 97.6 F 71 17 124/57 L 93 11/19/23 08:00 70 11/19/23 06:00 73 11/19/23 04:00 97.9 F 74 18 106/45 L 96 Nasal Cannula 2 11/19/23 04:00 74 11/19/23 02
--- NOTE | 2023-11-19 11:28 | WPDGIPROGNO ---
Progress Note: A&P Assessment and Plan (1) COVID: Code(s): U07.1 - COVID-19 Status: Acute Assessment and Plan: this was diagnosed on admission 2 days ago (2) Adynamic ileus: Code(s): K56.0 - Paralytic ileus Status: Chronic Assessment and Plan: CT scan 2 days ago shows a dilated colon consistent with ileus. He has palpably dilated loops of bowel. NG tube has not yet been placed. I will order that immediately. He will need daily KUB. We may need to perform a colonic decompression. He denies chronic constipation, states he has a bowel movement usually once a day. I have reviewed his CT scan. The official reading is: IMPRESSION: 1. Dilated colon, consistent with adynamic ileus. 2. Discitis/osteomyelitis at L2-L3, slightly worsened from 09/22/2023. 3. Moderate-sized right and small left pleural effusions. 4. Small volume of ascites. 11/19/2023 this is clearly an ongoing, chronic issue with him. I see that he was hospitalized in August with similar dilatation of the bowel. He she with NG suction and seen by surgery at that time. X-rays that showed dilated bowel both large and small bowel. Again last month, CT shows similar findings, specifically: 1. Persistent colonic distention with air-fluid levels which could reflect adynamic ileus. 2. Small pleural effusions with associated passive atelectasis in the visualized lung bases. (3) Elevated troponin: Code(s): R79.89 - Other specified abnormal findings of blood chemistry Status: Acute (4) Acute hypokalemia: Code(s): E87.6 - Hypokalemia Status: Acute Assessment and Plan: Potassium was down to 2.3. I see that last month and also was in the 2s when he was hospitalized. This may have something to do with his ileus. I see, looking back, that his potassium was in the area of 2.8 when he was hospitalized in August and again in September. We may need Nephrology to assist with keeping his potassium in the normal range. (5) Altered mental status: Code(s): R41.82 - Altered mental status, unspecified Status: Acute Assessment and Plan: He is confused as to when he got here. He recalls driving some more and then ending up here in the hospital. (6) Hemodialysis patient: Code(s): Z99.2 - Dependence on renal dialysis Status: Acute Assessment and Plan: He has been on hemodialysis for few years, according to him. His history is not quite reliable however. (7) Anticoagulant long-term use: Code(s): Z79.01 - skilled nursing (current) use of anticoagulants Status: Chronic Assessment and Plan: he is on long-term anticoagulation with Eliquis. INR today is 2.0. Plan insert NG tube immediately. Dulcolax suppository to mobilize and stimulate: Peristalsis KUB now and daily to monitor progress if colonic dilatation worsens, he may need decompression Awaiting NG tube placement will begin metoclopramide Subjective Date/time seen: 11/19/23 11:28 He appears comfortable. Does not complain when I examine his abdomen. staff was unable to place NG tube. We have requested Radiology attempt to do so. I see, looking back that 2 admissions, 1 each in August and September he had distention of small and large bowel and was treated conservatively with nasogastric suction. Exam Const: General: cooperative and healthy appearing Orientation/consciousness: patient oriented x3 HENMT: Head: normal to inspection Ears: hearing grossly normal bilaterally Mouth: Yes Normal oral and palatal mucosa present Eyes: General: appearance normal, both eyes and all related structures Neck: Neck: normal visual inspection Chest: Chest palpation & inspection: normal inspection of the chest Resp: Effort & Inspection: normal respiratory effort Auscultation: clear to auscultation bilaterally Cardio: Rate: regular rate Rhythm: regular rhythm GI: Inspection: dist
--- NOTE | 2023-11-19 11:57 | PM.IMPN ---
Progress Note: A&P Assessment and Plan (1) COVID: Code(s): U07.1 - COVID-19 Status: Acute (2) Discitis of lumbar region: Code(s): M46.46 - Discitis, unspecified, lumbar region Status: Acute (3) Acute hypokalemia: Code(s): E87.6 - Hypokalemia Status: Acute (4) Adynamic ileus: Code(s): K56.0 - Paralytic ileus Status: Chronic (5) Acute hypoxemic respiratory failure: Code(s): J96.01 - Acute respiratory failure with hypoxia Status: Acute (6) Weakness: Code(s): R53.1 - Weakness Status: Acute (7) Hemodialysis patient: Code(s): Z99.2 - Dependence on renal dialysis Status: Acute (8) Anticoagulant long-term use: Code(s): Z79.01 - [facility] (current) use of anticoagulants Status: Chronic Plan 73M w/ PMH HTN, IDDM, a fib on eliquis, CAD s/p CABG, COPD, HLD, hyperthyroidism, ESRD on HD MWF via LUE AV fistula, right knee septic arthritis s/p AKA, L2-L4 osteomyelitis/diskitis, moderate-severe , gout, anemia, remote history of seizures presented with acute confusion during HD session, admitted on 11/16/23 # acute encephalopathy - now A&Ox3. the patient has recurrent confusion when going to dialysis. prior workup unrevealing. CT brain this admission w/o acute abnormalities. continue to monitor. possible Covid encephalopathy playing a role this time # COVID 19 with acute hypoxic respiratory failure - currently on 2L NC. wean as tolerated. - cont decadron and remdesevir - follow CRP, although pt does have diskitis # ileus - discovered on CT. abdomen is distended but non tender - GI consulted. reglan started. NG tube placement unsuccessful x2, pending placement by radiology. # diskitis/osteomyeltitis at L2-L4 - treated initially in august 2023 at [facility], was on cefepime at discharge but there are reports by nursing he may have not received those abx. on admission the diskitis appears slightly worsened on CT scan abd/pelv. transfer from ER rejected by [facility]. The patient does not believe he has it due to his pain being improved and now does not want to be transferred. It is likely a chronic issue as he is not currently septic, however the best we could offer is ongoing abx and close follow up with ID as outpatient - cont cefepime # elevated troponins -flat, the pt denies chest pain # hypokalemia - replace per nephrology # ESRD on HD MWF - nephrology consulted. he is on schedule. # chronic anemia - HB on 11/17 05/20. transfuse 1 unit - goal HB > 8.0 as pt has CAD FEN: saline lock IV, NPO GI prophylaxis: protonix 40mg IV qday DVT prophylaxis: on apixaban 2.5mg po bid Lines: pIV, d/c lopes on 11/19 Code Status: DNR Dispo: guarded More than 35 minutes spent on chart review, patient interaction and assessment and plan. Subjective Date/time seen: 11/19/23 11:57 Interval history: NAOE. patient is without complaints. he feels he does not have an infection in the back because his pain is gone. he does not want transfer for this issue Review of Systems Review of Systems: All systems reviewed & are unremarkable except as noted in HPI and below (subjective) Exam Const: General: comfortable and no acute distress Other: A&Ox3 Eyes: Pupils: Equal, round and reactive pupils present Resp: Effort & Inspection: normal respiratory effort Auscultation: clear to auscultation bilaterally Cardio: Rate: regular rate Rhythm: regular rhythm GI: Inspection: distended GI Palp: No Tenderness to palpation present (GI) and No Guarding due to palpation present (GI) Extrem: General: no edema Objective Data Vital Signs Vital Signs: Vital Signs - 24 hr 11/18/23 12:00 11/18/23 12:00 11/18/23 12:00 Temperature 96.9 F L Pulse Rate 70 70 69 Respiratory Rate 16 16 Blood Pressure 110/61 Pulse Oximetry 100 100 Oxygen Delivery Nasal Cannula Oxygen Flow Rate 3 Fraction of Inspired Oxygen 11/18/23 14:00 11/18/23 15:
[2023-11-19] MEDS: PRAMIPEXOLE 0.5 MG TABLET PO ×2 (12:02→18:23)
[2023-11-19] MEDS: calcitrioL 0.25 MCG CAPSULE PO (12:02)
[2023-11-19] MEDS: CYANOCOBALAMIN 1,000 MCG TABLET 1000 MCG PO (12:02)
[2023-11-19] MEDS: LIDOCAINE 5% PATCH 1 PATCH TRANSDERM (12:03)
[2023-11-19] MEDS: METOCLOPRAMIDE HCL INJ 10 MG/2 ML VIAL IV PUSH ×3 (12:41→23:55)
[2023-11-19 12:49] LABS: Glucose Point of Care 95 mg/dl (65-105)
--- NOTE | 2023-11-19 12:59 | PC.NURSE ---
Patient of the floor for NG placement via fluoroscopy.
--- NOTE | 2023-11-19 13:42 | PC.NURSE ---
Dr. Castillo updated on unsuccessful NG placement.
[2023-11-19] MEDS: CENTRAL LINE FLUSH 10 ML IV PUSH ×2 (14:14→20:15)
--- NOTE | 2023-11-19 14:31 | PC.NURSE ---
This patient, Erma Harmon, was transferred to [facility] via bed on 11/19/23 at 1430. Personal belongings sent with patient. Report given to CHARLETTE Mills. Appropriate documentation sent with patient.
[2023-11-19 17:41] LABS: Glucose Point of Care 82 mg/dl (65-105)
[2023-11-19] MEDS: SEVELAMER CARBONATE 800 MG TABLET PO (18:23)
[2023-11-19] MEDS: CEFEPIME 1 GM/NS 50 ML 1 GM/50 ML BAG IVPB (18:53)
[2023-11-19] MEDS: ATORVASTATIN 40 MG TABLET PO (20:11)
[2023-11-19] MEDS: PREGABALIN (*CRX) 50 MG CAPSULE PO (20:11)
[2023-11-19] MEDS: MELATONIN 3 MG TABLET PO (20:11)
[2023-11-19 20:28] LABS: Glucose Point of Care 69 mg/dl (65-105)
[2023-11-19] MEDS: REMDESIVIR 100 MG/NS 250 ML 100 MG/250 ML BAG 250 MG IVPB (22:08)
[2023-11-19 22:14] LABS: Glucose Point of Care 106 mg/dl (65-105)
[2023-11-19] MEDS: ACETAMINOPHEN 325 MG TABLET 650 MG PO (23:54)
[2023-11-19 23:56] LABS: Glucose Point of Care 86 mg/dl (65-105)
[2023-11-20] VITALS (16 sets, daily range): BP systolic 101–115; BP diastolic 48–81; PULSE 76–94; RESP 16–22; TEMP 35.3–36.9; O2SAT 92–99
[2023-11-20 02:14] LABS: Glucose Point of Care 63 mg/dl (65-105)
[2023-11-20] MEDS: DEXTROSE 50% 25 GM/50 ML SYRINGE IV PUSH (02:19)
[2023-11-20 02:53] LABS: Glucose Point of Care 118 mg/dl (65-105)
[2023-11-20] MEDS: CENTRAL LINE FLUSH 10 ML IV PUSH ×3 (05:28→21:03)
[2023-11-20] MEDS: METOCLOPRAMIDE HCL INJ 10 MG/2 ML VIAL IV PUSH ×3 (05:28→18:52)
[2023-11-20 05:43] LABS: Basophils Percent Auto 0.1 % (0.2-1.2); Hematocrit 26.9 % (42.0-52.0); Hemoglobin 8.8 g/dL (14.0-18.0); Immature Granulocyte Absolute 0.05 K/mm3 (0.00-0.031); Immature Granulocyte Percent A 0.7 % (0-0.5); Lymphocytes Absolute Auto 0.86 K/mm3 (0.9-3.2); Mean Corpuscular HGB Conc 32.7 g/dl (32-36); Mean Corpuscular Hemoglobin 31.4 pg (26-34); Mean Corpuscular Volume 96.1 fl (80-100); Monocytes Absolute Auto 0.3 K/mm3 (0.1-0.6); Monocytes Percent Auto 4.5 % (2.6-8.5); Neutrophils Absolute Auto 5.9 K/mm3 (1.3-6.7); Neutrophils Percent Auto 82.7 % (45.5-73.1); Platelet Count Result 200 k/mm3 (150-375); Red Cell Distribution Width 17.7 % (11.5-14.5); White Blood Count 7.1 K/mm3 (4.5-10.0)
[2023-11-20 05:53] LABS: Prothrombin Time 33.2 Seconds (11.1-14.7)
[2023-11-20 05:59] LABS: Alanine Aminotransferase 22 U/L (6-50); Albumin Level 2.1 g/dL (3.5-5.1); Alkaline Phosphatase 69 U/L (38-126); Anion Gap 6 mmol/L (8-16); Aspartate Amino Transferase 40 U/L (17-59); Bilirubin,Total 0.6 mg/dL (0.2-1.3); Blood Urea Nitrogen 31 mg/dL (9-20); Calcium 8.1 mg/dL (8.4-10.2); Carbon Dioxide 29 mmol/L (22-30); Chloride 104 mmol/L (98-107); Estimated CRCL calculation 26 ml/min; Estimated Glomerular Filt Rate 24; Glucose 106 mg/dL (65-110); Potassium 2.8 mmol/L (3.4-5.0); Sodium 139 mmol/L (137-145)
[2023-11-20] MEDS: KCL 40 MEQ/WATER 100 ML 100 ML 25 ML IVPB ×2 (06:45→20:58)
[2023-11-20 08:33] LABS: Glucose Point of Care 101 mg/dl (65-105)
[2023-11-20] MEDS: DRONEDARONE HCL 400 MG TABLET PO ×2 (10:00→18:51)
[2023-11-20] MEDS: PRAMIPEXOLE 0.5 MG TABLET PO ×2 (10:00→18:51)
[2023-11-20] MEDS: MIDODRINE HCL 10 MG TABLET 20 MG PO ×3 (10:00→18:57)
[2023-11-20] MEDS: BISACODYL 10 MG SUPPOSITORY RECTAL (10:00)
[2023-11-20] MEDS: APIXABAN 2.5 MG TABLET PO ×2 (10:00→18:50)
[2023-11-20] MEDS: CYANOCOBALAMIN 1,000 MCG TABLET 1000 MCG PO (10:00)
[2023-11-20] MEDS: calcitrioL 0.25 MCG CAPSULE PO (10:00)
[2023-11-20] MEDS: LIDOCAINE 5% PATCH 1 PATCH TRANSDERM (10:00)
[2023-11-20] MEDS: ASPIRIN 81 MG CHEWABLE TABLET PO (10:00)
[2023-11-20] MEDS: PANTOPRAZOLE SODIUM IV 40 MG VIAL IV PUSH (10:01)
--- NOTE | 2023-11-20 11:00 | PM.PNNEP ---
Progress Note: A&P Assessment and Plan (1) End stage renal disease: Code(s): N18.6 - End stage renal disease Status: Chronic Assessment and Plan: HD tomorrow continue M/W/F outpatient dialysis schedule follow electrolytes, volume status, and clearance (2) Altered mental status: Code(s): R41.82 - Altered mental status, unspecified Status: Acute Assessment and Plan: has baseline confusion furthermore, he waxes and wanes with his mentation at baseline repeat CT scan of head noted continue supportive therapy (3) COVID: Code(s): U07.1 - COVID-19 Status: Acute Assessment and Plan: seems to be doing better but still requiring oxygen continue supplemental oxygen and wean as tolerated on decadron and remdesevir per protocol follow CXR and respiratory status (4) Adynamic ileus: Code(s): K56.0 - Paralytic ileus Status: Chronic Assessment and Plan: chronic issue as noted by evaluation to date Surgery and GI recommendations noted NPO at this time unable to place NG tube (5) Acute hypokalemia: Code(s): E87.6 - Hypokalemia Status: Acute Assessment and Plan: also fluctuates related to poor oral nutrition/oral intake replace as needed and on chronic supplementation adjust dialysis bath to compensate as well liberalize diet (but NPO) (6) Atrial fibrillation: Code(s): I48.91 - Unspecified atrial fibrillation Status: Chronic Assessment and Plan: rate control strategy already on anticoagulation (7) Anemia: Code(s): D64.9 - Anemia, unspecified Status: Chronic Assessment and Plan: due to ESRD and acute illness Epogen with HD PRBC transfusion per protocol follow H/H (8) HTN (hypertension): Code(s): I10 - Essential (primary) hypertension Status: Chronic Assessment and Plan: despite history, BP runs soft/on the low side on midodrine already follow trend of hemodynamics (9) DM2 (diabetes mellitus, type 2): Code(s): E11.9 - Type 2 diabetes mellitus without complications Status: Chronic Assessment and Plan: follow accu-cheks glycemic control per hospitalists Will oontinue to follow. Subjective Date/time seen: 11/20/23 11:00 Interval history: Follow-up for end stage renal disease on hemodialysis. Radiology unable to place NG tube earlier toay -- unable to pass tube beyond posterior nasal cavity; otherwise, no apparent distress noted; no other acute issues/events overnight or earlier this morning. Exam Narrative: General: somewhat chronically ill appearing male in NAD Heart: normal S1 and S2; no rub Lungs: coarse breath sounds Abdomen: soft, nontender, positive bowel sounds Extremities: no cyanosis or clubbing; s/p right AKA Skin: warm and intact Objective Data Vital Signs Vital Signs: Vital Signs Temp Pulse Resp BP Pulse Ox 11/20/23 10:45 98.0 F 80 16 104/48 L 92 11/20/23 09:20 80 11/20/23 08:00 95.5 F L 80 22 H 101/57 L 97 11/20/23 06:00 88 11/20/23 06:01 97.7 F 84 22 H 103/50 L 99 11/20/23 04:00 78 11/20/23 02:00 76 11/20/23 00:00 78 11/20/23 00:27 97.7 F 79 20 101/64 99 11/19/23 22:00 98 11/19/23 20:00 83 11/19/23 20:25 97.5 F L 83 16 127/61 91 11/19/23 18:00 84 11/19/23 18:23 81 Intake/Output Intake/Output: Intake & Output 11/17/23 11/18/23 11/19/23 11/20/23 23:59 23:59 23:59 23:59 Intake Total 450 650 360 Output Total 250 500 395 Balance 200 150 -35 Meds/Results Medications: Active Medications Generic Name Dose Route Start Last Admin Trade Name Beth PRN Reason Stop Dose Admin Acetaminophen 650 mg 11/17/23 03:14 11/19/23 23:54 Acetaminophen 325 Mg Tablet PO 650 mg Q6H PRN Administration Pain 1-3 Al Hydrox/Mg Hydrox/Simethicone 30 ml
--- NOTE | 2023-11-20 11:00 | P.PNNP_ITS ---
Progress Note: A&P Assessment and Plan (1) End stage renal disease: Code(s): N18.6 - End stage renal disease Status: Chronic Assessment and Plan: * HD tomorrow * continue M/W/F outpatient dialysis schedule * follow electrolytes, volume status, and clearance (2) Altered mental status: Code(s): R41.82 - Altered mental status, unspecified Status: Acute Assessment and Plan: * has baseline confusion * furthermore, he waxes and wanes with his mentation at baseline * repeat CT scan of head noted * continue supportive therapy (3) COVID: Code(s): U07.1 - COVID-19 Status: Acute Assessment and Plan: * seems to be doing better but still requiring oxygen * continue supplemental oxygen and wean as tolerated * on decadron and remdesevir per protocol * follow CXR and respiratory status (4) Adynamic ileus: Code(s): K56.0 - Paralytic ileus Status: Chronic Assessment and Plan: * chronic issue as noted by evaluation to date * Surgery and GI recommendations noted * NPO at this time -*- -unable to place NG tube (5) Acute hypokalemia: Code(s): E87.6 - Hypokalemia Status: Acute Assessment and Plan: * also fluctuates * related to poor oral nutrition/oral intake * replace as needed and on chronic supplementation * adjust dialysis bath to compensate as well * liberalize diet (but NPO) (6) Atrial fibrillation: Code(s): I48.91 - Unspecified atrial fibrillation Status: Chronic Assessment and Plan: * rate control strategy * already on anticoagulation (7) Anemia: Code(s): D64.9 - Anemia, unspecified Status: Chronic Assessment and Plan: * due to ESRD and acute illness * Epogen with HD * PRBC transfusion per protocol * follow H/H (8) HTN (hypertension): Code(s): I10 - Essential (primary) hypertension Status: Chronic Assessment and Plan: * despite history, BP runs soft/on the low side * on midodrine already * follow trend of hemodynamics (9) DM2 (diabetes mellitus, type 2): Code(s): E11.9 - Type 2 diabetes mellitus without complications Status: Chronic Assessment and Plan: * follow accu-cheks * glycemic control per hospitalists Will oontinue to follow. Subjective Date/time seen: 11/20/23 11:00 Interval history: Follow-up for end stage renal disease on hemodialysis. Radiology unable to place NG tube earlier toay -- unable to pass tube beyond posterior nasal cavity; otherwise, no apparent distress noted; no other acute issues/events overnight or earlier this morning. Exam Narrative: General: somewhat chronically ill appearing male in NAD Heart: normal S1 and S2; no rub Lungs: coarse breath sounds Abdomen: soft, nontender, positive bowel sounds Extremities: no cyanosis or clubbing; s/p right AKA Skin: warm and intact Objective Data Vital Signs Vital Signs: Vital Signs Temp Pulse Resp BP Pulse Ox 11/20/23 10:45 98.0 F 80 16 104/48 L 92 11/20/23 09:20 80 11/20/23 08:00 95.5 F L 80 22 H 101/57 L 97 11/20/23 06:00 88 11/20/23 06:01 97.7 F 84 22 H 103/50 L 99 11/20/23 04:00 78 11/20/23 02:00 76 11/20/23 00:00 78 11/20/23 00:
[2023-11-20 12:04] LABS: Glucose Point of Care 106 mg/dl (65-105)
--- NOTE | 2023-11-20 12:36 | PM.IMPN ---
Progress Note: A&P Assessment and Plan (1) COVID: Code(s): U07.1 - COVID-19 Status: Acute (2) Discitis of lumbar region: Code(s): M46.46 - Discitis, unspecified, lumbar region Status: Acute (3) Acute hypokalemia: Code(s): E87.6 - Hypokalemia Status: Acute (4) Adynamic ileus: Code(s): K56.0 - Paralytic ileus Status: Chronic (5) Acute hypoxemic respiratory failure: Code(s): J96.01 - Acute respiratory failure with hypoxia Status: Acute (6) Weakness: Code(s): R53.1 - Weakness Status: Acute (7) Hemodialysis patient: Code(s): Z99.2 - Dependence on renal dialysis Status: Acute (8) Anticoagulant long-term use: Code(s): Z79.01 - long-term (current) use of anticoagulants Status: Chronic Plan 73M w/ PMH HTN, IDDM, a fib on eliquis, CAD s/p CABG, COPD, HLD, hyperthyroidism, ESRD on HD MWF via LUE AV fistula, right knee septic arthritis s/p AKA, L2-L4 osteomyelitis/diskitis, moderate-severe , gout, anemia, remote history of seizures presented with acute confusion during HD session, admitted on 11/16/23 # acute encephalopathy - now A&Ox3. the patient has recurrent confusion when going to dialysis. prior workup unrevealing. CT brain this admission w/o acute abnormalities. continue to monitor. possible Covid encephalopathy playing a role this time # COVID 19 with acute hypoxic respiratory failure - currently on 2L NC. wean as tolerated. - cont decadron and remdesevir -CRP down to 8 from 16. Will check again in the morning # ileus - discovered on CT. This is chronic. Abdomen is distended but non tender - GI consulted. reglan scheduled. See Dulcolax x1. No significant BM just yet. NG tube placement unsuccessful x2 and again failed with radiologist. He has a posterior nasal cavity blockage bilaterally. -this issue is chronic and unchanged. Continue to appreciate GI recommendations. He is on clear liquid diet and colonic decompression is a consideration. -in regards to his hypokalemia and this has been chronic. The patient has a high potassium bath. It will be difficult but goal potassium greater than 4. He received 40 IV this morning. Check again at 3:00 p.m. tomorrow start 40 p.o. q.a.m. he is chronically deconditioned has poor intake # diskitis/osteomyeltitis at L2-L4 - treated initially in august 2023 at [facility], was on cefepime at discharge but there are reports by nursing he may have not received those abx. on admission the diskitis appears slightly worsened on CT scan abd/pelv. transfer from ER rejected by [facility]. The patient does not believe he has it due to his pain being improved and now does not want to be transferred. It is likely a chronic issue as he is not currently septic, however the best we could offer is ongoing abx and close follow up with ID as outpatient - cont cefepime. Appears nonseptic. # elevated troponins -flat, the pt denies chest pain # hypokalemia - replace per nephrology # ESRD on HD MWF - nephrology consulted. he is on schedule. # chronic anemia - HB on 11/17 05/20. transfused 1 unit - goal HB > 8.0 as pt has CAD FEN: saline lock IV, clear liquid GI prophylaxis: protonix 40mg IV qday DVT prophylaxis: on apixaban 2.5mg po bid Lines: pIV, d/c lopes on 11/19 Code Status: DNR Dispo: guarded More than 35 minutes spent on chart review, patient interaction and assessment and plan. Subjective Date/time seen: 11/20/23 12:36 Interval history: No acute overnight events. The patient has no complaints he can elicit. He denies nausea or vomiting. Denies chest pain shortness of breath. He had a minimal amount of loose stool 1 suppository was placed this morning. Denies abdominal pain Review of Systems Review of Systems: All systems reviewed & are unremarkable except as noted in HPI and below (Subjective) Exam Const: General: comfortable and no acute distress Eyes: Pupils: Equal, round and reacti
[2023-11-20] MEDS: SEVELAMER CARBONATE 800 MG TABLET PO ×2 (14:28→18:57)
[2023-11-20 16:32] LABS: Glucose Point of Care 101 mg/dl (65-105)
[2023-11-20] MEDS: CEFEPIME 1 GM/NS 50 ML 1 GM/50 ML BAG IVPB (18:53)
[2023-11-20 19:26] LABS: Anion Gap 8 mmol/L (8-16); Blood Urea Nitrogen 37 mg/dL (9-20); Calcium 8.2 mg/dL (8.4-10.2); Carbon Dioxide 26 mmol/L (22-30); Chloride 103 mmol/L (98-107); Estimated CRCL calculation 25 ml/min; Estimated Glomerular Filt Rate 22; Glucose 201 mg/dL (65-110); Potassium 3.1 mmol/L (3.4-5.0); Sodium 137 mmol/L (137-145)
[2023-11-20 21:08] LABS: Glucose Point of Care 210 mg/dl (65-105)
[2023-11-21] VITALS (41 sets, daily range): BP systolic 89–140; BP diastolic 46–87; PULSE 48–93; RESP 16–25; TEMP 35.5–37.4; O2SAT 89–100
[2023-11-21] MEDS: REMDESIVIR 100 MG/NS 250 ML 100 MG/250 ML BAG 250 MG IVPB ×2 (00:14→21:06)
[2023-11-21] MEDS: METOCLOPRAMIDE HCL INJ 10 MG/2 ML VIAL IV PUSH ×4 (00:15→18:53)
[2023-11-21] MEDS: CENTRAL LINE FLUSH 10 ML IV PUSH ×3 (06:11→21:07)
[2023-11-21 06:36] LABS: Basophils Percent Auto 0.1 % (0.2-1.2); Hemoglobin 8.6 g/dL (14.0-18.0); Immature Granulocyte Absolute 0.07 K/mm3 (0.00-0.031); Immature Granulocyte Percent A 0.7 % (0-0.5); Lymphocytes Absolute Auto 0.63 K/mm3 (0.9-3.2); Lymphocytes Percent Auto 6.3 % (18.3-44.2); Mean Corpuscular HGB Conc 33.1 g/dl (32-36); Mean Corpuscular Hemoglobin 31.6 pg (26-34); Mean Corpuscular Volume 95.6 fl (80-100); Mean Platelet Volume 9.3 fl (7.4-10.4); Monocytes Absolute Auto 0.2 K/mm3 (0.1-0.6); Monocytes Percent Auto 2.4 % (2.6-8.5); Neutrophils Percent Auto 90.5 % (45.5-73.1); Nucleated Red Blood Cells Perc 0.2 % (0.0-0.2); Platelet Count Result 178 k/mm3 (150-375); Red Blood Count 2.72 M/mm3 (4.6-6.20)
[2023-11-21 07:05] LABS: Alanine Aminotransferase 19 U/L (6-50); Albumin Level 2.2 g/dL (3.5-5.1); Alkaline Phosphatase 70 U/L (38-126); Anion Gap 8 mmol/L (8-16); Aspartate Amino Transferase 37 U/L (17-59); Bilirubin,Total 0.6 mg/dL (0.2-1.3); Blood Urea Nitrogen 42 mg/dL (9-20); CRP 13.3 mg/dL (<1.0); Calcium 8.1 mg/dL (8.4-10.2); Carbon Dioxide 27 mmol/L (22-30); Chloride 103 mmol/L (98-107); Estimated CRCL calculation 23 ml/min; Estimated Glomerular Filt Rate 20; Glucose 102 mg/dL (65-110); Phosphorus 2.8 mg/dL (2.5-4.5); Potassium 3.3 mmol/L (3.4-5.0); Sodium 138 mmol/L (137-145)
[2023-11-21 08:21] LABS: Acanthocytes 2+ (NORMAL); Anisocytosis 1+ (NORMAL); Platelet Estimate Adequate (Adequate); Schistocytes Rare (NORMAL)
[2023-11-21 09:09] LABS: Glucose Point of Care 115 mg/dl (65-105)
--- NOTE | 2023-11-21 09:38 | PM.IMPN ---
Progress Note: A&P Assessment and Plan (1) COVID: Code(s): U07.1 - COVID-19 Status: Acute (2) Discitis of lumbar region: Code(s): M46.46 - Discitis, unspecified, lumbar region Status: Acute (3) Acute hypokalemia: Code(s): E87.6 - Hypokalemia Status: Acute (4) Adynamic ileus: Code(s): K56.0 - Paralytic ileus Status: Chronic (5) Acute hypoxemic respiratory failure: Code(s): J96.01 - Acute respiratory failure with hypoxia Status: Acute (6) Weakness: Code(s): R53.1 - Weakness Status: Acute (7) Hemodialysis patient: Code(s): Z99.2 - Dependence on renal dialysis Status: Acute (8) Anticoagulant long-term use: Code(s): Z79.01 - snf (current) use of anticoagulants Status: Chronic Plan 73M w/ PMH HTN, IDDM, a fib on eliquis, CAD s/p CABG, COPD, HLD, hyperthyroidism, ESRD on HD MWF via LUE AV fistula, right knee septic arthritis s/p AKA, L2-L4 osteomyelitis/diskitis, moderate-severe , gout, anemia, remote history of seizures presented with acute confusion during HD session, admitted on 11/16/23 # acute encephalopathy - now A&Ox3. the patient has recurrent confusion when going to dialysis. prior workup unrevealing. CT brain this admission w/o acute abnormalities. continue to monitor. possible Covid encephalopathy playing a role this time # COVID 19 with acute hypoxic respiratory failure - persistent. He has received 5 days of remdesivir and Decadron. Continue Decadron and will also extend remdesivir course. He remains on 6 L high-flow nasal cannula. If O2 requirement worsens tocilizumab or baricitinib would be appropriate. - continue to trend CRP - ileus may be playing a role in restricting his lung capacity. Treat below - 11/21 he has been developing upper airway congestion. He is a mouth breather and appears very deconditioned. Start guaifenesin Pulmozyme and t.i.d. chest physiotherapy. Pulmonology consult would be appropriate if he does not improve today. -repeat chest x-ray on November 21 demonstrating developing right hazy opacities. Considering his weakness and upper airway congestion will start to cover for Hcap. Start vancomycin. He has been on cefepime for diskitis will switch that to meropenem to cover for anaerobic coverage as well. Trend procalcitonin and CRP. He does have ESRD so these will be elevated at baseline. # ileus - discovered on CT.? This is chronic.? Abdomen is distended but non tender - GI consulted. reglan scheduled.? See Dulcolax x1.? No significant BM just yet. NG tube placement unsuccessful x2 and again failed with radiologist.? 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 Continue to appreciate GI recommendations.? He is on clear liquid diet and colonic decompression is a consideration. -in regards to his hypokalemia. this has been chronic.? The patient has a high potassium bath.? It will be difficult but goal potassium greater than 4.? Placed on 40 mEq KCL daily by Nephrology. He has very poor oral intake and in spite of chronic dialysis and high potassium bath has been hypokalemic for a long time. # diskitis/osteomyeltitis at L2-L4 - treated initially in august 2023 at [facility], was on cefepime at discharge but there are reports by nursing he may have not received those abx. on admission the diskitis appears slightly worsened on CT scan abd/pelv. transfer from ER rejected by [facility]. The patient does not believe he has it due to his pain being improved and now does not want to be transferred. It is likely a chronic issue as he is not currently septic, however the best we could offer is ongoing abx and close follow up with ID as outpatient -appears nonseptic. Cefepime switched to meropenem for Hcap and aspiration. Consider switch back to cefepime on discharge at renal dosing and have ID follow up closely. # elevated troponins -flat, the pt denies chest pain # hypoka
--- NOTE | 2023-11-21 09:53 | PC.NURSE ---
0815- to dialysis dept via bed accompanied by staff for treatment- O2 on 4 l/nc
--- NOTE | 2023-11-21 10:25 | P.PNNP_ITS ---
Progress Note: A&P Assessment and Plan (1) End stage renal disease: Code(s): N18.6 - End stage renal disease Status: Chronic Assessment and Plan: * HD today * continue M/W/F outpatient dialysis schedule * follow electrolytes, volume status, and clearance (2) Altered mental status: Code(s): R41.82 - Altered mental status, unspecified Status: Acute Assessment and Plan: * has baseline confusion * furthermore, he waxes and wanes with his mentation at baseline * repeat CT scan of head noted * continue supportive therapy (3) COVID: Code(s): U07.1 - COVID-19 Status: Acute Assessment and Plan: * seems to be doing better but still requiring oxygen * continue supplemental oxygen and wean as tolerated * on decadron and remdesevir per protocol * follow CXR and respiratory status (4) Adynamic ileus: Code(s): K56.0 - Paralytic ileus Status: Chronic Assessment and Plan: * chronic issue as noted by evaluation to date * Surgery and GI recommendations noted * NPO at this time -*- -unable to place NG tube (5) Acute hypokalemia: Code(s): E87.6 - Hypokalemia Status: Acute Assessment and Plan: * also fluctuates * related to poor oral nutrition/oral intake * replace as needed and on chronic supplementation * adjust dialysis bath to compensate as well * liberalize diet (but NPO) (6) Atrial fibrillation: Code(s): I48.91 - Unspecified atrial fibrillation Status: Chronic Assessment and Plan: * rate control strategy * already on anticoagulation (7) Anemia: Code(s): D64.9 - Anemia, unspecified Status: Chronic Assessment and Plan: * due to ESRD and acute illness * Epogen with HD * PRBC transfusion per protocol * follow H/H (8) HTN (hypertension): Code(s): I10 - Essential (primary) hypertension Status: Chronic Assessment and Plan: * despite history, BP runs soft/on the low side * on midodrine already * follow trend of hemodynamics (9) DM2 (diabetes mellitus, type 2): Code(s): E11.9 - Type 2 diabetes mellitus without complications Status: Chronic Assessment and Plan: * follow accu-cheks * glycemic control per hospitalists Will oontinue to follow. Subjective Date/time seen: 11/21/23 10:25 Interval history: Follow-up for end stage renal disease on hemodialysis. Tolerating dialysis treatment at the time of my visit (seen on HD at 10:15AM); issues with worsening dyspnea/shortness of breath overnight but seems better this AM; thinks nebulizer treatments help clear congestion but it is still present. Exam Narrative: General: somewhat chronically ill appearing male in NAD Heart: normal S1 and S2; no rub Lungs: coarse breath sounds Abdomen: soft, nontender, positive bowel sounds Extremities: no cyanosis or clubbing; s/p right AKA Skin: warm and intact Objective Data Vital Signs Vital Signs: Vital Signs Temp Pulse Resp BP Pulse Ox O2 Del Method O2 Flow Rate 11/21/23 10:15 86 103/63 11/21/23 10:00 86 102/64 11/21/23 09:45 86 99/59 L 11/21/23 09:20 83 107/63 11/21/23 09:00 80 112/67 11/21/23 09:40 88 99/57 L 11/21/23 08:50 3
--- NOTE | 2023-11-21 10:25 | PM.PNNEP ---
Progress Note: A&P Assessment and Plan (1) End stage renal disease: Code(s): N18.6 - End stage renal disease Status: Chronic Assessment and Plan: HD today continue M/W/F outpatient dialysis schedule follow electrolytes, volume status, and clearance (2) Altered mental status: Code(s): R41.82 - Altered mental status, unspecified Status: Acute Assessment and Plan: has baseline confusion furthermore, he waxes and wanes with his mentation at baseline repeat CT scan of head noted continue supportive therapy (3) COVID: Code(s): U07.1 - COVID-19 Status: Acute Assessment and Plan: seems to be doing better but still requiring oxygen continue supplemental oxygen and wean as tolerated on decadron and remdesevir per protocol follow CXR and respiratory status (4) Adynamic ileus: Code(s): K56.0 - Paralytic ileus Status: Chronic Assessment and Plan: chronic issue as noted by evaluation to date Surgery and GI recommendations noted NPO at this time unable to place NG tube (5) Acute hypokalemia: Code(s): E87.6 - Hypokalemia Status: Acute Assessment and Plan: also fluctuates related to poor oral nutrition/oral intake replace as needed and on chronic supplementation adjust dialysis bath to compensate as well liberalize diet (but NPO) (6) Atrial fibrillation: Code(s): I48.91 - Unspecified atrial fibrillation Status: Chronic Assessment and Plan: rate control strategy already on anticoagulation (7) Anemia: Code(s): D64.9 - Anemia, unspecified Status: Chronic Assessment and Plan: due to ESRD and acute illness Epogen with HD PRBC transfusion per protocol follow H/H (8) HTN (hypertension): Code(s): I10 - Essential (primary) hypertension Status: Chronic Assessment and Plan: despite history, BP runs soft/on the low side on midodrine already follow trend of hemodynamics (9) DM2 (diabetes mellitus, type 2): Code(s): E11.9 - Type 2 diabetes mellitus without complications Status: Chronic Assessment and Plan: follow accu-cheks glycemic control per hospitalists Will oontinue to follow. Subjective Date/time seen: 11/21/23 10:25 Interval history: Follow-up for end stage renal disease on hemodialysis. Tolerating dialysis treatment at the time of my visit (seen on HD at 10:15AM); issues with worsening dyspnea/shortness of breath overnight but seems better this AM; thinks nebulizer treatments help clear congestion but it is still present. Exam Narrative: General: somewhat chronically ill appearing male in NAD Heart: normal S1 and S2; no rub Lungs: coarse breath sounds Abdomen: soft, nontender, positive bowel sounds Extremities: no cyanosis or clubbing; s/p right AKA Skin: warm and intact Objective Data Vital Signs Vital Signs: Vital Signs Temp Pulse Resp BP Pulse Ox O2 Del Method O2 Flow Rate 11/21/23 10:15 86 103/63 11/21/23 10:00 86 102/64 11/21/23 09:45 86 99/59 L 11/21/23 09:20 83 107/63 11/21/23 09:00 80 112/67 11/21/23 09:40 88 99/57 L 11/21/23 08:50 3 11/21/23 08:40 98 F 85 16 115/68 11/21/23 08:50 83 114/64 11/21/23 08:00 97.5 F L 81 22 H 109/62 100 11/21/23 06:00 92 11/21/23 04:00 82 11/21/23 03:13 97.3 F L 83 20 107/56 L 98 11/21/23 02:11 23 H 95 High Flow Nasal Cannula 3 11/21/23 01:03 98.1 F 77 19 111/57 L 100 11/21/23 00:00 81 11/20/23 22:00 83 11/20/23 20:00 94 11/20/23 20:00 98.4 F 89 18 108/65 98 11/20/23 16:00 92 Nasal Cannula 2 11/20/23 12:00 97 Nasal Cannula 2 11/20/23 20:22 22 H 94 High Flow Nasal Cannula 10 11/20/23 18:00 86 11/20/23 16:00 77 11/20/23 14:00 77 0
[2023-11-21] MEDS: EPOETIN ALFA-EPBX 10,000 UNITS/ML VIAL 10000 UNITS IV PUSH (11:36)
[2023-11-21] MEDS: DRONEDARONE HCL 400 MG TABLET PO ×2 (13:23→18:55)
[2023-11-21] MEDS: LIDOCAINE 5% PATCH 1 PATCH TRANSDERM (13:24)
[2023-11-21] MEDS: MIDODRINE HCL 10 MG TABLET 20 MG PO ×2 (13:31→18:50)
[2023-11-21] MEDS: PANTOPRAZOLE SODIUM IV 40 MG VIAL IV PUSH (13:36)
[2023-11-21] MEDS: MEROPENEM 500 MG in SODIUM CHLORIDE 0.9% IV 100 ML 200 ML IVPB (13:39)
[2023-11-21] MEDS: calcitrioL 0.25 MCG CAPSULE PO (14:18)
[2023-11-21] MEDS: PRAMIPEXOLE 0.5 MG TABLET PO ×2 (14:18→18:50)
[2023-11-21] MEDS: VANCOMYCIN 1,750 MG/NS 500 ML 1,750 MG/500 ML BAG 250 MG IVPB (14:19)
[2023-11-21 14:24] LABS: MRSA (PCR) NOT DETECTED (NOT DETECTE)
[2023-11-21 15:05] LABS: Glucose Point of Care 98 mg/dl (65-105)
--- NOTE | 2023-11-21 15:28 | PCSTNOTE ---
Evaluation could not be completed this afternoon as patient had left dialysis earlier and is heading to colonoscopy procedure at this time. Will attempt in the morning.
--- NOTE | 2023-11-21 15:47 | WPDANESEPPF ---
Anes - Initial Pre Proc Eval Procedure: Operation Date: 11/21/23 15:00 Proposed Procedures p Colonoscopy - Nikolas Geller MD Date/Time: 11/21/23 15:47 Surgeon: Jamaal Ramirez MD Pre Op Diagnosis: COVID, Ileus, Hypoxic Respiratory Failure Patient Data Age: 73 Gender: M Height: 1.85 m Weight: 82.6 kg Last Vital Signs Temp 36.0 C L 11/21/23 13:25 Pulse 48 L 11/21/23 13:25 Resp 24 H 11/21/23 13:25 BP 107/67 11/21/23 13:25 Pulse Ox 90 11/21/23 13:25 O2 Del Method High Flow Nasal Cannula 11/21/23 02:11 O2 Flow Rate 3 11/21/23 08:50 FiO2 32 11/21/23 02:11 Allergies Allergy/AdvReac Type Severity Reaction Status Date / Time morphine Allergy Mild TREMORS Verified 10/19/23 17:18 Home Medications Medication Instructions Recorded Confirmed Type atorvastatin 40 mg tablet 40 mg PO HS 12/11/19 11/17/23 History citalopram 20 mg tablet 20 mg PO DAILY 03/03/23 11/17/23 History sevelamer carbonate 800 mg tablet 800 mg PO TID 03/03/23 11/17/23 History acetaminophen 500 mg tablet 650 mg PO Q6H PRN Pain 1-6 09/08/23 11/17/23 History apixaban 5 mg tablet (Eliquis) 5 mg PO BID 09/08/23 11/17/23 History aspirin 81 mg tablet 81 mg PO DAILY 09/08/23 11/17/23 History pramipexole 0.5 mg tablet (Mirapex) 0.5 mg PO BID 09/08/23 11/17/23 History midodrine 10 mg tablet 20 mg PO TID 09/09/23 11/17/23 History Melatin 3 mg PO HS 10/19/23 11/17/23 History calcitriol 0.25 mcg capsule 0.25 mcg PO DAILY 10/19/23 11/17/23 History (Rocaltrol) cyanocobalamin (vitamin B-12) 100 1,000 mcg PO DAILY 10/19/23 11/17/23 History mcg tablet cyclobenzaprine 5 mg PO Q8H PRN Spasms 10/19/23 11/17/23 History dronedarone 400 mg tablet 400 mg PO BID 10/19/23 11/17/23 History ergocalciferol (vitamin D2) 50,000 50,000 unit PO WEEKLY 10/19/23 11/17/23 History unit tablet insulin lispro 100 unit/mL 1 sliding scale dose subcut 10/19/23 11/17/23 History subcutaneous pen USEASDIRECTD lidocaine 5 % topical patch 1 patch transdermal DAILY 10/19/23 11/17/23 History (Lidoderm) loperamide 2 mg capsule 2 mg PO QID 10/19/23 11/17/23 History polyethylene glycol 3350 17 17 g PO DAILY 10/19/23 11/17/23 History gram/dose oral powder (Miralax) pregabalin 50 mg capsule 50 mg PO HS 10/19/23 11/17/23 History spironolactone 25 mg tablet 25 mg PO DAILY 10/19/23 11/17/23 History Laboratory Tests 11/20/23 11/20/23 11/20/23 16:26 18:56 21:01 WBC RBC Hgb Hct MCV MCH MCHC RDW Plt Count MPV Immature Gran % (Auto) Neut % (Auto) Lymph % (Auto) [place] % (Auto) Eos % (Auto) Baso % (Auto) Lymph # (Auto) [place] # (Auto) Eos # (Auto) Baso # (Auto) Abs Immat Gran (auto) Absolute Neuts (auto) Absolute Nucleated RBC Nucleated RBC % Platelet Estimate Anisocytosis Acanthocytes (Spur) Schistocytes Sodium 137 mmol/L (137-145) Potassium 3.1 L mmol/L (3.4-5.0) Chloride 103 mmol/L (98-107) Carbon Dioxide 26 mmol/L (22-30) Anion Gap 8 mmol/L (8-16) BUN 37 H mg/dL (9-20) Creatinine 2.80 H mg/dL (0.7-1.3) Estim Creat Clear Calc 25 ml/min Estimated GFR 22 L (59 - ) Glucose 201 H mg/dL (65-110) POC Capillary Glucose 101 mg/dl 210 H mg/dl (65-105) (65-105) Calcium 8.2 L mg/dL (8.4-10.2) Phosphorus Magnesium Total Bilirubin AST ALT Alkaline Phosphatase C-Reactive Protein Total Protein Albumin Nasal MRSA (PCR) 11/21/23 11/21/23 11/21/23 06:19 06:20 07:5
[2023-11-21] MEDS: LACTATED RINGERS 1,000 ML 150 ML IV CONT (15:56)
[2023-11-21 16:19] LABS: Glucose Point of Care 84 mg/dl (65-105)
[2023-11-21 16:19] LABS: Glucose Point of Care 93 mg/dl (65-105)
[2023-11-21 17:14] LABS: Glucose Point of Care 90 mg/dl (65-105)
[2023-11-21] MEDS: CYANOCOBALAMIN 1,000 MCG TABLET 1000 MCG PO (18:10)
[2023-11-21] MEDS: ERGOCALCIFEROL 50,000 UNITS CAPSULE 50000 UNITS PO (18:49)
[2023-11-21] MEDS: APIXABAN 2.5 MG TABLET PO (18:49)
[2023-11-21] MEDS: guaiFENesin 12 HR 600 MG TABCR 1200 MG PO (21:06)
[2023-11-21] MEDS: ATORVASTATIN 40 MG TABLET PO (21:06)
[2023-11-21] MEDS: MELATONIN 3 MG TABLET PO (21:06)
[2023-11-21] MEDS: PREGABALIN (*CRX) 50 MG CAPSULE PO (21:06)
[2023-11-21 21:16] LABS: Glucose Point of Care 76 mg/dl (65-105)
[2023-11-21] MEDS: DORNASE ALFA INH SOLN 1 MG/ML 2.5 ML AMP 2.5 MG INHALATION (21:29)
[2023-11-22] VITALS (22 sets, daily range): BP systolic 97–122; BP diastolic 51–77; PULSE 86–113; RESP 18–24; TEMP 36.4–36.7; O2SAT 94–100
[2023-11-22] MEDS: METOCLOPRAMIDE HCL INJ 10 MG/2 ML VIAL IV PUSH ×3 (00:03→12:47)
[2023-11-22] MEDS: DEXTROSE 50% 25 GM/50 ML SYRINGE IV PUSH ×2 (00:08→19:52)
[2023-11-22 00:38] LABS: Glucose Point of Care 62 mg/dl (65-105)
[2023-11-22 00:38] LABS: Glucose Point of Care 107 mg/dl (65-105)
[2023-11-22] MEDS: CENTRAL LINE FLUSH 10 ML IV PUSH ×3 (05:23→22:45)
[2023-11-22 05:37] LABS: Basophils Percent Auto 0.1 % (0.2-1.2); Hematocrit 24.5 % (42.0-52.0); Hemoglobin 8.3 g/dL (14.0-18.0); Immature Granulocyte Absolute 0.07 K/mm3 (0.00-0.031); Immature Granulocyte Percent A 0.7 % (0-0.5); Lymphocytes Absolute Auto 0.61 K/mm3 (0.9-3.2); Lymphocytes Percent Auto 6.3 % (18.3-44.2); Mean Corpuscular HGB Conc 33.9 g/dl (32-36); Mean Corpuscular Hemoglobin 32.2 pg (26-34); Mean Platelet Volume 10.1 fl (7.4-10.4); Monocytes Absolute Auto 0.2 K/mm3 (0.1-0.6); Monocytes Percent Auto 2.2 % (2.6-8.5); Neutrophils Absolute Auto 8.7 K/mm3 (1.3-6.7); Neutrophils Percent Auto 90.7 % (45.5-73.1); Nucleated Red Blood Cells Perc 0.3 % (0.0-0.2); Platelet Count Result 189 k/mm3 (150-375); Red Blood Count 2.58 M/mm3 (4.6-6.20); Red Cell Distribution Width 18.5 % (11.5-14.5); White Blood Count 9.6 K/mm3 (4.5-10.0)
[2023-11-22 05:50] LABS: Alanine Aminotransferase 19 U/L (6-50); Alkaline Phosphatase 62 U/L (38-126); Aspartate Amino Transferase 35 U/L (17-59); Blood Urea Nitrogen 23 mg/dL (9-20); Calcium 7.5 mg/dL (8.4-10.2); Carbon Dioxide 27 mmol/L (22-30); Chloride 105 mmol/L (98-107); Estimated CRCL calculation 37 ml/min; Estimated Glomerular Filt Rate 35
[2023-11-22 05:51] LABS: Anion Gap 4 mmol/L (8-16); Bilirubin,Total 0.7 mg/dL (0.2-1.3); Glucose 85 mg/dL (65-110); Magnesium 1.9 mg/dL (1.6-2.3); Phosphorus 1.9 mg/dL (2.5-4.5); Potassium 3.3 mmol/L (3.4-5.0); Sodium 136 mmol/L (137-145)
[2023-11-22 06:04] LABS: Procalcitonin 0.9 ng/mL
--- NOTE | 2023-11-22 08:18 | PCSTNOTE ---
Please refer to the Bedside Swallow Evaluation in the EMR. Please note, silent aspiration cannot be ruled out at bedside. The above pt was positioned (with assist) upright in the bed for the swallow evaluation. Pt was somnolent but able to follow simple commands. Prior to oral trials, vocal quality was clear. Pt was able to swallow on command; adequate laryngeal elevation was questionable/doubtful. Pt was tested with ice chips, pudding, and applesauce. After the trials of ice chips, vocal quality remained clear and no overt s/s of aspiration were noted. Adequacy of laryngeal elevation was questionable. Immediately after the pudding trials, no overt s/s of aspiration were noted but adequacy of laryngeal elevation was questionable; after the applesauce trial coughing occurred. Impression: at this time due to the questionable adequacy of laryngeal elevation and coughing, it likely pt has a degree of dysphagia. Recommendation: small amounts of ice chips in order to facilitate swallowing and deter dry mouth; but NPO otherwise. Trial of dysphagia is also warranted to begin laryngeal elevation & adduction exercises.
[2023-11-22] MEDS: ALBUTEROL SULFATE NEB 2.5 MG/3 ML INH INHALATION ×2 (09:27→20:12)
[2023-11-22] MEDS: DORNASE ALFA INH SOLN 1 MG/ML 2.5 ML AMP 2.5 MG INHALATION (09:29)
--- NOTE | 2023-11-22 10:09 | P.PNNP_ITS ---
Progress Note: A&P Assessment and Plan (1) End stage renal disease: Code(s): N18.6 - End stage renal disease Status: Chronic Assessment and Plan: * HD tomorrow * continue M/W/F outpatient dialysis schedule * follow electrolytes, volume status, and clearance (2) Altered mental status: Code(s): R41.82 - Altered mental status, unspecified Status: Acute Assessment and Plan: * has baseline confusion * furthermore, he waxes and wanes with his mentation at baseline * repeat CT scan of head noted * continue supportive therapy (3) COVID: Code(s): U07.1 - COVID-19 Status: Acute Assessment and Plan: * seems to be doing better but still requiring oxygen * continue supplemental oxygen and wean as tolerated * on decadron and remdesevir per protocol * follow CXR and respiratory status (4) Adynamic ileus: Code(s): K56.0 - Paralytic ileus Status: Chronic Assessment and Plan: * chronic issue as noted by evaluation to date * Surgery and GI recommendations noted * NPO at this time -*- -unable to place NG tube * consider PPN/TPN (5) Acute hypokalemia: Code(s): E87.6 - Hypokalemia Status: Acute Assessment and Plan: * also fluctuates * related to poor oral nutrition/oral intake * replace as needed and on chronic supplementation * adjust dialysis bath to compensate as well * liberalize diet (but NPO) (6) Atrial fibrillation: Code(s): I48.91 - Unspecified atrial fibrillation Status: Chronic Assessment and Plan: * rate control strategy * already on anticoagulation (7) Anemia: Code(s): D64.9 - Anemia, unspecified Status: Chronic Assessment and Plan: * due to ESRD and acute illness * Epogen with HD * PRBC transfusion per protocol * follow H/H (8) HTN (hypertension): Code(s): I10 - Essential (primary) hypertension Status: Chronic Assessment and Plan: * despite history, BP runs soft/on the low side * on midodrine already * follow trend of hemodynamics (9) DM2 (diabetes mellitus, type 2): Code(s): E11.9 - Type 2 diabetes mellitus without complications Status: Chronic Assessment and Plan: * follow accu-cheks * glycemic control per hospitalists Will oontinue to follow. Subjective Date/time seen: 11/22/23 10:09 Interval history: Follow-up for end stage renal disease on hemodialysis. Tolerated hemodialysis treatment yesterday as well as colonoscopy with noted re sults; on more oxygen support at the time of my visit in comparison to yesterday; no acute distress noted. Exam Narrative: General: somewhat chronically ill appearing male in NAD Heart: normal S1 and S2; no rub Lungs: coarse breath sounds Abdomen: soft, nontender, positive bowel sounds Extremities: no cyanosis or clubbing; s/p right AKA Skin: no rash Objective Data Vital Signs Vital Signs: Vital Signs Temp Pulse Resp BP Pulse Ox O2 Del Method O2 Flow Rate 11/22/23 10:07 99 High Flow Nasal Cannula 12 11/22/23 09:41 90 22 H 11/22/23 09:27 91 23 H 11/22/23 07:59 97.8 F 92 20 122/76 100 11/22/23 06:00 90 11/22/23 04:00 89 11/22/23 06:25 97.5 F L 113 H 24 H 106/62 95
--- NOTE | 2023-11-22 10:09 | PM.PNNEP ---
Progress Note: A&P Assessment and Plan (1) End stage renal disease: Code(s): N18.6 - End stage renal disease Status: Chronic Assessment and Plan: HD tomorrow continue M/W/F outpatient dialysis schedule follow electrolytes, volume status, and clearance (2) Altered mental status: Code(s): R41.82 - Altered mental status, unspecified Status: Acute Assessment and Plan: has baseline confusion furthermore, he waxes and wanes with his mentation at baseline repeat CT scan of head noted continue supportive therapy (3) COVID: Code(s): U07.1 - COVID-19 Status: Acute Assessment and Plan: seems to be doing better but still requiring oxygen continue supplemental oxygen and wean as tolerated on decadron and remdesevir per protocol follow CXR and respiratory status (4) Adynamic ileus: Code(s): K56.0 - Paralytic ileus Status: Chronic Assessment and Plan: chronic issue as noted by evaluation to date Surgery and GI recommendations noted NPO at this time unable to place NG tube consider PPN/TPN (5) Acute hypokalemia: Code(s): E87.6 - Hypokalemia Status: Acute Assessment and Plan: also fluctuates related to poor oral nutrition/oral intake replace as needed and on chronic supplementation adjust dialysis bath to compensate as well liberalize diet (but NPO) (6) Atrial fibrillation: Code(s): I48.91 - Unspecified atrial fibrillation Status: Chronic Assessment and Plan: rate control strategy already on anticoagulation (7) Anemia: Code(s): D64.9 - Anemia, unspecified Status: Chronic Assessment and Plan: due to ESRD and acute illness Epogen with HD PRBC transfusion per protocol follow H/H (8) HTN (hypertension): Code(s): I10 - Essential (primary) hypertension Status: Chronic Assessment and Plan: despite history, BP runs soft/on the low side on midodrine already follow trend of hemodynamics (9) DM2 (diabetes mellitus, type 2): Code(s): E11.9 - Type 2 diabetes mellitus without complications Status: Chronic Assessment and Plan: follow accu-cheks glycemic control per hospitalists Will oontinue to follow. Subjective Date/time seen: 11/22/23 10:09 Interval history: Follow-up for end stage renal disease on hemodialysis. Tolerated hemodialysis treatment yesterday as well as colonoscopy with noted results; on more oxygen support at the time of my visit in comparison to yesterday; no acute distress noted. Exam Narrative: General: somewhat chronically ill appearing male in NAD Heart: normal S1 and S2; no rub Lungs: coarse breath sounds Abdomen: soft, nontender, positive bowel sounds Extremities: no cyanosis or clubbing; s/p right AKA Skin: no rash Objective Data Vital Signs Vital Signs: Vital Signs Temp Pulse Resp BP Pulse Ox O2 Del Method O2 Flow Rate 11/22/23 10:07 99 High Flow Nasal Cannula 12 11/22/23 09:41 90 22 H 11/22/23 09:27 91 23 H 11/22/23 07:59 97.8 F 92 20 122/76 100 11/22/23 06:00 90 11/22/23 04:00 89 11/22/23 06:25 97.5 F L 113 H 24 H 106/62 95 11/22/23 04:00 100 Venturi Mask 15 11/22/23 02:00 93 11/22/23 00:00 87 11/22/23 00:00 96 Venturi Mask 15 11/21/23 23:44 98.4 F 86 24 H 99/58 L 92 11/21/23 22:00 92 11/21/23 20:00 91 11/21/23 22:44 89 L High Flow Nasal Cannula 12 11/21/23 20:00 90 High Flow Nasal Cannula 5 11/21/23 21:50 22 H 94 High Flow Nasal Cannula 5 11/21/23 21:49 88 20 11/21/23 21:29 90 20 11/21/23 18:00 89 11/21/23 14:00 89 11/21/23 14:00 89 11/21/23 12:00 89 11/21/23 18:55 88 11/21/23 16:19 83 25 H 111/68 100 Nasal Cannula 3 11/21/23 16:09 81 23 H 9
--- NOTE | 2023-11-22 11:30 | PCNFU ---
Nutrition Follow-Up Complete: Altered GI function as related to possible ileus as evidenced by NPO. Goal: Adequate Intake of at least 75% of meals/supplements - Not progressing. Not able to meet goal with PO intake New goal: Meet estimated nutrition needs Pt current nutrition is NPO. Additional Notes: LOGISTICS SOLUTION MANAGER found pt is unable to swallow. Discussed with RN. Multiple attempts to run NG were unsuccessful. MBSS recommended once pt is off covid isolation. D5 PRN Nutrition recommendation: May benefit from short term TPN until MBSS can be done to determine prognosis of swallowing. Pt does have central access in place. If TPN recommendations are needed: Clinmix 03/28 E @ 60 ml/h: 1522 kcal, 72 g protein, 1690 kcal. Last recorded weight is 81.2 kg. Bowel Motility:+1 BM 11/21/23 Labs Reviewed: Hgb 8.3, Hct 24.5, Alb 2.0, Na 136, K+ 3.3, GFR 35, BUN 23, Cre 1.9 Meds Noted: Eliquis, Novolog, Reglan Skin: Unstageable to sacrum. Improving per wound care note. RD will monitor weight, labs, skin, meds and oral intake every 5 days.
--- NOTE | 2023-11-22 12:04 | PCDIET ---
TPN recommendation: Clinmix 03/28 E: Start at 30 ml h DUE TO RISK OF REFEEDING SYNDROME. Goal is 60 ml/h: 1522 kcal, 72 g protein, 1690 ml total volume. Because of prolonged NPO and low potassium and PO4, high risk of refeeding syndrome. Recommend THIAMINE supplementation: Vitamin replacement should be started straight away, in particular thiamine and vitamin B to reduce the incidence of Wernicke's encephalopathy or Korsakoff's syndrome, with 200?300 mg oral thiamine daily, and 1?2 tablets vitamin B high potency 3 times daily, and multivitamin or trace element supplement once daily. https://www.ncbi.nlm.nih.gov/pmc/articles/ZIK2911232/#:~:text=Vitamin%20replacement%20should%20be%20started,trace%20element%20supplement%20once%20daily.
[2023-11-22] MEDS: LIDOCAINE 5% PATCH 1 PATCH TRANSDERM (12:46)
[2023-11-22] MEDS: MEROPENEM 500 MG in SODIUM CHLORIDE 0.9% IV 100 ML 200 ML IVPB (12:46)
[2023-11-22] MEDS: MIDODRINE HCL 10 MG TABLET 20 MG PO ×2 (12:47→18:44)
[2023-11-22] MEDS: PANTOPRAZOLE SODIUM IV 40 MG VIAL IV PUSH (12:47)
--- NOTE | 2023-11-22 13:32 | WPDGIPROGNO ---
Progress Note: A&P Assessment and Plan (1) COVID: Code(s): U07.1 - COVID-19 Status: Acute Assessment and Plan: this was diagnosed on admission 2 days ago (2) Adynamic ileus: Code(s): K56.0 - Paralytic ileus Status: Chronic Assessment and Plan: CT scan 2 days ago shows a dilated colon consistent with ileus. He has palpably dilated loops of bowel. NG tube has not yet been placed. I will order that immediately. He will need daily KUB. We may need to perform a colonic decompression. He denies chronic constipation, states he has a bowel movement usually once a day. I have reviewed his CT scan. The official reading is: IMPRESSION: 1. Dilated colon, consistent with adynamic ileus. 2. Discitis/osteomyelitis at L2-L3, slightly worsened from 09/22/2023. 3. Moderate-sized right and small left pleural effusions. 4. Small volume of ascites. 11/19/2023 this is clearly an ongoing, chronic issue with him. I see that he was hospitalized in August with similar dilatation of the bowel. He she with NG suction and seen by surgery at that time. X-rays that showed dilated bowel both large and small bowel. Again last month, CT shows similar findings, specifically: 1. Persistent colonic distention with air-fluid levels which could reflect adynamic ileus. 2. Small pleural effusions with associated passive atelectasis in the visualized lung bases. I spoke with his at length. She told me that his current situation is his status: That he has had a distended abdomen and apparently ileus for quite a while. Despite that she states that he has no difficulty eating. Having bowel movements is difficult now because of his amputation. (3) Elevated troponin: Code(s): R79.89 - Other specified abnormal findings of blood chemistry Status: Acute (4) Acute hypokalemia: Code(s): E87.6 - Hypokalemia Status: Acute Assessment and Plan: Potassium was down to 2.3. I see that last month and also was in the 2s when he was hospitalized. This may have something to do with his ileus. I see, looking back, that his potassium was in the area of 2.8 when he was hospitalized in August and again in September. We may need Nephrology to assist with keeping his potassium in the normal range. Potassium still is in the low threes. He is only getting 40 mEq potassium per day supplement. It seems that he is going to need a larger dose. I wonder if there is some other explanation for his hypo kalemia such as adrenal problem? Nephrology is following. (5) Altered mental status: Code(s): R41.82 - Altered mental status, unspecified Status: Acute Assessment and Plan: He is confused as to when he got here. He recalls driving some more and then ending up here in the hospital. (6) Hemodialysis patient: Code(s): Z99.2 - Dependence on renal dialysis Status: Acute Assessment and Plan: He has been on hemodialysis for few years, according to him. His history is not quite reliable however. (7) Anticoagulant long-term use: Code(s): Z79.01 - watermaster (current) use of anticoagulants Status: Chronic Assessment and Plan: he is on long-term anticoagulation with Eliquis. INR today is 2.0. Plan insert NG tube immediately. Dulcolax suppository to mobilize and stimulate: Peristalsis KUB now and daily to monitor progress if colonic dilatation worsens, he may need decompression Because he has showed no response, I will discontinue metoclopramide Subjective Date/time seen: 11/22/23 13:32 The patient denies complaints. He denies abdominal pain. I Had ordered a regular diet but he is NPO now. had a long discussion with his who tells me that he has had abdominal distension for quite a while, even before his amputation. Exam Const: General: cooperative and healthy appearing Orientation/consciousness: patient oriented x3
[2023-11-22 14:00] LABS: Glucose Point of Care 99 mg/dl (65-105)
[2023-11-22 14:00] LABS: Glucose Point of Care 90 mg/dl (65-105)
--- NOTE | 2023-11-22 16:27 | PM.IMPN ---
Progress Note: A&P Assessment and Plan (1) COVID: Code(s): U07.1 - COVID-19 Status: Acute (2) Discitis of lumbar region: Code(s): M46.46 - Discitis, unspecified, lumbar region Status: Acute (3) Acute hypokalemia: Code(s): E87.6 - Hypokalemia Status: Acute (4) Adynamic ileus: Code(s): K56.0 - Paralytic ileus Status: Chronic (5) Acute hypoxemic respiratory failure: Code(s): J96.01 - Acute respiratory failure with hypoxia Status: Acute (6) Weakness: Code(s): R53.1 - Weakness Status: Acute (7) Hemodialysis patient: Code(s): Z99.2 - Dependence on renal dialysis Status: Acute (8) Anticoagulant long-term use: Code(s): Z79.01 - correction (current) use of anticoagulants Status: Chronic Plan 73M w/ PMH HTN, IDDM, a fib on eliquis, CAD s/p CABG, COPD, HLD, hyperthyroidism, ESRD on HD MWF via LUE AV fistula, right knee septic arthritis s/p AKA, L2-L4 osteomyelitis/diskitis, moderate-severe , gout, anemia, remote history of seizures presented with acute confusion during HD session, admitted on 11/16/23 # acute encephalopathy - now A&Ox3. the patient has recurrent confusion when going to dialysis. prior workup unrevealing. CT brain this admission w/o acute abnormalities. resolved # COVID 19 with acute hypoxic respiratory failure - persistent. He has received 5 days of remdesivir and Decadron. Continue Decadron and will also extend remdesivir course. He remains on 6 L high-flow nasal cannula. If O2 requirement worsens tocilizumab or baricitinib would be appropriate. - continue to trend CRP - ileus may be playing a role in restricting his lung capacity. Treat below - 11/21 he has been developing upper airway congestion. He is a mouth breather and appears very deconditioned. Start guaifenesin Pulmozyme and t.i.d. chest physiotherapy. Pulmonology consult would be appropriate if he does not improve today. -repeat chest x-ray on November 21 demonstrating developing right hazy opacities. Considering his weakness and upper airway congestion will start to cover for Hcap. dc vancomycin # ileus - discovered on CT.? This is chronic.? Abdomen is distended but non tender - GI consulted. reglan scheduled.? See Dulcolax x1.? No significant BM just yet. NG tube placement unsuccessful x2 and again failed with radiologist.? 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 Continue to appreciate GI recommendations.? He is on clear liquid diet and colonic decompression is a consideration. -in regards to his hypokalemia. this has been chronic.? The patient has a high potassium bath.? It will be difficult but goal potassium greater than 4.? Placed on 40 mEq KCL daily by Nephrology. He has very poor oral intake and in spite of chronic dialysis and high potassium bath has been hypokalemic for a long time. gi unable to pass NG tube consider PPN anusha pierson already involved # diskitis/osteomyeltitis at L2-L4 - treated initially in august 2023 at [place], was on cefepime at discharge but there are reports by nursing he may have not received those abx. on admission the diskitis appears slightly worsened on CT scan abd/pelv. transfer from ER rejected by [facility]. The patient does not believe he has it due to his pain being improved and now does not want to be transferred. It is likely a chronic issue as he is not currently septic, however the best we could offer is ongoing abx and close follow up with ID as outpatient -appears nonseptic. Cefepime switched to meropenem for Hcap and aspiration. # elevated troponins -flat, the pt denies chest pain # hypokalemia - replace per nephrology # ESRD on HD MWF - nephrology consulted. Seen in dialysis suite on November 21. He is on schedule # chronic anemia - HB on 11/17 05/20. transfused 1 unit - goal HB > 8.0 as pt has CAD Subjective Date/time seen: 11/22/23 16:27 Interval
[2023-11-22 16:33] LABS: Glucose Point of Care 75 mg/dl (65-105)
[2023-11-22] MEDS: APIXABAN 2.5 MG TABLET PO (18:44)
[2023-11-22] MEDS: DRONEDARONE HCL 400 MG TABLET PO (18:44)
[2023-11-22] MEDS: POTASSIUM CHLORIDE 20 MEQ PACKET (FOR LIQUID) PO (18:45)
[2023-11-22] MEDS: PRAMIPEXOLE 0.5 MG TABLET PO (18:46)
[2023-11-22 19:57] LABS: Glucose Point of Care 68 mg/dl (65-105)
[2023-11-22] MEDS: guaiFENesin 12 HR 600 MG TABCR 1200 MG PO (20:31)
[2023-11-22] MEDS: PREGABALIN (*CRX) 50 MG CAPSULE PO (20:31)
[2023-11-22] MEDS: ATORVASTATIN 40 MG TABLET PO (20:31)
[2023-11-22] MEDS: MELATONIN 3 MG TABLET PO (20:31)
[2023-11-22 20:44] LABS: Glucose Point of Care 111 mg/dl (65-105)
[2023-11-22] MEDS: ALTEPLASE 2 MG VIAL (CATHFLO) IV PUSH (22:32)
[2023-11-22] MEDS: REMDESIVIR 100 MG/NS 250 ML 100 MG/250 ML BAG 250 MG IVPB (22:32)
[2023-11-23] VITALS (32 sets, daily range): BP systolic 96–143; BP diastolic 37–91; PULSE 72–95; RESP 14–26; TEMP 35–37; O2SAT 89–100
[2023-11-23] MEDS: ALTEPLASE 2 MG VIAL (CATHFLO) IV PUSH (00:07)
[2023-11-23 00:21] LABS: Glucose Point of Care 76 mg/dl (65-105)
[2023-11-23] MEDS: CENTRAL LINE FLUSH 10 ML IV PUSH ×3 (06:17→21:19)
[2023-11-23 06:21] LABS: Glucose Point of Care 72 mg/dl (65-105)
[2023-11-23 06:22] LABS: Alanine Aminotransferase 17 U/L (6-50); Alkaline Phosphatase 69 U/L (38-126); Anion Gap 6 mmol/L (8-16); Aspartate Amino Transferase 26 U/L (17-59); Bilirubin,Total 0.6 mg/dL (0.2-1.3); Blood Urea Nitrogen 31 mg/dL (9-20); Calcium 7.8 mg/dL (8.4-10.2); Carbon Dioxide 27 mmol/L (22-30); Chloride 107 mmol/L (98-107); Estimated CRCL calculation 27 ml/min; Estimated Glomerular Filt Rate 24; Glucose 83 mg/dL (65-110); Magnesium 1.9 mg/dL (1.6-2.3); Phosphorus 2.7 mg/dL (2.5-4.5); Potassium 3.4 mmol/L (3.4-5.0); Sodium 140 mmol/L (137-145)
[2023-11-23] MEDS: SODIUM CHLORIDE 0.9% IV 1,000 ML 999 ML IV CONT (08:09)
[2023-11-23 08:10] LABS: Glucose Point of Care 94 mg/dl (65-105)
[2023-11-23] MEDS: ALBUMIN HUMAN 25% 12.5 GM/50ML 50 ML IVPB (09:58)
[2023-11-23] MEDS: EPOETIN ALFA-EPBX 10,000 UNITS/ML VIAL 10000 UNITS IV PUSH (09:59)
--- NOTE | 2023-11-23 10:05 | P.PNNP_ITS ---
Progress Note: A&P Assessment and Plan (1) End stage renal disease: Code(s): N18.6 - End stage renal disease Status: Chronic Assessment and Plan: * HD today * continue M/W/ outpatient dialysis schedule * follow electrolytes, volume status, and clearance (2) Altered mental status: Code(s): R41.82 - Altered mental status, unspecified Status: Acute Assessment and Plan: * has baseline confusion * furthermore, he waxes and wanes with his mentation at baseline * repeat CT scan of head noted * continue supportive therapy (3) COVID: Code(s): U07.1 - COVID-19 Status: Acute Assessment and Plan: * seems to be doing better but still requiring oxygen * continue supplemental oxygen and wean as tolerated * on decadron and remdesevir per protocol * follow CXR and respiratory status (4) Adynamic ileus: Code(s): K56.0 - Paralytic ileus Status: Chronic Assessment and Plan: * chronic issue as noted by evaluation to date * Surgery and GI recommendations noted * NPO at this time -*- -unable to place NG tube * to start TPN (5) Acute hypokalemia: Code(s): E87.6 - Hypokalemia Status: Acute Assessment and Plan: * also fluctuates * related to poor oral nutrition/oral intake * replace as needed and on chronic supplementation * adjust dialysis bath to compensate as well * liberalize diet (but NPO and to start TPN) (6) Atrial fibrillation: Code(s): I48.91 - Unspecified atrial fibrillation Status: Chronic Assessment and Plan: * rate control strategy * already on anticoagulation (7) Anemia: Code(s): D64.9 - Anemia, unspecified Status: Chronic Assessment and Plan: * due to ESRD and acute illness * Epogen with HD * PRBC transfusion per protocol * follow H/H (8) HTN (hypertension): Code(s): I10 - Essential (primary) hypertension Status: Chronic Assessment and Plan: * despite history, BP runs soft/on the low side * on midodrine already * follow trend of hemodynamics (9) DM2 (diabetes mellitus, type 2): Code(s): E11.9 - Type 2 diabetes mellitus without complications Status: Chronic Assessment and Plan: * follow accu-cheks * glycemic control per hospitalists Will oontinue to follow. Subjective Date/time seen: 11/23/23 10:05 Interval history: Follow-up for end stage renal disease on hemodialysis. Tolerating dialysis treatment at the time of my visit (seen on HD at 9:55AM); to start TPN today for nutritional support since NPO and unable to place enteral feeding tube; no other signigicant change noted. Exam Narrative: General: somewhat chronically ill appearing male in NAD Heart: normal S1 and S2; no rub Lungs: coarse breath sounds Abdomen: soft, nontender, positive bowel sounds Extremities: no cyanosis or clubbing; s/p right AKA Skin: no nodules Objective Data Vital Signs Vital Signs: Vital Signs Temp Pulse Resp BP Pulse Ox O2 Del Method O2 Flow Rate 11/23/23 07:40 96.9 F L 78 14 119/50 L 100 11/23/23 06:00 76 11/23/23 04:00 83 11/23/23 06:06 97.3 F L 81 20 101/48 L 98 11/23/23 04:00 100 High Flow Nasal Cannula 12 11/23/23 02:00 87 01
--- NOTE | 2023-11-23 10:05 | PM.PNNEP ---
Progress Note: A&P Assessment and Plan (1) End stage renal disease: Code(s): N18.6 - End stage renal disease Status: Chronic Assessment and Plan: HD today continue M/W/F outpatient dialysis schedule follow electrolytes, volume status, and clearance (2) Altered mental status: Code(s): R41.82 - Altered mental status, unspecified Status: Acute Assessment and Plan: has baseline confusion furthermore, he waxes and wanes with his mentation at baseline repeat CT scan of head noted continue supportive therapy (3) COVID: Code(s): U07.1 - COVID-19 Status: Acute Assessment and Plan: seems to be doing better but still requiring oxygen continue supplemental oxygen and wean as tolerated on decadron and remdesevir per protocol follow CXR and respiratory status (4) Adynamic ileus: Code(s): K56.0 - Paralytic ileus Status: Chronic Assessment and Plan: chronic issue as noted by evaluation to date Surgery and GI recommendations noted NPO at this time unable to place NG tube to start TPN (5) Acute hypokalemia: Code(s): E87.6 - Hypokalemia Status: Acute Assessment and Plan: also fluctuates related to poor oral nutrition/oral intake replace as needed and on chronic supplementation adjust dialysis bath to compensate as well liberalize diet (but NPO and to start TPN) (6) Atrial fibrillation: Code(s): I48.91 - Unspecified atrial fibrillation Status: Chronic Assessment and Plan: rate control strategy already on anticoagulation (7) Anemia: Code(s): D64.9 - Anemia, unspecified Status: Chronic Assessment and Plan: due to ESRD and acute illness Epogen with HD PRBC transfusion per protocol follow H/H (8) HTN (hypertension): Code(s): I10 - Essential (primary) hypertension Status: Chronic Assessment and Plan: despite history, BP runs soft/on the low side on midodrine already follow trend of hemodynamics (9) DM2 (diabetes mellitus, type 2): Code(s): E11.9 - Type 2 diabetes mellitus without complications Status: Chronic Assessment and Plan: follow accu-cheks glycemic control per hospitalists Will ruthontinue to follow. Subjective Date/time seen: 11/23/23 10:05 Interval history: Follow-up for end stage renal disease on hemodialysis. Tolerating dialysis treatment at the time of my visit (seen on HD at 9:55AM); to start TPN today for nutritional support since NPO and unable to place enteral feeding tube; no other signigicant change noted. Exam Narrative: General: somewhat chronically ill appearing male in NAD Heart: normal S1 and S2; no rub Lungs: coarse breath sounds Abdomen: soft, nontender, positive bowel sounds Extremities: no cyanosis or clubbing; s/p right AKA Skin: no nodules Objective Data Vital Signs Vital Signs: Vital Signs Temp Pulse Resp BP Pulse Ox O2 Del Method O2 Flow Rate 11/23/23 07:40 96.9 F L 78 14 119/50 L 100 11/23/23 06:00 76 11/23/23 04:00 83 11/23/23 06:06 97.3 F L 81 20 101/48 L 98 11/23/23 04:00 100 High Flow Nasal Cannula 12 11/23/23 02:00 87 11/23/23 00:00 100 High Flow Nasal Cannula 12 11/23/23 00:00 86 11/22/23 22:00 90 11/22/23 20:00 91 11/23/23 00:00 97.0 F L 85 20 116/91 H 100 11/22/23 20:00 97.8 F 92 18 113/77 94 11/22/23 20:00 96 Venturi Mask 15 11/22/23 18:00 96 11/22/23 16:00 98 11/22/23 16:00 100 Venturi Mask 15 11/22/23 20:26 24 H 98 High Flow Nasal Cannula 12 11/22/23 20:26 92 24 H 11/22/23 20:13 93 24 H 11/22/23 18:44 92 11/22/23 15:34 97.9 F 86 18 97/51 L 97 Intake/Output Intake/Output: Intake & Output 11/20/23 11/21/23 11/22/23 11/23/23 23:59 23:59 23:59 23:59 Inta
--- NOTE | 2023-11-23 10:40 | PCRCNOTE ---
Window of time for administration has passed. See next scheduled administration.
--- NOTE | 2023-11-23 11:13 | PCSTNOTE ---
[employer] attempted to see pt. Nurse stated that pt was in dialysis.
[2023-11-23 12:37] LABS: Glucose Point of Care 78 mg/dl (65-105)
[2023-11-23] MEDS: APIXABAN 2.5 MG TABLET PO ×2 (13:00→21:18)
[2023-11-23] MEDS: POTASSIUM CHLORIDE 20 MEQ PACKET (FOR LIQUID) PO ×2 (13:05→17:11)
[2023-11-23] MEDS: guaiFENesin 12 HR 600 MG TABCR 1200 MG PO ×2 (13:06→21:18)
[2023-11-23] MEDS: DRONEDARONE HCL 400 MG TABLET PO ×2 (13:06→17:10)
[2023-11-23] MEDS: calcitrioL 0.25 MCG CAPSULE PO (13:06)
[2023-11-23] MEDS: ASPIRIN 81 MG CHEWABLE TABLET PO (13:08)
[2023-11-23] MEDS: MIDODRINE HCL 10 MG TABLET 20 MG PO ×2 (13:08→17:11)
[2023-11-23] MEDS: CYANOCOBALAMIN 1,000 MCG TABLET 1000 MCG PO (13:09)
[2023-11-23] MEDS: PRAMIPEXOLE 0.5 MG TABLET PO ×2 (13:09→17:12)
[2023-11-23] MEDS: MEROPENEM 500 MG in SODIUM CHLORIDE 0.9% IV 100 ML 200 ML IVPB (13:09)
[2023-11-23] MEDS: LIDOCAINE 5% PATCH 1 PATCH TRANSDERM (13:10)
[2023-11-23] MEDS: PANTOPRAZOLE SODIUM IV 40 MG VIAL IV PUSH (13:12)
--- NOTE | 2023-11-23 15:23 | PM.IMPN ---
Progress Note: A&P Assessment and Plan (1) COVID: Code(s): U07.1 - COVID-19 Status: Acute (2) Discitis of lumbar region: Code(s): M46.46 - Discitis, unspecified, lumbar region Status: Acute (3) Acute hypokalemia: Code(s): E87.6 - Hypokalemia Status: Acute (4) Adynamic ileus: Code(s): K56.0 - Paralytic ileus Status: Chronic (5) Acute hypoxemic respiratory failure: Code(s): J96.01 - Acute respiratory failure with hypoxia Status: Acute (6) Weakness: Code(s): R53.1 - Weakness Status: Acute (7) Hemodialysis patient: Code(s): Z99.2 - Dependence on renal dialysis Status: Acute (8) Anticoagulant long-term use: Code(s): Z79.01 - MCC (current) use of anticoagulants Status: Chronic Plan 73M w/ PMH HTN, IDDM, a fib on eliquis, CAD s/p CABG, COPD, HLD, hyperthyroidism, ESRD on HD MWF via LUE AV fistula, right knee septic arthritis s/p AKA, L2-L4 osteomyelitis/diskitis, moderate-severe , gout, anemia, remote history of seizures presented with acute confusion during HD session, admitted on 11/16/23 # acute encephalopathy - now A&Ox3. the patient has recurrent confusion when going to dialysis. prior workup unrevealing. CT brain this admission w/o acute abnormalities. resolved # COVID 19 with acute hypoxic respiratory failure - persistent. He has received 5 days of remdesivir and Decadron. Continue Decadron and will also extend remdesivir course. He remains on 6 L high-flow nasal cannula. If O2 requirement worsens tocilizumab or baricitinib would be appropriate. - continue to trend CRP - ileus may be playing a role in restricting his lung capacity. Treat below - 11/21 he has been developing upper airway congestion. He is a mouth breather and appears very deconditioned. Start guaifenesin Pulmozyme and t.i.d. chest physiotherapy. Pulmonology consult would be appropriate if he does not improve today. -repeat chest x-ray on November 21 demonstrating developing right hazy opacities. Considering his weakness and upper airway congestion will start to cover for Hcap. dc vancomycin # ileus - discovered on CT.? This is chronic.? Abdomen is distended but non tender - GI consulted. reglan scheduled.? See Dulcolax x1.? No significant BM just yet. NG tube placement unsuccessful x2 and again failed with radiologist.? 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 Continue to appreciate GI recommendations.? He is on clear liquid diet and colonic decompression is a consideration. -in regards to his hypokalemia. this has been chronic.? The patient has a high potassium bath.? It will be difficult but goal potassium greater than 4.? Placed on 40 mEq KCL daily by Nephrology. He has very poor oral intake and in spite of chronic dialysis and high potassium bath has been hypokalemic for a long time. gi unable to pass NG tube clears being tried with PPN pt is hungry # diskitis/osteomyeltitis at L2-L4 - treated initially in august 2023 at [place], was on cefepime at discharge but there are reports by nursing he may have not received those abx. on admission the diskitis appears slightly worsened on CT scan abd/pelv. transfer from ER rejected by [place]. The patient does not believe he has it due to his pain being improved and now does not want to be transferred. It is likely a chronic issue as he is not currently septic, however the best we could offer is ongoing abx and close follow up with ID as outpatient -appears nonseptic. # elevated troponins -flat, the pt denies chest pain # hypokalemia - replace per nephrology # ESRD on HD MWF - nephrology consulted. Seen in dialysis suite on November 21. He is on schedule # chronic anemia - HB on 11/17 05/20. transfused 1 unit - goal HB > 8.0 as pt has CAD Subjective Date/time seen: 11/23/23 15:23 Interval history: Patient has been complaining of worsening dyspn
[2023-11-23] MEDS: AMINO ACIDS 5%/DEXTROSE 15% 2,000 ML with MULTIVITAMINS-12 INJ VIAL 1 2.5 ML, MULTIVITA... 40 ML IV CONT (16:13)
[2023-11-23] MEDS: FAT EMULSIONS IV 20% 250 ML 20.83 ML IVPB (16:14)
[2023-11-23 16:57] LABS: Glucose Point of Care 143 mg/dl (65-105)
[2023-11-23] MEDS: ALBUTEROL SULFATE NEB 2.5 MG/3 ML INH INHALATION (20:34)
[2023-11-23] MEDS: DORNASE ALFA INH SOLN 1 MG/ML 2.5 ML AMP 2.5 MG INHALATION (20:34)
[2023-11-23] MEDS: ATORVASTATIN 40 MG TABLET PO (21:18)
[2023-11-23] MEDS: PREGABALIN (*CRX) 50 MG CAPSULE PO (21:18)
[2023-11-23] MEDS: MELATONIN 3 MG TABLET PO (21:18)
[2023-11-23] MEDS: REMDESIVIR 100 MG/NS 250 ML 100 MG/250 ML BAG 250 MG IVPB (21:19)
[2023-11-24] VITALS (18 sets, daily range): BP systolic 90–109; BP diastolic 51–69; PULSE 62–104; RESP 18–34; TEMP 35.5–36.6; O2SAT 91–100
[2023-11-24 05:01] LABS: Glucose Point of Care 273 mg/dl (65-105)
[2023-11-24 05:01] LABS: Glucose Point of Care 259 mg/dl (65-105)
[2023-11-24 05:48] LABS: Hematocrit 22.8 % (42.0-52.0); Hemoglobin 7.6 g/dL (14.0-18.0); Immature Granulocyte Absolute 0.08 K/mm3 (0.00-0.031); Lymphocytes Absolute Auto 0.25 K/mm3 (0.9-3.2); Mean Corpuscular HGB Conc 33.3 g/dl (32-36); Mean Corpuscular Hemoglobin 31.8 pg (26-34); Mean Corpuscular Volume 95.4 fl (80-100); Mean Platelet Volume 10.1 fl (7.4-10.4); Monocytes Absolute Auto 0.2 K/mm3 (0.1-0.6); Monocytes Percent Auto 2.2 % (2.6-8.5); Neutrophils Absolute Auto 7.8 K/mm3 (1.3-6.7); Neutrophils Percent Auto 93.8 % (45.5-73.1); Nucleated Red Blood Cells Absolute Auto 0.1 K/mm3 (0.0-0.012); Nucleated Red Blood Cells Perc 0.7 % (0.0-0.2); Platelet Count Result 158 k/mm3 (150-375); Red Blood Count 2.39 M/mm3 (4.6-6.20); Red Cell Distribution Width 18.9 % (11.5-14.5); White Blood Count 8.4 K/mm3 (4.5-10.0)
[2023-11-24 06:00] LABS: Alanine Aminotransferase 17 U/L (6-50); Albumin Level 1.9 g/dL (3.5-5.1); Alkaline Phosphatase 75 U/L (38-126); Anion Gap 5 mmol/L (8-16); Aspartate Amino Transferase 32 U/L (17-59); Bilirubin,Total 0.9 mg/dL (0.2-1.3); Blood Urea Nitrogen 23 mg/dL (9-20); Calcium 7.6 mg/dL (8.4-10.2); Carbon Dioxide 26 mmol/L (22-30); Chloride 106 mmol/L (98-107); Estimated CRCL calculation 39 ml/min; Estimated Glomerular Filt Rate 37; Glucose 290 mg/dL (65-110); Magnesium 1.8 mg/dL (1.6-2.3); Phosphorus 1.3 mg/dL (2.5-4.5); Potassium 3.3 mmol/L (3.4-5.0); Sodium 137 mmol/L (137-145); Triglycerides 60 mg/dL (<150)
[2023-11-24] MEDS: CENTRAL LINE FLUSH 10 ML IV PUSH ×3 (06:28→20:56)
[2023-11-24] MEDS: ALBUTEROL SULFATE NEB 2.5 MG/3 ML INH INHALATION ×2 (07:20→20:58)
[2023-11-24] MEDS: DORNASE ALFA INH SOLN 1 MG/ML 2.5 ML AMP 2.5 MG INHALATION ×2 (07:20→20:58)
[2023-11-24 08:24] LABS: Transferrin < 80 mg/dL (206-381)
[2023-11-24] MEDS: CYANOCOBALAMIN 1,000 MCG TABLET 1000 MCG PO (09:25)
[2023-11-24] MEDS: DRONEDARONE HCL 400 MG TABLET PO ×2 (09:25→17:50)
[2023-11-24] MEDS: guaiFENesin 12 HR 600 MG TABCR 1200 MG PO ×2 (09:25→20:55)
[2023-11-24] MEDS: ASPIRIN 81 MG CHEWABLE TABLET PO (09:25)
[2023-11-24] MEDS: calcitrioL 0.25 MCG CAPSULE PO (09:25)
[2023-11-24] MEDS: APIXABAN 2.5 MG TABLET PO ×2 (09:26→20:56)
[2023-11-24] MEDS: PANTOPRAZOLE SODIUM IV 40 MG VIAL IV PUSH (09:26)
[2023-11-24] MEDS: MIDODRINE HCL 10 MG TABLET 20 MG PO ×3 (09:26→17:50)
[2023-11-24] MEDS: LIDOCAINE 5% PATCH 1 PATCH TRANSDERM (09:26)
[2023-11-24] MEDS: PRAMIPEXOLE 0.5 MG TABLET PO ×2 (09:26→17:52)
[2023-11-24] MEDS: POTASSIUM CHLORIDE 20 MEQ PACKET (FOR LIQUID) PO (09:26)
[2023-11-24] MEDS: MEROPENEM 500 MG in SODIUM CHLORIDE 0.9% IV 100 ML IVPB (09:32)
[2023-11-24 10:00] LABS: Glucose Point of Care 401 mg/dl (65-105)
[2023-11-24] MEDS: INSULIN ASPART (*BKC) 100 UNITS/ML 10 UNITS SUB-Q (12:26)
[2023-11-24 12:27] LABS: Glucose Point of Care 291 mg/dl (65-105)
[2023-11-24] MEDS: AMINO ACIDS 5%/DEXTROSE 15% 2,000 ML with MULTIVITAMINS-12 INJ VIAL 1 2.5 ML, MULTIVITA... 40 ML IV CONT (13:36)
[2023-11-24] MEDS: FAT EMULSIONS IV 20% 250 ML 20.8 ML IVPB (13:36)
[2023-11-24] MEDS: INSULIN ASPART (*BKC) 100 UNITS/ML SUB-Q (13:37)
--- NOTE | 2023-11-24 13:41 | PCSTNOTE ---
CHARLETTE Crisostomo, notified Olivia Benedict that is entering an order for a Modified Barium Swallow study to be completed Sunday 11/26 after ending of isolation status secondary to COVID diagnosis.
--- NOTE | 2023-11-24 13:43 | PM.IMPN ---
Progress Note: A&P Assessment and Plan (1) COVID: Code(s): U07.1 - COVID-19 Status: Acute (2) Discitis of lumbar region: Code(s): M46.46 - Discitis, unspecified, lumbar region Status: Acute (3) Acute hypokalemia: Code(s): E87.6 - Hypokalemia Status: Acute (4) Adynamic ileus: Code(s): K56.0 - Paralytic ileus Status: Chronic (5) Acute hypoxemic respiratory failure: Code(s): J96.01 - Acute respiratory failure with hypoxia Status: Acute (6) Weakness: Code(s): R53.1 - Weakness Status: Acute (7) Hemodialysis patient: Code(s): Z99.2 - Dependence on renal dialysis Status: Acute (8) Anticoagulant long-term use: Code(s): Z79.01 - half-way (current) use of anticoagulants Status: Chronic Plan 73M w/ PMH HTN, IDDM, a fib on eliquis, CAD s/p CABG, COPD, HLD, hyperthyroidism, ESRD on HD MWF via LUE AV fistula, right knee septic arthritis s/p AKA, L2-L4 osteomyelitis/diskitis, moderate-severe , gout, anemia, remote history of seizures presented with acute confusion during HD session, admitted on 11/16/23 # acute encephalopathy - now A&Ox3. the patient has recurrent confusion when going to dialysis. prior workup unrevealing. CT brain this admission w/o acute abnormalities. resolved # COVID 19 with acute hypoxic respiratory failure - persistent. He has received 5 days of remdesivir and Decadron. Continue Decadron and will also extend remdesivir course. He remains on 6 L high-flow nasal cannula. If O2 requirement worsens tocilizumab or baricitinib would be appropriate. - continue to trend CRP - ileus may be playing a role in restricting his lung capacity. Treat below - 11/21 he has been developing upper airway congestion. He is a mouth breather and appears very deconditioned. Start guaifenesin Pulmozyme and t.i.d. chest physiotherapy. Pulmonology consult would be appropriate if he does not improve today. -repeat chest x-ray on November 21 demonstrating developing right hazy opacities. Considering his weakness and upper airway congestion will start to cover for Hcap. dc vancomycin, pt treated with 5 +3 days of remdesivir treatment # ileus - discovered on CT.? This is chronic.? Abdomen is distended but non tender - GI consulted. reglan scheduled.? See Dulcolax x1.? No significant BM just yet. NG tube placement unsuccessful x2 and again failed with radiologist.? 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 Continue to appreciate GI recommendations.? He is on clear liquid diet and colonic decompression is a consideration. -in regards to his hypokalemia. this has been chronic.? The patient has a high potassium bath.? It will be difficult but goal potassium greater than 4.? Placed on 40 mEq KCL daily by Nephrology. He has very poor oral intake and in spite of chronic dialysis and high potassium bath has been hypokalemic for a long time. gi unable to pass NG tube clears being tried Nurse report ptwas choking on clear liquids PPN started Pt can continue with PPN, 2 nd day of PPN pt to have MBS anusha # diskitis/osteomyeltitis at L2-L4 - treated initially in august 2023 at [place], was on cefepime at discharge but there are reports by nursing he may have not received those abx. on admission the diskitis appears slightly worsened on CT scan abd/pelv. transfer from ER rejected by [place]. The patient does not believe he has it due to his pain being improved and now does not want to be transferred. It is likely a chronic issue as he is not currently septic, however the best we could offer is ongoing abx and close follow up with ID as outpatient -appears nonseptic. # elevated troponins -flat, the pt denies chest pain # hypokalemia - replace per nephrology # ESRD on HD MWF - nephrology consulted. Seen in dialysis suite on November 21. He is on schedule # chronic anemia - HB on 11/17 05/20. transfused 1 unit -
--- NOTE | 2023-11-24 13:48 | PM.PNNEP ---
Progress Note: A&P Assessment and Plan (1) End stage renal disease: Code(s): N18.6 - End stage renal disease Status: Chronic Assessment and Plan: HD tomorrow continue M/W/F outpatient dialysis schedule follow electrolytes, volume status, and clearance ok to stop phosphorus binders given low phosphorus (2) Altered mental status: Code(s): R41.82 - Altered mental status, unspecified Status: Acute Assessment and Plan: has baseline confusion furthermore, he waxes and wanes with his mentation at baseline repeat CT scan of head noted continue supportive therapy (3) COVID: Code(s): U07.1 - COVID-19 Status: Acute Assessment and Plan: seems to be doing better bu still requiring oxygen continue supplemental oxygen and wean as tolerated on decadron and remdesevir per protocol follow CXR (4) Adynamic ileus: Code(s): K56.0 - Paralytic ileus Status: Chronic Assessment and Plan: chronic issue as noted by evaluation to date Surgery and GI recommendations noted NPO at this time on TPN support any further intervnetion needed(?) (5) Acute hypokalemia: Code(s): E87.6 - Hypokalemia Status: Acute Assessment and Plan: also fluctuates related to poor oral nutrition/oral intake replace as needed and on chronic supplementation adjust dialysis bath to compensate as well liberalize diet (but NPO and on TPN) (6) Atrial fibrillation: Code(s): I48.91 - Unspecified atrial fibrillation Status: Chronic Assessment and Plan: rate control strategy already on anticoagulation (7) Anemia: Code(s): D64.9 - Anemia, unspecified Status: Chronic Assessment and Plan: due to ESRD and acute illness Epogen with HD PRBC transfusion per protocol follow H/H (8) HTN (hypertension): Code(s): I10 - Essential (primary) hypertension Status: Chronic Assessment and Plan: despite history, BP runs soft/on the low side on midodrine already follow trend of hemodynamics (9) DM2 (diabetes mellitus, type 2): Code(s): E11.9 - Type 2 diabetes mellitus without complications Status: Chronic Assessment and Plan: follow accu-cheks glycemic control per hospitalists Will oontinue to follow. Subjective Date/time seen: 11/24/23 13:48 Interval history: Follow-up for end stage renal disease on hemodialysis. Tolerated dialysis treatment yesterday without any issues or problems; H/H still on the lower side of normal with ongoing hypokalemia despite supplementation; remains NPO and on TPN support; reports his breathing is okay. Exam Narrative: General: somewhat chronically ill appearing male in NAD Heart: normal S1 and S2; no rub Lungs: coarse and decreased throughout Abdomen: soft, nontender, positive bowel sounds Extremities: no cyanosis or clubbing; s/p right AKA Skin: warm and dry Objective Data Vital Signs Vital Signs: Vital Signs Temp Pulse Resp BP Pulse Ox O2 Del Method O2 Flow Rate 11/24/23 12:00 97.7 F 99 30 H 98/56 L 91 11/24/23 08:00 93 Nasal Cannula 3 11/24/23 09:25 88 11/24/23 07:30 80 18 11/24/23 07:20 77 18 11/24/23 07:20 77 18 95 Nasal Cannula 3 11/24/23 08:00 96 F L 91 34 H 95/55 L 93 11/24/23 00:55 96.9 F L 104 H 22 H 90/51 L 93 11/23/23 20:00 98 High Flow Nasal Cannula 4 11/23/23 20:34 24 H 98 High Flow Nasal Cannula 4 11/23/23 20:34 92 22 H Intake/Output Intake/Output: Intake & Output 11/21/23 11/22/23 11/23/23 11/24/23 23:59 23:59 23:59 23:59 Intake Total 1690 075 092 8869 Output Total 1000 100 325 0 Balance 690 732 294 1618 Meds/Results Medications: Active Medications Generic Name Dose Route Start Last Admin Trade Name Freq PRN Reason Stop Dose Admin Acetaminophen 650 mg 11/17/23 03:14 01
--- NOTE | 2023-11-24 13:48 | P.PNNP_ITS ---
Progress Note: A&P Assessment and Plan (1) End stage renal disease: Code(s): N18.6 - End stage renal disease Status: Chronic Assessment and Plan: * HD tomorrow * continue M/W/ outpatient dialysis schedule * follow electrolytes, volume status, and clearance * ok to stop phosphorus binders given low phosphorus (2) Altered mental status: Code(s): R41.82 - Altered mental status, unspecified Status: Acute Assessment and Plan: * has baseline confusion * furthermore, he waxes and wanes with his mentation at baseline * repeat CT scan of head noted * continue supportive therapy (3) COVID: Code(s): U07.1 - COVID-19 Status: Acute Assessment and Plan: * seems to be doing better bu still requiring oxygen * continue supplemental oxygen and wean as tolerated * on decadron and remdesevir per protocol * follow CXR (4) Adynamic ileus: Code(s): K56.0 - Paralytic ileus Status: Chronic Assessment and Plan: * chronic issue as noted by evaluation to date * Surgery and GI recommendations noted * NPO at this time * on TPN support * any further intervnetion needed(?) (5) Acute hypokalemia: Code(s): E87.6 - Hypokalemia Status: Acute Assessment and Plan: * also fluctuates * related to poor oral nutrition/oral intake * replace as needed and on chronic supplementation * adjust dialysis bath to compensate as well * liberalize diet (but NPO and on TPN) (6) Atrial fibrillation: Code(s): I48.91 - Unspecified atrial fibrillation Status: Chronic Assessment and Plan: * rate control strategy * already on anticoagulation (7) Anemia: Code(s): D64.9 - Anemia, unspecified Status: Chronic Assessment and Plan: * due to ESRD and acute illness * Epogen with HD * PRBC transfusion per protocol * follow H/H (8) HTN (hypertension): Code(s): I10 - Essential (primary) hypertension Status: Chronic Assessment and Plan: * despite history, BP runs soft/on the low side * on midodrine already * follow trend of hemodynamics (9) DM2 (diabetes mellitus, type 2): Code(s): E11.9 - Type 2 diabetes mellitus without complications Status: Chronic Assessment and Plan: * follow accu-cheks * glycemic control per hospitalists Will oontinue to follow. Subjective Date/time seen: 11/24/23 13:48 Interval history: Follow-up for end stage renal disease on hemodialysis. Tolerated dialysis treatment yesterday without any issues or problems; H/H still on the lower side of normal with ongoing hypokalemia despite supplementation; remains NPO and on TPN support; reports his breathing is okay. Exam Narrative: General: somewhat chronically ill appearing male in NAD Heart: normal S1 and S2; no rub Lungs: coarse and decreased throughout Abdomen: soft, nontender, positive bowel sounds Extremities: no cyanosis or clubbing; s/p right AKA Skin: warm and dry Objective Data Vital Signs Vital Signs: Vital Signs Temp Pulse Resp BP Pulse Ox O2 Del Method O2 Flow Rate 11/24/23 12:00 97.7 F 99 30 H 98/56 L 91 11/24/23 08:00 93 Nasal Cannula 3 11/24/23 09:25 88 11/24/23 07:30 80 18 11/24/23 07:20 77 18 11/24/23
[2023-11-24] MEDS: SODIUM CHLORIDE 0.9% IV 250 ML 30 ML IV CONT (15:12)
--- NOTE | 2023-11-24 16:37 | PC.NURSE ---
This patient, Erma Harmon, was transferred to [facility] on 11/24/23 at 1615. Personal belongings sent with patient. Report given to CHARLETTE Briseno. Appropriate documentation sent with patient. Spouse was informed of pt transfer
[2023-11-24 17:40] LABS: Glucose Point of Care 198 mg/dl (65-105)
[2023-11-24] MEDS: POTASSIUM CHLORIDE 20 MEQ PACKET (FOR LIQUID) 40 MEQ PO (17:50)
--- NOTE | 2023-11-24 18:21 | PC.NURSE ---
Patient received by transfer via bed at 1620. Droplet isolation continued for COVID dx. Patient on 2LPM/NC. Denies any pain or discomfort when asked. Call light within reach. Patient A&Ox3 and oriented of its used. Reminded to call for any assistance.
[2023-11-24] MEDS: MELATONIN 3 MG TABLET PO (20:55)
[2023-11-24] MEDS: PREGABALIN (*CRX) 50 MG CAPSULE PO (20:55)
[2023-11-24] MEDS: REMDESIVIR 100 MG/NS 250 ML 100 MG/250 ML BAG 250 MG IVPB (20:56)
[2023-11-24] MEDS: ATORVASTATIN 40 MG TABLET PO (20:56)
[2023-11-25 00:29] LABS: Glucose Point of Care 228 mg/dl (65-105)
[2023-11-25] MEDS: INSULIN ASPART (*BKC) 100 UNITS/ML SUB-Q (00:37)
--- NOTE | 2023-11-27 19:05 | PM.DDS ---
Discharge Summary Date and Time Date of : 11/25/23 Time of : 05:52 Provider Pronounced By: Bertin Harris RN, Arcenio Luz RN Probable Cause of Probable Cause of : COVID 19 with acute hypoxic respiratory failure ileus Diskitis/osteomyelitis at L2-L4 ESRD H/ o CAD Summary Hospital Course: 73M w/ PMH HTN, IDDM, a fib on eliquis, CAD s/p CABG, COPD, HLD, hyperthyroidism, ESRD on HD MWF via LUE AV fistula, right knee septic arthritis s/p AKA, L2-L4 osteomyelitis/diskitis, moderate-severe , gout, anemia, remote history of seizures presented with acute confusion during HD session, admitted on 11/16/23 # acute encephalopathy - now A&Ox3. the patient has recurrent confusion when going to dialysis. prior workup unrevealing. CT brain this admission w/o acute abnormalities. resolved # COVID 19 with acute hypoxic respiratory failure - persistent.? He has received 5 days of remdesivir and Decadron.? Continue Decadron and will also extend remdesivir course.? He remains on 6 L high-flow nasal cannula.? If O2 requirement worsens tocilizumab or baricitinib would be appropriate. - continue to trend CRP - ileus may be playing a role in restricting his lung capacity.? Treat below - 11/21 he has been developing upper airway congestion.? He is a mouth breather and appears very deconditioned. Start guaifenesin Pulmozyme and t.i.d. chest physiotherapy. Pulmonology consult would be appropriate if he does not improve today. -repeat chest x-ray on November 21 demonstrating developing right hazy opacities.? Considering his weakness and upper airway congestion will start to cover for Hcap.? dc vancomycin, pt treated with 5 +3 days of remdesivir treatment # ileus - discovered on CT.? This is chronic.? Abdomen is distended but non tender - GI consulted. reglan scheduled.? See Dulcolax x1.? No significant BM just yet. NG tube placement unsuccessful x2 and again failed with radiologist.? 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 Continue to appreciate GI recommendations.? He is on clear liquid diet and colonic decompression is a consideration. -in regards to his hypokalemia. this has been chronic.? The patient has a high potassium bath.? It will be difficult but goal potassium greater than 4.? Placed on 40 mEq KCL daily by Nephrology.? He has very poor oral intake and in spite of chronic dialysis and high potassium bath has been hypokalemic for a long time. gi unable to pass NG tube clears being tried Nurse report ptwas choking on clear liquids PPN started Pt can continue with PPN, 2 nd day of PPN # diskitis/osteomyeltitis at L2-L4 - treated initially in august 2023 at [facility], was on cefepime at discharge but there are reports by nursing he may have not received those abx. on admission the diskitis appears slightly worsened on CT scan abd/pelv. transfer from ER rejected by [facility]. The patient does not believe he has it due to his pain being improved and now does not want to be transferred. It is likely a chronic issue as he is not currently septic, however the best we could offer is ongoing abx and close follow up with ID as outpatient -appears nonseptic. ? # elevated troponins -flat, the pt denies chest pain # hypokalemia - replace per nephrology # ESRD on HD MWF - nephrology consulted.? Seen in dialysis suite on November 21.? He is on schedule # chronic anemia - HB on 11/17 05/20. transfused 1 unit - goal HB > 8.0 as pt has CAD Pt passed at 11/25/2023 @552 pronounced by tayler NIEVES Additional Data Confirmation of as documented by pronouncing clinician: Pupillary Reflex, Palpable Pulses, Response to Stimuli, Heart Tones and Breath Sounds Name of Provider Notified: Sisi Time Provider Notified: 06:03 Provider Requests Autopsy: No Grievance Coordinator Notified: Yes Date [facility] Notified of : 11/25/23 Time [facility] Notified of : 06:04
== END 2023-11-25 05:52 | disposition expired | DRG 177 ==
LOC: ANHED 22:52 → ANHIMU 23:14 → ANHICU 11-17 01:15 → ANHIMU 11-19 12:56 → ANHICU 11-19 13:05 → ANHIMU 11-19 14:28 → ANH3MEDSUR 11-24 16:27
PROVIDERS: General Practice; Internal Medicine Gastroenterology; Internal Medicine Nephrology; Admitting Provider Family Medicine; Emergency Provider Student in an Organized Health Care Education/Training Program; PCP Nurse Practitioner Family; Visit Provider Family Medicine
PROC: 0DJD8ZZ Inspection of Lower Intestinal Tract, Via Natural or Artificial Opening Endoscopic (ICD-10-PCS; CPT 45378; principal; 2023-11-21 15:00)
DX: U07.1 COVID-19 (principal); J96.01 Acute respiratory failure with hypoxia; N18.6 End stage renal disease; I12.0 Hypertensive chronic kidney disease with stage 5 chronic kidney disease or end stage renal disease; I48.20 Chronic atrial fibrillation, unspecified; K56.0 Paralytic ileus; L97.929 Non-pressure chronic ulcer of unspecified part of left lower leg with unspecified severity; G93.40 Encephalopathy, unspecified; M46.26 Osteomyelitis of vertebra, lumbar region; K56.609 Unspecified intestinal obstruction, unspecified as to partial versus complete obstruction; M46.46 Discitis, unspecified, lumbar region; D63.1 Anemia in chronic kidney disease; E11.622 Type 2 diabetes mellitus with other skin ulcer; E87.6 Hypokalemia; E11.22 Type 2 diabetes mellitus with diabetic chronic kidney disease; E78.5 Hyperlipidemia, unspecified; N40.0 Benign prostatic hyperplasia without lower urinary tract symptoms; R79.89 Other specified abnormal findings of blood chemistry; G40.909 Epilepsy, unspecified, not intractable, without status epilepticus; G47.33 Obstructive sleep apnea (adult) (pediatric); F32.A Depression, unspecified; F41.9 Anxiety disorder, unspecified; Z99.2 Dependence on renal dialysis; Z79.4 Long term (current) use of insulin; Z79.01 Long term (current) use of anticoagulants; Z79.82 Long term (current) use of aspirin; Z95.1 Presence of aortocoronary bypass graft; Z95.5 Presence of coronary angioplasty implant and graft; Z89.611 Acquired absence of right leg above knee; K57.30 Diverticulosis of large intestine without perforation or abscess without bleeding
CPT/HCPCS: 36415; 36430; 70450; 71045; 74018; 74176; 80048; 80053; 80076; 80307; 81001; 82140; 82948; 83605; 83735; 84100; 84145; 84443; 84466; 84478; 84484; 85025; 85610; 85652; 85730; 86140; 86706; 86850; 86900; 86901; 86923; 87040; 87340; 87637; 87641; 92610; 93005; 94640; 96360; 96361; 99291; A9270; C9113; G0257; J0248; J0692; J1100; J1815; J2185; J2704; J2765; J2997; J3370; J3480; J7030; J7040; J7050; J7120; P9016; P9047; Q5105